=== PATIENT | female | born 1935 | race Caucasian/White ===

== ENCOUNTER 2022-01-19 13:39 | Emergency (ER) | payer MEDICARE, BC, SELFPAY ==
[2022-01-19 13:46] VITALS: BP 178/76; PULSE 178; RESP 18; TEMP 36.7; O2SAT 98; BMI 21.1
--- NOTE | 2022-01-19 14:06 | ED_ITS ---
HPI - General Adult General Time Seen by Provider: 14:06 Date Seen: 01/19/22 Chief complaint: Back Injury/Pain Stated complaint: Back pain Time Seen by Provider: 01/19/22 13:45 Source: patient, RN notes reviewed and old records reviewed Mode of arrival: ambulatory Limitations: no limitations History of Present Illness HPI narrative: Patient is an 86-year-old female coming in with back pain as well as pain along both lower rib borders. Last night about 3 or 4:00 a.m. she had severe pain along her left lower rib cage. She had to press on the area and the counter pressure did give her some relief. Seems like it did go across to the right side. She told her daughter that yesterday if she sat with a pillow behind her back and pressed it into her back it helped diminish back pain. She does have significant scoliosis. Her daughters have been wondering if a brace might help her. They have noticed that her right shoulder seems to have more of a hump in it in she seems to be dropping down more towards on the left side. She did see Dr. Jackson this last week, lumbar spine x-rays were obtained. This lumbar spine show deformity of the lumbar spine with scoliosis and severe degenerative disc disease. There was facet degeneration on the right side extending from L3- S1. Patient denies any fevers or chills, no fall or trauma. She is feeling pain along the upper abdomen along the rib border. Eating does not change this. She has had no respiratory symptoms with this. Sometimes she feels when she gets excited she will feel like she can not catch her breath but she has not had any of these symptoms with current problems. 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 Over 30 years ago there was a question of kidney stones, the urologist could not reportedly get them out. She has a scar on her left low back. She sees a plush cutter Dr. Dent in [place]. She is searched for records but they cannot find any further information as to why she only has 1 kidney now. She has been using Tylenol for the pain. She does not feel like there is pain in her chest from this, does not feel like that this is cardiac pain. Related Data Home Medications Medication Instructions Recorded Confirmed cholecalciferol (vitamin D3) 50 50 mcg PO QDAY 12/27/21 12/27/21 mcg (2,000 unit) capsule Previous Rx's Medication Instructions Recorded simvastatin 10 mg tablet 10 mg PO QPM #90 tabs 12/02/21 Allergies Allergy/AdvReac Type Severity Reaction Status Date / Time No Known Drug Allergies Allergy Verified 12/27/21 13:45 Review of Systems Status of ROS: Reports: 10 or more systems reviewed and unremarkable except as noted in History and below PFSH PFS Surgical History S/P appendectomy S/P breast biopsy S/P cataract extraction S/P cholecystectomy Social History Smoking Status: Former smoker Exam Const: Vital Signs, click to edit/add: Vital Signs - 24 hr 01/19/22 13:46 01/19/22 15:57 Temperature 98.1 F Pulse Rate [Right Pulse Oximeter] 178 H 71 Respiratory Rate 18 16 Blood Pressure [Ri ght Upper Arm] 178/76 H 179/83 H Pulse Oximetry 98 99 Oxygen Delivery Me thod Room Air Room Air Documenting provider has reviewed patient's vital signs: yes Common normals: no apparent distress, average body habitus, oriented x3, no limitations and alert General appearance: cooperative, comfortable, well kempt and frail appearing HENMT: Common normals: normocephalic, head/scalp atraumatic and external ears normal Head and scalp: normocephalic and atraumatic External ear: external ears normal Other: Has hearing aids, mildly hard of hearing. Eye: Common normals: PERRL, EOMs intact bilaterally, conjunctivae normal and no scleral icterus Conjunctiva: conjunctiva(e) normal Pupil: PERRL Neck & C-Spine: Common normals: full ROM, no lymphadenopathy, supple, no meningeal signs, no JVD and thyroid normal Thyroid: thyroid normal Chest: Other: She is kyphotic and has scoliotic changes on inspection of her spine but she is palpably nontender throughout the entirety of her spine. Resp: Common normals: normal respiratory effort, no retractions, no use of accessory muscles and clear to auscultation bilaterally Auscultation: clear to auscultation bilaterally Cardio: Common normals: no JVD, regular rate, regular rhythm, S1 normal heart sound, S2 normal heart sound, no gallops, no clicks and no rub Rate: regular rate Rhythm: regular rhythm Heart sounds: S1 normal, S2 normal and murmur (2/6 soft systolic murmur heard) GI: Common normals: Normal to inspection, nondistended, normoactive bowel sounds present, soft to palpation, non-tender, no hepatosplenomegaly, no masses and no bruits Palpation: soft and no hepatosplenomegaly Other: She is not clinically tender but she states she does feel the pain in the upper left abdomen it does go through the epigastric and the right side. When I question her it may or may not be coming from the back radiating through. : Common normals: no CVA tenderness Bladder/kidney exam: no CVA tenderness Back & Pelvis: Common normals: no CVA tenderness Extremity: Common normals: no calf tenderness and no pedal edema Neuro: Common normals: oriented x3 Sensorium/orientation: alert Meningeal signs: no meningeal signs Psych: Appearance: well kempt Course Course Hospital Course: We will obtain lab work including urinalysis. I will image her thoracic spine as well. Her gallbladder is out, she is known to have significant scoliosis. I do agree that this seems likely that it is musculoskeletal and possibly the degenerative from scoliosis. However, will look at labs and consider intra- abdominal etiology as the cause for the pathology. She is hemodynamically stable, no evidence of any fever. Doubt this is infectious. Reevaluation(s) Reevaluation #1: Reviewed with patient and daughter that the labs are certainly reassuring, thoracic spine with scoliosis but no acute findings. She did ambulate well here to bathroom. It does seem that they were most interested in ruling out acute intra-abdominal pathology with her right kidney. I do not think we need to do abdominal imaging at this time, abdomen was clinically not concerning on examination, labs are normal. She has just been using p.r.n. Tylenol, did discuss using a more scheduled. We did discuss possibility of referral for physical therapy or to a specialist in scoliosis. Her daughter was asked me what could be done for scoliosis, with her new treatments. I reviewed with her that I a.m. more where of treatments at the early spectrum IV younger children. I really do not know what could be offered to her mom at this time. They do have a follow-up in clinic on Thursday and they should keep this. We discussed other pain management and muscle relaxants, many of these medications can have adverse effects and increased risk of fall in the elderly. Her daughter understood. Patient seemed quite comfortable and stable here. Time: 16:25 Vital Signs Vital signs: Initial Vital Signs Temperature 98.1 F 01/19/22 13:46 Temperature Source Temporal Artery Scan 01/19/22 13:46 Pulse Rate 178 H 01/19/22 13:46 Respiratory Rate 18 01/19/22 13:46 Blood Pressure 178/76 H 01/19/22 13:46 Blood Pressure Mean 110 01/19/22 13:46 Blood Pressure Position Sitting 01/19/22 13:46 Pulse Oximetry 98 01/19/22 13:46 Oxygen Delivery Method 01/19/22 13:46 Vital Signs Temperature 98.1 F 01/19/22 13:46 Pulse Rate 178 H 01/19/22 13:46 Respiratory Rate 18 01/19/22 13:46 Blood Pressure 178/76 H 01/19/22 13:46 Pulse Oximetry 98 01/19/22 13:46 Oxygen Delivery Method 01/19/22 13:46 Temperature 98.1 F 01/19/22 13:46 Pulse Rate 71 01/19/22 15:57 Respiratory Rate 16 01/19/22 15:57 Blood Pressure 179/83 H 01/19/22 15:57 Pulse Oximetry 99 01/19/22 15:57 Oxygen Delivery Method 01/19/22 15:57 Medical Decision Making Lab Data Lab results reviewed: Yes I reviewed the patient's lab results Labs: Lab Results 01/19/22 01/19/22 01/19/22 Range/Units 14:56 14:56 14:56 WBC 5.36 (4.50-11.00) K/uL RBC 4.55 (4.00-5.20) m/uL Hgb 13.5 (12.0-16.0) gm/dL Hct 41.6 (33.0-51.0) % MCV 91 (80-100) fL MCH 30 (26-34) pg MCHC 33 (32-36) gm/dL RDW Coeff of Neli 14.6 (11.5-15.5) % Plt Count 229 (140-440) K/uL Neut % (Auto) 67.2 (42.0-72.0) % Lymph % (Auto) 22.8 (20-44) % [place] % (Auto) 8.6 (0.0-11.0) % Eos % (Auto) 0.4 (0.0-7.0) % Baso % (Auto) 0.6 (0.0-3.0) % Neut # (Auto) 3.61 (1.7-7.0) K/uL Lymph # (Auto) 1.22 (0.90-2.90) K/uL [place] # (Auto) 0.50 (0.00-0.90) K/UL Eos # (Auto) 0.02 (0.00-0.50) K/uL Baso # (Auto) 0.03 (0.00-0.30) K/uL Abs Immat Gran (auto) 0.02 (0.00-0.30) K/uL Sodium 139 (135-149) mmol/L Potassium 4.1 (3.6-5.1) mmol/L Chloride 104 (96-114) mmol/L Carbon Dioxide 27 (20-32) mmol/L BUN 17 (7-30) mg/dL Creatinine 1.3 (0.5-1.5) mg/dL Estimated Creat Clear 30.58 Estimated GFR 40 ml/min Glucose 179 H (60-115) mg/dL Lactate 1.8 (0.5-1.9) mmol/L Calcium 9.5 (8.4-10.6) mg/dL Total Bilirubin 0.4 (0.1-1.5) mg/dL AST 26 (12-35) U/L ALT 18 (4-35) U/L Alkaline Phosphatase 65 (40-150) U/L Troponin I < 0.01 L (0.01-0.04) ng/mL C-Reactive Protein < 0.5 L (0.5-1.0) mg/dL NT-Pro-B Natriuret Pep 722 H (0-450) PG/mL Total Protein 6.7 (6.0-8.3) g/dL Albumin 3.9 (3.3-5.0) g/dL Lipase 98 (23-300) U/L Urine Color (Yellow) Urine Appearance (Clear) Urine pH (5.0-8.5) Ur Specific [place] (1.000-1.030) Urine Protein (Negative) Urine Glucose (UA) (Negative) Urine Ketones (Negative) Urine Blood (Negative) Urine Nitrite (Negative) Urine Bilirubin (Negative) Urine Urobilinogen (0.2-1.0) Ur Leukocyte Esterase (Negative) 01/19/22 Range/Units 15:45 WBC (4.50-11.00) K/uL RBC (4.00-5.20) m/uL Hgb (12.0-16.0) gm/dL Hct (33.0-51.0) % MCV (80-100) fL MCH (26-34) pg MCHC (32-36) gm/dL RDW Coeff of [place] (11.5-15.5) % Plt Count (140-440) K/uL Neut % (Auto) (42.0-72.0) % Lymph % (Auto) (20-44) % [place] % (Auto) (0.0-11.0) % Eos % (Auto) (0.0-7.0) % Baso % (Auto) (0.0-3.0) % Neut # (Auto) (1.7-7.0) K/uL Lymph # (Auto) (0.90-2.90) K/uL [place] # (Auto) (0.00-0.90) K/UL Eos # (Auto) (0.00-0.50) K/uL Baso # (Auto) (0.00-0.30) K/uL Abs Immat Gran (auto) (0.00-0.30) K/uL Sodium (135-149) mmol/L Potassium (3.6-5.1) mmol/L Chloride (96-114) mmol/L Carbon Dioxide (20-32) mmol/L BUN (7-30) mg/dL Creatinine (0.5-1.5) mg/dL Estimated Creat Clear Estimated GFR ml/min Glucose (60-115) mg/dL Lactate (0.5-1.9) mmol/L Calcium (8.4-10.6) mg/dL Total Bilirubin (0.1-1.5) mg/dL AST (12-35) U/L ALT (4-35) U/L Alkaline Phosphatase (40-150) U/L Troponin I (0.01-0.04) ng/mL C-Reactive Protein (0.5-1.0) mg/dL NT-Pro-B Natriuret Pep (0-450) PG/mL Total Protein (6.0-8.3) g/dL Albumin (3.3-5.0) g/dL Lipase (23-300) U/L Urine Color Yellow (Yellow) Urine Appearance Clear (Clear) Urine pH 7.0 (5.0-8.5) Ur Specific [place] 1.020 (1.000-1.030) Urine Protein Negative (Negative) Urine Glucose (UA) Negative (Negative) Urine Ketones Negative (Negative) Urine Blood Negative (Negative) Urine Nitrite Negative (Negative) Urine Bilirubin Negative (Negative) Urine Urobilinogen 0.2 (0.2-1.0) Ur Leukocyte Esterase Negative (Negative) Imaging Data X-ray thoracic spine: Attestation: I have reviewed the pertinent imaging results. Radiologist's impression: Patient: MAY HALEY Facility:?[facility] Patient ID:?[id number] Site Patient ID:?[id number]. Site :?[id number] Study:?XRay Spine Thoracic -01/19/2022 3:38:22 PM Ordering Physician:Olga Ramey Final Report: INDICATION: Back pain. Scoliosis. FINDINGS: Four views of the thoracic spine show no evidence of acute fracture or dislocation. Dextro convex scoliotic changes in the lower thoracic spine with mild degenerative changes. No other bony or soft tissue abnormalities identified. Dictated by Felice Jackson MD @ 01/19/2022 3:48:28 PM Dictated by: Felice Jackson MD @ 01/19/2022 15:48:35 (Electronic Signature) Critical Care Time Critical Care Time Critical Care Time: No Discharge Plan Discharge Clinical Impression: Scoliosis, Musculoskeletal back pain Condition: Stable Instructions: Chronic Back Pain (DC) Additional Instructions: Consider using Tylenol more scheduled, can be used 1000 mg 3 times a day. Keep appointment in clinic on Thursday. Could consider trying heat or ice and see if either modality did help. If you have significant increase in her pain, develops fever or new symptoms that suggest that this is not coming from your back, please seek re-evaluation. Activity Level: Activity as Tolerated Prescriptions: No Action cholecalciferol (vitamin D3) 50 mcg (2,000 unit) capsule 50 mcg PO QDAY simvastatin 10 mg tablet 10 mg PO QPM Qty: 90 3RF Follow Up/Referrals: Tito Jackson MD [Primary Care Provider] - Stand Alone Forms: [employer] Info Instructions
--- NOTE | 2022-01-19 14:36 | CRLHL7_ITS ---
For Patients: As a result of the Cures Act, medical imaging exams and procedure reports are released immediately into your electronic medical record. You may view this report before your referring provider. If you have questions, please contact your health care provider. INDICATION: Back pain. Scoliosis. FINDINGS: Four views of the thoracic spine show no evidence of acute fracture or dislocation. Dextro convex scoliotic changes in the lower thoracic spine with mild degenerative changes. No other bony or soft tissue abnormalities identified. Dictated by Felice Jackson MD @ 01/19/2022 3:48:28 PM Dictated by: Felice Jackson MD @ 01/19/2022 15:48:35 (Electronically Signed)
--- OUTSIDE RECORDS SUMMARY | 2022-01-19 14:57 | XMS_ITS | Encounter Summary ---
:1935 Author Organization [facility] Address [address] [place] [address] Care Team Providers Name Role Phone Unavailable Primary Care Provider Unavailable Reason for Visit Reason Comments Chest Pain Pt presents stating she was getting ready for bed in her bathroom when she had an aprox 30 min episode of not feeling well. Symptoms include right sided chest pain, bilat shou lder pain, nausea, paleness,left upper chest pain. Currently states she i s feeling better but does have Encounter Details Date Type Department Care Team Description 07/22/2020 - Emergency [place] [facility] Mer[facility] Serra Chest (Primary Dx); 07/23/2020 Department D, M.D. Presyncope; [address] [place] [phone] Social History Tobacco Use Types Packs/Day Years Used Date Smoking Tobacco: Former Cigarettes 0 Quit : 07/23/1990 Smokeless Tobacco: Never Alcohol Use Standard Drinks/Week Comments Not Currently 0 (1 standard drink = 0.6 oz pure alcoho l) Quit 30-35 years ago Alcohol Habits Answer Date Recorded How often do you have a drink containing alcohol? Not asked How many drinks containing alcohol do you have on Not asked a typical day when you are drinking? How often do you have six or more drinks on one Not asked occasion? Comment: Quit 30-35 years ago 07/23/2020 Sex Assigned at Date Recorded Not on file documented as of this encounter Last Filed Vital Signs Vital Sign Reading Time Taken Comments Blood Pressure 134/74 07/23/2020 3:45 AM CDT Pulse 82 07/23/2020 12:45 AM CDT Temperature 37.1 ??C (98.8 ??F) 07/23/2020 12:45 AM CDT Respiratory Rate 19 07/23/2020 3:45 AM CDT Oxygen Saturation 96% 07/23/2020 12:45 AM CDT Inhaled Oxygen Concentration - - Weight 66.8 kg (147 lb 4.8 oz) 07/22/2020 11:19 PM CDT Height - - Body Mass Index 22.85 11/10/2016 5:05 AM CDT documented in this encounter Medications at Time of Discharge Medication Sig Dispensed Refills Start Date End Date amLODIPine (NORVASC) 2.5 Take 1.25 mg by mouth 0 07/20/2020 mg tablet daily. cholecalciferol (VITAMIN Take 1,000 Units by 0 D3) 1,000 Unit capsule mouth daily. geriatric Take 1 tablet by 0 01/30/2015 mbcnlwnh-qmnt-aigm tablet mouth daily. raloxifene (EVISTA) 60 mg Take 60 mg by mouth 0 1 04/25/2018 tablet at bedtime. simvastatin (ZOCOR) 10 mg Take 10 mg by mouth 0 0 10/28/2014 tablet at bedtime. Vanicream-plasticized base Apply 1 application 0 06/17/2016 80-20 % cream with topically 3 (three) triamcinolone acetonide 40 times a day. mg/mL suspension documented as of this encounter ED Notes Mercedez Serra M.D. - 07/22/2020 10:25 PM CDT [facility] EMERGENCY DEPARTMENT ENCOUNTER Patient Name: Karoline Nuñez PCP: No primary care provider on file. SUBJECTIVE CHIEF COMPLAINT/REASON FOR VISIT Chest Pain (Pt presents stating she was getting ready for bed in her bathroom when she had an aprox 30 min episode of not feeling well. Symptoms include right sided chest pain, bilat shoulder pain, nausea, paleness,left upper chest pain. Currently states she is feeling better but does have ) HISTORY OF PRESENT ILLNESS Karoline Nuñez is a 84 y.o. female history of hypertension and hyperlipidemia, on the prior cholecystectomy who is presenting today with chest pain. States she had a normal day, was getting ready for bed in her bathroom when she had 30 minutes of ???not feeling well. She describes right-sided chest pain that then moved to the left side, radiated to both shoulders, had nausea in the feeling of paleness/lightheadedness, with the lingering symptoms being left upper chest pain for 30 minutes. No syncope but felt off, like she needed to sit. She denies pain in the back, and says her arms felt ???funny?? . She just gave it time and the symptoms passed. She has not had these specific symptoms beforebut daughter does note that 2 years ago she was brought to a different hospital for concerns of potential chest pain but at that time workup was negative. She does note that she does certain movements she can cause some muscle skeletal pain in various areas of her chest shoulders and abdomen, but doesnot think that this is reproducing the pain that happened earlier today. History of former tobacco use and hyperlipidemia along with hypertension as above. At this time she denies anything positive on review of systems and states that her symptoms have resolved by the time of arrival REVIEW OF SYSTEMS Constitutional: Negative for fatigue, fever and loss of appetite. Skin: Negative for skin rash. Respiratory: Negative for coughing up blood, coughing up mucus (phlegm), dry cough and dyspnea. Cardiovascular: Positive for chest pain, pressure or tightness. Negative for swelling in the legs orfeet and rapid or fluttering heart beat. Gastrointestinal: Positive for nausea. Negative for abdominal (belly) pain or cramping, blood in stool and constipation. Hematologic: Negative for bruises or bleeds easily. Musculoskeletal: Negative for back pain. Had pain into the bilateral shoulders Neurological: Positive for light-headedness. Negative for loss of consciousness, numbness or shooting pain in hands, arms, legs, or feet, blackouts and weakness in arms or legs. The following systems were negative: Eyes, ENT, MEDICAL HISTORY Past Medical History: Diagnosis Date ??? Chronic Kidney Disease NOS ??? Hyperlipidemia ??? Hypertension NOS SURGICAL HISTORY Past Surgical History: Procedure Laterality Date ??? APPENDECTOMY N/A Appendectomy ??? BREAST BIOPSY ??? CHOLECYSTECTOMY N/A Cholecystectomy ??? EXCISION OF BUNION N/A Bunionectomy ??? EXTRACTION OF CATARACT N/A 07/24/2016 Cataract extraction ??? TONSILLECTOMY N/A Tonsillectomy ??? TYLECTOMY N/A Lumpectomy FAMILY HISTORY Family History Problem Relation Age of Onset ??? Leukemia Mother ??? Heart attack Son ??? Stroke Brother SOCIAL HISTORY Social History Tobacco Use ??? Smoking status: Former Smoker Packs/day: 0.00 ??? Smokeless tobacco: Never Used Substance Use Topics ??? Alcohol use: Not on file ??? Drug use: Not on file OBJECTIVE VITAL SIGNS BP 134/74 Pulse 82 Temp 37.1 ??C (Temporal) Resp 19 Wt 66.8 kg SpO2 96% BMI 22.85 kg/m?? PHYSICAL EXAMINATION Vitals signs and nursing note reviewed. Constitutional General: She is not in acute distress. Appearance: She is not diaphoretic. HENT Head: Normocephalic and atraumatic. Eyes Conjunctiva/sclera: Conjunctivae normal. Pupils: Pupils are equal, round, and reactive to light. Neck Musculoskeletal: Normal range of motion. No neck rigidity. Cardiovascular Rate and Rhythm: Normal rate and regular rhythm. Pulses: Normal pulses. Heart sounds: Murmur present. Comments: Pulses are equal in all 4 extremities. She does have a roughly 2/6 holosystolic murmur Pulmonary Effort: Pulmonary effort is normal. Breath sounds: Normal breath sounds. No wheezing. Abdominal Palpations: Abdomen is soft. Tenderness: There is no abdominal tenderness. There is no guarding or rebound. Musculoskeletal Normal range of motion. General: No swelling or tenderness. Skin General: Skin is warm. Capillary Refill: Capillary refill takes less than 2 seconds. Coloration: Skin is not pale. Findings: No rash. Neurological General: No focal deficit present. Mental Status: She is alert and oriented to person, place, and time. Motor: No weakness. Psychiatric Mood and Affect: Mood normal. Comments: She can be a bit forgetful but parts of the history and family pieces this together DIAGNOSTICS LABS: Labs Reviewed BASIC METABOLIC PANEL, S/P - Abnormal Result Value Potassium, P 4.3 Sodium, P 139 Chloride, P 105 Bicarbonate, P 27 Anion Gap, P 7 BUN, P 19 Creatinine, P 1.31 (*) eGFR Black 43 (*) eGFR Non-Black 38 (*) Calcium, Total, P 9.4 Glucose, P 119 TROPONIN T, 5TH GEN, P - Abnormal Troponin T, 5th gen 11 (*) SARS CORONAVIRUS 2, PCR RAPID, V SARS CoV-2, PCR, Rapid, V Undetected SARS Coronavirus 2, Source, Rapid Swab, Nasopharynx CBC WITH DIFFERENTIAL, B Hemoglobin 12.7 Hematocrit 38.3 Erythrocytes 4.25 MCV 90.1 RBC Distrib Width 15.0 Platelet Count 208 Leukocytes 4.8 Neutrophils 2.42 Lymphocytes 1.55 Monocytes 0.68 Eosinophils 0.14 Basophils 0.02 TROPONIN T, BASELINE, 5TH GEN, P Troponin T, Baseline, 5th gen 9 TROPONIN T, 2H/6H, 5TH GEN, P Troponin T, 2 hr, 5th gen 10 2H Delta 1 2H Delta Interp Not Changing Troponin T, 6 hr, 5th gen CANCELED Narrative: Specimen Information: Specimen ID: [id number] Specimen Type: Blood Specimen Collection Start Date: 07/22/2020 11:13 PM Specimen Received Date: 07/22/2020 11:23 PM Specimen ID: [id number] Specimen Type: Blood RADIOLOGY: DX Chest AP or PA and Lateral 2 Views Final Result Moderate size hiatal hernia. Nodular opacity projects over the anterior thoracic spine on the lateral view, grossly stable compared to 2016; this could represent overlapping soft tissues, osteophyte formation, or other pulmonary etiology, although benign process is favored given relative stability over several years. No pleural effusion. No pneumothorax. Normal cardiomediastinal silhouette. Thoracolumbar dextroscoliosis. EKG: EKG is showing a left bundle-branch block, with associated ST segment changes. I do not appreciate any other acute ischemic changes EMERGENCY DEPARTMENT COURSE and DIFFERENTIAL DIAGNOSIS/MDM: Patient was given the following medications: Medications sodium chloride 0.9 % injection 3 mL (has no administration in time range) sodium chloride 0.9 % injection 10 mL (has no administration in time range) sodium chloride 0.9 % injection 3 mL (has no administration in time range) sodium chloride 0.9 % injection 3 mL (has no administration in time range) sodium chloride 0.9 % injection 10 mL (has no administration in time range) sodium chloride 0.9 % injection 3 mL (has no administration in time range) aspirin chewable tablet 324 mg (324 mg oral Given 07/22/202129) MDM: 84-year-old female with risk factors for coronary disease including hypertension hyperlipidemia presenting with 30 minutes of bilateral chest pain into shoulders, associated with the feeling of pallor and diaphoresis and nausea, which has now resolved. New left bundle branch block on arrival, no active or current pain. First troponin is negative. I did give her 324 mg of aspirin. Consideration for dissection, no pain into the back, pain has completely resolved, pulses are equal and we been without significant hypertension. History of a solo kidney, along with chronic kidney disease. Cardiac silhouette appears normal an x-ray and with her equal pulses in exam at this time, I think the risks outweigh the benefits of a large contrast bolus for dissection scan as I think this is seeming less likely compared to primary cardiac source. Remains pain-free, no additional medications have been given but will need further cardiac workup due to risk factors and the concerning nature of her story along witha new left bundle branch block. No with systolic murmur and age with other risk factors, benefit from echo for further evaluation of valvular disease. No beds locally, patient is agreeable for transferand family prefers [facility]. ED Course as of Jul 23 356 Sun Jul 22, [id number] Prior are similar, patient with only one kidney and follow with renal Creatinine, P(!): 1.31 2236 Call placed to [facility] 230 Accepted to [facility] by Dr Garcia Mon Jul 23, 2020 0003 Patient is continuing to be a poor historian. I asked her re-explain the events of the evening,and initially she changes the story, but then confirms the above (bilateral chest pain, to both shoulders, into arms, pale appearance, diaphoresis). She states this lasted 30 minutes. I continue to worry about primary cardiac concern. HR is reassuring as is SPO2. Normal pulse exam and no current pain.Despite reassuring first delta trop, will continue with plan for a cardiac eval. I think her risk factors, EKG changes and the limited historian make her higher risk. 0230 [facility] unfortunately has added a delay in getting a bed. Calls placed to [facility] as an alternative option [phone] Accepted to [facility] by Dr Morse 035 Initial was 9, 2 hr 10, now 6 hr 11. likely normal variation in the setting of her kidney disease. No pain. Troponin T, 5th gen(!): 11 Final Diagnoses: as of Jul 23 356 Pain Chest Presyncope Bundle Branch Block Left DISPOSITION/PLAN: [facility] DISCHARGE MEDICATIONS: New Prescriptions No medications on file Mercedez Serra M.D. 07/23/20 0243 Mer[facility] Serra M.D. 07/23/20 0248 Mer[facility] Serra M.D. 07/23/20 0357 documented in this encounter Plan of Treatment Not on filedocumented as of this encounter Procedures Procedure Name Priority Date/Time Associated Comments Diagnosis TROPONIN T, 5TH STAT 07/23/2020 3:29 Results f or this GEN, P AM CDT procedure are i n the results section. SARS CORONAVIRUS 2, STAT 07/22/2020 11:14 Resu lts for this PCR RAPID, V PM CDT procedure are i n the results section. TROPONIN T, 2H/6H, Timed 07/22/2020 11:13 Resul ts for this 5TH GEN, P PM CDT procedure are i n the results section. DX CHEST AP OR PA RAD - Semiurgent 07/22/2020 9:50 Res ults for this AND LATERAL 2 VIEWS (Fast; most ED PM CDT proced ure are in patients; some the results inpatients) section. TROPONIN T, STAT 07/22/2020 9:10 Results for this BASELINE, 5TH GEN, PM CDT procedure are in P the results section. CBC WITH STAT 07/22/2020 9:10 Results for this DIFFERENTIAL, B PM CDT procedure ar e in the results section. BASIC METABOLIC STAT 07/22/2020 9:10 Results f or this PANEL, S/P PM CDT procedure are i n the results section. ECG STAT 07/22/2020 9:07 Results for this PM CDT procedure are i n the results section. documented in this encounter Results (ABNORMAL) Troponin T, 5th Generation (07/23/2020 3:29 AM CDT) P athologist Signature Troponin T, 11 (H) <=10 ng/L 07/23/2020 [facility] gen 3:53 AM CDT Comment: Biotin has been identified by the ellyn galvan as a potential interfering substance. ??Higher concentr ations of biotin may be found in multivitamins, hair/nail supple ments, and workout supplements. ??If the result does not ma [facility] clinical observations, repeat testing after patient refrains fr om the use of supplements for at least 12 hours. Specimen Anatomical Collection Method Collection Time Receive d Time (Source) Location / / Volume Laterality Blood (Blood, 07/23/2020 3:29 AM 07/24/19 21 3:39 Venous) CDT AM CDT Mercedez Serra M.D. LAB BLOOD ADD-ON Performing Organization Address City/[facility] Phon e Number [place] [address] [facility] [address] [address] [place] [address] SARS Coronavirus 2, PCR Rapid, V Symptomatic (07/22/2020 11:14 PM CDT) [facility] Method Time Signature SARS CoV-2, Undetected Undetected 07/22/2020 [facility] PCR, Rapid, V 11:43 PM CDT Comment: ----ADDITIONAL INFORMATION---- This RT-PCR test was performed using the Ralph SARS-CoV-2 and Influenza A/B Reagent assay from [employer], which has received Emergency Use Authori zation(EUA) by the U.S. Food and Drug Administration . Fact sheets for this Emergency Use Autho rization (EUA) assay can be found at the following link s: For Healthcare Providers: https://www.fda.gov/media/283904/downloa d For Patients: https://www.fda.gov/media/101392/downloa d SARS Coronavirus 2, Source, Swab, Nasopharynx 07/12 11:19 PM CDT [facility] Rapid Specimen Anatomical Collection Method Collection Time Receive d Time (Source) Location / / Volume Laterality Varies 07/22/2020 11:14 07/22/2020 (Nasopharynx) PM CDT 11:19 PM CDT Mercedez Serra M.D. LAB MICROBIOLOGY - GENERAL O RDERABLES Performing Organization Address City/[facility]/ZIP Code Phon e Number [place] [address] [facility] [address] [address] [place] [address] Troponin T, 2H/6H, 5th Gen (07/22/2020 11:13 PM CDT) athologist Signature Troponin T, 2 10 <=10 ng/L 07/22/2020 [facility] hr, 5th gen 11:38 PM CDT Comment: Biotin has been identified by the ellyn galvan as a potential interfering substance. ??Higher concentr ations of biotin may be found in multivitamins, hair/nail supple ments, and workout supplements. ??If the result does not ma [facility] clinical observations, repeat testing after patient refrains fr om the use of supplements for at least 12 hours. 2H Delta 1 ng/L 07/22/2020 11:38 PM CDT [facility] 2H Delta Interp Not Changing 07/22/2020 11:38 PM C DT [facility] Troponin T, 6 hr, 5th gen CANCELED ng/L 07/22/2020 11: 38 PM CDT [facility] Comment: Result canceled by the thu kelly Specimen Anatomical Collection Method Collection Time Receive d Time (Source) Location / / Volume Laterality Blood (Blood, 07/22/2020 11:13 07/22/2020 Venous) PM CDT 11:23 PM CDT Narrative [facility] - 07/22/2020 11:38 PM CDT Specimen Information: Specimen ID: [id number] Specimen Type: Blood Specimen Collection Start Date: 07/23/19 11:13 PM Specimen Received Date: 07/22/2020 11:23 PM Specimen ID: [id number] Specimen Type: Blood Mercedez Serra M.D. LAB BLOOD TROPONIN Performing Organization Address City/State/ZIP Code Phon e Number [address] [place] [address] DX Chest AP or PA and Lateral 2 Views (07/22/2020 9:50 PM CDT) Anatomical Region Laterality Modality Chest, Thoracic RST LOS, Thoracic ARZ LOS, Thoracic N/A Digital Radiography FLA LOS Specimen (Source) Anatomical Collection Method Collection Time Re ceived Time Location / / Volume Laterality 07/22/2020 10:30 PM CDT Impressions 07/22/2020 10:39 PM CDT Moderate size hiatal hernia. Nodular opacity projects over the anterior thoracic spine on the lateral v iew, grossly stable compared to 2016; this could represent overlapping soft ti ssues, osteophyte formation, or other pulmonary etiology, although benign proc ess is favored given relative stability over several years. No pleural effusion. No pneumothorax. Normal cardiomediastinal silhouette. Thoracolum bar dextroscoliosis. Narrative 07/22/2020 10:39 PM CDT EXAM: DX CHEST AP OR PA AND LATERAL 2 VIEWS Procedure Note Rahul Wall M.D. - 07/22/2020Format ting of this note might be different from the original. EXAM: DX CHEST AP OR PA AND LATERAL 2 EWS IMPRESSION: Moderate size hiatal hernia. Nodular opa city projects over the anterior thoracic spine on the lateral v iew, grossly stable compared to 2016; this could represent overlapping soft ti ssues, osteophyte formation, or other pulmonary etiology, although benign proc ess is favored given relative stability over several years. No pleural effusion. No pneumothorax. Normal cardiomediastinal silhouette. Thoracolum bar dextroscoliosis. Mercedez Serra M.D. IMG DIAGNOSTIC IMAGING PROCE DOUG Troponin T, Baseline, 5th gen (07/22/2020 9:10 PM CDT) athologist Signature Troponin T, 9 <=10 ng/L 07/22/2020 [facility] Baseline, 5th 9:40 PM CDT gen Comment: Biotin has been identified by the ellyn cturer as a potential interfering substance. ??Higher concentr ations of biotin may be found in multivitamins, hair/nail supple ments, and workout supplements. ??If the result does not ma [facility] clinical observations, repeat testing after patient refrains fr om the use of supplements for at least 12 hours. Specimen Anatomical Collection Method Collection Time Receive d Time (Source) Location / / Volume Laterality Blood (Blood, 07/22/2020 9:10 PM 07/23/19 21 9:17 Venous) CDT PM CDT Mercedez Serra M.D. LAB BLOOD TROPONIN Performing Organization Address City/State/ZIP Code Phon e Number [facility]- [address] [place], [place] [address] [facility] [place] [address] (ABNORMAL) Basic Metabolic Panel (07/22/2020 9:10 PM CDT) Analysis Performed At Patho logist Time Signature Potassium, P 4.3 3.6 - 5.2 07/22/2020 [facility] mmol/L 9:35 PM CDT Sodium, P 139 135 - 145 07/22/2020 [facility] mmol/L 9:35 PM CDT Chloride, P 105 98 - 107 07/22/2020 [facility] mmol/L 9:35 PM CDT Bicarbonate, P 27 22 - 29 07/22/2020 [facility] mmol/L 9:35 PM CDT Anion Gap, P 7 7 - 15 07/22/2020 [facility] 9:35 PM CDT BUN (Blood Urea 19 6 - 21 07/22/2020 [facility] Nitrogen), P mg/dL 9:35 PM CDT Creatinine 1.31 (H) 0.59 - 07/22/2020 [facility] 1.04 mg/dL 9:35 PM CDT eGFR-Black/Afri 43 (L) >=60 07/22/2020 [facility] can [place] mL/min/BSA 9:35 PM CDT Comment: ----ADDITIONAL INFORMATION---- Estimated GFR calculated using the 2009 CKD_EPI creatinine equation. eGFR Non-Black/ 38 (L) >=60 mL/min/BSA 07/22/2020 9:35 PM CDT [facility] [place] Comment: ----ADDITIONAL INFORMATION---- Estimated GFR calculated using the 2009 CKD_EPI creatinine equation. Calcium, Total, P 9.4 8.8 - 10.2 mg/dL 07/22/2020 9:35 PM CDT [facility] Glucose, P 119 70 - 140 mg/dL 07/22/2020 9:35 PM CDT N PRG Specimen Anatomical Collection Method Collection Time Receive d Time (Source) Location / / Volume Laterality Blood (Blood, 07/22/2020 9:10 PM 07/23/19 9:17 Venous) CDT PM CDT Mercedez Serra M.D. LAB BLOOD ADD-ON Performing Organization Address City/State/ZIP Code Phon e Number [facility]- [address] [place], [place] [address] [facility] [place] [place] [address] CBC with Differential, Blood (07/22/2020 9:10 PM CDT) P athologist Signature Hemoglobin 12.7 11.6 - 07/22/2020 [facility] 15.0 g/dL 9:22 PM CDT Hematocrit 38.3 35.5 - 07/22/2020 [facility] 44.9 % 9:22 PM CDT Erythrocytes 4.25 3.92 - 07/22/2020 [facility] 5.13 9:22 PM CDT x10(12)/L MCV 90.1 78.2 - 07/22/2020 [facility] 97.9 fL 9:22 PM CDT RBC Distrib Width 15.0 12.2 - 07/22/2020 [facility] 16.1 % 9:22 PM CDT Platelet Count 208 157 - 371 07/22/2020 [facility] x10(9)/L 9:22 PM CDT Leukocytes 4.8 3.4 - 9.6 07/22/2020 [facility] x10(9)/L 9:22 PM CDT Neutrophils 2.42 1.56 - 07/22/2020 [facility] 6.45 9:22 PM CDT x10(9)/L Lymphocytes 1.55 0.95 - 07/22/2020 [facility] 3.07 9:22 PM CDT x10(9)/L Monocytes 0.68 0.26 - 07/22/2020 [facility] 0.81 9:22 PM CDT x10(9)/L Eosinophils 0.14 0.03 - 07/22/2020 [facility] 0.48 9:22 PM CDT x10(9)/L Basophils 0.02 0.01 - 07/22/2020 [facility] 0.08 9:22 PM CDT x10(9)/L Specimen Anatomical Collection Method Collection Time Receive d Time (Source) Location / / Volume Laterality Blood (Blood, 07/22/2020 9:10 PM 07/23/19 21 9:17 Venous) CDT PM CDT Mercedez Serra M.D. LAB BLOOD ADD-ON Performing Organization Address City/State/ZIP Code Phon e Number [facility]- [address] [place], [place] [address] [facility] [place] [address] ECG 12 Lead (07/22/2020 9:07 PM CDT) P athologist Signature Ventricular Rate 75 BPM MUSE ECG/Min [place] Interval 162 ms MUSE QRSD Interval 142 ms MUSE QT Interval 432 ms MUSE QTC Interval 482 ms MUSE P [place] 40 degrees MUSE R [place] 36 degrees MUSE T Wave [place] 36 degrees MUSE Specimen Anatomical Collection Method Collection Time Receive d Time (Source) Location / / Volume Laterality 07/22/2020 9:07 PM 8:42 CDT AM CDT Impressions MUSE - 07/22/2020 9:16 PM CDT Normal sinus rhythm Left bundle branch block T wave abnormality, consider lateral isc hemia When compared with ECG of 06-JAN-2016 12 :43, Premature ventricular complexes are no l onger present Left bundle branch block is now present Reviewed by SHEA Tompkins Narrative This result has an attachment that is no t available. Procedure Note Jason Doan M.D. - 07/23/2020Formatt ing of this note might be different from the original. IMPRESSION: Normal sinus rhythm Left bundle branch block T wave abnormality, consider lateral isc hemia When compared with ECG of 06-JAN-2016 12 :43, Premature ventricular complexes are no l onger present Left bundle branch block is now present Reviewed by SHEA Tompkins Mercedez Serra M.D. ECG ORDERABLES Performing Organization Address City/State/ZIP Code Phon e Number MUSE MUSE NA documented in this encounter Visit Diagnoses Diagnosis Pain Chest - Primary Presyncope Bundle Branch Block Left documented in this encounter Administered Medications Inactive Administered Medications - up to 3 most recent administrations Medication Order MAR Action Action Date Dose Rate Site aspirin chewable tablet 324 mg Given 07/22/2020 9:30 PM CDT 324 mg 324 mg, oral, Once, On 07/22/20 at 2121, For 1 dose sodium chloride 0.9 % injection 10 mL 10 mL, intravenous, As needed, line care, Starting on Thu07/22/20 at 2102, Peripheral Intravenous Catheter and Rapid Infusion Cat heter, prior to blood sampling, post blood transfusion or post blood samplin g sodium chloride 0.9 % injection 10 mL 10 mL, intravenous, As needed, line care, Starting on [place] 07/22/20 at 2105, Peripheral Intravenous Catheter and Rapid Infusion Cat heter, prior to blood sampling, post blood transfusion or post blood samplin g sodium chloride 0.9 % injection 3 mL 3 mL, intravenous, As needed, line care, Starting on [place] 07/22/20 at 2102, Prior to and following infusion and between multi ple consecutive infusions: sodium chloride 0.9 % injection sodium chloride 0.9 % injection 3 mL 3 mL, intravenous, Every 12 hours scheduled, First dos e on Thu07/23/20 at 0900, Peripheral Intravenous Catheter and Rapi d Infusion Catheter, when no infusion to maintain patency sodium chloride 0.9 % injection 3 mL 3 mL, intravenous, As needed, line care, Starting on [place] 07/22/20 at 2105, Prior to and following infusion and between multi ple consecutive infusions: sodium chloride 0.9 % injection sodium chloride 0.9 % injection 3 mL 3 mL, intravenous, Every 12 hours scheduled, First dos e on Thu07/23/20 at 0900, Peripheral Intravenous Catheter and Rapi d Infusion Catheter, when no infusion to maintain patency documented in this encounter Active and Recently Administered Medications Times are shown in CDT. Scheduled Medication Order 07/21/2020 07/22/2020 07/23/2020 aspirin chewable tablet 324 mg (COMPLETED) 2129 (Given - Provider: Jenny Martinez R.N.) 324 mg, oral, Once, On [place] 07/22/20 at 2121, For 1 dose sodium chloride 0.9 % injection 3 mL 3 mL, intravenous, Every 12 hours schedu led, First dose on Thu07/23/20 at 0900, Peripheral Intravenous Catheter and Rapid Infusion Catheter, when no infusion to maintain patency sodium chloride 0.9 % injection 3 mL 3 mL, intravenous, Every 12 hours schedu led, First dose on Thu07/23/20 at 0900, Peripheral Intravenous Catheter and Rapid Infusion Catheter, when no infusion to maintain patency PRN Medication Order 07/21/2020 07/22/2020 07/23/2020 sodium chloride 0.9 % injection 10 mL 10 mL, intravenous, As needed, line care , Starting on 07/22/20 at 2102, Peripheral Intravenous Catheter and Rapid Infusion Catheter, prior to blood sampling, post blood transfusion or post blood sampling sodium chloride 0.9 % injection 10 mL 10 mL, intravenous, As needed, line care , Starting on 07/22/20 at 2105, Peripheral Intravenous Catheter and Rapid Infusion Catheter, prior to blood sampling, post blood transfusion or post blood sampling sodium chloride 0.9 % injection 3 mL 3 mL, intravenous, As needed, line care, Starting on 07/22/20 at 2102, Prior to and following infusion and between multiple consecutive infusions: sodium chloride 0.9 % injection sodium chloride 0.9 % injection 3 mL 3 mL, intravenous, As needed, line care, Starting on 07/22/20 at 2105, Prior to and following infusion and between multiple consecutive infusions: sodium chloride 0.9 % injection documented in this encounter Additional Health Concerns Infection Onset Date Last Indicated Resolved Time COVID19 Pending 07/22/2020 07/22/2020 07/22/2020 11:43 PM CDT documented as of this encounter
--- OUTSIDE RECORDS SUMMARY | 2022-01-19 14:57 | XMS_ITS | Encounter Summary ---
:1935 Author Organization [facility] Address [address] [place] [address] Care Team Providers Name Role Phone Unavailable Primary Care Provider Unavailable Reason for Visit Reason Onset Date Comments Testing For Upper Respiratory Virus Symptoms 03/15/2021 Encounter Details Date Type Department Care Team Description 03/15/2021 External Outreach Department of [facility] Noreen Kimbrough, Contact With And Medicine in [facility] C.N.P., (Suspected) Exposure [place], [place] D.N.P. To COVID-19 (Primary [address] Dx) [place] [phone] Social History Tobacco Use Types Packs/Day Years [...] on file documented as of this encounter Progress Notes Charleen Jolly, R.M.A. - 03/15/2021 7:53 AM CST Encounter created for symptomatic infectious disease screening with possible COVID, Influenza, RSV, and/or Group A Strep testing. ER MAKER documented in this encounter Plan of Treatment Not on filedocumented as of this encounter Procedures Procedure Name Priority Date/Time Associated Diagnosis Comme nts SARS CORONAVIRUS-2 Routine 03/15/2021 12:55 PM Contact With An d Results for this RNA, V MARKER MAKER (Suspected) Exposure procedu re are in To COVID-19 the results section. documented in this encounter Results SARS Coronavirus-2 RNA, V Symptomatic (03/15/2021 12:55 PM MARKER MAKER) [facility] Method Time Signature SARS-CoV-2 Swab, 03/16/2021 MKTO Specimen Nasopharynx 12:40 AM Source MARKER MAKER SARS CoV-2 Undetected Undetected 03/16/2021 MKTO RNA, TMA 12:40 AM MARKER MAKER Comment: SARS-CoV-2 RNA absent. This result does not rule out COVID-19 in the patient, as the sensitivity of the test depends o n the timing of the specimen collection and the quality of the specim en. Result should be correlated with patient's history and clinical presentat ion. ----ADDITIONAL INFORMATION---- This molecular amplification test was pe rformed using the Aptima SARS-CoV-2 assay ([employer] on the [place] ERNs tem under emergency use authorization (EUA) by the U.S. Food and Drug Administ ration. Fact sheets for this EUA assay can be fo und at the following links: For Healthcare Providers: https://www.fd a.gov/media/008767/download For Patients: https://www.fda.gov/media/ 689823/download Specimen Anatomical Collection Method Collection Time Receive d Time (Source) Location / / Volume Laterality Varies 03/15/2021 12:55 03/15/2021 6:01 (Nasopharynx) PM MARKER MAKER PM MARKER MAKER Noreen Kimbrough APRN, C.N.P., D.N.P. LAB MICROBIOLOGY - GENERAL ORDERABLES Performing Organization Address City/State/ZIP Code Phon e Number [facility]- [address] [place] [address] [id number] [place] [address] [address] documented in this encounter Visit Diagnoses Diagnosis Contact With And (Suspected) Exposure To COVID-19 - Primary documented in this encounter Additional Health Concerns Infection Onset Date Last Indicated Resolved Time COVID19 Pending 03/15/2021 03/15/2021 03/16/2021 12:41 AM MARKER MAKER documented as of this encounter
--- OUTSIDE RECORDS SUMMARY | 2022-01-19 14:57 | XMS_ITS | Encounter Summary ---
:1935 Author Organization [facility] Address [address] [place] [address] Care Team Providers Name Role Phone Barbra Ryder M.D., Vinnie Vasquez Primary Care Provider Encounter Details Date Type Department Care Team Description 02/23/2019 Hospital Encounter Department of Vinnie Belle Routine Screening Radiology in Jelani Ryder M.D. Breast Exam [place], [place] [address] [place] [phone] Social History Tobacco Use Types Packs/Day Years Used Date Smoking Tobacco: Former Cigarettes 0 Smokeless Tobacco: Never Sex Assigned at Date Recorded Not on file documented as of this encounter Medications at Time of Discharge Medication Sig Dispensed Refills Start Date End Date cholecalciferol (VITAMIN Take 1,000 Units by 0 D3) 1,000 Unit capsule mouth daily. geriatric Take 1 tablet by 0 01/30/2015 oyegsoeq-tybg-ldyy tablet mouth daily. raloxifene (EVISTA) 60 mg Take 60 mg by mouth 0 1 04/25/2018 tablet at bedtime. simvastatin (ZOCOR) 10 mg Take 10 mg by mouth 0 0 10/28/2014 tablet at bedtime. Vanicream-plasticized Apply 1 application 0 06/17 base 80-20 % cream with topically 3 (three) triamcinolone acetonide times a day. 40 mg/mL suspension ofloxacin (OCUFLOX) 0.3 % Administer 5 drops 5 mL 0 03/02/2019 ophthalmic solution into the left ear 2 (two) times a day for 7 days. ibuprofen (ADVIL,MOTRIN) Take 400 mg by mouth 0 07/23/2020 400 mg tablet as needed for pain. raNITIdine (ZANTAC) 150 150 mg. 0 10/28/2014 0 07/23/2020 mg tablet documented as of this encounter Plan of Treatment Not on filedocumented as of this encounter Procedures Procedure Name Priority Date/Time Associated Comments Diagnosis BI BREAST SCREENING Routine 02/23/2019 10:39 Routine Screening Results for this BILATERAL WITH AM POSTAL SUPERVISOR Breast Exam procedure are in TOMOSYNTHESIS the results section. documented in this encounter Results BI Breast Screening Bilateral with Tomosynthesis (02/23/2019 10:39 AM POSTAL SUPERVISOR) Anatomical Region Laterality Modality Breast, Breast Imaging [facility] LOS, Breast Imaging ARZ LOS, [address] st Bilateral Mammography Imaging FLA LOS Specimen (Source) Anatomical Collection Method Collection Time Re ceived Time Location / / Volume Laterality 02/23/2019 11:15 AM POSTAL SUPERVISOR Impressions 02/23/2019 11:17 AM POSTAL SUPERVISOR Negative. RECOMMENDATION: ??Annual Screening Mammo gram ASSESSMENT: ??BI-RADS: 1: Negative. Narrative 02/23/2019 11:17 AM POSTAL SUPERVISOR EXAM: ??BI BREAST SCREENING BILATERAL WITH TOMOSYNTHESIS Current study was evaluated with a Compu ter Aided Detection (CAD) system. INDICATION: ??Screening mammogram. COMPARISON: ??Prior exam(s) were availab le and reviewed for comparison. DENSITY: ??b. There are scattered areas of fibroglandular density. FINDINGS: ??No mammographic findings of malignancy. Procedure Note Kristopher Morris M.D. - 02/23/2019Fo rmatting of this note might be different from the original. EXAM: BI BREAST SCREENING BILATERAL WITH TOMOSYNTHESIS Current study was evaluated with a Compu ter Aided Detection (CAD) system. INDICATION: Screening mammogram. COMPARISON: Prior exam(s) were available and reviewed for comparison. DENSITY: b. There are scattered areas of fibroglandular density. FINDINGS: No mammographic findings of ma lignancy. IMPRESSION: Negative. RECOMMENDATION: Annual Screening Mammogr am ASSESSMENT: BI-RADS: 1: Negative. Vinnie Belle Jr., M.D. IMG BI PROCEDURES documented in this encounter Visit Diagnoses Diagnosis Routine Screening Breast Exam documented in this encounter Care Teams Security Orderly Relationship Specialty Start Date End Date Vinnie Belle Jr., M.D. PCP - General 09/25/16 02/24/19 [address] [place] [address] documented as of this encounter
--- OUTSIDE RECORDS SUMMARY | 2022-01-19 14:57 | XMS_ITS | Clinical Summary ---
:1935 Author Organization [facility] [place] [address] Care Team Providers Name Role Phone Tito Jackson MD Primary Care Provider Allergies Active Allergy Reactions Severity Noted Date Comments Iron Rash 08/25/2016 Sulfamethoxazole-Trimethoprim Rash 11/14/2014 Medications Medication Sig Dispensed Refills Start Date End Date Status cholecalciferol (VITAMIN Take 1 capsule 0 11/14/2014 Active D) 1,000 unit capsule by mouth once daily. geriatric Take 1 tablet by 0 01/30/2015 Ac tive xxjnpewriypr-htmp-odhwlo mouth once ls (GERITOL; CENTRUM daily. SILVER) tablet raloxifene (EVISTA) 60 1 tablet once 10 01/30/2015 Active mg tablet daily. simvastatin (ZOCOR) 10 1 tablet once 1 02/14/2015 Active mg tablet daily with evening meal. amLODIPine (NORVASC) 2.5 Take 1.25 mg by 0 1 Active mg tablet mouth. acetaminophen (TYLENOL Take 500 mg by 0 Active EXTRA STRGTH) 500 mg mouth every 6 tablet hours if needed. polyvinyl alcohol OTC Dry Eye Eye Drops-one drop in each eye 15 mL 0 10/03/2021 Active (ARTIFICAL TEARS) 1.4 % PRN for dry eyes. ophthalmic solution Active Problems No known active problems Encounters Date Type Specialty Care Team Description 11/04/2021 Telephone Maria Dent MD Resu lts (Basic metabolic panel) from Last 3 Months Social History Tobacco Use Types Packs/Day Years Used Date Former Smoker Cigarettes 0.25 3 Smokeless Tobacco: Never Used Alcohol Use Standard Drinks/Week Comments No 0 (1 standard drink = 0.6 oz pure alcoho l) Sex Assigned at Date Recorded Not on file Obstetrics History Last Filed Vital Signs Vital Sign Reading Time Taken Comments Blood Pressure 138/68 10/03/2021 3:32 PM CDT Pulse 76 10/03/2021 3:32 PM CDT Temperature - - Respiratory Rate 16 08/25/2016 9:46 AM CDT Oxygen Saturation - - Inhaled Oxygen Concentration - - Weight 61 kg (134 lb 8 oz) 10/03/2021 3:32 PM CDT water Height 171 cm (5' 7.32) 08/31/2018 9:39 AM CDT Body Mass Index 20.86 08/31/2018 9:39 AM CDT Plan of Treatment Upcoming Encounters Date Type Specialty Care Team Description 10/02/2022 Office Visit Maria Dent MD [address] [facility] [address] [phone] (Wo rk) Health Maintenance Due Date Last Done Comments Tdap 12/15/1946 Depression screening for age 12+ 1948 Tetanus booster 1956 Zoster (shingles) series for age 50+ (1 of 1986 2) DEXA/DXA scan for age 65+ 2001 Medicare Wellness for age 65+ 2001 Pneumococcal series for age 65+ (1 - PCV) 2001 BMI (ht and wt on same day) for age 18+ 09/01/2019 09/01/19 19 COVID-19 vaccine series (3 - Booster for 11/06/2020 021, 05/19/2020 Pfizer series) Influenza for age 65+ 12/12/2021 Results Not on filefrom Last 3 Months Insurance Payer Benefit Plan / Subscriber ID Effective Dates Phone Addre ss Type Group MEDICARE PART B MEDICARE PART B [id number] 2001-Presen ATTN: CLAIMS - HB USE ONLY HB ONLY t [address] [place] [address] [employer]UE [employer] BLUE [employer]OSS [id number] 2014-[place]en [id number] [place] [address] [place], [place] [id number] BLUE CROSS [place] BLUE CROSS [id number] 2017-Presen [address] [address] [place] [address] [place], [place] ONLY [id number] Care Teams Slate Splitting Supervisor Relationship Specialty Start Date End Date Tito Jackson MD PCP - General Family Practice 08/14/20 [address] [place] [address]
--- OUTSIDE RECORDS SUMMARY | 2022-01-19 14:57 | XMS_ITS | Encounter Summary ---
:1935 Author Organization [facility] Address [address] [place] [address] Care Team Providers Name Role Phone Unavailable Primary Care Provider Unavailable Encounter Details Date Type Department Care Team Description 03/14/2021 Clinical Communication Urgent Care, [facility], in [place], [place] [address] [place] [id number] Social History Tobacco Use Types Packs/Day Years [...] on file documented as of this encounter Miscellaneous Notes Telephone Encounter - Broderick Clifton N - 03/14/2021 12:18 PM CST What is the purpose of the call?: Requesting Testing Only Request Testing In the past 14 days are any of the following symptoms new to you and not related to an existing health condition?: No symptoms noted In the past 14 days have you had close contact* with a person who has a LABORATORY CONFIRMED case ofCOVID-19?: Yes exposure noted. [place] patient, instruct to quarantine, testing indicated (End Screening) Plan: Endpoint recommendation: Testing indicated, advised to be swabbed for COVID-19 Only , sent to [facility]: An appointment is needed for testing. Call [phone] during the hours of Mon-Fri 8 am - 4 pm or Sat/Sun 9 am - 2 pm to schedule an appointment time. Scheduling staff will provide instructions on location and check in for your appointment. , Please avoid using public transportation perCDC recommendation. If you do not have personal transportation please self-quarantine until a personal transportation option is available. o *Reminder if sending patient for testing in [facility] or [facility], route encounter to the correct testing pool. ENT DEVELOPMENT ADVISOR documented in this encounter Plan of Treatment Not on filedocumented as of this encounter Visit Diagnoses Not on filedocumented in this encounter Additional Health Concerns Infection Onset Date Last Indicated Resolved Time COVID19 Pending 03/15/2021 03/15/2021 03/16/2021 12:41 AM STUDENT DEVELOPMENT ADVISOR documented as of this encounter
--- OUTSIDE RECORDS SUMMARY | 2022-01-19 14:57 | XMS_ITS | Clinical Summary ---
:1935 Author Organization [facility] Address [address] [place] [address] Care Team Providers Name Role Phone Unavailable Primary Care Provider Unavailable Source Comments Patient records contain information from all sites at [facility]. For routine questions regarding patient records, call [phone] during business hours, M-F 8:00 AM - 5:00 PM Central Time. Record requests for emergency care only can be directed to [phone] at any time.[facility] Allergies Active Allergy Reactions Severity Noted Date Comments Iron Rash 08/25/2016 Sulfamethoxazole-Trimethoprim Rash 10/19/2014 Zinc Acetate Rash 03/24/2013 Medications Medication Sig Dispensed Refills Start Date End Date Status raloxifene (EVISTA) 60 Take 60 mg by 0 02/23/2019 Active mg tablet mouth at bedtime. simvastatin (ZOCOR) 10 Take 10 mg by 0 10/28/2014 Active mg tablet mouth at bedtime. Vanicream-plasticized Apply 1 0 06/17/2016 Active base 80-20 % cream application with triamcinolone topically 3 acetonide 40 mg/mL (three) times a suspension day. cholecalciferol Take 1,000 Units 0 11/14/2014 Active (VITAMIN D3) 1,000 by mouth daily. Unit capsule geriatric Take 1 tablet by 0 01/30/2015 Ac tive nwmfcwdj-pwgk-jrfw mouth daily. tablet amLODIPine (NORVASC) Take 1.25 mg by 0 07/20/2020 Active 2.5 mg tablet mouth daily. acetaminophen Take 500 mg by 0 A ctive (TYLENOL) 500 mg mouth every 6 tablet (six) hours as needed for pain. 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 10/19/2014 Overview: Chronic Renal Failure Stage IV GFR 15-29 Hypertension NOS 10/19/2014 Overview: Hypertension (HTN) Essential NOS Family History Medical History Relation Name Comments Stroke Brother Leukemia Mother Heart attack Son Relation Name Status Comments Brother Mother Son Social History Tobacco Use Types Packs/Day Years [...] Assigned at Date Recorded Not on file Last Filed Vital Signs Vital Sign Reading Time Taken Comments Blood Pressure 149/70 07/23/2020 5:15 AM CDT Pulse 81 07/23/2020 5:15 AM CDT Temperature 36.5 ??C (97.7 ??F) 07/23/2020 11:00 AM CDT Respiratory Rate 18 07/23/2020 5:15 AM CDT Oxygen Saturation 95% 07/23/2020 5:15 AM CDT Inhaled Oxygen Concentration - - Weight 65.4 kg (144 lb 2.9 oz) 07/23/2020 5:15 AM CDT Height 170.2 cm (5' 7) 07/23/2020 5:15 AM CDT Body Mass Index 22.58 07/23/2020 5:15 AM CDT Plan of Treatment Health Maintenance Due Date Last Done Comments Depression Monitoring (PHQ-9) 1935 Office Visit for Blood Pressure 1935 Check / Re-check Zoster Vaccines (1 of 2) 04/01/2012 02/05/2012 Pneumococcal vaccine (65+ years) 01/09/2018 01/09/2017, , (2 - PPSV23 or PCV20) 02/07/2014 Fall Risk Screen (Annual) 04/13/2021 COVID-19 Vaccine (4 - Booster for 12/23/2021 10/28/2021, , Pfizer series) 05/19/2020 Influenza Vaccine (#1) 2022 01/22/2021, 01/27/2019, 01/19/2018, Additional history exists DTaP,Tdap,and Td Vaccines (3 - Td 08/13/2028 08/13/2018, or Tdap) Insurance Payer Benefit Plan Subscriber ID Effective Phone Address Typ e / Group Dates MEDICARE MEDICARE A [id number] 2001-Pres [address] [place] [address] [employer]UE [employer] [id number] 2016-Pres [phone] [address] Cost Share BLUE SHIELD BLUE COST ent [phone] [place] [address] Advance Directives For more information, please contact: [phone] Latest Code Status on File Code Status Date Activated Date Inactivated Comments Full Code 07/23/2020 6:09 AM 07/23/2020 9:41 PM Full Code: Discussed
--- OUTSIDE RECORDS SUMMARY | 2022-01-19 14:57 | XMS_ITS | Encounter Summary ---
:1935 Author Organization [facility] Address [address] [place] [address] Care Team Providers Name Role Phone Unavailable Primary Care Provider Unavailable Encounter Details Date Type Department Care Team Description 05/22/2016 Hospital Encounter HX [facility] Charisma He P.A.-C., VANDANA Social History Tobacco Use Types Packs/Day Years Used Date Smoking Tobacco: Former Sex Assigned at Date Recorded Not on file documented as of this encounter Last Filed Vital Signs Vital Sign Reading Time Taken Comments Blood Pressure 132/64 05/22/2016 3:32 PM ASSEMBLER CAMPER Pulse 112 05/22/2016 3:32 PM ASSEMBLER CAMPER Temperature - - Respiratory Rate - - Oxygen Saturation - - Inhaled Oxygen Concentration - - Weight - - Height - - Body Mass Index - - documented in this encounter Medications at Time of Discharge Medication Sig Dispensed Refills Start Date End Date cholecalciferol (VITAMIN Take 1,000 Units 0 11/14 D3) 1,000 Unit capsule by mouth daily. geriatric Take 1 tablet by 0 01/30/2015 ifpugioq-uovs-nuhn tablet mouth daily. simvastatin (ZOCOR) 10 mg Take 10 mg by 0 015 tablet mouth at bedtime. raNITIdine (ZANTAC) 150 mg 150 mg. 0 5 07/23/2020 tablet documented as of this encounter Progress Notes James Huffman P.A.-C. - 05/22/2016 2:44 PM CST [id number] CHIEF COMPLAINT/REASON FOR VISIT Sore throat. Please see the medication and allergy tabs in [employer]. They were updated today. HISTORY OF PRESENT ILLNESS The patient started with a sore throat today. She has not had any fever, fatigue or body aches. She has otherwise been feeling well. She did have a cold a short time ago that she got over. The patient is a former smoker. She quit in 1969. SYSTEMS REVIEW CONSTITUTIONAL: Negative for fever, fatigue or body aches. ENT: No ear pain. No nasal congestion. She does have a sore throat. It hurts to swallow. RESPIRATORY: No cough. SKIN: No rashes. GI: No stomach upset. NEURO: No headaches. TESTS: Rapid strep test is negative. Culture is pending. PAST MEDICAL/SURGICAL HISTORY Past medical history, the patient does have: Chronic renal failure. Depression. Reflux. Hypertension. Tricuspid regurgitation. She is seen in another clinic. PHYSICAL EXAMINATION PSYCH: Alert and oriented. No acute distress. ENT: Ears: TMs pearly valadez. Nose: Clear nasal drainage. No congestion noted. Throat: Mild erythema in posterior pharynx. No lymphadenopathy. LUNGS: Clear to auscultation. HEART: Mildly tachycardic at 112. NECK: Supple. SKIN: [place], warm and dry. IMPRESSION/REPORT/PLAN 1. Non-Streptococcal pharyngitis. 2. Viral syndrome. Could even be allergy related. She does not seem to be sick at all. PLAN: Rest, fluids. I did suggest she try her allergy medicine for a couple of weeks to see what that does. She is to follow up if any further concerns arise or symptoms are just not improving over thenext few days. She is in agreement with this plan. Ida Saeed/pos Electronically Signed By: JAMES HUFFMAN PA-C On: 05/26/2016 02:30 PM Source: [facility] MHSDOLBEYNONRADSYS Document Id: [id number] MBLER CAMPER documented in this encounter Procedure Notes Gagan Tran C.M.A. - 05/22/2016 3:48 PM CST Rapid Strep A Screen POC Rapid Strep A Screen POC Entered On: 05/22/2016 15:48 ASSEMBLER CAMPER Performed On: 05/22/2016 15:48 ASSEMBLER CAMPER by GAGAN TRAN CMA Rapid Strep A Screen POC Rapid Strep A Screen POC : Negative Internal Positive QC : Pass Internal Negative QC : Pass Rapid Strep Device Lot Number : [id number] Rapid Strep Device Expiration Date : 08/10/2017 CDT CHELSEA GAGAN Birch [facility] - 05/22/2016 15:48 ASSEMBLER CAMPER Source: [facility] POWERCHART Document Id: [id number] ASSEMBLER CAMPER!7 MBLER CAMPER documented in this encounter Miscellaneous Notes Miscellaneous - James Huffman P.A.-C. - 05/22/2016 3:56 PM CST Ambulatory Patient Summary Express Care - [address] [phone] Visit Information Name: KAROLINE HALEY [facility] Number: [id number] Current Date: 05/22/2016 15:56:00 Physicians Attending Provider: JAMES HUFFMAN PA-C Primary Care Provider: BRITNEY BALDWIN MD KAROLINE HALEY has been given the following list of follow-up instructions, medication list, and patient education materials: Follow-up Instructions Your Medications Here is a list of your medications. It is important to take your medications as directed. Use a pillbox or chart to help remind you to take your medications. Please let your doctor or nurse know if you have problems taking your medications. Medication/Strength How to Take Indications/Special Instructions/Comments/Notes for Patient Medication Changes/Routing *ascorbic acid (ascorbic acid 500 mg oral tablet) 1 Tablet(s), Oral, two times a day aspirin (aspirin 81 mg oral delayed release tablet) 1 Tablet(s), Oral, once a day cholecalciferol (Vitamin D3 1000 intl units oral tablet) 1 Tablet(s), Oral, once a day *ferrous gluconate (ferrous gluconate 325 mg (36 mg elemental iron) oral tablet) 1 Tablet(s), Oral, two times a day multivitamin with minerals (Centrum Silver Women's oral tablet) orphenadrine (orphenadrine 100 mg oral tablet, extended release) 1 Tablet(s), Oral, as needed raloxifene (raloxifene 60 mg oral tablet) 1 Tablet(s), Oral, once a day ranitidine (ranitidine 150 mg oral tablet) 1 Tablet(s), Oral, once a day (at bedtime) *saccharomyces boulardii lyo (saccharomyces boulardii lyo 250 mg oral capsule) 1 cap, Oral, two times a day simvastatin (simvastatin 10 mg oral tablet) 1 Tablet(s), Oral, once a day (at bedtime) *traZODone (traZODone 50 mg oral tablet) 0.5 Tablet(s), Oral, once a day (at bedtime) as needed for Sleep * You have let us know that you are not taking this medication as listed. Please talk with your primary care provider or the health care provider who prescribed the medication as soon as possible. Stop Taking the Following Medications: Medication list as of 05-22-16 15:56 Attention: If you have any medications at home that are not on this list, DO NOT take them until youcontact your provider for clarification. Give a copy of your medication list to your primary care provider. Update your medication list any time medications or doses are changed and carry your medication list at all times in case of emergency. Electronically Signed By: Signed On: Your Allergies & Intolerances Substance Reaction Symptoms Category Comments Septra Drug zinc acetate containing compounds rash Drug Your Problem List Problem Status Onset Comments Hypertension (HTN) Essential NOS Active Disease Gastroesophageal Reflux (GERD JAMEY) Active Chronic Renal Failure Stage IV GFR 15-29 Active Regurgitation Tricuspid NOS Active Depression NOS Active Your Upcoming Appointments Date Time Location Provider No Appointments found Attention: Contact your local Clinic if further appointment detail needed. Consider Using Patient Online Services Patient Online Services is a secure online and Mobile application that lets you: ?? View lab and test results ?? View portions of your medical record including clinical notes, immunizations and discharge summaries ?? Request an appointment or medication refill ?? Review your appointment schedule ?? Send secure messages to your care team Its easy to create an account if you dont have one. Go to [email or web address] and click on Create Your Account. Then, follow the directions to complete the online form. Youll be asked for your [facility] number which you can find at the top of this document. Your Goals/Additional instructions: Source: [facility] POWERCHART Document Id: [id number] MBLER CAMPER Miscellaneous - James Huffman P.A.-C. - 05/22/2016 3:56 PM CST Ambulatory Discharge Medication List Express Care - [address] [id number] Visit Information Name: SUDHAKAROLINE [facility] Number: [id number] Current Date: 05/22/2016 15:56:00 Attending Provider: JAMES HUFFMAN PA-C Primary Care Provider: BRITNEY BALDWIN MD SUDHAKAROLINE has been given the following list of medications: Your Medications It is important to take your medications as directed. Use a pill box or chart to help remind you to take your medications. Please let your doctor or nurse know if you have problems taking your medications. Medication/Strength How to Take Indications/Special Instructions/Comments/Notes for Patient Medication Changes/Routing *ascorbic acid (ascorbic acid 500 mg oral tablet) 1 Tablet(s), Oral, two times a day aspirin (aspirin 81 mg oral delayed release tablet) 1 Tablet(s), Oral, once a day cholecalciferol (Vitamin D3 1000 intl units oral tablet) 1 Tablet(s), Oral, once a day *ferrous gluconate (ferrous gluconate 325 mg (36 mg elemental iron) oral tablet) 1 Tablet(s), Oral, two times a day multivitamin with minerals (Centrum Silver Women's oral tablet) orphenadrine (orphenadrine 100 mg oral tablet, extended release) 1 Tablet(s), Oral, as needed raloxifene (raloxifene 60 mg oral tablet) 1 Tablet(s), Oral, once a day ranitidine (ranitidine 150 mg oral tablet) 1 Tablet(s), Oral, once a day (at bedtime) *saccharomyces boulardii lyo (saccharomyces boulardii lyo 250 mg oral capsule) 1 cap, Oral, two times a day simvastatin (simvastatin 10 mg oral tablet) 1 Tablet(s), Oral, once a day (at bedtime) *traZODone (traZODone 50 mg oral tablet) 0.5 Tablet(s), Oral, once a day (at bedtime) as needed for Sleep * You have let us know that you are not taking this medication as listed. Please talk with your primary care provider or the health care provider who prescribed the medication as soon as possible. Stop Taking the Following Medications: Medication list as of 05-22-16 15:56 Attention: If you have any medications at home that are not on this list, DO NOT take them until youcontact your provider for clarification. Give a copy of your medication list to your primary care provider. Update your medication list any time medications or doses are changed and carry your medication list at all times in case of emergency. Electronically Signed By: Signed On: Additional Information: Source: [facility] POWERCHART Document Id: [id number] MBLER CAMPER Miscellaneous - Gagan Tran C.M.A. - 05/22/2016 3:32 PM CST Adult Digital Project Manager Intake/History Adult Digital Project Manager Intake/History Entered On: 05/22/2016 15:35 ASSEMBLER CAMPER Performed On: 05/22/2016 15:32 ASSEMBLER CAMPER by GAGAN TRAN [facility] Intake Chief Complaint : ST Onset of Symptoms : today AM Temperature Core : 36.8 DegC(Converted to: 98.2 DegF) Limb Alert Question : No Peripheral Pulse Rate : 112 /min (HI) Systolic Blood Pressure : 132 mmHg Diastolic Blood Pressure : 64 mmHg NIBP Mean : 87 mmHg GAGAN TRAN [facility] - 05/22/2016 15:32 ASSEMBLER CAMPER General Info Languages : Montenegrin Is Patient Female and 13-50 no hysterectomy : No GAGAN TRAN [facility] - 05/22/2016 15:32 ASSEMBLER CAMPER Subjective Pain Symptoms : Yes GAGAN TRAN CMA - 05/22/2016 15:32 ASSEMBLER CAMPER Pain Scale Pain Scale Verbal 0-10 : Open GAGAN TRAN CMA - 05/22/2016 15:32 ASSEMBLER CAMPER Pain Pain Assessment Grid Pain 1 Location : Throat Laterality : Bilateral Time Pattern : Constant GAGAN TRAN [facility] - 05/22/2016 15:32 ASSEMBLER CAMPER Dependent Habits Exposure to Tobacco Smoke : Care provider denies smoking in home Smoking Status : Former smoker Tobacco 2A : Yes Tobacco Use/Currently Using : No Tobacco Use/Last 30 Days : No Tobacco Use/Last 12 months : No Tobacco Last Use/Year : 1969 GAGAN TRAN Eyal [facility] - 05/22/2016 15:32 ASSEMBLER CAMPER Caffeine Use Grid Caffeine Use : Current Type : Coffee, Soft drinks, Tea Frequency : Daily Amount : 1 cup CHELSEA GAGAN Birch [facility] - 05/22/2016 15:32 ASSEMBLER CAMPER Source: [facility] POWERCHART Document Id: [id number] ASSEMBLER CAMPER!37 MBLER CAMPER documented in this encounter Plan of Treatment Not on filedocumented as of this encounter Procedures Procedure Name Priority Date/Time Associated Diagnosis Comme nts RAPID STREP A Routine 05/22/2016 3:48 PM Results for this SCREEN ASSEMBLER CAMPER procedure are i n the results section. documented in this encounter Results Rapid Strep A Screen (05/22/2016 3:48 PM ASSEMBLER CAMPER) [facility] gist Method Time Signature HXRapid Strep POWERCHART Confirmation HXPre Negative for POWERCHART Group A Strep by culture. HXFinal Negative for POWERCHART Group A Strep by culture. Specimen (Source) Anatomical Collection Method Collection Time Re ceived Time Location / / Volume Laterality Throat 05/22/2016 3:48 PM ASSEMBLER CAMPER James Huffman P.A.-C., VANDANA LAB MICROBIOLOGY - GENER AL ORDERABLES Performing Organization Address City/State/ZIP Code Phon e Number POWERCHART documented in this encounter Visit Diagnoses Not on filedocumented in this encounter
--- OUTSIDE RECORDS SUMMARY | 2022-01-19 14:57 | XMS_ITS | Encounter Summary ---
:1935 Author Organization [facility] Address [address] [place] [address] Care Team Providers Name Role Phone Barbra Ryder M.D., Vinnie Vasquez Primary Care Provider Encounter Details Date Type Department Care Team Description 02/22/2018 Hospital Encounter Department of Vinnie Belle Mammogram Radiology in Jelani Ryder M.D. Breast Cancer [place], [place] [address] [place] [phone] Social History Tobacco Use Types Packs/Day Years Used Date Smoking Tobacco: Former Sex Assigned at Date Recorded Not on file documented as of this encounter Medications at Time of Discharge Medication Sig Dispensed Refills Start Date End Date cholecalciferol (VITAMIN Take 1,000 Units by 0 D3) 1,000 Unit capsule mouth daily. geriatric Take 1 tablet by 0 01/30/2015 [id number] tablet mouth daily. simvastatin (ZOCOR) 10 mg Take 10 mg by mouth 0 0 10/28/2014 tablet at bedtime. Vanicream-plasticized Apply 1 application 0 06/17 base 80-20 % cream with topically 3 (three) triamcinolone acetonide times a day. 40 mg/mL suspension raNITIdine (ZANTAC) 150 150 mg. 0 10/28/2014 0 07/23/2020 mg tablet documented as of this encounter Plan of Treatment Not on filedocumented as of this encounter Procedures Procedure Name Priority Date/Time Associated Comments Diagnosis BI BREAST SCREENING RAD - Routine 02/22/2018 10:48 Screening Res ults for BILATERAL WITH (most inpatients AM [employer] ARCHIT[employer] Mammogram Breast this procedure TOMOSYNTHESIS and all Cancer are in the outpatients) results section. documented in this encounter Results BI Breast Screening Bilateral with Tomosynthesis (02/22/2018 10:48 AM [employer]) Anatomical Region Laterality Modality Breast, Breast Imaging RST LOS, Breast Imaging ARZ LOS, [place] [address] Bilateral Mammography Imaging FLA LOS Specimen (Source) Anatomical Collection Method Collection Time Re ceived Time Location / / Volume Laterality 02/22/2018 11:35 AM [employer] Impressions 02/22/2018 11:37 AM [employer] IMPRESSION: ??Negative. RECOMMENDATION: ??Annual Screening Mammo gram ASSESSMENT: ??BI-RADS: 1: Negative. Narrative 02/22/2018 11:37 AM [employer] EXAM: ??BI BREAST SCREENING BILATERAL WITH TOMOSYNTHESIS Current study was evaluated with a Compu ter Aided Detection (CAD) system. INDICATION: ??Screening mammogram. COMPARISON: ??Prior exam(s) were availab le and reviewed for comparison. DENSITY: ??b. There are scattered areas of fibroglandular density. FINDINGS: ??No mammographic findings of malignancy. Procedure Note Kristopher Morris M.D. - 02/22/2018Fo rmatting of this note might be different [...] documented in this encounter Visit Diagnoses Diagnosis Screening Mammogram Breast Cancer documented in this encounter Care Teams Typecasting Machine Operator Relationship Specialty Start Date End Date Vinnie Belle Jr., M.D. PCP - General 09/25/16 02/24/[address] [place] [address] documented as of this encounter
--- OUTSIDE RECORDS SUMMARY | 2022-01-19 14:57 | XMS_ITS | Encounter Summary ---
:1935 Author Organization [facility] Address [address] [place] [address] Care Team Providers Name Role Phone Barbra Ryder M.D., Britney Vasquez Primary Care Provider Encounter Details Date Type Department Care Team Description 11/10/2016 Hospital Encounter HX [facility] ED Guido Rao M.D. [address] [place], [place] [phone] (Wo rk) Social History Tobacco Use Types Packs/Day Years Used Date Smoking Tobacco: Former Sex Assigned at Date Recorded Not on file documented as of this encounter Last Filed Vital Signs Vital Sign Reading Time Taken Comments Blood Pressure 157/70 11/10/2016 5:05 AM CDT Pulse 75 11/10/2016 5:05 AM CDT Temperature - - Respiratory Rate 18 11/10/2016 5:05 AM CDT Oxygen Saturation - - Inhaled Oxygen Concentration - - Weight 68 kg (149 lb 14.6 oz) 11/10/2016 4:00 AM CDT Height 171 cm (5' 7.32) 11/10/2016 5:05 AM CDT Body Mass Index 23.25 11/10/2016 4:00 AM CDT documented in this encounter Discharge Summaries Sangeetha Morales R.N. - 11/10/2016 5:14 AM CDT ED Depart Summary [facility] Emergency Department Clinical Discharge Summary PERSON INFORMATION Name KAROLINE NUÑEZ Age 80 Years 1935 12:00 AM Sex Female Language Malay PCP BRITNEY BALDWIN MD Marital Status Visit Id Visit Reason Rib/trunk pain-swelling; ABD PAIN Specialty Enc Type Emergency Med Service Emergency Medicine Referred by Track Group MAQN ED Discharge 11/10/2016 5:05 AM Tracking Id [id number] Checkout 11/10/2016 5:05 AM Checkin 11/10/2016 3:56 AM Acuity 3 -Urgent Dispo Type * Discharged to Home or Self Care Arrival 11/10/2016 3:56 AM Reg Status LOS 000 01:09 Address: [address] [place] [phone] Comment: PROVIDER INFORMATION Provider Role Provider Contact Time SANGEETHA MORALES PICTURES EDITOR Nurse 11/10/16 04:08 GUIDO RAO MD ED Provider 11/10/16 04:20 DIAGNOSIS Comment: PATIENT EDUCATION INFORMATION Instructions: CHEST WALL STRAIN Follow up: With: Address: When: BRITNEY BALDWIN [address] [place] [phone] Business (1) Within 3 - 5days [facility] P[facility] Document Id: [id number] Sangeetha Morales R.N. - 11/10/2016 5:14 AM CDT ED Discharge Instructions [address] [address] Name: KAROLINE NUÑEZ Date of : 1935 12:00 AM Visit Date: 11/10/2016 3:56 AM [facility] Number: [id number] Address: [address] [place] [phone] Primary Care Provider: BRITNEY BALDWIN MD IMPORTANT: [facility] in [place] would like to thank you for allowing us to assistyou with your healthcare needs. The following includes patient education materials and information regarding your injury/illness. Diagnosis: Follow-Up Instructions: With: Address: When: BRITNEY BALDWIN [address] [place] [id number] Business (1) Within 3 - 5days Your Upcoming Appointments: Date Time Location Provider No Appointments found Patient Education Materials: Chest Strain A strain of the chest is due to stretching and tearing of the muscle fibers between the ribs. This may occur as a result of severe coughing, strenuous lifting or twisting injuries of the upper back. This usually causes increased pain with movement or deep breathing. This may take a few days to a few weeks to heal. Home Care: ?? Rest. Avoid heavy lifting or strenuous exertion. Avoid any activity that causes pain. ?? If you have a severe cough, use a cough syrup such as Robitussin DM (containing dextromethorphan)unless another cough medicine was prescribed. ?? You may use acetaminophen (Tylenol) or ibuprofen (Motrin, Advil) to control pain, unless another medicine was prescribed. [ NOTE: If you have chronic liver or kidney disease or ever had a stomach ulcer or GI bleeding, talk with your doctor before using these medicines.] Follow Up with your doctor as directed. Get Prompt Medical Attention if any of the following occur: ?? A change in the type of pain: if it feels different, becomes more severe, lasts longer, or beginsto spread into your shoulder, arm, neck, jaw or back ?? Shortness of breath or increased pain with breathing ?? Cough with dark colored sputum (phlegm) or blood ?? Weakness, dizziness, or fainting ?? Fever of 100.4?F (38?C) or higher, or as directed by your healthcare provider ?? [id number] [place] [address]. All rights reserved. This information is not intended as a substitute for professional medical care. Always follow your healthcare professional's instructions. Consider Using Patient Online Services Patient Online [...] if you dont have one. Go to [email or web address] and click on Create Your Account. Then, follow the directions to complete the online form. Youll be asked for your [facility] number which you can find at the top of this document. ED Tests and Procedures: Order Status XR Ribs Left w/ PA Chest Ordered Discharge Prescriptions & Home Medications: Medication/Strength Dose Route Frequency Indications/Special Instructions/Comments/Notes triamcinolone topical (triamcinolone 0.1% topical cream) 1 tessie Topical two times a day prn ranitidine (ranitidine 150 mg oral tablet) 150 mg Oral once a day (at bedtime) simvastatin (simvastatin 10 mg oral tablet) 10 mg Oral once a day (at bedtime) raloxifene (raloxifene 60 mg oral tablet) 60 mg Oral once a day orphenadrine (orphenadrine 100 mg oral tablet, extended release) 100 mg Oral as needed aspirin (aspirin 81 mg oral delayed release tablet) 81 mg Oral once a day multivitamin with minerals (Centrum Silver Women's oral tablet) 1 tab(s) Oral once a day cholecalciferol (Vitamin D3 1000 intl units oral tablet) 1,000 IntU Oral once a day Attention: If you have any medications at home not on this list, DO NOT take them until you contact your provider for clarification. Give a copy of your medication list to your primary care provider. Update your medication list any time medications or doses are changed and carry your medication list at all times in case of emergency. IMPORTANT: We examined and treated you today on an emergency basis only. This was not a substitute for, or an effort to provide, complete medical care. In most cases, you must let your doctor check youagain. Tell your doctor about any new or lasting problems. We cannot recognize and treat all injuries or illnesses in one Emergency Department visit. If you had special tests, such as EKG's or X- rays, we will review them again within 24 hours. We will call you if there are any new suggestions. Please follow the instructions above carefully. If you are being transferred to another facility, your follow up plan of care will be determined by the receiving facility. If you are a patient that is being discharged from the Emergency Department after receiving narcotics or other medications that may impair your judgment you may be a risk to yourself or others if you operate a motor vehicle. We recommend that you arrange a ride home with a responsible libertarian. ISUDHA ALICE ROSE , or responsible libertarian have received this information and my questions have been answered. I have discussed any challenges I see with this plan with the nurse or physician. Patient Signature or Responsible Constitution Party/Relationship Date Time Provider Signature Date Time IMPORTANT: We examined and treated you today on an emergency basis only. This was not a substitute for, or an effort to provide, complete medical care. In most cases, you must let your doctor check youagain. Tell your doctor about any new or lasting problems. We cannot recognize and treat all injuries or illnesses in one Emergency Department visit. If you had special tests, such as EKG's or X- rays, we will review them again within 24 hours. We will call you if there are any new suggestions. Please follow the instructions above carefully. If you are being transferred to another facility, your follow up plan of care will be determined by the receiving facility. If you are a patient that is being discharged from the Emergency Department after receiving narcotics or other medications that may impair your judgment you may be a risk to yourself or others if you operate a motor vehicle. We recommend that you arrange a ride home with a responsible libertarian. SUDHA [place] ALICE ROSE , or responsible libertarian have received this information and my questions have been answered. I have discussed any challenges I see with this plan with the nurse or physician. Patient Signature or Responsible Constitution Party/Relationship Date Time Provider Signature Date Time This document has images extracted. Please consider using Mysafeplace for all your patient education needs. Source: [facility] POWERCHART Document Id: [id number] Sangeetha Morales R.N. - 11/10/2016 5:12 AM CDT ED Disposition Summary ED Disposition Summary Entered On: 11/10/2016 5:12 CDT Performed On: 11/10/2016 5:12 CDT by SANGEETHA MORALES RN ED Disposition Summary Present in Room During Exam/Procedure : Son Mode of Discharge : Ambulatory Transportation : Private vehicle Discharge From ED With : Home Med List Printed Discharge Instructions Given to Patient : Yes Patient Status at Discharge from ED : Improved 30 Minutes Critical Care : No SANGEETHA MORALES RN - 11/10/2016 5:12 CDT Source: Visitar Document Id: [id number] CDT!9 documented in this encounter Medications at Time of Discharge Medication Sig Dispensed Refills Start Date End Date cholecalciferol (VITAMIN Take 1,000 Units by 0 D3) 1,000 Unit capsule mouth daily. geriatric Take 1 tablet by 0 01/30/2015 [id number] tablet mouth daily. simvastatin (ZOCOR) 10 mg Take 10 mg by mouth 0 0 10/28/2014 tablet at bedtime. Vanicream-plasticized Apply 1 application 0 06/17 base 80-20 % cream with topically 3 (three) triamcinolone acetonide times a day. 40 mg/mL suspension raNITIdine (ZANTAC) 150 150 mg. 0 10/28/2014 0 07/23/2020 mg tablet documented as of this encounter ED Notes Sangeetha Morales R.N. - 11/10/2016 5:05 AM CDT ED Pain Assessment ED Pain Assessment Entered On: 11/10/2016 5:12 CDT Performed On: 11/10/2016 5:05 CDT by SANGEETHA MORALES RN Pain Assessment Pain Symptoms : Yes SANGEETHA MORALES RN - 11/10/2016 5:12 CDT Pain Scale Pain Scale Verbal 0-10 : Open SANGEETHA MORALES RN - 11/10/2016 5:12 CDT Pain Pain Assessment Grid Pain 1 Location : Rib Intensity : 6 SANGEETHA MORALES RN - 11/10/2016 5:12 CDT Source: [facility] Anywhere to Go Document Id: [id number] CDT!10 Guido Rao M.D. - 11/10/2016 4:33 AM CDT Rib/trunk pain-swelling Patient: KAROLINE NUÑEZ Age: 80 years Sex: Female : 1935 Author: GUIDO RAO MD Attachments: None Basic Information Additional information: Chief Complaint from Nursing Triage Note : Chief Complaint Description 11/10/2016 4:00 CDT Chief Complaint Description was reaching up in cupboard on thursday and sharp pain started left mid-rib cage. No matter what postion she moves in- it hurts. . History of Present Illness The patient presents with rib-trunk pain. The onset was 2 days ago. The course/duration of symptoms is constant. Location: left, anterior, lateral chest. Type of injury: pt was reaching up and felt a pop on her anterolateral chest wall with acute onset of pain. The character of symptoms is pain. The lo cation where the incident occurred was at home. The degree of pain is moderate. The degree of bleeding is none. There are exacerbating factors including movement and breathing. There are relieving factors including none and failed ibuprofen and Tylenol. Risk factors consist of age. Therapy today: none. Associated symptoms: denies shortness of breath. Additional history: none. Review of Systems Constitutional symptoms: Negative except as documented in HPI. Skin symptoms: Negative except as documented in HPI. ENMT symptoms: Negative except as documented in HPI. Respiratory symptoms: Negative except as documented in HPI. Cardiovascular symptoms: Negative except as documented in HPI. Gastrointestinal symptoms: Negative except as documented in HPI. Musculoskeletal symptoms: Negative except as documented in HPI. Neurologic symptoms: Negative except as documented in HPI. Additional review of systems information: All other systems reviewed and otherwise negative. Health Status Allergies: Allergic Reactions (Selected) Severity Not Documented Septra- No reactions were documented. Zinc acetate containing compounds- Rash.. Past Medical/ Family/ Social History Medical history: Active Hypertension (HTN) Essential NOS (401.9) Disease Gastroesophageal Reflux (GERD JAMEY) (530.81) Chronic Renal Failure Stage IV GFR 15-29 (585.4) Regurgitation Tricuspid NOS (397.0) Depression NOS (311) Resolved Body mass index (BMI) 70 or greater, adult (Z68.45): Resolved on 08/21/2016 at 80 years. Comments: 07/24/2016 CDT 9:13 CDT - SYSTEM, SYSTEM Rule activated problem due to BMI >=70 posted on 07/24 at 09:07 CDT. 08/21/2016 CDT 9:35 CDT - SYSTEM, SYSTEM Rule resolved problem due to BMI <40 posted on 08/21 at 09:29 CDT.. Surgical history: Cataract extraction ([id number]) on 07/24/2016 at 80 Years. Comments: 08/19/2016 14:50 - CHANO ANDERSON RN left eye Cholecystectomy ([id number]). Lumpectomy (2444063460). Appendectomy ([id number]). Colonoscopy ([id number]). Comments: 06/17/2016 10:03 - CHANO MO RN 2010 Mammogram ([id number]). Comments: 06/17/2016 10:03 - CHANO MO RN 2015 Tonsillectomy ([id number]). Bunionectomy ([id number]).. Family history: Myocardial infarction Son CVA - Cerebrovascular accident Brother Leukemia Mother () . Physical Examination Vital Signs: Vital Signs 11/10/2016 4:00 CDT Temperature Core 36.6 DegC Peripheral Pulse Rate 79 /min Respiratory Rate 20 /min Limb Alert Question No Systolic Blood Pressure 154 mmHg HI Diastolic Blood Pressure 76 mmHg Mean Arterial Pressure 102 mmHg BP Location Right upper , Measurements 11/10/2016 4:00 CDT Height 171 cm Dosing Weight 68.00 kg Actual Weight 68 kg Body Mass Index 23.26 kg/m2 . General: Alert, mild distress and pt appears uncomfortable and notes pain is worse with breathing, especially deep inspiration. Skin: Warm, intact, moist and no rash. Head: Normocephalic. Neck: Supple. Cardiovascular: Regular rate and rhythm. Chest wall: On exam: Left, anterior, middle, lateral, moderate, tenderness, reproduces complaint. Gastrointestinal: Soft, Nontender, Non distended and Normal bowel sounds. Psychiatric: Cooperative. Medical Decision Making Notes:family is very concerned she may have popped or broken a rib despite the absence of direct blow or significant mechanism of injury. Despite my attempts to reassure them that a radiograph is notnecessary they remain insistent that a fracture be ruled out with radiologic evaluation.. Impression and Plan Diagnosis strain chest wall Plan Condition: Stable. Disposition: Discharged: to home. 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 Patient was given the following educational materials: CHEST WALL STRAIN. Follow up with: BRITNEY BALDWIN Within 3 - 5 days. Counseled: Patient, Family, Regarding diagnosis, Regarding diagnostic results, Regarding treatment plan, Regarding prescription. Electronically Signed By: GUIDO RAO MD On: 11/10/2016 05:27 AM Modified by and Electronically Signed by: GUIDO RAO MD On: 11/10/2016 05:27 AM Source: [facility] [employer] Cloud SecurityCHART Document Id: [id number]} Sangeetha Morales R.N. - 11/10/2016 4:00 AM CDT ED Primary Assessment Document Has Been Updated ED Primary Assessment Entered On: 11/10/2016 4:08 CDT Performed On: 11/10/2016 4:00 CDT by SANGEETHA MORALES RN Reason For Visit (As Of: 11/10/2016 04:08:36 CDT) Problems(Active) Anemia Pers Hx (ICD-10-CM :Z86.2 ) Name of Problem: Anemia Pers Hx ; Recorder: CHANO MO RN; Confirmation: Confirmed ; Classification: Nursing ; Code: Z86.2 ; Contributor System: PowerChart ; LastUpdated: 06/17/2016 9:51 LIQUID WASTE TREATMENT PLANT OPERATOR ; Life Cycle Date: 06/17/2016 ; Life Cycle Status: Active ; ResponsibleProvider: CHANO MO RN; Vocabulary: ICD-10-CM Arthritis Inflammatory (ICD-10-CM :M06.4 ) Name of Problem: Arthritis Inflammatory ; Recorder: CHANO MO RN; Confirmation: Confirmed ; Classification: Nursing ; Code: M06.4 ; Contributor System: PowerChart ; Last Updated: 06/17/2016 9:57 LIQUID WASTE TREATMENT PLANT OPERATOR ; Life Cycle Date: 06/17/2016 ; Life Cycle Status: Active ; Responsible Provider: CHANO MO RN; Vocabulary: ICD-10-CM Cerumen Impacted NOS (ICD-10-CM :H61.20 ) Name of Problem: Cerumen Impacted NOS ; Recorder: CHANO MO RN; Confirmation: Confirmed ; Classification: Nursing ; Code: H61.20 ; Contributor System: PowerChart ; Last Updated: 06/17/2016 9:56 LIQU[employer] WASTE TREATMENT PLANT OPERATOR ; Life Cycle Date: 06/17/2016 ; Life Cycle Status: Active; Responsible Provider: CHANO MO RN; Vocabulary: ICD-10-CM Cervical Disc Disorder With Myelopathy (ICD-10-CM :M50.00 ) Name of Problem: Cervical Disc Disorder With Myelopathy ; Recorder: CHANO MO RN; Confirmation: Confirmed ; Classification: Nursing ; Code: M50.00 ; Contributor System: PowerChart ; Last Updated: 06/17/2016 9:49 LIQUID WASTE TREATMENT PLANT OPERATOR ; Life Cycle Date: 10/2016 ; Life Cycle Status: Active ; Responsible Provider: CHANO MO RN; Vocabulary: ICD-10-CM Chronic Kidney Disease (CKD) Stage 3 GFR 30-59 (ICD-10-CM :N18.3 ) Name of Problem: Chronic Kidney Disease (CKD) Stage 3 GFR 30-59 ; Recorder: CHANO MO RN; Confirmation: Confirmed ; Classification: Nursing ; Code: N18.3 ; Contributor System: PowerChart ; Last Updated: 06/17/2016 9:56 LIQUID WASTE TREATMENT PLANT OPERATOR ; Life Cycle Date: 06/17/2016 ; Life Cycle Status: Active ; Responsible Provider: CHANO MO RN; Vocabulary: ICD-10-CM Chronic Renal Failure Stage IV GFR 15-29 (ICD-9-CM :585.4 ) Name of Problem: Chronic Renal Failure Stage IV GFR 15-29 ; Recorder: JORDAN PAZ MD; Confirmation: Confirmed ; Classification: Medical; Code: 585.4 ; Contributor System: PowerChart ; Last Updated: 10/19/2014 21:38 CDT ; Life Cycle Date: 10/19/2014 ; Life Cycle Status: Active ; Vocabulary: ICD-9-CM Cough NOS (ICD-10-CM :R05 ) Name of Problem: Cough NOS ; Recorder: CHANO MO RN; Confirmation: Confirmed ; Classification: Nursing ; Code: R05 ; Contributor System: PowerChart ; Last Updated: 06/17/2016 9:54 LIQUID WASTE TREATMENT PLANT OPERATOR ; Life Cycle Date: 06/17/2016 ; Life Cycle Status: Active ; Responsible Provider: CHANO MO RN; Vocabulary: ICD-10-CM Depression NOS (ICD-9-CM :311 ) Name of Problem: Depression NOS ; Recorder: JORDAN PAZ MD; Confirmation: Confirmed ; Classification: Medical ; Code: 311 ; Contributor System: PowerChart ; Last Updated: 10/19/2014 21:39 CDT ; Life Cycle Date: 10/19/2014 ; Life Cycle Status: Active ; Vocabulary: ICD-9-CM Disease Gastroesophageal Reflux (GERD JAMEY) (ICD-9-CM :530.81 ) Name of Problem: Disease Gastroesophageal Reflux (GERD JAMEY) ; Recorder: JORDAN PAZ MD; Confirmation: Confirmed ; Classification: Medical ; Code: 530.81 ; Contributor System: PowerChart ; Last Updated: 10/19/2014 21:37 CDT ; Life Cycle Date: 10/19/2014 ; Life Cycle Status: Active ; Vocabulary: ICD-9-CM Hearing Disorder NOS (ICD-10-CM :H93.8X9 ) Name of Problem: Hearing Disorder NOS ; Recorder: CHANO MO RN; Confirmation: Confirmed ; Classification: Nursing ; Code: H93.8X9 ; Contributor System: PowerChart ; Last Updated: 06/17/2016 9:54 LIQUID WASTE TREATMENT PLANT OPERATOR ; Life Cycle Date: 06/17/2016 ; Life Cycle Status: Active ; Responsible Provider: CHANO MO RN; Vocabulary: ICD-10-CM Hyperlipidemia Mixed (ICD-10-CM :E78.2 ) Name of Problem: Hyperlipidemia Mixed ; Recorder: CHANO MO RN; Confirmation: Confirmed ; Classification: Nursing ; Code: E78.2 ; Contributor System: PowerChart ; Last Updated: 06/17/2016 9:56 LIQUID WASTE TREATMENT PLANT OPERATOR ; Life Cycle Date: 06/17/2016 ; Life Cycle Status: Active ;Responsible Provider: MO, CHANO M RN; Vocabulary: ICD-10-CM Hypertension (HTN) Essential NOS (ICD-9-CM :401.9 ) Name of Problem: Hypertension (HTN) Essential NOS ; Recorder: JORDAN PAZ MD; Confirmation: Confirmed ; Classification: Medical ; Code: 401.9 ;Contributor System: PowerChart ; Last Updated: 10/19/2014 21:37 CDT ; Life Cycle Date: 10/19/2014 ; Life Cycle Status: Active ; Vocabulary: ICD-9-CM Lumbar Disc Disorder With Myelopathy (ICD-10-CM :M51.06 ) Name of Problem: Lumbar Disc Disorder WithMyelopathy ; Recorder: CHANO MO RN; Confirmation: Confirmed ; Classification: Nursing ; Code: M51.06 ; Contributor System: PowerChart ; Last Updated: 06/17/2016 9:50 LIQUID WASTE TREATMENT PLANT OPERATOR ; Life Cycle Date: 06/17/2016 ; Life Cycle Status: Active ; Responsible Provider: CHANO MO RN; Vocabulary: ICD-10-CM Osteoporosis NOS (ICD-10-CM :M81.0 ) Name of Problem: Osteoporosis NOS ; Recorder: CHANO MO RN; Confirmation: Confirmed ; Classification: Nursing ; Code: M81.0 ; Contributor System: PowerChart ; Last Updated: 06/17/2016 9:51 LIQUID WASTE TREATMENT PLANT OPERATOR ; Life Cycle Date: 06/17/2016 ; Life Cycle Status: Active ; Responsible Provider: CHANO MO RN; Vocabulary: ICD-10-CM Pain Back NOS (ICD-10-CM :M54.9 ) Name of Problem: Pain Back NOS ; Recorder: CHANO MO RN; Confirmation: Confirmed ; Classification: Nursing ; Code: M54.9 ; Contributor System: PowerChart ; Last Updated: 06/17/2016 9:55 LIQUID WASTE TREATMENT PLANT OPERATOR ; Life Cycle Date: 06/17/2016 ; Life Cycle Status: Active ; Responsible Provider: CHANO MO RN; Vocabulary: ICD-10-CM Pain Musculoskeletal NOS (ICD-10-CM :M79.1 ) Name of Problem: Pain Musculoskeletal NOS ; Recorder: CHANO MO RN; Confirmation: Confirmed ; Classification: Nursing ; Code: M79.1 ; Contributor System: PowerChart ; Last Updated: 06/17/2016 9:54 LIQUID WASTE TREATMENT PLANT OPERATOR ; Life Cycle Date: 06/17/2016 ; Life Cycle Status: Active ; Responsible Provider: MO, CHANO M RN; Vocabulary: ICD-10-CM Rash NOS (ICD-10-CM :R21 ) Name of Problem: Rash NOS ; Recorder: CHANO MO RN; Confirmation: Confirmed ; Classification: Nursing ; Code: R21 ; Contributor System: PowerChart ; Last Updated: 06/17/2016 9:57 LIQUID WASTE TREATMENT PLANT OPERATOR ; Life Cycle Date: 06/17/2016 ; Life Cycle Status: Active ; Responsible Provider: CHANO MO RN; Vocabulary: ICD-10-CM 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 ) Name of Problem: Regurgitation Tricuspid NOS ; Recorder: JODRAN PAZ MD; Confirmation: Confirmed ; Classification: Medical ; Code: 397.0 ; Contributor System: PowerChart ; Last Updated: 10/19/2014 21:38 CDT ; Life Cycle Date: 10/19/2014 ; Life CycleStatus: Active ; Vocabulary: ICD-9-CM Sclerosis Aortic Valve (ICD-10-CM :I35.8 ) Name of Problem: Sclerosis Aortic Valve ; Recorder: CHANO MO RN; Confirmation: Confirmed ; Classification: Nursing ; Code: I35.8 ; Contributor System: PowerChart ; Last Updated: 06/17/2016 9:52 LIQUID WASTE TREATMENT PLANT OPERATOR ; Life Cycle Date: 06/17/2016 ; Life Cycle Status: Active ; Responsible Provider: CHANO MO RN; Vocabulary: ICD-10-CM Venous Disease (ICD-10-CM :I87.9 ) Name of Problem: Venous Disease ; Recorder: CHANO MO RN; Confirmation: Confirmed ; Classification: Nursing ; Code: I87.9 ; Contributor System: PowerChart ; LastUpdated: 06/17/2016 9:53 LIQUID WASTE TREATMENT PLANT OPERATOR ; Life Cycle Date: 06/17/2016 ; Life Cycle Status: Active ; ResponsibleProvider: CHANO MO RN; Vocabulary: ICD-10-CM Diagnoses(Active) Rib/trunk pain-swelling Date: 11/10/2016 ; Diagnosis Type: Reason For Visit ; Confirmation: Complaint of ; Clinical Dx: Rib/trunk pain-swelling ; Classification: Medical ; Clinical Service: Emergency medicine ; Code: PNED ; Probability: 0 ; Diagnosis Code: [id number] Triage Chief Complaint Description : was reaching up in cupboard on thursday and sharp pain started left mid-rib cage. No matter what postion she moves in- it hurts. Information Given By : Patient, Son Present in Room During Exam/Procedure : Son Mode of Arrival ED : Private vehicle Track : Medical Languages : Malay Patient Informed of Triage Location : Emergency department Vital Signs Assessed : Yes Treatments Prior to Arrival : None Is Patient Female and 13-50 no hysterectomy : No SANGEETHA MORALES DEONNA 11/10/2016 4:00 CDT Vital Signs Temperature Core : 36.6 DegC(Converted to: 97.9 DegF) Limb Alert Question : No Peripheral Pulse Rate : 79 /min Respiratory Rate : 20 /min Systolic Blood Pressure : 154 mmHg (HI) Diastolic Blood Pressure : 76 mmHg NIBP Mean : 102 mmHg BP Location : Right upper extremity Oxygen Therapy : Room air Height : 171 cm(Converted to: 5 ft 7 inch(es)) Actual Weight : 68 kg Actual Weight Conversion to Pounds : 149.6 lb Body Mass Index : 23.26 kg/m2 CARMENSANGEETHA RN 11/10/2016 4:00 CDT Pain Assessment Pain Symptoms : Yes SANGEETHA MORALES RN 11/10/2016 4:00 CDT Pain Scale Pain Scale Verbal 0-10 : Open CARMENSANGEETHA RN 11/10/2016 4:00 CDT Pain Pain Assessment Grid Pain 1 Location : Rib Laterality : Left Intensity : 8 Onset : Sudden (Comment: Thursday [CARMENSANGEETHA RN 11/10/2016 4:00 CDT] ) Quality : Sharp Aggravating Factors : Movement CARMENSANGEETHA RN 11/10/2016 4:00 CDT Comfort Measures Comfort Measures Grid Relaxation : Yes CARMENSANGEETHA RN 11/10/2016 4:00 CDT JOANA JOANA Level 1 : No JOANA Level 2 : No JOANA Level 3 : Many Vital Signs JOANA : No CARMENSANGEETHA RN 11/10/2016 4:00 CDT DCP GENERIC CODE Tracking Acuity : 3 -Urgent Tracking Group : MAQN ED CARMEN SANGEETHA YING 11/10/2016 4:00 CDT Allergy Latex Reaction : No Latex Hives/Itch : No Latex Congestion/Eye Irr/Breathing : No Latex Symptom Progression : No Latex Previous Test : No SANGEETHA MORALES RN 11/10/2016 4:00 CDT (As Of: 11/10/2016 04:08:37 CDT) Allergies (Active) Septra Estimated Onset Date: Unspecified ; Created By: STEFANIE BALDWIN MD; Reaction Status: Active ; Category: Drug ; Substance: Septra ; Type: Allergy ; Updated By: STEFANIE BALDWIN MD; Reviewed Date: 11/10/2016 4:06 CDT zinc acetate containing compounds Estimated Onset Date: Unspecified ; Reactions: rash ; Created By: GAGAN TRAN STAFFING CLERK; Reaction Status: Active ; Category: Drug ; Substance: zinc acetate containing compounds ; Type: Allergy ; Updated By: GAGAN TRAN STAFFING CLERK; Reviewed Date: 11/10/2016 4:06 CDT ID Screen Drug Resistant Organism : No Travel Within Last 21 Days : No Contact with someone with Ebola : No SANGEETHA MORALES RN - 11/10/2016 4:00 CDT TB Symptoms Grid Bloody Sputum : No Fatigue : No Fever : No Loss of Appetite : No Night Sweats : No Persistent Cough Greater Than 3 Weeks : No Weight Loss : No SANGEETHA MORALES RN - 11/10/2016 4:00 CDT Alcohol and Drug Use : No Employee of Institutional Living Environment : No Health Care Employee : No History of Exposure to TB : No History of Positive Chest X-Ray for TB : No History of Positive TB Skin Test : No Homeless : No Known Immunosuppression : No Recent Immigrant : No Resident of Institutional Living Environment : No SANGEETHA MORALES RN - 11/10/2016 4:00 CDT Immunizations Immunizations Current : Yes Last Tetanus : Unknown SANGEETHA MORALES RN - 11/10/2016 4:00 CDT Respiratory Airway : Patent Respirations : Unlabored, Other: pain with deep breathing or movement Respiratory Pattern : Regular Oxygen Therapy : Room air SANGEETHA MORALES RN - 11/10/2016 4:00 CDT Cardiovascular Heart Rhythm : Regular Skin Color : Normal for ethnicity Skin Description : Dry Skin Temperature : Warm SANGEETHA MORALES RN - 11/10/2016 4:00 CDT Neurological Last Well Time Known : Not applicable Level of Consciousness : Alert Orientation : Oriented x 3 Characteristics of Speech : Appropriate for age Neuro Patient Stated Symptoms : None Swallowing Difficulty/Aspiration Risk : None SANGEETHA MORALES RN - 11/10/2016 4:00 CDT ED Psychosocial Affect/Behavior : Calm, Cooperative, Appropriate Domestic Abuse Concerns : None Behavioral Health Screen/Safety Assmt : No Emotional Support Available : Yes ED Psychosocial Deviation : son SANGEETHA MORALES RN - 11/10/2016 4:00 CDT Gastrointestinal Nutrition ED : Adequate SANGEETHA MORALES RN - 11/10/2016 4:00 CDT /OB Assessment Note : 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 SANGEETHA MORALES RN - 11/10/2016 4:00 CDT Musculoskeletal Fall Prevention Education Provided : SANGEETHA MALDONADO RN - 11/10/2016 4:00 CDT Social Habits Exposure to Tobacco Smoke : Care provider denies smoking in home Smoking Status : Former smoker Tobacco 2A : Yes Tobacco Use/Currently Using : No Tobacco Use/Last 30 Days : No Tobacco Use/Last 12 months : No Tobacco Last Use/Year : 1968 SANGEETHA MORALES RN - 11/10/2016 4:00 CDT Source: Visitar Document Id: [id number] CDT!119 documented in this encounter Miscellaneous Notes Miscellaneous - Sangeetha Morales R.N. - 11/10/2016 5:05 AM CDT Valuables/Belongings Valuables/Belongings Entered On: 11/10/2016 5:13 CDT Performed On: 11/10/2016 5:05 CDT by SANGEETHA MORALES RN Valuables/Belongings Room Orientation/Facility Policy Reviewed : Yes Belongings Sent Home With : [facility] has all belongings Home Medication Disposition : None brought in with patient SANGEETHA MORALES RN - 11/10/2016 5:13 CDT Source: [employer] Document Id: [id number] CDT!5 Miscellaneous - Sangeetha Morales R.N. - 11/10/2016 5:05 AM CDT Discharge Vital Signs Form Discharge Vital Signs Form Entered On: 11/10/2016 5:14 CDT Performed On: 11/10/2016 5:05 CDT by SANGEETHA MORALES RN Vital Signs Limb Alert Question : No Peripheral Pulse Rate : 75 /min Respiratory Rate : 18 /min Systolic Blood Pressure : 157 mmHg (HI) Diastolic Blood Pressure : 70 mmHg NIBP Mean : 99 mmHg BP Location : Left upper extremity SpO2 : 100 % Height : 171 cm(Converted to: 5 ft 7 inch(es)) SANGEETHA MORALES RN - 11/10/2016 5:13 CDT Source: [employer] Document Id: [id number] CDT!11 Miscellaneous - Conversion, Historical Provider Ser - 11/10/2016 5:05 AM CDT Coding Summary-Paper Based CODING DATE: 11/19/2016 FINAL [facility] STATUS: * Discharged to Home or Self Care PAYOR: Medicare ADMIT DX: R07.81 Pleurodynia REASON FOR VISIT DX: R07.81 Pleurodynia FINAL DX: PRINCIPAL: S29.011A Strain of muscle and tendon of front wall of thorax, initial encounter SECONDARY: 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 However, the narrative phrase printed from the coding software may appear abbreviated, or result in slightly different terminology. Coded By: CHANO VERA Date Saved: 11/19/2016 08:40 am Source: Visitar Document Id: [id number] documented in this encounter Plan of Treatment Not on filedocumented as of this encounter Procedures Procedure Name Priority Date/Time Associated Comments Diagnosis DX RIBS LEFT 2 VIEWS Routine 11/10/2016 4:44 Resu lts for this WITH CHEST AM CDT procedure are i n POSTEROANTERIOR 1 VIEW the r esults section. documented in this encounter Results DX Ribs Left 2 Views with Chest Posteroanterior 1 View (11/10/2016 4:44 AM CDT) Anatomical Region Laterality Modality Ribs, Chest Left Radiographic Imaging Specimen (Source) Anatomical Collection Method Collection Time Re ceived Time Location / / Volume Laterality 11/10/2016 4:44 AM CDT Addenda Addendum by Provider, Kelechi Rosario 11/10/2016 4:44 AM CDT RAD^^^MA XR Ribs Left w/ PA Chest 11/10/2016 04:44:22 XR Ribs Left w/ PA Chest Addendum by Provider, Kelechi Rosario o n 11/10/2016 4:44 AM CDT RAD^^^MA XR Ribs Left w/ PA Chest 11/10/2016 04:44:22 XR Ribs Left w/ PA Chest Impressions 11/10/2016 6:51 AM CDT Hiatal hernia. Intact LEFT ribs. No acute cardiopulmonary process noted. Narrative 11/10/2016 6:51 AM CDT EXAM: XR Ribs Left w/ PA Chest INDICATION: rib pain COMPARISON: Chest x-ray 01/06/2016 FINDINGS: The heart is normal in size. T here is a hiatal hernia behind the heart. There are calcified lymph nod es in the LEFT hilum. The lungs are clear. The LEFT ribs are intac t. Procedure Note Nick Mercado M.D. / Provider, Lucia watson M.D. - 01/15/2017 EXAM: XR Ribs Left w/ PA Chest INDICATION: rib pain COMPARISON: Chest x-ray 01/06/2016 FINDINGS: The heart is normal in size. T here is a hiatal hernia behind the heart. There are calcified lymph nod es in the LEFT hilum. The lungs are clear. The LEFT ribs are intac t. IMPRESSION: Hiatal hernia. Intact LEFT r ibs. No acute cardiopulmonary process noted. Jordan Bailey R.T.(R)(CT), R.T.(R) IMG DIAGNOSTIC YAS GING PROCEDURES documented in this encounter Visit Diagnoses Not on filedocumented in this encounter Care Teams Landscape Architecture Teacher Relationship Specialty Start Date End Date Britney Baldwin Jr., M.D. PCP - General 09/25/16 02/24/[address] [place] [address] documented as of this encounter
--- OUTSIDE RECORDS SUMMARY | 2022-01-19 14:57 | XMS_ITS | Encounter Summary ---
:1935 Author Organization [facility] Address [address] [place] [address] Care Team Providers Name Role Phone Unavailable Primary Care Provider Unavailable Reason for Visit Outpatient (Routine) - Modified Order Specialty Diagnoses / Procedures Referred By Contact Refer red To Contact Diagnoses Screening Mammogram Average Risk Patient Lizbeth Moe APRN, [facility] Region Procedures BI Breast Screening Bilateral with Tomosynthesis BI Breast Screening Bilateral C.N.P., M.S.N. [address] [place] [address] Referral ID Status Reason Start Date Expiration Date Visits V isits Requested Authorized [id number] Modified 02/09/2020 02/08/2021 1 1 Order Encounter Details Date Type Department Care Team Description 03/22/2020 Hospital Encounter Department of Lizbeth Moe ng Mammogram Radiology in Jelani Terrell APRN, [facility] Ris k Patient [place], [place] C.N.P., M.S.N. [address] [place] [phone] Social History Tobacco Use Types Packs/Day Years Used Date Smoking Tobacco: Former Cigarettes 0 Smokeless Tobacco: Never Sex Assigned at Date Recorded Not on file documented as of this encounter Medications at Time of Discharge Medication Sig Dispensed Refills Start Date End Date cholecalciferol (VITAMIN Take 1,000 Units by 0 D3) 1,000 Unit capsule mouth daily. geriatric Take 1 tablet by 0 01/30/2015 [id number]-amom-ehrn tablet mouth daily. raloxifene (EVISTA) 60 mg Take 60 mg by mouth 0 1 04/25/2018 tablet at bedtime. simvastatin (ZOCOR) 10 mg Take 10 mg by mouth 0 0 10/28/2014 tablet at bedtime. Vanicream-plasticized Apply 1 application 0 06/17 base 80-20 % cream with topically 3 (three) triamcinolone acetonide times a day. 40 mg/mL suspension ibuprofen (ADVIL,MOTRIN) Take 400 mg by mouth 0 07/23/2020 400 mg tablet as needed for pain. raNITIdine (ZANTAC) 150 150 mg. 0 10/28/2014 0 07/23/2020 mg tablet documented as of this encounter Plan of Treatment Not on filedocumented as of this encounter Procedures Procedure Name Priority Date/Time Associated Comments Diagnosis BI BREAST SCREENING RAD - Routine 03/22/2020 9:45 Screening Resu lts for BILATERAL WITH (most inpatients AM RISK ADJUSTMENT SPECIALIST Mammogram Average this procedure TOMOSYNTHESIS and all Risk Patient are in the outpatients) results section. documented in this encounter Results BI Breast Screening Bilateral with Tomosynthesis (03/22/2020 9:45 AM RISK ADJUSTMENT SPECIALIST) Anatomical Region Laterality Modality Breast, Breast Imaging RST LOS, Breast Imaging ARZ LOS, Carmen st Bilateral Mammography Imaging FLA LOS Specimen (Source) Anatomical Collection Method Collection Time Re ceived Time Location / / Volume Laterality 03/22/2020 1:14 PM RISK ADJUSTMENT SPECIALIST Impressions 03/22/2020 1:17 PM RISK ADJUSTMENT SPECIALIST Benign. RECOMMENDATION: ??Annual Screening Mammo gram ASSESSMENT: ??BI-RADS: 2: Benign. Narrative 03/22/2020 1:17 PM RISK ADJUSTMENT SPECIALIST EXAM: ??BI BREAST SCREENING BILATERAL WITH TOMOSYNTHESIS Current study was evaluated with a [employer] Aided Detection (CAD) system. INDICATION: ??Screening mammogram. COMPARISON: ??Prior exam(s) were availab le and reviewed for comparison. DENSITY: ??b. There are scattered areas of fibroglandular density. FINDINGS: ??No findings of malignancy. ? ?No significant change since prior exam. Procedure Note Itz Blanco M.D. - 03/22/2020Forma tting of this note might be different from the original. EXAM: BI BREAST SCREENING BILATERAL WITH TOMOSYNTHESIS Current study was evaluated with a Compu ter Aided Detection (CAD) system. INDICATION: Screening mammogram. COMPARISON: Prior exam(s) were available and reviewed for comparison. DENSITY: b. There are scattered areas of fibroglandular density. FINDINGS: No findings of malignancy. No significant change since prior exam. IMPRESSION: Benign. RECOMMENDATION: Annual Screening Mammogr am ASSESSMENT: BI-RADS: 2: Benign. Tanya Zhang APRN.N.Sonny., M.S.N. IMG BI PROCEDURES documented in this encounter Visit Diagnoses Diagnosis Screening Mammogram Average Risk Patient documented in this encounter
--- OUTSIDE RECORDS SUMMARY | 2022-01-19 14:57 | XMS_ITS | Clinical Summary ---
:1935 Author Organization [facility] Address [address] [place] [address] Care Team Providers Name Role Phone Unavailable Primary Care Provider Unavailable Source Comments You are receiving this document as you are listed as the primary care provider,follow-up provider, or the patient has been referred to you for consultation.This is in compliance with the Medicare and Medicaid EHR Incentive Program,which states Providers who transition their patient to another setting of careor provider of care or refers their patient to another provider of care shouldprovide summarycare record for each transition of care or referral. [employer] Social History Tobacco Use Types Packs/Day Years Used Date Smoking Tobacco: Never Assessed Sex Assigned at Date Recorded Not on file Plan of Treatment Health Maintenance Due Date Last Done Comments Medicare Annual Wellness Visit 1935 COVID-19 Vaccine (#1) 06/13/1936 DTaP/Tdap/Td (1 - Tdap) 12/15/1955 Zoster/Shingles (1 of 2) 1986 Pneumococcal 65+ Yrs (1 - PCV) 2001 Influenza (#1) 2021 HepA Aged Out No longer eligib le based on patient's age to complete this topic HepB Aged Out No longer eligib le based on patient's age to complete this topic Hib Aged Out No longer eligib le based on patient's age to complete this topic IPV (Polio) Aged Out No longer eligib le based on patient's age to complete this topic MCV4 Aged Out No longer eligib le based on patient's age to complete this topic Insurance Payer Benefit Plan / Subscriber ID Effective Dates Phone Addre ss Type Group MEDICARE MEDICARE [id number] 2017-Prabhakar [phone] ATTN CLA IMS Medicare t 90 [address] [place] [address] BCBS BCBS [place] [id number] 2017-Prabhakar [phone] [address] [address] Medicare BLUE t [address] [place] [address] (Home) [place] [address]
--- OUTSIDE RECORDS SUMMARY | 2022-01-19 14:57 | XMS_ITS | Encounter Summary ---
:1935 Author Organization [facility] Address [address] [place] [address] Care Team Providers Name Role Phone Barbra Ryder M.D., Vinnie Vasquez Primary Care Provider Encounter Details Date Type Department Care Team Description 02/18/2017 Hospital Encounter Department of Vinnie Belle Mammogram Radiology in Jelani Ryder M.D. Average Risk Patient [place], [place] [address] [place] [phone] Social History Tobacco Use Types Packs/Day Years Used Date Smoking Tobacco: Former Sex Assigned at Date Recorded Not on file documented as of this encounter Medications at Time of Discharge Medication Sig Dispensed Refills Start Date End Date cholecalciferol (VITAMIN Take 1,000 Units by 0 D3) 1,000 Unit capsule mouth daily. geriatric Take 1 tablet by 0 01/30/2015 bzxynkqg-cgry-wxjl tablet mouth daily. simvastatin (ZOCOR) 10 mg [...] Priority Date/Time Associated Comments Diagnosis BI BREAST RAD - Routine 02/18/2017 11:14 Screening Results fo r this SCREENING (most inpatients AM ABALONE DIVER Mammogram Average proced ure are in BILATERAL and all Risk Patient the results outpatients) section. documented in this encounter Results BI Breast Screening Bilateral (02/18/2017 11:14 AM ABALONE DIVER) Anatomical Region Laterality Modality Breast Bilateral Mammography Specimen (Source) Anatomical Collection Method Collection Time Re ceived Time Location / / Volume Laterality 02/18/2017 3:25 PM ABALONE DIVER Impressions 02/18/2017 3:27 PM ABALONE DIVER IMPRESSION: ??Negative. RECOMMENDATION: ??Annual Screening Mammo gram ASSESSMENT: ??BI-RADS: 1: Negative. Narrative 02/18/2017 3:27 PM ABALONE DIVER EXAM: ??BI BREAST SCREENING BILATERAL Current study was evaluated with a Compu ter Aided Detection (CAD) system. INDICATION: ??Screening mammogram. COMPARISON: ??Prior exams were available for comparison. DENSITY: ??b. There are scattered areas of fibroglandular density. FINDINGS: ??No mammographic findings of malignancy. Procedure Note Kristopher Morris M.D. - 02/18/2017Fo rmatting of this note might be different from the original. EXAM: BI BREAST SCREENING BILATERAL Current study was evaluated with a Compu ter Aided Detection (CAD) system. INDICATION: Screening mammogram. COMPARISON: Prior exams were available f or comparison. DENSITY: b. There are scattered areas of fibroglandular density. FINDINGS: No mammographic findings of ma lignancy. IMPRESSION: Negative. RECOMMENDATION: Annual Screening Mammogr am ASSESSMENT: BI-RADS: 1: Negative. Vinnie Belle Jr., M.D. IMG BI PROCEDURES documented in this encounter Visit Diagnoses Diagnosis Screening Mammogram Average Risk Patient documented in this encounter Care Teams Geographic Information Systems Manager Relationship Specialty Start Date End Date Vinnie Belle Jr., M.D. PCP - General 09/25/16 02/24/19 [address] [place] [address] documented as of this encounter
--- OUTSIDE RECORDS SUMMARY | 2022-01-19 14:57 | XMS_ITS | Encounter Summary ---
:1935 Author Organization [facility] Address [address] [place] [address] Care Team Providers Name Role Phone Unavailable Primary Care Provider Unavailable Reason for Referral Outpatient (Routine) - Closed Specialty Diagnoses / Procedures Referred By Contact Refer red To Contact Diagnoses Pain Chest Atypical Joleen Harry M.D. [address] [place] [phone] Referral ID Status Reason Start Date Expiration Visits Visits Date Requested Authorized [id number] Closed Continuity of 07/23/2020 07/23/2021 1 1 Care Reason for Visit Auth/Cert Specialty Diagnoses / Procedures Referred By Contact Refer red To Contact Diagnoses Presyncope Chest Pain Procedures Referral ID Status Reason Start Date Expiration Date Visits Requ ested Visits Authorized [id number] 1 1 Encounter Details Date Type Department Care Team Description 07/23/2020 Hospital Encounter [facility] Becca Zepeda M.D. [address] [place] [phone] Presyncope (Primary Dx); [facility] Sapphire De La Cruz M.D. [address] [place] [phone] Pain Chest Atypical [facility] Joleen Harry M.D. [address] [place] [phone] Floor [address] [place] [phone] Social History Tobacco Use Types Packs/Day Years [...] Mass Index 22.58 07/23/2020 5:15 AM CDT documented in this encounter Discharge Summaries Joleen Harry M.D. - 07/23/2020 5:36 PM CDT Discharge Summary Date of Admission: 07/23/2020 Admitting Physician: Daryl Zepeda M.D. Date of Discharge: 07/23/2020 Discharging Physician:Joleen Harry M.D. PRIMARY DISCHARGE DIAGNOSES Atypical chest pain Bilateral shoulder pain Left bundle branch block, unclear when this came about. SECONDARY DISCHARGE DIAGNOSES Hypertension Hyperlipidemia HOSPITAL COURSE Karoline Nuñez is a 84 y.o. 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 Patient denied shortness of breath, cough, URI like symptoms. She had otherwise been feeling well. She had workup in the emergency department that included an EKG that showed a left bundle branch block which was new compared to her last EKG that we have in our system from 2016. She was given aspirin 324 mg and transferred to [place] for further workup. Following transfer to [place] cardiology was consulted. She also had an echocardiogram during hospital admission which did not show any significant abnormalities. EKG showed left bundle branch block which is new since 2016 but unsure when it came about. Cardiology did not recommend any additional Workup and that her symptoms were atypical from a cardiac standpoint. She had orthostatic vital signs which were normal. Doppler ultrasound of the lower extremity was negative and CT chest without showed no acute abnormality to explain her symptoms. CT angiogram of the chest discussed with patient and her daughter however given her chronic kidney disease the preferred not to pursue that. Patient also denied any risk factors for pulmonary embolism suggest recent travel, prior history or immobility. She did reports that she is quite active. She denies any neck pain any trauma injuries. She denies any heavy lifting or pushing. Did report some muscular strain sometime back recently. She denies any shoulder trauma injuries. She had good range of motion in her shoulders on exam. Overall patient did well she did not have any recurrence of her symptoms. Discussed with patient andher daughter they felt she was comfortable going home with close outpatient follow-up with a primarycare provider. Discussed that she should seek immediate medical care if she had recurrence of her symptoms, or felt unwell. Consults: IP CONSULT TO CARDIOLOGY DISCHARGE EXAMINATION General: Alert and oriented. No acute distress. HEENT: NCAT. No scleral icterus. Oral mucosa moist. Neck: Supple. Cardiovascular: Normal S1/S2. Lungs: Clear to auscultation bilaterally. Abdomen: Soft, NT, ND, +BS. Extremities: No BLE edema. Neurological: Grossly intact. Sensation is intact. No chest wall tenderness on palpation. Good range of motion in her upper extremities including shoulder. VITAL SIGNS BP 149/70 (BP Location: Right arm;Upper, Patient Position: Semi-recumbent) Pulse 81 Temp 36.5 ??C Resp 18 Ht 170.2 cm Wt 65.4 kg SpO2 95% BMI 22.58 kg/m?? Discharge Condition: Stable. Discharge Medications: Discharge Medications TAKE these medications acetaminophen 500 mg tablet Commonly known as: TYLENOL Take 500 mg by mouth every 6 (six) hours as needed for pain. amLODIPine 2.5 mg tablet Commonly known as: NORVASC Take 1.25 mg by mouth daily. cholecalciferol 25 mcg (1,000 Unit) capsule Commonly known as: VITAMIN D3 Take 1,000 Units by mouth daily. geriatric llkxksqa-ocqu-ejhr tablet Take 1 tablet by mouth daily. raloxifene 60 mg tablet Commonly known as: EVISTA Take 60 mg by mouth at bedtime. simvastatin 10 mg tablet Commonly known as: ZOCOR Take 10 mg by mouth at bedtime. Vanicream-plasticized base 80-20 % cream with triamcinolone acetonide 40 mg/mL suspension Apply 1 application topically 3 (three) times a day. Procedures during admission:none. DIAGNOSTICS Imaging: CT Chest without IV Contrast Final Result 1. Moderate size hiatal hernia with compressive atelectasis of the adjacent lower lobes. No evidence of acute consolidative pneumonia. 2. Evidence of prior granulomatous disease. US Lower Extremity Veins Bilateral Final Result Negative for Acute DVT. Echo Transthoracic (TTE) Final Result Bedside echo performed. LEFT VENTRICLE: Normal left ventricular chamber size. Normal left ventricular wall thickness. Calculated 2-D biplane volumetric left ventricular ejection fraction 56 %. 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 No regional wall motion abnormalities. Grade 1/3 left ventricular diastolic dysfunction, consistent with low to normal left ventricular filling pressure. RIGHT VENTRICLE: Normal right ventricular chamber size. Normal right ventricular systolic function. Estimated right ventricular systolic pressure 45 mmHg assuming right atrial pressure of 5 mmHg. ATRIA: Normal left atrial size. Left atrial volume index 32 ml/m^2. Normal right atrial size. CARDIAC VALVES: Trileaflet aortic valve. Mildly sclerotic aortic valve. Trivial aortic valve stenosis. Aortic valve systolic mean Doppler gradient 9 mmHg. Aortic valve area by Doppler 1.75 cm^2. No aortic valve regurgitation. Normal mitral valve. Mild mitral valve regurgitation. Pulmonary valve not well visualized. Trivial pulmonary valve regurgitation. Normal tricuspid valve. Mild-moderate tricuspid valve regurgitation. OTHER ECHO FINDINGS: Normal inferior vena cava size with normal inspiratory collapse (>50%). Ascending aorta not well visualized. Abdominal aorta incompletely visualized. Normal abdominal aorta Doppler flow pattern. No atrial level shunt by color flow imaging. No intracardiac mass or thrombus, but the left atrial appendage cannot be visualized adequately with transthoracic echo to exclude thrombus in this location. No pericardial effusion. For the complete report, see the Order-Level Documents. Labs: Results from last 7 days Lab Units 07/22/20 2110 WBC x10(9)/L 4.8 HEMOGLOBIN g/dL 12.7 HEMATOCRIT % 38.3 PLATELETS AUTO x10(9)/L 208 Results from last 7 days Lab Units 07/23/20 1121 07/22/20 2110 SODIUM P mmol/L 141 139 CHLORIDE P mmol/L 107 105 BUN P mg/dL 15 19 CREATININE P mg/dL 1.13* 1.31* CALCIUM P mg/dL 9.9 9.4 Disposition: home . Pending Labs at Discharge: Pending Labs None Follow-up Appointments: Follow-up with PCP. All diagnostic testing ,test results ,plan of care and follow up was discussed with the patient.Questions answered to the patients satisfaction. Addendum: Patient did report some left posterior chest wall pain with movement, feels like a muscle pull. She had no other cardiac symptoms . No skin rash. Pain resolved. We walked the hallway and she felt well . No recurrence of symptoms. EKG unchanged . Feels comfortable discharging. Will stay with family for a few days with family . Discussed with pt and daughter seeking medical care with recurrent symptoms ,worseing pain, SOB,diziness, lightheadedness or lack of resolution of pain with analgesic , change in character . Questions answered to their satisfaction Joleen Harry M.D. documented in this encounter Discharge Instructions AttachmentsThe following attachments cannot be sent through Care Everywhere.Deep Vein Thrombosis and Pulmonary Embolism ([place])documented in this encounter Medications at Time of Discharge Medication Sig Dispensed Refills Start Date End Date acetaminophen (TYLENOL) Take 500 mg by mouth 0 500 mg tablet every 6 (six) hours as needed for pain. amLODIPine (NORVASC) 2.5 Take 1.25 mg by mouth 0 07/20/2020 mg tablet daily. cholecalciferol (VITAMIN Take 1,000 Units by 0 D3) 1,000 Unit capsule mouth daily. geriatric Take 1 tablet by 0 01/30/2015 tnosnuyg-epir-vixg tablet mouth daily. raloxifene (EVISTA) 60 mg Take 60 mg by mouth 0 1 04/25/2018 tablet at bedtime. simvastatin (ZOCOR) 10 mg Take 10 mg by mouth 0 0 10/28/2014 tablet at bedtime. Vanicream-plasticized base Apply 1 application 0 06/17/2016 80-20 % cream with topically 3 (three) triamcinolone acetonide 40 times a day. mg/mL suspension documented as of this encounter H&P Notes Daryl Zepeda M.D. - 07/23/2020 6:00 AM CDT SUBJECTIVE HISTORY OF PRESENT ILLNESS Mrs. Nuñez is an 84-year-old lady who presented to the Emergency Department in [place] with complaints of feeling unwell. She had been to her daughter's house and had lunch, stayed late to watch the [place], then [place]. As she was getting ready for bed she was standing in the bathroom and suddenly felt unwell. She looked at herself in the mirror and thought she looked a bit pale. She had bilateral pain radiating into her arms from the shoulders, a bit of nausea without vomiting. Specifically not chest pain, but some discomfort across the upper back and into the arms, perhaps a bitto the jaw. This was present for about 30 minutes. She was not syncopal but felt definitely presyncopal as though she would be too weak to stand. She sat for a bit and her symptoms resolved. She discuss this with her daughter who came over and brought her to the Emergency Department. Mrs. Nuñez did not remember, but her daughter notes that she has had a couple of these episodes over the last coupleof years. They were not aware of the results of any specific workup. In the Emergency Department in [place] physical examination was unremarkable. Her symptoms had resolved prior to arrival. Laboratory work was relatively unremarkable. Troponins were negative. Chest x-ray similarly so. But her EKG appeared to show a new left bundle branch block. As a result, it was requested that she be transferred to [place] for further evaluation and possible echocardiogram. MEDICAL HISTORY Mrs. Nuñez' past medical history is remarkable for hypertension, mild hyperlipidemia, and nephrolithiasis. In fact, in 2015 she had an obstructed left ureter, developed a bad pyelonephritis, and had a nephrostomy tube for a period of time, but it would appear that kidney as followup ultrasoundsshowed it to be quite atrophic. The remaining right kidney has an exophytic cyst that remains unchanged. SURGICAL HISTORY Remarkable for distant appendectomy, cholecystectomy, tonsillectomy, breast lumpectomy, and cataractsurgery. FAMILY HISTORY Remarkable for her mother's leukemia. One son had heart disease. Brother had stroke. SOCIAL HISTORY She is a former smoker, having quit over 30 years ago. Mostly she shared a few cigarettes with her . She never carried any of her own. She resides independently in a townhouse in [place]. There are stairs to the basement that she uses on occasion. Does not find them to be an obstacle. She enjoys walks when the weather is nice. Denies chest pain, heaviness, tightness, or pressure under exertion. OBJECTIVE PHYSICAL EXAMINATION Vital Signs: Reveals stable signs without fever noted. HEENT: Examination is within normal limits. Neck: Supple without cervical adenopathy. Lungs: Clear to auscultation and percussion without rales, rhonchi, or wheezing. Cardiovascular: Heart is regular rate and rhythm with holosystolic murmur. No rub or gallop is noted. PMI is not displaced. Peripheral pulsations are bounding. Abdomen: Soft and nontender to palpation. Extremities: Within normal limits. No cyanosis, clubbing, or edema. DIAGNOSTICS Laboratory work from [place] remarkable for sodium and potassium of 139 and 4.3. Bicarb 27. BUN and creatinine 19 and 1.3. She is uninephric. Troponin was 11, followed by 9, followed by 10. COVID negative. CBC unremarkable. Chest x-ray with a moderate-sized hiatal hernia. Stable pulmonary nodule from 2016. Electrocardiogram reveals left bundle branch block with associated ST-T wave changes. There is an echocardiogram from 2015 that showed some calcification of the aortic valve and mild stenosis only, and trivial aortic insufficiency. An EF of 70% with mildly increased left ventricular thickness is noted. ASSESSMENT / PLAN #1 Presyncopal episode Difficult to nail down symptomatology, but she seems quite clear that she is able to handle herself at home without difficulty. Climbs stairs, carries things up stairs, and goes for walks outside without much in the way of difficulty. The left bundle branch block may be new relatively. The most recentEKG on our side is 2015. PLAN: The patient plan will be to admit to hospital and monitor on telemetry, ambulate under observation, and echocardiogram in the morning to assess the holosystolic murmur and the aortic valve specifically, although with the strong peripheral pulsations it would suggest she does not have critical aortic stenosis at any rate. The patient will be placed on the [facility] Medical Team for the balance of her hospital stay. Initial hospitalization level 3. Greater than 75 minutes, greater than 50% of which encompassed by counseling, coordination of care, and review of all records. Daryl Zepeda M.D. CT CT Job ID: [id number] documented in this encounter Consult Notes Mukund Taylor M.D. - 07/23/2020 9:53 AM CDT CARDIOLOGY INPATIENT CONSULTATION NOTE Karoline Nuñez is seen with Dalia Christianson DNP. I evaluated and examined the patient, reviewed the labs and imaging studies, reviewed the medical/surgical/family/social history, and participated inthe formulation of a diagnostic and treatment plan. CHIEF COMPLAINT/REASON FOR VISIT Left bundle branch block, bilateral flank/thorax pain HISTORY OF PRESENT ILLNESS Karoline Nuñez is a 84 y.o. female who is here for evaluation of atypical lateral chest pains and neck pain. The patient has a history of hypertension, hyperlipidemia, CKD stage III-IV, andsolitary kidney. The patients states she developed bilateral flank/thorax pain and posterior nuchal pain. No chest pain. She went to the [place] ED where her troponins were 11 and 11. EKG revealed LBBB of indeterminate duration. PHYSICAL EXAMINATION VITAL SIGNS: Temperature: [36.5 ??C-37.4 ??C] 36.5 ??C Heart Rate: [73-86] 80 Resp Rate: [11-27] 18 Blood Pressure: (118-177)/(55-131) 149/70 SpO2: [95 %-99 %] 95 % Height: [170.2 cm] 170.2 cm Weight: [65.4 kg-66.8 kg] 65.4 kg BSA (Calculated - sq m): [1.76 sq meters] 1.76 sq meters BMI (Calculated): [22.6 kg/m??] 22.6 kg/m?? Pulse Rate: [75-85] 81 Body mass index is 22.58 kg/m??. Neck: JVP not elevated. Lungs: Clear to auscultation bilaterally. No rales. Heart: Regular rate and rhythm. No rubs or gallops. No significant murmurs. Abdomen: Soft, nontender. Extremities: No cyanosis. No edema in the lower extremities. ASSESSMENT / PLAN #1 Bilateral thorax and neck pain No evidence of acute coronary syndrome. Denies chest pain. Symptoms are atypical for myocardial ischemia. LVEF normal. No further cardiac evaluation at this time. #2 Hypertension Borderline elevated. Titrate medications to render her normotensive. #3 Left bundle branch block Duration unknown but new since 2016. Normal LVEF. Denies syncope/lightheadedness. No further evaluation warranted at this time. Total time spent with the patient was 17 minutes with greater than 50% spent in counseling and coordination of care. This time is in addition to the 75 minutes documented by my collaborator (listed above). Dalia Christianson APRN, C.N.P., D.N.P. - 07/23/2020 8:19 AM CDTAssociated Order(s): IP CONSULT TO CARDIOLOGY Images from the original note were not included. CARDIOLOGY INPATIENT CONSULTATION NOTE REQUESTING PROVIDER Joleen Harry M.D. PRIMARY PROVIDER Dr. Vinnie Belle PRIMARY CARDIOLOGY PROVIDER None CONSULTING Dalia Christianson APRN, DNP/ Dr. Mukund Taylor HISTORY OF PRESENT ILLNESS Karoline Nuñez is a 84 y.o. 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 Yesterday she had gone to her daughter's place to have dinner and see her grandchildren. She spent anice day there and had no problems. She got home and she was getting ready to go to bed about 0800 hours at night. She was standing in the bathroom she noticed when she looked in the mirror she looked more pale than normal and she had some discomfort in bilateral flank/thorax region with associated posterior nuchal pain as well. Also noted some bilateral hand tingling with that. Secondary to that andfarrukh was thinking that maybe something further would have been she decided to sit down in a chair. Asswaylon sat on the chair things did not seem to get worse but they did not seem to get better so she contacted her children. She does want them to be around with her case something should happen. When theycame the decided that she should go to the emergency room upon arrival to the emergency room troponins were negative as well as no acute ischemic changes on her EKG but a new left bundle branch block that has not been assessed since 2016. She was given a full-dose aspirin. No other current changes. Itwas felt that this should be evaluated by packaging sales representative and therefore were going to transfer her. Thefamily wished to go to [place] however [facility] did not have beds available so she was [facility]. At this point she still complain of some mild discomfort that seems to be worsened when she grabs her arms to her chest or left some back care presses on to the area. Otherwise she feels fine. Cardiology has been consulted. She adamantly denies any anterior chest discomfort or jaw discomfort. No nausea or vomiting. No shortness of breath. No presyncope or syncope sensation. PAST CARDIAC HISTORY/CV RISK FACTORS 1. Hypertension-Maintains on Norvasc 1.25mg daily 2. Dyslipidemia- Maintains on Zocor 10mg daily. 3. Left bundle-branch block (new since 2015) 4. Transient atrial fibrillation in setting of urosepsis 2014 PAST CARDIAC TESTING TTE 12/02/2011 at [facility] for murmur and edema (WT 146lb) Final Impression: 1. Normal left ventricular size and systolic function, estimated ejection fraction 60%. 2. Borderline increased left ventricular wall thickness. 3. Normal right ventricular size and systolic function. 4. Mild left atrial enlargement. 5. Aortic sclerosis with minimal stenosis. ??Mean systolic gradient 8 mm Hg. 6. Mild mitral regurgitation. 7. Moderate tricuspid regurgitation. ?? Estimated right ventricular systolic pressure 25 mm Hg plus right atrial pressure. REPEAT TTE 10/20/2014 for atrial fibrillation (HX of transient afib in setting of urosepsis) Final Impression: 1. Normal left ventricular size, mildly increased left ventricular thickness in a concentric pattern, and normal global and regional left ventricular systolic function with an estimated ejection fraction of 70%. 2. Normal right ventricular size and function. ?? 3. Trileaflet sclerotic and calcified aortic valve with mild aortic stenosis and trivial aortic insufficiency. ??The peak velocity is 2.2 m/s. ?? The mean gradient is 11 mm Hg, and the valve area is 2.0 cm?? . 4. Mild to moderate tricuspid insufficiency. 5. Normal pulmonary pressures with a peak right ventricular systolic pressure of 25 mm Hg plus the right atrial pressure, which is estimated to be normal based on inferior vena cava geometry. PAST MEDICAL HISTORY Patient Active Problem List Diagnosis ??? Arthritis Inflammatory (HCC) ??? Chronic Kidney Disease Stage 3 Glomerular Filtration Rate 30 To 59 (HCC) ??? Depressive Disorder ??? Chronic Kidney Disease Stage 4 Glomerular Filtration Rate 15-29 (HCC) ??? Hypertension NOS ??? Presyncope ?? Solitary kidney Past Medical History: Diagnosis Date ??? Chronic Kidney Disease NOS ??? Hyperlipidemia ??? Hypertension NOS ??? Osteoporosis PAST SURGICAL HISTORY Past Surgical History: Procedure Laterality Date ??? APPENDECTOMY N/A Appendectomy ??? BREAST BIOPSY ??? CHOLECYSTECTOMY N/A Cholecystectomy ??? EXCISION OF BUNION N/A Bunionectomy ??? EXTRACTION OF CATARACT N/A 07/24/2016 Cataract extraction ??? TONSILLECTOMY N/A Tonsillectomy ??? TYLECTOMY N/A Lumpectomy FAMILY HISTORY Negative for premature coronary disease in parents and siblings. Father age 89 had heart failure atherosclerotic cardiovascular disease. Mother age 85 fromleukemia. Sister age 70 from leukemia type 2 diabetes. Brother of stroke. Another brother of neck fracture from motor vehicle accident. SOCIAL HISTORY Patient has been for the past 7-8 years. Her at age 81 from COPD. She lives independently. Has 4 children, 10 grandchildren 16-17 great grandchildren. She is a former smoker of 2-3cigarettes daily for the 30 years. Potential history of alcohol abuse and had attended AA in the past. Caffeine intake is small. He does not routinely exercise and does use her cane when she is outsideof her house for stability. ALLERGIES Allergies Allergen Reactions ??? Iron Rash ??? Sulfamethoxazole-Trimethoprim Rash ??? Zinc Acetate Rash HOME MEDICATIONS Prior to Admission medications Medication Sig Start Date End Date Taking? Authorizing Provider acetaminophen (TYLENOL) 500 mg tablet Take 500 mg by mouth every 6 (six) hours as needed for pain. Yes Provider, Historical amLODIPine (NORVASC) 2.5 mg tablet Take 1.25 mg by mouth daily. 07/20/20 Yes Provider, Historical geriatric qraohdco-mgzc-wxom tablet Take 1 tablet by mouth daily. 01/30/15 Yes Provider, Historical cholecalciferol (VITAMIN D3) 1,000 Unit capsule Take 1,000 Units by mouth daily. 11/14/14 Provider, Historical raloxifene (EVISTA) 60 mg tablet at bedtime. 02/23/19 Provider, Historical simvastatin (ZOCOR) 10 mg tablet 10 mg. 10/28/14 Provider, Historical Vanicream-plasticized base 80-20 % cream with triamcinolone acetonide 40 mg/mL suspension Apply 1 application topically 3 (three) times a day. 06/17/16 Provider, Historical ibuprofen (ADVIL,MOTRIN) 400 mg tablet Take 400 mg by mouth as needed for pain. 07/23/20 Provider, Historical raNITIdine (ZANTAC) 150 mg tablet 150 mg. 10/28/14 07/23/20 Provider, Historical CURRENT MEDICATIONS amLODIPine, 1.25 mg, oral, Daily atorvastatin, 20 mg, oral, Daily at bedtime sennosides-docusate sodium, 1 tablet, oral, BID sodium chloride, 3 mL, intravenous, Q12H MARLO PRN MEDS ??? acetaminophen ??? alum-mag hydroxide-simeth ??? polyethylene glycol ??? sodium chloride ??? sodium chloride REVIEW OF SYSTEMS She thinks her weight has been quite stable but she does not routinely weigh herself. It appears that in February 2019 her weight was 67.3 kg and now currently is 65.4 kg. Denies any chest pain or chest pressure. No recent upper respiratory infection symptoms or fevers. No cough or congestion. No orthopnea PND. She did receive both of her COVID vaccinations which with the Pfizer brand 1st was on June 17 and 2nd was on July 07. Denies presyncope syncope sensation. Musculoskeletal discomfort is noted in the bilateral back flank area near hear trapezius and the nucchal regions bilaterally. This is also noted to have bilateral hand tingling as well as pale complexion. No blood per stool or urine.No nausea, vomiting or diarrhea. Slight edema to her lower extremities intermittently. No prior stroke or TIA that she is aware of. Denies anxiety or depression. Mild short-term memory loss and significant bilateral hearing loss with bilateral hearing aids. PHYSICAL EXAMINATION VITAL SIGNS: Temperature: [36.5 ??C-37.4 ??C] 36.5 ??C Heart Rate: [73-86] 80 Resp Rate: [11-27] 18 Blood Pressure: (118-177)/(55-131) 149/70 SpO2: [95 %-99 %] 95 % Height: [170.2 cm] 170.2 cm Weight: [65.4 kg-66.8 kg] 65.4 kg BSA (Calculated - sq m): [1.76 sq meters] 1.76 sq meters BMI (Calculated): [22.6 kg/m??] 22.6 kg/m?? Pulse Rate: [75-85] 81 Body mass index is 22.58 kg/m??. General: Comfortable and in no acute distress. Skin: No stasis dermatitis or ulceration of the lower extremities. Neck: No carotid bruits or jugular venous distention. Lungs: Clear bilaterally with good air entry. No crackles. Heart: Heart tones are distant. Regular rate and rhythm. Normal S1, S2, no murmurs. No S3 or S4 gallops. PMI is not displaced. Abdomen: Positive bowel sounds. No organomegaly. Soft, nontender. Liver is nonpulsatile. Extremities: Radial and carotid pulses are equal and symmetric bilaterally. Peripheral pulses equal bilaterally. Distal CMS intact. No clubbing or peripheral edema. Psych: Alert and oriented to person, place, and time. Mood is euthymic. LABORATORY Results for orders placed or performed during the hospital encounter of 07/23/20 ECG 12 Lead Result Value Ref Range Ventricular Rate ECG/Min 81 BPM [place] Interval 208 ms QRSD Interval 138 ms QT Interval 410 ms QTC Interval 476 ms P [place] 61 degrees R [place] 26 degrees T Wave [place] 62 degrees DIAGNOSTIC TESTS CHEST XRAY IMPRESSION: Moderate size hiatal hernia. Nodular opacity projects over the anterior thoracic spine on the lateral view, grossly stable compared to 2016; this could represent overlapping soft tissues, osteophyte formation, or other pulmonary etiology, although benign process is favored given relative stability over several years. No pleural effusion. No pneumothorax. Normal cardiomediastinal silhouette. Thoracolumbar dextroscoliosis. ?? EKG: TTE: Final Impressions 1. Normal left ventricular chamber size, calculated 2-D biplane volumetric ejection fraction 56 %. 2. 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 3. Grade 1/3 left ventricular diastolic dysfunction, consistent with low to normal left ventricular filling pressure. 4. Normal right ventricular chamber size, normal systolic function, estimated right ventricular systolic pressure 45 mmHg assuming right atrial pressure of 5 mmHg. 5. Trivial aortic valve stenosis, valve area by Doppler 1.75 cm2, systolic mean Doppler gradient 9 mmHg. 6. Mild-moderate tricuspid valve regurgitation. 7. No previous studies available for comparison. Findings Bedside echo performed. LEFT VENTRICLE: Normal left ventricular chamber size. Normal left ventricular wall thickness. Calculated 2-D biplane volumetric left ventricular ejection fraction 56 %. 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 No regional wall motion abnormalities. Grade 1/3 left ventricular diastolic dysfunction, consistent with low to normal left ventricular filling pressure. RIGHT VENTRICLE: Normal right ventricular chamber size. Normal right ventricular systolic function. Estimated right ventricular systolic pressure 45 mmHg assuming right atrial pressure of 5 mmHg. ATRIA: Normal left atrial size. Left atrial volume index 32 ml/m2. Normal right atrial size. CARDIAC VALVES: Trileaflet aortic valve. Mildly sclerotic aortic valve. Trivial aortic valve stenosis. Aortic valve systolic mean Doppler gradient 9 mmHg. Aortic valve area by Doppler 1.75 cm2. No aortic valve regurgitation. Normal mitral valve. Mild mitral valve regurgitation. Pulmonary valve not well visualized. Trivial pulmonary valve regurgitation. Normal tricuspid valve. Mild-moderate tricuspid valve regurgitation. OTHER ECHO FINDINGS: Normal inferior vena cava size with normal inspiratory collapse (>50%). Ascending aorta not well visualized. Abdominal aorta incompletely visualized. Normal abdominal aorta Doppler flow pattern. Noatrial level shunt by color flow imaging. No intracardiac mass or thrombus, but the left atrial appendage cannot be visualized adequately with transthoracic echo to exclude thrombus in this location. No pericardial effusion. ASSESSMENT / PLAN # Atypical posterior thorax/shoulder pains Her cardiac biomarkers are negative. She has had this discomfort for at least 8+ hours without any acute changes of her cardiac biomarkers as well as her EKG. Her symptoms appear to be atypical from a cardiac standpoint his they were in the posterior thorax region as well as posterior novel region that seem to be aggravated by pressing on to the area as well as by movement. Therefore suspect musculoskeletal in origin. # Hypertension Blood pressure is well controlled this time is also mildly elevated. She did have orthostatic blood pressure readings which were normal. They are as follows: Orthostatic Blood Pressure readings ?? Supine x 5 minutes, BP reading 153/71 (MAP 94), HR 92, RR 16, O2 98% ra. ?? Standing Immediately after supine, BP reading 155/76 (MAP 100), HR 84, RR 16, O2 98% ra ?? Standing x1 min, BP reading 167/89 (MAP 110), HR 80, RR 16, O2 99% ra. ?? Standing x3 min, BP reading 164/85 (MAP 104), HR 79, RR 14, O2 99% ra. ?? Standing x5 min, BP reading 145/102 (MAP 110), HR 82, RR 14, O2 98% ra. # Dyslipidemia Maintained on Lipitor 20 mg daily. # Left bundle branch block This appears to be new since 2016 but unsure of when he came about. Her echocardiogram does not showany significant abnormalities. Total care was discussed with Dr. Mukund Taylor, [facility] Outreach Stream Control Officer who expressed understanding and agreement to the current plan. We thank Dr. Joleen Harry for asking for our input in thecare of this patient. Further input is necessary at this current time. Cardiology will be signing off. Feel free to call with questions. Can follow with cardiology on a p.r.n. basis as an outpatient. MARGIN CODE Total Time: 75 minutes with >50% time spent in counseling and coordination of care. This time is independent of the time documented by the MD documented in this encounter Nursing Notes Debora Luna R.N. - 07/23/2020 7:34 PM CDT INPATIENT DISCHARGE SUMMARY Discharge Provider: Joleen Harry M.D. Admission Date: 07/23/2020 Discharge Date: 07/23/2020 DISCHARGE DISPOSITION Home/Self Care CONDITION AT DISCHARGE stable TREATMENTS None DEVICES/EQUIPMENT None PROFESSIONAL SKILLED SERVICES None MODE OF DISCHARGE Wheelchair TRANSPORTATION Private Vehicle ACCOMPANIED BY VOICE INSTRUCTOR and Family: Daughter All belongings sent home with patient. Debora Luna R.N. - 07/23/2020 4:28 PM CDT Shift Goals: Clinical Goals for Shift: Monitor for chest pain and respiratory distress Identify possible barriers to meeting goals/advancing plan of care: None End of Shift Summary: Pt has reported no pain or SOB this shift. No chest pain has been noted since admission. Pt has been IND in her room with no weakness or dizziness noted. She is getting CT done and then potential D/C after. Debora Luna R.N. - 07/23/2020 11:51 AM CDT Orthostatic Blood Pressure readings Supine x 5 minutes, BP reading 153/71 (MAP 94), HR 92, RR 16, O2 98% ra. Standing Immediately after supine, BP reading 155/76 (MAP 100), HR 84, RR 16, O2 98% ra Standing x1 min, BP reading 167/89 (MAP 110), HR 80, RR 16, O2 99% ra. Standing x3 min, BP reading 164/85 (MAP 104), HR 79, RR 14, O2 99% ra. Standing x5 min, BP reading 145/102 (MAP 110), HR 82, RR 14, O2 98% ra. Maria Renee R.N. - 07/23/2020 6:46 AM CDT Patient admitted from [place] ED about 0530. Patient presented to [place] ED due to not feeling well as she was getting ready for bed. Symptoms of 'not feeling right' including chest pain, chills, nausea and felt like may pass out. Symptoms lasted a couple of minutes but family wanted evaluated.BP elevated on arrival to ED (177/73 and then 118/94 later). Left bundle branch block noted on EKG that was not seen on EKG from 2018. Creat slightly elevated at 1.31; has chronic kidney disease and one atrophied kidney (pt reports she only has one kidney). Received 4 baby ASA in ED. Patient is to have echocardiogram today. documented in this encounter Plan of Treatment Scheduled Referrals Name Type Priority Associated Diagnoses Order S [facility] External referral Outpatient Referral Routine Pain Chest Atypi [facility] Ordered: physician 07/23/2020 (non-[place]) documented as of this encounter Procedures Procedure Name Priority Date/Time Associated Comments Diagnosis ECG STAT 07/23/2020 6:43 Results for this PM CDT procedure are i n the results section. CT CHEST WITHOUT RAD - Semiurgent 07/23/2020 4:35 Resu lts for this IV CONTRAST (Fast; most ED PM CDT procedure are in patients; some the results inpatients) section. US LOWER RAD - Semiurgent 07/23/2020 4:21 Results for this EXTREMITY VEINS (Fast; most ED PM CDT procedure are in BILATERAL patients; some the results inpatients) section. BASIC METABOLIC Timed 07/23/2020 11:21 Results for this PANEL, S/P AM CDT procedure are i n the results section. (TTE) 2D ECHO Routine 07/23/2020 10:54 Results fo r this DOPPLER COLOR AM CDT procedure are in the results section. ECG Routine 07/23/2020 7:14 Results for this AM CDT procedure are i n the results section. ECG MONITOR 07/23/2020 6:45 Results for this RECORD AM CDT procedure are i n the results section. documented in this encounter Results ECG 12 Lead (07/23/2020 6:43 PM CDT) P athologist Signature Ventricular Rate 77 BPM MUSE ECG/Min [place] Interval 180 ms MUSE QRSD Interval 126 ms MUSE QT Interval 400 ms MUSE QTC Interval 452 ms MUSE P [place] 34 degrees MUSE R [place] 14 degrees MUSE T Wave [place] 62 degrees MUSE Specimen Anatomical Collection Method Collection Time Receive d Time (Source) Location / / Volume Laterality 07/23/2020 6:43 PM 6:56 CDT PM CDT Impressions MUSE - 07/23/2020 6:56 PM CDT Normal sinus rhythm Left bundle branch block with secondary ST-T abnormalities When compared with ECG of 23-JUL-2020 07 :14, AZ interval has decreased Reviewed by SHEA Montanez Narrative This result has an attachment that is no t available. Procedure Note Aly Munoz M.D. - 07/23/2020Forma tting of this note might be different from the original. IMPRESSION: Normal sinus rhythm Left bundle branch block with secondary ST-T abnormalities When compared with ECG of 23-JUL-2020 07 :14, AZ interval has decreased Reviewed by SHEA Montanez Joleen Harry M.D. ECG ORDERABLES Performing Organization Address City/State/ZIP Code Phon e Number MUSE MUSE NA CT Chest without IV Contrast (07/23/2020 4:35 PM CDT) Anatomical Region Laterality Modality Chest, Thoracic RST LOS, Thoracic ARZ LOS, Thoracic N/A Computed Tomography FLA LOS Specimen (Source) Anatomical Collection Method Collection Time Re ceived Time Location / / Volume Laterality 07/23/2020 4:44 PM CDT Impressions 07/23/2020 4:50 PM CDT 1. Moderate size hiatal hernia with comp ressive atelectasis of the adjacent lower lobes. No evidence of acute consol idative pneumonia. 2. Evidence of prior granulomatous disea se. Narrative 07/23/2020 4:50 PM CDT EXAM: CT CHEST WITHOUT IV CONTRAST 3D/MIPS: 3D Post-Processing performed on a dependent workstation. COMPARISON: Chest radiograph same day. P rior PA and lateral chest radiograph 01/06/2016. FINDINGS: Heart size within normal limit s. No pleural or pericardial effusion. Moderate size hiatal hernia as seen on p rior radiographs. Calcified left hilar lymph nodes. No thoracic lymphadenopathy identified on noncontrast imaging. Linear opacities medial aspect of both l ower lobes adjacent to hiatal hernia, most compatible with compressive atelect asis. No discrete evidence of consolidative pneumonia. No pneumothorax . Calcified granuloma within the left apex posteriorly. Calcified granulomata within the spleen. Atrophic left kidney where visualized. No acute CT abnormality of the visualize d upper abdomen on noncontrast imaging. Mild S-shaped scoliosis of the visualize d spine. No acute fracture or destructive osseous abnormality. Procedure Note Kristopher Suresh M.D. - 07/23/2020For matting of this note might be different from the original. EXAM: CT CHEST WITHOUT IV CONTRAST 3D/MIPS: 3D Post-Processing performed on a dependent workstation. COMPARISON: Chest radiograph same day. P rior PA and lateral chest radiograph 01/06/2016. FINDINGS: Heart size within normal limit s. No pleural or pericardial effusion. Moderate size hiatal hernia as seen on p rior radiographs. Calcified left hilar lymph nodes. No thoracic lymphadenopathy identified on noncontrast imaging. Linear opacities medial aspect of both l ower lobes adjacent to hiatal hernia, most compatible with compressive atelect asis. No discrete evidence of consolidative pneumonia. No pneumothorax . Calcified granuloma within the left apex posteriorly. Calcified granulomata within the spleen. Atrophic left kidney where visualized. No acute CT abnormality of the visualize d upper abdomen on noncontrast imaging. Mild S-shaped scoliosis of the visualize d spine. No acute fracture or destructive osseous abnormality. IMPRESSION: 1. Moderate size hiatal hernia with comp ressive atelectasis of the adjacent lower lobes. No evidence of acute consol idative pneumonia. 2. Evidence of prior granulomatous disea se. Joleen LY CT PROCEDURES US Lower Extremity Veins Bilateral (07/23/2020 4:21 PM CDT) Anatomical Region Laterality Modality Lower Extremity, Ultrasound RST LOS, Ultrasound ARZ LOS, Ralf ateral Ultrasound Ultrasound FLA LOS Specimen (Source) Anatomical Collection Method Collection Time Re ceived Time Location / / Volume Laterality 07/23/2020 4:27 PM CDT Impressions 07/23/2020 4:28 PM CDT Negative for Acute DVT. Narrative 07/23/2020 4:28 PM CDT EXAM: US LOWER EXTREMITY VEINS BILATERAL Exam performed with color and spectral D oppler analysis. COMPARISON: None FINDINGS: The common femoral, upper deep femoral, femoral and popliteal veins are widely patent bilaterally, without thrombus. Th e posterior tibial, peroneal, soleal and gastrocnemius veins were segmentally vis ualized bilaterally and are normal where seen. The great saphenous veins bilatera lly are patent and negative for thrombus. Procedure Note Gavin Rodriguez M.D. - 07/23/2020Formattin g of this note might be different from the original. EXAM: US LOWER EXTREMITY VEINS BILATERAL Exam performed with color and spectral D oppler analysis. COMPARISON: None FINDINGS: The common femoral, upper deep femoral, femoral and popliteal veins are widely patent bilaterally, without thrombus. Th e posterior tibial, peroneal, soleal and gastrocnemius veins were segmentally vis ualized bilaterally and are normal where seen. The great saphenous veins bilatera lly are patent and negative for thrombus. IMPRESSION: Negative for Acute DVT. Joleen Harry M.D. IMG US PROCEDURES (ABNORMAL) Basic Metabolic Panel (07/23/2020 11:21 AM CDT) Analysis Performed At Patho logist Time Signature Potassium, P 4.2 3.6 - 5.2 07/23/2020 [facility] mmol/L 12:05 PM CDT Sodium, P 141 135 - 145 07/23/2020 [facility] mmol/L 12:05 PM CDT Chloride, P 107 98 - 107 07/23/2020 [facility] mmol/L 12:05 PM CDT Bicarbonate, P 24 22 - 29 07/23/2020 [facility] mmol/L 12:05 PM CDT Anion Gap, P 10 7 - 15 07/23/2020 [facility] 12:05 PM CDT BUN (Blood Urea 15 6 - 21 07/23/2020 [facility] Nitrogen), P mg/dL 12:05 PM CDT Creatinine 1.13 (H) 0.59 - 07/23/2020 [facility] 1.04 mg/dL 12:05 PM CDT eGFR-Black/Afri 52 (L) >=60 07/23/2020 [facility] can Greek mL/min/BSA 12:05 PM CDT Comment: ----ADDITIONAL INFORMATION---- Estimated GFR calculated using the 2009 CKD_EPI creatinine equation. eGFR Non-Black/ 45 (L) >=60 mL/min/BSA 07/23/2020 12:05 PM CDT [facility] Greek Comment: ----ADDITIONAL INFORMATION---- Estimated GFR calculated using the 2009 CKD_EPI creatinine equation. Calcium, Total, P 9.9 8.8 - 10.2 mg/dL 07/23/2020 12:0 5 PM CDT [facility] Glucose, P 100 70 - 140 mg/dL 07/23/2020 12:05 PM CDT [facility] Specimen Anatomical Collection Method Collection Time Receive d Time (Source) Location / / Volume Laterality Blood (Blood, 07/23/2020 11:21 07/23/2020 Venous) AM CDT 11:45 AM CDT Joleen Harry M.D. LAB BLOOD ADD-ON Performing Organization Address City/State/ZIP Code Phon e Number [facility]- [address] [place] [id number] [place] [address] (TTE) 2D ECHO DOPPLER COLOR (07/23/2020 10:54 AM CDT) [facility] Method Time Signature Ejection Fraction 56 MC CV EIMS LV Mass Index 83 MC CV EIMS LV End-Diastolic 42 MC CV EIMS Diameter LV End-Systolic 28 MC CV EIMS Diameter LV End-Diastolic 82 MC CV EIMS Volume LV End-Systolic 36 MC CV EIMS Volume MV E Velocity 0.9 MC CV EIMS MV A Velocity 1.2 MC CV EIMS MV E/A 0.75 MC CV EIMS MV e' Velocity 0.05 MC CV EIMS Medial MV E/e' Medial 18.0 MC CV EIMS Left ventricular 45 MC CV EIMS stroke volume index Cardiac Output 6.30 MC CV EIMS Cardiac Index 3.58 MC CV EIMS LV Interventricular 11 MC CV EIMS Septal Wall Thickness LV Posterior Wall 10 MC CV EIMS Thickness LV Relative Wall 48 MC CV EIMS Thickness RV 4-Chamber Basal 39 MC CV EIMS Diameter TAPSE 29 MC CV EIMS Tricuspid Annular S? 0.14 MC CV EIMS TR Vmax 3.18 MC CV EIMS RA Pressure 5 MC CV EIMS RV Systolic Pressure 45 MC CV EIM S AV mean gradient 9 MC CV EIMS Aortic valve area 1.75 MC CV EIMS Aortic Valve 0.56 MC CV EIMS Dimensionless Index LA Volume Index 32 MC CV EIMS Anatomical Region Laterality Modality Echocardiography Specimen (Source) Anatomical Collection Method Collection Time Re ceived Time Location / / Volume Laterality 07/23/2020 9:22 AM CDT Impressions 07/23/2020 12:55 PM CDT Bedside echo performed. ??LEFT VENTRICLE: ??Normal left ventricular chamber size. ??Normal left ventricular wall thickness. ??Calculated 2-D biplane volumetric left ventricular ejection fraction 56 %. ??Paradoxical ventricular septal motion due to left bundle branch block. ??No regional wall motion abnormalities. ??Gr lalit 1/3 left ventricular diastolic dysfunction, consistent with low to normal left ventr icular filling pressure. ??RIGHT VENTRICLE: ??Normal right ventricular chamber size. ??Normal right ventricular systolic function. ??Estimated right ventricular systolic pressure 45 mmHg as suming right atrial pressure of 5 mmHg. ??ATRIA: ??Normal left atrial size. ??Left atrial volume i ndex 32 ml/m^2. ??Normal right atrial size. ??CARDIAC VALVES: ??Trileaflet aortic valve. ??Mil dly sclerotic aortic valve. ??Trivial aortic valve stenosis. ??Aortic valve systolic mean D oppler gradient 9 mmHg. ??Aortic valve area by Doppler 1.75 cm^2. ??No aortic valve regurgitati on. ??Normal mitral valve. ??Mild mitral valve regurgitation. ??Pulmonary valve not wel l visualized. ??Trivial pulmonary valve regurgitation. Normal tricuspid valve. ??Mild-moderate tricuspid valve regurgitation. ??OTHER ECHO FINDINGS: Normal inferior vena cava size with norm al inspiratory collapse (>50%). ??Ascending aorta not well visualized. ??Abdominal aorta incom pletely visualized. ??Normal abdominal aorta Doppler flow pattern. ??No atrial level shunt by colo r flow imaging. ??No intracardiac mass or thrombus, but the left atrial appendage cannot be visu alized adequately with transthoracic echo to exclude thrombus in this location. ??No pericard ial effusion. For the complete report, see the [employer] Documents. Narrative 07/23/2020 12:55 PM CDT For the complete report, see the [employer] Documents. Final Impressions 1. Normal left ventricular chamber size, calculated 2-D biplane volumetric ejection fraction 56 %. 2. 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 3. Grade 1/3 left ventricular diastolic dysfunction, consistent with low to normal left ventricular filling pressure. 4. Normal right ventricular chamber size , normal systolic function, estimated right ventricular systolic pressure 45 mmHg assuming right atrial pressure of 5 mmHg. 5. Trivial aortic valve stenosis, valve area by Doppler 1.75 cm^2, systolic mean Doppler gradient 9 mmHg. 6. Mild-moderate tricuspid valve regurgi tation. 7. No previous studies available for [facility]. Procedure Note Maggie Arceo M.D. - 07/23/2020Forma tting of this note might be different from the original. For the complete report, see the [employer] Documents. Final Impressions 1. Normal left ventricular chamber size, calculated 2-D biplane volumetric ejection fraction 56 %. 2. 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 3. Grade 1/3 left ventricular diastolic dysfunction, consistent with low to normal left ventricular filling pressure. 4. Normal right ventricular chamber size , normal systolic function, estimated right ventricular systolic pressure 45 mmHg assuming right atrial pressure of 5 mmHg. 5. Trivial aortic valve stenosis, valve area by Doppler 1.75 cm^2, systolic mean Doppler gradient 9 mmHg. 6. Mild-moderate tricuspid valve regurgi tation. 7. No previous studies available for [facility]. Findings Bedside echo performed. LEFT VENTRICLE: Normal left ventricular chamber size. Normal left ventricular wall thickness. Calculated 2 -D biplane volumetric left ventricular ejection fraction 56 %. Paradoxical ventricular s eptal motion due to left bundle branch block. No regional wall motion abnormalities. Grad e 1/3 left ventricular diastolic dysfunction, consistent with low to normal left ventr icular filling pressure. RIGHT VENTRICLE: Normal right ventricular chamber size. Normal r ight ventricular systolic function. Estimated right ventricular systolic pressure 45 mmHg as suming right atrial pressure of 5 mmHg. ATRIA: Normal left atrial size. Left atrial volume ind ex 32 ml/m^2. Normal right atrial size. CARDIAC VALVES: Trileaflet aortic valve. Mildly sclerotic aortic valve. Trivial aortic valve stenosis. Aortic valve systolic mean Dop pler gradient 9 mmHg. Aortic valve area by Doppler 1.75 cm^2. No aortic valve regurgitation . Normal mitral valve. Mild mitral valve regurgitation. Pulmonary valve not well visualized. Trivial pulmonary valve regurgitation. Normal tricuspid valve. Mild-moderate tr icuspid valve regurgitation. OTHER ECHO FINDINGS: Normal inferior vena cava size with norm al inspiratory collapse (>50%). Ascending aorta not well visualized. Abdominal aorta incompl etely visualized. Normal abdominal aorta Doppler flow pattern. No atrial level shunt by color flow imaging. No intracardiac mass or thrombus, but the left atrial appendage cannot be visu alized adequately with transthoracic echo to exclude thrombus in this location. No pericardia l effusion. For the complete report, see the [employer] Documents. Daryl Zpeeda M.D. CV ECHO PROCEDURES ECG 12 Lead (07/23/2020 7:14 AM CDT) P athologist Signature Ventricular Rate 81 BPM MUSE ECG/Min [place] Interval 208 ms MUSE QRSD Interval 138 ms MUSE QT Interval 410 ms MUSE QTC Interval 476 ms MUSE P [place] 61 degrees MUSE R [place] 26 degrees MUSE T Wave [place] 62 degrees MUSE Specimen Anatomical Collection Method Collection Time Receive d Time (Source) Location / / Volume Laterality 07/23/2020 7:14 AM 8:06 CDT AM CDT Impressions MUSE - 07/23/2020 7:24 AM CDT Normal sinus rhythm with 1st degree A-V block Left bundle branch block T wave abnormality, consider lateral isc hemia When compared with ECG of 22-JUL-2020 21 :07, [place] interval has increased Reviewed by SHEA Lilly Narrative This result has an attachment that is no t available. Procedure Note Jason Doan M.D. - 07/23/2020Formatt ing of this note might be different from the original. IMPRESSION: Normal sinus rhythm with 1st degree A-V block Left bundle branch block T wave abnormality, consider lateral isc hemia When compared with ECG of 22-JUL-2020 21 :07, [place] interval has increased Reviewed by SHEA Lilly Daryl Storvick M.D. ECG ORDERABLES Performing Organization Address City/State/ZIP Code Phon e Number MUSE MUSE NA ECG MONITOR RECORD (07/23/2020 6:45 AM CDT) Narrative 07/23/2020 6:45 AM CDT This result has an attachment that is no t available. Ordered by an unspecified provider. Default Authenticator Lawrence ECG ORDERABLES documented in this encounter Visit Diagnoses Diagnosis Presyncope - Primary Pain Chest Atypical documented in this encounter Admitting Diagnoses Diagnosis Presyncope documented in this encounter Administered Medications Inactive Administered Medications - up to 3 most recent administrations Medication Order MAR Action Action Date Dose Rate Site amLODIPine tablet 1.25 mg Given 07/23/2020 9:26 AM CDT 1.25 mg (NORVASC) 1.25 mg, oral, Daily, First dose on Thu07/23/20 at 0900 sennosides-docusate sodium 8.6-50 mg per Given 07/23/2020 9:26 A M CDT 1 tablet tablet 1 tablet (SENOKOT-S) 1 tablet, oral, 2 times daily, First dose on Thu07/23/20 at 0900, Do not give if patient has diarrhea. sodium chloride 0.9 % injection 3 mL Given 07/23/2020 9:32 AM CDT 3 mL 3 mL, intravenous, Every 12 hours scheduled, First dose on Thu07/23/20 at 0900, Peripheral Intravenous Catheter and Rapid Infusion Catheter, when no infusion to maintain patency documented in this encounter Active and Recently Administered Medications Times are shown in CDT. Scheduled Medication Order 07/21/2020 07/22/2020 07/23/2020 amLODIPine tablet 1.25 mg (NORVASC) 0926 (Given - Provider: Debora Luna R.N.) 1.25 mg, oral, Daily, First dose on Thu07/23/20 at 0900 atorvastatin tablet 20 mg (LIPITOR) 20 mg, oral, Daily at bedtime, First dos e on Thu07/23/20 at 2100, atorvaSTATin 20 mg oral daily was interchanged for simvastatin 5-40 mg oral daily sennosides-docusate sodium 8.6-50 mg per tablet 1 tablet (SENOKO T-S) 0926 (Given - Provider: Debora Luna R.N.) 1 tablet, oral, 2 times daily, First dos e on Thu07/23/20 at 0900, Do not give if patient has diarrhea. sodium chloride 0.9 % injection 3 mL 0932 (Given - Provider: Debora Luna R.N.) 3 mL, intravenous, Every 12 hours schedu led, First dose on Thu07/23/20 at 0900, Peripheral Intravenous Catheter and Rapid Infusion Catheter, when no infusion to maintain patency PRN Medication Order 07/21/2020 07/22/2020 07/23/2020 acetaminophen tablet 500 mg (TYLENOL) 500 mg, oral, Every 6 hours PRN, mild pa in or score 1-3 of 10, headaches, Starting Thu07/23/20 at 0607 alum-mag hydroxide-simeth 200-200-20 mg/5 mL suspension 30 mL (M AALOX) 30 mL, oral, Every 4 hours PRN, indigest ion, heartburn, Starting Thu07/23/20 at 0607 polyethylene glycol powder packet 1 packet (MIRALAX) 1 packet, oral, Daily PRN, constipation, Starting Thu07/23/20 at 0607, Ordered sequence of administration: polyethylene glycol, then bisacodyl until BM achieved. Avoid mixing with starch-based thickened liquids. sodium chloride 0.9 % injection 10 mL 10 mL, intravenous, As needed, line care , Starting Thu07/23/20 at 0608, Peripheral Intravenous Catheter and Rapid Infusion Catheter, prior to blood sampling, post blood transfusion or post blood sampling sodium chloride 0.9 % injection 3 mL 3 mL, intravenous, As needed, line care, Starting Thu07/23/20 at 0608, Prior to and following infusion and between multiple consecutive infusions: sodium chloride 0.9 % injection documented in this encounter
--- OUTSIDE RECORDS SUMMARY | 2022-01-19 14:57 | XMS_ITS | Encounter Summary ---
:1935 [facility] Address [address] [place] [address] Care Team Providers Name Role Phone Unavailable Primary Care Provider Unavailable Reason for Visit Reason Comments HEARING LOSS Hearing Aid Encounter Details Date Type Department Care Team Description 02/13/2021 Office Visit [facility] Jeanne, Bilateral sensorineural [id number] [address] STARR Dill hearing loss (Primary [place], [place] [address] [facility] [place] [id number] [facility] [phone] [place] [address] Social History Tobacco Use Types Packs/Day Years Used Date Smoking Tobacco: Never Assessed Sex Assigned at Date Recorded Not on file documented as of this encounter Progress Notes Leatha Angel AU.D. - 02/13/2021 4:30 PM CDT Hearing Evaluation and Hearing Aid Review Subjective: Karoline Nuñez, 85 y.o., was seen for an audiological evaluation upon order from Surjit Chan MD at [facility]. She was accompanied to the appointment by her daughters. She hasnot been seen previously for a hearing [facility] at [facility], [facility] [place] Audiogram indicates sensorineural hearing loss, although poor original copy to see all frequencies. They come in today to discuss options for her hearing and hearing aids. They are very frustrated by how she has been hearing over the past 3-12 months. Her hearing aids don't seem to be helping her enough. She has gone to [facility] where they are told the hearing aids are working, and she has had to have the car cooper wires replaced multiple times because they were broken. She has frequent buildup of wax in her ears, which was recently removed. Dr. Chan has recommended use to ear drops for cerumen maintenance. Dr. Chan recommended they see doctor of audiology to further explore options, and possible referral for cochlear implant evaluation if she continues to experience difficulty. She reports that she feels speech is unclear even while wearing her hearing aids. She also reports frequent noisy tinnitus in both ears, which she notices primarily when sheis at home. She finds the tinnitus to be bothersome, but it is slightly better with hearing aid use.She has [facility] RICs and extended canal lock earmolds that are about 3 years old. Her daughters note that she doesn't always follow conversation, especially when other noises are around (restaurant), in the car, or facing away from her. When they are out at a restaurant she isn't part of the conversation often. Previous audiogram at [facility] indicates word recognition completed with only 10 words and difficulty reading entire audiogram due to poor copy. Recommended completing partial hearing evaluation today for better picture of her hearing, and they were in agreement. Objective: Otoscopy revealed clear ear canals, bilaterally. Patient was evaluated under insert earphones with good reliability. Pure tone audiometric testing revealed a moderate to severe sensorineural hearing loss, bilaterally.Bone conduction was not completed today and copied from outside audiogram on 01/16/2021. Speech bookkeeper receptionist thresholds were obtained at 70 dBHL for the right ear and 70 dBHL for the left ear. Word recognition at 100 dBHL was 72% for the right ear and at 100 dBHL was 76% for the left ear. Patient wears [facility] BRENDA, bilaterally. They were notified that we cannot program [facility] hearing aids, which they understood. They were interested in any recommendations to improve hearing and listening. Visual inspection of hearing aids revealed clean hearing aids and wax guards. Electroacoustic evaluation of patient's hearing aids revealed them to be functioning according to specifications. Speech mapping completed in testbox indicated that hearing aids were meeting target through 2000 Hz and below target from 3000 to 8000 Hz. These results were uploaded into [employer]. Assessment: Communicatively significant moderate to severe sensorineural hearing loss, bilaterally. Speech bookkeeper receptionist thresholds were in good agreement with the pure tone thresholds. Word recognition for both ears was considered to be fair at a level much louder than conversation. Good hearing aid function, bilaterally. Daughters note that she is constantly pressing the button onher hearing aids, and they wonder if she plays around with it so much that she isn't aware where they are set. Her daughter notices that she will adjust the hearing aids because the TV is too loud rather than turning down the TV. Listening check revealed large range down/up on volume control, so it may be beneficial to have a smaller VC range. Discussed option of working with current hearing aids vs. Discussing new hearing aids at this time. They would like to see what could be done with current hearing aids since they are 3 years old. Counseled patient and daughters on insertion of hearing aids and earmolds, since this is likely what is causing her to have broken car cooper wires on occasion. Patient practiced, but she had difficulty with insertion when she tried new way without twisting receivers. Recommend returning to [facility] for programming adjustments including: increasing gain above 3000 Hz if possible, increasing noise reduction filters, and limiting or disabling volume control. Discussed recommended changes that may be able to be made to hearing aids, but explained that hearing aids may be maxed out in those areas. Counseledpatient and daughters on realistic expectations and communication strategies. Emphasized importance of direct communication (front facing, clear and slow, seeing face) and reducing surrounding noise when possible. Discussed tinnitus that she has been experiencing. Explained that she likely only hears at home because that is a very quiet environment. Tinnitus maskers including fan or sound machine fortinnitus in quiet (at home) was recommended. Plan: These results were discussed with the patient and her daughters. They are planning on going to a different [facility] to have hearing aids adjusted. If significant challenges continue, they will schedule hearing aid evaluation to discuss new hearing aid options. They were appreciative for all the information they received today. It was recommended that patient return to the clinic in 1 year for a re-evaluation of the hearing or sooner if a noticed change occurs with hearing aids or hearing. documented in this encounter Plan of Treatment Not on filedocumented as of this encounter Visit Diagnoses Diagnosis Bilateral sensorineural hearing loss - P rimary Sensorineural hearing loss, bilateral documented in this encounter
--- OUTSIDE RECORDS SUMMARY | 2022-01-19 14:57 | XMS_ITS | Encounter Summary ---
:1935 Author Organization [facility] Address [address] [place] [address] Care Team Providers Name Role Phone Unavailable Primary Care Provider Unavailable Encounter Details Date Type Department Care Team Description 07/24/2016 Hospital Encounter [facility] Berto Lundy M.D. [address] [place] [address] (Wo rk) Social History Tobacco Use Types Packs/Day Years Used Date Smoking Tobacco: Former Sex Assigned at Date Recorded Not on file documented as of this encounter Last Filed Vital Signs Vital Sign Reading Time Taken Comments Blood Pressure 147/79 07/24/2016 11:35 AM CDT Pulse 77 07/24/2016 11:35 AM CDT Temperature - - Respiratory Rate 16 07/24/2016 11:35 AM CDT Oxygen Saturation - - Inhaled Oxygen Concentration - - Weight 65.7 kg (144 lb 13.5 oz) 07/24/2016 9:07 AM CDT Height 65.7 cm (2' 1.87) 07/24/2016 11:35 AM CDT Body Mass Index 152.21 07/24/2016 9:07 AM CDT documented in this encounter Medications at Time of Discharge Medication Sig Dispensed Refills Start Date End Date cholecalciferol (VITAMIN Take 1,000 Units by 0 D3) 1,000 Unit capsule mouth daily. geriatric Take 1 tablet by 0 01/30/2015 ejprhwou-nnga-ztdy tablet mouth daily. simvastatin (ZOCOR) 10 mg Take 10 mg by mouth 0 0 10/28/2014 tablet at bedtime. Vanicream-plasticized Apply 1 application 0 06/17 base 80-20 % cream with topically 3 (three) triamcinolone acetonide times a day. 40 mg/mL suspension raNITIdine (ZANTAC) 150 150 mg. 0 10/28/2014 0 07/23/2020 mg tablet documented as of this encounter Procedure Notes Marlen Kam R.N. - 07/24/2016 9:45 AM CDT Peripheral IV Peripheral IV Entered On: 07/24/2016 9:47 CDT Performed On: 07/24/2016 9:45 CDT by MARLEN KAM RN Peripheral IV Peripheral IV Assess/Intervention Grid Peripheral IV #1 Peripheral IV #2 IV Activity : Attempts/unsuccessful Attempts/unsuccessful Removal : Catheter intact Catheter intact Number of Attempts : 1 1 Date of Insertion : 07/24/2016 CDT 07/24/2016 CDT Discontinued Date : 07/24/2016 CDT 07/24/2016 CDT IV Site : Hand Antecubital Laterality : Left Left Catheter Size : 22 22 Catheter Type : Protective Protective Site Condition : No complications MARLEN KAM RN - 07/24/2016 9:45 CDT MARLEN KAM RN - 07/24/2016 9:45 CDT [facility] Document Id: [id number] CDT!24 Michelle Tate R.N. - 07/24/2016 9:07 AM CDT Preprocedure Checklist Preprocedure Checklist Entered On: 07/24/2016 9:13 CDT Performed On: 07/24/2016 9:07 CDT by MICHELLE TATE RN Checklist Last Fluid Intake : 07/23/2016 20:00 CDT Last Food Intake : 07/23/2016 20:00 CDT MICHELLE TATE RN - 07/24/2016 9:07 CDT Surgery Prep Grid Contacts/Glasses Removed : Yes Dentures Removed : NA Hairpins/Hairpiecies Removed : Yes Hearing Aid Removed : NA Home Prep Complete : Yes Jewelry/Piercing Removed : Yes Makeup/Nail Portuguese Removed : Yes Oral Hygiene : Yes Preop Scrub AM of Surgery : Yes Preop Scrub Night Prior to Surgery : Yes Prosthesis Removed : NA Tampon Removed : NA Verified - No hair products used : Yes Voided simonizer to procedure : Yes Wearing Patient Gown : Yes MICHELLE TATE RN - 07/24/2016 9:07 CDT Patient Rights Grid Blood Consent Signed : TALISHA Surgical/Procedure Consent Signed : Yes MICHELLE TATE RN - 07/24/2016 9:07 CDT Family Location : at bedside MICHELLE TATE RN - 07/24/2016 9:07 CDT Checklist II Patient Safety Grid Allergy Band on and Verified : Yes Anesthesia Consult : Yes Band on for Limb Alert : NA Blood Band on and Verified : NA Current ECG in Medical Record : Yes Current H&P in Medical Record : Yes Implants Verified : Yes Medication Reconciliation on Chart : Yes Pacemaker/AICD Verified : Yes ID Band on and Verified : Yes Preop Medications Sent With Patient : Yes Relevant Images in Medical Record : Yes Review of Labs : Yes Procedure/Site Verified by Patient/Family : Yes Procedure/Site Verified by RN : Yes Procedure/Site Verified by Physician : Yes Type & Screen/Type & Cross Completed : MICHELLE LIVE RN - 07/24/2016 9:07 CDT RN Who Verified Site : MICHELLE TATE RN Physician Who Verified Site : BERTO MONCADA MD, DANA A RN - 07/24/2016 9:07 CDT FLAVIA Screening Known Obstructive Sleep Apnea : No - NOT diagnosed with FLAVIA FLAVIA Score : No qualifying data available. FLAVIA Results : No qualifying data available. MICHELLE TATE RN - 07/24/2016 9:07 CDT FLAVIA Assessment Do you have high blood pressure or have you been told to take medication for high blood pressure? : No Frequency of Snoring : Sometimes (1-2 times per month) Frequency of Gasping, Choking, Snorting : Never Total Number of Historical Features : 0 Neck Circumference (cm) : 32/33 Total Sleep Apnea Clinical Score Calc : 0 MICHELLE TATE RN - 07/24/2016 9:07 CDT Valuables/Belongings Valuables/Belongings Grid Valuables at Bedside Clothes, Patient Valuables : Jacket, Shirt MICHELLE TATE RN - 07/24/2016 9:07 CDT Belongings Sent Home With : Pt and son MICHELLE TATE RN - 07/24/2016 9:07 CDT Advance Directive Advanced Directives : No Advance Directive Additional Information : No MICHELLE TATE RN - 07/24/2016 9:07 CDT Vital Signs Temperature Core : 36.3 DegC(Converted to: 97.3 DegF) (LOW) Limb Alert Question : No Peripheral Pulse Rate : 75 /min Respiratory Rate : 16 /min Systolic Blood Pressure : 158 mmHg (HI) Diastolic Blood Pressure : 75 mmHg NIBP Mean : 103 mmHg BP Location : Left upper extremity SpO2 : 98 % Oxygen Therapy : Room air Height : 65.7 cm(Converted to: 2 ft 2 inch(es)) Actual Weight : 65.7 kg Actual Weight Conversion to Pounds : 144.54 lb Body Mass Index : 152.21 kg/m2 MICHELLE TATE RN - 07/24/2016 9:07 CDT Source: [email or web address] Document Id: [id number] CDT!79 documented in this encounter Nursing Notes Michelle Tate R.N. - 07/24/2016 9:02 AM CDT Day Surgery Admission History/Asmt Adult Day Surgery Admission History/Asmt Adult Entered On: 07/24/2016 9:07 CDT Performed On: 07/24/2016 9:02 CDT by MICHELLE TATE RN General Info Preferred Name : Karoline Admitted From : Non-Health Care Facility Point of Origin Present in Room During Exam/Procedure : Son Chief Complaint : left eye cataract Preferred Communication Mode : Verbal Information Given By : Son Languages : [place] Sudanese Is Patient Female and 13-50 no hysterectomy : No MICHELLE TATE RN - 07/24/2016 9:02 CDT Nutrition Have you recently lost weight without trying? : No Decreased Appetite Nutrition : No Tube Feedings or Parenteral Nutrition : No MST Score : 0 Home Diet : Regular Appetite : Excellent Eating Difficulties : None Feeding Ability : Complete independence MICHELLE TATE RN - 07/24/2016 9:02 CDT Home Environment Current Daily Living Assistance : None MICHELLE TATE RN - 07/24/2016 9:02 CDT Dependent Habits Exposure to Tobacco Smoke : Care provider denies smoking in home Smoking Status : Former smoker Tobacco 2A : Yes Tobacco Use/Currently Using : No Tobacco Use/Last 30 Days : No Tobacco Use/Last 12 months : No Tobacco Last Use/Year : 1969 Alcohol Use : No MICHELLE TATE RN - 07/24/2016 9:02 CDT Caffeine Use Grid Caffeine Use : Current Type : Coffee, Soft drinks, Tea Frequency : Daily Amount : 1 cup MICHELLE TATE RN - 07/24/2016 9:02 CDT Psychosocial Adult Domestic Abuse Concerns : None Behavioral Health Screen/Safety Assmt : No Hoahaoism Preference : Faith: Religious MICHELLE TATE RN - 07/24/2016 9:02 CDT Advance Directive Advanced Directives : No Advance Directive Additional Information : MICHELLE De Leon RN - 07/24/2016 9:02 CDT Educ Needs Patient/Family Education Needs : Activity limitations/expectations, Bathing/hygiene, Safety, fall MICHELLE TATE RN - 07/24/2016 9:02 CDT Learning Style Preference Adult Grid Patient : Printed materials, Verbal explanation Family : Printed materials, Verbal explanation MICHELLE TATE RN - 07/24/2016 9:02 CDT Psycho/Emotional Pain Symptoms : MICHELLE De Leon RN - 07/24/2016 9:02 CDT Source: [email or web address] Document Id: [id number] CDT!50 Nan Anderson R.N. - 07/16/2016 9:12 AM CDT pre-op SDS pre-op phone call and checklist reviewed with pt over the phone. Electronically Signed By: NAN ANDERSON RN On: 07/16/2016 09:13 AM Source: [email or web address] Document Id: [id number] documented in this encounter OR Notes Op Note - Conversion, Historical Provider Ser - 07/24/2016 2:51 PM CDT [facility] CASE RECORD UPLOAD DATA PATIENT: KAROLINE NUÑEZ SURGERY DATE: 07/24/2016 UNIT #: [id number] ROOM: [address] NBR: [id number] STATUS: In Process DATE: 1935 SIGN. STATUS: Unsigned Surgeon Assistants Procedure(s) Berto Moncada Cataract Removal by Phaco with IOL Implant SECTION NAME : 1/IntraOp Case Record -- PAGE : OR01A PreOperative Assessment Notes: Comments: Patient Identification: CHART Chart Date of IDBAND I.D. Band PATIENT Patient VERBAL Verbal Procedure / Site Verification: CONSENT Consent form corresponds to plan JUNIE Site Marked STATE Patient/Parent states procedure TOUCH Patient/Parent touches site Mental/Emotional Status: ALERT Alert SECTION NAME : 1/IntraOp Case Record -- PAGE : OR01B PreOperative Assessment Chart Reviewed: HP History and Physical LAB Lab Reports OR CKLST OR Check List complete SURG Previous Surgery Comment: Notes: SECTION NAME : 1/IntraOp Case Record -- PAGE : OR02A NPO NPO After Midnight?: Y If No, NPO Since: Latex Allergy: NO SECTION NAME : 1/IntraOp Case Record -- PAGE : OR02B Anesthesia Staff Anesthesiologist: FORESTRY WORKER: Jaskaran Brannon FORESTRY WORKER SECTION NAME : 1/IntraOp Case Record -- PAGE : OR02C Anesthesia Primary Anes: SHAYE Ladd Anes: 4LOC Local Comments: Regional Anesthetic Only: SECTION NAME : 1/IntraOp Case Record -- PAGE : OR03A Times In OR Time: 1047 Surgery Start Time: 1054 Surgery End Time: 1059 Out of OR Time: 1102 Anesthesia Start Time: Anesthesia End Time: Cecum Time: SECTION NAME : 1/IntraOp Case Record -- PAGE : OR03B Classifications Classification of Surgical Wound: Y Wound Class: CL Clean ASA Class: 3 CLASS Moderately severe systemic disorder Case Class: 0ELEC Elective Case Classified By: ALCIRA Anesthestist Mallampati Class: Patient Transported to OR Via: CART Cart with Side Rails Up X2 Patient Transported to OR by: ALCIRA YING SECTION NAME : 1/IntraOp Case Record -- PAGE : OR03C Allergy Any Known Drug Allergies?: Y Patient Drug Allergies: See Yana SECTION NAME : 1/IntraOp Case Record -- PAGE : OR04A PreOperative Assessment Blood (type and screen): NO Creutzfeldt-Pierre Disease Screening: NO Pre Existing Interventions: IV IV Comment: Notes: SECTION NAME : 1/IntraOp Case Record -- PAGE : OR04B PreOperative Assessment Personal Items: NONE None Comment: SECTION NAME : 1/IntraOp Case Record -- PAGE : OR04C PreOperative Assessment Note Patient Sensory Limitations: Y Patient Limitations: NONE None Comment: PreOp Diagnosis: LEFT EYE CATARACT SECTION NAME : 1/IntraOp Case Record -- PAGE : OR05 Procedure Time Out TIME OUT: DO NOT PROCEED UNTIL ANY INCONSISTENCIES ARE RESOLVED TIME OUT takes place in the OR room, after the patient is prepped and draped and it involves the ENTIRE TEAM. All team members must verbally agree on: 1. PATIENT NAME AND DATE OF 2. NAME OF PHYSICIAN, PROCEDURE, AND CORRECT SIDE / SITE 3. CORRECT PATIENT NAME ON ANY RADIOGRAPH PRESENT 4. SPECIAL EQUIPMENT AND IMPLANTS ARE AVAILABLE AND PRESENT 5. THE PATIENT IS IN THE CORRECT POSITION FOR THE PROCEDURE 6. APPROPRIATE ANTIOBIOTIC HAS BEEN GIVEN TIME and INITIALS verify that TIME OUT has occured Time Out for Procedure Verification: 1054 Surgery Start Time: 1054 OR Nurse Initials: [facility] Notes: BRIEFING DONE ALL PARTICIPATED SECTION NAME : 1/IntraOp Case Record -- PAGE : OR06A Case Personnel Biostatistics Manager: Marlen Reyna RN Relief Biostatistics Manager: SECTION NAME : 1/IntraOp Case Record -- PAGE : ORZane Case Personnel OR Tech: Lin Penny CST Relief OR Tech: SECTION NAME : 1/IntraOp Case Record -- PAGE : ORReyna Case Actuarial Internship: NONE None Relief Assist: SECTION NAME : 1/IntraOp Case Record -- PAGE : OREstefani Case Personnel Other Name: LUPILLO COON SITE PATH Cole HERNANDEZ SITE PATH Other Role: AGENCY Agency AGENCY Agency Notes: SECTION NAME : 1/IntraOp Case Record -- PAGE : ORGeraldoA Positioning Apply Safety Devices: N/A Safety Strap Applied to: papoose Skin Risk Factors NONE None Comment: SECTION NAME : 1/IntraOp Case Record -- PAGE : ORGeraldoB Positioning Evaluate PreOp Skin: Y PreOp Skin Assessment: unremarkable Positioning Devices: PIL pillow Comment: SECTION NAME : 1/IntraOp Case Record -- PAGE : OR07C Positioning Positioning Protection: PILLOW Pillow GEL Gel Pads Comment: under legs and head Notes: SECTION NAME : 1/IntraOp Case Record -- PAGE : OR08A Positioning Position for Surgery: SUP Supine Comment: Positioned By: ALCIRA Certified Registered Nurse Landscape Gardener RN Registered Nurse Comment: SECTION NAME : 1/IntraOp Case Record -- PAGE : OR08B Positioning Arm Position During Surgery: ARMS Arms Padded at Side Comment: Notes: SECTION NAME : 1/IntraOp Case Record -- PAGE : OR08C Prep Skin Prep: Y Prep Solution: BSOL Betadine Solution *Length of Alcohol Prep Dry Time (3 min minimum): 3 Comment: SECTION NAME : 1/IntraOp Case Record -- PAGE : ORAlbinoA Prep Skin Condition at Op Site: INTACT Intact Comment: SECTION NAME : 1/IntraOp Case Record -- PAGE : МАРИНАB Prep Surgical Clippers: N By: Area: SECTION NAME : 1/IntraOp Case Record -- PAGE : ORAlbinoC Moderate Sedation 1 Clinical Alarms On? O2 Therapy: L/Min: IV Fluid: TOTAL ML: Notes: Notes: SECTION NAME : 1/IntraOp Case Record -- PAGE : ORAlbinoE Post Procedure Assess 1 Post Procedure Assessment / Monitoring: Motor Activity: 2 - Active motion, voluntary or on command 1 - Weak motion, voluntary or on command 0 - No motion 0: 5: 10: 15: Out: Respiration: 2 - Cough on command or cries 1 - Maintains airway without support 0 - Requires airway maintenance 0: 5: 10: 15: Out: Systolic Blood Pressure: 2 - Within 20 mmHg of pre-sedation level 1 - Within 20-50 mmHg of pre-sedation level 0 - Within > 50 mmHg of pre-sedation level 0: 5: 10: 15: Out: SECTION NAME : 1/Intra Case Record -- PAGE : OR09F Post Procedure Assess 2 Consciousness: 2 - Fully awake or easily aroused 1 - Responds to stimuli, protective reflexes intact 0 - No response or no protective reflexes 0: 5: 10: 15: Out: Oxygen Saturation: 2 - Able to maintain saturation greater than 92% on room air 1 - Needs O2 to maintain saturation greater than 90% 0 - O2 saturation less than 90% even with O2 0: 5: 10: 15: Out: Total Post: Patient may be discharged when the score is 8-10, with no 0 (zero) in any category Flatuence Ground pad clear post procedure: EBL (ml): LESS THAN 1ML SECTION NAME : 1/Intra Case Record -- PAGE : SHERMAN Specimen Manage specimen handling and disposition: Y Specimen: N Specimen Sent To: Specimen Description: Notes: SECTION NAME : 1/Intra Case Record -- PAGE : OR10B Culture Culture: N Culture Site: Culture Type: SECTION NAME : 1/Intra Case Record -- PAGE : OR11A Meds Time: Med/Irrigant/Hemostasis: Dosage: Route: VO / RBO / Given B y: BSS Balanced Salt Solution 500ml RICHA Tetracaine 0.5% 1 gtt LIDO1 Lidocaine 1% 3ml Medications On/Off Field Labeled: YES Notes: Xylocaine 1% 3ml topical, BSS 500ml irrigation per Dr. Moncada intraoperatively tet racaine 0.5% 1 gtt to operative eye per RN prior to prep SECTION NAME : 1/Intra Case Record -- PAGE : OR11A1 Meds2 Time: VO / RBO / Given By: SECTION NAME : 1/Intra Case Record -- PAGE : OR11B XRay X-Rays Taken: N X-Ray Type: Indication for X-Ray: Patient Shield: Other Indication for X-Ray: SECTION NAME : 1/Intra Case Record -- PAGE : ORAlonzoA Cautery Grounding Pad Applied: N/A Cautery Pad Placement: If Other, detail: ESU Number: Cut: Coagulation: Blend: Bipolar: SECTION NAME : 1/IntraOp Case Record -- PAGE : OR12B Special Equipment Special Equipment Used: EYE Eye Microscope MARIIA [employer] PHACO Phaco Machine Comment: provided by [employer] provided by [employer] Notes: Thermal Unit: Temperature: N/A SECTION NAME : 1/Intra Case Record -- PAGE : OR12B Tourniquet 2 Tourniquet #2 Site: NONE None Pressure (mm Hg): Tourniquet Letter: Tourniquet Padded: Tourniquet Applied By: Patient Blood Pressure: #2 Inflated: #2 Deflated: Notify Surgeon After 60 Minutes-Time: After 1 Hour, Notify Surgeon Every 30 Min-Time: SECTION NAME : 1/IntraOp Case Record -- PAGE : OR13A Tourniquet 1 Tourniqet #1 Site NONE None Pressure (mm Hg): Tourniquet Letter: Tourniquet Applied By: Patient Blood Pressure: #1 Inflated: #1 Deflated: Notify Surgeon After 60 Minutes-Time: After 1 Hour, Notify Surgeon Every 30 Min- Time: Notes: SECTION NAME : 1/IntraOp Case Record -- PAGE : ORMahsaA Drains Tube /Drain/ Catheter: Size: Location: N N Inserted By (if applicable): OR Drainage Detail: Notes: SECTION NAME : 1/IntraOp Case Record -- PAGE : ORLisa Packing Packing: NONE None Site: SECTION NAME : 1/IntraOp Case Record -- PAGE : ORMyraA Closing PreOp Diagnosis: LEFT EYE CATARACT Post Op Diagnosis: Same Operation: LEFT EYE phacoemulsification of cataract with intraocular lens implant Notes: SECTION NAME : 1/IntraOp Case Record -- PAGE : ORMyraB Dressing Evaluate PostOp Skin: Y Post Op Skin Condition: unchanged Dressing: NONE None Comment: SECTION NAME : 1/IntraOp Case Record -- PAGE : OR16A Count Perform required counts: Y Initial Count Completed Prior to Patient in OR: N/A White Board Used to Document Counts: Y Surgicount Used: NO No Surgeon Notified of Counts: Y If Counts Unresolved, X-Ray Taken: NA EBL (ml): LESS THAN 1ML Inst intact @ closing to best of our knowledge: Y Yes Notes: CONDITION AT DISCHARGE-STABLE COMPLICATIONS-NONE DEBRIEFING DONE ALL PARTICIPATE D SECTION NAME : 1/Intra Case Record -- PAGE : OR16B Sponge Count Count Description: INITIAL Initial Count END End of Procedure Sponge: N/A N/A SECTION NAME : 1/Intra Case Record -- PAGE : OR16C Sharp Count Count Description: INITIAL Initial Count END End of Procedure Sharps: N/A N/A SECTION NAME : 1/Intra Case Record -- PAGE : OR16D Instrument Count Count Description: INITIAL Initial Count END End of Procedure Instruments: N/A N/A SECTION NAME : 1/IntraOp Case Record -- PAGE : OR16E Patient Discharged To Transport Via: CART Cart with Side Rails Up X2 [place] [facility] [place]: : Time: SECTION NAME : 1/IntraOp Case Record -- PAGE : OR17 Family Notification Provide Status Reports to Family/Support Person: N/A Notification Time: Notes: SECTION NAME : 1/IntraOp Case Record -- PAGE : OR18A New Laser Form 8.15.12 Initials verify that LASER SAFETY CHECKLIST was reviewed and is complete OR Nurse Initials Laser Type: Hertz Setting: Joules Setting: Fisher: Total Pulses: Total Joules: Total Fisher: Total Laser Time: Laser Type 2: Hertz Setting 2: Joules Setting 2: Fisher 2: Total Pulses 2: Total Joules 2: Total Laser Time 2: SECTION NAME : 1/IntraOp Case Record -- PAGE : OR19A Blood Pressure Time: BP Systolic BP Diastolic NA NA Is This Case Local? N Notes: SECTION NAME : 1/IntraOp Case Record -- PAGE : OR19B Respiratory_Heart Rate Time: RR: HR: TALISHA NA SECTION NAME : 1/IntraOp Case Record -- PAGE : OR19C Temp_O2Sat Time: Temp: O2sat: NA NA SECTION NAME : 1/IntraOp Case Record -- PAGE : OR19D LOC Time: LOC: SECTION NAME : 1/IntraOp Case Record -- PAGE : OR19D Pain Time: Pain (0-10): SECTION NAME : 1/IntraOp Case Record -- PAGE : OR20 Implants # Qty: Reference Number: # Qty: Consignment Implant Description/Size 1 1 Lan Lens 970C C. Flex Aspheric 24.0D # Lot #: Serial #: Reference # Location: 1 [id number] RIGHT EYE # Work From Home: Date: Wasted: 10/10/2020 Notes: Lan Lens SECTION NAME : 1/IntraOp Case Record -- PAGE : OR22A Tissue Log A Corporate Giving Manager From Lab to OR: Tissue Description Tissue Disposition: NONE None Time Implanted: Tissue Type: SECTION NAME : 1/IntraOp Case Record -- PAGE : OR22B Tissue Log B Tissue Package Condition: Package Opened By: Tissue Prepared By: Tissue Prepared According to Package Insert?: Implant Card Completed and Mailed?: SECTION NAME : 1/IntraOp Case Record -- PAGE : OR22C Tissue Log C Rehydrating Solution: Thawing Solution: Time in Solution: Solution Temp Celsius: Duration in Solution: SECTION NAME : 1/IntraOp Case Record -- PAGE : OR21 CSection C Section Called: Heart Tones Prior to Surgery: Uterine Scoring: Delivery Time: Sex: Delivery Assistance: Notes: Source: [facility] Document Id: [id number] Op Note - Jaskaran Pederson CRNA - 07/24/2016 11:05 AM CDT ANES, Phase II Recovery POSTANESTHESIA ASSESMENT T, P, RR, and SpO2 VITAL SIGNS Temperature Core: 36.5 Peripheral Pulse Rate: 85 Respiratory Rate: 16 SpO2: 97 - RA BP BLOOD PRESSURE Systolic Blood Pressure: 147 Diastolic Blood Pressure: 77 Cardiovascular Status [X] Hemodynamics (HR and BP) acceptable [_] Hemodynamics (HR and BP) unacceptable requiring ongoing treatment Respiratory Support [X] Patent airway with unassisted ventilation [_] Patent airway with the need for PAP therapy (CPAP, BPAP) [_] Mechanically ventilated Oxygen Requirements [X] Room air [_] Nasal cannula [_] Closed face mask [_] Assisted ventilation (noninvasive or mechanical) with supplemental oxygen [_] Other: _ Level of Consciousness [X] Awake [_] Sedated, but awakens easily [_] Sedated, difficult to awake, patient unable to participate in evaluation [_] Unconscious, patient unable to participate in evaluation Temperature [X] Normothermic [_] Hypo or hyperthermic requiring ongoing treatment Pain [X] Adequately controlled and/or at baseline [_] Requiring further management [_] Unable to be assessed Nausea/Vomiting [X] No [_] Yes, treated as necessary Intravascular Volume Status [X] Euvolemic [_] Hypo or hypervolemic requiring ongoing treatment Anesthesia Observations [X] None apparent [_] Refractory nausea and vomiting [_] Dental/Oral injury [_] Eye injury [_] New or changed neurologic deficit [_] Other (Document in comments) Disposition [_] General care unit [_] Monitored care unit (ICU, PCU, ED, etc.), expectation for recovery time deferred to receiving unit [X] Discharged home [_] Other: _ Comments _ Electronically Signed By: JASKARAN PEDERSON CRNA On: 07/24/2016 11:06 AM Source: [email or web address] Document Id: [id number] Op Note - Jaskaran Pederson CRNA - 07/24/2016 9:34 AM CDT ANES, Preanesthesia Evaluation STATUS [X] FINALIZED [_] PROCEDURE CANCELLED PROCEDURE DATE 07/24/2016 ASA PHYSICAL STATUS * 3 ANESTHETIC / SEDATION PLAN * [_] General Anesthesia [_] Combined General / Regional Anesthesia [_] Regional Anesthesia [X] Monitored Anesthesia Care [_] Sedation Care - RN COMMENTS _ IDENTIFICATION [X] Patient identified * [X] Procedure Verified * [X] Site Verified * NPO STATUS [X] NPO Verified PHYSICAL ASSESSMENT VITAL SIGNS Temperature Core: 36.3 Low Peripheral Pulse Rate: 75 Respiratory Rate: 16 SpO2: 98 BLOOD PRESSURE Systolic Blood Pressure: 158 High Diastolic Blood Pressure: 75 Airway * Thyromental Distance: 3 Neck ROM: Limited Jaw Opening: Adequate Mallampati Classification: 2 Dentition: Fair Cardiovascular * S1, S2, No murmur, rubs or gallops Pulmonary * Clear Bilaterally Other _ LABS WITHIN 72 HOURS No qualifying data available. No qualifying data available. ADDITIONAL FINDINGS OR HISTORY _ HISTORY AND PHYSICAL UPDATE [X] Assessment of patient history, patient exam, medications, allergies and previous anesthetic history reviewed on this date. * [X] Patient was seen, evaluated and approved for anesthesia / sedation. * Select one of the following: * [X] Discussed risks / benefits / alternatives of anesthesia / sedation and obtained informed consent. [_] Emergency exception: consent implied due to medical emergency and inability to obtain timely consent from the patient or an alternative decision maker PREANESTHESIA EVALUATION PROCEDURE INFORMATION Proceduralist Dr. Moncada Pre-Procedure Indication Cataract Procedure Planned Left Phaco w IOL Anesthesia Planned MAC HEIGHT AND WEIGHT MEASUREMENTS Height: 165 Actual Weight: 65.7 ALLERGY LIST Septra zinc acetate containing compounds (rash) PROBLEM LIST Anemia Pers Hx Arthritis Inflammatory Cerumen Impacted NOS Cervical Disc Disorder With Myelopathy Chronic Kidney Disease (CKD) Stage 3 GFR 30-59 Chronic Renal Failure Stage IV GFR 15-29 Cough NOS Depression NOS Disease Gastroesophageal Reflux (GERD JAMEY) Hearing Disorder NOS Hyperlipidemia Mixed Hypertension (HTN) Essential NOS Lumbar Disc Disorder With Myelopathy Osteoporosis NOS Pain Back NOS Pain Musculoskeletal NOS Rash NOS Regurgitation Tricuspid NOS Sclerosis Aortic Valve Venous Disease OUTPATIENT MEDICATION LIST Medication List Active Medications Ordered acetaminophen: 650 mg, 2 tab(s), PO, q4hr, PRN: Pain. cyclopentolate ophthalmic: 1 drop(s), Eye(Operative), PREOP. ketorolac ophthalmic: 1 drop(s), Eye(Operative), Once. ketorolac ophthalmic: 1 drop(s), Eye(Operative), PREOP. moxifloxacin ophthalmic: 1 drop(s), Eye(Operative), Once. 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 phenylephrine ophthalmic: 1 drop(s), Eye(Operative), PREOP. prednisoLONE ophthalmic: 1 drop(s), Eye(Operative), Once. sodium chloride 0.9% 1,000 mL: 100 mL/hr, IV. tropicamide ophthalmic: 1 drop(s), Eye(Operative), PREOP. Prescribed ranitidine: 150 mg, 1 tab(s), PO, Bedtime, for 42 day(s), 42 tab(s), 3 Refill(s). simvastatin: 10 mg, 1 tab(s), PO, Bedtime, for 90 day(s), 90 tab(s), 2 Refill(s). Documented aspirin: 81 mg, 1 tab(s), PO, Daily. calcitonin: 1 spray(s), Nostrils(Alternating), Daily, 4 mL. cholecalciferol: 1,000 IntU, 1 tab(s), PO, Daily. multivitamin with minerals: 1 tab(s), PO, Daily. orphenadrine: 100 mg, 1 tab(s), PO, PRN. raloxifene: 60 mg, 1 tab(s), PO, Daily, 90 tab(s), 3 Refill(s). triamcinolone topical: 1 tessie, Topical, 2xDay, prn. Medications Inactivated in the Last 72 Hours lidocaine: 5 mL, Pyxis, Once. tetracaine ophthalmic: 1 drop(s), Eye(Operative), PREOP. PROCEDURE LIST Colonoscopy Mammogram Cholecystectomy Appendectomy Lumpectomy LAB AND DIAGNOSTICS (selected) CBC WBC: 6.2 01/06/16 RBC: 4.30 01/06/16 Hgb: 12.7 01/06/16 Hct: 38.6 01/06/16 Platelet: 194 01/06/16 BMP Sodium Lvl: 140 01/06/16 Potassium Lvl: 3.8 01/06/16 Chloride: 104 01/06/16 CO2: 24 01/06/16 Glucose Lvl: 105 01/06/16 Creatinine: 1.1 01/06/16 Calcium Lvl: 9.2 01/06/16 BUN: 15 01/06/16 EGFR (MDRD): 47.9 Low 01/06/16 EGFR (MDRD): 58.1 Low 01/06/16 AGAP: 12 01/06/16 LFT No qualifying data available. INR INR: 1.0 10/19/14 HgbA1c No qualifying data available. Thyroid No qualifying data available. ECG _ Other _ DATE OF HISTORY AND PHYSICAL EXAM 07/23/2016 CURRENT / PAST MEDICAL AND SURGICAL HISTORY [X] Within Normal Limits Unless Otherwise Specified Cardiovascular [_] Functional Capacity less than 4 METS [_] Symptoms on Exertion [X] Hypertension [X] Hyperlipidemia/Dyslipidemia [_] Coronary Artery Disease [_] History of Myocardial Infarction [_] Peripheral Vascular Disease Respiratory / Pulmonary [_] Nicotine/Tobacco use [_] Asthma [_] Chronic Obstructive Lung Disease [_] Obstructive Sleep Apnea Renal / Urinary and Reproductive [X] Chronic or Acute Kidney Disease Endocrine [_] Diabetes [_] Hypothyroidism Neurologic [_] Cerebrovascular Disease [_] History of Stroke [_] History of Seizure [_] Parkinsons Disease Psychiatric / Social [_] Alcohol/Other Substance Abuse [X] Depression/Anxiety Musculoskeletal [X] Degenerative Joint Disease/Osteoarthritis Gastrointestinal / Hepatobiliary [X] Gastroesophageal Reflux Disease Hematology [_] Anemia [_] Increased Risk of Hemorrhage Obstetric / Gynecologic _ ENT [_] History of airway surgery Infectious Disease [_] MRSA Anesthesia [_] Malignant Hyperthermia [_] Pseudocholinesterase Deficiency [_] History of Difficult Airway [_] History of PONV Other _ Electronically Signed By: JASKARAN PEDERSON CRNA On: 07/24/2016 09:41 AM Source: [facility] Document Id: [id number] documented in this encounter Miscellaneous Notes Miscellaneous - Michelle Tate, RXeniaN. - 07/24/2016 11:35 AM CDT Adult Postprocedure Assessment Adult Postprocedure Assessment Entered On: 07/24/2016 11:42 CDT Performed On: 07/24/2016 11:35 CDT by MICHELLE TATE RN Vital Signs Limb Alert Question : No Peripheral Pulse Rate : 77 /min Respiratory Rate : 16 /min Systolic Blood Pressure : 147 mmHg (HI) Diastolic Blood Pressure : 79 mmHg NIBP Mean : 102 mmHg BP Location : Left upper extremity SpO2 : 99 % Oxygen Therapy : Room air Height : 65.7 cm(Converted to: 2 ft 2 inch(es)) MICHELLE TATE RN - 07/24/2016 11:35 CDT General Level of Consciousness : Alert Orientation : Oriented x 3 Skin Color : Normal for ethnicity Skin Description : Dry Skin Temperature : Warm Pain Symptoms : Yes MICHELLE TATE RN - 07/24/2016 11:35 CDT Pain Scale Pain Scale Verbal 0-10 : Open MICHELLE TATE RN - 07/24/2016 11:35 CDT Pain Pain Assessment Grid Pain 1 Location : Eye Laterality : Left Intensity : 5 Acceptable Intensity : 5 MICHELLE TATE RN - 07/24/2016 11:35 CDT Respiratory Respiratory Patient Stated Symptoms : None MICHELLE TATE RN - 07/24/2016 11:35 CDT GI/ Nausea Symptoms : No MICHELLE TATE RN - 07/24/2016 11:35 CDT Incision/Wound Incision/Wound Care Grid Activity : Assessed Wound Type : Surgical incision Location : Eye Laterality : Left Drainage : Other: tears Drainage Amount : Small MICHELLE TATE RN - 07/24/2016 11:35 CDT Peripheral IV Peripheral IV Assess/Intervention Grid Peripheral IV #1 Peripheral IV #2 IV Activity : Discontinue, Assessment Removal : Catheter intact Catheter intact Date of Insertion : 07/24/2016 CDT 07/24/2016 CDT Discontinued Date : 07/24/2016 CDT 07/24/2016 CDT IV Site : Hand Antecubital Laterality : Left Left Catheter Size : 22 22 Catheter Type : Protective Protective Site Condition : No complications Drainage Description : None MICHELLE TATE RN - 07/24/2016 11:35 CDT MICHELLE TATE RN - 07/24/2016 11:35 CDT I&O Oral Intake : 240 mL (Comment: drinking water ad anu [MICHELLE TATE RN - 07/24/2016 11:35 CDT] ) Other Intake : 800 mL (Comment: NaCl [MICHELLE TATE RN - 07/24/2016 11:35 CDT] ) MICHELLE TATE RN - 07/24/2016 11:35 CDT Nutrition Morning Snack : 100 % MICHELLE TATE RN - 07/24/2016 11:35 CDT Activity Activity Status ADL : Ambulating in [place], Bathroom privileges Activity Assistance : Stand-by assistance Ambulation Distance : 10 m Ambulation Patient Effort : Good MICHELLE TATE RN - 07/24/2016 11:35 CDT PARSAP Activity Status : Moves 4 extremities voluntarily or on command Dressing : None Respiratory Component : Able to deep breathe and cough freely Pain : Pain mild, handled by oral medication Circulation Component : BP 20% of preanesthetic level Ambulation : Able to stand up and walk straight Consciousness : Fully awake Fasting and Feeding : Able to drink fluids Oxygen Saturation - Sedation : Can maintain > 92% on room air Urine Output, PARSAP : Has voided PARSAP Score : 19 MICHELLE TATE RN - 07/24/2016 11:35 CDT Education General Patient Education [employer] Topics : Activity limitations/expectations, Bathing/Hygiene, Discharge instructions/Medication list,Importance of follow-up visits, Medication dosage, route, scheduling, Pain Management, Safety, fall,Surgery, When to call health care provider, Wound care Individuals Taught : Patient, Son Barriers to Learning : None evident Teaching Method : Explanation, Printed materials Teaching Evaluation : Able to teach back, Verbalizes understanding MICHELLE TATE RN - 07/24/2016 11:35 CDT [facility] Document Id: [id number] CDT!92 Miscellaneous - Cory, Historical Provider Ser - 07/24/2016 11:35 AM CDT Coding Summary-Paper Based CODING DATE: 07/29/2016 FINAL [facility] STATUS: * Discharged to Home or Self Care PAYOR: Medicare APC DESCRIPTION 5491 Level 1 Intraocular Procedures ADMIT DX: REASON FOR VISIT DX: FINAL DX: PRINCIPAL: H26.9 Unspecified cataract SECONDARY: PYMT PROC APC STAT DESCRIPTION DOCTOR NAME DATE 48421 549 J1 CATARACT REMOVAL BERTO MONCADA MD 07/24/2016 INSERTION OF LENS LT LEFT SIDE (USED TO IDENTIFY PROCEDURES PERFORMED ON THE LEFT SIDE OF THE BODY) NOTE: The code number assigned matches the documented diagnosis and / or procedure in the patient's chart. However, the narrative phrase printed from the coding software may appear abbreviated, or result in slightly different terminology. Coded By: DARRICK FAGAN Date Saved: 07/29/2016 03:03 pm Source: [email or web address] Document Id: [id number] Miscellaneous - Michelle Tate, R.N. - 07/24/2016 11:05 AM CDT Adult Postprocedure Assessment Adult Postprocedure Assessment Entered On: 07/24/2016 11:13 CDT Performed On: 07/24/2016 11:05 CDT by MICHELLE TATE RN Vital Signs Temperature Core : 36.5 DegC(Converted to: 97.7 DegF) Limb Alert Question : No Peripheral Pulse Rate : 85 /min Respiratory Rate : 16 /min Systolic Blood Pressure : 147 mmHg (HI) Diastolic Blood Pressure : 77 mmHg NIBP Mean : 100 mmHg BP Location : Left upper extremity SpO2 : 97 % Height : 65.7 cm(Converted to: 2 ft 2 inch(es)) MICHELLE TATE RN - 07/24/2016 11:07 CDT General Level of Consciousness : Alert Orientation : Oriented x 3 Skin Color : Normal for ethnicity Skin Description : Dry Skin Temperature : Warm Pain Symptoms : Yes MICHELLE TATE RN - 07/24/2016 11:07 CDT Pain Scale Pain Scale Verbal 0-10 : Open MICHELLE TATE RN - 07/24/2016 11:07 CDT Pain Pain Assessment Grid Pain 1 Location : Eye Laterality : Left Intensity : 2 Acceptable Intensity : 5 MICHELLE TATE RN - 07/24/2016 11:07 CDT Respiratory Respiratory Patient Stated Symptoms : None MICHELLE TATE RN - 07/24/2016 11:07 CDT GI/ Nausea Symptoms : No MICHELLE TATE RN - 07/24/2016 11:07 CDT Incision/Wound Incision/Wound Care Grid Activity : Assessed Wound Type : Surgical incision Location : Eye Laterality : Left Drainage : Other: tear Drainage Amount : Small MICHELLE TATE RN - 07/24/2016 11:07 CDT Peripheral IV Peripheral IV Assess/Intervention Grid Peripheral IV #1 Peripheral IV #2 IV Activity : Assessment Removal : Catheter intact Catheter intact Date of Insertion : 07/24/2016 CDT 07/24/2016 CDT Discontinued Date : 07/24/2016 CDT 07/24/2016 CDT IV Site : Hand Antecubital Laterality : Left Left Catheter Size : 22 22 Catheter Type : Protective Protective Site Condition : No complications Drainage Description : None Dressing/ Activity : Dry, Transparent Flow/ Patency : No complications IV Equipment/Supplies : Normal saline back up bag MICHELLE TATE RN - 07/24/2016 11:07 CDT MICHELLE TATE RN - 07/24/2016 11:07 CDT I&O Oral Intake : 30 mL (Comment: tolerating sips of water [MICHELLE TATE RN - 07/24/2016 11:07 CDT] ) MICHELLE TATE RN - 07/24/2016 11:07 CDT Nutrition Morning Snack : 50 % (Comment: blueberry muffin [MICHELLE TATE RN - 07/24/2016 11:07 CDT] ) MICHELLE TATE RN - 07/24/2016 11:07 CDT Activity Patient Position : High [place]iver[place] MICHELLE TATE RN - 07/24/2016 11:07 CDT Source: [email or web address] Document Id: [id number] CDT!71 Miscellaneous - Michelle Tate R.N. - 07/24/2016 8:45 AM CDT Height/Length Height/Length Entered On: 07/24/2016 8:46 CDT Performed On: 07/24/2016 8:45 CDT by MICHELLE TATE RN Height/Length Height : 65.7 cm MICHELLE TATE RN - 07/24/2016 8:45 CDT Source: [email or web address] Document Id: [id number] CDT!3 documented in this encounter Plan of Treatment Not on filedocumented as of this encounter Visit Diagnoses Not on filedocumented in this encounter
--- OUTSIDE RECORDS SUMMARY | 2022-01-19 14:57 | XMS_ITS | Encounter Summary ---
:1935 Author Organization [facility] Address [address] [place] [address] Care Team Providers Name Role Phone Unavailable Primary Care Provider Unavailable Encounter Details Date Type Department Care Team Description 03/15/2021 Admin Visit Urgent Care, [facility], in [place], [place] [address] [place], [place] [id number] Social History Tobacco Use Types Packs/Day Years [...] on file documented as of this encounter Plan of Treatment Not on filedocumented as of this encounter Visit Diagnoses Not on filedocumented in this encounter Additional Health Concerns Infection Onset Date Last Indicated Resolved Time COVID19 Pending 03/15/2021 03/15/2021 03/16/2021 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
--- OUTSIDE RECORDS SUMMARY | 2022-01-19 14:57 | XMS_ITS | Encounter Summary ---
:1935 Author Organization [facility] Address [address] [place] [address] Care Team Providers Name Role Phone Barbra Ryder M.D., Vinnie Vasquez Primary Care Provider Reason for Visit Reason Comments Earache ck ears; Left worse than Rig ht; sx's started last noct Encounter Details Date Type Department Care Team Description 02/23/2019 Office Visit Urgent Care, [facility] Vinnie Belle Jr., M.D. [address] [place] [address] Otitis Externa Acute Left (Primary Dx); [place], in [place], Ralf, VICKIE Bowen, C.N.P., D.N.P. [address] [place] [phone] Cerumen Impacted Left [place] [address] [place] [phone] Social History Tobacco Use Types Packs/Day Years Used Date Smoking Tobacco: Former Cigarettes 0 Smokeless Tobacco: Never Sex Assigned at Date Recorded Not on file documented as of this encounter Last Filed Vital Signs Vital Sign Reading Time Taken Comments Blood Pressure 149/63 02/23/2019 10:57 AM MICROBIAL SPECIALIST Pulse 68 02/23/2019 10:57 AM MICROBIAL SPECIALIST Temperature 36.3 ??C (97.3 ??F) 02/23/2019 10:57 AM MICROBIAL SPECIALIST Respiratory Rate 18 02/23/2019 10:57 AM MICROBIAL SPECIALIST Oxygen Saturation 98% 02/23/2019 10:57 AM MICROBIAL SPECIALIST Inhaled Oxygen Concentration - - Weight 67.3 kg (148 lb 5.9 oz) 02/23/2019 10:57 AM MICROBIAL SPECIALIST Height - - Body Mass Index 23.02 11/10/2016 5:05 AM CDT documented in this encounter Patient Instructions Patient InstructionsSaAndrés burgos APRN, C.N.P., Elis.N.P. - 02/23/2019 11:00 AM CST Home care and follow up as discussed. OBIAL SPECIALIST documented in this encounter Progress Notes Andrés Arambula APRN, C.N.P., ApNXeniaP. - 02/23/2019 11:00 AM CST SUBJECTIVE CHIEF COMPLAINT / REASON FOR VISIT Earache (ck ears; Left worse than Right; sx's started last noct). HISTORY OF PRESENT ILLNESS Karoline Nuñez is a 83 y.o. female who presents for evaluation of left sided ear. She reports having slight pain in the left ear throughout the yesterday. The pain woke her up from sleep last night. She last took 2 ibuprofen yesterday night. She reports noticing some discharge when she cleaned herear with a Q-tip this morning. She has not had any fevers. No recent URI symptoms. She has hearing aids in bilateral ears. REVIEW OF SYSTEMS A brief review of systems was negative except for that mentioned in the history of present of illness. The patient's social history, medical history, and home medications were reviewed in the electronic medical record. ALLERGIES/CONTRAINDICATIONS Allergies Allergen Reactions ??? Iron Rash ??? Sulfamethoxazole-Trimethoprim Rash ??? Zinc Acetate Rash OBJECTIVE VITAL SIGNS BP 149/63 (BP Location: Right arm, Patient Position: Sitting, Cuff Size: Regular) Comment (Cuff Size): long Pulse 68 Temp 36.3 ??C (Temporal) Resp 18 Wt 67.3 kg SpO2 98% BMI 23.02 kg/m?? PHYSICAL EXAMINATION General: Alert, no acute distress. HEENT: Head: Atraumatic, nontender. Eyes: Sclerae and conjunctivae clear. PERRLA. External ocular movements intact. Ears: No pre- or postauricular lymphadenopathy or erythema. Tragus tenderness noted on the left. External auditory canal on the left is partially obstructed with cerumen. There is erythema and tenderness noted to the left EAC. Right EAC and TM normal. Nose/Face: Patent. Mouth/Throat: Oral cavity is adequately hydrated. Respiratory: Effort is easy. Skin: [place], warm, with good turgor. No rash or lesions. DIAGNOSTICS No results found for this or any previous visit (from the past 24 hour(s)). ASSESSMENT / PLAN #1 Otitis Externa Acute Left #2 Cerumen Impacted Left Other orders - carbamide peroxide 6.5 % otic solution 10 drop (DEBROX); 10 drop, left ear, Once, Thu02/23/19 at 1115, For 1 dose - ofloxacin (OCUFLOX) 0.3 % ophthalmic solution; Administer 5 drops into the left ear 2 (two) times a day for 7 days., Starting Thu02/23/2019, Until Thu03/02/2019, Normal Ear lavage by medical reimbursement specialist completed with some returns. Patient tolerated procedure well. Cerumen removed manually with curette. Both EACs and TMs easily visualized. Cerumen impaction resolved. Hearing improved. Avoid Q-tip use in ear canal. Will treat with ofloxacin for the left otitis externa.hearing improved and pain mostly resolved after cerumen removal. Follow up as needed. Patient verbalizes understanding and acceptance of this plan of care and denies further needs at this time. Electronically signed by: Andrés Arambula APRN, C.N.P., D.N.P. 02/23/19 12:12 PM OBIAL SPECIALIST documented in this encounter Plan of Treatment Not on filedocumented as of this encounter Visit Diagnoses Diagnosis Otitis Externa Acute Left - Primary Cerumen Impacted Left documented in this encounter Administered Medications Inactive Administered Medications - up to 3 most recent administrations Medication Order MAR Action Action Date Dose Rate Site carbamide peroxide 6.5 % otic Given 02/23/2019 11:29 AM MICROBIAL SPECIALIST 10 d rops solution 10 drop (DEBROX) 10 drop, left ear, Once, On Thu02/23/19 at 1115, For 1 dose documented in this encounter Care Teams Railway Signal Technician Relationship Specialty Start Date End Date Vinnie Belle Jr., M.D. PCP - General 09/25/16 02/24/19 [address] [place] [address] documented as of this encounter
--- OUTSIDE RECORDS SUMMARY | 2022-01-19 14:57 | XMS_ITS | Encounter Summary ---
:1935 Author Organization [facility] Address [address] [place] [address] Care Team Providers Name Role Phone Unavailable Primary Care Provider Unavailable Encounter Details Date Type Department Care Team Description 08/21/2016 Hospital Encounter HX [facility] MAQN Berto Lundy M.D. [address] [place] [address] (Wo rk) Social History Tobacco Use Types Packs/Day Years Used Date Smoking Tobacco: Former Sex Assigned at Date Recorded Not on file documented as of this encounter Last Filed Vital Signs Vital Sign Reading Time Taken Comments Blood Pressure 150/73 08/21/2016 12:00 PM CDT Pulse 68 08/21/2016 12:00 PM CDT Temperature - - Respiratory Rate 16 08/21/2016 12:00 PM CDT Oxygen Saturation - - Inhaled Oxygen Concentration - - Weight 66.8 kg (147 lb 4.3 oz) 08/21/2016 9:29 AM CDT Height 165 cm (5' 4.96) 08/21/2016 12:00 PM CDT Body Mass Index 24.54 08/21/2016 9:29 AM CDT documented in this encounter Medications at Time of Discharge Medication Sig Dispensed Refills Start Date End Date cholecalciferol (VITAMIN Take 1,000 Units by 0 D3) 1,000 Unit capsule mouth daily. geriatric Take 1 tablet by 0 01/30/2015 npslmrlu-ygce-venl tablet mouth daily. simvastatin (ZOCOR) 10 mg Take 10 mg by mouth 0 0 10/28/2014 tablet at bedtime. Vanicream-plasticized Apply 1 application 0 06/17 base 80-20 % cream with topically 3 (three) triamcinolone acetonide times a day. 40 mg/mL suspension raNITIdine (ZANTAC) 150 150 mg. 0 10/28/2014 0 07/23/2020 mg tablet documented as of this encounter H&P Notes Britney Baldwin Jr., M.D. - 08/21/2016 10:15 AM CDT [id number] CHIEF COMPLAINT/REASON FOR VISIT Surgery. HISTORY OF PRESENT ILLNESS This is a 80-year-old female, admitted at this time for a right cataract procedure with Dr. Moncada at [facility]. See Dr. Moncada's consultative note. It should be noted that the patient had a left cataract procedure at [place] on 07/24/2016. Patient subsequently developed a cystitis and her 2nd surgery for the left side was postponed until now. PAST MEDICAL/SURGICAL HISTORY Allergies: Sulfa and iron. Fractures: None. Transfusions: None. Surgeries: Left cataract procedure 07/24/2016, tonsillectomy [facility], open cholecystectomy 1985 at<__IM_1: BLANK 01:45__> , left breast biopsy which was benign in October 2000, appendectomy at 14years old, left bunion and hammertoe procedure in July 2001. Diseases: Usual childhood diseases. The patient has been treated for chronic renal disease and beingfollowed by Dr. Dent in [place]. She has a left renal stone. She has reflux disease and hyperlipidemia in good control. MEDICATIONS Aspirin 81 EC 1 daily. Simvastatin 20 mg 1/2 pill daily. Raloxifene 60 mg 1 daily. Ranitidine 150 mg 1 daily for GERD. Centrum Silver 1 daily. Vitamin D3 1 daily (1000 units). FAMILY HISTORY Patient's father age 89 with congestive heart failure and had arteriosclerotic heart disease. Patient's mother at age 85 of leukemia. One sister also of leukemia and diabetes at age 70. One brother had a stroke. Another brother of a fractured neck in motor vehicle accident. No tuber culosis in the family. SYSTEMS REVIEW NEUROLOGICAL: No TIA symptoms, syncope, seizures. CARDIAC: No angina, hypertension essentially non-existent. PULMONARY: Normal. Patient does not smoke currently. She did smoke about 2 to 3 cigarettes a day for30 years. GI: No rectal bleeding. : No vaginal bleeding. PHYSICAL EXAMINATION GENERAL APPEARANCE: A 80-year-old female, in no acute distress. VITAL SIGNS: Temperature 97.0, pulse 142/69, height 5 feet 5, weight 147 pounds, O2 sat 99% at ambient air. HEAD AND HAIR: Normocephalic. EYES: PERRLA with EOM normal and patient has right cataract present. EARS/NOSE/THROAT: TMs and oropharynx are benign. NECK: Supple with no cervical or clavicular adenopathy and thyroid small and symmetrical without nodules. BREASTS: No mass. HEART: Normal sinus rhythm, without murmur or cardiomegaly. CHEST/LUNGS: Clear. ABDOMEN: No abdominal mass, tenderness, organomegaly noted. GENITOURINARY: Not examined. RECTAL: Not examined. BONES/JOINTS: No cyanosis, clubbing, edema, deformity. NERVOUS SYSTEM: Physiological. Mental state oriented x3. IMPRESSION/REPORT/PLAN Provisional diagnosis: Cataract surgery on the right side. Britney Baldwin M.D./pos Electronically Signed By: BRITNEY BALDWIN MD On: 08/22/2016 10:11 PM Source: [facility] MHSDOLBEYNONRADSYS Document Id: [id number] documented in this encounter Procedure Notes Nan Diaz, R.N. - 08/21/2016 9:29 AM CDT Preprocedure Checklist Document Has Been Updated Preprocedure Checklist Entered On: 08/21/2016 9:35 CDT Performed On: 08/21/2016 9:29 CDT by NAN DIAZ RN Checklist Last Fluid Intake : 08/20/2016 22:00 CDT Last Food Intake : 08/20/2016 22:00 CDT NAN DIAZ RN - 08/21/2016 9:29 CDT Surgery Prep Grid Contacts/Glasses Removed : Yes Dentures Removed : NA (Comment: has dentures [NAN DIAZ RN - 08/21/2016 9:29 CDT] ) Hairpins/Hairpiecies Removed : NA Hearing Aid Removed : NA Home Prep Complete : Yes Jewelry/Piercing Removed : Yes Makeup/Nail Khmer Removed : Yes Oral Hygiene : Yes Preop Scrub AM of Surgery : Yes Preop Scrub Night Prior to Surgery : Yes Prosthesis Removed : NA Tampon Removed : NA Verified - No hair products used : Yes Voided telephone sterilizer to procedure : Yes Wearing Patient Gown : Yes NAN DIAZ RN - 08/21/2016 9:29 CDT Patient Rights Grid Blood Consent Signed : Yes Surgical/Procedure Consent Signed : Yes NAN DIAZ RN - 08/21/2016 9:29 CDT Family Location : room NAN DIAZ RN - 08/21/2016 9:29 CDT Checklist II Patient Safety Grid Allergy Band on and Verified : Yes Anesthesia Consult : Yes Band on for Limb Alert : Yes Blood Band on and Verified : Yes Current ECG in Medical Record : Yes Current H&P in Medical Record : Yes Implants Verified : Yes Medication Reconciliation on Chart : Yes Pacemaker/AICD Verified : NA ID Band on and Verified : Yes Preop Medications Sent With Patient : Yes Relevant Images in Medical Record : Yes Review of Labs : Yes Procedure/Site Verified by Patient/Family : Yes Procedure/Site Verified by RN : Yes Procedure/Site Verified by Physician : Yes Type & Screen/Type & Cross Completed : Yes NAN DIAZ RN - 08/21/2016 9:29 CDT RN Who Verified Site : NAN DIAZ RN, LISA M RN - 08/21/2016 9:29 CDT FLAVIA Screening Known Obstructive Sleep Apnea : No - NOT diagnosed with FLAVIA FLAVIA Score : Total Sleep Apnea Clinical Score: 0.00 07/24/16 FLAVIA Results : High BP or Take Medications for High BP: No 07/24/16 Known Obstructive Sleep Apnea: No - NOT diagnosed with FLAVIA 07/24/16 Neck Circumference - FLAVIA: 32/33 07/24/16 Frequency of Gasping, Choking, Snorting: Never 07/24/16 Frequency of Snoring: Sometimes (1-2 times per month) 07/24/16 Total Number of Historical Features: 0 07/24/16 NAN DIAZ RN - 08/21/2016 9:29 CDT FLAVIA Assessment Do you have high blood pressure or have you been told to take medication for high blood pressure? : No Frequency of Snoring : Occasionally (4-8 times per year) Frequency of Gasping, Choking, Snorting : Occasionally (4-8 times per year) Total Number of Historical Features : 0 Neck Circumference (cm) : 34/35 Total Sleep Apnea Clinical Score Calc : 1 NAN DIAZ RN - 08/21/2016 9:29 CDT Advance Directive Advanced Directives : Yes Advance Directive Type : Living will, Health care power of workers compensation defense attorney Advance Directive Location : Scanned into EMR NAN DIAZ RN - 08/21/2016 9:29 CDT Vital Signs Temperature Core : 36.5 DegC(Converted to: 97.7 DegF) Limb Alert Question : No Peripheral Pulse Rate : 71 /min Systolic Blood Pressure : 154 mmHg (HI) Diastolic Blood Pressure : 72 mmHg NIBP Mean : 99 mmHg BP Location : Right upper extremity SpO2 : 99 % Oxygen Therapy : Room air Height : 165 cm(Converted to: 5 ft 5 inch(es)) Actual Weight : 66.8 kg Actual Weight Conversion to Pounds : 146.96 lb Weight Source : Other: Prosthetic device on during patient weight : No Body Mass Index : 24.54 kg/m2 NAN DIAZ RN - 08/21/2016 9:29 CDT Allergy (As Of: 08/21/2016 09:35:12 CDT) Allergies (Active) Septra Estimated Onset Date: Unspecified ; Created By: STEFANIE BALDWIN MD; Reaction Status: Active ; Category: Drug ; Substance: Septra ; Type: Allergy ; Updated By: STEFANIE BALDWIN MD; Reviewed Date: 08/21/2016 9:25 CDT zinc acetate containing compounds Estimated Onset Date: Unspecified ; Reactions: rash ; Created By: GAGAN TRAN; Reaction Status: Active ; Category: Drug ; Substance: zinc acetate containing compounds ; Type: Allergy ; Updated By: GAGAN TRAN; Reviewed Date: 08/21/2016 9:25 CDT Source: [facility] POWERCHART Document Id: [id number] CDT!75 documented in this encounter Nursing Notes Nan Diaz R.N. - 08/21/2016 9:24 AM CDT Day Surgery Admission History/Asmt Adult Document Has Been Updated Day Surgery Admission History/Asmt Adult Entered On: 08/21/2016 9:29 CDT Performed On: 08/21/2016 9:24 CDT by NAN DIAZ RN General Info Preferred Name : Karoline Admitted From : Non-Health Care Facility Point of Origin Mode of Arrival : Ambulatory Present in Room During Exam/Procedure : Son Chief Complaint : right eye cataract Preferred Communication Mode : Verbal Information Given By : Patient Languages : Anguillan Have you received chemotherapy in last 48 hours? : No Is Patient Female and 13-50 no hysterectomy : No NAN DIAZ RN - 08/21/2016 9:24 CDT Allergy (As Of: 08/21/2016 09:29:27 CDT) Allergies (Active) Septra Estimated Onset Date: Unspecified ; Created By: STEFANIE BALDWIN MD; Reaction Status: Active ; Category: Drug ; Substance: Septra ; Type: Allergy ; Updated By: STEFANIE BALDWIN MD; Reviewed Date: 08/21/2016 9:25 CDT zinc acetate containing compounds Estimated Onset Date: Unspecified ; Reactions: rash ; Created By: GAGAN TRAN; Reaction Status: Active ; Category: Drug ; Substance: zinc acetate containing compounds ; Type: Allergy ; Updated By: GAGAN TRAN; Reviewed Date: 08/21/2016 9:25 CDT Nutrition Have you recently lost weight without trying? : No Decreased Appetite Nutrition : No Tube Feedings or Parenteral Nutrition : No MST Score : 0 NAN DIAZ RN - 08/21/2016 9:24 CDT Home Environment Current Daily Living Assistance : None Home Equipment : None NAN DIAZ RN - 08/21/2016 9:24 CDT Dependent Habits Exposure to Tobacco Smoke : Care provider denies smoking in home Smoking Status : Former smoker Tobacco 2A : Yes Tobacco Use/Currently Using : No Tobacco Use/Last 30 Days : No Tobacco Use/Last 12 months : No Tobacco Last Use/Year : 1969 NAN DIAZ RN - 08/21/2016 9:24 CDT Caffeine Use Grid Caffeine Use : Current Type : Coffee, Soft drinks, Tea Frequency : Daily Amount : 1 cup NAN DIAZ RN - 08/21/2016 9:24 CDT Psychosocial Adult Domestic Abuse Concerns : None Concerns About Family Members at Home : No Emotional Support Available : Yes Behavioral Health Screen/Safety Assmt : No Mormonism Preference : Restoration: Worship NAN DIAZ RN - 08/21/2016 9:24 CDT Advance Directive Advanced Directives : Yes Advance Directive Type : Living will, Health care power of workers compensation defense attorney Advance Directive Location : Scanned into EMR NAN DIAZ RN - 08/21/2016 9:24 CDT Educ Needs Patient/Family Education Needs : Allergies, Postoperative instructions, Safety, bathtub NAN DIAZ RN - 08/21/2016 9:24 CDT Learning Style Preference Adult Grid Patient : Printed materials, Verbal explanation Family : Printed materials, Verbal explanation NAN DIAZ RN - 08/21/2016 9:24 CDT Education Preprocedure Education Grid Procedure Type : right eye cataract Education Topics : Family instructions Individuals Taught : Patient, Son Barriers to Learning : None evident Teaching Method : Explanation Teaching Evaluation : Able to teach back NAN DIAZ RN - 08/21/2016 9:24 CDT Psycho/Emotional Pain Symptoms : No NAN DIAZ RN - 08/21/2016 9:24 CDT Peripheral IV Peripheral IV Assess/Intervention Grid Peripheral IV #1 IV Activity : Start Number of Attempts : 1 Date of Insertion : 08/21/2016 CDT IV Site : Antecubital Laterality : Right Catheter Size : 22 SELENE COX RN - 08/21/2016 9:51 CDT Shawn Sensory Perception Shawn : No impairment Moisture Shawn : Rarely moist Activity Shawn : Walks frequently Mobility Shawn : No limitations Nutrition Shawn : Excellent Friction and Shear Shawn : No apparent problem Shawn Score : 23 NAN DIAZ RN - 08/21/2016 9:24 CDT Hendrich II Fall Risk Gender, Male Fall Risk Hendrich : No NAN DIAZ RN - 08/21/2016 9:24 CDT Source: [facility] POWERCHART Document Id: [id number] CDT!10 documented in this encounter OR Notes Op Note - Conversion, Historical Provider Ser - 08/21/2016 1:29 PM CDT [employer] CASE RECORD UPLOAD DATA PATIENT: KAROLINE NUÑEZ SURGERY DATE: 08/21/2016 UNIT #: [id number] ROOM: [address] NBR: [id number] STATUS: In Process DATE: 1935 SIGN. STATUS: Unsigned Surgeon Assistants Procedure(s) Berto Moncada Cataract Removal by Phaco with IOL Implant SECTION NAME : 1/IntraOp Case Record -- PAGE : OR01A PreOperative Assessment Notes: Comments: PATIENT ADMITTED BY Charly DIAZ RN Patient Identification: CHART Chart Date of IDBAND IRob Band PATIENT Patient VERBAL Verbal Procedure / [...] -- PAGE : OR02B Anesthesia Staff Anesthesiologist: TEST PREPARER: Jaskaran Brannon TEST PREPARER SECTION NAME : 1/IntraOp Case Record -- PAGE : OR02C Anesthesia Primary Anes: SHAYE Martineztl Anes: 4LOC Local Comments: Regional Anesthetic Only: SECTION NAME : 1/IntraOp Case Record -- PAGE : OR03A Times In OR Time: 1105 Surgery Start Time: 1111 Surgery End Time: 1115 Out of OR Time: 1117 Anesthesia Start Time: Anesthesia End Time: Cecum Time: SECTION NAME : 1/IntraOp Case Record -- PAGE : OR03B Classifications Classification of Surgical Wound: Y Wound Class: CL Clean ASA Class: 3 CLASS Moderately severe systemic disorder Case Class: 0ELEC Elective Case Classified By: ALCIRA Anesthestist Dhruvampati Class: Patient Transported to OR Via: CART [...] Patient Limitations: NONE None Comment: PreOp Diagnosis: RIGHT EYE CATARACT SECTION NAME : 1/IntraOp Case [...] has occured Time Out for Procedure Verification: 1111 Surgery Start Time: 1111 OR Nurse Initials: [facility] Notes: BRIEFING DONE ALL PARTICIPATED SECTION NAME : 1/IntraOp Case Record -- PAGE : OR06A Case Personnel Manufacturing Maintenance Technician: Marlen Reyna RN, Lisa RN Relief Manufacturing Maintenance Technician: SECTION NAME : 1/IntraOp Case Record -- PAGE : OR06B Case Personnel OR Tech: Elizabeth aTpia LPN Relief OR Tech: SECTION NAME : 1/IntraOp Case Record -- PAGE : PERRY Case Clerical Adjuster: MAUREEN None Relief Assist: SECTION NAME : 1/IntraOp Case Record -- PAGE : OREstefani Case Personnel Other Name: LUPILLO COON SITE PATH Cole HERNANDEZ SITE PATH Laura HU Other Role: AGENCY Agency AGENCY Agency Notes: SECTION NAME : 1/IntraOp Case Record -- PAGE : ALFRED Positioning Apply Safety Devices: N/A Safety Strap Applied to: papoose Skin Risk Factors NONE None Comment: SECTION NAME : 1/IntraOp Case Record -- PAGE : KEEGAN Positioning Evaluate PreOp Skin: Y PreOp Skin Assessment: unremarkable Positioning Devices: ANITRA turner Comment: SECTION NAME : 1/IntraOp Case Record -- PAGE : ORGeraldoC Positioning Positioning Protection: PILLOW Pillow GEL Gel Pads Comment: under legs and head Notes: SECTION NAME : 1/IntraOp Case Record -- PAGE : ORDgA Positioning Position for Surgery: SUP Supine Comment: Positioned By: ALCIRA Certified Registered Nurse Returned Goods Receiving Clerk DEONNA Registered Nurse Comment: SECTION NAME : 1/IntraOp Case Record -- PAGE : ORDgB Positioning Arm Position During Surgery: ARMS Arms Padded at Side Comment: Notes: SECTION NAME : 1/IntraOp Case Record -- PAGE : OR08C Prep Skin Prep: Y Prep Solution: BSOL Betadine Solution *Length of Alcohol Prep Dry Time (3 min minimum): 3 Comment: SECTION NAME : 1/IntraOp Case Record -- PAGE : OR09A Prep Skin Condition at Op Site: INTACT Intact Comment: SECTION NAME : 1/IntraOp Case Record -- PAGE : OR09B Prep Surgical Clippers: N By: Area: SECTION NAME : 1/IntraOp Case Record -- PAGE : OR09C Moderate Sedation 1 Clinical Alarms On? O2 Therapy: L/Min: IV Fluid: TOTAL ML: Notes: Notes: SECTION NAME : 1/IntraOp Case Record -- PAGE : OR09E Post Procedure Assess 1 Post Procedure Assessment [...] 5: 10: 15: Out: SECTION NAME : 1/[facility] Case Record -- PAGE : OR09F Post [...] (ml): LESS THAN 1ML SECTION NAME : 1/[facility] Case Record -- PAGE : OR10A Specimen Manage specimen handling and disposition: Y [...] RN prior to prep SECTION NAME : 1/[facility] Case Record -- PAGE : OR11A1 Meds2 Time: VO / RBO / Given By: SECTION NAME : 1/[facility] Case Record -- PAGE : OR11B XRay X-Rays Taken: N X-Ray Type: Indication for X-Ray: Patient Shield: Other Indication for X-Ray: SECTION NAME : 1/[facility] Case Record -- PAGE : OR12A Cautery Grounding Pad Applied: N/A Cautery Pad Placement: If Other, detail: ESU Number: Cut: Coagulation: Blend: Bipolar: SECTION NAME : 1/IntraOp Case Record -- PAGE : OR12B Special Equipment Special Equipment Used: EYE Eye Microscope MARIIA Gaitan PHACO Phaco Machine Comment: provided by [employer] provided by [facility] Notes: Thermal Unit: Temperature: N/A SECTION NAME : 1/IntraOp Case Record -- PAGE : ORAlonzoB Tourniquet 2 Tourniquet #2 Site: NONE None [...] : 1/IntraOp Case Record -- PAGE : ANABELA Drains Tube /Drain/ Catheter: N N Size: Location: Inserted By (if applicable): OR Drainage Detail: Notes: SECTION NAME : 1/IntraOp Case Record -- PAGE : CHAPIN Packing Packing: NONE None Site: SECTION NAME : 1/IntraOp Case Record -- PAGE : RAMESH Closing PreOp Diagnosis: RIGHT EYE CATARACT Post Op Diagnosis: Same Operation: RIGHT EYE phacoemulsification of cataract with intraocular lens implant Notes: SECTION NAME : 1/IntraOp Case Record -- PAGE : RAMON Dressing Evaluate PostOp Skin: Y Post Op Skin Condition: unchanged Dressing: NONE None Comment: SECTION NAME : 1/Intra Case Record -- PAGE : OR16A Count [...] DONE ALL PARTICIPATE D SECTION NAME : /[facility] Case Record -- PAGE : OR16B Sponge Count Count Description: INITIAL Initial Count END End of Procedure Sponge: N/A N/A SECTION NAME : /[facility] Case Record -- PAGE : OR16C Sharp Count Count Description: INITIAL Initial Count END End of Procedure Sharps: N/A N/A SECTION NAME : 1/[facility] Case Record -- PAGE : OR16D Instrument Count Count Description: INITIAL Initial Count END End of Procedure Instruments: N/A N/A SECTION NAME : 1/IntraOp Case Record -- PAGE : OR16E Patient Discharged To Transport Via: CART Cart with Side Rails Up X2 OR Pt Discharge To: [facility] [place] Same Day Care Room: : Time: SECTION NAME : 1/IntraOp Case Record -- PAGE : OR17 Family Notification Provide Status Reports to Family/Support Person: N/A Notification Time: Notes: SECTION NAME : 1/IntraOp Case Record -- PAGE : OR18A New Laser Form 8.15.12 Initials verify that LASER SAFETY CHECKLIST was reviewed and is complete OR Nurse Initials Laser Type: Hertz Setting: Joules Setting: Fihser: Total Pulses: Total Joules: Total Fisher: Total [...] : OR19B Respiratory_Heart Rate Time: RR: HR: NA NA SECTION NAME : 1/IntraOp Case [...] #: Serial #: Reference # Location: 1 [id number] RIGHT EYE # Plant Sprayer: Date: Wasted: 10/10/2020 Notes: Lan Lens SECTION NAME : 1/[facility] Case Record -- PAGE : OR22A Tissue Log A Lime Burner From Lab to OR: Tissue Description Tissue Disposition: NONE None Time Implanted: Tissue Type: SECTION NAME : 1/Intra Case Record -- PAGE : OR22B Tissue Log B Tissue Package Condition: Package Opened By: Tissue Prepared By: Tissue Prepared According to Package Insert?: Implant Card Completed and Mailed?: SECTION NAME : 1/Intra Case Record -- PAGE : OR22C Tissue Log C Rehydrating Solution: Thawing Solution: Time in Solution: Solution Temp Celsius: Duration in Solution: SECTION NAME : 1/IntraOp Case Record -- PAGE : OR21 CSection C Section Called: Heart Tones Prior to Surgery: Uterine Scoring: Delivery Time: Sex: Delivery Assistance: Notes: [facility] Document Id: [id number] Op Note - Jaskaran Pederson, TEST PREPARER - 08/21/2016 11:22 AM CDT ANES, Phase II Recovery POSTANESTHESIA ASSESMENT T, P, RR, and SpO2 VITAL SIGNS Temperature Core: 36.5 Peripheral Pulse Rate: 74 SpO2: 98 BP BLOOD PRESSURE Systolic Blood Pressure: 152 Diastolic Blood Pressure: 73 Cardiovascular Status [X] Hemodynamics (HR and BP) [...] Electronically Signed By: JASKARAN PEDERSON CRNA On: 08/21/2016 11:23 AM Source: [employer] POWERCHART Document Id: [id number] Op Note - Jaskaran Pederson CRNA - 08/21/2016 8:38 AM CDT ANES, Preanesthesia Evaluation PREANESTHESIA EVALUATION PROCEDURE INFORMATION Proceduralist Dr. Moncada Pre-Procedure Indication Cataract Procedure Planned Right Phaco with IOL Anesthesia Planned MAC HEIGHT AND WEIGHT No qualifying data available. ALLERGY LIST Septra zinc acetate containing compounds (rash) PROBLEM LIST Anemia Pers Hx Arthritis Inflammatory Body mass index (BMI) 70 or greater, adult Cerumen Impacted NOS Cervical Disc Disorder With [...] OUTPATIENT MEDICATION LIST Medication List Active Medications Prescribed ranitidine: 150 mg, 1 tab(s), PO, [...] Medications Inactivated in the Last 72 Hours No medications found. PROCEDURE LIST Cataract extraction: 07/24/16 Colonoscopy Mammogram Cholecystectomy Appendectomy Lumpectomy Bunionectomy Tonsillectomy LAB AND DIAGNOSTICS (selected) CBC WBC: 6.2 [...] _ DATE OF HISTORY AND PHYSICAL EXAM 08/18/2016 CURRENT / PAST MEDICAL AND SURGICAL HISTORY [...] Sleep Apnea Renal / Urinary and Reproductive [_] Chronic or Acute Kidney Disease Endocrine [_] Diabetes [_] Hypothyroidism Neurologic [_] Cerebrovascular Disease [_] History of Stroke [_] History of Seizure [_] Parkinsons Disease Psychiatric / Social [_] Alcohol/Other Substance Abuse [_] Depression/Anxiety Musculoskeletal [_] Degenerative Joint Disease/Osteoarthritis Gastrointestinal / Hepatobiliary [_] Gastroesophageal Reflux Disease Hematology [_] Anemia [_] Increased Risk of Hemorrhage Obstetric / Gynecologic _ ENT [_] History of airway surgery Infectious Disease [_] MRSA Anesthesia [_] Malignant Hyperthermia [_] Pseudocholinesterase Deficiency [_] History of Difficult Airway [_] History of PONV Other _ STATUS [X] FINALIZED [_] PROCEDURE CANCELLED PROCEDURE DATE 08/21/2016 ASA PHYSICAL STATUS * 3 ANESTHETIC / SEDATION PLAN * [_] General Anesthesia [_] Combined General / Regional Anesthesia [_] Regional Anesthesia [X] Monitored Anesthesia Care [_] Sedation Care - RN COMMENTS _ IDENTIFICATION [X] Patient identified * [X] Procedure Verified * [X] Site Verified * NPO STATUS [X] NPO Verified PHYSICAL ASSESSMENT VITAL SIGNS Temperature Core: 36.5 Peripheral Pulse Rate: 71 SpO2: 99 BLOOD PRESSURE Systolic Blood Pressure: 154 High Diastolic Blood Pressure: 72 Airway * Thyromental Distance: 3 Neck ROM: Adequate Jaw Opening: Adequate Mallampati Classification: 2 Dentition: [...] the patient or an alternative decision maker Electronically Signed By: JASKARAN PEDERSON CRNA On: 08/21/2016 10:56 AM Modified by and Electronically Signed by: JASKARAN PEDERSON CRNA On: 08/21/2016 10:56 AM [facility] POWER[facility] Document Id: [id number] documented in this encounter Miscellaneous Notes Miscellaneous - Conversion, Historical Provider Ser - 08/21/2016 12:10 PM CDT Coding Summary-Paper Based CODING DATE: 08/26/2016 FINAL [facility] STATUS: * Discharged to Home or Self Care PAYOR: Medicare APC DESCRIPTION 549 Level 1 Intraocular Procedures ADMIT DX: REASON FOR VISIT DX: FINAL DX: PRINCIPAL: H26.9 Unspecified cataract SECONDARY: PYMT PROC APC STAT DESCRIPTION DOCTOR NAME DATE 5490 J1 CATARACT REMOVAL BERTO MONCADA MD 08/21/2016 INSERTION OF LENS RT RIGHT SIDE (USED TO IDENTIFY PROCEDURES PERFORMED ON THE RIGHT SIDE OF THE BODY) NOTE: The code number assigned matches the documented diagnosis and / or procedure in the patient's chart. However, the narrative phrase printed from the coding software may appear abbreviated, or result in slightly different terminology. Revised Coded By: DARRICK FAGAN Revised Date Saved: 08/26/2016 12:18 pm Source: [facility] Document Id: [id number] Miscellaneous - Michelle Tate, R.N. - 08/21/2016 12:00 PM CDT Adult Postprocedure Assessment Adult Postprocedure Assessment Entered On: 08/21/2016 13:16 CDT Performed On: 08/21/2016 12:00 CDT by MICHELLE TATE RN Vital Signs Limb Alert Question : No Peripheral Pulse Rate : 68 /min Respiratory Rate : 16 /min Systolic Blood Pressure : 150 mmHg (HI) Diastolic Blood Pressure : 73 mmHg NIBP Mean : 99 mmHg BP Location : Left upper extremity SpO2 : 97 % Height : 165 cm(Converted to: 5 ft 5 inch(es)) MICHELLE TATE RN - 08/21/2016 13:07 CDT General Level of Consciousness : Alert Orientation : Oriented x 3 Skin Color : Normal for ethnicity Skin Description : Dry Skin Temperature : Warm Pain Symptoms : No MICHELLE TATE RN - 08/21/2016 13:07 CDT Respiratory Respiratory Patient Stated Symptoms : None MICHELLE TATE RN - 08/21/2016 13:07 CDT GI/ Nausea Symptoms : No MICHELLE TATE RN - 08/21/2016 13:07 CDT Incision/Wound Incision/Wound Care Grid Location : Eye Laterality : Right Description : Moist, Other: tearing Drainage Amount : Scant MICHELLE TATE RN - 08/21/2016 13:07 CDT Peripheral IV Peripheral IV Assess/Intervention Grid Peripheral IV #1 IV Activity : Discontinue, Assessment Removal : Catheter intact, Hemostasis within expected timeframe Date of Insertion : 08/21/2016 CDT Discontinued Date : 08/21/2016 CDT IV Site : Antecubital Laterality : Right Catheter Size : 22 Catheter Type : Over the needle Site Condition : No complications Drainage Description : None MICHELLE TATE RN - 08/21/2016 13:07 CDT I&O Oral Intake : 240 mL Other Intake : 800 mL (Comment: NaCl [MICHELLE TATE RN - 08/21/2016 13:07 CDT] ) MICHELLE TATE RN - 08/21/2016 13:07 CDT Nutrition Morning Snack : 100 % (Comment: small hebrew [MICHELLE TATE RN - 08/21/2016 13:07 CDT] ) MICHELLE TATE RN - 08/21/2016 13:07 CDT Activity Activity Status ADL : Ambulating in [place], Bathroom privileges Activity Assistance : Stand-by assistance Assistive Device : None Ambulation Distance : 10 m Ambulation Patient Effort : Good MICHELLE TATE RN - 08/21/2016 13:07 CDT PARSAP Activity Status : Moves 4 extremities voluntarily or on command Dressing : None Respiratory Component : Able to deep breathe and cough freely Pain : Pain free Circulation Component : BP 20% of preanesthetic level Ambulation : Able to stand up and walk straight Consciousness : Fully awake Fasting and Feeding : Able to drink fluids Oxygen Saturation - Sedation : Can maintain > 92% on room air Urine Output, PARSAP : Has voided PARSAP Score : 20 MICHELLE TATE RN - 08/21/2016 13:07 CDT Education General Patient Education [employer] Topics : Activity limitations/expectations, Bathing/Hygiene, Importance of follow-up visits, Individual plan for pain management, Medication dosage, route, scheduling, Postoperative instructions, Safety, fall, When to call health care provider, Wound care Individuals Taught : Patient, Son Barriers to Learning : None evident Teaching Method : Explanation, Printed materials Teaching Evaluation : Verbalizes understanding, Other: Family very involved in patients care Son reports plan for care of mother by other siblings MICHELLE TATE RN - 08/21/2016 13:07 CDT Source: [facility] Document Id: [id number] CDT!73 Miscellaneous - Mihcelle Tate R.N. - 08/21/2016 11:20 AM CDT Adult Postprocedure Assessment Adult Postprocedure Assessment Entered On: 08/21/2016 13:05 CDT Performed On: 08/21/2016 11:20 CDT by MICHELLE TATE RN Vital Signs Limb Alert Question : No Peripheral Pulse Rate : 74 /min Respiratory Rate : 12 /min (LOW) Systolic Blood Pressure : 152 mmHg (HI) Diastolic Blood Pressure : 73 mmHg NIBP Mean : 99 mmHg BP Location : Left upper extremity SpO2 : 98 % Oxygen Therapy : Room air Height : 165 cm(Converted to: 5 ft 5 inch(es)) MICHELLE TATE RN - 08/21/2016 11:34 CDT General Level of Consciousness : Drowsy Orientation : Oriented x 3 Skin Color : Normal for ethnicity Skin Description : Dry Skin Temperature : Warm Pain Symptoms : No (Comment: per patient report not pain just scratchy with a stinging [MICHELLE TATE RN - 08/21/2016 11:34 CDT] ) MICHELLE TATE RN - 08/21/2016 11:34 CDT Respiratory Respiratory Patient Stated Symptoms : None MICHELLE TATE RN - 08/21/2016 11:34 CDT GI/ Nausea Symptoms : No MICHELLE TATE RN - 08/21/2016 11:34 CDT Peripheral IV Peripheral IV Assess/Intervention Grid Peripheral IV #1 IV Activity : Assessment Date of Insertion : 08/21/2016 CDT IV Site : Antecubital Laterality : Right Catheter Size : 22 Catheter Type : Over the needle Site Condition : No complications Drainage Description : None Infiltration Score : 0 Phlebitis Score : 0 Dressing/ Activity : Dry, Transparent Flow/ Patency : No complications IV Equipment/Supplies : Normal saline back up bag MICHELLE TATE RN - 08/21/2016 11:34 CDT Activity Patient Position : Semi-Viver[employer]'s MICHELLE TATE RN - 08/21/2016 11:34 CDT [facility] Document Id: [id number] CDT!41 documented in this encounter Plan of Treatment Not on filedocumented as of this encounter Visit Diagnoses Not on filedocumented in this encounter
--- OUTSIDE RECORDS SUMMARY | 2022-01-19 14:57 | XMS_ITS | Encounter Summary ---
:1935 Author Organization [facility] Address [address] [place] [address] Care Team Providers Name Role Phone Unavailable Primary Care Provider Unavailable Encounter Details Date Type Department Care Team Description 06/18/2016 Hospital Encounter HX [facility] MAN Lydia Casey M.D. [address] [place] [address] [phone] (Wo rk) Social History Tobacco Use Types Packs/Day Years Used Date Smoking Tobacco: Former Sex Assigned at Date Recorded Not on file documented as of this encounter Last Filed Vital Signs Vital Sign Reading Time Taken Comments Blood Pressure 153/80 06/18/2016 12:09 AM RADIO MACHINIST Pulse 83 06/18/2016 12:09 AM RADIO MACHINIST Temperature - - Respiratory Rate 20 06/18/2016 12:09 AM RADIO MACHINIST Oxygen Saturation - - Inhaled Oxygen Concentration - - Weight - - Height - - Body Mass Index - - documented in this encounter Discharge Summaries Rashmi Charles, RXeniaN. - 06/18/2016 1:09 AM CST ED Discharge Instructions [place] [address] [place] [address] Name: KAROLINE HALEY Date of : 1935 12:00 AM Visit Date: 06/18/2016 12:03 AM [facility] Number: [id number] Address: [address] [place] [phone] Primary Care Provider: BRITNEY BALDWIN MD IMPORTANT: [facility] in [place] would like to thank you for allowing us to assistyou with your healthcare needs. The following includes patient education materials and information regarding your injury/illness. Diagnosis: Chronic Kidney Disease (CKD) Stage 3 GFR 30-59; Cystitis Acute Follow-Up Instructions: With: Address: When: BRITNEY BALDWIN [address] [place] [phone] [employer] Within 3 - 5days Comments: Call for follow up appointment. For recheck. Your Upcoming Appointments: Date Time Location Provider 06/19/2016 09:30 PAM Ortez MD, Tory Zafar Patient Education Materials: Bladder Infection, Female (Adult) A bladder infection (cystitis or UTI) usually causes a constant urge to urinate and a burning when passing urine. Urine may be cloudy, smelly or dark. There may be pain in the lower abdomen. A bladder infection occurs when bacteria from the vaginal area enter the bladder opening (urethra). This can occur from sexual intercourse, wearing tight clothing, dehydration and other factors. Home Care: ?? Drink lots of fluids (at least 6-8 glasses a day, unless you must restrict fluids for other medical reasons). This will force the medicine into your urinary system and flush the bacteria out of yourbody. ?? Avoid sexual intercourse until your symptoms are gone. ?? Avoid caffeine, alcohol and spicy foods. These can irritate the bladder. ?? A bladder infection is treated with antibiotics. You may also be given Pyridium (generic = phenazopyridine) to reduce the burning sensation. This medicine will cause your urine to become a bright orange color. The orange urine may stain clothing. You may wear a pad or panty-liner to protect clothing. Preventing Future Infections: ?? Always wipe from front to back after a bowel movement. ?? Keep the genital area clean and dry. ?? Drink plenty of fluids each day to avoid dehydration. ?? Both sexual partners should wash before intercourse. ?? Urinate right after intercourse to flush out the bladder. ?? Wear cotton underwear and cotton-lined panty hose; avoid tight-fitting pants. ?? If you are on control pills and are having frequent bladder infections, discuss with your doctor. Follow Up: Return to this facility or see your doctor if ALL symptoms are not gone after three days of treatment. Get Prompt Medical Attention if any of the following occur: ?? Fever of 100.4?F (38?C) or higher, or as directed by your healthcare provider ?? No improvement by the third day of treatment ?? Increasing back or abdominal pain ?? Repeated vomiting; unable to keep medicine down ?? Weakness, dizziness or fainting ?? Vaginal discharge ?? Pain, redness or swelling in the labia (outer vaginal area) ?? [phone] [facility], [address] [place] [address], [place] [address]. All rights reserved. This information is not [...] if you dont have one. Go to [email or web address] and click on Create Your Account. Then, follow the directions to complete the online form. Youll be asked for your [facility] number which you can find at the top of this document. ED Tests and Procedures: Order Status Culture Urine Ordered Urinalysis with Culture if Indicated Completed Discharge Prescriptions & Home Medications: Medication/Strength Dose Route Frequency Indications/Special Instructions/Comments/Notes ciprofloxacin (ciprofloxacin 250 mg oral tablet) 250 mg Oral two times a day for 5 Days rowdtriamcinolone topical (triamcinolone 0.1% topical cream) 1 tessie Topical three times a day ranitidine (ranitidine 150 mg oral tablet) 150 mg Oral once a day (at bedtime) simvastatin (simvastatin 10 mg oral tablet) 10 mg Oral once a day (at bedtime) raloxifene (raloxifene 60 mg oral tablet) 60 mg Oral once a day *orphenadrine (orphenadrine 100 mg oral tablet, extended release) 100 mg Oral as needed aspirin (aspirin 81 mg oral delayed release tablet) 81 mg Oral once a day multivitamin with minerals (Centrum Silver Women's oral tablet) cholecalciferol (Vitamin D3 1000 intl units oral tablet) 1,000 IntU Oral once a day * You have let us know that you are not taking this medication as listed. Please talk with your primary care provider or the health care provider who prescribed the medication as soon as possible. Attention: If you have any medications at [...] arrange a ride home with a responsible republican. SUDHA France ALICE ROSE , or responsible republican have received this information and my questions have been answered. I have discussed any challenges I see with this plan with the nurse or physician. Patient Signature or Responsible Alliance Party/Relationship Date Time Provider Signature Date Time [...] arrange a ride home with a responsible republican. I, KAROLINE HALEY , or responsible republican have received this information and my questions have been answered. I have discussed any challenges I see with this plan with the nurse or physician. Patient Signature or Responsible Alliance Party/Relationship Date Time Provider Signature Date Time This document has images extracted. Please consider using [employer] for all your patient education needs. Source: [facility] POWERCHART Document Id: [id number] O MACHINIST Rashmi Charles, R.N. - 06/18/2016 1:09 AM CST ED Depart Summary [facility] Emergency Department Clinical Discharge Summary PERSON INFORMATION Name KAROLINE HALEY Age 80 Years 1935 12:00 AM Sex Female Language Spanish PCP BRITNEY BALDWIN MD Marital Status Visit Id Visit Reason Pain passing urine; UTI Specialty Enc Type Emergency Med Service Emergency Medicine Referred by [facility] MAQN ED Discharge 06/18/2016 1:00 AM Tracking Id [id number] Checkout 06/18/2016 1:00 AM Checkin 06/18/2016 12:03 AM Acuity 4 -Less Urgent Dispo Type * Discharged to Home or Self Care Arrival 06/18/2016 12:03 AM Reg Status JINNY Mitchell 00:57 Address: [address] [place] [address] [place] [phone] Comment: PROVIDER INFORMATION Provider Role Provider Contact Time RASHMI CHARLES SET OFF PRESS OPERATOR Nurse 06/18/16 00:19 JORDAN PAZ MD ED Provider 06/18/16 00:22 DIAGNOSIS Chronic Kidney Disease (CKD) Stage 3 GFR 30-59; Cystitis Acute Comment: PATIENT EDUCATION INFORMATION Instructions: BLADDER INFECTION, Female (Adult) Follow up: With: Address: When: BRITNEY BALDWIN [address] [place] [phone] [facility] ([employer] Within 3 - 5days Comments: Call for follow up appointment. For recheck. Source: [facility] POWER[facility]ART Document Id: [id number] O MACHINIST documented in this encounter Medications at Time of Discharge Medication Sig Dispensed Refills Start Date End Date cholecalciferol (VITAMIN Take 1,000 Units by 0 D3) 1,000 Unit capsule mouth daily. geriatric Take 1 tablet by 0 01/30/2015 zwngaiyr-dzwz-xyah tablet mouth daily. simvastatin (ZOCOR) 10 mg Take 10 mg by mouth 0 0 10/28/2014 tablet at bedtime. Vanicream-plasticized Apply 1 application 0 06/17 base 80-20 % cream with topically 3 (three) triamcinolone acetonide times a day. 40 mg/mL suspension raNITIdine (ZANTAC) 150 150 mg. 0 10/28/2014 0 07/23/2020 mg tablet documented as of this encounter ED Notes Rashmi Charles, R.N. - 06/18/2016 1:00 AM CST ED Disposition Summary ED Disposition Summary Entered On: 06/18/2016 1:07 RADIO MACHINIST Performed On: 06/18/2016 1:00 RADIO MACHINIST by RASHMI CHARLES RN ED Disposition Summary Present in Room During Exam/Procedure : Son Mode of Discharge : Ambulatory Transportation : Private vehicle Printed Discharge Instructions Given to Patient : Yes RASHMI CHARLES RN - 06/18/2016 1:07 RADIO MACHINIST Source: [facility] [employer] Document Id: [id number] RADIO MACHINIST!6 O MACHINIST Rashmi Charles R.N. - 06/18/2016 1:00 AM CST ED Education ED Education Entered On: 06/18/2016 1:08 RADIO MACHINIST Performed On: 06/18/2016 1:00 RADIO MACHINIST by RASHMI CHARLES RN Education ED Education Grid Topics : Discharge instructions/Medication list Individuals Taught : Patient, Son Barriers to Learning : None evident Teaching Method : Explanation, Printed materials Teaching Evaluation : Able to teach back, Verbalizes understanding RASHMI CHARLES RN - 06/18/2016 1:08 RADIO MACHINIST Source: [facility] [employer] Document Id: [id number] RADIO MACHINIST!9 O MACHINIST Rashmi Charles R.N. - 06/18/2016 12:50 AM CST ED Nurse Reassess ED Nurse Reassess Entered On: 06/18/2016 1:06 RADIO MACHINIST Performed On: 06/18/2016 0:50 RADIO MACHINIST by RASHMI CHARLES RN Pain Assessment Pain Symptoms : Yes RASHMI CHARLES RN - 06/18/2016 1:05 RADIO MACHINIST Comfort Measures Comfort Measures Grid Meditation Facilitation : Yes RASHMI CHARLES RN - 06/18/2016 1:05 RADIO MACHINIST Patient Response : discharge instructions discussed. first dose of cipro given. Comfort Measures Response : Comfort level unchanged RASHMI CHARLES RN - 06/18/2016 1:05 RADIO MACHINIST [facility] Document Id: [id number] RADIO MACHINIST!8 O MACHINIST Jordan Paz M.D. - 06/18/2016 12:23 AM CST Pain passing urine Document Contains Addenda Addendum by JORDAN PAZ MD on June 18, 2016 0:59 RADIO MACHINIST The urinalysis shows trace leuk esterase with 21-30 WBCs per high-powered field. The specific gravity is 1.025 and the urinary pH is 5. A urine culture is pending at the time of this dictation. TJM Electronically Signed By: JORDAN PAZ MD On: 06/18/2016 12:54 AM Modified by and Electronically Signed by: JORDAN PAZ MD On: 06/18/2016 12:54 AM Modified by and Electronically Signed by: JORDAN PAZ MD On: 06/18/2016 12:59 AM Pain passing urine Patient: KAROLINE HALEY Age: 80 years Sex: Female : 1935 Author: JORDAN PAZ MD Attachments: None Associated Diagnosis: Chronic Kidney Disease (CKD) Stage 3 GFR 30-59; Cystitis Acute Basic Information Time seen: Date & time 06/18/2016 00:23:00. History source: Patient, son. Arrival mode: Private vehicle, walking. History limitation: None. Additional information: Chief Complaint from Nursing Triage Note : Chief Complaint Description 06/18/2016 0:09 RADIO MACHINIST Chief Complaint Description patient state that she thinks she has a uti. is going more frequently and is having pain. states she just got off of amoxicillin on thursday for a sinus infection. . History of Present Illness The patient presents with dysuria, frequency and urgency. The onset was 1 days ago. The course/duration of symptoms is worsening and fluctuating in intensity. Radiating pain: none. The patient has chronic back aches.. The character of symptoms is burning and stinging. The degree at onset was minimal. The degree at present is moderate. The exacerbating factor is none. The relieving factor is none. Risk factors consist of The patient just recently finished amoxicillin for an upper respiratory infection. In addition, the patient has chronic renal failure (grade 4). Patient had a very significant episode of urosepsis approximately 1 year ago. She was treated with and combination of IV cephalosporin antibiotics. Based on sensitivity she was discharged on ciprofloxacin and apparently did quite well andhas not been troubled since. . Therapy today: none. Associated symptoms: voiding small amounts, denies fever, denies chills, denies nausea and denies abdominal pain. Review of Systems Constitutional symptoms: Negative except as documented in HPI, but no fever or no chills. Skin symptoms: Rash (The patient has some mild erin oral erythema). Eye symptoms: Negative except as documented in HPI. ENMT symptoms: Nasal congestion (This is markedly improved. Since taking the antibiotics.) and The patient is quite hard of hearing and uses hearing aids.. Respiratory symptoms: No shortness of breath or no cough. Cardiovascular symptoms: No chest pain. Gastrointestinal symptoms: No abdominal pain, no nausea, no vomiting or no diarrhea. Genitourinary symptoms: Dysuria. Musculoskeletal symptoms: Back pain (Chronic). Neurologic symptoms: No headache. Psychiatric symptoms: Anxiety. Hematologic/Lymphatic symptoms: Negative except as documented in HPI. Allergy/immunologic symptoms: Negative except as documented in HPI. Additional review of systems information: All other systems reviewed and otherwise negative, All systems reviewed as documented in chart. Health Status Allergies: Allergic Reactions (Selected) Severity Not Documented Septra- No reactions were documented. Zinc acetate containing compounds- Rash.. Past Medical/ Family/ Social History Medical history: Active Hypertension (HTN) Essential NOS (ICD-9-CM 401.9) Disease Gastroesophageal Reflux (GERD JAMEY) (ICD-9-CM 530.81) Chronic Renal Failure Stage IV GFR 15-29 (ICD-9-CM 585.4) Regurgitation Tricuspid NOS (ICD-9-CM 397.0) Depression NOS (ICD-9-CM 311). Surgical history: Cholecystectomy (37389174). Lumpectomy (9120235908). Appendectomy (434121614). Colonoscopy (848561154). Comments: 06/17/2016 10:03 - CHANO MO RN 2010 Mammogram ([id number]). Comments: 06/17/2016 10:03 - CHANO MO RN 2014. Family history: Myocardial infarction Son CVA - Cerebrovascular accident Brother Leukemia Mother . Social history: Alcohol use: Denies, Tobacco use: Denies, Occupation: Retired, Family/social situation: , lives alone. Physical Examination Vital Signs: Time: 06/18/2016 00:51:00, Vital Signs 06/18/2016 0:09 RADIO MACHINIST Temperature Core 36.7 DegC Peripheral Pulse Rate 83 /min Respiratory Rate 20 /min SpO2 99 % Limb Alert Question No Systolic Blood Pressure 153 mmHg HI Diastolic Blood Pressure 80 mmHg Mean Arterial Pressure 104 mmHg BP Location Right upper , SpO2 06/18/2016 0:09 RADIO MACHINIST SpO2 99 % . General: Alert, mild distress and anxious. Skin: Warm, dry and There is some mild perioral erythema. This is most prominent under the nares.. Head: Normocephalic. Cardiovascular: Regular rate and rhythm. Respiratory: Lungs are clear to auscultation. Gastrointestinal: Soft and Nontender. Back: Normal range of motion and No percussive tenderness over the costophrenic angles.. Psychiatric: Cooperative and appropriate mood & affect. Medical Decision Making Rationale:I am somewhat hesitant to start the antibiotic. She was however, discharged on ciprofloxacin a year ago without any incident. The urinary tract infection with sepsis (urosepsis) at that time when the patient was admitted was treated with IV cephalosporins and she was discharged on ciprofloxacin. she suffered no ill consequence from the use of the ciprofloxacin nor did she develop any subsequent C difficile enterocolitis. It is my presumption that the infecting organism may well be the same. Therefore, I will reinstitute a brief course of the same antibiotic at the lowest dose appropriate pending cultures and sensitivity.. OrdersLaunch Orders Laboratory: Urinalysis with Culture if Indicated (Order Processing): Stat, 06/18/2016 0:24 RADIO MACHINIST, Once, Urine, Clean Void (Midstream), Launch Orders Pharmacy: ciprofloxacin (Order Processing): 250 mg, PO, Once. Impression and Plan Diagnosis Chronic Kidney Disease (CKD) Stage 3 GFR 30-59 (Discharge, Emergency medicine, Nursing) Cystitis Acute (Discharge, Emergency medicine, Medical) Plan Condition: Stable. Disposition: Discharged: Time 06/18/2016 00:41:00, to home. Prescriptions: Prescription Medical Dermatologist Pharmacy: ciprofloxacin 250 mg oral tablet (Prescribe): 250 mg, 1 tab(s), PO, 2xDay, for 5 day(s), 10 tab(s), 0 Refill(s). Patient was given the following educational materials: BLADDER INFECTION, Female (Adult). Follow up with: BRITNEY BALDWIN Within 3 - 5 days Call for follow up appointment. For recheck.. Counseled: Patient, Family (Son), Regarding diagnosis, Regarding diagnostic results, Regarding treatment plan, Regarding prescription, Patient indicated understanding of instructions. Orders: Launch Orders Patient Care: Discharge ED Patient (Order Processing): 06/18/2016 0:44 RADIO MACHINIST, Once. Electronically Signed By: JORDAN PAZ MD On: 06/18/2016 12:54 AM Modified by and Electronically Signed by: JORDAN PAZ MD On: 06/18/2016 12:54 AM Source: [facility] [employer]ART Document Id: [id number]} O MACHINIST Rashmi Charles R.N. - 06/18/2016 12:20 AM CST ED Nurse Reassess ED Nurse Reassess Entered On: 06/18/2016 1:07 RADIO MACHINIST Performed On: 06/18/2016 0:20 RADIO MACHINIST by RASHMI CHARLES RN Pain Assessment Pain Symptoms : Yes RASHMI CHARLES RN - 06/18/2016 1:06 RADIO MACHINIST /OB Reassess Patient Stated Symptoms : Burning, Frequency Urine Description : Clear Urine Color : Yellow /OB Note : ua sent to lab RASHMI CHARLES RN - 06/18/2016 1:06 RADIO MACHINIST Source: [facility] [employer] Document Id: [id number] RADIO MACHINIST!8 O MACHINIST Rashmi Charles RAbimbola - 06/18/2016 12:09 AM CST ED Primary Assessment Document Has Been Updated ED Primary Assessment Entered On: 06/18/2016 0:15 RADIO MACHINIST Performed On: 06/18/2016 0:09 RADIO MACHINIST by RASHMI CHARLES RN Reason For Visit (As Of: 06/18/2016 00:15:49 RADIO MACHINIST) Problems(Active) Anemia Pers Hx (ICD-10-CM :Z86.2 ) Name of Problem: Anemia Pers Hx ; Recorder: CHANO MO RN; Confirmation: Confirmed ; Classification: Nursing ; Code: Z86.2 ; Contributor System: PowerChart ; LastUpdated: 06/17/2016 9:51 RADIO MACHINIST ; Life Cycle Date: 06/17/2016 ; Life Cycle Status: Active ; ResponsibleProvider: CHANO MO RN; Vocabulary: ICD-10-CM Arthritis Inflammatory (ICD-10-CM :M06.4 ) Name of Problem: Arthritis Inflammatory ; Recorder: CHANO MO RN; Confirmation: Confirmed ; Classification: Nursing ; Code: M06.4 ; Contributor System: [employer] ; Last Updated: 06/17/2016 9:57 RADIO MACHINIST ; Life Cycle Date: 06/17/2016 ; Life Cycle Status: Active ; Responsible Provider: CHANO MO RN; Vocabulary: ICD-10-CM Cerumen Impacted NOS (ICD-10-CM :H61.20 ) Name of Problem: Cerumen Impacted NOS ; Recorder: CHANO MO RN; Confirmation: Confirmed ; Classification: Nursing ; Code: H61.20 ; Contributor System: [employer] ; Last Updated: 06/17/2016 9:56 RADIO MACHINIST ; Life Cycle Date: 06/17/2016 ; Life Cycle Status: Active; Responsible Provider: CHANO MO RN; Vocabulary: ICD-10-CM Cervical Disc Disorder With Myelopathy (ICD-10-CM :M50.00 ) Name of Problem: Cervical Disc Disorder With Myelopathy ; Recorder: CHANO MO RN; Confirmation: Confirmed ; Classification: Nursing ; Code: M50.00 ; Contributor System: [employer] ; Last Updated: 06/17/2016 9:49 RADIO MACHINIST ; Life Cycle Date: 10/2016 ; Life Cycle Status: Active ; Responsible Provider: CHANO MO RN; Vocabulary: ICD-10-CM Chronic Kidney Disease (CKD) Stage 3 GFR 30-59 (ICD-10-CM :N18.3 ) Name of Problem: Chronic Kidney Disease (CKD) Stage 3 GFR 30-59 ; Recorder: CHANO MO RN; Confirmation: Confirmed ; Classification: Nursing ; Code: N18.3 ; Contributor System: [employer] ; Last Updated: 06/17/2016 9:56 RADIO MACHINIST ; Life Cycle Date: 06/17/2016 ; Life [...] System: PowerChart ; Last Updated: 06/17/2016 9:54 RADIO MACHINIST ; Life Cycle Date: 06/17/2016 ; Life [...] System: PowerChart ; Last Updated: 06/17/2016 9:54 RADIO MACHINIST ; Life Cycle Date: 06/17/2016 ; Life Cycle Status: Active ; Responsible Provider: CHANO MO RN; Vocabulary: ICD-10-CM Hyperlipidemia Mixed (ICD-10-CM :E78.2 ) Name of Problem: Hyperlipidemia Mixed ; Recorder: CHANO MO RN; Confirmation: Confirmed ; Classification: Nursing ; Code: E78.2 ; Contributor System: PowerChart ; Last Updated: 06/17/2016 9:56 RADIO MACHINIST ; Life Cycle Date: 06/17/2016 ; Life Cycle Status: Active ;Responsible Provider: CHANO MO RN; Vocabulary: ICD-10-CM Hypertension (HTN) Essential NOS [...] Lumbar Disc Disorder WithMyelopathy ; Recorder: CHANO OM RN; Confirmation: Confirmed ; Classification: Nursing ; Code: M51.06 ; Contributor System: PowerChart ; Last Updated: 06/17/2016 9:50 RADIO MACHINIST ; Life Cycle Date: 06/17/2016 ; Life Cycle Status: Active ; Responsible Provider: CHANO MO RN; Vocabulary: ICD-10-CM Osteoporosis NOS (ICD-10-CM :M81.0 ) Name of Problem: Osteoporosis NOS ; Recorder: CHANO MO RN; Confirmation: Confirmed ; Classification: Nursing ; Code: M81.0 ; Contributor System: PowerChart ; Last Updated: 06/17/2016 9:51 RADIO MACHINIST ; Life Cycle Date: 06/17/2016 ; Life Cycle Status: Active ; Responsible Provider: CHANO MO RN; Vocabulary: ICD-10-CM Pain Back NOS (ICD-10-CM :M54.9 ) Name of Problem: Pain Back NOS ; Recorder: CHANO MO RN; Confirmation: Confirmed ; Classification: Nursing ; Code: M54.9 ; Contributor System: PowerChart ; Last Updated: 06/17/2016 9:55 RADIO MACHINIST ; Life Cycle Date: 06/17/2016 ; Life Cycle Status: Active ; Responsible Provider: CHANO MO RN; Vocabulary: ICD-10-CM Pain Musculoskeletal NOS (ICD-10-CM :M79.1 ) Name of Problem: Pain Musculoskeletal NOS ; Recorder: CHANO MO RN; Confirmation: Confirmed ; Classification: Nursing ; Code: M79.1 ; Contributor System: PowerChart ; Last Updated: 06/17/2016 9:54 RADIO MACHINIST ; Life Cycle Date: 06/17/2016 ; Life Cycle Status: Active ; Responsible Provider: CHANO MO RN; Vocabulary: ICD-10-CM Rash NOS (ICD-10-CM :R21 ) Name of Problem: Rash NOS ; Recorder: CHANO MO RN; Confirmation: Confirmed ; Classification: Nursing ; Code: R21 ; Contributor System: [employer] ; Last Updated: 06/17/2016 9:57 RADIO MACHINIST ; Life Cycle Date: 06/17/2016 ; Life Cycle Status: Active ; Responsible Provider: CHANO MO RN; Vocabulary: ICD-10-CM 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 ) Name of Problem: Regurgitation Tricuspid NOS ; Recorder: JORDAN PAZ MD; Confirmation: Confirmed ; Classification: Medical ; Code: 397.0 ; Contributor System: [employer] ; Last Updated: 10/19/2014 21:38 CDT ; Life Cycle Date: 10/19/2014 ; Life CycleStatus: Active ; Vocabulary: ICD-9-CM Sclerosis Aortic Valve (ICD-10-CM :I35.8 ) Name of Problem: Sclerosis Aortic Valve ; Recorder: CHANO MO RN; Confirmation: Confirmed ; Classification: Nursing ; Code: I35.8 ; Contributor System: PowerChart ; Last Updated: 06/17/2016 9:52 RADIO MACHINIST ; Life Cycle Date: 06/17/2016 ; Life Cycle Status: Active ; Responsible Provider: CHANO MO RN; Vocabulary: ICD-10-CM Venous Disease (ICD-10-CM :I87.9 ) Name of Problem: Venous Disease ; Recorder: CHANO MO RN; Confirmation: Confirmed ; Classification: Nursing ; Code: I87.9 ; Contributor System: [employer] ; LastUpdated: 06/17/2016 9:53 RADIO MACHINIST ; Life Cycle Date: 06/17/2016 ; Life Cycle Status: Active ; ResponsibleProvider: CHANO MO RN; Vocabulary: ICD-10-CM Diagnoses(Active) Pain passing urine Date: 06/18/2016 ; Diagnosis Type: Reason For Visit ; Confirmation: Complaint of ; Clinical Dx: Pain passing urine ; Classification: Medical ; Clinical Service: Emergency medicine ; Code: PNED ; Probability: 0 ; Diagnosis Code: [id number] Triage Chief Complaint Description : patient state that she thinks she has a uti. is going more frequently and is having pain. states she just got off of amoxicillin on thursday for a sinus infection. Information Given By : Patient Present in Room During Exam/Procedure : Son Mode of Arrival ED : Private vehicle Track : Medical Languages : Spanish Vital Signs Assessed : Yes Treatments Prior to Arrival : None Is Patient Female and 13-50 no hysterectomy : No RASHMI CHARLES 06/18/2016 0:09 RADIO MACHINIST Vital Signs Temperature Core : 36.7 DegC(Converted to: 98.1 DegF) Limb Alert Question : No Peripheral Pulse Rate : 83 /min Respiratory Rate : 20 /min Systolic Blood Pressure : 153 mmHg (HI) Diastolic Blood Pressure : 80 mmHg NIBP Mean : 104 mmHg BP Location : Right upper extremity SpO2 : 99 % Oxygen Saturation Monitoring Frequency : Intermittent Oxygen Therapy : Room air RSAHMI CHARLES 06/18/2016 0:09 RADIO MACHINIST Pain Assessment Pain Symptoms : Yes RASHMI CHARLES 06/18/2016 0:09 RADIO MACHINIST Pain Scale Pain Scale Verbal 0-10 : Open RASHMI CHARLES 06/18/2016 0:09 RADIO MACHINIST Pain Pain Assessment Grid Pain 1 Location : Vagina Laterality : Bilateral Intensity : 9 Time Pattern : Acute, Constant, Intermittent Onset : Gradual Quality : Burning Aggravating Factors : Other: voiding RASHMI CHARLES RN 06/18/2016 0:09 RADIO MACHINIST JOANA JOANA Level 1 : No JOANA Level 2 : No JOANA Level 3 : One RASHMI CHARLES 06/18/2016 0:09 RADIO MACHINIST DCP GENERIC CODE Tracking Acuity : 4 -Less Urgent Tracking Group : MAQN ED RASHMI CHARLES 06/18/2016 0:09 RADIO MACHINIST Allergy Latex Reaction : No Latex Hives/Itch : No Latex Congestion/Eye Irr/Breathing : No Latex Symptom Progression : No Latex Previous Test : No RASHMI CHARLES 06/18/2016 0:09 RADIO MACHINIST (As Of: 06/18/2016 00:15:50 RADIO MACHINIST) Allergies (Active) Septra Estimated Onset Date: Unspecified ; Created By: STEFANIE BALDWIN MD; Reaction Status: Active ; Category: Drug ; Substance: Septra ; Type: Allergy ; Updated By: STEFANIE BALDWIN MD; Reviewed Date: 06/18/2016 0:11 RADIO MACHINIST zinc acetate containing compounds Estimated Onset Date: Unspecified ; Reactions: rash ; Created By: GAGAN TRAN AIR BAG BUILDER; Reaction Status: Active ; Category: Drug ; Substance: zinc acetate containing compounds ; Type: Allergy ; Updated By: GAGAN TRAN [facility]; Reviewed Date: 06/18/2016 0:11 RADIO MACHINIST ID Screen Drug Resistant Organism : No RASHMI CHARLES RN - 06/18/2016 0:09 RADIO MACHINIST Immunizations Immunizations Current : Yes RASHMI CHARLES RN - 06/18/2016 0:09 RADIO MACHINIST Respiratory Airway : Patent Respirations : Unlabored Respiratory Pattern : Regular RASHMI CHARLES RN - 06/18/2016 0:09 RADIO MACHINIST Cardiovascular Heart Rhythm : Regular Skin Color : [place] Skin Description : Rash Skin Temperature : Warm RASHMI CHARLES RN - 06/18/2016 0:09 RADIO MACHINIST Neurological Last Well Time Known : Not applicable Level of Consciousness : Alert Orientation : Oriented x 3 Characteristics of Speech : Appropriate for age RASHMI CHARLES RN - 06/18/2016 0:09 RADIO MACHINIST ED Psychosocial Affect/Behavior : Calm, Cooperative Domestic Abuse Concerns : None Behavioral Health Screen/Safety Assmt : No RASHMI CHARLES RN - 06/18/2016 0:09 RADIO MACHINIST Gastrointestinal Nutrition ED : Adequate RASHMI CHARLES RN - 06/18/2016 0:09 RADIO MACHINIST Integumentary Integumentary Patient Stated Symptoms : Rash Skin Turgor : Elastic Integ Note : red rash around mouth, on chin and upper lip. red and raw. RASHMI CHARLES RN - 06/18/2016 0:09 RADIO MACHINIST Musculoskeletal Fall Prevention Education Provided : RASHMI RYAN RN - 06/18/2016 0:09 RADIO MACHINIST Social Habits Exposure to Tobacco Smoke : Care provider denies smoking in home Smoking Status : Never smoker Tobacco 2A : No Tobacco Use/Currently Using : No Tobacco Use/Last 30 Days : No Tobacco Use/Last 12 months : No Tobacco Last Use/Year : 1968 RASHMI CHARLES RN - 06/18/2016 0:09 RADIO MACHINIST Source: [facility] POWERCHART Document Id: [id number] RADIO MACHINIST!88 O MACHINIST documented in this encounter Miscellaneous Notes Miscellaneous - Rashmi Charles R.N. - 06/18/2016 1:00 AM CST Valuables/Belongings Valuables/Belongings Entered On: 06/18/2016 1:08 RADIO MACHINIST Performed On: 06/18/2016 1:00 RADIO MACHINIST by RASHMI CHARLES RN Valuables/Belongings Room Orientation/Facility Policy Reviewed : Yes Belongings Sent Home With : patient Home Medication Disposition : None brought in with patient RASHMI CHARLES RN - 06/18/2016 1:08 RADIO MACHINIST Source: [employer] Document Id: [id number] RADIO MACHINIST!5 O MACHINIST Miscellaneous - Conversion, Historical Provider Ser - 06/18/2016 1:00 AM RADIO MACHINIST Coding Summary-Paper Based CODING DATE: 06/26/[address] 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 However, the narrative phrase printed from the coding software may appear abbreviated, or result in slightly different terminology. Coded By: CHANO VERA Date Saved: 06/26/2016 12:47 pm Source: [employer] Document Id: [id number] Miscellaneous - Rashmi Charles R.N. - 06/18/2016 12:03 AM CST Facility Charge Ticket 2.0 11.0 DX Facility Charge Ticket 2.0 11.0 DX Entered On: 06/18/2016 1:08 RADIO MACHINIST Performed On: 06/18/2016 0:03 RADIO MACHINIST by RASHMI CHARLES RN Facility Charge Ticket 2.0 11.0 DX ED Other Charges : Standard ED Encounter TVL Level Translated RTF : Pain passing urine TVL:3 TVL Level for Facility Charge Ticket : Level 3 Arrival Mode Calc : 1 Mode of Arrival ED : Private vehicle [facility] Mode of Arrival Interpreted : Standard [facility] Process Management : None Order Management RTF : Laboratory Urinalysis with Culture if Indicated,06/18/16 00:24,JORDAN PAZ MD Completed Culture Urine,06/18/16 00:41,JORDAN PAZ MD Ordered [facility] Order Management : Lab tests 30 Minutes Critical Care : No Nursing Notes RTF : Nursing Notes ED Primary Assessment,06/18/16 00:09,RASHMI CHARLES SET OFF PRESS OPERATOR Nurse Reassess,06/18/16 00:50,RASHMI CHARLES SET OFF PRESS OPERATOR Nurse Reassess,06/18/16 00:20,RASHMI CHARLES RN [facility] Nursing Assessment : Triage and 1-2 nursing assessments [facility] Disposition : Discharge Disposition RTF : discharge [facility] Total Points with Diagnosis Control : 6 [facility] Visit Level : 93674 Level 3 Treatments Prior to Arrival : None RASHMI CHARLES RN - 06/18/2016 1:08 RADIO MACHINIST Source: [facility] POWERCHART Document Id: [id number] RADIO MACHINIST!19 O MACHINIST documented in this encounter Plan of Treatment Not on filedocumented as of this encounter Procedures Procedure Name Priority Date/Time Associated Diagnosis Comme nts BACTERIAL CULTURE, Routine 06/18/2016 12:41 AM Re sults for this AEROBIC, URINE RADIO MACHINIST procedure are in the results section. URINALYSIS, Routine 06/18/2016 12:21 AM Results for this MIDSTREAM, WITH RADIO MACHINIST procedure ar e in CULTURE IF the results INDICATED section. documented in this encounter Results Bacterial Culture, Aerobic, Urine (06/18/2016 12:41 AM RADIO MACHINIST) Analysis Performed At [facility] Time Signature Bacterial POWERCHART Culture, Aerobic, Urine HXFinal No growth POWERCHART Specimen Anatomical Collection Method Collection Time Receive d Time (Source) Location / / Volume Laterality Urine, First 06/18/2016 12:41 06/18/2016 Voided AM RADIO MACHINIST 12:41 AM RADIO MACHINIST Jordan Paz M.D. LAB MICROBIOLOGY - GENERAL O RDERABLES Performing Organization Address City/State/ZIP Code Phon e Number POWERCHART (ABNORMAL) Urinalysis, Midstream, with culture if indicated (06/18/2016 12:21 AM RADIO MACHINIST) [facility] Method Time Signature HXUr Color Yellow Colorless POWERCHART Clarity Clear Clear POWERCHART Glucose Negative Negative MGDL POWERCHART HXBILIRUBIN Negative Negative POWERCHART Ketones, QL(U) Negative Negative MGDL POWERCHART Specific 1.025 POWERCHART [place], POCT, U Comment: Reference Range Specific [place]: 1.000-1.035 HXBLOOD Trace (A) Negative POWERCHART pH, POCT, Urine 5.0 <5.0 POWERCHART Comment: Reference Range pH: 5.0-8.0 Protein, Ur, Dip Negative Negative MGDL POWERCHAR T Urobilinogen 0.2 0.2 MGDL POWERCHART Comment: Reference Range Urobilinogen: 0.2-1.0 mg/dL HXNITRITE Negative Negative POWERCHART Leukocyte Esterase Trace (A) Negative POWERCHART HXUR WBC. 21-30 (A) None Seen HPF POWERCHART HXUR RBC. Occ-2 None Seen HPF POWERCHART HXUR Bacteria, Present (A) None Seen POWERCHART Mucus Present (A) None Seen POWERCHART Casts, Hyaline 1-3 (A) None Seen LPF POWERCHART Specimen (Source) Anatomical Collection Method Collection Time Re ceived Time Location / / Volume Laterality Urine, First 06/18/2016 12:21 Voided AM RADIO MACHINIST Jordan Paz M.D. LAB URINE ORDERABLES Performing Organization Address City/State/[facility] Code Phon e Number POWERCHART documented in this encounter Visit Diagnoses Not on filedocumented in this encounter
--- OUTSIDE RECORDS SUMMARY | 2022-01-19 14:58 | XMS_ITS | Encounter Summary ---
:1935 Author Organization [facility] Address [address] [place] [address] Care Team Providers Name Role Phone Unavailable Primary Care Provider Unavailable Encounter Details Date Type Department Care Team Description 02/04/2015 Hospital Encounter HX [facility] NEYMAR KATHERINEDiamond Galaviz APRN, C.N.P. [address] [place] [phone] (Wo rk) Social History Tobacco Use Types Packs/Day Years Used Date Smoking Tobacco: Never Assessed Sex Assigned at Date Recorded Not on file documented as of this encounter Last Filed Vital Signs Vital Sign Reading Time Taken Comments Blood Pressure 128/58 02/04/2015 11:57 AM CDT Pulse 83 02/04/2015 11:57 AM CDT Temperature - - Respiratory Rate - - [...] geriatric Take 1 tablet by 0 01/30/2015 fawbdqkk-fist-gzpo tablet mouth daily. simvastatin (ZOCOR) 10 mg Take 10 mg by 0 015 tablet mouth at bedtime. raNITIdine (ZANTAC) 150 mg 150 mg. 0 5 07/23/2020 tablet documented as of this encounter Progress Notes Shannan Whipple APRN, C.N.P. - 02/04/2015 11:50 AM CDT [id number] CHIEF COMPLAINT/REASON FOR VISIT Cough. HISTORY OF PRESENT ILLNESS This pleasant 79-year-old female presents to clinic today with an obvious cough which started over the past 24 hours. She awakened this morning, noted lost- laryngetic voice. Presents today for further evaluation. She was supposed to attend a baby shower today and her daughter recommended that she comein for further evaluation of her cough. The patient has been eating and drinking within normal limits. Her appetite is good. She did vomit one time 5 days ago which she felt like was perhaps a stomach flu. Those symptoms have since subsided. Her cough, congestion, watery eyes have been occurring over the past 24 hours. She does not have a headache. MEDICATIONS Include: Raloxifene 60 mg for muscle spasms. Centrum Silver. Simvastatin. Vitamin D3. Ranitidine. The patient does have trazodone noted on her med list. She denies currently taking the trazodone. ALLERGIES Include ZINC AND SULFA MEDICATIONS as noted in electronic medical record [facility]. PAST MEDICAL/SURGICAL HISTORY In October of 2014 was hospitalized for 10 days for what sounds like sepsis following a urinary tract infection. SYSTEMS REVIEW Review of systems as noted above. PRIMARY CARE PROVIDER: Dr. Ed Belle, [facility]. She did not receive her flu shot yet this season. VITAL SIGNS: Temperature is 36.6, pulse is 83, blood pressure is 128/58, O2 saturations 98%. PHYSICAL EXAMINATION GENERAL: Reveals a pleasant, 79-year-old female. SKIN: Generally is warm, dry and intact. TEMPERATURE: Afebrile at 36.6 degrees Celsius. HEENT: Head is normocephalic. Eyes: Conjunctivae are clear bilaterally. Pupils are equal, reactive to light. Ears are dull and intact bilaterally. Throat posteriorly, postnasal drip on pink base. Nose:Nasal alae are erythremic, nasal rhinitis is clear colored. LYMPH: Neck is supple. LUNGS: Clear anterior posterior throughout. O2 sats 98%. No shortness of breath. Respirations are 16, nonlabored, no evidence of wheezing on auscultation. EXTREMITIES: Full range of motion upper and lower extremities. MENTAL STATUS: Alert, oriented, pleasant. IMPRESSION/REPORT/PLAN Viral syndrome. PLAN: Continue symptomatic relief measures. Increase exposure to warm moisture, frequent teas, broths, showers. Follow up if symptoms would persist an additional 3 days, sooner if symptoms would worsen, with primary care provider. May return to [facility] as desires in the future for minor ailments.The patient is discharged in stable condition. Given written information outlining the details of today's visit. Shannan Whipple APRN, C.N.PXenia/pos Electronically Signed By: SHANNAN WHIPPLE PLANT PULLER On: 02/09/2015 08:17 AM Modified by and Electronically Signed by: SHANNAN WHIPPLE PLANT PULLER On: 02/09/2015 08:17 AM Source: [facility] MHSDOLBEYNONRADSYS Document Id: [id number] documented in this encounter Nursing Notes Shannan Whipple APRN, C.NGrey. - 02/04/2015 12:18 PM CDT Ambulatory Patient Education The following Patient Education Materials have been given to the patient: Patient Education Materials: Ambulatory VIRAL SYNDROME (Adult) Ambulatory Viral Syndrome (Adult) A viral illness may cause a number of symptoms. The symptoms depend on the part of the body that thevirus affects. If it settles in the nose, throat, and lungs, it may cause cough, sore throat, congestion, and sometimes headache. If it settles in the stomach and intestinal tract, it may cause vomiting and diarrhea. Sometimes it causes vague symptoms like aching all over, feeling tired, loss of appetite, or fever. A viral illness usually lasts 1 to 2 weeks, but sometimes it lasts longer. In some cases, a more serious infection can look like a viral syndrome in the first few days of the illness. You may need another exam and additional tests to know the difference. Watch for the warning signs listed below. Home care Follow these guidelines for taking care of yourself at home: ?? If symptoms are severe, rest at home for the first 2 to 3 days. ?? Stay away from cigarette smoke - both your smoke and the smoke from others. ?? You may use acetaminophen or ibuprofen for fever, muscle aching, and headache, unless another medicine was prescribed for this. If you have chronic liver or kidney disease or ever had a stomach ulcer or GI bleeding, talk with your doctor before using these medicines No one who is younger than 18 and ill with a fever should take aspirin. It may cause severe liver damage. ?? Your appetite may be poor, so a light diet is fine. Avoid dehydration by drinking 8 to 12 8-ounceglasses of fluids each day. This may include water; orange juice; lemonade; apple, grape, and cranberry juice; clear fruit drinks; electrolyte replacement and sports drinks; and decaffeinated teas and coffee. If you have been diagnosed with a kidney disease, ask your doctor how much and what types of fluids you should drink to prevent dehydration. If you have kidney disease, drinking too much fluid can cause it build up in the your body and be dangerous to your health. ?? Nerj-krj-bwbnhoc remedies won't shorten the length of the illness but may be helpful for cough, sore throat; and nasal and sinus congestion. Don't use decongestants if you have high blood pressure. Follow-up care Follow up with your health care provider if you do not improve over the next week. When to seek medical care Get prompt medical attention if any of these occur: ?? Cough with lots of colored sputum (mucus) or blood in your sputum ?? Chest pain, shortness of breath, wheezing, or difficulty breathing ?? Severe headache; face, neck, or ear pain ?? Severe, constant pain in the lower right side of your belly (abdominal) ?? Continued vomiting (cant keep liquids down) ?? Frequent diarrhea (more than 5 times a day); blood (red or black color) or mucus in diarrhea ?? Feeling weak, dizzy, or like you are going to faint ?? Extreme thirst ?? Fever of 100.4?? F (38?? C) oral or higher, not better with fever medication ?? Convulsion ?? [phone] [facility], [address] [place] [address], [place] [address]. All rights reserved. This information is not intended as a substitute for professional medical care. Always follow your healthcare professional's instructions. Source: [facility] POWERCHART Document Id: [id number] Shannan Whipple APRN, C.N.PXenia - 02/04/2015 12:18 PM CDT Ambulatory Patient Education The following Patient Education Materials have been given to the patient: Patient Education Materials: Source: [facility] POWERCHART Document Id: [id number] documented in this encounter Miscellaneous Notes Miscellaneous - Andree Aquino C.M.A. 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 Recovery Intake/History Entered On: 02/04/2015 12:00 CDT Performed On: 02/04/2015 11:57 CDT by ANDREE AQUINO Intake Chief Complaint : coughing, has lost her voice Onset of Symptoms : yesterday afternoon Ambulatory Intake Additional Information : nothing OTC today Temperature Core : 36.6 DegC(Converted to: 97.9 DegF) Limb Alert Question : No Peripheral Pulse Rate : 83 /min Systolic Blood Pressure : 128 mmHg Diastolic Blood Pressure : 58 mmHg NIBP Mean : 81 mmHg BP Location : Left upper extremity Blood Pressure Cuff Size : Regular SpO2 : 98 % ANDREE AQUINO - 02/04/2015 11:57 CDT General Info Information Given By : Patient Preferred Communication Mode : Verbal Languages : Uzbek Is Patient Female and 13-50 no hysterectomy : No ANDREE AQUINO - 02/04/2015 11:57 CDT Subjective Pain Symptoms : Yes ANDREE AQUINO - 02/04/2015 11:57 CDT Pain Scale Pain Scale Verbal 0-10 : Open ANDREE AQUINO 02/04/2015 11:57 CDT Pain Pain Assessment Grid Pain 1 Location : Throat ANDREE AQUINO - 02/04/2015 11:57 CDT Dependent Habits Tobacco Use/Currently Using : No Exposure to Tobacco Smoke : Care provider denies smoking in home Smoking Status : Never smoker ANDREE AQUINO 02/04/2015 11:57 CDT Caffeine Use Grid Caffeine Use : Current Type : Coffee, Soft drinks, Tea Frequency : Daily Amount : 1 cup ANDREE AQUINO 02/04/2015 11:57 CDT Source: [facility] [employer] Document Id: [id number] CDT!37 documented in this encounter Plan of Treatment Not on filedocumented as of this encounter Visit Diagnoses Not on filedocumented in this encounter
--- OUTSIDE RECORDS SUMMARY | 2022-01-19 14:58 | XMS_ITS | Encounter Summary ---
:1935 Author Organization [facility] Address [address] [place] [address] Care Team Providers Name Role Phone Unavailable Primary Care Provider Unavailable Encounter Details Date Type Department Care Team Description 10/19/2014 Hospital Encounter HX [facility] Lydia Casey M.D. [address] [place] [address] [phone] (Wo rk) Social History Tobacco Use Types Packs/Day Years Used Date Smoking Tobacco: Never Assessed Sex Assigned at Date Recorded Not on file documented as of this encounter Last Filed Vital Signs Vital Sign Reading Time Taken Comments Blood Pressure 91/47 10/19/2014 10:06 PM CDT Pulse 100 10/19/2014 6:00 PM CDT Temperature - - Respiratory Rate 14 10/19/2014 10:06 PM CDT Oxygen Saturation - - Inhaled Oxygen Concentration - - Weight - - Height 170.2 cm (5' 7) 10/19/2014 10:06 PM CDT Body Mass Index - - documented in this encounter Discharge Summaries Pema Cox R.N. - 10/19/2014 11:08 PM CDT ED Discharge Instructions [facility] [address] [place] [address] Name: KAROLINE NUÑEZ Date of : 1935 12:00 AM Visit Date: 10/19/2014 5:11 PM [facility] Number: [id number] Address: [address] [place] [phone] Primary Care Provider: BRITNEY BALDWIN MD IMPORTANT: [facility] in [place] would like to thank you for allowing us to assistyou with your healthcare needs. The following includes patient education materials and information regarding your injury/illness. Diagnosis: Chronic Renal Failure Stage IV GFR 15-29; Fibrillation Atrial Paroxysmal (PAF); Hypotension NOS; Urosepsis Follow-Up Instructions: Your Upcoming Appointments: Date Time Location Provider No Appointments found Patient Education Materials: Consider Using Patient Online Services Patient Online [...] if you dont have one. Go to [email or web address] and click on Create Your Account. Then, follow the directions to complete the online form. Youll be asked for your [facility] number which you can find at the top of this document. ED Tests and Procedures: Order Status CBC (includes Auto Differential) Completed Comprehensive Metabolic Panel Completed Magnesium Level Completed Pro B Natriuretic Peptide Completed PT/INR Completed Troponin T Completed Urinalysis with Culture if Indicated Completed XR Chest 1 view portable Completed UR % Dysmorphic RBC Completed EKG-Lab Completed Automated Diff-5 Part Canceled EKG-Lab Completed Communication to Lab Completed Manual Differential Completed Culture Urine Ordered Culture Blood Ordered Lactic Acid Completed Discharge Prescriptions & Home Medications: Medication/Strength Dose Route Frequency Indications/Special Instructions/Comments/Notes raloxifene (raloxifene 60 mg oral tablet) 60 mg Oral once a day orphenadrine (orphenadrine 100 mg oral tablet, extended release) 100 mg Oral as needed *omeprazole (PriLOSEC 10 mg oral delayed release capsule) 10 mg Oral once a day hydrochlorothiazide (hydrochlorothiazide 25 mg oral tablet) 25 mg Oral once a day aspirin (aspirin 81 mg oral delayed release tablet) 81 mg Oral once a day multivitamin with minerals (Centrum Silver Women's oral tablet) cholecalciferol (Vitamin D3 1000 intl units oral tablet) 1,000 IntU Oral once a day lisinopril (lisinopril 2.5 mg oral tablet) 2.5 mg Oral once a day simvastatin (simvastatin 20 mg oral tablet) 20 mg Oral once a day (at bedtime) * You have let us know that [...] arrange a ride home with a responsible green party. SUDHA France ALICE ROSE , or responsible green party have received this information and my questions [...] arrange a ride home with a responsible green party. I, KAROLINE NUÑEZ , or responsible green party have received this information and my questions have been answered. I have discussed any challenges I see with this plan with the nurse or physician. Patient Signature or Responsible Alliance Party/Relationship Date Time Provider Signature Date Time Source: [facility] POWERCHART Document Id: [id number] Pema Cox R.N. - 10/19/2014 11:08 PM CDT ED Depart Summary [facility] Emergency Department Clinical Discharge Summary PERSON INFORMATION Name KAROLINE NUÑEZ Age 78 Years 1935 12:00 AM Sex Female Language Wolof PCP BRITNEY BALDWIN MD Marital Status Visit Id Visit Reason Syncope/Near syncope; A FIB AND UTI Specialty Enc Type Emergency Med Service Emergency Medicine Referred by Track [facility] MAQN ED Discharge 10/19/2014 10:20 PM Tracking Id [id number] Checkout 10/19/2014 10:20 PM Checkin 10/19/2014 5:11 PM Acuity 2 -Emergent Dispo Type Admitted as Inpatient to this Hospital Arrival 10/19/2014 5:11 PM Reg Status LOS 000 05:09 Address: [address] [place] [phone] Comment: PROVIDER INFORMATION Provider Role Provider Contact Time JORDAN HOLBROOK MD ED Provider 10/19/14 17:21 JOSE REYES RN ED Nurse 10/19/14 17:40 PEMA COX RN ED Nurse 10/19/14 19:09 DIAGNOSIS Chronic Renal Failure Stage IV GFR 15-; Fibrillation Atrial Paroxysmal (PAF); Hypotension NOS; Urosepsis Comment: PATIENT EDUCATION INFORMATION Instructions: Follow up: Source: [facility] ObjectWay Document Id: [id number] documented in this encounter ED Notes Pema Cox R.N. - 10/19/2014 10:20 PM CDT ED Disposition Summary ED Disposition Summary Entered On: 10/19/2014 23:06 CDT Performed On: 10/19/2014 22:20 CDT by PEMA COX RN ED Disposition Summary Accompanied By : Daughter, Son Mode of Discharge : Stretcher Nurse Receiving Report : Shaina Zapata Date/Time Nurse Received Report : 10/19/2014 22:10 CDT Transporter : RN Printed Discharge Instructions Given to Patient : No Reason Discharge Instructions Not Given : Pt admitted Patient Status at Discharge from ED : Improved PEMA COX RN - 10/19/2014 23:05 CDT Source: [facility] [employer] Document Id: [id number] CDT!10 Pema Cox R.N. - 10/19/2014 10:07 PM CDT ED Nurse Reassess ED Nurse Reassess Entered On: 10/19/2014 22:07 CDT Performed On: 10/19/2014 22:07 CDT by PEMA COX RN Pain Assessment Pain Symptoms : No PEMA COX RN - 10/19/2014 22:07 CDT Comfort Measures Patient Response : IV antibiotics started. pt. to be transferred to PCU Comfort Measures Response : Comfort level increased PEMA COX RN - 10/19/2014 22:07 CDT CV Reassess CV Patient Stated Symptoms : None Cardiac Rhythm : Sinus rhythm PEMA COX RN - 10/19/2014 22:07 CDT Source: [facility] Document Id: [id number] CDT!4 Pema Cox R.N. - 10/19/2014 9:22 PM CDT ED Nurse Reassess ED Nurse Reassess Entered On: 10/19/2014 21:23 CDT Performed On: 10/19/2014 21:22 CDT by PEMA COX RN Pain Assessment Pain Symptoms : No PEMA COX RN - 10/19/2014 21:22 CDT Comfort Measures Patient Response : Pt resting quietly with family at bedside. Additional orders rec'd and plan is toadmit pt. to PCU. PEMA COX RN - 10/19/2014 21:22 CDT Source: [facility] Document Id: [id number] CDT!5 Pema Cox R.N. - 10/19/2014 8:05 PM CDT ED Nurse Reassess ED Nurse Reassess Entered On: 10/19/2014 20:23 CDT Performed On: 10/19/2014 20:05 CDT by PEMA COX RN Pain Assessment Pain Symptoms : No PEMA COX RN - 10/19/2014 20:22 CDT Comfort Measures Comfort Measures Response : Comfort level increased PEMA COX RN - 10/19/2014 20:22 CDT CV Reassess Cardiovascular Note : Pt hypotensive with SBP running 80's on occasion. Pt. denies symptoms while lying on the cot. PEMA COX RN - 10/19/2014 20:22 CDT Source: [facility] Document Id: [id number] CDT!7 Pema Cox R.N. - 10/19/2014 7:10 PM CDT ED Nurse Reassess ED Nurse Reassess Entered On: 10/19/2014 19:14 CDT Performed On: 10/19/2014 19:10 CDT by PEMA COX RN Pain Assessment Pain Symptoms : No PEMA COX RN - 10/19/2014 19:10 CDT Comfort Measures Patient Response : Pt states that she is feeling OK. Comfort Measures Response : Comfort level increased PEMA COX RN - 10/19/2014 19:10 CDT CV Reassess Heart Rhythm : Regular Monitoring Lead : II Cardiac Rhythm : Sinus rhythm Cardiovascular Note : Pt had converted to SR while here and feeling better. Denies nausea at this time. PEMA COX RN - 10/19/2014 19:10 CDT Neuro Reassess Last Well Time Known : Not applicable Orientation : Oriented x 3 Characteristics of Speech : Appropriate for age Level of Consciousness : Alert Neuro Patient Stated Symptoms : None PEMA COX RN - 10/19/2014 19:10 CDT GI Reassess GI Patient Stated Symptoms : None PEMA COX RN - 10/19/2014 19:10 CDT Source: [facility] Document Id: [id number] CDT!19 Jose Reyes R.N. - 10/19/2014 6:11 PM CDT ED Nurse Reassess ED Nurse Reassess Entered On: 10/19/2014 18:11 CDT Performed On: 10/19/2014 18:11 CDT by JOSE REYES RN Pain Assessment Pain Symptoms : No JOSE REYES RN - 10/19/2014 18:11 CDT Comfort Measures Comfort Measures Grid Quiet Environment : Yes Relaxation : Yes JOSE REYES RN - 10/19/2014 18:11 CDT Source: [facility] POWERCHART Document Id: [id number] CDT!7 Jordan Holbrook M.D. - 10/19/2014 5:39 PM CDT Syncope/Near syncope, Critical care note *ED Patient: KAROLINE NUÑEZ Age: 78 years Sex: Female : 1935 Author: JORDAN HOLBROOK MD Attachments: None Associated Diagnosis: Chronic Renal Failure Stage IV GFR 15-29; Fibrillation Atrial Paroxysmal (PAF); Hypotension NOS; Urosepsis Basic Information Time seen: Date & time 10/19/2014 17:40:00. History source: Patient. Arrival mode: Private vehicle, walking. History limitation: None. History of Present Illness The patient presents with dizziness. The onset was just prior to arrival and The patient was seen inclinic and found to be in atrial fibrillation and to have a UTI. She was sent home on Warfarin, Cipro, and Atenolol. She was very dizzy and actually had emesis so was only able to take the first dose of Cipro and neither of the other agents. She was sent by Dr Gaffney for further evaluation.. The course/duration of symptoms is worsening. The location where the incident occurred was at home. There are exacerbating factors including exertion and sitting. The relieving factor is none. Risk factors consist of hypertension and dysrhythmia. Prior episodes: none. Therapy today: doctor's office visit. Pre ceding symptoms: lightheaded nausea. Associated symptoms: nausea, vomiting and fever. Associated injury to the none. Review of Systems Constitutional symptoms: Fever (low grade), but no chills. Skin symptoms: Negative except as documented in HPI, but no rash. Eye symptoms: Negative except as documented in HPI. ENMT symptoms: Negative except as documented in HPI. Respiratory symptoms: No shortness of breath or no cough. Cardiovascular symptoms: Tachycardia, but no chest pain. Gastrointestinal symptoms: Nausea and vomiting, but no abdominal pain or no diarrhea. Genitourinary symptoms: Excessive urination, urinary incontinence, nocturia and Upon reflection the patient and family believe she has been troubled with bladder difficulties for several weeks if not amonth or two.. Musculoskeletal symptoms: Negative except as documented in HPI. Neurologic symptoms: Dizziness and weakness, but no headache. Endocrine symptoms: Polyuria. Allergy/immunologic symptoms: Negative except as documented in HPI. Additional review of systems information: All other systems reviewed and otherwise negative, All systems reviewed as documented in chart. Health Status Allergies: Allergic Reactions (Selected) Severity Not Documented Zinc acetate containing compounds- Rash.. Past Medical/ Family/ Social History Medical history: Active Hypertension (HTN) Essential NOS (ICD-9-CM 401.9) Disease Gastroesophageal Reflux (GERD JAMEY) (ICD-9-CM 530.81) Regurgitation Tricuspid NOS (ICD-9-CM 397.0) Depression NOS (ICD-9-CM 311) Chronic Renal Failure Stage IV GFR 15-29 (ICD-9-CM 585.4). Surgical history: No active procedure history items have been selected or recorded.. Family history: No family history items have been selected or recorded.. Social history: Alcohol use: Denies, Tobacco use: Denies, Occupation: Retired, Family/social situation: . Physical Examination Vital Signs: Time: 10/19/2014 18:00:00, Vital Signs 10/19/2014 21:31 CDT Apical Heart Rate 77 /min Respiratory Rate 14 /min SpO2 95 % Systolic Blood Pressure 85 mmHg <LLOW Diastolic Blood Pressure 43 mmHg <LLOW BP Location Right upper 10/19/2014 21:00 CDT Temperature Core 38.0 DegC Apical Heart Rate 79 /min Respiratory Rate 16 /min SpO2 96 % Systolic Blood Pressure 88 mmHg <LLOW Diastolic Blood Pressure 38 mmHg <LLOW BP Location Right upper 10/19/2014 20:11 CDT Apical Heart Rate 85 /min Respiratory Rate 18 /min SpO2 95 % Systolic Blood Pressure 81 mmHg <LLOW Diastolic Blood Pressure 47 mmHg <LLOW BP Location Right upper 10/19/2014 19:15 CDT Apical Heart Rate 91 /min Respiratory Rate 16 /min SpO2 96 % Systolic Blood Pressure 102 mmHg Diastolic Blood Pressure 57 mmHg BP Location Right upper 10/19/2014 18:45 CDT Apical Heart Rate 93 /min Respiratory Rate 16 /min SpO2 96 % Systolic Blood Pressure 95 mmHg Diastolic Blood Pressure 47 mmHg <LLOW BP Location Left upper 10/19/2014 18:00 CDT Peripheral Pulse Rate 100 /min SpO2 98 % Systolic Blood Pressure 97 mmHg Diastolic Blood Pressure 51 mmHg (Modified) BP Location Left upper 10/19/2014 17:32 CDT Temperature Core 37.6 DegC Peripheral Pulse Rate 156 /min >HHI Respiratory Rate 16 /min SpO2 96 % Systolic Blood Pressure 89 mmHg <LLOW Diastolic Blood Pressure 56 mmHg Mean Arterial Pressure 67 mmHg BP Location Right upper . General: Alert, moderate distress, anxious and ill-appearing. Lincoln coma scale: Total score: Total score: 15. Neurological: Alert and oriented to person, place, time, and situation. Skin: Warm, dry and no rash. Head: Normocephalic. Neck: Supple and no JVD. Eye: Pupils are equal, round and reactive to light. Ears, nose, mouth and throat: Oral mucosa moist. Cardiovascular: No edema, irregularly irregular rhythm and Tachycardia. Respiratory: Lungs are clear to auscultation and respirations are non-labored. Gastrointestinal: Soft and Nontender. Genitourinary: No tenderness. Back: Normal range of motion. Musculoskeletal: Normal ROM Psychiatric: Cooperative. Medical Decision Making OrdersLaunch Orders Laboratory: Urinalysis with Culture if Indicated (Order Processing): Stat, 10/19/2014 18:17 CDT, Once, Urine, Clean Void (Midstream) Troponin T (Order Processing): Stat, 10/19/2014 18:17 CDT, Once PT/INR (Order Processing): Stat, 10/19/2014 18:17 CDT, Once Pro B Natriuretic Peptide (Order Processing): Stat, 10/19/2014 18:17 CDT, Once Magnesium Level (Order Processing): Stat, 10/19/2014 18:17 CDT, Once Comprehensive Metabolic Panel (Order Processing): Stat, 10/19/2014 18:17 CDT, Once CBC (includes Auto Differential) (Order Processing): Stat, 10/19/2014 18:17 CDT, Once Pharmacy: Zofran (Order Processing): 4 mg, IV Push, Once diltiazem (Order Processing): 20 mg, IV Push, Once Sodium Chloride 0.9% 1000 mL (Order Processing): 100 mL/hr, IV Saline bolus (Order Processing): 300 mL, IVPB, Once Radiology: XR Chest 1 view portable (Order Processing): 10/19/2014 18:18 CDT, dyspnea and Atrial fibrillation, Stat, Patient Bed, Once, 10/19/2014 18:18 CDT, MAQN ED Diagnostic Tests: EKG (Order Processing): 10/19/2014 18:17 CDT, Reason: EKG, Stat, Stat, MAQN ED, Launch Orders Laboratory: Communication to Lab (Order Processing): 10/19/2014 21:16 CDT, Urine Culture please, Launch Orders Laboratory: Lactic Acid (Order Processing): Stat, 10/19/2014 21:17 CDT, Once Blood Culture (Order Processing): Stat, 10/19/2014 21:16 CDT, Launch Orders Patient Care: ED Sepsis ABX - Known Source (Order Processing) Pharmacy: piperacillin-tazobactam (Order Processing): 4.5 gm, IVPB, Once ciprofloxacin (Order Processing): 400 mg, IVPB, Once, Launch Orders Pharmacy: diltiazem (Discontinue Processing): 20 mg, 4 mL, IV Push, Once. 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 Results review:Lab results : Lab View 10/19/2014 18:50 CDT UA Color Yellow UA Clarity Clear UA Spec Grav 1.010 UA pH 7.0 UA Protein >=300 mg/dL UA Glucose Negative mg/dL UA Ketones Negative mg/dL UA Bili Negative UA Urobilinogen 0.2 mg/dL UA Blood Small UA Nitrite Negative UA Leuk Est Moderate UR WBC 51-100 /HPF UR RBC 11-20 /HPF UR % Dysmorphic RBC <=25 % UR Squamous Epi Cells Occ-3 /HPF UR Bacteria Present 10/19/2014 18:34 CDT Hgb 11.9 g/dL LOW Hct 35.6 % WBC 13.9 x10(9)/L HI RBC 3.97 x10(12)/L MCV 89.7 fL RDW 13.3 % Platelet 241 x10(9)/L Platelet Estimate Adequate Neutro Manual 90.0 % HI Lymph Manual 3.0 % LOW Warrick Manual 4.0 % Eos Manual 2.0 % Baso Manual 1.0 % Manual Diff ANC 12.51 x10(9)/L HI PT 9.8 second(s) INR 1.0 INR Sodium Lvl 135 mmol/L Potassium Lvl 3.7 mmol/L Chloride 98 mmol/L CO2 21 mmol/L LOW AGAP 16 mmol/L HI Alkaline Phosphatase 52 U/L Pro B Lenora Pep 431 pg/mL Glucose Lvl 129 mg/dL Creatinine 2.6 mg/dL HI EGFR (MDRD) 17.8 mL/min/SA LOW EGFR (MDRD) 21.6 mL/min/SA LOW BUN 45 mg/dL HI Calcium Lvl 8.9 mg/dL Magnesium 2.1 mg/dL Protein Total 6.3 g/dL Albumin Lvl 3.4 g/dL LOW AST 17 U/L ALT 10 U/L Bili Total 0.4 mg/dL Troponin-T <0.010 ng/mL . Radiology results:Interpretation: Reason For Exam dyspnea and Atrial fibrillation Report EXAM: XR Chest 1 view portable INDICATION: dyspnea and Atrial fibrillation A single portable view of the chest was obtained on 10/19/2014 at 1851 hours, and compared with a prior study of 05/22/2013. The heart and pulmonary vasculature are within normal limits. The visualized lungs are clear. IMPRESSION: No active intrathoracic disease demonstrated on this portable view. Signature Line Final Dictated: 10/19/2014 6:46 pm JOHNNY OZUNA MD Signed (Electronic Signature): 10/19/2014 6:48 pm. Procedure Critical care note Total time: 60 minutes spent engaged in work directly related to patient care and/ or available for direct patient care. Critical condition(s) addressed for impending deterioration include: cardiovascular, metabolic, renal. Associated risk factors: hypotension, dysrhythmia, metabolic changes, dehydration. Management: bedside assessment, supervision of care, Interpretation (chest x- ray, electrocardiogram,blood pressure), Interventions hemodynamic management, Case review (primary care physician, medical doctor, family), Alternate history family. Treatment response: Spontaneous conversion but remains hypotensive because of Urosepsis.. Performed by: self. Impression and Plan Diagnosis Chronic Renal Failure Stage IV GFR 15-29 (Discharge, Emergency medicine, Medical) Fibrillation Atrial Paroxysmal (PAF) (Discharge, Emergency medicine, Medical) Hypotension NOS (Discharge, Emergency medicine, Medical) Urosepsis (Discharge, Emergency medicine, Medical) Calls-Consults -Phone call (Ed Baldwin who accepts admission.). Plan Condition: Guarded. Disposition: Admit time 10/19/2014 21:45:00, Admit to Intensive Care Unit, Patient care transitionedto: Time: 10/19/2014 21:45:00, STEFANIE BALDWIN MD. Counseled: Patient, Family (daughters and son), Regarding diagnosis, Regarding diagnostic results, Regarding treatment plan, Regarding prescription, Patient indicated understanding of instructions. Orders: Launch Orders Patient Care: Decision to Admit-ED (Order Processing): 10/19/2014 21:45 CDT, PCU, Urosepsis and Atrial fibrillation (sponateous conversion), Ed Baldwin MD. Electronically Signed By: JORDAN HOLBROOK MD On: 10/19/2014 09:47 PM Modified by and Electronically Signed by: JORDAN HOLBROOK MD On: 10/19/2014 09:47 PM Source: [facility] [employer] Document Id: [id number]} Jose Reyes R.N. - 10/19/2014 5:32 PM CDT ED Primary Assessment Document Has Been Updated ED Primary Assessment Entered On: 10/19/2014 17:40 CDT Performed On: 10/19/2014 17:32 CDT by JOSE REYES RN Reason For Visit (As Of: 10/19/2014 17:40:50 CDT) Diagnoses(Active) Syncope/Near syncope Date: 10/19/2014 ; Diagnosis Type: Reason For Visit ; Confirmation: Complaint of ; Clinical Dx: Syncope/Near syncope ; Classification: Medical ; Clinical Service: Emergency medicine ; Code: PNED ; Probability: 0 ; Diagnosis Code: [id number] Triage Chief Complaint Description : Doctor today because she was feeling dizzy and found out that she was in AF and a UTI. Dr. Gaffney gave pt.metoprolol 25 daily, Coumadin 5mg daily and ciprofloxacin 250mg. Took Cipro and vomited immediately. Was told to come here. Denies nausea now. Information Given By : Patient Accompanied By : Daughter Mode of Arrival ED : Private vehicle Track : Medical Languages : Wolof Vital Signs Assessed : Yes Treatments Prior to Arrival : None Is Patient Female and 13-50 no hysterectomy : No JOSE REYES RN - 10/19/2014 17:32 CDT Vital Signs Temperature Core : 37.6 DegC(Converted to: 99.7 DegF) Peripheral Pulse Rate : 156 /min (>HHI) Respiratory Rate : 16 /min Systolic Blood Pressure : 89 mmHg (<LLOW) Diastolic Blood Pressure : 56 mmHg NIBP Mean : 67 mmHg BP Location : Right upper extremity SpO2 : 96 % Oxygen Therapy : Room air Height : 170.18 cm(Converted to: 5 ft 7 inch(es)) Weight Source : Other: clinic wt today Height Source : Stated Estimated Weight : 61.81 kg Estimated Weight Conversion to Pounds : 135.98 lb JOSE REYES 10/19/2014 17:32 CDT Pain Assessment Pain Symptoms : No JOSE REYES 10/19/2014 17:32 CDT JOANA JOANA Level 1 : No JOANA Level 2 : Yes JOSE REYES 10/19/2014 17:32 CDT DCP GENERIC CODE Tracking Acuity : 2 -Emergent Tracking Group : [facility] YARIEL REYESIE 10/19/2014 17:32 CDT Allergy (As Of: 10/19/2014 17:40:50 CDT) Allergies (Active) zinc acetate containing compounds Estimated Onset Date: Unspecified ; Reactions: rash ; Created By: GAGAN TRAN; Reaction Status: Active ; Category: Drug ; Substance: zinc acetate containing compounds ; Type: Allergy ; Updated By: GAGAN TRAN; Reviewed Date: 05/22/2013 20:33 ACCOUNT CONTACT ASSOCIATE ID Screen Drug Resistant Organism : No Travel Within Last 21 Days : No Contact with someone with Ebola : No JOSE REYES 10/19/2014 17:32 CDT TB Symptoms Grid Bloody Sputum : No Fatigue : No Fever : No Loss of Appetite : No Night Sweats : No Persistent Cough Greater Than 3 Weeks : No Weight Loss : No YARIEL REYESIE 10/19/2014 17:32 CDT Immunizations Immunizations Current : Yes Last Tetanus : < 5 years Pneumovac : Last 5 years Influenza : Last year YARIEL REYESIE 10/19/2014 17:32 CDT Respiratory Airway : Patent Respirations : Unlabored Respiratory Pattern : Regular MALCOM JOSE 10/19/2014 17:32 CDT Cardiovascular Heart Rhythm : Irregular Skin Color : Pale Skin Description : Normal Skin Temperature : Warm Monitoring Lead : II JOSE REYES RN - 10/19/2014 17:32 CDT Neurological Last Well Time Known : Not applicable Level of Consciousness : Drowsy Orientation : Oriented x 3 Characteristics of Speech : Appropriate for age Neuro Patient Stated Symptoms : Dizziness, Faintness JOSE REYES RN - 10/19/2014 17:32 CDT ED Psychosocial Affect/Behavior : Calm, Cooperative, Appropriate Domestic Abuse Concerns : None Behavioral Health Screen/Safety Assmt : No JOSE REYES RN - 10/19/2014 17:32 CDT Gastrointestinal Nutrition ED : Adequate JOSE REYES RN - 10/19/2014 17:32 CDT Musculoskeletal Fall Prevention Education Provided : Yes JOSE REYES RN - 10/19/2014 17:32 CDT Social Habits Tobacco Use/Currently Using : No Exposure to Tobacco Smoke : Care provider denies smoking in home Smoking Status : Never smoker JOSE REYES RN - 10/19/2014 17:32 CDT Source: [facility] Document Id: [id number] CDT!79 Jose Reyes R.N. - 10/19/2014 5:30 PM CDT ED Treatments and Procedures ED Treatments and Procedures Entered On: 10/19/2014 17:46 CDT Performed On: 10/19/2014 17:30 CDT by JOSE REYES RN Peripheral IV Peripheral IV Assess/Intervention Grid Peripheral IV #1 IV Activity : Start Number of Attempts : 1 Date of Insertion : 10/19/2014 CDT IV Site : Forearm Laterality : Left JOSE REYES RN - 10/19/2014 17:47 CDT Catheter Size : 18 JOSE REYES RN - 10/19/2014 17:47 CDT JOSE REYES RN - 10/19/2014 17:46 CDT Source: [facility] Document Id: [id number] CDT!6 documented in this encounter Miscellaneous Notes Miscellaneous - Pema Cox R.N. - 10/19/2014 11:06 PM CDT Valuables/Belongings Valuables/Belongings Entered On: 10/19/2014 23:07 CDT Performed On: 10/19/2014 23:06 CDT by PEMA COX RN Valuables/Belongings Valuables/Belongings Grid Valuables with Family Clothes, Patient Valuables : Pants, Shirt, Undergarments Monetary Items : Odell PEMA COX RN - 10/19/2014 23:06 CDT Source: [facility] [employer] Document Id: [id number] CDT!6 Miscellaneous - Conversion, Historical Provider Ser - 10/19/2014 10:20 PM CDT Coding Summary-Paper Based CODING DATE: 10/22/2014 FINAL [facility] STATUS: Admitted as Inpatient to this Hospital PAYOR: Medicare ADMIT DX: 780.4 Dizziness and Giddiness REASON FOR VISIT DX: 780.4 Dizziness and Giddiness FINAL DX: PRINCIPAL: 585.4 Chronic Kidney Disease, Stage IV (Severe) SECONDARY: 427.31 Atrial Fibrillation 458.9 Hypotension, Unspecified 599.0 Urinary Tract Infection, Site Not Specified 401.9 Unspecified Essential Hypertension PROCEDURES DOCTOR NAME DATE NOTE: The code number assigned matches the documented diagnosis and / or procedure in the patient's chart. However, the narrative phrase printed from the coding software may appear abbreviated, or result in slightly different terminology. Coded By: KARLO MCCLAIN Date Saved: 10/22/2014 05:02 pm Source: [facility] Document Id: [id number] Miscellaneous - Pema Cox R.N. - 10/19/2014 5:11 PM CDT Facility Charge Ticket 2.0 11.0 DX Facility Charge Ticket 2.0 11.0 DX Entered On: 10/19/2014 23:07 CDT Performed On: 10/19/2014 17:11 CDT by PEMA COX RN Facility Charge Ticket 2.0 11.0 DX ED Other Charges : Standard ED Encounter TVL Level Translated RTF : Syncope/Near syncope TVL:4 TVL Level for Facility Charge Ticket : Level 4 Arrival Mode Calc : 1 Mode of Arrival ED : Private vehicle [facility] Mode of Arrival Interpreted : Standard [facility] Process Management : None Order Management RTF : Laboratory CBC (includes Auto Differential),10/19/14 18:17,JORDAN HOLBROOK MD Completed Comprehensive Metabolic Panel,10/19/14 18:17,JORDAN HOLBROOK MD Completed Magnesium Level,10/19/14 18:17,JORDAN HOLBROOK MD Completed Pro B Natriuretic Peptide,10/19/14 18:17,JORDAN HOLBROOK MD Completed PT/INR,10/19/14 18:17,JORDAN HOLBROOK MD Completed Troponin T,10/19/14 18:17,JORDAN HOLBROOK MD Completed Urinalysis with Culture if Indicated,10/19/14 18:17,JORDAN HOLBROOK MD Completed Notification Only,10/19/14 18:19,JORDAN HOLBROOK MD Completed Manual Differential,10/19/14 18:53,JORDAN HOLBROOK MD Completed UR % Dysmorphic RBC,10/19/14 19:11,JORDAN HOLBROOK MD Completed Notification Only,10/19/14 19:48,JORDAN HOLBROOK MD Completed Communication to Lab,10/19/14 21:16,JORDAN HOLBROOK MD Completed Lactic Acid,10/19/14 21:17,JORDAN HOLBROOK MD Completed Culture Urine,10/19/14 18:59,JORDAN HOLBROOK MD Ordered Blood Culture,10/19/14 21:16,JORDAN HOLBROOK MD Ordered Xray XR Chest 1 view portable,10/19/14 18:18,JORDAN HOLBROOK MD Completed [facility] Order Management : Lab tests, Xray - plain films 30 Minutes Critical Care : No Nursing Notes RTF : Nursing Notes ED Primary Assessment,10/19/14 17:32,JOSE REYES KETTLE SKIMMER Nurse Reassess,10/19/14 22:07,PEMA COX KETTLE SKIMMER Nurse Reassess,10/19/14 21:22,PEMA COX KETTLE SKIMMER Nurse Reassess,10/19/14 20:05,PEMA COX KETTLE SKIMMER Nurse Reassess,10/19/14 19:10,PEMA COX KETTLE SKIMMER Nurse Reassess,10/19/14 18:11,JOSE REYES RN [facility] Nursing Assessment : Triage and 6+ nursing assessments [facility] Disposition : Admit - ICU or transport via ALS/Air transport Disposition RTF : ICU [facility] Total Points with Diagnosis Control : 17 [facility] Visit Level : 77360 Level 5 Treatments Prior to Arrival : None PEMA COX RN - 10/19/2014 23:07 CDT [facility] Document Id: [id number] CDT!19 documented in this encounter Plan of Treatment Not on filedocumented as of this encounter Procedures Procedure Name Priority Date/Time Associated Comments Diagnosis BACTERIAL CULTURE, Routine 10/19/2014 9:27 PM Res ults for this BLOOD CDT procedure are i n the results section. LACTATE, B/P Routine 10/19/2014 9:27 PM Results f or this CDT procedure are i n the results section. BACTERIAL CULTURE, Routine 10/19/2014 6:59 PM Res ults for this AEROBIC, URINE CDT procedure are in the results section. HXUR % DYSMORPHIC RBC Routine 10/19/2014 6:50 PM Results for this CDT procedure are i n the results section. URINALYSIS, MIDSTREAM, Routine 10/19/2014 6:50 PM Results for this WITH CULTURE IF CDT procedure ar e in INDICATED the results section. DX CHEST 1 VIEW Routine 10/19/2014 6:49 PM Result s for this CDT procedure are i n the results section. HXMANUAL DIFFERENTIAL Routine 10/19/2014 6:34 PM Results for this CDT procedure are i n the results section. NT-PRO B-TYPE Routine 10/19/2014 6:34 PM Results for this NATRIURETIC PEPTIDE CDT procedur e are in (BNP), S the results section. PROTHROMBIN TIME (PT), Routine 10/19/2014 6:34 PM Results for this P CDT procedure are i n the results section. CBC WITH DIFFERENTIAL, Routine 10/19/2014 6:34 PM Results for this B CDT procedure are i n the results section. TROPONIN T, 5TH GEN, P Routine 10/19/2014 6:34 PM Results for this CDT procedure are i n the results section. MAGNESIUM, S Routine 10/19/2014 6:34 PM Results f or this CDT procedure are i n the results section. COMPREHENSIVE Routine 10/19/2014 6:34 PM Results for this METABOLIC PANEL, S/P CDT procedu re are in the results section. documented in this encounter Results Lactate (10/19/2014 9:27 PM CDT) athologist Signature Lactate, P 0.6 0.5 - 2.2 POWERCHART MMOLL Specimen (Source) Anatomical Collection Method Collection Time Re ceived Time Location / / Volume Laterality Blood 10/19/2014 9:27 PM CDT Jordan Holbrook M.D. LAB BLOOD NON ADD-ON Performing Organization Address City/[facility] Code Phon e Number POWERCHART Bacterial Culture, Blood (10/19/2014 9:27 PM CDT) Patholo gist Method Time Signature Bacteria/Ronda POWERCHART da Culture, Blood HXPre No growth POWERCHART at 17 Hours HXPre No growth POWERCHART at 32 Hours HXFinal No growth POWERCHART at 5 days. Specimen (Source) Anatomical Collection Method Collection Time Re ceived Time Location / / Volume Laterality Blood 10/19/2014 9:27 PM CDT Jordan Holbrook M.D. LAB MICROBIOLOGY - GENERAL O RDERABLES Performing Organization Address City/[facility] Code Phon e Number POWERCHART Bacterial Culture, Aerobic, Urine (10/19/2014 6:59 PM CDT) Analysis Performed At Patho logist Time Signature Bacterial POWERCHART Culture, Aerobic, Urine HXFinal No growth POWERCHART Specimen Anatomical Collection Method Collection Time Receive d Time (Source) Location / / Volume Laterality Urine, First 10/19/2014 6:59 PM 5 6:59 Voided CDT PM CDT Jordan Holbrook M.D. LAB MICROBIOLOGY - GENERAL O RDERABLES Performing Organization Address [facility] Phon e Number POWERCHART HXUR % DYSMORPHIC RBC (10/19/2014 6:50 PM CDT) athologist Signature Dysmorphic RBC <=25 <=25 POWERCHART Specimen Anatomical Collection Method Collection Time Receive d Time (Source) Location / / Volume Laterality Urine, First 10/19/2014 6:50 PM 5 6:50 Voided CDT PM CDT Jordan Hlobrook M.D. LAB HISTORICAL ORDERS Performing Organization Address City/[facility]/ZIP Code Phon e Number POWERCHART (ABNORMAL) Urinalysis, Midstream, with culture if indicated (10/19/2014 6:50 PM CDT) [facility] gist Method Time Signature HXUr Color Yellow Colorless POWERCHART Clarity Clear Clear POWERCHART Glucose Negative Negative POWERCHART MGDL HXBILIRUBIN Negative Negative POWERCHART Ketones, QL(U) Negative Negative POWERCHART MGDL Specific 1.010 POWERCHART [place], POCT, U HXBLOOD Small (A) Negative POWERCHART pH, POCT, Urine 7.0 <5.0 POWERCHART Protein, Ur, >=300 (A) Negative POWERCHART Dip MGDL Urobilinogen 0.2 0.2 MGDL POWERCHART HXNITRITE Negative Negative POWERCHART Leukocyte Moderate Negative POWERCHART Esterase (A) HXUR WBC. 51-100 (A) None Seen POWERCHART HPF HXUR RBC. 11-20 (A) None Seen POWERCHART HPF HXUR Bacteria, Present (A) None Seen POWERCHART Squamous Occ-3 (A) None Seen POWERCHART Epithelial HPF Specimen (Source) Anatomical Collection Method Collection Time Re ceived Time Location / / Volume Laterality Urine, First 10/19/2014 6:50 PM Voided CDT Jordan Holbrook M.D. LAB URINE ORDERABLES Performing Organization Address City/[facility]/[place] [facility] [place] POWERCHART DX Chest 1 View (10/19/2014 6:49 PM CDT) Anatomical Region Laterality Modality Chest N/A Radiographic Imaging Specimen (Source) Anatomical Collection Method Collection Time Re ceived Time Location / / Volume Laterality 10/19/2014 6:49 PM CDT Addenda Addendum by Provider, Kelechi Rosario 10/19/2014 6:49 PM CDT RAD^^^MA XR Chest 1 view portable 10/19/2014 18:49:16 Impressions 10/19/2014 6:48 PM CDT No active intrathoracic disease demonstrated on this portable view. Narrative 10/19/2014 6:48 PM CDT EXAM: XR Chest 1 view portable INDICATION: dyspnea and Atrial fibrillat ion A single portable view of the chest was obtained on 10/19/2014 at 1851 hours, and compared with a prior st udy of 05/22/2013. The heart and pulmonary vasculature are within ??normal limits. The visualized lungs are clear. Procedure Note Johnny Ozuna M.D. / Provider, Deshaun gavin M.D. - 08/20/2016 EXAM: XR Chest 1 view portable INDICATION: dyspnea and Atrial fibrillat ion A single portable view of the chest was obtained on 10/19/2014 at 1851 hours, and compared with a prior st udy of 05/22/2013. The heart and pulmonary vasculature are within normal limits. The visualized lungs are clear. IMPRESSION: No active intrathoracic dise ase demonstrated on this portable view. Merna WilsonTXenia(R)(CT), R.TXenia(R)(M) IMG DIAGNOSTIC I MAGING PROCEDURES (ABNORMAL) HXMANUAL DIFFERENTIAL (10/19/2014 6:34 PM CDT) Patholo gist Method Time Signature Absolute 12.51 (H) 1.70 - POWERCHART Neutrophil 7.00 X109L Count Absolute 90.0 (H) 50.0 - POWERCHART Neutrophil 70.0 Count HX Lymph Manual 3.0 (L) 25.0 - POWERCHART 45.0 Monocytes 4.0 0.0 - 8.0 POWERCHART HX Eos Manual 2.0 0.0 - 4.0 POWERCHART HXBaso Manual. 1.0 0.0 - 2.0 POWERCHART PLT Estimate Adequate POWERCHART Specimen Anatomical Collection Method Collection Time Receive d Time (Source) Location / / Volume Laterality Blood 10/19/2014 6:34 PM 5 6:34 CDT PM CDT Jordan Holbrook M.D. LAB HISTORICAL ORDERS Performing Organization Address City/State/ZIP Code Phon e Number POWERCHART PT (Prothrombin Time) with INR (10/19/2014 6:34 PM CDT) Analysis Performed At Patho logist Time Signature INR 1.0 0.8 - 1.2 POWERCHART INR Prothrombin 9.8 8.5 - 11.5 POWERCHART Time, P SECONDS Specimen (Source) Anatomical Collection Method Collection Time Re ceived Time Location / / Volume Laterality Blood 10/19/2014 6:34 PM CDT Jordan Holbrook M.D. LAB BLOOD ADD-ON Performing Organization Address City/State/ZIP Code Phon e Number POWERCHART (ABNORMAL) CBC with Differential (10/19/2014 6:34 PM CDT) Analysis Performed At Patho logist Time Signature Leukocytes 13.9 (H) 3.5 - 10.5 POWERCHART X109L Erythrocytes 3.97 3.90 - POWERCHART 5.03 [id number] Hemoglobin 11.9 (L) 12.0 - POWERCHART 15.5 GDL Hematocrit 35.6 34.9 - POWERCHART 44.5 MCV 89.7 81.6 - POWERCHART 98.3 FL HX RDW 13.3 11.9 - POWERCHART 15.5 Platelet Count 241 150 - 450 POWERCHART X109L Specimen (Source) Anatomical Collection Method Collection Time Re ceived Time Location / / Volume Laterality Blood 10/19/2014 6:34 PM CDT Jordan Holbrook M.D. LAB BLOOD ADD-ON Performing Organization Address City/State/ZIP Code Phon e Number POWERCHART Troponin T (10/19/2014 6:34 PM CDT) P athologist Signature Troponin T, S <0.010 <=0.010 POWERCHART NGML Comment: Values > or = 0.01 ng/mL have b een shown to have prognostic value. Specimen (Source) Anatomical Collection Method Collection Time Re ceived Time Location / / Volume Laterality Blood 10/19/2014 6:34 PM CDT Jordan Holbrook M.D. LAB BLOOD ADD-ON Performing Organization Address City/State/ZIP Code Phon e Number POWERCHART NT-Pro B-Type Natriuretic Peptide (BNP) (10/19/2014 6:34 PM CDT) P athologist Signature B-Type 431 <=449 PGML POWERCHART Natriuretic Peptide (BNP) Comment: NT-proBNP values less than 300 pg/mL hav e a 99% negative predictive value for excluding acute congestive heart failure. A cutoff of 1200 pg/mL for patients with an eGFR<60 yields a diagnostic sensitivity and specificity of 89% and 72% for acute congestive heart failure. ? Adults <50 years: ??NT-proBNP values greater than 450 pg/mL are consistent with CHF. ? Adults 50-75 years: ??A diagnostic NT-proBNP cutoff of 900 pg/mL has been suggested in the absence of renal failure. ? Adults >75 years: ??A diagnostic NT-proBNP cutoff of 1800 pg/mL has been suggested in the absence of renal failure. Specimen (Source) Anatomical Collection Method Collection Time Re ceived Time Location / / Volume Laterality Blood 10/19/2014 6:34 PM CDT Jordan Holbrook M.D. LAB BLOOD ADD-ON Performing Organization Address City/[facility]/ZIP Code Phon e Number POWERCHART Magnesium (10/19/2014 6:34 PM CDT) P athologist Signature Magnesium, S 2.1 1.7 - 2.3 POWERCHART MGDL Specimen (Source) Anatomical Collection Method Collection Time Re ceived Time Location / / Volume Laterality Blood 10/19/2014 6:34 PM CDT Jordan Holbrook M.D. LAB BLOOD ADD-ON Performing Organization Address City/State/ZIP Code Phon e Number POWERCHART (ABNORMAL) CMP (Comprehensive Metabolic Panel) (10/19/2014 6:34 PM CDT) Patholo gist Method Time Signature Alanine 10 7 - 45 UL POWERCHART Amniotransferase, LD Albumin, S 3.4 (L) 3.5 - 5.2 POWERCHART GDL Alkaline 52 35 - 105 POWERCHART Phosphatase, S UL Aspartate 17 8 - 43 UL POWERCHART Aminotransferase (AST), S Sodium, S 135 135 - 145 POWERCHART MMOLL Potassium, S 3.7 3.5 - 5.1 POWERCHART MMOLL Chloride, S 98 98 - 107 POWERCHART MMOLL CO2 Total 21 (L) 22 - 29 POWERCHART MMOLL BUN (Blood Urea 45 (H) 6 - 24 POWERCHART Nitrogen), S MGDL Creatinine 2.6 (H) 0.6 - 1.1 POWERCHART MGDL Calcium, Total, S 8.9 8.8 - 10.3 POWERCHART MGDL Anion Gap 16 (H) 7 - 15 POWERCHART MMOLL HXeGFR (MDRD) 17.8 (L) >=60.0 POWERCHART MLMINSA eGFR Black/ 21.6 (L) >=60.0 POWERCHART [place] MLMINSA Bilirubin, Total, S 0.4 <=1.2 MGDL POWERCHAR T Total Protein, S 6.3 6.3 - 7.9 POWERCHART GDL Glucose 129 70 - 140 POWERCHART MGDL Specimen (Source) Anatomical Collection Method Collection Time Re ceived Time Location / / Volume Laterality Blood 10/19/2014 6:34 PM CDT Jordan Holbrook M.D. LAB BLOOD ADD-ON Performing Organization Address City/State/ZIP Code Phon e Number POWERCHART documented in this encounter Visit Diagnoses Not on filedocumented in this encounter
--- OUTSIDE RECORDS SUMMARY | 2022-01-19 14:58 | XMS_ITS | Encounter Summary ---
:1935 Author Organization [facility] Address [address] [place] [address] Care Team Providers Name Role Phone Unavailable Primary Care Provider Unavailable Encounter Details Date Type Department Care Team Description 05/22/2016 Hospital Encounter HX NO MAPPING Henna Parra P .A.-C., VANDANA Social History Tobacco Use Types Packs/Day Years Used Date Smoking Tobacco: Former Sex Assigned at Date Recorded Not on file documented as of this encounter Medications at Time of Discharge Medication Sig Dispensed Refills Start Date End Date cholecalciferol (VITAMIN Take 1,000 Units 0 11/14 D3) 1,000 Unit capsule by mouth daily. geriatric Take 1 tablet by 0 01/30/2015 rpbbczel-kgyx-ffko tablet mouth daily. simvastatin (ZOCOR) 10 mg Take 10 mg by 0 015 tablet mouth at bedtime. raNITIdine (ZANTAC) 150 mg 150 mg. 0 5 07/23/2020 tablet documented as of this encounter Miscellaneous Notes Miscellaneous - Conversion, Historical Provider Ser - 05/22/2016 11:59 PM WEB DATABASE DEVELOPER Coding Summary-Paper Based CODING DATE: 06/03/2016 FINAL [facility] STATUS: * Discharged to Home or Self Care PAYOR: Medicare ADMIT DX: REASON FOR VISIT DX: FINAL DX: PRINCIPAL: R07.0 Pain in throat SECONDARY: PROCEDURES DOCTOR NAME DATE NOTE: The code number assigned matches the documented diagnosis and / or procedure in the patient's chart. However, the narrative phrase printed from the coding software may appear abbreviated, or result in slightly different terminology. Coded By: RAINA MORAN Date Saved: 06/03/2016 12:11 pm Source: [employer] Document Id: [id number] documented in this encounter Plan of Treatment Not on filedocumented as of this encounter Visit Diagnoses Not on filedocumented in this encounter
--- OUTSIDE RECORDS SUMMARY | 2022-01-19 14:58 | XMS_ITS | Encounter Summary ---
:[address] [facility] Address [address] [place] [address] Care Team Providers Name Role Phone Unavailable Primary Care Provider Unavailable Encounter Details Date Type Department Care Team Description 03/03/2016 Hospital Encounter HX [facility] Vinnie Aguilar Jr., M.D. [address] [place], [place] [phone] (Wo rk) Social History Tobacco Use Types Packs/Day Years Used Date Smoking Tobacco: Never Assessed Sex Assigned at Date Recorded Not on file documented as of this encounter Medications at Time of Discharge Medication Sig Dispensed Refills Start Date End Date cholecalciferol (VITAMIN Take 1,000 Units 0 11/14 D3) 1,000 Unit capsule by mouth daily. geriatric Take 1 tablet by 0 01/30/2015 vecovznx-trwx-xokx tablet mouth daily. simvastatin (ZOCOR) 10 mg Take 10 mg by 0 015 tablet mouth at bedtime. raNITIdine (ZANTAC) 150 mg 150 mg. 0 5 07/23/2020 tablet documented as of this encounter Miscellaneous Notes Miscellaneous - Conversion, Historical Provider Ser - 03/04/2016 8:03 AM DEGREASING SOLUTION MIXER Coding Summary-Paper Based CODING DATE: 03/04/2016 FINAL [facility] STATUS: * Discharged to Home or Self Care PAYOR: Medicare ADMIT DX: REASON FOR VISIT DX: FINAL DX: PRINCIPAL: Z12.31 Encounter for screening mammogram for malignant neoplasm of breast SECONDARY: PROCEDURES DOCTOR NAME DATE NOTE: The code number assigned matches the documented diagnosis and / or procedure in the patient's chart. However, the narrative phrase printed from the coding software may appear abbreviated, or result in slightly different terminology. Coded By: DARRICK FAGAN Date Saved: 03/04/2016 08:03 am Source: [facility] POWERCHART Document Id: [id number] documented in this encounter Plan of Treatment Not on filedocumented as of this encounter Procedures Procedure Name Priority Date/Time Associated Diagnosis Comme nts BI BREAST SCREENING Routine 03/03/2016 10:30 AM R esults for this BILATERAL DEGREASING SOLUTION MIXER procedure are i n the results section. documented in this encounter Results BI Breast Screening Bilateral (03/03/2016 10:30 AM DEGREASING SOLUTION MIXER) Anatomical Region Laterality Modality Breast Bilateral Mammography Specimen (Source) Anatomical Collection Method Collection Time Re ceived Time Location / / Volume Laterality 03/03/2016 10:30 AM DEGREASING SOLUTION MIXER Addenda Addendum by ProviderAbraham M.D. o n 03/03/2016 10:30 AM DEGREASING SOLUTION MIXER RAD^^^MA MA Mammo Screening w/ CADD 03/03/2016 10:30:00 Impressions 03/03/2016 11:41 AM DEGREASING SOLUTION MIXER BI-RADS 2. ??BENIGN FINDING (S) RECOMMENDATION: Routine screening mammog hugh. BREAST MAMMOGRAPHY - GENERAL OBSERVATION S: ??The false negative rate for mammography is 15-20%. ??It cannot b e used, therefore, to replace the regular physical examination. ??A no rmal or noncontributory mammogram report also should not deter t he aggressive further workup of any suspected palpable masses. Narrative 03/03/2016 11:41 AM DEGREASING SOLUTION MIXER EXAM: Bilateral digital screening mammog junior COMPARISON: Mammograms from 03/02/2015, 03/01/2014, 02/28/2013 INDICATION: 80 -year-old female with no breast complaints or breast problems on today's screening mammogram. FINDINGS: Breast tissue show scattered fibroglandu lar densities. There is a stable small metallic marker clip in the lateral left breast posterior depth. No suspicious mi crocalcifications, mass or architectural distortion. No significant interval change. Computer aided detection utilized during interpretation of this exam. Procedure Note Gavin Rodriguez M.D. / Provider, Suad garcia M.D. - 08/16/2016 EXAM: Bilateral digital screening mammog junior COMPARISON: Mammograms from 03/02/2015, 03/01/2014, 02/28/2013 INDICATION: 80 -year-old female with no breast complaints or breast problems on today's screening mammogram. FINDINGS: Breast tissue show scattered fibroglandu lar densities. There is a stable small metallic marker clip in the lateral left breast posterior depth. No suspicious mi crocalcifications, mass or architectural distortion. No significant interval change. Computer aided detection utilized during interpretation of this exam. IMPRESSION: BI-RADS 2. BENIGN FINDING (S ) RECOMMENDATION: Routine screening mammog hugh. BREAST MAMMOGRAPHY - GENERAL OBSERVATION S: The false negative rate for mammography is 15-20%. It cannot be used, therefore, to replace the regular physical examination. A norm al or noncontributory mammogram report also should not deter t he aggressive further workup of any suspected palpable masses. Diane Wills R.T.(R)(CT), R.T.(R) IMG BI PROCEDURES documented in this encounter Visit Diagnoses Not on filedocumented in this encounter
--- OUTSIDE RECORDS SUMMARY | 2022-01-19 14:58 | XMS_ITS | Encounter Summary ---
:1935 Author Organization [facility] Address [address] [place] [address] Care Team Providers Name Role Phone Unavailable Primary Care Provider Unavailable Encounter Details Date Type Department Care Team Description 10/19/2014 - Hospital En[facility] Jose Daniel Solo, 10/24/2014 [place] [phone] (Wo rk) Social History Tobacco Use Types Packs/Day Years Used Date Smoking Tobacco: Never Assessed Sex Assigned at Date Recorded Not on file documented as of this encounter Last Filed Vital Signs Vital Sign Reading Time Taken Comments Blood Pressure 122/67 10/24/2014 5:46 AM CDT Pulse 83 10/24/2014 5:46 AM CDT Temperature - - Respiratory Rate 16 10/24/2014 5:46 AM CDT Oxygen Saturation - - Inhaled Oxygen Concentration - - Weight 64.2 kg (141 lb 8.6 oz) 10/24/2014 2:47 AM CDT Height 168 cm (5' 6.14) 10/24/2014 5:46 AM CDT Body Mass Index 22.75 10/24/2014 2:47 AM CDT documented in this encounter Discharge Summaries Jose Daniel Baldwin M.D. - 10/24/2014 12:00 AM CDT [id number] REVISION HISTORY 10/26/2014 at 3:14 pm - -- Modification: Incomplete shin filled in x6 per Dr. Jose Daniel Baldwin (nola) ADMIT DATE: 10/19/2014 DISCHARGE DATE: 10/24/2014 INTERVAL EVENTS: Patient is seen today and has complaints of taking too much Evista at 60 mg, reports taking only 30 mg daily and without side effects. Unable to do this in the hospital due to policy. Also, patient's kidney function improving. Hemoglobin stable. Patient will be able to be discharged to swing bed with vital signs of a temperature of 36.6 degrees Celsius, pulse is 73, respiratory rate 18, blood pressure improved at 122/59, O2 sat 98%. Height of 168 cm. The patient is not on blood pressure medications. Doing well with no muscle spasm with a decrease in simvastatin at 10 mg daily. Anticoagulated on heparin. Started on iron therapy with no further diarrhea. Seems to be constipating patient. LABORATORY RESULTS: Hemoglobin 10.1, white blood cell count 4.4, platelets 195. Sodium 144, potassium 4.8, chloride 113, bicarb 22, anion gap 9, alkaline phosphatase 39, glucose 91, creatinine 2.1, creatinine maximum 2.7. GFR 22.8 for non . BUN 18, calcium 9.1, protein and albumin low.Albumin 3.1. A liver function test normal. Total bilirubin 0.2, iron total low at 30 and total iron binding capacity low at 203. Of note, folate and B12 were normal. Urinalysis at discharge showed 11 to 20 white blood cells. Patient on Zosyn. PHYSICAL EXAMINATION GENERAL: On exam, the patient appears joyful. Skin tone much improved. Not in respiratory distress. Breathing normally. Appears comfortable. Eyes anicteric. CHEST: Clear to auscultation bilaterally. SPINE: Nontender to palpation. HEART: Regular rate and rhythm, S1, S2. No clicks, murmurs or rubs. ABDOMEN: Soft. Nontender. EXTREMITIES: No edema. NEUROLOGICAL EXAM: Cranial nerves 2-12 intact. Deep tendon reflexes were symmetric today. Unchanged. IMPRESSION/REPORT/PLAN 1. Urosepsis, responding to Zosyn. Unknown bug. Urine cultures x2 negative. 2. Hypertension, now off blood pressure medication. Responding to decreased dose of simvastatin 10 mg at bedtime. 3. Left renal atrophy. Will refer to Nephrology at discharge from swing bed. Will keep an eye on blood pressure. Watch for fluctuating blood pressures. Given no blood pressure pills as patient's creatinine improves with therapy. Recheck urinalysis on Thursday. Recheck a CBC and basic metabolic panel today. Continue to monitor vital signs. Continues on IV antibiotics every 8 hours in the hospital until Thursday given that the labs will be normal on both Thursday and Thursday. The patient's family involved with patient care plan and informed at this visit about the patient's plan and are in agreement with the plan. 4. CODE STATUS, DO NOT RESUSCITATE. Jose Daniel Baldwin M.D./pos Electronically Signed By: JOSE DANIEL BALDWIN MD On: 10/26/2014 12:14 PM Jose Daniel Baldwin M.D./dw Electronically Signed By: JOSE DANIEL BALDWIN MD On: 10/26/2014 12:14 PM Co-Signed By: JOSE DANIEL BALDWIN MD On: 10/27/2014 07:34 AM Source: [facility] MHSDOLBEYNONRADSYS Document Id: [id number] documented in this encounter Progress Notes Jose Daniel Baldwin M.D. - 10/23/2014 12:00 AM CDT [id number] SUBJECTIVE: Patient wishes to shower. Will change telemetry. Diarrhea continues. No cough. No chest pain. Feeling improved. Of note, the white blood cell count is 11 to 20 decreased from 51 to 100. Blood pressure elevated at 123/70 which is improved. Patient off her antihypertensive medications. Will need 1 more day of close monitoring of renal function and recheck urinalysis on Thursday with continuation of IV antibiotics until Thursday. Complications include atrophied kidney if the infection is in this area, will take longer to heal with a noted slow decrease in white blood cell count on labs. We will continue Zosyn pending the diarrhea. Check a urinalysis on Thursday, October 28, in the morning. It will probably be erased and she goes to swing bed tomorrow. Continue iron therapy twice daily with vitamin C. Continue simvastatin at a lower dose to 10 mg due to nauseous. The patient does not complainof pain. Wishes to shower. Continue IV fluids at 75 mL an hour to flush the kidney. PHYSICAL EXAMINATION HEART: Regular rate, grade 1/6 systolic ejection murmur. LUNGS: Clear to auscultation bilaterally. ABDOMEN: Hyperactive bowel sounds continue. EXTREMITIES: Revealed no edema. GENERAL: Patient appears improved. VITAL SIGNS: Temperature 37.1 degrees Celsius, pulse 73, blood pressure 123/70, respiratory 16, O2 sats 97% on room air, height 168 and actual weight of 64.5 kg. LABORATORY RESULTS: Alkaline phosphatase 41, glucose 90, creatinine 2.2, BUN 18, calcium 9.4, protein low at 5.6, albumin low at 3.1, will obtain a dietitian consult. ALT 13, AST 13, iron saturation low. Folate and B12 normal. UA showed 11 to 20 white blood cells, continued infection but improved. ASSESSMENT: 1. Urosepsis. 2. Iron-deficiency anemia. 3. Low protein. 4. Hypernatremia. 5. Stable hemoglobin at 10.3. Patient with a history of hypertension now normotensive. Question needfor antihypertensive medications. PLAN: Zosyn IV. IV fluids. Iron therapy. Monitor stools. Discharge to swing bed tomorrow if clinically stable for continuation of IV antibiotics until Thursday. Jose Daniel Baldwin M.D./pos Electronically Signed By: JOSE DANIEL BALDWIN MD On: 10/24/2014 07:05 AM Source: [facility] Document Id: [id number] Jose Daniel Baldwin M.D. - 10/22/2014 12:00 AM CDT [id number] SUBJECTIVE: Patient complains of no new symptoms. Found to be iron deficient, started on iron therapy. Does complain of diarrhea off and on, request for Imodium. On IV antibiotics, concern for Clostridium difficile. Responding to IV Zosyn, urine cultures from both the clinic and hospital have been negative. Patient diagnosed with urosepsis due to infection being located in the urine on urinalysis. Blood pressure remains low. The current blood pressure is 109/58 with a pulse of 77 and a temperature of 36.8 degrees Celsius, respiratory rate 22, oxygen therapy 98% on room air. Height 168 cm with actual weight of 64.4 kg. PHYSICAL EXAMINATION: GENERAL: Patient appeared in no apparent distress. HEART: Regular rate and rhythm, S1, S2, no clicks, murmurs, or rubs. LUNGS: Clear to auscultation. No crackles. EXTREMITIES: Revealed trace edema. ABDOMEN: Hyperactive bowel sounds present. ASSESSMENT: 1. Diarrhea due to antibiotic use. 2. Urosepsis. 3. History of hypertension, now hypotension. 4. Chronic renal insufficiency, stage III, acute on chronic, due to urosepsis. 5. Iron-deficiency anemia. LABORATORY WORK: Hemoglobin 10.4, white blood cell count 5700, platelet count 203,000. Sodium 145, potassium 4.8, chloride 115, bicarb 22, anion gap 8, alkaline phosphatase 41, proBNP 4031, glucose 102, creatinine 2.4, GFR 19.6, BUN 23, calcium 9.1, AST 13, ALT 12, total bilirubin 0.2, iron low at 30,TIBC low at 203. Iron saturation 15%. PLAN: Continue Zosyn IV antibiotics. Continue IV fluids at 75 mL, decrease due to good oral intake. Ambulate 3 times a day. hospital social worker consult for possible swing bed with the plan on IV antibiotics for 6 more days. Monitor hypotension. Check urinalysis in the morning. Jose Daniel Baldwin M.D./pos Electronically Signed By: JOSE DANIEL BALDWIN MD On: 10/22/2014 11:43 AM Source: [facility] Document Id: [id number] Jose Daniel Baldwin M.D. - 10/21/2014 12:00 AM CDT [id number] SUBJECTIVE: Patient continues to improve with the renal function is not improving and a blood pressure that is low. Noted first-degree heart block on EKG. OBJECTIVE: VITAL SIGNS: Blood pressure low at 96/48, pulse 83, temperature 36.8, respiratory rate 16, O2 sats 97% on room air and weight gain of 65.7 kg, change from 61.5, kg. Urinalysis on admission showed white blood cells. Blood culture preliminary showed no growth. Urine culture results completed no growth. ALLERGIES SEPTRA. ZINC. MEDICATIONS Inpatient medications reviewed and renal dosed. Patient on renal dosing of Zosyn. PHYSICAL EXAMINATION On exam patient appears pleasant, alert and orientated x3. HEENT: Eyes anicteric. JVD at 9 cm. CARDIOVASCULAR: Grade 1/6 systolic ejection murmur heard best over left upper sternal border. CHEST: Clear to auscultation. Midline spine nontender. ABDOMEN: Soft and nontender. MUSCULOSKELETAL: Does complain on review of systems of left sciatica and diffuse muscle aches. EXTREMITIES: Revealed no edema. ASSESSMENT: 1. Urosepsis due to the urinary tract infection. 2. Myalgias, due to HMG-CoA reductase inhibitor. 3. Acute on chronic renal failure grade 3-4. PLAN: For renal failure, obtain a creatinine today and renal ultrasound to see if there is an obstructive process. Decrease simvastatin to 10 mg at bedtime to see if myalgias improve. Continue IV antibiotics. Continue IV fluids. If kidney function worsens or renal ultrasound shows an abscess formation, we will transfer to a tertiary care center. GERD symptoms non-existent and less burping too, patient tolerating a regular meal. Jose Daniel Baldwin M.D./pos Electronically Signed By: JOSE DANIEL BALDWIN MD On: 10/21/2014 01:00 PM Source: [facility] Document Id: [id number] Jose Daniel Baldwin M.D. - 10/20/2014 12:00 AM CDT [id number] SUBJECTIVE: Patient feeling better, more color, no vomiting. Slight dizziness. Blood pressure has been low, monitoring 87/49. The blood pressure medications, including lisinopril/hydrochlorothiazide, were held pending patient's increase in blood pressure. Heart rate remains in normal sinus rhythm at 76 beats per minute. Will order an EKG in the morning to document sinus rhythm. Laboratory work currently pending. Other vital signs show a temperature 36.6 degrees Celsius, O2 sats 95% on room air, respiratory rate 13, height 168 cm. Actual weight is 64 kg. UA showed 51 to 100 white blood cells. Other laboratory work pending. Chest x-ray read by Radiology showed no acute intrathoracic disease demonstrated on this portable view. PHYSICAL EXAMINATION GENERAL: Patient appeared in no apparent distress. Wearing glasses. Nonicteric. Skin warm. NECK: Supple. HEART: Regular, grade 2/6 systolic ejection murmur. LUNGS: Clear to auscultation bilaterally with no wheezing. ABDOMEN: Soft, nontender. EXTREMITIES: Revealed no edema. IMPRESSION/REPORT/PLAN 1. Sepsis due to urinary tract infection. 2. Chronic kidney disease, stage 2 to 3. 3. Hypertension. 4. Hearing loss. 5. Falls risk with dizziness. PLAN: Continue Zosyn antibiotic IV every 6 hours. IV fluids continue. Monitor blood pressure at the PCU, the progressive care unit with telemetry. Check on laboratory work. Will recheck patient after clinic and go over laboratory work. Patient in agreement with this plan. Jose Daniel Baldwin M.D./pos Electronically Signed By: JOSE DANIEL BALDWIN MD On: 10/21/2014 07:53 AM Source: [facility] Document Id: [id number] documented in this encounter Procedure Notes Abraham Petersen, R.N. - 10/20/2014 11:35 AM CDT Peripheral IV Peripheral IV Entered On: 10/20/2014 11:35 CDT Performed On: 10/20/2014 11:35 CDT by ABRAHAM PETERSEN RN Peripheral IV Peripheral IV Assess/Intervention Grid Peripheral IV #1 Peripheral IV #2 IV Activity : Discontinue Start Number of Attempts : 1 Date of Insertion : 10/19/2014 CDT 10/20/2014 CDT IV Site : Antecubital Forearm Laterality : Left Left Catheter Size : 18 20 Catheter Type : Over the needle Over the needle Site Condition : No complications ABRAHAM PETERSEN RN - 10/20/2014 11:35 CDT ABRAHAM PETERSEN RN - 10/20/2014 11:35 CDT Source: [employer] Document Id: [id number] CDT!19 Abraham Petersen R.N. - 10/20/2014 11:10 AM CDT Peripheral IV Peripheral IV Entered On: 10/20/2014 11:11 CDT Performed On: 10/20/2014 11:10 CDT by ABRAHAM PETERSEN RN Peripheral IV Peripheral IV Assess/Intervention Grid Peripheral IV #1 IV Activity : Discontinue Removal : Catheter intact, Hemostasis within expected timeframe Date of Insertion : 10/19/2014 CDT IV Site : Antecubital Laterality : Left Catheter Size : 18 Catheter Type : Over the needle Site Condition : Erythema, Pain, mild to moderate Drainage Description : None ABRAHAM PETERSEN RN - 10/20/2014 11:10 CDT Source: [employer] Document Id: [id number] CDT!13 documented in this encounter Consult Notes Yara Alejo, Pharm.D. - 10/20/2014 3:14 PM CDT Pharmacy Clinical Interventions Pharmacy Clinical Interventions Entered On: 10/20/2014 15:15 CDT Performed On: 10/20/2014 15:14 CDT by YARA ALEJO PharmD Clinical Interventions Intervention Status : Completed Intervention Task Status : Completed Intervention Type Pharmacy : Dose Adjustment (Renal/Hepatic) Prescriber Response Pharmacy : Accepted Pharmacy Additional Information : tramadol 50-100mg q6hr prn ordered on 78 year old female with scr 2.6, ht 168cm, wt 61.5kg, estcrcl 18ml/min. dose adjusted to 50-100mg q12hr prn as per renal dose adjustment protocol. YARA ALEJO PharmD - 10/20/2014 15:14 CDT Source: [employer] Document Id: [id number] CDT!7 Nan Abbott, R.Ph. - 10/19/2014 11:37 PM CDT Pharmacy Clinical Interventions Document Has Been Updated Pharmacy Clinical Interventions Entered On: 10/19/2014 23:39 CDT Performed On: 10/19/2014 23:37 CDT by NAN ABBOTT [facility] Clinical Interventions Intervention Task Status : Completed Intervention Status : Completed Pharmacist Intervention Time : 11-15 Minutes ANN PAZ - 10/21/2014 13:00 CDT Intervention Type Pharmacy : Dose Adjustment (Renal/Hepatic) Prescriber Response Pharmacy : Accepted NAN ABBOTT [facility] - 10/19/2014 23:37 CDT Pharmacy Additional Information : 78yoF with order for Lovenox 30 mg subcut q12hr for VTE prophylaxis. SCr = 2.6; ABW = 61.5; CrCl < 30; Changed dosing schedule to daily. If renal fx does not improve, please contact hospitalist to consider using heparin subq. Next Scr ordered for AM of 10/21/14. Will need to evaluate at that time. This is a [facility] patient, so rounding hospitalist does not cover, contact chief solution architect MD for [facility]. ADDM: SCr-2.7, CrCl~17. Spoke with Dr. Ed Baldwin and changed Lovenox to heparin 5000 units q12hrs. NAN PAZ - 10/21/2014 13:00 CDT Source: [facility] Document Id: [id number] CDT!6 documented in this encounter Nursing Notes Aleksandar Alas - 10/24/2014 7:17 AM CDT Cardiac Monitoring Cardiac Monitoring Entered On: 10/24/2014 8:27 CDT Performed On: 10/24/2014 7:17 CDT by ALEKSANDAR ALAS Cardiac Monitoring Monitoring Lead : II, V1/MCL1 Ventricular Rate : 79 bpm Ventricular Rhythm : Regular VA Interval : 0.19 QRS Duration : 0.05 second(s) QT Interval : 0.36 second(s) VA Consistency : Consistent QRS Consistency : Consistent ST Segment : Isoelectric Ectopy Frequency : Rare (1-3/min) Cardiac Rhythm Tech : Sinus rhythm, PVC, PJC ALEKSANDAR ALAS - 10/24/2014 8:27 CDT Source: [employer] Document Id: [id number] CDT!13 Dave Mercado R.N. - 10/24/2014 4:30 AM CDT Cardiac Monitoring Cardiac Monitoring Entered On: 10/24/2014 6:36 CDT Performed On: 10/24/2014 4:30 CDT by DAVE MERCADO RN Cardiac Monitoring Monitoring Lead : II, V1/MCL1 Atrial Rate : 72 bpm Atrial Rhythm : Regular Ventricular Rate : 72 bpm Ventricular Rhythm : Regular VA Interval : 0.17 P to QRS Ratio : 1:1 QRS Duration : 0.09 second(s) QT Interval : 0.35 second(s) VA Consistency : Consistent QRS Consistency : Consistent ST Segment : Isoelectric Ectopy Frequency : Occasional (4-8/min) Cardiac Rhythm Tech : Sinus rhythm DAVE MERCADO RN - 10/24/2014 6:35 CDT Source: [employer] Document Id: [id number] CDT!16 Dave Mercado R.N. - 10/23/2014 8:10 PM CDT Cardiac Monitoring Cardiac Monitoring Entered On: 10/24/2014 2:51 CDT Performed On: 10/23/2014 20:10 CDT by DAVE MERCADO RN Cardiac Monitoring Monitoring Lead : II, V1/MCL1 Atrial Rate : 82 bpm Atrial Rhythm : Regular Ventricular Rate : 82 bpm Ventricular Rhythm : Regular VA Interval : 0.14 P to QRS Ratio : 8:9 QRS Duration : 0.07 second(s) QT Interval : 0.36 second(s) VA Consistency : Consistent QRS Consistency : Consistent ST Segment : Isoelectric Ectopy Frequency : Rare (1-3/min) Cardiac Rhythm Tech : Sinus rhythm, PVC DAVE MERCADO RN - 10/24/2014 2:49 CDT Source: [employer] Document Id: [id number] CDT!16 Gume Cooley R.N. - 10/23/2014 6:32 PM CDT Patient had 4 small semi formed dark greenish stool today.No nausea.vitals stable.[facility]DENIED CHEST PAIN.Ambulated in the [address] and toleratedwell. Electronically Signed By: GUME COOLEY RN On: 12/12/2015 07:59 PM Modified by and Electronically Signed by: GUME COOLEY RN On: 10/23/2014 06:34 PM Source: [employer] Document Id: [id number] Gume Cooley RAbimbola - 10/23/2014 5:21 PM CDT Cardiac Monitoring Cardiac Monitoring Entered On: 10/23/2014 17:22 CDT Performed On: 10/23/2014 17:21 CDT by GUME COOLEY RN Cardiac Monitoring Monitoring Lead : II Monitoring Lead Telemarketing Sales Representative : Other: q4h assesment Atrial Rate : 71 bpm Atrial Rhythm : Regular Ventricular Rate : 71 bpm Ventricular Rhythm : Regular VA Interval : 0.16 P to QRS Ratio : 1;1 QRS Duration : 0.06 second(s) QT Interval : 0.36 second(s) VA Consistency : Consistent QRS Consistency : Consistent ST Segment : Isoelectric Ectopy Frequency : None Cardiac Rhythm Tech : Sinus rhythm GUME COOLEY RN - 10/23/2014 17:21 CDT Source: [employer] Document Id: [id number] CDT!17 Abraham Castle - 10/23/2014 3:01 PM CDT Cardiac Monitoring Cardiac Monitoring Entered On: 10/23/2014 15:28 CDT Performed On: 10/23/2014 15:01 CDT by ABRAHAM CASTLE Cardiac Monitoring Monitoring Lead : II Ventricular Rate : 85 bpm Ventricular Rhythm : Regular VA Interval : 0.17 QRS Duration : 0.05 second(s) QT Interval : 0.33 second(s) (Comment: QTc 0.40 sec [ABRAHAM CASTLE - 10/23/2014 15:27 CDT] ) VA Consistency : Consistent QRS Consistency : Consistent ST Segment : Isoelectric Ectopy Frequency : Rare (1-3/min) Cardiac Rhythm Tech : Sinus rhythm, PVC ABRAHAM CASTLE - 10/23/2014 15:27 CDT [facility] Document Id: [id number] CDT!13 Aleksandar Alas - 10/23/2014 1:41 PM CDT Cardiac Monitoring Cardiac Monitoring Entered On: 10/23/2014 13:42 CDT Performed On: 10/23/2014 13:41 CDT by ALEKSANDAR ALAS Cardiac Monitoring Ectopy Frequency : Rare (1-3/min) Ectopic Pattern : Couplets Cardiac Rhythm Tech : Sinus rhythm, PAC ALEKSANDAR ALAS - 10/23/2014 13:41 CDT [facility] Document Id: [id number] CDT!5 Gume Cooley R.N. - 10/23/2014 12:29 PM CDT Cardiac Monitoring Cardiac Monitoring Entered On: 10/23/2014 13:56 CDT Performed On: 10/23/2014 12:29 CDT by GUME COOLEY hydraulic tester Monitoring Monitoring Lead : II Monitoring Lead Telemarketing Sales Representative : Other: Q4H ASSESMENT Atrial Rate : 75 bpm Atrial Rhythm : Regular Ventricular Rate : 75 bpm Ventricular Rhythm : Regular VA Interval : 0.18 P to QRS Ratio : 1:1 QRS Duration : 0.06 second(s) QT Interval : 0.36 second(s) VA Consistency : Consistent QRS Consistency : Consistent ST Segment : Isoelectric Ectopy Frequency : None Cardiac Rhythm Tech : Sinus rhythm GUME COOLEY RN - 10/23/2014 13:55 CDT Source: [employer] Document Id: [id number] CDT!17 eLti Matthews RDN, - 10/23/2014 11:25 AM CDT Nutrition Assessment Adult Document Has Been Updated Nutrition Assessment Adult Entered On: 10/23/2014 11:36 CDT Performed On: 10/23/2014 11:25 CDT by LETI ESPINAL RDN Assessment I Adult Nutrition Orders : Diet - 10/19/14 23:12:00 CDT, General (No Restrictions) Appetite : Good LETI ESPINAL RDN - 10/23/2014 11:25 CDT Assessment II Adult Physical Appearance : Well nourished Height : 168 cm(Converted to: 5 ft 6 inch(es)) LETI ESPINAL RDN - 10/23/2014 11:[address]N - 10/23/2014 13:21 CDT [place] Body Weight : 61.3 kg [place] Body Weight Conversion to Pounds : 134.86 lb LETI ESPINAL RDN - 10/23/2014 11:[address]N - 10/23/2014 13:21 CDT Assessment Weight : 64.5 kg Weight Used for Assessment Weight : Current weight Pertinent Labs : GFR: 21.6 BUN: 18 Creat: 2.2 Assessment Weight Conversion to Pounds : 141.9 Energy Needs Assessment Low Range : 25 Kcal/kg Energy Needs Assessment High Range : 30 Kcal/kg Protein Needs Assessment Low Range : 0.75 gm/kg Energy Needs Calculated Low Range : 1,610 Energy Needs Calculated High Range : 1,935 Protein Needs Calculated Low Range : 48.[address] - 10/23/2014 11:25 CDT Needs Additional Information : 10/23/14 Received consult to educate on Pre-Renal Diet. Patient has Stage IV CKD. No history of diabetes. Patient presented to ED 10/19 with dizziness with symptoms associated with nausea, vomiting and fever. Shewas admitted to PCU and current plan is for patient to transition to TCU today. Patient has one kidney and per EMR her it is atrophic. Potassiium & Calcium levels are w/i normal limites. Visited with patient to educate on pre-renal diet. Review of diet history and patient consumes 3 meals/day withthe occasional snack. At this time do not feel that patient is consuming a particularly large amountof protein. Meals are well balanced. Pt expresses that her portion sizes are not very large. Each meal does contain protein ie. Breakfast: scrambled eggs - 1 or 2; toast, orange. Snack: Yogurt (about 3tbsp) with fruit. L: Chicken, baked potato, vegetables; S: leftovers such as lasanga, porkchops, chicken or steak. Patient estimates portion sizes of meats are about 6 ounces. Note: Did propose diet change from general to renal (CKD). LETI ESPINAL RDN - 10/23/2014 13:21 CDT Nutrition Diagnosis Nutrition Diagnostic Label/Problem 1 : Food and nutrition-related knowledge deficit Nutrition Common Etiology 1 : lack of prior nutriton education Nutrition Common Signs/Symptoms 1 : patient unaware of protein restriciton diet with CKD. LETI ESPINAL RDN - 10/23/2014 11:25 CDT Plan/Goals Nutrition Plan of Care : Dietitian follow up/monitor, Initial/brief nutrition education Intervention, Monitoring, and Evaluation : Intervention: Provided brief nutrition education on CKD diet Monitor: Will follow for additional learning needs and per dept protocol. LETI ESPINAL RDN - 10/23/2014 11:25 CDT Education - Nutrition Nutrition Education Grid Education Topics Nutrition : Label reading, Low protein diet, Low sodium diet Individuals Taught : Patient, Family member Barriers to Learning : None evident Teaching Method : Explanation, Printed materials, Other: food label Teaching Evaluation : Verbalizes understanding LETI ESPINAL RDN - 10/23/2014 11:25 CDT [facility] Document Id: [id number] CDT!6 Evelyn David R.N. - 10/23/2014 10:07 AM CDT Cardiac Monitoring Cardiac Monitoring Entered On: 10/23/2014 10:13 CDT Performed On: 10/23/2014 10:07 CDT by EVELYN DAVID hydraulic tester Monitoring Monitoring Lead : II Atrial Rate : 84 bpm Atrial Rhythm : Regular Ventricular Rate : 84 bpm Ventricular Rhythm : Regular VA Interval : 0.17 P to QRS Ratio : 1:1 QRS Duration : 0.06 second(s) QT Interval : 0.32 second(s) VA Consistency : Consistent QRS Consistency : Consistent ST Segment : Isoelectric Ectopy Frequency : None Cardiac Rhythm Tech : Sinus rhythm EVELYN DAVID RN - 10/23/2014 10:07 CDT Source: [employer] Document Id: [id number] CDT!16 Aleksandar Alas - 10/23/2014 7:02 AM CDT Cardiac Monitoring Cardiac Monitoring Entered On: 10/23/2014 7:51 CDT Performed On: 10/23/2014 7:02 CDT by ALEKSANDAR ALAS Cardiac Monitoring Monitoring Lead : II, V1/MCL1 Ventricular Rate : 69 bpm Ventricular Rhythm : Regular VA Interval : 0.19 QRS Duration : 0.07 second(s) QT Interval : 0.34 second(s) VA Consistency : Consistent QRS Consistency : Consistent ST Segment : Isoelectric Cardiac Rhythm Tech : Sinus rhythm ALEKSANDAR ALAS - 10/23/2014 7:50 CDT Source: [employer] Document Id: [id number] CDT!12 Vijaya Martin - 10/23/2014 5:29 AM CDT Cardiac Monitoring Cardiac Monitoring Entered On: 10/23/2014 5:29 CDT Performed On: 10/23/2014 5:29 CDT by VIJAYA MARTIN Cardiac Monitoring Ectopy Frequency : Occasional (4-8/min) Ectopic Pattern : Couplets Ectopy Description Telemarketing Sales Representative : Unifocal Cardiac Rhythm Tech : Sinus rhythm, PAC, PVC, PJC VIJAYA MARTIN - 10/23/2014 5:29 CDT Source: [employer] Document Id: [id number] CDT!6 Conversion, Historical Provider Ser - 10/23/2014 5:21 AM CDT Cardiac Monitoring Cardiac Monitoring Entered On: 10/23/2014 5:22 CDT Performed On: 10/23/2014 5:21 CDT by MIR SALINAS RN Cardiac Monitoring Monitoring Lead : II Atrial Rate : 66 bpm Atrial Rhythm : Regular Ventricular Rate : 66 bpm Ventricular Rhythm : Regular VA Interval : .18 P to QRS Ratio : 1-1 QRS Duration : 0.09 second(s) QT Interval : 0.38 second(s) VA Consistency : Consistent QRS Consistency : Consistent ST Segment : Isoelectric Cardiac Rhythm Tech : Sinus rhythm MIR SALINAS RN - 10/23/2014 5:21 CDT Source: [employer] Document Id: [id number] CDT!15 Conversion, Historical Provider Ser - 10/23/2014 12:55 AM CDT Cardiac Monitoring Cardiac Monitoring Entered On: 10/23/2014 0:56 CDT Performed On: 10/23/2014 0:55 CDT by MIR SALINAS RN Cardiac Monitoring Monitoring Lead : II Atrial Rate : 79 bpm Atrial Rhythm : Regular Ventricular Rate : 79 bpm Ventricular Rhythm : Regular VA Interval : .19 P to QRS Ratio : 1-1 QRS Duration : 0.06 second(s) QT Interval : 0.34 second(s) VA Consistency : Consistent QRS Consistency : Consistent ST Segment : Isoelectric Cardiac Rhythm Tech : Sinus rhythm MIR SALINAS RN - 10/23/2014 0:55 CDT Source: [employer] Document Id: [id number] CDT!15 Vijaya Martin - 10/22/2014 11:02 PM CDT Cardiac Monitoring Cardiac Monitoring Entered On: 10/22/2014 23:04 CDT Performed On: 10/22/2014 23:02 CDT by VIJAYA MARTIN Cardiac Monitoring Monitoring Lead : II, V1/MCL1 Monitoring Lead Telemarketing Sales Representative : Initiated Ventricular Rate : 89 bpm Ventricular Rhythm : Regular VA Interval : 0.16 QRS Duration : 0.08 second(s) QT Interval : 0.30 second(s) (Comment: QTc 0.36 [VIJAYA MARTIN - 10/22/2014 23:02 CDT] ) VA Consistency : Consistent QRS Consistency : Consistent ST Segment : Isoelectric Ectopy Frequency : Occasional (4-8/min) Ectopic Pattern : Other: PSVT run 7 beats HR 149 bpm Ectopy Description Telemarketing Sales Representative : Unifocal Cardiac Rhythm Tech : Sinus rhythm, PAC, PVC VIJAYA MARTIN - 10/22/2014 23:02 CDT Source: [employer] Document Id: [id number] CDT!16 Conversion, Historical Provider Ser - 10/22/2014 8:47 PM CDT Cardiac Monitoring Cardiac Monitoring Entered On: 10/22/2014 20:48 CDT Performed On: 10/22/2014 20:47 CDT by MIR SALINAS RN Cardiac Monitoring Monitoring Lead : II Atrial Rate : 100 bpm Atrial Rhythm : Regular Ventricular Rate : 100 bpm Ventricular Rhythm : Regular VA Interval : .17 P to QRS Ratio : 1-1 QRS Duration : 0.07 second(s) QT Interval : 0.35 second(s) VA Consistency : Consistent QRS Consistency : Consistent ST Segment : Isoelectric Cardiac Rhythm Tech : Sinus rhythm MIR SALINAS RN - 10/22/2014 20:47 CDT Source: [employer] Document Id: [id number] CDT!15 Juan Antonio Beckford R.N. - 10/22/2014 5:10 PM CDT Cardiac Monitoring Cardiac Monitoring Entered On: 10/22/2014 17:15 CDT Performed On: 10/22/2014 17:10 CDT by JUAN ANTONIO BECKFORD RN Cardiac Monitoring Monitoring Lead : II, V1/MCL1 Monitoring Lead Telemarketing Sales Representative : Other: continued Atrial Rate : 82 bpm Atrial Rhythm : Regular Ventricular Rate : 82 bpm Ventricular Rhythm : Regular VA Interval : 0.16 P to QRS Ratio : 1:1 QRS Duration : 0.09 second(s) QT Interval : 0.32 second(s) VA Consistency : Consistent QRS Consistency : Consistent ST Segment : Isoelectric Cardiac Rhythm Tech : Sinus rhythm, PAC JUAN ANTONIO BECKFORD RN - 10/22/2014 17:10 CDT Source: [employer] Document Id: [id number] CDT!16 Lisandra English - 10/22/2014 3:18 PM CDT Cardiac Monitoring Cardiac Monitoring Entered On: 10/22/2014 16:35 CDT Performed On: 10/22/2014 15:18 CDT by LISANDRA ENGLISH Cardiac Monitoring Monitoring Lead : II, V1/MCL1 Monitoring Lead Telemarketing Sales Representative : Initiated Ventricular Rate : 76 bpm Ventricular Rhythm : Regular VA Interval : 0.15 QRS Duration : 0.06 second(s) QT Interval : 0.34 second(s) VA Consistency : Consistent QRS Consistency : Consistent ST Segment : Isoelectric Cardiac Rhythm Tech : Sinus rhythm LISANDRA ENGLISH - 10/22/2014 16:34 CDT Source: [employer] Document Id: [id number] CDT!13 Juan Antonio Beckford R.N. - 10/22/2014 12:20 PM CDT Cardiac Monitoring Cardiac Monitoring Entered On: 10/22/2014 17:16 CDT Performed On: 10/22/2014 12:20 CDT by JUAN ANTONIO BECKFORD RN Cardiac Monitoring Monitoring Lead : II, V1/MCL1 Monitoring Lead Telemarketing Sales Representative : Other: continued Atrial Rate : 74 bpm Atrial Rhythm : Regular Ventricular Rate : 74 bpm Ventricular Rhythm : Regular VA Interval : 0.17 P to QRS Ratio : 1:1 QRS Duration : 0.11 second(s) QT Interval : 0.36 second(s) VA Consistency : Consistent QRS Consistency : Consistent ST Segment : Isoelectric Ectopy Frequency : Occasional (4-8/min) Cardiac Rhythm Tech : Sinus rhythm, PAC JUAN ANTONIO BECKFORD RN - 10/22/2014 17:15 CDT Source: [employer] Document Id: [id number] CDT!17 Juan Antonio Beckford RAbimbola - 10/22/2014 10:01 AM CDT Cardiac Monitoring Cardiac Monitoring Entered On: 10/22/2014 10:02 CDT Performed On: 10/22/2014 10:01 CDT by JUAN ANTONIO BECKFORD RN Cardiac Monitoring Monitoring Lead : II, V1/MCL1 Monitoring Lead Telemarketing Sales Representative : Other: continued monitoring Atrial Rate : 73 bpm Atrial Rhythm : Regular Ventricular Rate : 73 bpm Ventricular Rhythm : Regular VA Interval : 0.18 P to QRS Ratio : 1:1 QRS Duration : 0.09 second(s) QT Interval : 0.36 second(s) VA Consistency : Consistent QRS Consistency : Consistent ST Segment : Isoelectric Ectopy Frequency : Occasional (4-8/min) Ectopy Description Telemarketing Sales Representative : Unifocal Cardiac Rhythm Tech : Sinus rhythm, PAC JUAN ANTONIO BECKFORD RN - 10/22/2014 10:01 CDT Source: [employer] Document Id: [id number] CDT!18 Lisandra English - 10/22/2014 7:18 AM CDT Cardiac Monitoring Cardiac Monitoring Entered On: 10/22/2014 7:53 CDT Performed On: 10/22/2014 7:18 CDT by LISANDRA ENGLISH Cardiac Monitoring Monitoring Lead : II, V1/MCL1 Monitoring Lead Telemarketing Sales Representative : Initiated Ventricular Rate : 73 bpm Ventricular Rhythm : Regular VA Interval : 0.17 QRS Duration : 0.06 second(s) QT Interval : 0.37 second(s) VA Consistency : Consistent QRS Consistency : Consistent ST Segment : Isoelectric Cardiac Rhythm Tech : Sinus rhythm LISANDRA ENGLISH - 10/22/2014 7:53 CDT Source: [employer] Document Id: [id number] CDT!13 Conversion, Historical Provider Ser - 10/22/2014 6:28 AM CDT Focused Assessment - Gastrointestinal Focused Assessment - Gastrointestinal Entered On: 10/22/2014 6:29 CDT Performed On: 10/22/2014 6:28 CDT by MIR SALINAS RN Gastrointestinal Bowel Movement Last Date : 10/21/2014 CDT Bowel Sounds All Quadrants : Present Stool Color : Brown Stool Description : Seedy Stool Amount : Moderate Passing Flatus : Yes MIR SALINAS RN - 10/22/2014 6:28 CDT Source: [employer] Document Id: [id number] CDT!8 Vijaya Martin - 10/22/2014 5:33 AM CDT Cardiac Monitoring Cardiac Monitoring Entered On: 10/22/2014 5:34 CDT Performed On: 10/22/2014 5:33 CDT by VIJAYA MARTIN Cardiac Monitoring Ectopy Frequency : Rare (1-3/min) Ectopic Pattern : Couplets Ectopy Description Telemarketing Sales Representative : Unifocal Cardiac Rhythm Tech : Sinus rhythm, PAC, PVC VIJAYA MARTIN - 10/22/2014 5:33 CDT Source: [employer] Document Id: [id number] CDT!6 Conversion, Historical Provider Ser - 10/22/2014 5:13 AM CDT Cardiac Monitoring Cardiac Monitoring Entered On: 10/22/2014 5:13 CDT Performed On: 10/22/2014 5:13 CDT by IMR SALINAS RN Cardiac Monitoring Monitoring Lead : II Atrial Rate : 77 bpm Atrial Rhythm : Regular Ventricular Rate : 77 bpm Ventricular Rhythm : Regular VA Interval : .19 P to QRS Ratio : 1-1 QRS Duration : 0.07 second(s) QT Interval : 0.34 second(s) VA Consistency : Consistent QRS Consistency : Consistent ST Segment : Isoelectric Cardiac Rhythm Tech : Sinus rhythm MIR SALINAS RN - 10/22/2014 5:13 CDT Source: [employer] Document Id: [id number] CDT!15 Conversion, Historical Provider Ser - 10/22/2014 12:54 AM CDT Cardiac Monitoring Cardiac Monitoring Entered On: 10/22/2014 0:55 CDT Performed On: 10/22/2014 0:54 CDT by MIR SALINAS RN Cardiac Monitoring Monitoring Lead : II Atrial Rate : 72 bpm Atrial Rhythm : Regular Ventricular Rate : 72 bpm Ventricular Rhythm : Regular VA Interval : .20 P to QRS Ratio : 1-1 QRS Duration : 0.08 second(s) QT Interval : 0.35 second(s) VA Consistency : Consistent QRS Consistency : Consistent ST Segment : Isoelectric Cardiac Rhythm Tech : Sinus rhythm MIR SALINAS RN - 10/22/2014 0:54 CDT Source: [employer] Document Id: [id number] CDT!15 Vijaya Martin - 10/21/2014 11:13 PM CDT Cardiac Monitoring Cardiac Monitoring Entered On: 10/21/2014 23:17 CDT Performed On: 10/21/2014 23:13 CDT by VIJAYA MARITN Cardiac Monitoring Monitoring Lead : II, V1/MCL1 Monitoring Lead Telemarketing Sales Representative : Initiated Ventricular Rate : 74 bpm Ventricular Rhythm : Regular VA Interval : 0.14 QRS Duration : 0.06 second(s) QT Interval : 0.33 second(s) VA Consistency : Consistent QRS Consistency : Consistent ST Segment : Isoelectric Ectopy Frequency : Occasional (4-8/min) Ectopic Pattern : Other: PAT run 5 beats HR 121 bpm Ectopy Description Telemarketing Sales Representative : Unifocal Cardiac Rhythm Tech : Sinus rhythm, PAC, PVC VIJAYA MARTIN - 10/21/2014 23:13 CDT Source: [employer] Document Id: [id number] CDT!16 Conversion, Historical Provider Ser - 10/21/2014 10:10 PM CDT Cardiac Monitoring Cardiac Monitoring Entered On: 10/21/2014 22:11 CDT Performed On: 10/21/2014 22:10 CDT by MIR SALINAS RN Cardiac Monitoring Monitoring Lead : II Atrial Rate : 77 bpm Atrial Rhythm : Regular Ventricular Rate : 77 bpm Ventricular Rhythm : Regular VA Interval : .14 P to QRS Ratio : 1-1 QRS Duration : 0.06 second(s) QT Interval : 0.36 second(s) VA Consistency : Consistent QRS Consistency : Consistent ST Segment : Isoelectric Cardiac Rhythm Tech : Sinus rhythm MIR SALINAS RN - 10/21/2014 22:10 CDT Source: [employer] Document Id: [id number] CDT!15 Juan Antonio Beckford R.N. - 10/21/2014 4:25 PM CDT Cardiac Monitoring Cardiac Monitoring Entered On: 10/21/2014 16:25 CDT Performed On: 10/21/2014 16:25 CDT by JUAN ANTONIO BECKFORD RN Cardiac Monitoring Monitoring Lead : II, V1/MCL1 Monitoring Lead Telemarketing Sales Representative : Other: conitnued monitoring Atrial Rate : 73 bpm Atrial Rhythm : Regular Ventricular Rate : 73 bpm Ventricular Rhythm : Regular VA Interval : 0.18 P to QRS Ratio : 1:1 QRS Duration : 0.08 second(s) QT Interval : 0.35 second(s) VA Consistency : Consistent QRS Consistency : Consistent ST Segment : Isoelectric Ectopy Frequency : Rare (1-3/min) Ectopy Description Telemarketing Sales Representative : Unifocal Cardiac Rhythm Tech : Sinus rhythm, PVC JUAN ANTONIO BECKFORD RN - 10/21/2014 16:25 CDT Source: [employer] Document Id: [id number] CDT!18 Lisandra English - 10/21/2014 3:06 PM CDT Cardiac Monitoring Cardiac Monitoring Entered On: 10/21/2014 15:29 CDT Performed On: 10/21/2014 15:06 CDT by LISANDRA ENGLISH Cardiac Monitoring Monitoring Lead : II, V1/MCL1 Monitoring Lead Telemarketing Sales Representative : Initiated Ventricular Rate : 78 bpm Ventricular Rhythm : Regular VA Interval : 0.17 QRS Duration : 0.06 second(s) QT Interval : 0.33 second(s) VA Consistency : Consistent QRS Consistency : Consistent ST Segment : Isoelectric Cardiac Rhythm Tech : Sinus rhythm LISANDRA ENGLISH - 10/21/2014 15:29 CDT Source: [employer] Document Id: [id number] CDT!13 Juan Antonio Beckford R.N. - 10/21/2014 12:00 PM CDT Cardiac Monitoring Cardiac Monitoring Entered On: 10/21/2014 15:12 CDT Performed On: 10/21/2014 12:00 CDT by JUAN ANTONIO BECKFORD RN Cardiac Monitoring Monitoring Lead : II, V1/MCL1 Monitoring Lead Telemarketing Sales Representative : Other: continued monitoring Atrial Rate : 72 bpm Atrial Rhythm : Regular Ventricular Rate : 72 bpm Ventricular Rhythm : Regular VA Interval : 0.17 P to QRS Ratio : 1:1 QRS Duration : 0.09 second(s) QT Interval : 0.35 second(s) VA Consistency : Consistent QRS Consistency : Consistent ST Segment : Isoelectric Ectopy Frequency : Rare (1-3/min) Cardiac Rhythm Tech : Sinus rhythm, PVC JUAN ANTONIO BECKFORD RN - 10/21/2014 15:10 CDT Source: [employer] Document Id: [id number] CDT!17 Juan Antonio Beckford R.N. - 10/21/2014 8:00 AM CDT Cardiac Monitoring Cardiac Monitoring Entered On: 10/21/2014 15:13 CDT Performed On: 10/21/2014 8:00 CDT by JUAN ANTONIO BECKFORD RN Cardiac Monitoring Monitoring Lead : II, V1/MCL1 Monitoring Lead Telemarketing Sales Representative : Other: continued Atrial Rate : 80 bpm Atrial Rhythm : Regular Ventricular Rate : 80 bpm Ventricular Rhythm : Regular VA Interval : 0.16 P to QRS Ratio : 1:1 QRS Duration : 0.08 second(s) QT Interval : 0.34 second(s) VA Consistency : Consistent QRS Consistency : Consistent ST Segment : Isoelectric Ectopy Frequency : None Cardiac Rhythm Tech : Sinus rhythm JUAN ANTONIO BECKFORD RN - 10/21/2014 15:12 CDT Source: [employer] Document Id: [id number] CDT!17 Lisandra English - 10/21/2014 7:21 AM CDT Cardiac Monitoring Cardiac Monitoring Entered On: 10/21/2014 8:25 CDT Performed On: 10/21/2014 7:21 CDT by LISANDRA ENGLISH Cardiac Monitoring Monitoring Lead : II, V1/MCL1 Monitoring Lead Telemarketing Sales Representative : Initiated Ventricular Rate : 71 bpm Ventricular Rhythm : Regular VA Interval : 0.19 QRS Duration : 0.06 second(s) QT Interval : 0.35 second(s) VA Consistency : Consistent QRS Consistency : Consistent ST Segment : Isoelectric Cardiac Rhythm Tech : Sinus rhythm LISANDRA ENGLISH - 10/21/2014 8:25 CDT Source: [employer] Document Id: [id number] CDT!13 Juan Antonio Beckford RXeniaNXenia - 10/21/2014 7:05 AM CDT Cardiac Monitoring Cardiac Monitoring Entered On: 10/21/2014 15:14 CDT Performed On: 10/21/2014 7:05 CDT by JUAN ANTONIO BECKFORD RN Cardiac Monitoring Monitoring Lead : II, V1/MCL1 Monitoring Lead Telemarketing Sales Representative : Other: Moved to [facility] from [facility] Atrial Rate : 77 bpm Atrial Rhythm : Regular Ventricular Rate : 77 bpm Ventricular Rhythm : Regular VA Interval : 0.18 P to QRS Ratio : 1:1 QRS Duration : 0.09 second(s) QT Interval : 0.35 second(s) VA Consistency : Consistent QRS Consistency : Consistent ST Segment : Isoelectric Ectopy Frequency : Rare (1-3/min) Ectopy Description Telemarketing Sales Representative : Unifocal Cardiac Rhythm Tech : Sinus rhythm, PVC JUAN ANTONIO BECKFORD RN - 10/21/2014 15:13 CDT Source: [employer] Document Id: [id number] CDT!18 Conversion, Historical Provider Ser - 10/21/2014 5:36 AM CDT Protocol Vascular Access Adult Protocol Vascular Access Adult Entered On: 10/21/2014 5:36 CDT Performed On: 10/21/2014 5:36 CDT by MIR SALINAS RN Vascular Access Adult Protocol Age 15 years or older Adult Protocol : Yes Vascular Access Device Adult : Yes Exclusion Criteria Adult Vascular Access Protocol : Patient has none of the below exclusions Vascular Access Protocol Status Adult : Criteria Met MIR SALINAS RN - 10/21/2014 5:36 CDT Source: [employer] Document Id: [id number] CDT!6 Conversion, Historical Provider Ser - 10/21/2014 5:28 AM CDT Cardiac Monitoring Cardiac Monitoring Entered On: 10/21/2014 5:29 CDT Performed On: 10/21/2014 5:28 CDT by MIR SALINAS RN Cardiac Monitoring Monitoring Lead : II Atrial Rate : 77 bpm Atrial Rhythm : Regular Ventricular Rate : 77 bpm Ventricular Rhythm : Regular VA Interval : .20 P to QRS Ratio : 1-1 QRS Duration : 0.09 second(s) QT Interval : 0.34 second(s) VA Consistency : Consistent QRS Consistency : Consistent ST Segment : Isoelectric Cardiac Rhythm Tech : Sinus rhythm MIR SALINAS RN - 10/21/2014 5:28 CDT Source: [employer] Document Id: [id number] CDT!15 Vijaya Martin - 10/21/2014 3:10 AM CDT Cardiac Monitoring Cardiac Monitoring Entered On: 10/21/2014 3:40 CDT Performed On: 10/21/2014 3:10 CDT by VIJAYA MARTIN Cardiac Monitoring Monitoring Lead : II, V1/MCL1 Monitoring Lead Telemarketing Sales Representative : Initiated Ventricular Rate : 71 bpm Ventricular Rhythm : Regular VA Interval : 0.20 QRS Duration : 0.08 second(s) QT Interval : 0.34 second(s) (Comment: QTc 0.37 [VIJAYA MARTIN - 10/21/2014 3:38 CDT] ) VA Consistency : Consistent (Comment: Long VA [MO VIJAYA - 10/21/2014 3:38 CDT] ) QRS Consistency : Consistent ST Segment : Isoelectric Ectopy Frequency : Rare (1-3/min) Ectopy Description Telemarketing Sales Representative : Unifocal Cardiac Rhythm Tech : Sinus rhythm, PAC, PVC, First degree heart block VIJAYA MARTIN - 10/21/2014 3:38 CDT Source: [employer] Document Id: [id number] CDT!15 Conversion, Historical Provider Ser - 10/21/2014 2:25 AM CDT Cardiac Monitoring Cardiac Monitoring Entered On: 10/21/2014 2:26 CDT Performed On: 10/21/2014 2:25 CDT by MIR SALINAS RN Cardiac Monitoring Monitoring Lead : II Atrial Rate : 70 bpm Atrial Rhythm : Regular Ventricular Rate : 70 bpm Ventricular Rhythm : Regular VA Interval : .17 P to QRS Ratio : 1-1 QRS Duration : 0.08 second(s) QT Interval : 0.37 second(s) VA Consistency : Consistent QRS Consistency : Consistent ST Segment : Isoelectric Cardiac Rhythm Tech : Sinus rhythm MIR SALINAS RN - 10/21/2014 2:25 CDT Source: [employer] Document Id: [id number] CDT!15 Conversion, Historical Provider Ser - 10/21/2014 12:48 AM CDT Cardiac Monitoring Cardiac Monitoring Entered On: 10/21/2014 0:50 CDT Performed On: 10/21/2014 0:48 CDT by MIR SALINAS RN Cardiac Monitoring Monitoring Lead : II Atrial Rate : 75 bpm Atrial Rhythm : Regular Ventricular Rate : 75 bpm Ventricular Rhythm : Regular VA Interval : .15 P to QRS Ratio : 1-1 QRS Duration : 0.08 second(s) QT Interval : 0.37 second(s) VA Consistency : Consistent QRS Consistency : Consistent ST Segment : Isoelectric Cardiac Rhythm Tech : Sinus rhythm MIR SALINAS RN - 10/21/2014 0:48 CDT Source: [employer] Document Id: [id number] CDT!15 Vijaya Martin - 10/20/2014 11:14 PM CDT Cardiac Monitoring Cardiac Monitoring Entered On: 10/20/2014 23:31 CDT Performed On: 10/20/2014 23:14 CDT by VIJAYA MARTIN Cardiac Monitoring Monitoring Lead : II, V1/MCL1 Monitoring Lead Telemarketing Sales Representative : Initiated Ventricular Rate : 76 bpm Ventricular Rhythm : Regular VA Interval : 0.18 QRS Duration : 0.08 second(s) QT Interval : 0.35 second(s) (Comment: QTc 0.39 [VIJAYA MARTIN - 10/20/2014 23:31 CDT] ) VA Consistency : Consistent QRS Consistency : Consistent ST Segment : Isoelectric Ectopy Frequency : Rare (1-3/min) Ectopy Description Telemarketing Sales Representative : Unifocal Cardiac Rhythm Tech : Sinus rhythm, PAC, PVC VIJAYA MARTIN - 10/20/2014 23:31 CDT Source: [employer] Document Id: [id number] CDT!15 Vijaya Martin - 10/20/2014 7:16 PM CDT Cardiac Monitoring Cardiac Monitoring Entered On: 10/20/2014 19:17 CDT Performed On: 10/20/2014 19:16 CDT by VIJAYA MARTIN Cardiac Monitoring Monitoring Lead : II, V1/MCL1 Monitoring Lead Telemarketing Sales Representative : Initiated Ventricular Rate : 74 bpm Ventricular Rhythm : Regular VA Interval : 0.18 P to QRS Ratio : 1:1 QRS Duration : 0.06 second(s) QT Interval : 0.34 second(s) (Comment: QTc 0.37 [VIJAYA MARTIN - 10/20/2014 19:16 CDT] ) VA Consistency : Consistent QRS Consistency : Consistent ST Segment : Isoelectric Cardiac Rhythm Tech : Sinus rhythm VIJAYA MARTIN - 10/20/2014 19:16 CDT Source: [employer] Document Id: [id number] CDT!14 Alicia Sheikh RAbimbola - 10/20/2014 4:30 PM CDT Cardiac Monitoring Cardiac Monitoring Entered On: 10/20/2014 18:42 CDT Performed On: 10/20/2014 16:30 CDT by ALICIA SHEIKH RN Cardiac Monitoring Monitoring Lead : II Atrial Rate : 74 bpm Atrial Rhythm : Regular Ventricular Rate : 74 bpm Ventricular Rhythm : Regular VA Interval : .19 P to QRS Ratio : 1:1 QRS Duration : 0.07 second(s) QT Interval : 0.35 second(s) VA Consistency : Consistent QRS Consistency : Consistent ST Segment : Isoelectric Ectopy Frequency : None Cardiac Rhythm Tech : Sinus rhythm ALICIA SHEIKH RN - 10/20/2014 18:42 CDT Source: [employer] Document Id: [id number] CDT!16 Lisandra English - 10/20/2014 3:03 PM CDT Cardiac Monitoring Cardiac Monitoring Entered On: 10/20/2014 15:17 CDT Performed On: 10/20/2014 15:03 CDT by LISANDRA ENGLISH Cardiac Monitoring Monitoring Lead : II, V1/MCL1 Monitoring Lead Telemarketing Sales Representative : Initiated Ventricular Rate : 82 bpm Ventricular Rhythm : Regular VA Interval : 0.20 QRS Duration : 0.04 second(s) QT Interval : 0.34 second(s) VA Consistency : Consistent QRS Consistency : Consistent ST Segment : Isoelectric Cardiac Rhythm Tech : Sinus rhythm LISANDRA ENGLISH - 10/20/2014 15:17 CDT Source: [employer] Document Id: [id number] CDT!13 Alicia Sheikh RAbimbola - 10/20/2014 1:25 PM CDT Cardiac Monitoring Document Has Been Updated Cardiac Monitoring Entered On: 10/20/2014 14:11 CDT Performed On: 10/20/2014 13:25 CDT by ALICIA SHEIKH RN Cardiac Monitoring Monitoring Lead : II Atrial Rate : 80 bpm Atrial Rhythm : Regular Ventricular Rate : 80 bpm Ventricular Rhythm : Regular VA Interval : .18 P to QRS Ratio : 1:1 QRS Duration : 0.09 second(s) ALICIA SHEIKH RN - 10/20/2014 14:11 CDT QT Interval : 0.40 second(s) ALICIA SHEIKH RN - 10/20/2014 14:12 CDT VA Consistency : Consistent ST Segment : Isoelectric Ectopy Frequency : None Cardiac Rhythm Tech : Sinus rhythm ALICIA SHEIKH RN - 10/20/2014 14:11 CDT Source: [employer] Document Id: [id number] CDT!3 Alicia Sheikh R.N. - 10/20/2014 8:12 AM CDT Cardiac Monitoring Cardiac Monitoring Entered On: 10/20/2014 8:13 CDT Performed On: 10/20/2014 8:12 CDT by ALICIA SHEIKH RN Cardiac Monitoring Monitoring Lead : II Atrial Rate : 81 bpm Atrial Rhythm : Regular Ventricular Rate : 81 bpm Ventricular Rhythm : Regular VA Interval : .18 P to QRS Ratio : 1:1 QRS Duration : 0.08 second(s) QT Interval : 0.37 second(s) VA Consistency : Consistent QRS Consistency : Consistent ST Segment : Isoelectric Ectopy Frequency : None Cardiac Rhythm Tech : Sinus rhythm ALICIA SHEIKH RN - 10/20/2014 8:12 CDT Source: [employer] Document Id: [id number] CDT!16 Lisandra English - 10/20/2014 7:14 AM CDT Cardiac Monitoring Cardiac Monitoring Entered On: 10/20/2014 7:36 CDT Performed On: 10/20/2014 7:14 CDT by LISANDRA ENGLISH Cardiac Monitoring Monitoring Lead : II, V1/MCL1 Monitoring Lead Telemarketing Sales Representative : Initiated Ventricular Rate : 77 bpm Ventricular Rhythm : Regular VA Interval : 0.21 QRS Duration : 0.05 second(s) QT Interval : 0.38 second(s) VA Consistency : Consistent QRS Consistency : Consistent ST Segment : Isoelectric Cardiac Rhythm Tech : Sinus rhythm, First degree heart block LISANDRA ENGLISH - 10/20/2014 7:35 CDT Source: [employer] Document Id: [id number] CDT!13 Alisha Walton RXeniaNXenia - 10/20/2014 6:40 AM CDT end of shift Slept fairly well. Denies any chilling or nausea and dizziness this am. [place] to [facility] [place] well. Feels thirsty. Son at bedside this am. Electronically Signed By: ALISHA WALTON RN On: 10/20/2014 06:41 AM Source: [employer] Document Id: [id number] Tej Cox - 10/20/2014 5:52 AM CDT Cardiac Monitoring Cardiac Monitoring Entered On: 10/20/2014 5:52 CDT Performed On: 10/20/2014 5:52 CDT by TEJ COX Cardiac Monitoring Monitoring Lead : II, V1/MCL1 Ventricular Rate : 83 bpm Ventricular Rhythm : Regular VA Interval : 0.19 QRS Duration : 0.10 second(s) QT Interval : 0.35 second(s) Cardiac Rhythm Tech : Sinus rhythm TEJ COX - 10/20/2014 5:52 CDT Source: [employer] Document Id: [id number] CDT!9 Alisha Walton R.N. - 10/20/2014 5:38 AM CDT Has been sleeping fairly well. SBP continues to run in 80's at times dropping into 70's. Denies anydiscomfort or lightheadedness. Resp. easy at 16-20. Lungs CTA. Have called and updated twice during noc with low bps and given 2 fluid bolus' of 500ml, with improvement of sBP up into upper 80's. Rhythm has been sr with occac. pvc and pjc's and having some sinus pauses up to 1.4sec. Will continue to monitor and observe. Electronically Signed By: ALISHA WALTON RN On: 10/20/2014 05:42 AM Source: [employer] Document Id: [id number] Alisha Walton R.N. - 10/20/2014 3:56 AM CDT Cardiac Monitoring Cardiac Monitoring Entered On: 10/20/2014 5:30 CDT Performed On: 10/20/2014 3:56 CDT by ALISHA WALTON RN Cardiac Monitoring Monitoring Lead : II Atrial Rate : 78 bpm Atrial Rhythm : Regular Ventricular Rate : 78 bpm Ventricular Rhythm : Regular VA Interval : 0.20 QRS Duration : 0.08 second(s) QT Interval : 0.39 second(s) VA Consistency : Consistent QRS Consistency : Consistent ST Segment : Isoelectric Ectopy Frequency : Rare (1-3/min) Cardiac Rhythm Tech : Sinus rhythm ALISHA WALTON RN - 10/20/2014 5:29 CDT Source: [employer] Document Id: [id number] CDT!15 documented in this encounter Miscellaneous Notes Miscellaneous - Conversion, Historical Provider Ser - 10/24/2014 8:20 AM CDT Coding Summary-Paper Based CODING DATE: 11/01/2014 FINAL [facility] STATUS: Disch/Trans w/in [facility] Medicare Swing Bed PAYOR: Medicare Grouper: 872 MS-DRG Septicemia or severe sepsis w/o MV 96+ hours w/o [facility] [place] ADMIT DX: 780.60 Fever, Unspecified REASON FOR VISIT DX: FINAL DX: PRINCIPAL: 038.9 Y Unspecified Septicemia SECONDARY: 276.0 N Hyperosmolality and/or Hypernatremia 585.4 Y Chronic Kidney Disease, Stage IV (Severe) 584.9 Y Acute Kidney Failure, Unspecified 599.0 Y Urinary Tract Infection, Site Not Specified 722.71 Y Intervertebral Disc Disorder with Myelopathy, Cervical Region 722.73 Y Intervertebral Disc Disorder with Myelopathy, Lumbar Region 995.91 Y Sepsis V49.86 Y Do Not Resuscitate Status 458.9 Y Hypotension, Unspecified 427.31 Y Atrial Fibrillation 273.8 N 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 Y First Degree Atrioventricular Block 280.9 Y Iron Deficiency Anemia, Unspecified 787.91 N Diarrhea 403.90 Y Hypertensive Chronic Kidney Disease, Unspecified, with Chronic Kidney Disease Stage I Through Stage IV, or Unspecified 440.0 Y Atherosclerosis of Aorta 459.81 Y Venous (Peripheral) Insufficiency, Unspecified 296.90 Y 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 However, the narrative phrase printed from the coding software may appear abbreviated, or result in slightly different terminology. Coded By: MAXWELL DICK Date Saved: 11/01/2014 08:24 am Source: [employer] Document Id: [id number] Miscellaneous - Dave Mercado RXeniaNXenia - 10/24/2014 12:07 AM CDT Adult Ongoing Assessment Document Has Been Updated Adult Ongoing Assessment Entered On: 10/24/2014 1:47 CDT Performed On: 10/24/2014 0:07 CDT by DAVE MERCADO RN Respiratory Respiratory Patient Stated Symptoms : None Respirations : Unlabored Respiratory Pattern : Regular All Lobes Breath Sounds : Clear Cough : Occasional Sputum Amount : None Suction : None Airway : Patent DAVE MERCADO RN - 10/24/2014 0:57 CDT Cardiovascular CV Patient Stated Symptoms : None Heart Rhythm : Regular Heart Sounds ICU : S1S2 Antiembolism Device Yes/No : No Nail Bed Color : [place] Capillary Refill : Less than 2 seconds Edema Assessment : No Monitored Rhythm : Yes Pacer : No DAVE MERCADO RN - 10/24/2014 0:57 CDT Cardiac Rhythm Techs Monitoring Lead : II, V1/MCL1 Atrial Rate : 80 bpm Atrial Rhythm : Regular Ventricular Rate : 80 bpm Ventricular Rhythm : Regular VA Interval : 0.17 P to QRS Ratio : 1:1 QRS Duration : 0.09 second(s) QT Interval : 0.38 second(s) VA Consistency : Consistent QRS Consistency : Consistent ST Segment : Isoelectric Ectopy Frequency : None Cardiac Rhythm : Sinus rhythm DAVE MERCADO RN - 10/24/2014 1:56 CDT Neurological Neuro Patient Stated Symptoms : None Orientation : Oriented x 3 Level of Consciousness : Alert Gait : Steady Last Well Time Known : Not applicable DAVE MERCADO RN - 10/24/2014 1:56 CDT Psycho/Emotional Affect/Behavior : Calm, Cooperative, Appropriate Pain Symptoms : No DAVE MERCADO RN - 10/24/2014 1:56 CDT Coping Grid Identifies effective strategies : Yes Uses effective strategies : Yes Reports increase in psychological comfort : Yes Indicates sense of control : Yes Stressors perceived within control : Yes Stable mood with appropriate affect : Yes Behaviors indicate use of coping mechanism : Yes Family supportive and involved in care : Yes Values/Beliefs incorporated appropriately : Yes DAVE MERCADO RN - 10/24/2014 1:56 CDT Safety Grid Vision, Hearing, Mobility Adequate to Meet Safety Needs : Yes (Comment: [place], wears hearing aides [DAVE MERCADO 10/24/2014 1:56 CDT] ) DAVE MERCADO 10/24/2014 1:56 CDT Gastrointestinal Stool Color : Green Stool Description : Loose Stool Amount : Moderate GI Patient Stated Symptoms : Other: loose stools DAVE MERCADO RN 10/24/2014 2:48 CDT Abdomen Description : Symmetric Abdomen Palpation : Non-Tender, Soft DAVE MERCADO 10/24/2014 1:56 CDT Bowel Movement Last Date : 10/24/2014 CDT DAVE MERCADO 10/24/2014 2:48 CDT Bowel Sounds All Quadrants : Present DAVE MERCADO RN 10/24/2014 1:56 CDT Genitourinary Patient Stated Symptoms : None Urinary Elimination : Voiding, no difficulties Urine Color : Yellow Urine Description : Clear DAVE MERCADO 10/24/2014 1:56 CDT Integumentary Integumentary Patient Stated Symptoms : Bruising Skin Turgor : Elastic Skin Integrity : Intact DAVE MERCADO Jaspreet 10/24/2014 1:56 CDT Skin Abnormality/Location Grid Location : Abdomen Hand Lower arm Laterality : Left, Right Left, Right Right Abnormality : Bruising Bruising Bruising DAVE MERCADO Jaspreet 10/24/2014 1:56 CDT DAVE MERCADO Jaspreet 10/24/2014 1:56 CDT DAVE MERCADO 10/24/2014 1:56 CDT Lens Grinder Integumentary - Grid Lens Grinder : Electrode Assessment/Action : Not removed Skin Appearance : Normal DAVE MERCADO 10/24/2014 1:56 CDT Skin Color : Normal for ethnicity Skin Description : Normal Skin Temperature : Warm DAVE MERCADO 10/24/2014 1:56 CDT Shawn Sensory Perception Shawn : No impairment Moisture Shawn : Rarely moist Activity Shawn : Walks frequently Mobility Shawn : No limitations Nutrition Shawn : Adequate Friction and Shear Shawn : No apparent problem Shawn Score : 22 DAVE MERCADO 10/24/2014 1:56 CDT Musculoskeletal Musculoskeletal Patient Stated Symptoms : None Activity Tolerance : Without distress DAVE MERCADO 10/24/2014 1:56 CDT Peripheral IV Peripheral IV Assess/Intervention Grid Peripheral IV #1 Peripheral IV #2 Peripheral IV #3 IV Activity : Discontinue Discontinue Assessment Number of Attempts : 1 5 Date of Insertion : 10/19/2014 CDT 10/20/2014 CDT 10/21/2014 CDT IV Site : Antecubital Forearm Hand Laterality : Left Left Right Catheter Size : 18 20 20 Catheter Type : Over the needle Over the needle Over the needle Site Condition : No complications Drainage Description : Bloody Primary Tubing Changed : 10/21/2014 CDT Secondary Tubing Changed : 10/21/2014 CDT 10/22/2014 CDT Dressing/ Activity : Drainage present, Changed Flow/ Patency : No complications DAVE MERCADO RN - 10/24/2014 1:56 CDT DAVE MERCADO RN - 10/24/2014 1:56 CDT DAVE MERCADO RN - 10/24/2014 1:56 CDT Hendrich II Fall Risk Confusion/Disorientation Hendrich : No Depression Fall Risk Hendrich : No Altered Elimination Fall Risk Hendrich : No Dizziness/Vertigo Fall Risk Hendrich : No Gender, Male Fall Risk Hendrich : No Prescribed Antiepileptics Hendrich : No Prescribed Benzodiazepines Hendrich : No Rising From Chair Fall Risk Hendrich : Pushes up, successful in one attempt Fall Risk Score Hendrich II : 1 DAVE MRECADO RN - 10/24/2014 1:56 CDT Safe Patient Handling Safe Pt Handling Independent : Yes - No equipment needed Safe Pt Handling Equipment Rec : No Equipment Needed Repositioning Device Recommended : No DAVE MERCADO RN - 10/24/2014 1:56 CDT Education General Patient Education [employer] Topics : Disease process, Medication dosage, route, scheduling, Medication generic/brand names, purpose, action, Plan of care, Safety, fall, Unit procedures Individuals Taught : Patient Barriers to Learning : None evident Teaching Method : Demonstration, Explanation Teaching Evaluation : Able to teach back, Verbalizes understanding DAVE MERCADO RN - 10/24/2014 1:56 CDT Source: [facility] Document Id: [id number] CDT!7 Miscellaneous - Dave Mercado R.NXenia - 10/23/2014 10:04 PM CDT Adult Activities of Daily Living Adult Activities of Daily Living Entered On: 10/23/2014 22:05 CDT Performed On: 10/23/2014 22:04 CDT by DAVE MERCADO RN ADLs II Hygiene Assistance Grid Back Rub : Maximum assistance Hair Care : Minimum assistance Oral Care : Minimum assistance Catrina Care : Minimum assistance DAVE MERCADO RN - 10/23/2014 22:04 CDT Elimination Assistance Offered Q2H : Independent Bowel Movement Last Date : 10/23/2014 CDT Standard Safety : Bed in low position, Call device within reach, ID band check, Night light, Rounds every 1 hour, Upper/Half-length side-rails up, Wheels locked DAVE MERCADO RN - 10/23/2014 22:04 CDT Source: [employer] Document Id: [id number] CDT!10 Miscellaneous - Dave Mercado R.N. - 10/23/2014 9:59 PM CDT Adult Ongoing Assessment Adult Ongoing Assessment Entered On: 10/23/2014 22:02 CDT Performed On: 10/23/2014 21:59 CDT by DAVE MERCADO RN Respiratory Cough : Occasional (Comment: Pt states it feels as though there is mucus in her throat which she is unable to get up. [DAVE MERCADO RN - 10/23/2014 21:59 CDT] ) DAVE MERCADO RN - 10/23/2014 21:59 CDT Cardiovascular Antiembolism Device Yes/No : No DAVE MERCADO RN - 10/23/2014 21:59 CDT Psycho/Emotional Pain Symptoms : No DAVE MERCADO RN - 10/23/2014 21:59 CDT Peripheral IV Peripheral IV Assess/Intervention Grid Peripheral IV #1 Peripheral IV #2 Peripheral IV #3 IV Activity : Discontinue Discontinue Assessment Number of Attempts : 1 5 Date of Insertion : 10/19/2014 CDT 10/20/2014 CDT 10/21/2014 CDT IV Site : Antecubital Forearm Hand Laterality : Left Left Right Catheter Size : 18 20 20 Catheter Type : Over the needle Over the needle Over the needle Site Condition : No complications Infiltration Score : 0 Phlebitis Score : 0 Primary Tubing Changed : 10/21/2014 CDT Secondary Tubing Changed : 10/21/2014 CDT 10/22/2014 CDT Flow/ Patency : Does not aspirate DAVE MERCADO RN - 10/23/2014 21:59 CDT DAVE MERCADO RN - 10/23/2014 21:59 CDT DAVE MERCADO RN - 10/23/2014 21:59 CDT Source: [facility] [employer] Document Id: [id number] CDT!39 Miscellaneous - Gume Cooley RAbimbola - 10/23/2014 4:47 PM CDT Adult Ongoing Assessment Adult Ongoing Assessment Entered On: 10/23/2014 17:10 CDT Performed On: 10/23/2014 16:47 CDT by GUME COOLEY RN Respiratory Respiratory Patient Stated Symptoms : None Respirations : Unlabored Respiratory Pattern : Regular All Lobes Breath Sounds : Clear Cough and Deep Breathe : Done Cough : None Sputum Amount : None Suction : None Airway : Patent GUME COOLEY RN - 10/23/2014 16:47 CDT Cardiovascular CV Patient Stated Symptoms : Fatigue Heart Rhythm : Regular Heart Sounds ICU : S1S2 Antiembolism Device Yes/No : No Nail Bed Color : [place] Capillary Refill : Less than 2 seconds Edema Assessment : No Pacer : No GUME COOLEY RN - 10/23/2014 16:47 CDT Radial Pulse, Left : 2+ Normal Radial Pulse, Right : 2+ Normal Brachial Pulse, Left : 2+ Normal Brachial Pulse, Right : 2+ Normal Popliteal Pulse, Left : 2+ Normal Popliteal Pulse, Right : 2+ Normal Posttibial Pulse, Left : 2+ Normal Posttibial Pulse, Right : 2+ Normal Dorsalis Pedis Pulse, Left : 2+ Normal Dorsalis Pedis Pulse, Right : 2+ Normal GUME COOLEY RN - 10/23/2014 16:47 CDT Skin Color : Normal for ethnicity Skin Description : Dry Skin Temperature : Warm Activity Tolerance : Without distress GUME COOLEY DEONNA - 10/23/2014 16:47 CDT Neurological Neuro Patient Stated Symptoms : None Orientation : Oriented x 3 Level of Consciousness : Alert Gait : Steady Swallowing Difficulty/Aspiration Risk : None Last Well Time Known : Not applicable GUME COOLEY DEONNA - 10/23/2014 16:47 CDT Marine Coma Eye Opening Response Marine : Spontaneously Best Verbal Response Crockett : Oriented Best Motor Response Marine : Obeys simple commands Marine Coma Score : 15 GUME COOLEY DEONNA - 10/23/2014 16:47 CDT Oral Exam - Swing Bed Teeth and supporting structure for : No abnormality Oral Cavity Tissue for : No abnormality Gums for : No abnormality Are there any swollen lymph nodes in neck : No GUME COOLEY DEONNA - 10/23/2014 16:47 CDT Oral Assessment Lips : Smooth, pink, moist, intact Gingiva : [place], smooth, moist, intact Tongue : Smooth, pink, moist, intact Teeth : Clean, no debris Saliva : Thin, watery, plentiful GUME COOLEY - 10/23/2014 16:47 CDT Psycho/Emotional Affect/Behavior : Calm Pain Symptoms : No Feels Rested : Yes GUME COOLEY DEONNA - 10/23/2014 16:47 CDT Coping Grid Identifies effective strategies : Yes Uses effective strategies : Yes Reports increase in psychological comfort : Yes Indicates sense of control : Yes Stressors perceived within control : Yes Stable mood with appropriate affect : Yes Behaviors indicate use of coping mechanism : Yes Family supportive and involved in care : Yes Values/Beliefs incorporated appropriately : Yes GUME COOLEY DEONNA - 10/23/2014 16:47 CDT Safety Grid Vision, Hearing, Mobility Adequate to Meet Safety Needs : Yes GUME COOLEY DEONNA - 10/23/2014 16:47 CDT Gastrointestinal GI Patient Stated Symptoms : Diarrhea Abdomen Description : Symmetric Abdomen Palpation : Non-Tender, Soft Bowel Movement Last Date : 10/23/2014 CDT Bowel Sounds All Quadrants : Present Stool Color : Green Stool Description : Semi-Formed Stool Amount : Small Passing Flatus : Yes ALFONZO ECHAVARRIAMOEREBAEdilmaGUME DEONNA - 10/23/2014 16:47 CDT Nutrition Home Diet : Regular Appetite : Good Eating Difficulties : None, Appetite change Feeding Ability : Complete independence Adaptive Feeding Equipment : Built-Up utensils GUME COOLEY - 10/23/2014 16:47 CDT Genitourinary Patient Stated Symptoms : None Urinary Elimination : Voiding, no difficulties Urine Color : Yellow Urine Description : Clear Urine Odor : Odorless Bladder Distention : Absent GUME COOLEY DEONNA - 10/23/2014 16:47 CDT Integumentary Integumentary Patient Stated Symptoms : Bruising Skin Turgor : Elastic Skin Integrity : Not intact Mucous Membrane Color : [place] Mucous Membrane Description : Moist GUME COOLEY - 10/23/2014 16:47 CDT Skin Abnormality/Location Grid Location : Abdomen Hand Laterality : Left, Right Left, Right Abnormality : Bruising Bruising GUME COOLEY - 10/23/2014 16:47 CDT ALFONZO ACHARYAEdilmaGUME - 10/23/2014 16:47 CDT Lens Grinder Integumentary - Grid Lens Grinder : Electrode Assessment/Action : Removed and reapplied Skin Appearance : Normal GUME COOLEY - 10/23/2014 16:47 CDT Skin Color : Normal for ethnicity Skin Description : Dry Skin Temperature : Warm GUME COOLEY - 10/23/2014 16:47 CDT Shawn Sensory Perception Shawn : No impairment Moisture Shawn : Rarely moist Activity Shawn : Walks frequently Mobility Shawn : No limitations Nutrition Shawn : Adequate Friction and Shear Shawn : No apparent problem Shawn Score : 22 ALFONZO ACHARYAEdilmaGUME Tanya - 10/23/2014 16:47 CDT Musculoskeletal Musculoskeletal Patient Stated Symptoms : None Activity Tolerance : Without distress GUME COOLEY - 10/23/2014 16:47 CDT Peripheral IV Peripheral IV Assess/Intervention Grid Peripheral IV #1 Peripheral IV #2 Peripheral IV #3 IV Activity : Discontinue Discontinue Assessment Number of Attempts : 1 5 Date of Insertion : 10/19/2014 CDT 10/20/2014 CDT 10/21/2014 CDT IV Site : Antecubital Forearm Hand Laterality : Left Left Right Catheter Size : 18 20 20 Catheter Type : Over the needle Over the needle Over the needle Site Condition : No complications Drainage Description : None Primary Tubing Changed : 10/21/2014 CDT Secondary Tubing Changed : 10/21/2014 CDT 10/22/2014 CDT Dressing/ Activity : Intact, Transparent, Changed Flow/ Patency : No complications IV Equipment/Supplies : Regular GUME COOLEY RN - 10/23/2014 16:47 CDT GUME COOLEY RN - 10/23/2014 16:47 CDTCHGUME ANDREW RN - 10/23/2014 16:47 CDT Hendrich II Fall Risk Confusion/Disorientation Hendrich : No Depression Fall Risk Hendrich : No Altered Elimination Fall Risk Hendrich : No Dizziness/Vertigo Fall Risk Hendrich : No Gender, Male Fall Risk Hendrich : No Prescribed Antiepileptics Hendrich : No Prescribed Benzodiazepines Hendrich : No Rising From Chair Fall Risk Hendrich : Able to rise in a single movement, no loss of balance with steps Fall Risk Score Hendrich II : 0 GUME COOLEY RN - 10/23/2014 16:47 CDT Safe Patient Handling Safe Pt Handling Independent : Yes - No equipment needed Safe Pt Handling Equipment Rec : No Equipment Needed Repositioning Device Recommended : No GUME COOLEY RN - 10/23/2014 16:47 CDT Education General Patient Education Powergrid Topics : Medication dosage, route, scheduling, Plan of care, Safety, fall, Treatments/Procedures/Tests, Use of pain scale(s) Individuals Taught : Patient, Daughter, Family member Barriers to Learning : Hearing deficit Teaching Method : Explanation, Printed materials Teaching Evaluation : Able to teach back, Verbalizes understanding Education Referral Made To : Dietitian GUME COOLEY RN - 10/23/2014 16:47 CDT Source: [facility]CHART Document Id: [id number] CDT!187 Miscellaneous - Nabeel Garces - 10/23/2014 1:34 PM CDT Adult Activities of Daily Living Adult Activities of Daily Living Entered On: 10/23/2014 13:35 CDT Performed On: 10/23/2014 13:34 CDT by NABEEL GARCES ADLs II Hygiene Assistance Grid Shower : Minimum assistance NABEEL GARCES - 10/23/2014 13:34 CDT Bowel Movement Last Date : 10/22/2014 CDT Standard Safety : Call device within reach, Gait belt, Non-Slip footwear, Rounds every 1 hour, Upper/Half-length side-rails up NABEEL GARCES - 10/23/2014 13:34 CDT [facility] Document Id: [id number] CDT!6 Miscellaneous - Gume Cooley, R.N. - 10/23/2014 12:38 PM CDT Adult Activities of Daily Living Document Has Been Updated Adult Activities of Daily Living Entered On: 10/23/2014 12:44 CDT Performed On: 10/23/2014 12:38 CDT by GUME COOLEY RN ADLs I Patient Position : Elevate head of bed 30 degrees Activity Status ADL : Ambulating in [place], Ambulating in room Activity Assistance : Stand-by assistance Assistive Device : None Pressure Reducing Device For Bed : Alternating air Antiembolism Device : Other: ON HEPARIN S/Q Range of Motion LUE : Active Range of Motion RUE : Active Range of Motion LLE : Active Range of Motion RLE : Active GUME COOLEY RN - 10/23/2014 12:38 CDT ADLs II Hygiene Assistance Grid Back Rub : Minimum assistance Foot Care : Minimum assistance Hair Care : Independent Oral Care : Independent Catrina Care : Independent Shower : Minimum assistance Upper Body Dressing(Clothing) : Minimum assistance Lower Body Dressing(Clothing) : Minimum assistance GUME COOLEY RN - 10/23/2014 12:38 CDT Bowel Movement Last Date : 10/22/2014 CDT Standard Safety : Bed in low position, Call device within reach, Gait belt, ID band check, Non-Slip footwear, Rounds every 1 hour, Toilet every 2 hours, Upper/Half-length side-rails up, Wheels locked GUME COOLEY RN - 10/23/2014 12:38 CDT I&O Urine Voided : 350 mL GUME COOLEY RN - 10/23/2014 12:38 CDT GUME COOLEY RN - 10/23/2014 18:23 CDT Source: [facility] [employer] Document Id: [id number] CDT!3 Krystyna Warner - 10/23/2014 10:14 AM CDT Team Meeting Notes Team Meeting Notes Entered On: 10/23/2014 10:14 CDT Performed On: 10/23/2014 10:14 CDT by KRYSTYNA GROSS Team Notes Team Meeting Grid Discipline : Heel Edge Inker Machine, Canine Service Teacher, Family, Nurse, Patient, Physical Therapist, Size Worker Topics : Medication, Plan of care Goal of the Day : Pt will likely switch to TCU today for ongoing IV antibiotics. KRYSTYNA GROSS - 10/23/2014 10:14 CDT Source: [facility] [employer] Document Id: [id number] CDT!7 Jarod - Gume Cooley RXeniaNXenia - 10/23/2014 8:44 AM CDT Adult Ongoing Assessment Adult Ongoing Assessment Entered On: 10/23/2014 12:54 CDT Performed On: 10/23/2014 8:44 CDT by GUME COOLEY RN Respiratory Respiratory Patient Stated Symptoms : None Respirations : Unlabored Respiratory Pattern : Regular All Lobes Breath Sounds : Clear Cough and Deep Breathe : Done Cough : None Sputum Amount : None Suction : None Airway : Patent GUME COOLEY RN - 10/23/2014 12:44 CDT Cardiovascular CV Patient Stated Symptoms : None Heart Rhythm : Regular Heart Sounds ICU : S1S2 Antiembolism Device Yes/No : No Nail Bed Color : [place] Capillary Refill : Less than 2 seconds Edema Assessment : No Pacer : No ALFONZO JONA JHONATANBrigitte Martínez RN - 10/23/2014 12:44 CDT Radial Pulse, Left : 2+ Normal Radial Pulse, Right : 2+ Normal Brachial Pulse, Left : 2+ Normal Brachial Pulse, Right : 2+ Normal Popliteal Pulse, Left : 2+ Normal Popliteal Pulse, Right : 2+ Normal Posttibial Pulse, Left : 2+ Normal Posttibial Pulse, Right : 2+ Normal Dorsalis Pedis Pulse, Left : 2+ Normal Dorsalis Pedis Pulse, Right : 2+ Normal ALFONZO ELISEOREBAEdilma GUME Tanya YING - 10/23/2014 12:44 CDT Skin Color : Normal for ethnicity Skin Description : Dry Skin Temperature : Warm Activity Tolerance : Without distress ALFONZO JONA JHONATANBrigitte Martínez RN - 10/23/2014 12:44 CDT Neurological Neuro Patient Stated Symptoms : None Orientation : Oriented x 3 Level of Consciousness : Alert Gait : Steady Swallowing Difficulty/Aspiration Risk : None Last Well Time Known : Not applicable ALFONZO ELISEOREBAEdilma GUME Tanya - 10/23/2014 12:44 CDT Marine Coma Eye Opening Response Marine : Spontaneously Best Verbal Response Crockett : Oriented Best Motor Response Crockett : Obeys simple commands Marine Coma Score : 15 ALFONZO ACHARYAEdilmaGUME Tanya - 10/23/2014 12:44 CDT Oral Exam - Swing Bed Teeth and supporting structure for : No abnormality Oral Cavity Tissue for : No abnormality Gums for : No abnormality Are there any swollen lymph nodes in neck : No ALFONZO TENORIO JHONATANBrigitte Martínez RN - 10/23/2014 12:44 CDT Oral Assessment Lips : Smooth, pink, moist, intact Gingiva : [place], smooth, moist, intact Tongue : Smooth, pink, moist, intact Saliva : Thin, watery, plentiful ALFONZO TENORIO JHONATANBrigitte Martínez RN - 10/23/2014 12:44 CDT Psycho/Emotional Affect/Behavior : Calm, Cooperative, Appropriate Pain Symptoms : No Feels Rested : Yes GUME COOLEY RN - 10/23/2014 12:44 CDT Coping Grid Identifies effective strategies : Yes Uses effective strategies : Yes Reports increase in psychological comfort : Yes Indicates sense of control : Yes Stressors perceived within control : Yes Stable mood with appropriate affect : Yes Behaviors indicate use of coping mechanism : Yes Family supportive and involved in care : Yes Values/Beliefs incorporated appropriately : Yes GUME COOLEY RN - 10/23/2014 12:44 CDT Safety Grid Vision, Hearing, Mobility Adequate to Meet Safety Needs : Yes GUME COOLEY RN - 10/23/2014 12:44 CDT Gastrointestinal GI Patient Stated Symptoms : Diarrhea, Other: GREENISH SEMI SOFT STOOLS Abdomen Description : Symmetric Abdomen Palpation : Non-Tender, Soft Bowel Movement Last Date : 10/23/2014 CDT Bowel Sounds All Quadrants : Present Stool Color : Green Stool Description : Semi-Formed Stool Amount : Small Passing Flatus : Yes GUME COOLEY RN - 10/23/2014 12:44 CDT Nutrition Home Diet : Regular Appetite : Good Eating Difficulties : None Feeding Ability : Complete independence Adaptive Feeding Equipment : Built-Up utensils GUME COOLEY RN - 10/23/2014 12:44 CDT Genitourinary Patient Stated Symptoms : None Urinary Elimination : Voiding, no difficulties Urine Color : Yellow Urine Description : Clear Urine Odor : Odorless Bladder Distention : Absent GUME COOLEY RN - 10/23/2014 12:44 CDT Integumentary Integumentary Patient Stated Symptoms : Bruising, Fragile skin Skin Turgor : Elastic Skin Integrity : Intact Mucous Membrane Color : [place] Mucous Membrane Description : Moist GUME COOLEY RN - 10/23/2014 12:44 CDT Skin Abnormality/Location Grid Location : Abdomen Hand Laterality : Left, Right Left, Right Abnormality : Bruising Bruising GUME COOLEY RN - 10/23/2014 12:44 CDT GUME COOLEY RN - 10/23/2014 12:44 CDT Lens Grinder Integumentary - Grid Lens Grinder : Electrode GUME COOLEY RN - 10/23/2014 12:44 CDT Skin Color : Normal for ethnicity Skin Description : Dry Skin Temperature : Warm GUME COOLEY RN - 10/23/2014 12:44 CDT Shawn Sensory Perception Shawn : No impairment Moisture Shawn : Rarely moist Activity Shawn : Walks frequently Mobility Shawn : No limitations Nutrition Shawn : Adequate Friction and Shear Shawn : No apparent problem Shawn Score : 22 GUME COOLEY RN - 10/23/2014 12:44 CDT Musculoskeletal Musculoskeletal Patient Stated Symptoms : None Activity Tolerance : Without distress GUME COOLEY RN - 10/23/2014 12:44 CDT Peripheral IV Peripheral IV Assess/Intervention Grid Peripheral IV #1 Peripheral IV #2 Peripheral IV #3 IV Activity : Discontinue Discontinue Assessment Number of Attempts : 1 5 Date of Insertion : 10/19/2014 CDT 10/20/2014 CDT 10/21/2014 CDT IV Site : Antecubital Forearm Hand Laterality : Left Left Right Catheter Size : 18 20 20 Catheter Type : Over the needle Over the needle Over the needle Site Condition : No complications Drainage Description : None Primary Tubing Changed : 10/21/2014 CDT Secondary Tubing Changed : 10/21/2014 CDT 10/22/2014 CDT GUME COOLEY RN - 10/23/2014 12:44 CDT GUME COOLEY RN - 10/23/2014 12:44 CDTCHGUME ANDREW RN - 10/23/2014 12:44 CDT Hendrich II Fall Risk Confusion/Disorientation Hendrich : No Depression Fall Risk Hendrich : No Altered Elimination Fall Risk Hendrich : No Dizziness/Vertigo Fall Risk Hendrich : No Gender, Male Fall Risk Hendrich : No Prescribed Antiepileptics Hendrich : No Prescribed Benzodiazepines Hendrich : No Rising From Chair Fall Risk Hendrich : Able to rise in a single movement, no loss of balance with steps Fall Risk Score Hendrich II : 0 GUME COOLEY RN - 10/23/2014 12:44 CDT Safe Patient Handling Safe Pt Handling Independent : Yes - No equipment needed Safe Pt Handling Equipment Rec : No Equipment Needed GUME COOLEY RN - 10/23/2014 12:44 CDT Education General Patient Education Powergrid Topics : Medication dosage, route, scheduling, Nutrition/Diet, Pain Management, Plan of care, Safety, fall, Treatments/Procedures/Tests, Turn/Cough/Deep breathing, Unit procedures, Use of pain scale(s) Individuals Taught : Patient, Daughter, Son Barriers to Learning : Hearing deficit Teaching Method : Explanation, Printed materials Teaching Evaluation : Able to teach back, Verbalizes understanding GUME COOLEY RN - 10/23/2014 12:44 CDT Source: [facility] [employer] Document Id: [id number] CDT!179 Miscellaneous - Conversion, Historical Provider Ser - 10/22/2014 11:40 PM CDT Adult Ongoing Assessment Adult Ongoing Assessment Entered On: 10/22/2014 23:41 CDT Performed On: 10/22/2014 23:40 CDT by MIR SALINAS RN Respiratory Respiratory Patient Stated Symptoms : None Respirations : Unlabored Respiratory Pattern : Regular All Lobes Breath Sounds : Clear MIR SALINAS RN - 10/22/2014 23:40 CDT Cardiovascular CV Patient Stated Symptoms : None Heart Rhythm : Regular Heart Sounds ICU : S1S2 Antiembolism Device Yes/No : No Nail Bed Color : [place] Capillary Refill : Less than 2 seconds Edema Assessment : No Monitored Rhythm : Yes MIR SALINAS RN - 10/22/2014 23:40 CDT Radial Pulse, Left : 2+ Normal Radial Pulse, Right : 2+ Normal Posttibial Pulse, Left : 2+ Normal Posttibial Pulse, Right : 2+ Normal Dorsalis Pedis Pulse, Left : 2+ Normal Dorsalis Pedis Pulse, Right : 2+ Normal MIR SALINAS RN - 10/22/2014 23:40 CDT Skin Color : [place] Skin Description : Normal Skin Temperature : Warm Activity Tolerance : Without distress MIR SALINAS RN - 10/22/2014 23:40 CDT Neurological Orientation : Oriented x 3 Level of Consciousness : Alert Gait : Steady Last Well Time Known : Not applicable MIR SALINAS RN - 10/22/2014 23:44 CDT Marine Coma Eye Opening Response Marine : Spontaneously Best Verbal Response Crockett : Oriented Best Motor Response Crockett : Obeys simple commands Marine Coma Score : 15 MIR SALINAS RN - 10/22/2014 23:44 CDT Oral Assessment Lips : Smooth, pink, moist, intact Gingiva : [place], smooth, moist, intact Tongue : Smooth, pink, moist, intact Teeth : Clean, no debris MIR SALINAS RN - 10/22/2014 23:44 CDT Psycho/Emotional Affect/Behavior : Calm Pain Symptoms : No MIR SALINAS RN - 10/22/2014 23:44 CDT Coping Grid Identifies effective strategies : Yes Uses effective strategies : Yes Reports increase in psychological comfort : Yes Indicates sense of control : Yes Stressors perceived within control : Yes Stable mood with appropriate affect : Yes Behaviors indicate use of coping mechanism : Yes Family supportive and involved in care : Yes Values/Beliefs incorporated appropriately : Yes MIR SALINAS RN - 10/22/2014 23:44 CDT Safety Grid Vision, Hearing, Mobility Adequate to Meet Safety Needs : Yes MIR SALINAS RN - 10/22/2014 23:44 CDT Gastrointestinal Abdomen Description : Rounded Abdomen Palpation : Non-Tender, Soft Bowel Movement Last Date : 10/22/2014 CDT Bowel Sounds All Quadrants : Present Stool Color : Brown Stool Description : Seedy Stool Amount : Small Passing Flatus : Yes MIR SALINAS RN - 10/22/2014 23:44 CDT Genitourinary Urinary Elimination : Voiding, no difficulties Urine Color : [place] Urine Description : Clear MIR SALINAS RN - 10/22/2014 23:44 CDT Integumentary Integumentary Patient Stated Symptoms : Bruising Skin Turgor : Elastic Skin Integrity : Intact Mucous Membrane Color : [place] Mucous Membrane Description : Moist MIR SALINAS RN - 10/22/2014 23:44 CDT Lens Grinder Integumentary - Grid Lens Grinder : Electrode Assessment/Action : Not removed Skin Appearance : Normal MIR SALINAS RN - 10/22/2014 23:44 CDT Skin Color : [place] Skin Description : Normal Skin Temperature : Warm MIR SALINAS RN - 10/22/2014 23:44 CDT Shawn Sensory Perception Shawn : No impairment Moisture Shawn : Rarely moist Activity Shawn : Walks frequently Mobility Shawn : No limitations Nutrition Shawn : Adequate Friction and Shear Shawn : No apparent problem Shawn Score : 22 MIR SALINAS RN - 10/22/2014 23:44 CDT Peripheral IV Peripheral IV Assess/Intervention Grid Peripheral IV #1 Peripheral IV #2 Peripheral IV #3 IV Activity : Discontinue Discontinue Assessment Number of Attempts : 1 5 Date of Insertion : 10/19/2014 CDT 10/20/2014 CDT 10/21/2014 CDT IV Site : Antecubital Forearm Hand Laterality : Left Left Right Catheter Size : 18 20 20 Catheter Type : Over the needle Over the needle Over the needle Drainage Description : None Secondary Tubing Changed : 10/21/2014 CDT 10/22/2014 CDT Dressing/ Activity : Dry, Transparent Flow/ Patency : No complications IV Equipment/Supplies : Pump tubing, Pump, infusion, Secondary set MIR SALINAS RN - 10/22/2014 23:44 CDT MIR SALINAS RN - 10/22/2014 23:44 CDT MIR SALINAS - 10/22/2014 23:44 CDT Hendrich II Fall Risk Confusion/Disorientation Hendrich : No Depression Fall Risk Hendrich : No Altered Elimination Fall Risk Hendrich : No Dizziness/Vertigo Fall Risk Hendrich : No Gender, Male Fall Risk Hendrich : No Prescribed Antiepileptics Hendrich : No Prescribed Benzodiazepines Hendrich : No Rising From Chair Fall Risk Hendrich : Able to rise in a single movement, no loss of balance with steps Fall Risk Score Hendrich II : 0 MIR SALINAS RN - 10/22/2014 23:44 CDT Safe Patient Handling Safe Pt Handling Independent : Yes - No equipment needed Safe Pt Handling Equipment Rec : No Equipment Needed MIR SALINAS RN - 10/22/2014 23:44 CDT Education General Patient Education Powergrid Topics : Activity limitations/expectations, Disease process, Medication dosage, route, scheduling, Plan of care, Safety, fall, Treatments/Procedures/Tests Individuals Taught : Patient Barriers to Learning : None evident Teaching Method : Explanation Teaching Evaluation : Needs reinforcement MIR SALINAS RN - 10/22/2014 23:44 CDT Source: [facility] Document Id: [id number] CDT!118 Miscellaneous - Conversion, Historical Provider Ser - 10/22/2014 11:39 PM CDT Adult Activities of Daily Living Adult Activities of Daily Living Entered On: 10/22/2014 23:40 CDT Performed On: 10/22/2014 23:39 CDT by MIR SALINAS RN ADLs I Patient Position : Sitting in bed Activity Status ADL : Ambulating in [place], Bathroom privileges Activity Assistance : Stand-by assistance Assistive Device : None MIR SALINAS RN - 10/22/2014 23:39 CDT ADLs II Hygiene Assistance Grid Oral Care : Minimum assistance MIR SALINAS RN - 10/22/2014 23:39 CDT Elimination Assistance Offered Q2H : Independent Bowel Movement Last Date : 10/22/2014 CDT Standard Safety : Bed in low position, Call device within reach, ID band check, Non-Slip footwear, Rounds every 1 hour, Upper/Half-length side-rails up, Wheels locked MIR SALINAS RN - 10/22/2014 23:39 CDT Source: [employer] Document Id: [id number] CDT!12 Miscellaneous - Juan Antonio Beckford, RXeniaNXenia - 10/22/2014 5:42 PM CDT Adult Ongoing Assessment Adult Ongoing Assessment Entered On: 10/22/2014 17:44 CDT Performed On: 10/22/2014 17:42 CDT by JUAN ANTONIO BECKFORD RN Respiratory Respiratory Patient Stated Symptoms : None Respirations : Unlabored Respiratory Pattern : Regular All Lobes Breath Sounds : Clear Cough : None JUAN ANTONIO BECKFORD RN - 10/22/2014 17:42 CDT Cardiovascular CV Patient Stated Symptoms : None Heart Rhythm : Regular Antiembolism Device Yes/No : Yes Nail Bed Color : [place] Capillary Refill : Less than 2 seconds Edema Assessment : No JUAN ANTONIO BECKFORD RN - 10/22/2014 17:42 CDT Radial Pulse, Left : 2+ Normal Radial Pulse, Right : 2+ Normal Dorsalis Pedis Pulse, Left : 2+ Normal Dorsalis Pedis Pulse, Right : 2+ Normal JUAN ANTONIO BECKFORD RN - 10/22/2014 17:42 CDT Skin Color : Normal for ethnicity Skin Description : Normal Skin Temperature : Warm Activity Tolerance : Without distress JUAN ANTONIO BECKFORD RN - 10/22/2014 17:42 CDT Antiembolism Device Antiembolism Device : Other: heparin JUAN ANTONIO BECKFORD RN - 10/22/2014 17:42 CDT Neurological Neuro Patient Stated Symptoms : None Orientation : Oriented x 3 Level of Consciousness : Alert Last Well Time Known : Not applicable JUAN ANTONIO BECKFORD RN - 10/22/2014 17:42 CDT Crockett Coma Eye Opening Response Marine : Spontaneously Best Verbal Response Marine : Oriented Best Motor Response Marine : Obeys simple commands Crockett Coma Score : 15 JUAN ANTONIO BECKFORD RN - 10/22/2014 17:42 CDT Psycho/Emotional Affect/Behavior : Calm, Cooperative, Appropriate Pain Symptoms : No JUAN ANTONIO BECKFORD RN - 10/22/2014 17:42 CDT Coping Grid Identifies effective strategies : Yes Uses effective strategies : Yes Reports increase in psychological comfort : Yes Indicates sense of control : Yes Stressors perceived within control : Yes Stable mood with appropriate affect : Yes Behaviors indicate use of coping mechanism : Yes Family supportive and involved in care : Yes Values/Beliefs incorporated appropriately : Yes JUAN ANTONIO BECKFORD RN - 10/22/2014 17:42 CDT Safety Grid Vision, Hearing, Mobility Adequate to Meet Safety Needs : Yes JUAN ANTONIO BECKFORD RN - 10/22/2014 17:42 CDT Gastrointestinal GI Patient Stated Symptoms : None Abdomen Description : Rounded, Symmetric Abdomen Palpation : Non-Tender, Soft Bowel Movement Last Date : 10/22/2014 CDT Bowel Sounds All Quadrants : Present Stool Description : Soft, Loose, Seedy Stool Amount : Small Passing Flatus : Yes JUAN NATONIO BECKFORD RN - 10/22/2014 17:42 CDT Nutrition Appetite : Good Eating Difficulties : None Feeding Ability : Complete independence JUAN ANTONIO BECKFORD RN - 10/22/2014 17:42 CDT Genitourinary Patient Stated Symptoms : None Urinary Elimination : Voiding, no difficulties Urine Color : Yellow Urine Description : Clear Bladder Distention : Absent JUAN ANTONIO BECKFORD RN - 10/22/2014 17:42 CDT Integumentary Integumentary Patient Stated Symptoms : None Skin Turgor : Elastic Skin Integrity : Intact Mucous Membrane Color : [place] Mucous Membrane Description : Moist JUAN ANTONIO BECKFORD RN - 10/22/2014 17:42 CDT Lens Grinder Integumentary - Grid Lens Grinder : Electrode JUAN ANTONIO BECKFORD RN - 10/22/2014 17:42 CDT Shawn Sensory Perception Shawn : No impairment Moisture Shawn : Rarely moist Activity Shawn : Walks frequently Mobility Shawn : No limitations Nutrition Shawn : Adequate Friction and Shear Shawn : No apparent problem Shawn Score : 22 JUAN ANTONIO BECKFORD RN - 10/22/2014 17:42 CDT Hendrich II Fall Risk Confusion/Disorientation Hendrich : No Depression Fall Risk Hendrich : No Altered Elimination Fall Risk Hendrich : No Dizziness/Vertigo Fall Risk Hendrich : No Gender, Male Fall Risk Hendrich : No Prescribed Antiepileptics Hendrich : No Prescribed Benzodiazepines Hendrich : No Rising From Chair Fall Risk Hendrich : Able to rise in a single movement, no loss of balance with steps Fall Risk Score Hendrich II : 0 JUAN ANTONIO BECKFORD RN - 10/22/2014 17:42 CDT Safe Patient Handling Safe Pt Handling Independent : Yes - No equipment needed Safe Pt Handling Equipment Rec : No Equipment Needed JUAN ANTONIO BECKFORD RN - 10/22/2014 17:42 CDT Education General Patient Education Powergrid Topics : Activity limitations/expectations, Medication dosage, route, scheduling, Medication generic/brand names, purpose, action, Pain Management, Patient rights and responsibilities, Plan of care, Safety, fall, When to call health care provider Individuals Taught : Patient Barriers to Learning : None evident Teaching Method : Explanation Teaching Evaluation : Able to teach back, Verbalizes understanding JUAN ANTONIO BECKFORD RN - 10/22/2014 17:42 CDT [facility] Document Id: [id number] CDT!107 Miscellaneous - Juan Antonio Beckford RXeniaN. - 10/22/2014 9:26 AM CDT Adult Ongoing Assessment Adult Ongoing Assessment Entered On: 10/22/2014 9:28 CDT Performed On: 10/22/2014 9:26 CDT by JUAN ANTONIO BECKFORD RN Respiratory Respiratory Patient Stated Symptoms : None Respirations : Unlabored Respiratory Pattern : Regular All Lobes Breath Sounds : Clear Cough and Deep Breathe : Done Cough : None LÓPEZJUAN ANTONIO BRIGGS - 10/22/2014 9:26 CDT Cardiovascular Heart Rhythm : Regular Heart Sounds ICU : S1S2 Antiembolism Device Yes/No : Yes Nail Bed Color : [place] Capillary Refill : Less than 2 seconds Edema Assessment : No JUAN ANTONIO BECKFORD - 10/22/2014 9:26 CDT Radial Pulse, Left : 2+ Normal Radial Pulse, Right : 2+ Normal Dorsalis Pedis Pulse, Left : 2+ Normal Dorsalis Pedis Pulse, Right : 2+ Normal JUAN ANTONIO BECKFORD - 10/22/2014 9:26 CDT Skin Color : Normal for ethnicity Skin Description : Normal Skin Temperature : Warm Activity Tolerance : Without distress LÓPEZ, JUAN ANTONIO M - 10/22/2014 9:26 CDT Antiembolism Device Antiembolism Device : Other: heparin LÓPEZJUAN ANTONIO BRIGGS Hoang [facility] 10/22/2014 9:26 CDT Neurological Neuro Patient Stated Symptoms : None Orientation : Oriented x 3 Level of Consciousness : Alert Gait : Steady Last Well Time Known : Not applicable JAQUELIN BECKFORDCyndi Bolton - 10/22/2014 9:26 CDT Crockett Coma Eye Opening Response Marine : Spontaneously Best Verbal Response Marine : Oriented Best Motor Response Marine : Obeys simple commands Crockett Coma Score : 15 LÓPEZJAQUELIN BRIGGSCyndi Bolton - 10/22/2014 9:26 CDT Psycho/Emotional Affect/Behavior : Calm, Cooperative, Appropriate Pain Symptoms : No LÓPEZ, JUAN ANTONIO Hoang [facility] 10/22/2014 9:26 CDT Coping Grid Identifies effective strategies : Yes Uses effective strategies : Yes Reports increase in psychological comfort : Yes Indicates sense of control : Yes Stressors perceived within control : Yes Stable mood with appropriate affect : Yes Behaviors indicate use of coping mechanism : Yes Family supportive and involved in care : Yes Values/Beliefs incorporated appropriately : Yes LÓPEZJAQUELINCyndi Bolton RN - 10/22/2014 9:26 CDT Safety Grid Vision, Hearing, Mobility Adequate to Meet Safety Needs : Yes JUAN ANTONIO BECKFORD RN - 10/22/2014 9:26 CDT Gastrointestinal GI Patient Stated Symptoms : None Abdomen Description : Rounded, Symmetric Abdomen Palpation : Non-Tender, Soft Bowel Movement Last Date : 10/22/2014 CDT Bowel Sounds All Quadrants : Present Passing Flatus : Yes JUAN ANTONIO BECKFORD RN - 10/22/2014 9:26 CDT Nutrition Appetite : Good Eating Difficulties : None Feeding Ability : Complete independence JUAN ANTONIO BECKFORD RN - 10/22/2014 9:26 CDT Genitourinary Patient Stated Symptoms : None Urinary Elimination : Voiding, no difficulties Urine Color : Yellow Urine Description : Clear Bladder Distention : Absent JUAN ANTONIO BECKFORD RN - 10/22/2014 9:26 CDT Integumentary Skin Turgor : Elastic Skin Integrity : Intact Mucous Membrane Color : [place] Mucous Membrane Description : Moist JUAN ANTONIO BECKFORD RN - 10/22/2014 9:26 CDT Lens Grinder Integumentary - Grid Lens Grinder : Electrode JUAN ANTONIO BECKFORD RN - 10/22/2014 9:26 CDT Skin Color : Normal for ethnicity Skin Description : Normal Skin Temperature : Warm LÓPEZ JUAN ANTONIOCyndi Bolton RN - 10/22/2014 9:26 CDT Shawn Sensory Perception Shawn : No impairment Moisture Shawn : Rarely moist Activity Shawn : Walks frequently Mobility Shawn : No limitations Nutrition Shawn : Adequate Friction and Shear Shawn : No apparent problem Shawn Score : 22 LÓPEZ JUAN ANTONIO M RN - 10/22/2014 9:26 CDT Hendrich II Fall Risk Confusion/Disorientation Hendrich : No Depression Fall Risk Hendrich : No Altered Elimination Fall Risk Hendrich : No Dizziness/Vertigo Fall Risk Hendrich : No Gender, Male Fall Risk Hendrich : No Prescribed Antiepileptics Hendrich : No Prescribed Benzodiazepines Hendrich : No Rising From Chair Fall Risk Hendrich : Able to rise in a single movement, no loss of balance with steps Fall Risk Score Hendrich II : 0 JUAN ANTONIO BECKFORD RN - 10/22/2014 9:26 CDT Safe Patient Handling Safe Pt Handling Independent : Yes - No equipment needed Safe Pt Handling Equipment Rec : No Equipment Needed JUAN ANTONIO BECKFORD RN - 10/22/2014 9:26 CDT Education General Patient Education Powergrid Topics : Activity limitations/expectations, Medication dosage, route, scheduling, Medication generic/brand names, purpose, action, Pain Management, Patient rights and responsibilities, Plan of care, Safety, fall Individuals Taught : Patient Barriers to Learning : None evident Teaching Method : Explanation Teaching Evaluation : Able to teach back, Verbalizes understanding JUAN ANTONIO BECKFORD RN - 10/22/2014 9:26 CDT Source: [facility] Document Id: [id number] CDT!109 Miscellaneous - Conversion, Historical Provider Ser - 10/22/2014 1:11 AM CDT Adult Ongoing Assessment Adult Ongoing Assessment Entered On: 10/22/2014 1:18 CDT Performed On: 10/22/2014 1:11 CDT by MIR SALINAS RN Respiratory Respiratory Patient Stated Symptoms : None Respirations : Unlabored Respiratory Pattern : Regular All Lobes Breath Sounds : Clear Cough : None MIR SALINAS RN - 10/22/2014 1:11 CDT Cardiovascular CV Patient Stated Symptoms : None Heart Rhythm : Regular Heart Sounds ICU : S1S2 Antiembolism Device Yes/No : Yes Nail Bed Color : [place] Capillary Refill : Less than 2 seconds Edema Assessment : No Monitored Rhythm : Yes MIR SALINAS RN - 10/22/2014 1:11 CDT Radial Pulse, Left : 2+ Normal Radial Pulse, Right : 2+ Normal Dorsalis Pedis Pulse, Left : 2+ Normal Dorsalis Pedis Pulse, Right : 2+ Normal MIR SALINAS RN - 10/22/2014 1:11 CDT Skin Color : [place] Skin Description : Normal Skin Temperature : Warm Activity Tolerance : Without distress MIR SALINAS RN - 10/22/2014 1:11 CDT Antiembolism Device Antiembolism Device : Foot pumps Antiembolism Device Laterality : Bilateral Antiembolism Device Removal Reason : Activity Antiembolism Device Status : Patient refused MIR SALINAS RN - 10/22/2014 1:11 CDT Neurological Neuro Patient Stated Symptoms : None Orientation : Oriented x 3 Level of Consciousness : Alert Gait : Steady Last Well Time Known : Not applicable MIR SALINAS RN - 10/22/2014 1:11 CDT Crockett Coma Eye Opening Response Crockett : Spontaneously Best Verbal Response Crockett : Oriented Best Motor Response Crockett : Obeys simple commands Marine Coma Score : 15 MIR SALINAS RN - 10/22/2014 1:11 CDT Oral Assessment Lips : Smooth, pink, moist, intact Gingiva : [place], smooth, moist, intact Tongue : Smooth, pink, moist, intact Teeth : Patient has dentures Saliva : Thin, watery, plentiful MIR SALINAS RN - 10/22/2014 1:11 CDT Psycho/Emotional Affect/Behavior : Calm, Cooperative Pain Symptoms : No MIR SALINAS RN - 10/22/2014 1:11 CDT Coping Grid Identifies effective strategies : Yes Uses effective strategies : Yes Reports increase in psychological comfort : Yes Indicates sense of control : Yes Stressors perceived within control : Yes Stable mood with appropriate affect : Yes Behaviors indicate use of coping mechanism : Yes Family supportive and involved in care : Yes Values/Beliefs incorporated appropriately : Yes MIR SALINAS RN - 10/22/2014 1:11 CDT Safety Grid Vision, Hearing, Mobility Adequate to Meet Safety Needs : Yes (Comment: hearing aides here [MIR SALINAS RN - 10/22/2014 1:11 CDT] ) MIR SALINAS RN - 10/22/2014 1:11 CDT Gastrointestinal GI Patient Stated Symptoms : None Abdomen Description : Flat Abdomen Palpation : Non-Tender, Tender Bowel Movement Last Date : 10/21/2014 CDT Bowel Sounds All Quadrants : Present MIR SALINAS RN - 10/22/2014 1:11 CDT Genitourinary Urinary Elimination : Voiding, no difficulties Urine Color : Yellow Urine Description : Clear MIR SALINAS RN - 10/22/2014 1:11 CDT Integumentary Integumentary Patient Stated Symptoms : Bruising Skin Turgor : Elastic Skin Integrity : Intact Mucous Membrane Color : [place] Mucous Membrane Description : Moist MIR SALINAS RN - 10/22/2014 1:11 CDT Lens Grinder Integumentary - Grid Lens Grinder : Electrode Assessment/Action : Not removed Skin Appearance : Normal MIR SALINAS RN - 10/22/2014 1:11 CDT Skin Color : [place] Skin Description : Normal Skin Temperature : Warm MIR SALINAS RN - 10/22/2014 1:11 CDT Shawn Sensory Perception Shawn : No impairment Moisture Shawn : Rarely moist Activity Shawn : Walks occasionally Mobility Shawn : No limitations Nutrition Shawn : Adequate Friction and Shear Shawn : No apparent problem Shawn Score : 21 MIR SALINAS RN - 10/22/2014 1:11 CDT Peripheral IV Peripheral IV Assess/Intervention Grid Peripheral IV #1 Peripheral IV #2 Peripheral IV #3 IV Activity : Discontinue Discontinue Start Removal : Catheter intact, Hemostasis within expected timeframe Number of Attempts : 1 5 Date of Insertion : 10/19/2014 CDT 10/20/2014 CDT 10/21/2014 CDT IV Site : Antecubital Forearm Hand Laterality : Left Left Right Catheter Size : 18 20 20 Catheter Type : Over the needle Over the needle Over the needle Drainage Description : None Secondary Tubing Changed : 10/21/2014 CDT 10/22/2014 CDT Flow/ Patency : No complications IV Equipment/Supplies : Pump tubing, Pump, infusion, Secondary set MIR SALINAS RN - 10/22/2014 1:11 CDT MIR SALINAS RN - 10/22/2014 1:11 CDT MIR SALINAS RN - 10/22/2014 1:11 CDT Hendrich II Fall Risk Confusion/Disorientation Hendrich : No Depression Fall Risk Hendrich : No Altered Elimination Fall Risk Hendrich : No Dizziness/Vertigo Fall Risk Hendrich : No Gender, Male Fall Risk Hendrich : No Prescribed Antiepileptics Hendrich : No Prescribed Benzodiazepines Hendrich : No Rising From Chair Fall Risk Hendrich : Able to rise in a single movement, no loss of balance with steps Fall Risk Score Hendrich II : 0 MIR SALINAS RN - 10/22/2014 1:11 CDT Safe Patient Handling Safe Pt Handling Independent : Yes - No equipment needed Safe Pt Handling Equipment Rec : No Equipment Needed MIR SALINAS RN - 10/22/2014 1:11 CDT Education General Patient Education Powergrid Topics : Activity limitations/expectations, Medication dosage, route, scheduling, Plan of care, Safety, fall, Treatments/Procedures/Tests Individuals Taught : Patient, Daughter Barriers to Learning : None evident Teaching Method : Explanation Teaching Evaluation : Needs reinforcement MIR SALINAS RN - 10/22/2014 1:11 CDT Source: [facility]CH[employer] Document Id: [id number] CDT!146 Miscellaneous - Juan Antonio Beckford R.N. - 10/21/2014 5:00 PM CDT Adult Ongoing Assessment Adult Ongoing Assessment Entered On: 10/21/2014 18:53 CDT Performed On: 10/21/2014 17:00 CDT by JUAN ANTONIO BECKFORD RN Respiratory Respiratory Patient Stated Symptoms : None Respirations : Unlabored Respiratory Pattern : Regular All Lobes Breath Sounds : Clear Cough : None Sputum Amount : None JUAN ANTONIO BECKFORD RN - 10/21/2014 18:51 CDT Cardiovascular CV Patient Stated Symptoms : None Heart Rhythm : Regular Heart Sounds ICU : S1S2 Antiembolism Device Yes/No : Yes Nail Bed Color : [place] Capillary Refill : Less than 2 seconds Edema Assessment : No JUAN ANTONIO BECKFORD RN - 10/21/2014 18:51 CDT Radial Pulse, Left : 2+ Normal Radial Pulse, Right : 2+ Normal Dorsalis Pedis Pulse, Left : 2+ Normal Dorsalis Pedis Pulse, Right : 2+ Normal JUAN ANTONIO BECKFORD RN - 10/21/2014 18:51 CDT Skin Color : Normal for ethnicity Skin Description : Normal Skin Temperature : Warm Activity Tolerance : Without distress JUAN ANTONIO BECKFORD RN - 10/21/2014 18:51 CDT Antiembolism Device Antiembolism Device : Other: lovenox JUAN ANTONIO BECKFORD RN - 10/21/2014 18:51 CDT Neurological Neuro Patient Stated Symptoms : None Orientation : Oriented x 3 Level of Consciousness : Alert Gait : Steady Swallowing Difficulty/Aspiration Risk : None Last Well Time Known : Not applicable JUAN ANTONIO BECKFORD RN - 10/21/2014 18:51 CDT Marine Coma Eye Opening Response Marine : Spontaneously Best Verbal Response Crockett : Oriented Best Motor Response Marine : Obeys simple commands Marine Coma Score : 15 JUAN ANTONIO BECKFORD RN - 10/21/2014 18:51 CDT Psycho/Emotional Affect/Behavior : Calm, Cooperative, Appropriate Pain Symptoms : No JUAN ANTONIO BECKFORD RN - 10/21/2014 18:51 CDT Coping Grid Identifies effective strategies : Yes Uses effective strategies : Yes Reports increase in psychological comfort : Yes Indicates sense of control : Yes Stressors perceived within control : Yes Stable mood with appropriate affect : Yes Behaviors indicate use of coping mechanism : Yes Family supportive and involved in care : Yes Values/Beliefs incorporated appropriately : Yes JUAN ANTONIO BECKFORD RN - 10/21/2014 18:51 CDT Safety Grid Vision, Hearing, Mobility Adequate to Meet Safety Needs : Yes LÓPEZ, JUAN ANTONIO M RN - 10/21/2014 18:51 CDT Gastrointestinal GI Patient Stated Symptoms : None Abdomen Description : Rounded, Symmetric Abdomen Palpation : Non-Tender, Soft Bowel Movement Last Date : 10/21/2014 CDT Bowel Sounds All Quadrants : Present Stool Description : Loose Stool Amount : Small LÓPEZJUAN ANTONIO MENDOZA RN - 10/21/2014 18:51 CDT Nutrition Home Diet : Renal Appetite : Fair Eating Difficulties : None Feeding Ability : Complete independence LÓPEZ, JUAN ANTONIO M RN - 10/21/2014 18:51 CDT Genitourinary Patient Stated Symptoms : None Urinary Elimination : Voiding, no difficulties Urine Color : Yellow Urine Description : Clear Bladder Distention : Absent JUAN ANTONIO BECKFORD RN - 10/21/2014 18:51 CDT Integumentary Integumentary Patient Stated Symptoms : None Skin Turgor : Elastic Skin Integrity : Intact Mucous Membrane Color : [place] Mucous Membrane Description : Moist LÓPEZ JUAN ANTONIO M RN - 10/21/2014 18:51 CDT Lens Grinder Integumentary - Grid Lens Grinder : Electrode LÓPEZ, JUAN ANTONIO M RN - 10/21/2014 18:51 CDT Skin Color : Normal for ethnicity Skin Description : Normal Skin Temperature : Warm LÓPEZ, JUAN ANTONIO M RN - 10/21/2014 18:51 CDT Shawn Sensory Perception Shawn : No impairment Moisture Shawn : Rarely moist Activity Shawn : Walks frequently Mobility Shawn : No limitations Nutrition Shawn : Adequate Friction and Shear Shawn : No apparent problem Shawn Score : 22 LÓEPZ JUAN ANTONIO M - 10/21/2014 18:51 CDT Hendrich II Fall Risk Confusion/Disorientation Hendrich : Yes Depression Fall Risk Hendrich : No Altered Elimination Fall Risk Hendrich : No Dizziness/Vertigo Fall Risk Hendrich : No Gender, Male Fall Risk Hendrich : No Prescribed Antiepileptics Hendrich : No Prescribed Benzodiazepines Hendrich : No Rising From Chair Fall Risk Hendrich : Able to rise in a single movement, no loss of balance with steps Fall Risk Score Hendrich II : 4 LÓPEZJAQUELIN MENODZACyndi Bolton RN - 10/21/2014 18:51 CDT Safe Patient Handling Safe Pt Handling Independent : Yes - No equipment needed Safe Pt Handling Equipment Rec : No Equipment Needed JUAN ANTONIO BECKFORD RN - 10/21/2014 18:51 CDT Education General Patient Education Powergrid Topics : Individual plan for pain management, Medication dosage, route, scheduling, Medication generic/brand names, purpose, action, Pain Management, Plan of care, Safety, fall Individuals Taught : Patient Barriers to Learning : None evident Teaching Method : Explanation Teaching Evaluation : Able to teach back JUAN ANTONIO BECKFORD RN - 10/21/2014 18:51 CDT Source: [employer] Document Id: [id number] CDT!114 Jarod - Andrés Infante R.N. - 10/21/2014 2:26 PM CDT Adult Activities of Daily Living Adult Activities of Daily Living Entered On: 10/21/2014 14:26 CDT Performed On: 10/21/2014 14:26 CDT by ANDRÉS INFANTE RN ADLs I Activity Status ADL : Bathroom privileges ANDRÉS INFANTE RN - 10/21/2014 14:26 CDT Source: [employer] Document Id: [id number] CDT!3 Jarod - Juan Antonio Beckford R.N. - 10/21/2014 10:13 AM CDT Adult Ongoing Assessment Adult Ongoing Assessment Entered On: 10/21/2014 10:23 CDT Performed On: 10/21/2014 10:13 CDT by JUAN ANTONIO BECKFORD RN Respiratory Respiratory Patient Stated Symptoms : None Respirations : Unlabored Respiratory Pattern : Regular All Lobes Breath Sounds : Clear Cough : None JUAN ANTONIO BECKFORD RN - 10/21/2014 10:13 CDT Cardiovascular CV Patient Stated Symptoms : None Heart Rhythm : Regular Heart Sounds ICU : S1S2 Antiembolism Device Yes/No : Yes Nail Bed Color : [place] Capillary Refill : Less than 2 seconds Edema Assessment : No JUAN ANTONIO BECKFORD [facility] 10/21/2014 10:13 CDT Radial Pulse, Left : 2+ Normal Radial Pulse, Right : 2+ Normal Dorsalis Pedis Pulse, Left : 2+ Normal Dorsalis Pedis Pulse, Right : 2+ Normal JUAN ANTONIO BECKFORD [facility] 10/21/2014 10:13 CDT Skin Color : Normal for ethnicity Skin Description : Normal JUAN ANTONIO BECKFORD [facility] 10/21/2014 10:13 CDT Antiembolism Device Antiembolism Device : Other: lovenox JUAN ANTONIO BECKFORD [facility] 10/21/2014 10:13 CDT Neurological Neuro Patient Stated Symptoms : None Orientation : Oriented x 3 Level of Consciousness : Alert Gait : Steady Swallowing Difficulty/Aspiration Risk : None Last Well Time Known : Not applicable JUAN ANTONIO BECKFORD [facility] 10/21/2014 10:13 CDT Crockett Coma Eye Opening Response Crockett : Spontaneously Best Verbal Response Crockett : Oriented Best Motor Response Crockett : Obeys simple commands Marine Coma Score : 15 JUAN ANTONIO BECKFORD [facility] 10/21/2014 10:13 CDT Psycho/Emotional Affect/Behavior : Calm, Cooperative, Appropriate Pain Symptoms : No Feels Rested : Yes LÓPEZJUAN ANTONIO Wong - 10/21/2014 10:13 CDT Coping Grid Identifies effective strategies : Yes Uses effective strategies : Yes Reports increase in psychological comfort : Yes Indicates sense of control : Yes Stressors perceived within control : Yes Stable mood with appropriate affect : Yes Behaviors indicate use of coping mechanism : Yes Family supportive and involved in care : Yes Values/Beliefs incorporated appropriately : Yes LÓPEZJUAN ANTONIO Wong - 10/21/2014 10:13 CDT Safety Grid Vision, Hearing, Mobility Adequate to Meet Safety Needs : Yes LÓPEZJUAN ANTONIO Wong [facility] 10/21/2014 10:13 CDT Gastrointestinal GI Patient Stated Symptoms : None Abdomen Description : Rounded, Symmetric Abdomen Palpation : Non-Tender, Soft Bowel Movement Last Date : 10/21/2014 CDT Bowel Sounds All Quadrants : Present Stool Description : Loose Passing Flatus : Yes LÓPEZJUAN ANTONIO Wong [facility] 10/21/2014 10:13 CDT Nutrition Appetite : Good Eating Difficulties : None Feeding Ability : Complete independence LÓPEZJUAN ANTONIO BRIGGS - 10/21/2014 10:13 CDT Genitourinary Patient Stated Symptoms : None Urinary Elimination : Voiding, no difficulties Urine Color : Yellow Urine Description : Clear Bladder Distention : Absent JUAN ANTONIO BECKFORD - 10/21/2014 10:13 CDT Integumentary Integumentary Patient Stated Symptoms : None Skin Turgor : Elastic Skin Integrity : Intact Mucous Membrane Color : [place] Mucous Membrane Description : Moist JUAN ANTONIO BECKFORD - 10/21/2014 10:13 CDT Lens Grinder Integumentary - Grid Lens Grinder : Electrode Assessment/Action : Not removed JUAN ANTONIO BECKFORD - 10/21/2014 10:13 CDT Skin Color : Normal for ethnicity Skin Description : Normal Skin Temperature : Warm JUAN ANTONIO BECKFORD - 10/21/2014 10:13 CDT Shawn Sensory Perception Shawn : No impairment Moisture Shawn : Rarely moist Activity Shawn : Walks occasionally Mobility Shawn : No limitations Nutrition Shawn : Adequate Friction and Shear Shawn : No apparent problem Shawn Score : 21 LÓPEZ JUAN ANTONIO M - 10/21/2014 10:13 CDT Peripheral IV Peripheral IV Assess/Intervention Grid Peripheral IV #1 Peripheral IV #2 IV Activity : Discontinue Assessment Number of Attempts : 1 Date of Insertion : 10/19/2014 CDT 10/20/2014 CDT IV Site : Antecubital Forearm Laterality : Left Left Catheter Size : 18 20 Catheter Type : Over the needle Over the needle Site Condition : No complications Drainage Description : None Secondary Tubing Changed : 10/21/2014 CDT Dressing/ Activity : Dry, Transparent Flow/ Patency : No complications LÓPEZ JUAN ANTONIO M - 10/21/2014 10:13 CDT LÓPEZ JUAN ANTONIO M - 10/21/2014 10:13 CDT Hendrich II Fall Risk Confusion/Disorientation Hendrich : No Depression Fall Risk Hendrich : No Altered Elimination Fall Risk Hendrich : No Dizziness/Vertigo Fall Risk Hendrich : No Gender, Male Fall Risk Hendrich : No Prescribed Antiepileptics Hendrich : No Prescribed Benzodiazepines Hendrich : No Rising From Chair Fall Risk Hendrich : Able to rise in a single movement, no loss of balance with steps Fall Risk Score Hendrich II : 0 LÓPEZ JUAN ANTONIO M - 10/21/2014 10:13 CDT Safe Patient Handling Safe Pt Handling Independent : Yes - No equipment needed Safe Pt Handling Equipment Rec : No Equipment Needed JUAN ANTONIO BECKFORD RN - 10/21/2014 10:13 CDT Education General Patient Education Powergrid Topics : Activity limitations/expectations, Individual plan for pain management, Medication dosage, route, scheduling, Medication generic/brand names, purpose, action, Nutrition/Diet, Oral care, Pain Management, Physical limitations, Plan of care, Safety, fall Individuals Taught : Patient Barriers to Learning : None evident Teaching Method : Explanation Teaching Evaluation : Able to teach back, Verbalizes understanding JUAN ANTONIO BECKFORD RN - 10/21/2014 10:13 CDT Source: [employer] Document Id: [id number] CDT!134 Miscellaneous - Conversion, Historical Provider Ser - 10/21/2014 1:05 AM CDT Adult Ongoing Assessment Adult Ongoing Assessment Entered On: 10/21/2014 1:10 CDT Performed On: 10/21/2014 1:05 CDT by MIR SALINAS RN Respiratory Respirations : Unlabored Respiratory Pattern : Regular All Lobes Breath Sounds : Clear MIR SALINAS RN - 10/21/2014 1:05 CDT Cardiovascular CV Patient Stated Symptoms : Chest pain Heart Rhythm : Regular Heart Sounds ICU : S1S2 Antiembolism Device Yes/No : Yes Nail Bed Color : [place] Capillary Refill : Less than 2 seconds Edema Assessment : No Monitored Rhythm : Yes MIR SALINAS RN - 10/21/2014 1:05 CDT Radial Pulse, Left : 2+ Normal Radial Pulse, Right : 2+ Normal Dorsalis Pedis Pulse, Left : 2+ Normal Dorsalis Pedis Pulse, Right : 2+ Normal MIR SALINAS RN - 10/21/2014 1:05 CDT Skin Color : [place] Skin Description : Normal Skin Temperature : Warm Activity Tolerance : Without distress MIR SALINAS RN - 10/21/2014 1:05 CDT Antiembolism Device Antiembolism Device : Foot pumps Antiembolism Device Laterality : Bilateral Antiembolism Device Removal Reason : Activity Antiembolism Device Status : Patient refused MIR SALINAS RN - 10/21/2014 1:05 CDT Neurological Neuro Patient Stated Symptoms : None Orientation : Oriented x 3 Level of Consciousness : Alert Gait : Steady Last Well Time Known : Not applicable BRADMIR Xander YING - 10/21/2014 1:05 CDT Crockett Coma Eye Opening Response Marine : To voice Best Verbal Response Marine : Oriented Best Motor Response Crockett : Obeys simple commands Marine Coma Score : 14 MIR SALINAS RN - 10/21/2014 1:05 CDT Oral Assessment Lips : Smooth, pink, moist, intact Gingiva : [place], smooth, moist, intact Tongue : Smooth, pink, moist, intact Teeth : Clean, no debris Saliva : Thin, watery, plentiful MIR SALINAS RN - 10/21/2014 1:05 CDT Psycho/Emotional Affect/Behavior : Cooperative Pain Symptoms : No MIR SALINAS RN - 10/21/2014 1:05 CDT Coping Grid Identifies effective strategies : Yes Uses effective strategies : Yes Reports increase in psychological comfort : Yes Indicates sense of control : Yes Stressors perceived within control : Yes Stable mood with appropriate affect : Yes Behaviors indicate use of coping mechanism : Yes Family supportive and involved in care : Yes Values/Beliefs incorporated appropriately : Yes MIR SALINAS RN - 10/21/2014 1:05 CDT Safety Grid Vision, Hearing, Mobility Adequate to Meet Safety Needs : Yes (Comment: [facility] aides here out for the night [MIR SALINAS RN - 10/21/2014 1:05 CDT] ) MIR SALINAS RN - 10/21/2014 1:05 CDT Gastrointestinal Abdomen Description : Rounded Abdomen Palpation : Non-Tender, Soft Bowel Movement Last Date : 10/20/2014 CDT Bowel Sounds All Quadrants : Present Stool Description : Formed Stool Amount : Small MIR SALINAS RN - 10/21/2014 1:05 CDT Genitourinary Urinary Elimination : Voiding, no difficulties Urine Color : [place] Urine Description : Clear MIR SALINAS RN - 10/21/2014 1:05 CDT Integumentary Skin Turgor : Elastic Skin Integrity : Intact Mucous Membrane Color : [place] Mucous Membrane Description : Moist MIR SALINAS RN - 10/21/2014 1:05 CDT Lens Grinder Integumentary - Grid Lens Grinder : Electrode Assessment/Action : Not removed Skin Appearance : Normal MIR SALINAS RN - 10/21/2014 1:05 CDT Skin Color : [place] Skin Description : Normal Skin Temperature : Warm MIR SALINAS RN - 10/21/2014 1:05 CDT Shawn Sensory Perception Shawn : No impairment Moisture Shawn : Rarely moist Activity Shawn : Walks occasionally Mobility Shawn : No limitations Nutrition Shawn : Adequate Friction and Shear Shawn : No apparent problem Shawn Score : 21 MIR SALINAS RN - 10/21/2014 1:05 CDT Peripheral IV Peripheral IV Assess/Intervention Grid Peripheral IV #1 Peripheral IV #2 IV Activity : Discontinue Start Number of Attempts : 1 Date of Insertion : 10/19/2014 CDT 10/20/2014 CDT IV Site : Antecubital Forearm Laterality : Left Left Catheter Size : 18 20 Catheter Type : Over the needle Over the needle Drainage Description : None Secondary Tubing Changed : 10/21/2014 CDT Dressing/ Activity : Dry, Transparent Flow/ Patency : No complications IV Equipment/Supplies : Pump tubing, Pump, infusion, Secondary set MIR SALINAS RN - 10/21/2014 1:05 CDT MIR SALINAS RN - 10/21/2014 1:05 CDT Hendrich II Fall Risk Confusion/Disorientation Hendrich : No Depression Fall Risk Hendrich : No Altered Elimination Fall Risk Hendrich : No Dizziness/Vertigo Fall Risk Hendrich : No Gender, Male Fall Risk Hendrich : No Prescribed Antiepileptics Hendrich : No Prescribed Benzodiazepines Hendrich : No Rising From Chair Fall Risk Hendrich : Able to rise in a single movement, no loss of balance with steps Fall Risk Score Hendrich II : 0 MIR SALINAS RN - 10/21/2014 1:05 CDT Safe Patient Handling Safe Pt Handling Independent : Yes - No equipment needed Safe Pt Handling Equipment Rec : No Equipment Needed MIR SALINAS RN - 10/21/2014 1:05 CDT Education General Patient Education Powergrid Topics : Diagnostic results, Plan of care, Safety, fall, Treatments/Procedures/Tests Individuals Taught : Patient, Family member Barriers to Learning : None evident Teaching Method : Explanation Teaching Evaluation : Needs reinforcement MIR SALINAS RN - 10/21/2014 1:05 CDT [facility] Document Id: [id number] CDT!135 Miscellaneous - Conversion, Historical Provider Ser - 10/21/2014 1:04 AM CDT Adult Activities of Daily Living Adult Activities of Daily Living Entered On: 10/21/2014 1:05 CDT Performed On: 10/21/2014 1:04 CDT by MIR SALINAS RN ADLs I Patient Position : Sitting in bed Activity Status ADL : Bathroom privileges Activity Assistance : Supervision/Minimum 1 person assistance Antiembolism Device : Foot pumps Antiembolism Device Laterality : Bilateral Antiembolism Device Removal Reason : Activity MIR SALINAS RN - 10/21/2014 1:04 CDT ADLs II Bowel Movement Last Date : 10/20/2014 CDT Standard Safety : RAMONE/SCD/ALLA on per policy, Bed in low position, Call device within reach, ID band check, Non-Slip footwear, Rounds every 1 hour, Upper/Half- length side-rails up, Wheels locked MIR SALINAS RN - 10/21/2014 1:04 CDT Source: [employer] Document Id: [id number] CDT!11 Miscellaneous - Alicia Sheikh RAbimbola - 10/20/2014 3:40 PM CDT Adult Ongoing Assessment Adult Ongoing Assessment Entered On: 10/20/2014 17:45 CDT Performed On: 10/20/2014 15:40 CDT by ALICIA SHEIKH RN Respiratory Respiratory Patient Stated Symptoms : None Respirations : Unlabored Respiratory Pattern : Regular All Lobes Breath Sounds : Clear Cough and Deep Breathe : Done Cough : None Sputum Amount : None Suction : None Airway : Patent ALICIA SHEIKH RN - 10/20/2014 17:40 CDT Cardiovascular CV Patient Stated Symptoms : None Heart Rhythm : Regular Antiembolism Device Yes/No : Yes Nail Bed Color : [place] Capillary Refill : Less than 2 seconds Edema Assessment : No Monitored Rhythm : Yes Pacer : No ALICIA SHEIKH RN - 10/20/2014 17:40 CDT Radial Pulse, Left : 2+ Normal Radial Pulse, Right : 2+ Normal Brachial Pulse, Left : 2+ Normal Brachial Pulse, Right : 2+ Normal Popliteal Pulse, Left : 2+ Normal Popliteal Pulse, Right : 2+ Normal Posttibial Pulse, Left : 2+ Normal Posttibial Pulse, Right : 2+ Normal Dorsalis Pedis Pulse, Left : 2+ Normal Dorsalis Pedis Pulse, Right : 2+ Normal ALICIA SHEIKH 10/20/2014 17:40 CDT Skin Color : [place] Skin Description : Dry Skin Temperature : Warm Activity Tolerance : Without distress ALICIA SHEIKH 10/20/2014 17:40 CDT Antiembolism Device Antiembolism Device : Foot pumps, Sequential Compression Device Antiembolism Device Laterality : Bilateral Antiembolism Device Removal Reason : Activity ALICIA SHEIKH 10/20/2014 17:40 CDT Neurological Neuro Patient Stated Symptoms : None Level of Consciousness : Alert Gait : Steady Last Well Time Known : Not applicable ALICIA SHEIKH 10/20/2014 17:40 CDT Marine Coma Eye Opening Response Marine : Spontaneously Best Verbal Response Crockett : Oriented Best Motor Response Crockett : Obeys simple commands Marine Coma Score : 15 ALICIA SHEIKH 10/20/2014 17:40 CDT Oral Assessment Lips : Smooth, pink, moist, intact Gingiva : [place], smooth, moist, intact Tongue : Smooth, pink, moist, intact Teeth : Patient has dentures Saliva : Thin, watery, plentiful ALICIA SHEIKH 10/20/2014 17:40 CDT Psycho/Emotional Affect/Behavior : Calm, Cooperative Pain Symptoms : No ALICIA SHEIKH 10/20/2014 17:40 CDT Coping Grid Identifies effective strategies : Yes Uses effective strategies : Yes Reports increase in psychological comfort : Yes Indicates sense of control : Yes Stressors perceived within control : Yes Stable mood with appropriate affect : Yes Behaviors indicate use of coping mechanism : Yes Family supportive and involved in care : Yes Values/Beliefs incorporated appropriately : Yes ALICIA SHEIKH 10/20/2014 17:40 CDT Safety Grid Vision, Hearing, Mobility Adequate to Meet Safety Needs : Yes ALICIA SHEIKH 10/20/2014 17:40 CDT Gastrointestinal GI Patient Stated Symptoms : None Abdomen Description : Symmetric Abdomen Palpation : Soft Bowel Sounds All Quadrants : Present ALICIA SHEIKH Jaspreet RN - 10/20/2014 17:40 CDT Genitourinary Patient Stated Symptoms : None Urinary Elimination : Voiding, no difficulties Urine Color : Yellow, Light Urine Description : Clear Urine Odor : Odorless ALICIA SHEIKH Jaspreet RN - 10/20/2014 17:40 CDT Integumentary Integumentary Patient Stated Symptoms : None DAVID SHEIKHEdilma Vogel RN - 10/20/2014 17:40 CDT Shawn Sensory Perception Shawn : No impairment Moisture Shawn : Rarely moist Activity Shawn : Walks frequently Mobility Shawn : No limitations Nutrition Shawn : Excellent Friction and Shear Shawn : No apparent problem Shawn Score : 24 ILEANACYNTHIAALICIA RN - 10/20/2014 17:40 CDT Peripheral IV Peripheral IV Assess/Intervention Grid Peripheral IV #1 Peripheral IV #2 IV Activity : Discontinue Start Number of Attempts : 1 Date of Insertion : 10/19/2014 CDT 10/20/2014 CDT IV Site : Antecubital Forearm Laterality : Left Left Catheter Size : 18 20 Catheter Type : Over the needle Over the needle Site Condition : No complications ILEANACYNTHIA ALICIA A RN - 10/20/2014 17:40 CDT ILEANAZEYNEPALICIA GALAN RN - 10/20/2014 17:40 CDT Hendrich II Fall Risk Confusion/Disorientation Hendrich : No Depression Fall Risk Hendrich : No Altered Elimination Fall Risk Hendrich : No Dizziness/Vertigo Fall Risk Hendrich : No Gender, Male Fall Risk Hendrich : No Prescribed Antiepileptics Hendrich : No Prescribed Benzodiazepines Hendrich : No Rising From Chair Fall Risk Hendrich : Able to rise in a single movement, no loss of balance with steps Fall Risk Score Hendrich II : 0 ILEANACYNTHIAALICIA RN - 10/20/2014 17:40 CDT Safe Patient Handling Safe Pt Handling Independent : Yes - No equipment needed Safe Pt Handling Equipment Rec : No Equipment Needed ALICIA SHEIKH RN - 10/20/2014 17:40 CDT Source: [employer] Document Id: [id number] CDT!122 Miscellaneous - Krystyna Gross 10/20/2014 9:00 AM CDT Team Meeting Notes Team Meeting Notes Entered On: 10/20/2014 9:01 CDT Performed On: 10/20/2014 9:00 CDT by KRYSTYNA GROSS Team Notes Team Meeting Grid Discipline : Heel Edge Inker Machine, Family, Wardrobe Manager, Nurse, Patient, Size Worker Topics : Plan of care Goal of the Day : Pt was admitted with afib, low BP and urosepsis. She will be on some antibiotics. Comes from home alone and does well. KRYSTYNA GROSS - 10/20/2014 9:00 CDT Source: [employer] Document Id: [id number] CDT!7 Miscellaneous - Alicia Sheikh, R.NXenia - 10/20/2014 8:47 AM CDT Adult Activities of Daily Living Adult Activities of Daily Living Entered On: 10/20/2014 11:49 CDT Performed On: 10/20/2014 8:47 CDT by ALICIA SHEIKH RN ADLs I Patient Position : Elevate head of bed 45 degrees, Sitting in bed Activity Status ADL : Toileting at bedside Activity Assistance : Stand-by assistance Assistive Device : Walker ALICIA SHEIKH RN - 10/20/2014 11:47 CDT ADLs II Hygiene Assistance Grid Back Rub : Moderate assistance Bed Bath : Moderate assistance Foot Care : Moderate assistance Oral Care : Moderate assistance Catrina Care : Minimum assistance ALICIA SHEIKH RN - 10/20/2014 11:47 CDT ADLs Adult Nutrition Diet Type : Diet -- 10/19/14 23:12:00 CDT, General (No Restrictions) Feeding Assistance : Independent Breakfast : 75 % ALICIA SHEIKH RN - 10/20/2014 11:47 CDT Source: [employer] Document Id: [id number] CDT!17 Miscellaneous - Alicia Sheikh R.N. - 10/20/2014 8:30 AM CDT Adult Ongoing Assessment Adult Ongoing Assessment Entered On: 10/20/2014 11:56 CDT Performed On: 10/20/2014 8:30 CDT by ALICIA SHEIKH RN Respiratory Respiratory Patient Stated Symptoms : None Respirations : Unlabored Respiratory Pattern : Regular All Lobes Breath Sounds : Clear Cough : None Sputum Amount : None ALICIA SHEIKH RN - 10/20/2014 11:49 CDT Cardiovascular CV Patient Stated Symptoms : None Heart Rhythm : Regular Antiembolism Device Yes/No : Yes Nail Bed Color : [place] Capillary Refill : Less than 2 seconds Edema Assessment : No Monitored Rhythm : Yes Pacer : No ALICIA SHEIKH RN - 10/20/2014 11:49 CDT Radial Pulse, Left : 2+ Normal Radial Pulse, Right : 2+ Normal Brachial Pulse, Left : 2+ Normal Brachial Pulse, Right : 2+ Normal Popliteal Pulse, Left : 2+ Normal Popliteal Pulse, Right : 2+ Normal Posttibial Pulse, Left : 2+ Normal Posttibial Pulse, Right : 2+ Normal Dorsalis Pedis Pulse, Left : 2+ Normal Dorsalis Pedis Pulse, Right : 2+ Normal ALICIA SHEIKH RN - 10/20/2014 11:49 CDT Skin Color : [place] Skin Description : Dry Skin Temperature : Warm Activity Tolerance : Minimal distress ALICIA SHEIKH RN - 10/20/2014 11:49 CDT Antiembolism Device Antiembolism Device : Foot pumps Antiembolism Device Laterality : Bilateral ALICIA SHEIKH RN - 10/20/2014 11:49 CDT Neurological Neuro Patient Stated Symptoms : None Orientation : Oriented x 3 Level of Consciousness : Alert Gait : Steady Swallowing Difficulty/Aspiration Risk : None ALICIA SHEIKH RN - 10/20/2014 11:49 CDT Marine Coma Eye Opening Response Marine : Spontaneously Best Verbal Response Marine : Oriented Best Motor Response Marine : Obeys simple commands Marine Coma Score : 15 ALICIA SHEIKH RN - 10/20/2014 11:49 CDT Oral Assessment Lips : Smooth, pink, moist, intact Gingiva : [place], smooth, moist, intact Tongue : Smooth, pink, moist, intact Teeth : Patient has dentures Saliva : Thin, watery, plentiful ALICIA SHEIKH RN - 10/20/2014 11:49 CDT Psycho/Emotional Affect/Behavior : Calm, Cooperative Pain Symptoms : No Feels Rested : Yes ALICIA SHEIKH RN - 10/20/2014 11:49 CDT Coping Grid Identifies effective strategies : Yes Uses effective strategies : Yes Reports increase in psychological comfort : Yes Indicates sense of control : Yes Stressors perceived within control : Yes Stable mood with appropriate affect : Yes Behaviors indicate use of coping mechanism : Yes Family supportive and involved in care : Yes Values/Beliefs incorporated appropriately : Yes ALICIA SHEIKH RN - 10/20/2014 11:49 CDT Safety Grid Vision, Hearing, Mobility Adequate to Meet Safety Needs : Yes ALICIA SHEIKH RN - 10/20/2014 11:49 CDT Gastrointestinal GI Patient Stated Symptoms : None Abdomen Description : Symmetric Abdomen Palpation : Soft Bowel Sounds All Quadrants : Present ALICIA SHEIKH RN - 10/20/2014 11:49 CDT Nutrition Home Diet : Regular Appetite : Good Eating Difficulties : None Feeding Ability : Complete independence ALICIA SHEIKH RN - 10/20/2014 11:49 CDT Genitourinary Patient Stated Symptoms : None Urinary Elimination : Voiding, no difficulties Urine Color : Yellow, Light Urine Description : Bloody Urine Odor : Odorless ALICIA SHEIKH RN - 10/20/2014 11:49 CDT Integumentary Integumentary Patient Stated Symptoms : None Skin Turgor : Elastic Skin Integrity : Intact Mucous Membrane Color : [place] Mucous Membrane Description : Moist Skin Color : [place] Skin Description : Dry Skin Temperature : Warm ALICIA SHEIKH RN - 10/20/2014 11:49 CDT Musculoskeletal Musculoskeletal Patient Stated Symptoms : None ALICIA SHEIKH RN - 10/20/2014 11:49 CDT Peripheral IV Peripheral IV Assess/Intervention Grid Peripheral IV #1 Peripheral IV #2 IV Activity : Discontinue Start Number of Attempts : 1 Date of Insertion : 10/19/2014 CDT 10/20/2014 CDT IV Site : Antecubital Forearm Laterality : Left Left Catheter Size : 18 20 Catheter Type : Over the needle Over the needle ALICIA SHEIKH RN - 10/20/2014 11:49 CDT ALICIA SHEIKH RN - 10/20/2014 11:49 CDT Hendrich II Fall Risk Confusion/Disorientation Hendrich : No Depression Fall Risk Hendrich : No Altered Elimination Fall Risk Hendrich : No Dizziness/Vertigo Fall Risk Hendrich : No Gender, Male Fall Risk Hendrich : No Prescribed Antiepileptics Hendrich : No Prescribed Benzodiazepines Hendrich : No Rising From Chair Fall Risk Hendrich : Able to rise in a single movement, no loss of balance with steps Fall Risk Score Hendrich II : 0 ALICIA SHEIKH RN - 10/20/2014 11:49 CDT Safe Patient Handling Safe Pt Handling Independent : Yes - No equipment needed Safe Pt Handling Equipment Rec : No Equipment Needed ALICIA SHEIKH RN - 10/20/2014 11:49 CDT Education General Patient Education [employer] Topics : Medication dosage, route, scheduling ALICIA SHEIKH RN - 10/20/2014 11:49 CDT Source: [employer] Document Id: [id number] CDT!129 Miscellaneous - Alisha Walton RXeniaNXenia - 10/20/2014 4:13 AM CDT Communication Note Document Has Been Updated Communication Note Entered On: 10/20/2014 4:29 CDT Performed On: 10/20/2014 4:13 CDT by ALISHA WALTON RN Communication Subject of Note : Hoang.Ap Notification Assessment Communication Note : notifed of low SBP's in 70's, checked on both arms and still low. Lungs CTA. ALISHA WALTON RN - 10/20/2014 4:27 CDT Intervention : New Orders Obtained, Read back order ALISHA WALTON RN - 10/20/2014 4:31 CDT Response : To give another 500ml NS bolus over 1hr. ALISHA WALTON RN - 10/20/2014 4:27 CDT Source: [employer] Document Id: [id number] CDT!3 Miscellaneous - Alisha Walton R.N. - 10/20/2014 1:35 AM CDT Communication Note Communication Note Entered On: 10/20/2014 4:30 CDT Performed On: 10/20/2014 1:35 CDT by ALISHA WALTON RN Communication Subject of Note : Hoang.Ap Notification Assessment Communication Note : notified of low SBP's low 80's. Has been sleeping fairly well. Intervention : New Orders Obtained, Read back order ALISHA WALTON RN - 10/20/2014 4:29 CDT Source: [employer] Document Id: [id number] CDT!5 Lindycellaneous - Alisha Walton R.N. - 10/19/2014 10:53 PM CDT Adult Admission Assessment Adult Admission Assessment Entered On: 10/19/2014 23:00 CDT Performed On: 10/19/2014 22:53 CDT by ALISHA WALTON RN Respiratory Respiratory Patient Stated Symptoms : None Respirations : Unlabored Respiratory Pattern : Regular All Lobes Breath Sounds : Clear Cough : None Sputum Amount : None Airway : Patent ALISHA WALTON RN - 10/19/2014 22:53 CDT Cardiovascular Monitored Rhythm : Yes ALISHA WALTON RN - 10/20/2014 3:20 CDT Antiembolism Device Yes/No : No ALISHA WALTON RN - 10/19/2014 23:00 CDT CV Patient Stated Symptoms : None Heart Rhythm : Regular Heart Sounds ICU : S1S2 Nail Bed Color : [place] Capillary Refill : Less than 2 seconds Edema Assessment : No ALISHA WALTON RN - 10/19/2014 22:53 CDT Radial Pulse, Left : 2+ Normal Radial Pulse, Right : 2+ Normal Dorsalis Pedis Pulse, Left : 2+ Normal Dorsalis Pedis Pulse, Right : 2+ Normal ALISHA WALTON RN - 10/19/2014 22:53 CDT Skin Color : Normal for ethnicity Skin Description : Dry Skin Temperature : Warm Activity Tolerance : Without distress ALISHA WALTON DEONNA - 10/19/2014 22:53 CDT Cardiac Rhythm Techs Monitoring Lead : II Atrial Rate : 78 bpm Atrial Rhythm : Regular Ventricular Rate : 78 bpm Ventricular Rhythm : Regular VA Interval : 0.17 QRS Duration : 0.06 second(s) QT Interval : 0.36 second(s) VA Consistency : Consistent QRS Consistency : Consistent ST Segment : Isoelectric Ectopy Frequency : None Cardiac Rhythm : Sinus rhythm ALISHA WALTON DEONNA - 10/20/2014 3:20 CDT Neurological Neuro Patient Stated Symptoms : None Orientation : Oriented x 3 Level of Consciousness : Alert Gait : Unsteady Swallowing Difficulty/Aspiration Risk : None Last Well Time Known : Not applicable ALISHA WALTON DEONNA - 10/19/2014 22:53 CDT [place] Coma Eye Opening Response [place] : Spontaneously Best Verbal Response [place] : Oriented Best Motor Response Marine : Obeys simple commands [place] Coma Score : 15 ALISHA WALTON DEONNA - 10/19/2014 22:53 CDT Psycho/Emotional Pain Symptoms : No Affect/Behavior : Calm Feels Rested : No ALISHA WALTON DEONNA - 10/19/2014 22:53 CDT Coping Grid Stable mood with appropriate affect : Yes ALISHA WALTON DEONNA - 10/19/2014 22:53 CDT Safety Grid Vision, Hearing, Mobility Adequate to Meet Safety Needs : No ALISHA WALTON DEONNA - 10/19/2014 22:53 CDT Gastrointestinal GI Patient Stated Symptoms : None Abdomen Description : Flat Abdomen Palpation : Soft Bowel Sounds All Quadrants : Present Passing Flatus : Yes ALISHA WALTON DEONNA - 10/19/2014 22:53 CDT Genitourinary Patient Stated Symptoms : None Urinary Elimination : Voiding, no difficulties Urine Color : Yellow ALISHA WALTON DEONNA - 10/19/2014 22:53 CDT Integumentary Integumentary Patient Stated Symptoms : Bruising Skin Turgor : Elastic Skin Integrity : Intact Mucous Membrane Color : [place] Mucous Membrane Description : Moist Skin Color : Normal for ethnicity Skin Description : Dry Skin Temperature : Warm ALISHA WALTON DEONNA - 10/19/2014 22:53 CDT Shawn Sensory Perception Shawn : No impairment Moisture Shawn : Rarely moist Activity Shawn : Walks occasionally Mobility Shawn : No limitations Nutrition Shawn : Adequate Friction and Shear Shawn : No apparent problem Shawn Score : 21 ALISHA WALTON RN - 10/19/2014 22:53 CDT Peripheral IV Peripheral IV Assess/Intervention Grid Peripheral IV #1 IV Activity : Assessment Date of Insertion : 10/19/2014 CDT IV Site : Antecubital Laterality : Left Catheter Size : 18 Catheter Type : Over the needle Site Condition : No complications ALISHA WALTON RN - 10/19/2014 22:53 CDT Hendrich II Fall Risk Confusion/Disorientation Hendrich : No Depression Fall Risk Hendrich : No Altered Elimination Fall Risk Hendrich : No Dizziness/Vertigo Fall Risk Hendrich : Yes Gender, Male Fall Risk Hendrich : No Prescribed Antiepileptics Hendrich : No Prescribed Benzodiazepines Hendrich : No Rising From Chair Fall Risk Hendrich : Able to rise in a single movement, no loss of balance with steps Fall Risk Score Hendrich II : 1 ALISHA WALTON RN - 10/19/2014 22:53 CDT Safe Patient Handling Safe Pt Handling Independent : Yes - No equipment needed Safe Pt Handling Equipment Rec : No Equipment Needed ALISHA WALTON RN - 10/19/2014 22:53 CDT Education General Patient Education Powergrid Topics : Medication generic/brand names, purpose, action, Plan of care, Safety, fall Individuals Taught : Patient Barriers to Learning : None evident Teaching Method : Explanation Teaching Evaluation : Verbalizes understanding ALISHA WALTON RN - 10/19/2014 22:53 CDT [facility] Document Id: [id number] CDT!17 Miscellaneous - Alisha Walton, R.N. - 10/19/2014 10:45 PM CDT Adult Admission History Adult Admission History Entered On: 10/19/2014 22:52 CDT Performed On: 10/19/2014 22:45 CDT by ALISHA WALTON RN General Info Preferred Name : Karoline Admitted From : Non-Health Care Facility Point of Origin Mode of Arrival : Cart Accompanied By : Daughter, Son Chief Complaint : weak and dizzy with chills Preferred Communication Mode : Verbal Information Given By : Patient Languages : Greek Is Patient Female and 13-50 no hysterectomy : No ALISHA WALTON RN - 10/19/2014 22:45 CDT Nutrition Have you recently lost weight without trying? : No Decreased Appetite Nutrition : No Tube Feedings or Parenteral Nutrition : No MST Score : 0 Home Diet : No added salt Eating Difficulties : None ALISHA WALTON RN - 10/19/2014 22:45 CDT Home Environment Current Daily Living Assistance : None Living Situation : Home independently Home Equipment : None Sensory Deficits : Hearing deficit, left ear, Hearing deficit, right ear Mobility Assistance Prior to Admission : Independent ALISHA WALTON RN - 10/19/2014 22:45 CDT Psychosocial Adult Domestic Abuse Concerns : None Behavioral Health Screen/Safety Assmt : No Coping : Effective Yazdanism Preference : Unknown ALISHA WALTON RN - 10/19/2014 22:45 CDT Advance Directive Advanced Directives : Yes Advance Directive Type : Living will Advance Directive Location : Other: thinks her doctor has a copy but wants dnr dni ALISHA WALTON RN - 10/19/2014 22:45 CDT Educ Needs Patient/Family Education Needs : Plan of care, Safety, fall ALISHA WALTON RN - 10/19/2014 22:45 CDT Learning Style Preference Adult Grid Patient : Printed materials Family : Verbal explanation ALISHA WALTON RN - 10/19/2014 22:45 CDT Source: [employer] Document Id: [id number] CDT!38 Miscellaneous - Alisha Walton R.N. - 10/19/2014 10:38 PM CDT Basic Admission Information Document Has Been Updated Basic Admission Information Entered On: 10/19/2014 22:43 CDT Performed On: 10/19/2014 22:38 CDT by ALISHA WALTON RN Vital Signs Temperature Core : 37.4 DegC(Converted to: 99.3 DegF) Apical Heart Rate : 80 /min Respiratory Rate : 18 /min Systolic Blood Pressure : 96 mmHg Diastolic Blood Pressure : 48 mmHg (<LLOW) NIBP Mean : 64 mmHg SpO2 : 97 % Oxygen Saturation Monitoring Frequency : Intermittent Oxygen Therapy : Room air Height : 168 cm(Converted to: 5 ft 6 inch(es)) Actual Weight : 61.5 kg Actual Weight Conversion to Pounds : 135.3 lb Weight Source : Standing scale Height Source : Measured Body Mass Index : 21.79 kg/m2 ALISHA WALTON RN - 10/19/2014 22:38 CDT Allergy Rule (As Of: 10/19/2014 22:43:10 CDT) Allergies (Active) Septra Estimated Onset Date: Unspecified ; Created By: JOSE DANIEL BALDWIN MD; Reaction Status: Active ; Category: Drug ; Substance: Septra ; Type: Allergy ; Updated By: JOSE DANIEL BALDWIN MD; Reviewed Date: 10/19/2014 22:43 CDT zinc acetate containing compounds Estimated Onset Date: Unspecified ; Reactions: rash ; Created By: GAGAN TRAN; Reaction Status: Active ; Category: Drug ; Substance: zinc acetate containing compounds ; Type: Allergy ; Updated By: GAGAN TRAN; Reviewed Date: 10/19/2014 22:43 CDT Valuables/Belongings Valuables/Belongings Grid Valuables at Bedside Clothes, Patient Valuables : Pants, Shirt, Shoes, Undergarments ALISHA WALTON RN - 10/19/2014 22:52 CDT Jewelry : None Personal Devices : Dentures, lower, Dentures, upper, Glasses, Hearing aid, left, Hearing aid, right ALISHA WALTON RN - 10/19/2014 22:52 CDT ALISHA WALTON RN - 10/19/2014 22:43 CDT (Comment: family took home [ALISHA WALTON RN - 10/19/2014 22:43 CDT] ) Home Medication Disposition : None brought in with patient ANTON ALISHA Birch RN - 10/19/2014 22:43 CDT Source: [facility] [employer]ART Document Id: [id number] CDT!6 documented in this encounter Plan of Treatment Not on filedocumented as of this encounter Procedures Procedure Name Priority Date/Time Associated Comments Diagnosis AUTOMATED Routine 10/24/2014 6:09 AM Results f or this DIFFERENTIAL, B CDT procedure ar e in the results section. CBC WITH DIFFERENTIAL, Routine 10/24/2014 6:09 AM Results for this B CDT procedure are i n the results section. COMPREHENSIVE Routine 10/24/2014 6:09 AM Results for this METABOLIC PANEL, S/P CDT procedu re are in the results section. AUTOMATED Routine 10/23/2014 6:28 AM Results f or this DIFFERENTIAL, B CDT procedure ar e in the results section. CBC WITH DIFFERENTIAL, Routine 10/23/2014 6:28 AM Results for this B CDT procedure are i n the results section. COMPREHENSIVE Routine 10/23/2014 6:28 AM Results for this METABOLIC PANEL, S/P CDT procedu re are in the results section. URINALYSIS WITH Routine 10/22/2014 6:35 PM Result s for this MICROSCOPIC CDT procedure are i n the results section. AUTOMATED Routine 10/22/2014 6:12 AM Results f or this DIFFERENTIAL, B CDT procedure ar e in the results section. CBC WITH DIFFERENTIAL, Routine 10/22/2014 6:12 AM Results for this B CDT procedure are i n the results section. COMPREHENSIVE Routine 10/22/2014 6:12 AM Results for this METABOLIC PANEL, S/P CDT procedu re are in the results section. US KIDNEYS BILATERAL Routine 10/21/2014 7:55 AM R esults for this WITH BLADDER CDT procedure are i n the results section. AUTOMATED Routine 10/21/2014 6:28 AM Results f or this DIFFERENTIAL, B CDT procedure ar e in the results section. IRON AND TOT Routine 10/21/2014 6:28 AM Results f or this IRON-BINDING CAPACITY, CDT proce dure are in S/P the results section. CBC WITH DIFFERENTIAL, Routine 10/21/2014 6:28 AM Results for this B CDT procedure are i n the results section. FOLATE, S Routine 10/21/2014 6:28 AM Results f or this CDT procedure are i n the results section. VITAMIN B12 ASSAY, S Routine 10/21/2014 6:28 AM R esults for this CDT procedure are i n the results section. COMPREHENSIVE Routine 10/21/2014 6:28 AM Results for this METABOLIC PANEL, S/P CDT procedu re are in the results section. AUTOMATED Routine 10/20/2014 6:29 PM Results f or this DIFFERENTIAL, B CDT procedure ar e in the results section. CBC WITH DIFFERENTIAL, Routine 10/20/2014 6:29 PM Results for this B CDT procedure are i n the results section. COMPREHENSIVE Routine 10/20/2014 6:29 PM Results for this METABOLIC PANEL, S/P CDT procedu re are in the results section. documented in this encounter Results (ABNORMAL) Automated Differential (10/24/2014 6:09 AM CDT) [facility] gist Method Time Signature Absolute 1.65 (L) 1.70 - POWERCHART Neutrophils 7.00 109L Lymphocytes 1.86 0.90 - POWERCHART 2.90 X109L Monocytes 0.44 0.30 - POWERCHART 0.90 X109L Eosinophils 0.36 0.05 - POWERCHART 0.50 X109L Absolute 0.05 0.00 - POWERCHART Basophil 0.30 X109L Specimen Anatomical Collection Method Collection Time Receive d Time (Source) Location / / Volume Laterality Blood 10/24/2014 6:09 AM 6:09 CDT AM CDT Jose Daniel Baldwin M.D. LAB BLOOD ADD-ON Performing Organization Address City/State/ZIP Code Phon e Number POWERCHART (ABNORMAL) CBC with Differential (10/24/2014 6:09 AM CDT) [facility] [employer] Method Time Signature Leukocytes 4.4 3.5 - 10.5 POWERCHART X109L Erythrocytes 3.39 (L) 3.90 - POWERCHART 5.03 F2940L Hemoglobin 10.1 (L) 12.0 - POWERCHART 15.5 GDL Hematocrit 31.4 (L) 34.9 - POWERCHART 44.5 MCV 92.6 81.6 - POWERCHART 98.3 FL HX RDW 14.2 11.9 - POWERCHART 15.5 Platelet Count 195 150 - 450 POWERCHART X109L HXDifferential? Auto POWERCHART Specimen (Source) Anatomical Collection Method Collection Time Re ceived Time Location / / Volume Laterality Blood 10/24/2014 6:09 AM CDT Jose Daniel Baldwin M.D. LAB BLOOD ADD-ON Performing Organization Address City/State/ZIP Code Phon e Number POWERCHART (ABNORMAL) CMP (Comprehensive Metabolic Panel) (10/24/2014 6:09 AM CDT) [facility] [employer] Method Time Signature Alanine 15 7 - 45 UL POWERCHART Amniotransferase, LD Albumin, S 3.1 (L) 3.5 - 5.2 POWERCHART GDL Alkaline 39 35 - 105 POWERCHART Phosphatase, S UL Aspartate 16 8 - 43 UL POWERCHART Aminotransferase (AST), S Sodium, S 144 135 - 145 POWERCHART MMOLL Potassium, S 4.8 3.5 - 5.1 POWERCHART MMOLL Chloride, S 113 (H) 98 - 107 POWERCHART MMOLL CO2 Total 22 22 - 29 POWERCHART MMOLL BUN (Blood Urea 18 6 - 24 POWERCHART Nitrogen), S MGDL Creatinine 2.1 (H) 0.6 - 1.1 POWERCHART MGDL Calcium, Total, S 9.1 8.8 - 10.3 POWERCHART MGDL Anion Gap 9 7 - 15 POWERCHART MMOLL HXeGFR (MDRD) 22.8 (L) >=60.0 POWERCHART MLMINSA eGFR Black/ 27.7 (L) >=60.0 POWERCHART [place] MLMINSA Bilirubin, Total, S 0.2 <=1.2 MGDL POWERCHAR T Total Protein, S 5.5 (L) 6.3 - 7.9 POWERCHART GDL Glucose 91 70 - 140 POWERCHART MGDL Specimen (Source) Anatomical Collection Method Collection Time Re ceived Time Location / / Volume Laterality Blood 10/24/2014 6:09 AM CDT Jose Daniel Baldwin M.D. LAB BLOOD ADD-ON Performing Organization Address City/State/ZIP Code Phon e Number POWERCHART Automated Differential (10/23/2014 6:28 AM CDT) P athologist Signature Absolute 2.11 1.70 - POWERCHART Neutrophils 7.00 109L Lymphocytes 1.69 0.90 - POWERCHART 2.90 X109L Monocytes 0.35 0.30 - POWERCHART 0.90 X109L Eosinophils 0.35 0.05 - POWERCHART 0.50 X109L Absolute 0.03 0.00 - POWERCHART Basophil 0.30 X109L Specimen Anatomical Collection Method Collection Time Receive d Time (Source) Location / / Volume Laterality Blood 10/23/2014 6:28 AM 5 6:28 CDT AM CDT Jose Daniel Baldwin M.D. LAB BLOOD ADD-ON Performing Organization Address City/State/ZIP Code Phon e Number POWERCHART (ABNORMAL) CBC with Differential (10/23/2014 6:28 AM CDT) [facility] [employer] Method Time Signature Leukocytes 4.5 3.5 - 10.5 POWERCHART X109L Erythrocytes 3.42 (L) 3.90 - POWERCHART 5.03 P3301S Hemoglobin 10.3 (L) 12.0 - POWERCHART 15.5 GDL Hematocrit 31.9 (L) 34.9 - POWERCHART 44.5 MCV 93.3 81.6 - POWERCHART 98.3 FL HX RDW 14.2 11.9 - POWERCHART 15.5 Platelet Count 199 150 - 450 POWERCHART X109L HXDifferential? Auto POWERCHART Specimen (Source) Anatomical Collection Method Collection Time Re ceived Time Location / / Volume Laterality Blood 10/23/2014 6:28 AM CDT Jose Daniel Baldwin M.D. LAB BLOOD ADD-ON Performing Organization Address City/State/ZIP Code Phon e Number POWERCHART (ABNORMAL) CMP (Comprehensive Metabolic Panel) (10/23/2014 6:28 AM CDT) [facility] [employer] Method Time Signature Alanine 13 7 - 45 UL POWERCHART Amniotransferase, LD Albumin, S 3.1 (L) 3.5 - 5.2 POWERCHART GDL Alkaline 41 35 - 105 POWERCHART Phosphatase, S UL Aspartate 13 8 - 43 UL POWERCHART Aminotransferase (AST), S Sodium, S 146 (H) 135 - 145 POWERCHART MMOLL Potassium, S 4.7 3.5 - 5.1 POWERCHART MMOLL Chloride, S 114 (H) 98 - 107 POWERCHART MMOLL CO2 Total 22 22 - 29 POWERCHART MMOLL BUN (Blood Urea 18 6 - 24 POWERCHART Nitrogen), S MGDL Creatinine 2.2 (H) 0.6 - 1.1 POWERCHART MGDL Calcium, Total, S 9.4 8.8 - 10.3 POWERCHART MGDL Anion Gap 10 7 - 15 POWERCHART MMOLL HXeGFR (MDRD) 21.6 (L) >=60.0 POWERCHART MLMINSA eGFR Black/ 26.2 (L) >=60.0 POWERCHART [place]e MLMINSA Bilirubin, Total, S 0.2 <=1.2 MGDL POWERCHAR T Total Protein, S 5.6 (L) 6.3 - 7.9 POWERCHART GDL Glucose 90 70 - 140 POWERCHART MGDL Specimen (Source) Anatomical Collection Method Collection Time Re ceived Time Location / / Volume Laterality Blood 10/23/2014 6:28 AM CDT Jose Daniel Baldwin M.D. LAB BLOOD ADD-ON Performing Organization Address City/State/ZIP Code Phon e Number POWERCHART (ABNORMAL) Urinalysis, Complete, Includes Microscopic (10/22/2014 6:35 PM CDT) Patholo gist Method Time Signature HXUr Color Yellow Colorless POWERCHART Clarity Clear Clear POWERCHART Glucose Negative Negative POWERCHART MGDL HXBILIRUBIN Negative Negative POWERCHART Ketones, QL(U) Negative Negative POWERCHART MGDL Specific <=1.005 POWERCHART Ollie, POCT, U HXBLOOD Negative Negative POWERCHART pH, POCT, Urine 5.5 <5.0 POWERCHART Protein, Ur, Negative Negative POWERCHART Dip MGDL Urobilinogen 0.2 0.2 MGDL POWERCHART HXNITRITE Negative Negative POWERCHART Leukocyte Negative Negative POWERCHART Esterase HXUR WBC. 11-20 (A) None Seen POWERCHART HPF HXUR RBC. Occ-2 None Seen POWERCHART HPF HXUR Bacteria, Present (A) None Seen POWERCHART Transitional Occ-3 (A) None Seen POWERCHART Cells HPF Squamous Occ-3 (A) None Seen POWERCHART Epithelial HPF HXUR WBC Cast Occasional None Seen POWERCHART (A) LPF Specimen (Source) Anatomical Collection Method Collection Time Re ceived Time Location / / Volume Laterality Urine 10/22/2014 6:35 PM CDT Jose Daniel Baldwin M.D. LAB URINE ORDERABLES Performing Organization Address City/State/ZIP Code Phon e Number POWERCHART Automated Differential (10/22/2014 6:12 AM CDT) P athologist Signature Absolute 2.94 1.70 - POWERCHART Neutrophils 7.00 109L Lymphocytes 1.75 0.90 - POWERCHART 2.90 X109L Monocytes 0.55 0.30 - POWERCHART 0.90 X109L Eosinophils 0.45 0.05 - POWERCHART 0.50 X109L Absolute 0.03 0.00 - POWERCHART Basophil 0.30 X109L Specimen Anatomical Collection Method Collection Time Receive d Time (Source) Location / / Volume Laterality Blood 10/22/2014 6:12 AM 5 6:12 CDT AM CDT Jose Daniel Baldwin M.D. LAB BLOOD ADD-ON Performing Organization Address City/State/ZIP Code Phon e Number POWERCHART (ABNORMAL) CBC with Differential (10/22/2014 6:12 AM CDT) [facility] Method Time Signature Leukocytes 5.7 3.5 - 10.5 POWERCHART X109L Erythrocytes 3.47 (L) 3.90 - POWERCHART 5.03 [id number] Hemoglobin 10.4 (L) 12.0 - POWERCHART 15.5 GDL Hematocrit 32.6 (L) 34.9 - POWERCHART 44.5 MCV 93.9 81.6 - POWERCHART 98.3 FL HX RDW 14.2 11.9 - POWERCHART 15.5 Platelet Count 203 150 - 450 POWERCHART X109L HXDifferential? Auto POWERCHART Specimen (Source) Anatomical Collection Method Collection Time Re ceived Time Location / / Volume Laterality Blood 10/22/2014 6:12 AM CDT Jose Daniel Baldwin M.D. LAB BLOOD ADD-ON Performing Organization Address City/State/ZIP Code Phon e Number POWERCHART (ABNORMAL) CMP (Comprehensive Metabolic Panel) (10/22/2014 6:12 AM CDT) [facility] Method Time Signature Alanine 12 7 - 45 UL POWERCHART Amniotransferase, LD Albumin, S 3.2 (L) 3.5 - 5.2 POWERCHART GDL Alkaline 41 35 - 105 POWERCHART Phosphatase, S UL Aspartate 13 8 - 43 UL POWERCHART Aminotransferase (AST), S Sodium, S 145 135 - 145 POWERCHART MMOLL Potassium, S 4.8 3.5 - 5.1 POWERCHART MMOLL Chloride, S 115 (H) 98 - 107 POWERCHART MMOLL CO2 Total 22 22 - 29 POWERCHART MMOLL BUN (Blood Urea 23 6 - 24 POWERCHART Nitrogen), S MGDL Creatinine 2.4 (H) 0.6 - 1.1 POWERCHART MGDL Calcium, Total, S 9.1 8.8 - 10.3 POWERCHART MGDL Anion Gap 8 7 - 15 POWERCHART MMOLL HXeGFR (MDRD) 19.6 (L) >=60.0 POWERCHART MLMINSA eGFR Black/ 23.7 (L) >=60.0 POWERCHART [place]e MLMINSA Bilirubin, Total, S 0.2 <=1.2 MGDL POWERCHAR T Total Protein, S 5.9 (L) 6.3 - 7.9 POWERCHART GDL Glucose 102 70 - 140 POWERCHART MGDL Specimen (Source) Anatomical Collection Method Collection Time Re ceived Time Location / / Volume Laterality Blood 10/22/2014 6:12 AM CDT Jose Daniel Baldwin M.D. LAB BLOOD ADD-ON Performing Organization Address City/State/ZIP Code Phon e Number POWERCHART US Retroperitoneum Kidney Bilateral (10/21/2014 7:55 AM CDT) Anatomical Region Laterality Modality Abdomen, Renal Bilateral Ultrasound Specimen (Source) Anatomical Collection Method Collection Time Re ceived Time Location / / Volume Laterality 10/21/2014 7:55 AM CDT Addenda Addendum by Provider, Kelechi Rosario 10/21/2014 7:55 AM CDT RAD^^^MA US Renal Bilat 10/21/2014 07:55:00 Impressions 10/21/2014 10:58 AM CDT No acute findings. Chronic left renal atrophy. Chronic medical renal disease (increased cortica l echogenicity). Known chronic small subcentimeter parapelvic r ight renal cysts. Narrative 10/21/2014 10:58 AM CDT HISTORY: Abnormally elevated creatinine, abnormally decreased GFR, UTI. Age 78 female. Technique: Transabdominal grayscale and Doppler ultrasound (US) imaging was performed. COMPARISON: Renal US from 12/09/2011. FINDINGS: There are no acute findings an d there has been no significant interval change since 012. No ascites is seen. The kidneys remain asymmetric in size with a right renal length of 11.1 cm (normal) and a left renal length of 6 .1 cm (atrophic). Cortical echogenicity is abnormally increased. Co rtical thinning on the left. There is no US evidence of a solid renal mass, shadowing calculus, or hydronephrosis but there are chronic mul tiple parapelvic right renal cysts. No limited Doppler abnormalities are seen (no attempt at advanced analysis for renal artery steno sis). The urinary bladder was poorly distended at the time of imaging with a pre-void volume of only 55.3 cc, not allowing adequate an e valuation. Therefore, the significance of the small 10.1 cc post-v oid residual is unknown (given lack of distention prior to voidi ng). Normal bilateral ureteral jets. Procedure Note Chemo Parra M.D. / Provider, Deshaun gavin M.D. - 08/20/2016 HISTORY: Abnormally elevated creatinine, abnormally decreased GFR, UTI. Age 78 female. Technique: Transabdominal grayscale and Doppler ultrasound (US) imaging was performed. COMPARISON: Renal US from 12/09/2011. FINDINGS: There are no acute findings an d there has been no significant interval change since 012. No ascites is seen. The kidneys remain asymmetric in size with a right renal length of 11.1 cm (normal) and a left renal length of 6 .1 cm (atrophic). Cortical echogenicity is abnormally increased. Co rtical thinning on the left. There is no US evidence of a solid renal mass, shadowing calculus, or hydronephrosis but there are chronic mul tiple parapelvic right renal cysts. No limited Doppler abnormalities are seen (no attempt at advanced analysis for renal artery steno sis). The urinary bladder was poorly distended at the time of imaging with a pre-void volume of only 55.3 cc, not allowing adequate an e valuation. Therefore, the significance of the small 10.1 cc post-v oid residual is unknown (given lack of distention prior to voidi ng). Normal bilateral ureteral jets. IMPRESSION: No acute findings. Chronic l eft renal atrophy. Chronic medical renal disease (increased cortica l echogenicity). Known chronic small subcentimeter parapelvic r ight renal cysts. Naida LY US PROCEDURES Automated Differential (10/21/2014 6:28 AM CDT) P athologist Signature Absolute 2.21 1.70 - POWERCHART Neutrophils 7.00 109L Lymphocytes 1.22 0.90 - POWERCHART 2.90 X109L Monocytes 0.67 0.30 - POWERCHART 0.90 X109L Eosinophils 0.49 0.05 - POWERCHART 0.50 X109L Absolute 0.02 0.00 - POWERCHART Basophil 0.30 X109L Specimen Anatomical Collection Method Collection Time Receive d Time (Source) Location / / Volume Laterality Blood 10/21/2014 6:28 AM 5 6:28 CDT AM CDT Jose Daniel Baldwin M.D. LAB BLOOD ADD-ON Performing Organization Address City/State/ZIP Code Phon e Number POWERCHART (ABNORMAL) CBC with Differential (10/21/2014 6:28 AM CDT) Patholo gist Method Time Signature Leukocytes 4.6 3.5 - 10.5 POWERCHART X109L Erythrocytes 3.34 (L) 3.90 - POWERCHART 5.03 [id number] Hemoglobin 10.0 (L) 12.0 - POWERCHART 15.5 GDL Hematocrit 31.2 (L) 34.9 - POWERCHART 44.5 MCV 93.4 81.6 - POWERCHART 98.3 FL HX RDW 13.9 11.9 - POWERCHART 15.5 Platelet Count 188 150 - 450 POWERCHART X109L HXDifferential? Auto POWERCHART Specimen (Source) Anatomical Collection Method Collection Time Re ceived Time Location / / Volume Laterality Blood 10/21/2014 6:28 AM CDT Jose Daniel Baldwin M.D. LAB BLOOD ADD-ON Performing Organization Address City/State/ZIP Code Phon e Number POWERCHART Vitamin B12 Assay (10/21/2014 6:28 AM CDT) P athologist Signature Vitamin B12 633 211 - 946 POWERCHART Assay, S PGML Specimen (Source) Anatomical Collection Method Collection Time Re ceived Time Location / / Volume Laterality Blood 10/21/2014 6:28 AM CDT Jose Daniel Baldwin M.D. LAB BLOOD ADD-ON Performing Organization Address City/State/ZIP Code Phon e Number POWERCHART Folate (10/21/2014 6:28 AM CDT) P athologist Signature Folate, S 20.0 >=4.6 NGML POWERCHART Specimen (Source) Anatomical Collection Method Collection Time Re ceived Time Location / / Volume Laterality Blood 10/21/2014 6:28 AM CDT Jose Daniel Baldwin M.D. LAB BLOOD ADD-ON Performing Organization Address City/State/ZIP Code Phon e Number POWERCHART (ABNORMAL) Iron and Total Iron-Binding Capacity (10/21/2014 6:28 AM CDT) P athologist Signature Iron 30 (L) 37 - 145 POWERCHART MCGDL Total Iron 203 (L) 250 - 400 POWERCHART Binding MCGDL Capacity Percent 15 14 - 50 POWERCHART Saturation Specimen (Source) Anatomical Collection Method Collection Time Re ceived Time Location / / Volume Laterality Blood 10/21/2014 6:28 AM CDT Jose Daniel Baldwin M.D. LAB BLOOD ADD-ON Performing Organization Address City/State/ZIP Code Phon e Number POWERCHART (ABNORMAL) CMP (Comprehensive Metabolic Panel) (10/21/2014 6:28 AM CDT) Patholo gist Method Time Signature Alanine 13 7 - 45 UL POWERCHART Amniotransferase, LD Albumin, S 3.0 (L) 3.5 - 5.2 POWERCHART GDL Alkaline 40 35 - 105 POWERCHART Phosphatase, S UL Aspartate 14 8 - 43 UL POWERCHART Aminotransferase (AST), S Sodium, S 145 135 - 145 POWERCHART MMOLL Potassium, S 4.7 3.5 - 5.1 POWERCHART MMOLL Chloride, S 113 (H) 98 - 107 POWERCHART MMOLL CO2 Total 22 22 - 29 POWERCHART MMOLL BUN (Blood Urea 35 (H) 6 - 24 POWERCHART Nitrogen), S MGDL Creatinine 2.7 (H) 0.6 - 1.1 POWERCHART MGDL Calcium, Total, S 8.7 (L) 8.8 - 10.3 POWERCHART MGDL Anion Gap 10 7 - 15 POWERCHART MMOLL HXeGFR (MDRD) 17.1 (L) >=60.0 POWERCHART MLMINSA eGFR Black/ 20.7 (L) >=60.0 POWERCHART [place] MLMINSA Bilirubin, Total, S 0.2 <=1.2 MGDL POWERCHAR T Total Protein, S 5.3 (L) 6.3 - 7.9 POWERCHART GDL Glucose 98 70 - 140 POWERCHART MGDL Specimen (Source) Anatomical Collection Method Collection Time Re ceived Time Location / / Volume Laterality Blood 10/21/2014 6:28 AM CDT Jose Daniel Baldwin M.D. LAB BLOOD ADD-ON Performing Organization Address City/State/ZIP Code Phon e Number POWERCHART (ABNORMAL) Automated Differential (10/20/2014 6:29 PM CDT) [facility] Method Time Signature Absolute 2.23 1.70 - POWERCHART Neutrophils 7.00 109L Lymphocytes 1.42 0.90 - POWERCHART 2.90 X109L Monocytes 0.73 0.30 - POWERCHART 0.90 X109L Eosinophils 0.54 (H) 0.05 - POWERCHART 0.50 X109L Absolute 0.02 0.00 - POWERCHART Basophil 0.30 X109L Specimen Anatomical Collection Method Collection Time Receive d Time (Source) Location / / Volume Laterality Blood 10/20/2014 6:29 PM 5 6:29 CDT PM CDT Jose Daniel Baldwin M.D. LAB BLOOD ADD-ON Performing Organization Address City/[facility] Code Phon e Number POWERCHART (ABNORMAL) CBC with Differential (10/20/2014 6:29 PM CDT) [facility] Method Time Signature Leukocytes 4.9 3.5 - 10.5 POWERCHART X109L Erythrocytes 3.40 (L) 3.90 - POWERCHART 5.03 [id number] Hemoglobin 10.3 (L) 12.0 - POWERCHART 15.5 GDL Hematocrit 31.2 (L) 34.9 - POWERCHART 44.5 MCV 91.8 81.6 - POWERCHART 98.3 FL HX RDW 13.8 11.9 - POWERCHART 15.5 Platelet Count 199 150 - 450 POWERCHART X109L HXDifferential? Auto POWERCHART Specimen (Source) Anatomical Collection Method Collection Time Re ceived Time Location / / Volume Laterality Blood 10/20/2014 6:29 PM CDT Jose Daniel Baldwin M.D. LAB BLOOD ADD-ON Performing Organization Address City/[facility]/ZIP Code Phon e Number POWERCHART (ABNORMAL) CMP (Comprehensive Metabolic Panel) (10/20/2014 6:29 PM CDT) [facility] Method Time Signature Alanine 12 7 - 45 UL POWERCHART Amniotransferase, LD Albumin, S 3.1 (L) 3.5 - 5.2 POWERCHART GDL Alkaline 47 35 - 105 POWERCHART Phosphatase, S UL Aspartate 14 8 - 43 UL POWERCHART Aminotransferase (AST), S Sodium, S 140 135 - 145 POWERCHART MMOLL Potassium, S 4.4 3.5 - 5.1 POWERCHART MMOLL Chloride, S 108 (H) 98 - 107 POWERCHART MMOLL CO2 Total 20 (L) 22 - 29 POWERCHART MMOLL BUN (Blood Urea 38 (H) 6 - 24 POWERCHART Nitrogen), S MGDL Creatinine 2.7 (H) 0.6 - 1.1 POWERCHART MGDL Calcium, Total, S 8.6 (L) 8.8 - 10.3 POWERCHART MGDL Anion Gap 12 7 - 15 POWERCHART MMOLL HXeGFR (MDRD) 17.1 (L) >=60.0 POWERCHART MLMINSA eGFR Black/ 20.7 (L) >=60.0 POWERCHART [place] MLMINSA Bilirubin, Total, S 0.2 <=1.2 MGDL POWERCHAR T Total Protein, S 5.8 (L) 6.3 - 7.9 POWERCHART GDL Glucose 128 70 - 140 POWERCHART MGDL Specimen (Source) Anatomical Collection Method Collection Time Re ceived Time Location / / Volume Laterality Blood 10/20/2014 6:29 PM CDT Jose Daniel Baldwin M.D. LAB BLOOD ADD-ON Performing Organization Address City/State/ZIP Code Phon e Number POWERCHART documented in this encounter Visit Diagnoses Not on filedocumented in this encounter
--- OUTSIDE RECORDS SUMMARY | 2022-01-19 14:58 | XMS_ITS | Encounter Summary ---
:1935 Author Organization [facility] Address [address] [place] [address] Care Team Providers Name Role Phone Unavailable Primary Care Provider Unavailable Encounter Details Date Type Department Care Team Description 08/20/2015 Hospital Encounter HX [facility] Roxanne Orellana D .O. Social History Tobacco Use Types Packs/Day Years Used Date Smoking Tobacco: Never Assessed Sex Assigned at Date Recorded Not on file documented as of this encounter Last Filed Vital Signs Vital Sign Reading Time Taken Comments Blood Pressure 158/71 08/20/2015 8:15 PM CDT Pulse 80 08/20/2015 8:15 PM CDT Temperature - - Respiratory Rate 16 08/20/2015 8:15 PM CDT Oxygen Saturation - - Inhaled Oxygen Concentration - - Weight - - Height 170 cm (5' 6.93) 08/20/2015 8:15 PM CDT Body Mass Index - - documented in this encounter Discharge Summaries Elsi Mantilla APRN, C.N.P., M.S.N. - 08/20/2015 8:37 PM CDT ED Discharge Instructions [address] [place] [address] Name: KAROLINE HALEY Date of : 1935 12:00 AM Visit Date: 08/20/2015 6:22 PM [facility] Number: [id number] Address: [address] [place] [phone] Primary Care Provider: BRITNEY BALDWIN MD IMPORTANT: [facility] in [place] would like to thank you for allowing us to assistyou with your healthcare needs. The following includes patient education materials and information regarding your injury/illness. Diagnosis: Bleeding Rectal Follow-Up Instructions: With: Address: When: BRITNEY BALDWIN [address] [place], [place] [id number] [facility] (1) Within 3 - 5days Comments: Follow up with your primary within the week for a recheck. If it is an anal fissure, it should heal in days to weeks. For passing out or near passing out, increase in the amount of blood you see, blackor tarry stools, coffee ground colored vomit or any further concerns, return to the ER Your Upcoming Appointments: Date Time Location Provider No Appointments found Patient Education Materials: ANAL FISSURE (Adult) The anal canal is the end portion of the intestinal tract. It includes the rectum and anus. Feces are passed through the anus. Sometimes a crack or tear develops in the lining of the anal canal. This condition is called an anal fissure. An anal fissure may occur inside or outside the body. It may cause pain and bright red bleeding, especially during a bowel movement. Sometimes there is swelling, itching, and skin irritation. The area may spasm, causing more pain and skin separation. Anal fissures are caused by local trauma to the anal canal. This can be due to insertion of an object into the anal canal, or by constipation or severe diarrhea. Anal fissures usually heal on their own and require no special care. Sometimes a cream is applied tosoothe the area. Pain medications, stool softeners, and glycerin suppositories may be prescribed. Warm baths may relax the anus, making it easier to have a bowel movement. Once the area has healed, thedoctor may want to check the intestinal tract with a small, flexible tube (endoscope). Occasionally a fissure does not heal on its own. In those rare cases, surgery is needed to close the tear. HOME CARE: Medications: The doctor may prescribe a pain medication, stool softener, or laxative to make it easier for you to have a bowel movement. Follow the doctors instructions when receiving these medications. General Care: The following may help prevent anal fissures: ?? Avoiding straining when defecating. This includes treating and preventing constipation by eating food rich in dietary fiber, eating fresh fruits and vegetables, drinking enough water, occasional useof a stool softener, and avoiding constipating agents such as caffeine. Similarly, prompt treatment of diarrhea may reduce anal strain. ?? Careful anal hygiene after defecation, including using soft toilet paper and/or cleaning with water. ?? In cases of pre-existing or suspected fissure, use of a lubricating ointment (e.g. hemorrhoid ointments) can be helpful. ?? Fiber supplements. Taking a regular fiber supplement will help keep your stool soft and easier topass, to avoid further irritation of the fissure. ?? Sitz baths. Soaking in warm water for 10 to 20 minutes several times a day, especially after bowel movements, will help relax the sphincter and promote healing. Don't use soap or bubble bath, as this may irritate the area. FOLLOW UP as advised by the doctor or our staff. GET PROMPT MEDICAL ATTENTION if any of the following occurs: ?? Fever greater than 100.4??F (38??C) ?? Signs of infection such as increased redness or swelling or foul-smelling drainage ?? Continued rectal bleeding, pain, or itching ?? Abnormal bowel patterns including constipation, hard stools, or explosive diarrhea Consider Using Patient Online Services Patient Online [...] if you dont have one. Go to [email or web address] and click on Create Your Account. Then, follow the directions to complete the online form. Youll be asked for your [facility] number which you can find at the top of this document. ED Tests and Procedures: Order Status Stool Occult Blood x1-Diagnostic Completed CBC (includes Auto Differential) Completed Urinalysis with Culture if Indicated Completed Automated Diff-5 Part Completed Discharge Prescriptions & Home Medications: Medication/Strength Dose Route Frequency Indications/Special Instructions/Comments/Notes ranitidine (ranitidine 150 mg oral tablet) 150 mg Oral once a day (at bedtime) ascorbic acid (ascorbic acid 500 mg oral tablet) 500 mg Oral two times a day simvastatin (simvastatin 10 mg oral tablet) 10 mg Oral once a day (at bedtime) *ferrous gluconate (ferrous gluconate 325 mg (36 mg elemental iron) oral tablet) 325 mg Oral two times a day *traZODone (traZODone 50 mg oral tablet) 25 mg Oral once a day (at bedtime) as needed for Sleep *saccharomyces boulardii lyo (saccharomyces boulardii lyo 250 mg oral capsule) 250 mg Oral two timesa day raloxifene (raloxifene 60 mg oral tablet) 60 mg Oral once a day orphenadrine (orphenadrine 100 mg oral tablet, extended release) 100 mg Oral as needed aspirin (aspirin 81 mg oral delayed release tablet) 81 mg Oral once a day multivitamin with minerals (Centrum Silver Women's oral tablet) cholecalciferol (Vitamin D3 1000 intl units oral tablet) 1,000 IntU Oral once a day addfb3* You have let us know that you [...] nurse or physician. Patient Signature or Responsible Democrat/Relationship Date Time Provider Signature Date Time IMPORTANT: [...] nurse or physician. Patient Signature or Responsible Democrat/Relationship Date Time Provider Signature Date Time This document has images extracted. Please consider using [employer] for all your patient education needs. Source: [employer] Document Id: [id number] Elsi Mantilla, VICKIE, C.N.P., M.S.N. - 08/20/2015 8:37 PM CDT ED Depart Summary [facility] Emergency Department Clinical Discharge Summary PERSON INFORMATION Name KAROLINE HALEY Age 79 Years 1935 12:00 AM Sex Female Language Yemeni PCP BRITNEY BALDWIN MD Marital Status Visit Id Visit Reason Rectal bleed; BLEEDING FROM [facility] Special[facility] Enc Type Emergency Med Service Emergency Medicine Referred by Track Group MAN ED Discharge 08/20/2015 8:27 PM Tracking Id [id number] Checkout 08/20/2015 8:27 PM Checkin 08/20/2015 6:22 PM Acuity 4 -Less Urgent Dispo Type * Discharged to Home or Self Care Arrival 08/20/2015 6:22 PM Reg Status LOS 000 02:05 Address: [address] [place] [phone] Comment: PROVIDER INFORMATION Provider Role Provider Contact Time ELSI MANTILLA MEAT CURER Nurse 08/20/15 18:33 JORDAN HOLBROOK MD ED Provider 08/20/15 19:13 ROXANNE ORELLANA DO ED Provider 08/20/15 19:40 DIAGNOSIS Bleeding Rectal Comment: PATIENT EDUCATION INFORMATION Instructions: ANAL FISSURE (Adult) (Custom) Follow up: With: Address: When: BRITNEY BALDWIN [address] [place] [id number] [facility] () Within 3 - 5days Comments: Follow up with your primary within the week for a recheck. If it is an anal fissure, it should heal in days to weeks. For passing out or near passing out, increase in the amount of blood you see, blackor tarry stools, coffee ground colored vomit or any further concerns, return to the ER Source: [facility] [employer] Document Id: [id number] documented in this encounter Medications at Time of Discharge Medication Sig Dispensed Refills Start Date End Date cholecalciferol (VITAMIN Take 1,000 Units 0 11/14 D3) 1,000 Unit capsule by mouth daily. geriatric Take 1 tablet by 0 01/30/2015 [id number] tablet mouth daily. simvastatin (ZOCOR) 10 mg Take 10 mg by 0 015 tablet mouth at bedtime. raNITIdine (ZANTAC) 150 mg 150 mg. 0 5 07/23/2020 tablet documented as of this encounter ED Notes Elsi Mantilla APRN, C.N.P., M.S.N. - 08/20/2015 8:27 PM CDT ED Disposition Summary ED Disposition Summary Entered On: 08/20/2015 20:34 CDT Performed On: 08/20/2015 20:27 CDT by ELSI MANTILLA RN ED Disposition Summary Present in Room During Exam/Procedure : Daughter Mode of Discharge : Ambulatory Transportation : Private vehicle Printed Discharge Instructions Given to Patient : Yes Patient Status at Discharge from ED : Unchanged ELSI MANTILLA RN - 08/20/2015 20:34 CDT Source: [employer] Document Id: [id number] CDT!7 Elsi Mantilla APRN C.N.PXenia, M.S.N. - 08/20/2015 8:27 PM CDT ED Education ED Education Entered On: 08/20/2015 20:34 CDT Performed On: 08/20/2015 20:27 CDT by ELSI MANTILLA RN Education ED Education Grid Topics : Activity limitations/expectations, Diagnostic results, Discharge instructions/Medication list, Disease process, Importance of follow-up visits, Nutrition/Diet, When to call health care provider Individuals Taught : Patient, Daughter Barriers to Learning : None evident Teaching Method : Explanation, Printed materials Teaching Evaluation : Verbalizes understanding ELSI MANTILLA RN - 08/20/2015 20:34 CDT Source: [employer] Document Id: [id number] CDT!9 Elsi Mantilla, VICKIE, C.N.P., M.S.N. - 08/20/2015 8:15 PM CDT ED Nurse Reassess ED Nurse Reassess Entered On: 08/20/2015 20:33 CDT Performed On: 08/20/2015 20:15 CDT by ELSI MANTILLA RN Pain Assessment Pain Symptoms : No ELSI MANTILLA RN - 08/20/2015 20:31 CDT Comfort Measures Comfort Measures Grid Comfortable Environment : Yes Distraction : Yes Encourage Visitors : Yes Quiet Environment : Yes Rest : Yes ELSI MANTILLA RN - 08/20/2015 20:31 CDT Resp Reassess Respiratory Patient Stated Symptoms : None Distress : None Airway : Patent Respiratory Pattern : Regular Respirations : Unlabored Cough : None ELSI MANTILLA RN - 08/20/2015 20:31 CDT CV Reassess CV Patient Stated Symptoms : None Heart Rhythm : Regular ELSI MANTILLA RN - 08/20/2015 20:31 CDT Neuro Reassess Last Well Time Known : Not applicable Orientation : Oriented x 3 Characteristics of Speech : Clear Level of Consciousness : Alert Neuro Patient Stated Symptoms : None Gait : Steady ELSI MANTILLA RN - 08/20/2015 20:31 CDT Marine Coma Eye Opening Response Chevak : Spontaneously Best Verbal Response [place] : Oriented Best Motor Response Marine : Obeys simple commands Marine Coma Score : 15 ELSI MANTILLA RN - 08/20/2015 20:31 CDT GI Reassess GI Patient Stated Symptoms : Stools, black/bloody ELSI MANTILLA RN - 08/20/2015 20:31 CDT /OB Reassess Patient Stated Symptoms : None ELSI MANTILLA RN - 08/20/2015 20:31 CDT Source: [employer] Document Id: [id number] CDT!36 Roxanne Orellana D.O. - 08/20/2015 8:11 PM CDT Addendum *ED Document Contains Addenda Patient: KAROLINE HALEY Age: 79 years Sex: Female : 1935 Author: ROXANNE ORELLANA DO Attachments: None Associated Diagnosis: Bleeding Rectal Medical Decision Making Documents reviewed:Emergency department nurses' notes. Results review:Lab results : Lab View 08/20/2015 19:22 CDT Hgb 12.5 g/dL Hct 38.8 % WBC 5.8 x10(9)/L RBC 4.25 x10(12)/L MCV 91.3 fL RDW 14.7 % Platelet 231 x10(9)/L Neutro Absolute 2.57 10(9)/L Lymph Absolute 2.24 x10(9)/L [place] Absolute 0.77 x10(9)/L Eos Absolute 0.20 x10(9)/L Baso Absolute 0.03 x10(9)/L Differential? Auto 08/20/2015 19:10 CDT UA Color Yellow UA Clarity Clear UA Spec Grav 1.015 UA pH 5.5 UA Protein Negative mg/dL UA Glucose Negative mg/dL UA Ketones Negative mg/dL UA Bili Negative UA Urobilinogen 0.2 mg/dL UA Blood Negative UA Nitrite Negative UA Leuk Est Negative UR WBC Occ-3 /HPF UR RBC None Seen /HPF . Physical Examination Vital Signs: Oxygen saturation. General: Alert and no acute distress. Skin: Warm and dry. Head: Normocephalic and atraumatic. Neck: Supple. Cardiovascular: Regular rate and rhythm and Normal peripheral perfusion. Respiratory: Lungs are clear to auscultation, respirations are non-labored and breath sounds are equal. Gastrointestinal: Soft, Nontender, Non distended and Rectal exam: Normal tone, stool color brown, nohemorrhoids. Musculoskeletal: Normal ROM. normal strength. Neurological: Alert and oriented to person, place, time, and situation and No focal neurological deficit observed. Psychiatric: Cooperative. exam: no blood in introitus on speculum exam Reexamination/ Reevaluation her blood count is normal. UA negative. no obvious blood on vaginal or rectal exams. With her copious diarrhea, she likely has a small anal fissure causing the drops of blood visible on her underwear and when she wipes. Guaiac is positive, but stool was brown, which is consistent with this. However, Idid tell her that she will need to f/u with her primary doctor for a recheck--she may need GI and/orOB/WEBMASTER referral for further testing. Return precautions explained and understood Impression and Plan Diagnosis Bleeding Rectal (Discharge, Medical) Plan Condition: Stable. Disposition: Discharged: to home. Follow up with: BRITNEY BALDWIN Within 3 - 5 days Follow up with your primary within the week for a recheck. If it is an anal fissure, it should heal in days to weeks. For passing out or near passing out, increase in the amount of blood you see, black or tarry stools, coffee ground colored vomit or any further concerns, return to the ER. Electronically Signed By: ROXANNE ORELLANA DO On: 08/21/2015 12:10 AM Modified by and Electronically Signed by: ROXANNE ORELLANA DO On: 08/21/2015 12:10 AM Source: [employer] Document Id: [id number]} Elsi Mantilla APRN, C.N.P., M.S.N. - 08/20/2015 7:15 PM CDT ED Nurse Reassess ED Nurse Reassess Entered On: 08/20/2015 19:24 CDT Performed On: 08/20/2015 19:15 CDT by ELSI MANTILLA RN Pain Assessment Pain Symptoms : No ELSI MANTILLA RN - 08/20/2015 19:23 CDT Comfort Measures Comfort Measures Grid Comfortable Environment : Yes Distraction : Yes Encourage Visitors : Yes Quiet Environment : Yes Rest : Yes ELSI MANTILLA RN - 08/20/2015 19:23 CDT Patient Response : Up to bathroom then resting in bed with family present ELSI MANTILLA RN - 08/20/2015 19:23 CDT Resp Reassess Respiratory Patient Stated Symptoms : None Distress : None Airway : Patent Respiratory Pattern : Regular Respirations : Unlabored Cough : None ELSI MANTILLA RN - 08/20/2015 19:23 CDT CV Reassess CV Patient Stated Symptoms : None Heart Rhythm : Regular ELSI MANTILLA RN - 08/20/2015 19:23 CDT Neuro Reassess Last Well Time Known : Not applicable Orientation : Oriented x 3 Characteristics of Speech : Clear Level of Consciousness : Alert Neuro Patient Stated Symptoms : None Gait : Steady ELSI MANTILLA RN - 08/20/2015 19:23 CDT Marine Coma Eye Opening Response Marine : Spontaneously Best Verbal Response Chevak : Oriented Best Motor Response Chevak : Obeys simple commands Marine Coma Score : 15 ELSI MANTILLA RN - 08/20/2015 19:23 CDT GI Reassess GI Patient Stated Symptoms : Stools, black/bloody ELSI MANTILLA Hoang RN - 08/20/2015 19:23 CDT /OB Reassess Patient Stated Symptoms : None Urine Description : Clear Urine Color : Yellow /OB Note : Urine sample collected via speci-cath, urine clear and pale yellow ELSI MANTILLA RN - 08/20/2015 19:23 CDT Source: [employer] Document Id: [id number] CDT!40 Jordan Holbrook M.D. - 08/20/2015 7:14 PM CDT Rectal bleed Patient: KAROLINE HALEY Age: 79 years Sex: Female : 1935 Author: JORDAN HOLBROOK MD Attachments: None Basic Information Time seen: Date & time 08/20/2015 19:15:00. History source: Patient. Arrival mode: Private vehicle, walking. History limitation: None. Additional information: Chief Complaint from Nursing Triage Note : Chief Complaint Description 08/20/2015 18:26 CDT Chief Complaint Description Patient reports one episode of rectal bleeding about 1800 this evening when passing stool. Blood on the tissue but not the stool. A small speck of blood noted on the tissue. Blood on tissue was bright red. . History of Present Illness The patient presents with Bleeding after wiping. The onset was just prior to arrival. The course/duration of symptoms is unknown. Vomiting: none. 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 and The patient describes a bowel movement with apparently reasonably normal stool consistency and effort. She wiped herself but did not notice any blood. Thereafter she had to urinate and she urinated as a separate event. She wiped herself after urinating and noted that she had some blood on the paper. She also shortly after noted 1 drop of blood in her undergarments. She contacted her children and was brought in for further evaluation. She does not think that she has had any bleeding from the vagina or vaginal discharge. She notes a slight dysuria and denies any problems with constipation. Sometime in the last 7 at 10 days she was apparently placedon some large green capsules (Keflex?) And after 3 pills she had to stop taking the medication because she developed significant diarrhea. She has had difficulties with recurrent urinary tract infections. The last urinary tract infection approximately a year ago and was complicated with with urosepsis. This necessitated her being admitted for 10 days and then transferred to Transitional Care for an additional period of recovery. She currently denies any orthostatic symptomatology, dizziness, or other symptoms of abdominal discomfort.. The exacerbating factor is none. The relieving factor is none. Review of Systems Constitutional symptoms: Negative except as documented in HPI, but no fever or no chills. Skin symptoms: Negative except as documented in HPI, but no rash. ENMT symptoms: Negative except as documented in HPI. Respiratory symptoms: Negative except as documented in HPI. Cardiovascular symptoms: No chest pain. Gastrointestinal symptoms: No abdominal pain, no nausea, no vomiting or no diarrhea. Genitourinary symptoms: Dysuria and hematuria, but no vaginal bleeding or no vaginal discharge. Musculoskeletal symptoms: Negative except as documented in HPI. Neurologic symptoms: No headache. Psychiatric symptoms: Anxiety. Allergy/immunologic symptoms: Negative except as documented in [...] 397.0) Depression NOS (ICD-9-CM 311). Surgical history: No active procedure history items have been selected or recorded.. Family history: No family history items have been selected or recorded.. Social history: Alcohol use: Denies, Tobacco use: Denies, Occupation: Retired, Family/social situation: , lives alone. 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 Physical Examination Vital Signs: Vital Signs 08/20/2015 18:26 CDT Temperature Core 36.9 DegC Peripheral Pulse Rate 89 /min Respiratory Rate 16 /min SpO2 98 % Limb Alert Question No Systolic Blood Pressure 157 mmHg HI Diastolic Blood Pressure 63 mmHg Mean Arterial Pressure 94 mmHg BP Location Right upper , Measurements 08/20/2015 18:26 CDT Height 170 cm Height Source Stated Dosing Weight 69.00 kg NA Estimated Weight 69 kg , SpO2 08/20/2015 18:26 CDT SpO2 98 % . Medical Decision Making OrdersLaunch Orders Laboratory: Urinalysis with Culture if Indicated (Order Processing): Stat, 08/20/2015 19:17 CDT, Once, Urine, Cath (Straight or Initial) CBC (includes Auto Differential) (Order Processing): Stat, 08/20/2015 19:17 CDT, Once. Impression and Plan Plan Disposition: Patient care transitioned to: Time: 08/20/2015 19:33:00, ROXANNE ORELLANA DO. Electronically Signed By: JORDAN HOLBROOK MD On: 08/20/2015 07:33 PM Modified by and Electronically Signed by: JORDAN HOLBROOK MD On: 08/20/2015 07:33 PM Source: [facility] POWERCHART Document Id: [id number]} Elsi Mantilla APRN, C.N.P., M.S.N. - 08/20/2015 6:26 PM CDT ED Primary Assessment Document Has Been Updated ED Primary Assessment Entered On: 08/20/2015 18:33 CDT Performed On: 08/20/2015 18:26 CDT by ELSI MANTILLA RN Reason For Visit (As Of: 08/20/2015 18:33:03 CDT) Problems(Active) Chronic Renal Failure Stage IV GFR 15-29 (ICD-9-CM :585.4 ) Name of Problem: Chronic Renal Failure Stage IV GFR 15-29 ; Recorder: JORDAN HOLBROOK MD; Confirmation: Confirmed ; Classification: Medical; Code: 585.4 ; Contributor System: PowerChart ; Last Updated: 10/19/2014 21:38 CDT ; Life Cycle Date: 10/19/2014 ; Life Cycle Status: Active ; Vocabulary: ICD-9-CM Depression NOS (ICD-9-CM :311 ) Name of Problem: Depression NOS ; Recorder: JORDAN HOLBROOK MD; Confirmation: Confirmed ; Classification: Medical ; Code: 311 ; Contributor System: PowerChart ; Last Updated: 10/19/2014 21:39 CDT ; Life Cycle Date: 10/19/2014 ; Life Cycle Status: Active ; Vocabulary: ICD-9-CM Disease Gastroesophageal Reflux (GERD JAMEY) (ICD-9-CM :530.81 ) Name of Problem: Disease Gastroesophageal Reflux (GERD JAMEY) ; Recorder: JORDAN HOLBROOK MD; Confirmation: Confirmed ; Classification: Medical ; Code: 530.81 ; Contributor System: PowerChart ; Last Updated: 10/19/2014 21:37 CDT ; Life Cycle Date: 10/19/2014 ; Life Cycle Status: Active ; Vocabulary: ICD-9-CM Hypertension (HTN) Essential NOS (ICD-9-CM :401.9 ) Name of Problem: Hypertension (HTN) Essential NOS ; Recorder: JORDAN HOLBROOK MD; Confirmation: Confirmed ; Classification: Medical ; Code: 401.9 ;Contributor System: PowerChart ; Last Updated: 10/19/2014 21:37 CDT ; Life Cycle Date: 10/19/2014 ; Life Cycle Status: Active ; Vocabulary: ICD-9-CM 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 ) Name of Problem: Regurgitation Tricuspid NOS ; Recorder: JORDAN HOLBROOK MD; Confirmation: Confirmed ; Classification: Medical ; Code: 397.0 ; Contributor System: PowerChart ; Last Updated: 10/19/2014 21:38 CDT ; Life Cycle Date: 10/19/2014 ; Life CycleStatus: Active ; Vocabulary: ICD-9-CM Diagnoses(Active) Rectal bleed Date: 08/20/2015 ; Diagnosis Type: Reason For Visit ; Confirmation: Complaint of ; Clinical Dx: Rectal bleed ; Classification: Medical ; Clinical Service: Emergency medicine ; Code: PNED ;Probability: 0 ; Diagnosis Code: [id number] Triage Chief Complaint Description : Patient reports one episode of rectal bleeding about 1800 this eveningwhen passing stool. Blood on the tissue but not the stool. A small speck of blood noted on the tissue. Blood on tissue was bright red. Information Given By : Patient, Daughter Present in Room During Exam/Procedure : Daughter Mode of Arrival ED : Private vehicle Track : Medical Languages : Yemeni Vital Signs Assessed : Yes GCS Assessed : Yes Treatments Prior to Arrival : None Is Patient Female and 13-50 no hysterectomy : No ELSI MANTILLA RN - 08/20/2015 18:26 CDT Vital Signs Temperature Core : 36.9 DegC(Converted to: 98.4 DegF) Limb Alert Question : No Peripheral Pulse Rate : 89 /min Respiratory Rate : 16 /min Systolic Blood Pressure : 157 mmHg (HI) Diastolic Blood Pressure : 63 mmHg NIBP Mean : 94 mmHg BP Location : Right upper extremity SpO2 : 98 % Oxygen Saturation Monitoring Frequency : Intermittent Oxygen Therapy : Room air Height : 170 cm(Converted to: 5 ft 7 inch(es)) Height Source : Stated Estimated Weight : 69 kg Estimated Weight Conversion to Pounds : 151.8 lb ELSI MANTILLA RN - 08/20/2015 18:26 CDT [place] Coma Eye Opening Response Marine : Spontaneously Best Verbal Response [place] : Oriented Best Motor Response [place] : Obeys simple commands Marine Coma Score : 15 ELSI MANTILLA RN - 08/20/2015 18:26 CDT Pain Assessment Pain Symptoms : No ELSI MANTILLA - 08/20/2015 18:26 CDT JOANA JOANA Level 1 : No JOANA Level 2 : No JOANA Level 3 : One ELSI MANTILLA - 08/20/2015 18:26 CDT DCP GENERIC CODE Tracking Acuity : 4 -Less Urgent Tracking Group : MAQN ED ELSI MANTILLA - 08/20/2015 18:26 CDT Allergy (As Of: 08/20/2015 18:33:03 CDT) Allergies (Active) Septra Estimated Onset Date: Unspecified ; Created By: STEFANIE BALDWIN MD; Reaction Status: Active ; Category: Drug ; Substance: Septra ; Type: Allergy ; Updated By: STEFANIE BALDWIN MD; Reviewed Date: 08/20/2015 18:29 CDT zinc acetate containing compounds Estimated Onset Date: Unspecified ; Reactions: rash ; Created By: GAGAN TRAN; Reaction Status: Active ; Category: Drug ; Substance: zinc acetate containing compounds ; Type: Allergy ; Updated By: GAGAN TRAN; Reviewed Date: 08/20/2015 18:29 CDT ID Screen Drug Resistant Organism : No Travel Within Last 21 Days : No ELSI MANTILLA - 08/20/2015 18:26 CDT TB Symptoms Grid Bloody Sputum : No Fatigue : No Fever : No Loss of Appetite : No Night Sweats : No Persistent Cough Greater Than 3 Weeks : No Weight Loss : No ELSI MANTILLA - 08/20/2015 18:26 CDT Respiratory Airway : Patent Respirations : Unlabored Respiratory Pattern : Regular Oxygen Therapy : Room air ELSI MANTILLA - 08/20/2015 18:26 CDT Cardiovascular Heart Rhythm : Regular Skin Color : [place] Skin Description : Normal Skin Temperature : Warm ELSI MANTILLA - 08/20/2015 18:26 CDT Neurological Last Well Time Known : Not applicable Level of Consciousness : Alert Orientation : Oriented x 3 Characteristics of Speech : Clear Neuro Patient Stated Symptoms : None Gait : Steady ELSI MANTILLA - 08/20/2015 18:26 CDT ED Psychosocial Affect/Behavior : Calm, Cooperative, Appropriate Domestic Abuse Concerns : Unable to Screen Behavioral Health Screen/Safety Assmt : No ED Psychosocial Deviation : Family in room ELSI MANTILLA RN - 08/20/2015 18:26 CDT Gastrointestinal Nutrition ED : Adequate GI Detailed Assessment : Yes ELSI MANTILLA RN - 08/20/2015 18:26 CDT GI Detailed GI Patient Stated Symptoms : Stools, black/bloody Bowel Movement Last Date : 08/20/2015 CDT ELSI MANTILLA RN - 08/20/2015 18:26 CDT /OB Assessment Patient Stated Symptoms : None ELSI MANTILLA RN - 08/20/2015 18:26 CDT Musculoskeletal Fall Prevention Education Provided : NA ELSI MANTILLA RN - 08/20/2015 18:26 CDT Social Habits Smoking Status : Former smoker Tobacco 2A : Yes Tobacco Use/Currently Using : No Tobacco Use/Last 30 Days : No Tobacco Use/Last 12 months : No ELSI MANTILLA RN - 08/20/2015 18:26 CDT Source: [employer] Document Id: [id number] CDT!91 documented in this encounter Miscellaneous Notes Miscellaneous - Elsi Mantilla, VICKIE, C.N.P., M.S.N. - 08/20/2015 8:27 PM CDT Valuables/Belongings Valuables/Belongings Entered On: 08/20/2015 20:35 CDT Performed On: 08/20/2015 20:27 CDT by ELSI MANTILLA RN Valuables/Belongings Belongings Sent Home With : All belongings sent with patient Home Medication Disposition : None brought in with patient ELSI MANTILLA RN - 08/20/2015 20:35 CDT Source: [employer] Document Id: [id number] CDT!4 Miscellaneous - Conversion, Historical Provider Ser - 08/20/2015 8:27 PM CDT Coding Summary-Paper Based CODING DATE: 08/27/2015 FINAL [facility] STATUS: * Discharged to Home or Self Care PAYOR: Medicare ADMIT DX: K62.5 Hemorrhage of anus and rectum REASON FOR VISIT DX: K62.5 Hemorrhage of anus and rectum FINAL DX: PRINCIPAL: K62.5 Hemorrhage of anus and rectum SECONDARY: R31.9 Hematuria, unspecified R30.0 Dysuria F41.9 Anxiety disorder, unspecified I12.9 Hypertensive chronic kidney disease with stage 1 through stage 4 chronic kidney disease, or unspecified chronic kidney disease N18.4 Chronic kidney disease, stage 4 (severe) Z88.1 Allergy status to other antibiotic agents status Z87.891 Personal history of nicotine dependence PROCEDURES DOCTOR NAME DATE NOTE: The code number assigned matches the documented diagnosis and / or procedure in the patient's chart. However, the narrative phrase printed from the coding software may appear abbreviated, or result in slightly different terminology. Coded By: CHANO VERA Date Saved: 08/27/2015 07:52 am Source: [employer]Board Document Id: [id number] Miscellaneous - Elsi Mantilla, VICKIE, C.N.P., M.S.N. - 08/20/2015 6:22 PM CDT Facility Charge Ticket 2.0 11.0 DX Facility Charge Ticket 2.0 11.0 DX Entered On: 08/20/2015 20:36 CDT Performed On: 08/20/2015 18:22 CDT by ELSI MANTILLA RN Facility Charge Ticket 2.0 11.0 DX ED Other Charges : Standard ED Encounter TVL Level Translated RTF : Rectal bleed TVL:3 TVL Level for Facility Charge Ticket : Level 3 Arrival Mode Calc : 1 Mode of Arrival ED : Private vehicle [facility] Mode of Arrival Interpreted : Standard [facility] Process Management : None Order Management RTF : Laboratory CBC (includes Auto Differential),08/20/15 19:17,JORDAN HOLBROOK MD Completed Urinalysis with Culture if Indicated,08/20/15 19:17,JORDAN HOLBROOK MD Completed Automated Diff-5 Part,08/20/15 19:25,JORDAN HOLBROOK MD Completed Stool Occult Blood x1-Diagnostic,08/20/15 19:59,ROXANNE ORELLANA DO Completed [facility] Order Management : Lab tests 30 Minutes Critical Care : No Nursing Notes RTF : Nursing Notes ED Primary Assessment,08/20/15 18:26,ELSI MANTILLA MEAT CURER Nurse Reassess,08/20/15 20:15,ELSI MANTILLA MEAT CURER Nurse Reassess,08/20/15 19:15,ELSI MANTILLA RN [facility] Nursing Assessment : Triage and 1-2 nursing assessments [facility] Disposition : Discharge Disposition RTF : discharge [facility] Total Points with Diagnosis Control : 6 [facility] Visit Level : 90008 Level 3 Treatments Prior to Arrival : None ELSI MANTILLA RN - 08/20/2015 20:36 CDT Source: [facility] [employer] Document Id: [id number] CDT!19 documented in this encounter Plan of Treatment Not on filedocumented as of this encounter Procedures Procedure Name Priority Date/Time Associated Diagnosis Comme nts POCT HEMOCCULT - Routine 08/20/2015 8:00 PM Resul ts for this NURSING CDT procedure are i n the results section. AUTOMATED Routine 08/20/2015 7:22 PM Results f or this DIFFERENTIAL, B CDT procedure ar e in the results section. CBC WITH Routine 08/20/2015 7:22 PM Results f or this DIFFERENTIAL, B CDT procedure ar e in the results section. URINALYSIS, Routine 08/20/2015 7:10 PM Results f or this MIDSTREAM, WITH CDT procedure ar e in CULTURE IF the results INDICATED section. documented in this encounter Results (ABNORMAL) Hemmoccult, POCT (nursing) (08/20/2015 8:00 PM CDT) [facility] Method Time Signature HXOccult Bld Positive (A) Negative POWERCHART Stl I Specimen (Source) Anatomical Collection Method Collection Time Re ceived Time Location / / Volume Laterality Stool 08/20/2015 8:00 PM CDT Roxanne Orellana D.O. LAB POCT ORDERABLES-MANUAL Performing Organization Address City/[facility]/ZIP Code Phon e Number POWERCHART Automated Differential (08/20/2015 7:22 PM CDT) athologist Signature Absolute 2.57 1.70 - POWERCHART Neutrophils 7.00 109L Lymphocytes 2.24 0.90 - POWERCHART 2.90 X109L Monocytes 0.77 0.30 - POWERCHART 0.90 X109L Eosinophils 0.20 0.05 - POWERCHART 0.50 X109L Absolute 0.03 0.00 - POWERCHART Basophil 0.30 X109L Specimen Anatomical Collection Method Collection Time Receive d Time (Source) Location / / Volume Laterality Blood 08/20/2015 7:22 PM 6 7:22 CDT PM CDT Jordan Holbrook M.D. LAB BLOOD ADD-ON Performing Organization Address [facility] Phon e Number POWERCHART CBC with Differential (08/20/2015 7:22 PM CDT) athologist Signature Leukocytes 5.8 3.5 - 10.5 POWERCHART X109L Erythrocytes 4.25 3.90 - POWERCHART 5.03 [id number] Hemoglobin 12.5 12.0 - POWERCHART 15.5 GDL Hematocrit 38.8 34.9 - POWERCHART 44.5 MCV 91.3 81.6 - POWERCHART 98.3 FL HX RDW 14.7 11.9 - POWERCHART 15.5 Platelet Count 231 150 - 450 POWERCHART X109L HXDifferential? Auto POWERCHART Specimen (Source) Anatomical Collection Method Collection Time Re ceived Time Location / / Volume Laterality Blood 08/20/2015 7:22 PM CDT Jordan Holbrook M.D. LAB BLOOD ADD-ON Performing Organization Address City/[facility]/ZIP Code Phon e Number POWERCHART Urinalysis, Midstream, with culture if indicated (08/20/2015 7:10 PM CDT) [facility] gist Method Time Signature HXUr Color Yellow Colorless POWERCHART Clarity Clear Clear POWERCHART Glucose Negative Negative MGDL POWERCHART HXBILIRUBIN Negative Negative POWERCHART Ketones, QL(U) Negative Negative MGDL POWERCHART Specific 1.015 POWERCHART [place], POCT, U Comment: Reference Range Specific [place]: 1.000-1.035 HXBLOOD Negative Negative POWERCHART pH, POCT, Urine 5.5 <5.0 POWERCHART Comment: Reference Range pH: 5.0-8.0 Protein, Ur, Dip Negative Negative MGDL POWERCHAR T Urobilinogen 0.2 0.2 MGDL POWERCHART Comment: Reference Range Urobilinogen: 0.2-1.0 mg/dL HXNITRITE Negative Negative POWERCHART Leukocyte Esterase Negative Negative POWERCHART HXUR WBC. Occ-3 None Seen HPF POWERCHART HXUR RBC. None Seen None Seen HPF POWERCHART Specimen (Source) Anatomical Collection Method Collection Time Re ceived Time Location / / Volume Laterality Urine, Catheter 08/20/2015 7:10 PM CDT Jordan Holbrook M.D. LAB URINE ORDERABLES Performing Organization Address City/State/ZIP Code Phon e Number POWERCHART documented in this encounter Visit Diagnoses Not on filedocumented in this encounter
--- OUTSIDE RECORDS SUMMARY | 2022-01-19 14:58 | XMS_ITS | Encounter Summary ---
:1935 Author Organization [facility] Address [address] [place] [address] Care Team Providers Name Role Phone Unavailable Primary Care Provider Unavailable Encounter Details Date Type Department Care Team Description 05/22/2013 Hospital Encounter HX [facility] Guido Finley M.D. [address] [place] [address] [phone] (Wo rk) Social History Tobacco Use Types Packs/Day Years Used Date Smoking Tobacco: Never Assessed Sex Assigned at Date Recorded Not on file documented as of this encounter Last Filed Vital Signs Vital Sign Reading Time Taken Comments Blood Pressure 130/61 05/22/2013 8:30 PM [facility] Pulse - - Temperature - - Respiratory Rate 16 05/22/2013 8:30 PM [employer] Oxygen Saturation - - Inhaled Oxygen Concentration - - Weight - - Height 170 cm (5' 6.93) 05/22/2013 7:50 PM [employer] Body Mass Index - - documented in this encounter Discharge Summaries Elsi Mantilla, VICKIE, C.N.P., M.S.N. - 05/22/2013 8:53 PM CST ED Discharge Instructions [facility] [address] [place] [address] Name: KAROLINE NUÑEZ Date of : 1935 12:00 AM Visit Date: 05/22/2013 7:41 PM [facility] Number: [id number] Address: [address] [place] [address] [phone] Primary Care Provider: DARRICK MENDES MD IMPORTANT: [facility] in [place] would like to thank you for allowing us to assistyou with your healthcare needs. The following includes patient education materials and information regarding your injury/illness. Chief Complaint: Chest pain; CHEST PAIN Follow-Up Instructions: With: Address: When: DARRICK MENDES [address] [place] [phone] Business (1) Within 5 - 7 days Comments: as needed if symptoms return to discuss further evaluation Patient Education Materials: [id number] GERD (Adult) The esophagus is a tube that carries food from the mouth to the stomach. A valve at the lower end ofthe esophagus prevents stomach acid from flowing upward. If this valve does not work properly, acid from the stomach enters the esophagus. If this occurs over and over, the acid will injure the lining of the esophagus. This condition is called GERD (gastroesophageal reflux disease) or acid reflux. When stomach acid flows upward into the esophagus, it causes burning, pressure or sharp pain in the upper abdomen or mid to lower chest. The pain can spread to the neck, back, or shoulder, similar to heart pain (angina). There may be belching, an acid taste in the back of the throat, chronic cough, or sore throat or hoarseness. GERD symptoms often occur during the day after a big meal, but it can also occur at night whenlying down. Smoking, as well as drinking alcohol, increases the risk of GERD. GERD is a chronic condition. Once it begins, it is often lifelong. Treatment includes changes in eating habits and the use of acid eleonora medications to decrease the amount of acid in the stomach. Symptoms often improve with treatment, but if treatment is stopped, the symptoms usually return after a few months. So most persons with GERD will need to continue treatment. HOME CARE: ?? Take the prescribed acid eleonora medication for the full course of treatment even if you begin tofeel better sooner. This medication can take up to several days to fully control your symptoms. If you cant afford the prescribed medication, you can try [id number]-[id number] acid blockers, such as Pepcid AC, Tagamet, Zantac, or Aciphex. If these do not relieve your symptoms, a stronger acid-eleonora can be tried, such as Prilosec OTC. ?? You can use antacids, such as Tums, Rolaids, Mylanta, or Maalox, for pain. This will be useful the first few days after starting acid blockers when the blockers havent started working yet. Follow the directions on the label. Liquid antacids may work better than tablets. Note that antacids can interfere with absorption of certain medications. Specifically, do not take Tagamet (cimetidine), Zantac (ranitidine), or Carafate (sucralfate) within 1 hour of taking an antacid. Talk with your pharmacist if you have any questions. ?? Limit or avoid fatty, fried, and spicy foods, as well as coffee, chocolate, mint, and foods with high acid content such as tomatoes and citrus fruit and juices (orange, grapefruit, lemon). ?? Avoid alcohol and smoking. ?? Dont eat large meals, especially at night. Frequent, smaller meals are best. Do not lie down right after eating. And dont eat anything 3 hours before going to bed. ?? If you are overweight, losing weight will reduce symptoms. Women should not wear corsets or girdles because this increases pressure on the stomach and worsens reflux. ?? If your symptoms occur during sleep, use a foam wedge to elevate your upper body (not just your head.) Or, place 4 blocks under the head of your bed. FOLLOW UP with your doctor or as advised by our staff. Further testing may be needed. If you do not begin to improve over the next 4 days, contact your doctor. If you had an x-ray, CT scan, or ECG (electrocardiogram), it will be reviewed by a specialist. Youll be notified of any new findings that affect your care. GET PROMPT MEDICAL ATTENTION if any of the following occur: ?? Stomach pain gets worse or moves to the lower right abdomen (appendix area) ?? Chest pain appears or gets worse, or spreads to the back, neck, shoulder, or arm ?? Frequent vomiting (cant keep down liquids) ?? Blood in the stool or vomit (red or black in color) ?? Feeling weak or dizzy, fainting, or trouble breathing Fever of 100.4??F (38??C) or higher, or as directed by your healthcare provider ?? [phone] [place] [address]. All rights reserved. This information is not intended as a substitute for professional medical care. Always follow your healthcare professional's instructions. ED Tests and Procedures: Order Status Automated Diff-5 Part Completed EKG-Lab Completed Basic Metabolic Panel Completed rsCBC (includes Auto Differential) Completed Troponin T Completed XR Chest 1 view portable Ordered Discharge Prescriptions & Home Medications: Medication/Strength Dose Route Frequency Indications/Special Instructions/Comments/Notes omeprazole (PriLOSEC 10 mg oral delayed release capsule) 10 mg Oral once a day hydrochlorothiazide (hydrochlorothiazide 25 mg oral tablet) 25 mg Oral once a day calcium-vitamin D (Caltrate 600 + D oral tablet) 1 tab(s) Oral two times a day aspirin (aspirin 81 mg oral delayed release tablet) 81 mg Oral once a day multivitamin with minerals (Centrum Silver Women's oral tablet) orphenadrine (orphenadrine 100 mg oral tablet, extended release) 100 mg Oral two times a day cholecalciferol (Vitamin D3 1000 intl units oral tablet) 1,000 IntU Oral once a day lisinopril (lisinopril 2.5 mg oral tablet) 2.5 mg Oral once a day simvastatin (simvastatin 20 mg oral tablet) 20 mg Oral once a day (at bedtime) Attention: If you have any medications at home not on this list, DO NOT take them until you contact your provider for clarification. Give a copy of your medication list to your primary care provider. Update your medication list any time medications or doses are changed and carry your medication list at all times in case of emergency. Medication Reconciliation: Reconciliation is a process of identifying the most accurate list of all medications a patient is taking - including name, dosage, frequency, and route - and using this list to provide to the patient information about how to take those medications. KAROLINE NUÑEZ or carlos has reviewed the home medications you have listed with us. Review the following instructions: You have NOT received any prescriptions and you have told us you are not currently taking any home medications You have NOT received any prescriptions. You have been provided a discharge medications list and you may CONTINUE taking your medications as previously prescribed by your regular providers. You have received the listed prescriptions and BEGIN all listed prescriptions as directed. Since you have listed no home medications, please check with your family doctor if you are taking any other medications. You have received the listed prescriptions and BEGIN all listed prescriptions as directed. Youhave been provided a discharge medications list and you may CONTINUE all home medications as previously prescribed by your regular providers. You have received the listed prescriptions and BEGIN all listed prescriptions as directed. Youhave been provided a discharge medications list. The following CHANGES have been made to your medication list; Otherwise, CONTINUE all home medications as previously prescribed by your regular provider. IMPORTANT: We examined and treated you today [...] with a responsible republican. SUDHA France ALICE , or responsible republican have received this information and my questions have been answered. I have discussed any challenges I see with this plan with the nurse or physician. Patient Signature or Responsible Republican/Relationship Date Time Provider Signature Date Time Medication Reconciliation: Reconciliation is a process of identifying the most accurate list of all medications a patient is taking - including name, dosage, frequency, and route - and using this list to provide to the patient information about how to take those medications. KAROLINE NUÑEZ or carlos has reviewed the home medications you have listed with us. Review the following instructions: You have NOT received any prescriptions and you have told us you are not currently taking any home medications You have NOT received any prescriptions. You have been provided a discharge medications list and you may CONTINUE taking your medications as previously prescribed by your regular providers. You have received the listed prescriptions and BEGIN all listed prescriptions as directed. Since you have listed no home medications, please check with your family doctor if you are taking any other medications. You have received the listed prescriptions and BEGIN all listed prescriptions as directed. Youhave been provided a discharge medications list and you may CONTINUE all home medications as previously prescribed by your regular providers. You have received the listed prescriptions and BEGIN all listed prescriptions as directed. Youhave been provided a discharge medications list. The following CHANGES have been made to your medication list; Otherwise, CONTINUE all home medications as previously prescribed by your regular provider. IMPORTANT: We examined and treated you today [...] home with a responsible republican. I, KAROLINE NUÑEZ , or responsible republican have received this information and my questions have been answered. I have discussed any challenges I see with this plan with the nurse or physician. Patient Signature or Responsible Republican/Relationship Date Time Provider Signature Date Time This document has images extracted. Please consider using [employer] for all your patient education needs. Source: [employer] Document Id: [id number] [employer] Elsi Mantilla APRN, C.N.P., M.S.N. - 05/22/2013 8:53 PM CST ED Depart Summary [facility] Emergency Department Clinical Discharge Summary PERSON INFORMATION Name KAROLINE NUÑEZ Age 77 Years 1935 12:00 AM Sex Female Language Sinhala PCP DARRICK MENDES MD Marital Status N [id number] Visit Id Visit Reason Chest pain; CHEST PAIN Specialty Enc Type Emergency Med Service Emergency Medicine Referred by Track Group MAQN ED Discharge 05/22/2013 8:45 PM Tracking Id [id number] Checkout 05/22/2013 8:45 PM Checkin 05/22/2013 7:41 PM Acuity 3 -Urgent Dispo Type * Discharged to Home or Self Care Arrival 05/22/2013 7:41 PM Reg Status LOS 000 01:04 Address: [address] [place] [address] [phone] Comment: PROVIDER INFORMATION Provider Role Provider Contact Time GUIDO RAO MD ED Provider 05/22/13 20:33 DIAGNOSIS Comment: PATIENT EDUCATION INFORMATION Instructions: ESOPHAGEAL REFLUX (Adult) Follow up: With: Address: When: DARRICK MENDES [address] [place] [phone] [facility] (1) Within 5 - 7 days Comments: as needed if symptoms return to discuss further evaluation [facility] Document Id: [id number] [employer] documented in this encounter ED Notes Elsi Mantilla APRN, C.N.P., M.S.N. - 05/22/2013 8:45 PM CST ED Disposition Summary ED Disposition Summary Entered On: 05/22/2013 20:51 [facility] Performed On: 05/22/2013 20:45 [employer] by ELSI MANTILLA RN ED Disposition Summary Accompanied By : Daughter Mode of Discharge : Ambulatory Transportation : Private vehicle Printed Discharge Instructions Given to Patient : Yes Patient Status at Discharge from ED : Improved Comment : Discussed new medication Prilosec ELSI MANTILLA RN - 05/22/2013 20:51 [employer] Source: [employer] Document Id: [id number] [employer]!8 [employer] Elsi Mantilla APRN, C.N.P., M.S.N. - 05/22/2013 8:45 PM CST ED Education ED Education Entered On: 05/22/2013 20:52 [facility] Performed On: 05/22/2013 20:45 [employer] by ELSI MANTILLA RN Education ED Education Grid Topics : Activity limitations/expectations, Diagnostic results, Discharge instructions/Medication list, Disease process, Importance of follow-up visits, Nutrition/Diet, Pain management, When to call health care provider Individuals Taught : Patient, Daughter Barriers to Learning : None evident Teaching Method : Explanation, Printed materials Teaching Evaluation : Verbalizes understanding ELSI MANTILLA RN - 05/22/2013 20:51 [employer] Source: [employer] Document Id: [id number] [employer]!9 [employer] Elsi Mantilla APRN, C.N.Masha, M.S.N. - 05/22/2013 8:40 PM CST ED Treatments and Procedures ED Treatments and Procedures Entered On: 05/22/2013 20:51 [facility] Performed On: 05/22/2013 20:40 [employer] by ELSI MANTILLA application processor Monitoring Monitoring Lead Information Technology Analyst : Discontinued ELSI MANTILLA RN - 05/22/2013 20:51 [employer] Source: [facility] POWERCHART Document Id: [id number] [employer]!3 [employer] Guido Rao M.D. - 05/22/2013 8:33 PM CST Chest pain Patient: KAROLINE NUÑEZ Age: 77 years Sex: Female : 1935 Author: GUIDO RAO MD Attachments: None Basic Information Time seen: Immediately upon arrival. History source: Patient, daughter. Arrival mode: Private vehicle. History limitation: None. Additional information: Chief Complaint from Nursing Triage Note : Chief Complaint Description 05/22/2013 19:50 [employer] Chief Complaint Description Patient reports chest and back pain starting at about 1715 this evening following supper. Now the pain is gone. Frequent belching. . History of Present Illness The patient presents with chest pain and upper abdominal discomfort. The onset was 05/22/2013 17:15:00 . The course/duration of symptoms is resolved: after taking Rolaids (2) and Pepto bismal. Location: Central epigastric. Radiating pain: none. The character of symptoms is sharp and belching. The degree at onset was moderate. The degree at maximum was moderate. The degree at present is none. The relieving factor is antacids. Risk factors consist of hypertension. Prior episodes: none. Associated symptoms: single episode of vomiting and felt somewhat better after . Review of Systems Constitutional symptoms: Negative except as documented in HPI. ENMT symptoms: Negative except as documented in HPI. Respiratory symptoms: Negative except as documented in HPI. Cardiovascular symptoms: Negative except as documented in HPI. Gastrointestinal symptoms: Negative except as documented in HPI. Musculoskeletal symptoms: Negative except as documented in HPI. Neurologic symptoms: Negative except as documented in HPI. Psychiatric symptoms: Negative except as documented in HPI. Additional review of systems information: All other systems reviewed and otherwise negative. Health Status Allergies: Allergic Reactions (Selected) Severity Not Documented Zinc acetate containing compounds- Rash.. Past Medical/ Family/ Social History Medical history: Reviewed as documented in chart. Surgical history: No active procedure history items have been selected or recorded.. Family history: No family history items have been selected or recorded.. Social history: Family/social situation: Homeless. Physical Examination Vital Signs: Vital Signs 05/22/2013 19:50 [employer] Temperature Core 37.0 DegC Apical Heart Rate 78 /min Respiratory Rate 16 /min SpO2 97 % Systolic Blood Pressure 161 mmHg >HHI Diastolic Blood Pressure 70 mmHg Mean Arterial Pressure 100 mmHg BP Location Right upper , Measurements 05/22/2013 19:50 [facility] Height 170 cm Height Source Stated Dosing Weight 61.00 kg NA Estimated Weight 61 kg , SpO2 05/22/2013 19:50 [facility] SpO2 97 % . General: Alert and no acute distress. Skin: Warm and moist. Head: Normocephalic. Neck: Supple. Cardiovascular: Regular rate and rhythm. Respiratory: Lungs are clear to auscultation. Gastrointestinal: Soft, Nontender, Non distended and Normal bowel sounds. Neurological: Alert and oriented to person, place, time, and situation and No focal neurological deficit observed. Psychiatric: Cooperative. Medical Decision Making Electrocardiogram:Normal sinus rhythm, No ST-T changes, normal ND & QRS intervals, EP Interp. Results review:Lab results : Lab View 05/22/2013 19:55 [facility] Hgb 13.1 g/dL Hct 38.3 % WBC 7.3 x10(9)/L RBC 4.43 x10(12)/L MCV 86.5 fL RDW 14.6 % Platelet 249 x10(9)/L Neutro Absolute 4.21 10(9)/L Lymph Absolute 2.16 x10(9)/L [place] Absolute 0.70 x10(9)/L Eos Absolute <0.50 x10(9)/L Baso Absolute <0.50 x10(9)/L Differential? Auto Sodium Lvl 138 mmol/L Potassium Lvl 3.4 mmol/L LOW Chloride 100 mmol/L CO2 26 mmol/L AGAP 12 mmol/L Glucose Lvl 116 mg/dL Creatinine 1.1 mg/dL EGFR (MDRD) 49.9 LOW EGFR (MDRD) >60.0 BUN 23 mg/dL Calcium Lvl 10.0 mg/dL Troponin-T <0.010 ng/mL . Chest X-Ray:No acute disease process, interpretation by Emergency Physician. Impression and Plan Diagnosis GERD Plan Condition: Stable. Disposition: Discharged: Time 05/22/2013 20:34:00, to home. Prescriptions: Prescription Cover Machine Operator Pharmacy: PriLOSEC 10 mg oral delayed release capsule (Prescribe): 10 mg, 1 cap(s), PO, Daily, 20 cap(s). Patient was given the following educational materials: ESOPHAGEAL REFLUX (Adult). Follow up with: DARRICK MENDES Within 5 - 7 days as needed if symptoms return to discuss further evaluation. Counseled: Patient, Family, Regarding diagnosis, Regarding diagnostic results, Regarding treatment plan, Regarding prescription, Patient indicated understanding of instructions. Orders: Launch Orders Patient Care: Discharge ED Patient (Order Processing): 05/22/2013 20:36 [employer], Once. Electronically Signed By: GUIDO RAO MD On: 05/22/2013 08:49 PM Modified by and Electronically Signed by: GUIDO RAO MD On: 05/22/2013 08:49 PM Source: [facility] POWERCHART Document Id: [id number]} [employer] Elsi Mantilla APRN, C.N.P., M.S.N. - 05/22/2013 8:30 PM CST ED Nurse Reassess ED Nurse Reassess Entered On: 05/22/2013 20:51 [employer] Performed On: 05/22/2013 20:30 [employer] by ELSI MANTILLA RN Pain Assessment Pain Symptoms : No ELSI MANTILLA RN - 05/22/2013 20:50 [employer] Resp Reassess Respiratory Patient Stated Symptoms : None Distress : None Airway : Patent Respiratory Pattern : Regular Respirations : Unlabored Cough : None ELSI MANTILLA RN - 05/22/2013 20:50 [employer]DEL CV Reassess CV Patient Stated Symptoms : None Heart Rhythm : Regular Monitoring Lead : II, V1/MCL1 Cardiac Rhythm : Sinus rhythm, PAC Ectopy Frequency : Rare (1-3/min) ELSI MANTILLA RN - 05/22/2013 20:50 [employer] Neuro Reassess Last Well Time Known : Not applicable Orientation : Oriented x 3 Characteristics of Speech : Clear Level of Consciousness : Alert Neuro Patient Stated Symptoms : None Gait : Steady ELSI MANTILLA RN - 05/22/2013 20:50 [employer] Marine Coma Eye Opening Response Marine : Spontaneously Best Verbal Response Quinton : Oriented Best Motor Response Marine : Obeys simple commands Marine Coma Score : 15 ELSI MANTILLA RN - 05/22/2013 20:50 [employer] GI Reassess GI Patient Stated Symptoms : Belching ELSI MANTILLA RN - 05/22/2013 20:50 [employer]DEL /OB Reassess Patient Stated Symptoms : None ELSI MANTILLA RN - 05/22/2013 20:50 [employer]DEL [facility] Document Id: [id number] BR[employer]ION[employer]DEL!32 D [employer]DEL Elsi Mantilla APRN, C.N.P., M.S.N. - 05/22/2013 7:50 PM CST ED Primary Assessment Document Has Been Updated ED Primary Assessment Entered On: 05/22/2013 19:59 [employer] Performed On: 05/22/2013 19:50 [employer]DEL by ELSI MANTILLA RN Reason For Visit (As Of: 05/22/2013 19:59:11 [employer]DEL) Diagnoses(Active) Chest pain Date: 05/22/2013 ; Diagnosis Type: Reason For Visit ; Confirmation: Complaint of ; Clinical Dx: Chest pain ; Classification: Medical ; Clinical Service: Emergency medicine ; Code: PNED ; Probability: 0 ; Diagnosis Code: [id number] Triage Chief Complaint Description : Patient reports chest and back pain starting at about 1715 this evening following supper. Now the pain is gone. Frequent belching. Information Given By : Patient Accompanied By : Daughter Mode of Arrival ED : Private vehicle Track : Medical Languages : Sinhala Vital Signs Assessed : Yes GCS Assessed : Yes Treatments Prior to Arrival : None ELSI MANTILLA RN - 05/22/2013 19:50 [employer]DEL Vital Signs Temperature Core : 37.0 DegC(Converted to: 98.6 DegF) Apical Heart Rate : 78 /min Respiratory Rate : 16 /min Systolic Blood Pressure : 161 mmHg (>HHI) Diastolic Blood Pressure : 70 mmHg NIBP Mean : 100 mmHg BP Location : Right upper extremity SpO2 : 97 % Oxygen Saturation Monitoring Frequency : Continuous Oxygen Therapy : Room air Height : 170 cm(Converted to: 5 ft 7 inch(es)) Height Source : Stated Estimated Weight : 61 kg Estimated Weight Conversion to Pounds : 134.2 lb ELSI MANTILLA RN - 05/22/2013 19:50 [employer]DEL Quinton Coma Eye Opening Response Quinton : Spontaneously Best Verbal Response Marine : Oriented Best Motor Response Marine : Obeys simple commands Marine Coma Score : 15 ELSI MANTILLA RN - 05/22/2013 19:50 [employer]DEL Pain Assessment Pain Symptoms : Yes ELSI MANTILLA RN - 05/22/2013 19:50 [employer]DEL Pain Pain Assessment Grid Pain 1 Pain 2 Location : Chest (Comment: Lower, strtching across chest below breasts [ELSI MANTILLA RN - 05/22/2013 19:50 [employer]ION[employer]DEL] ) Upper back (Comment: Central [ELSI MANTILLA RN - 05/22/2013 19:50 [employer]OTIONAL MODEL] ) Intensity : 0 0 Comments (Comment: 11/20 initially and now ceased [ELSI MANTILLA RN - 05/22/2013 19:50 BR[employer] PROMOTIONAL MODEL] ) (Comment: Was a 10/20 initially and now ceased [ELSI MANTILLA RN - 05/22/2013 19:50 BR[employer] PROMOTIONAL MODEL] ) ELSI MANTILLA RN - 05/22/2013 19:50 BR[employer] PROMOTIONAL MODEL ELSI MANTILLA RN - 05/22/2013 19:50 [facility] PR[employer]OTIONAL MODEL JOANA JOANA Level 1 : No JOANA Level 2 : Yes ELSI MANTILLA RN - 05/22/2013 19:50 BRAND AMBASSADOR PROMOTIONAL MODEL DCP GENERIC CODE Tracking Acuity : 3 -Urgent Tracking Group : MAQN ED ELSI MANTILLA RN - 05/22/2013 19:50 BRAND [employer]BASSADOR PROMOTIONAL MODEL Allergy (As Of: 05/22/2013 19:59:12 BRAND AMBASSADOR PROMOTIONAL MODEL) Allergies (Active) zinc acetate containing compounds Estimated Onset Date: Unspecified ; Reactions: rash ; Created By: GAGAN TRAN; Reaction Status: Active ; Category: Drug ; Substance: zinc acetate containing compounds ; Type: Allergy ; Updated By: GAGAN TRAN; Reviewed Date: 05/22/2013 19:50 BRAND AMBASSADOR PROMOTIONAL MODEL ID Screen Drug Resistant Organism : No ELSI MANTILLA Hoang RN - 05/22/2013 19:50 BRAND [employer]OR PROMOTIONAL MODEL TB Symptoms Grid Bloody Sputum : No Fatigue : No Fever : No Loss of Appetite : No Night Sweats : No Persistent Cough Greater Than 3 Weeks : No Weight Loss : No ANNALEEELSI RN - 05/22/2013 19:50 BRAND [employer]ADOR PROMOTIONAL MODEL Respiratory Airway : Patent Respirations : Unlabored Respiratory Pattern : Regular Oxygen Therapy : Room air Respiratory Detailed Assessment : Yes ANNALEEELSI RN - 05/22/2013 19:50 BRAND AMBASSADOR PROMOTIONAL MODEL Resp Detailed Respiratory Patient Stated Symptoms : None Distress : None Cough : None ANNALEEELSI RN - 05/22/2013 19:50 BRAND [employer]BASS[employer]OR PROMOTIONAL MODEL Cardiovascular Heart Rhythm : Regular Skin Color : Marianne Skin Description : Normal Skin Temperature : Warm Cardiovascular Detailed Assessment : Yes Monitoring Lead : II, V1/MCL1 Monitoring Lead Information Technology Analyst : Initiated ANNALEE ELSI M RN - 05/22/2013 19:50 BRAND AMBASSADOR PROMOTIONAL MODEL CV Detailed CV Patient Stated Symptoms : Chest pain Nail Bed Color : Marianne Capillary Refill : Less than 2 seconds Cardiac Rhythm : Sinus rhythm Ectopy Frequency : None ANNALEE ELSI Hoang YING - 05/22/2013 19:50 BRAND [employer]BASSADOR PROMOTIONAL MODEL Neurological Last Well Time Known : Not applicable Level of Consciousness : Alert Orientation : Oriented x 3 Characteristics of Speech : Clear Neuro Patient Stated Symptoms : None Gait : Steady ANNALEE ELSI M RN - 05/22/2013 19:50 BRAND AMBASSADOR PROMOTIONAL MODEL ED Psychosocial Affect/Behavior : Calm, Cooperative, Appropriate Domestic Abuse Concerns : None ELSI MANTILLA RN - 05/22/2013 19:50 BRAND AMBASSADOR PROMOTIONAL MODEL Gastrointestinal Nutrition ED : Adequate GI Detailed Assessment : Yes ANNALEEELSI RN - 05/22/2013 19:50 BRAND AMBASSADOR PROMOTIONAL MODEL GI Detailed GI Patient Stated Symptoms : Belching GI Note : Patient had nausea and vomiting with pain initially. Vomiting x4, dark brown. Patient has been belching frequently and feels gassy. Stated she ate peanuts today and that can make her gassy. ELSI MANTILLA RN - 05/22/2013 19:50 BRAND AMBASSADOR PROMOTIONAL MODEL /OB Assessment Patient Stated Symptoms : None ELSI MANTILLA RN - 05/22/2013 19:50 BRAND AMBASS[employer]OR PROMOTIONAL MODEL Musculoskeletal Fall Prevention Education Provided : ELSI WILKERSON RN - 05/22/2013 19:50 BRAND [employer]OR PROMOTIONAL MODEL Social Habits Tobacco Use/Currently Using : No Exposure to Tobacco Smoke : Care provider denies smoking in home Smoking Status : Former smoker ELSI MANTILLA RN - 05/22/2013 19:50 BRAND AMBASSADOR PROMOTIONAL MODEL Source: [facility] [employer] Document Id: [id number] BRAND AMBASSADOR PROMOTIONAL MODEL!105 D AMBASSADOR PROMOTIONAL MODEL documented in this encounter Miscellaneous Notes Miscellaneous - Elsi Mantilla APRN, C.N.Masha, M.S.N. - 05/22/2013 8:45 PM BRAND [employer]OR PROMOTIONAL MODEL Valuables/Belongings Valuables/Belongings Entered On: 05/22/2013 20:52 BRAND AMBASSADOR PROMOTIONAL MODEL Performed On: 05/22/2013 20:45 BRAND AMBASSADOR PROMOTIONAL MODEL by ELSI MANTILLA RN Valuables/Belongings Belongings Sent Home With : All belongings sent with patient Home Medication Disposition : None brought in with patient ELSI MANTILLA RN - 05/22/2013 20:52 BRAND AMBASSADOR PROMOTIONAL MODEL Source: [facility] [employer] Document Id: [id number] BRAND AMBASSADOR PROMOTIONAL MODEL!4 D AMBASSADOR PROMOTIONAL MODEL Miscellaneous - Elsi Mantilla APRN, C.N.PXenia, M.S.N. - 05/22/2013 7:41 PM BRAND [employer]ADOR PROMOTIONAL MODEL Facility Charge Ticket 2.0 11.0 DX Facility Charge Ticket 2.0 11.0 DX Entered On: 05/22/2013 20:52 BRAND [employer]BASSADOR PROMOTIONAL MODEL Performed On: 05/22/2013 19:41 BRAND AMBASSADOR PROMOTIONAL MODEL by ELSI MANTILLA RN Facility Charge Ticket 2.0 11.0 DX ED Other Charges : Standard ED Encounter TVL Level Translated RTF : Chest pain TVL:5 TVL Level for Facility Charge Ticket : Level 5 Arrival Mode Calc : 1 Mode of Arrival ED : Private vehicle [facility] Mode of Arrival Interpreted : Standard [facility] Process Management : None Order Management RTF : Laboratory Basic Metabolic Panel,05/22/13 19:59,GUIDO RAO MD Completed CBC (includes Auto Differential),05/22/13 19:59,GUIDO RAO MD Completed Troponin T,05/22/13 19:59,GUIDO RAO MD Completed Notification Only,05/22/13 20:01,GUIDO RAO MD Completed Automated Diff-5 Part,05/22/13 20:04,GUIDO RAO MD Completed Xray XR Chest 1 view portable,05/22/13 19:59,GUIDO RAO MD Ordered [facility] Order Management : Lab tests, Xray - plain films 30 Minutes Critical Care : No Nursing Notes RTF : Nursing Notes ED Primary Assessment,05/22/13 19:50,ELSI MANTILLA TRIM OPERATOR Nurse Reassess,05/22/13 20:30,ELSI MANTILLA RN [facility] Nursing Assessment : Triage and 1-2 nursing assessments [facility] Disposition : Discharge Disposition RTF : discharge [facility] Total Points with Diagnosis Control : 13 [facility] Visit Level : 55361 Level 5 Treatments Prior to Arrival : None ELSI MANTILLA RN - 05/22/2013 20:52 BRAND AMBASSADOR PROMOTIONAL MODEL Source: [facility] POWERCHART Document Id: [id number] BRAND AMBASSADOR PROMOTIONAL MODEL!19 D AMBASSADOR PROMOTIONAL MODEL documented in this encounter Plan of Treatment Not on filedocumented as of this encounter Procedures Procedure Name Priority Date/Time Associated Diagnosis Comme nts DX CHEST 1 VIEW Routine 05/22/2013 8:24 PM Result s for this BRAND [employer]BASSADOR PROMOTIONAL MODEL procedure are i n the results section. AUTOMATED Routine 05/22/2013 7:55 PM Results f or this DIFFERENTIAL, B [employer]OR PROMOTIONAL MODEL procedure ar e in the results section. CBC WITH Routine 05/22/2013 7:55 PM Results f or this DIFFERENTIAL, B BRAND [employer]OR PROMOTIONAL MODEL procedure ar e in the results section. TROPONIN T, 5TH Routine 05/22/2013 7:55 PM Result s for this GEN, P BRAND [employer]OR PROMOTIONAL MODEL procedure are i n the results section. BASIC METABOLIC Routine 05/22/2013 7:55 PM Result s for this PANEL, S/P BRAND [employer]OR PROMOTIONAL MODEL procedure are i n the results section. ECG Routine 05/22/2013 7:50 PM Results f or this BRAND [employer]BASSADOR PROMOTIONAL MODEL procedure are i n the results section. documented in this encounter Results DX Chest 1 View (05/22/2013 8:24 PM BRAND AMBASSADOR PROMOTIONAL MODEL) Anatomical Region Laterality Modality Chest N/A Radiographic Imaging Specimen (Source) Anatomical Collection Method Collection Time Re ceived Time Location / / Volume Laterality 05/22/2013 8:24 PM BRAND [employer]BASSADOR PROMOTIONAL MODEL Addenda Addendum by Provider, Kelechi Rosario o desiree 05/22/2013 8:24 PM BRAND AMBASSADOR PROMOTIONAL MODEL RAD^^^MA XR Chest 1 view portable 05/22/2013 20:24:00 Impressions 05/23/2013 7:20 AM BRAND AMBASSADOR PROMOTIONAL MODEL No active cardiopulmonary disease. 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 Narrative 05/23/2013 7:20 AM BRAND AMBASSADOR PROMOTIONAL MODEL EXAM: XR Chest 1 view portable INDICATION: Chest pain COMPARISON: None. FINDINGS: There is mild scoliosis of the thoracolumbar junction convex to the right. Heart size and pulm onary vascularity are within normal limits. Lungs are clear of infilt rates or effusions. There appears to be some focal eventration of the left hemidiaphragm medially in the retrocardiac region. The re appears to be calcification in left suprahilar lymph n odes as well as small calcified granulomata in the left upper lobe. Procedure Note Brain Griffin Jr., M.D. / Abraham See M.D. - 08/22/2016 EXAM: XR Chest 1 view portable INDICATION: Chest pain COMPARISON: None. FINDINGS: There is mild scoliosis of the thoracolumbar junction convex to the right. Heart size and pulm onary vascularity are within normal limits. Lungs are clear of infilt rates or effusions. There appears to be some focal eventration of the left hemidiaphragm medially in the retrocardiac region. The re appears to be calcification in left suprahilar lymph n odes as well as small calcified granulomata in the left upper lobe. IMPRESSION: No active cardiopulmonary di sease. 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 Jordan Bailey R.T.(R)(CT), R.T.(R) IMG DIAGNOSTIC YAS GING PROCEDURES Automated Differential (05/22/2013 7:55 PM BRAND AMBASSADOR PROMOTIONAL MODEL) athologist Signature Absolute 4.21 1.70 - POWERCHART Neutrophils 7.00 109L Lymphocytes 2.16 0.90 - POWERCHART 2.90 X109L Monocytes 0.70 0.30 - POWERCHART 0.90 X109L Eosinophils <0.50 0.05 - POWERCHART 0.50 X109L Absolute <0.50 0.00 - POWERCHART Basophil 0.30 X109L Specimen Anatomical Collection Method Collection Time Receive d Time (Source) Location / / Volume Laterality Blood 05/22/2013 7:55 PM 4 7:55 BRAND AMBASSADOR PROMOTIONAL MODEL PM BRAND [employer]ADOR PROMOTIONAL MODEL Guido Rao M.D. LAB BLOOD ADD-ON Performing Organization Address City/State/ZIP Code Phon e Number POWERCHART CBC with Differential (05/22/2013 7:55 PM BRAND AMBASSADOR PROMOTIONAL MODEL) athologist Signature Leukocytes 7.3 3.5 - 10.5 POWERCHART X109L Erythrocytes 4.43 3.90 - POWERCHART 5.03 L3954E Hemoglobin 13.1 12.0 - POWERCHART 15.5 GDL Hematocrit 38.3 34.9 - POWERCHART 44.5 MCV 86.5 81.6 - POWERCHART 98.3 FL HX RDW 14.6 11.9 - POWERCHART 15.5 Platelet Count 249 150 - 450 POWERCHART X109L HXDifferential? Auto POWERCHART Specimen (Source) Anatomical Collection Method Collection Time Re ceived Time Location / / Volume Laterality Blood 05/22/2013 7:55 PM BRAND [employer]BASSADOR PROMOTIONAL MODEL Guido Rao M.D. LAB BLOOD ADD-ON Performing Organization Address City/State/ZIP Code Phon e Number POWERCHART Troponin T (05/22/2013 7:55 PM BRAND AMBASSADOR PROMOTIONAL MODEL) athologist Signature Troponin T, S <0.010 <=0.010 POWERCHART NGML Comment: Values > or = 0.01 ng/mL have b een shown to have prognostic value. Specimen (Source) Anatomical Collection Method Collection Time Re ceived Time Location / / Volume Laterality Blood 05/22/2013 7:55 PM BRAND AMBASSADOR PROMOTIONAL MODEL Guido Rao M.D. LAB BLOOD ADD-ON Performing Organization Address City/State/ZIP Code Phon e Number POWERCHART (ABNORMAL) BMP (Basic Metabolic Panel) (05/22/2013 7:55 PM BRAND AMBASSADOR PROMOTIONAL MODEL) Analysis Performed At Patho logist Time Signature Sodium, S 138 135 - 145 POWERCHART MMOLL Potassium, S 3.4 (L) 3.5 - 5.0 POWERCHART MMOLL Chloride, S 100 95 - 106 POWERCHART MMOLL CO2 Total 26 21 - 32 POWERCHART MMOLL BUN (Blood Urea 23 5 - 24 POWERCHART Nitrogen), S MGDL Creatinine 1.1 0.6 - 1.2 POWERCHART MGDL Calcium, Total, 10.0 8.9 - 10.1 POWERCHART S MGDL Anion Gap 12 7 - 15 POWERCHART MMOLL HXeGFR (MDRD) 49.9 (L) >=60.0 POWERCHART eGFR >60.0 >=60.0 POWERCHART Black/ Glucose 116 70 - 139 POWERCHART MGDL Specimen (Source) Anatomical Collection Method Collection Time Re ceived Time Location / / Volume Laterality Blood 05/22/2013 7:55 PM BRAND AMBASSADOR PROMOTIONAL MODEL Guiod Rao M.D. LAB BLOOD ADD-ON Performing Organization Address City/State/ZIP Code Phon e Number POWERCHART ECG 12 Lead (05/22/2013 7:50 PM BRAND AMBASSADOR PROMOTIONAL MODEL) Specimen (Source) Anatomical Collection Method Collection Time Re ceived Time Location / / Volume Laterality 05/22/2013 7:50 PM BRAND AMBASSADOR PROMOTIONAL MODEL [facility] SYSTEM - 05/22/2013 7:50 PM BRAND AMBASSADOR PROMOTIONAL MODEL Test Reason : EKG Blood Pressure : / mmHG Vent. Rate : 073 BPM ? Atrial Rate : 073 BPM ?? P-R Int : 156 ms ?QRS D ur : 084 ms ?QT Int : 384 ms ? P-R-T Axe s : 070 086 067 degrees ?? QTc Int : 423 ms Normal sinus rhythm Nonspecific ST abnormality No previous ECGs available Referred By: GUIDO RAO ? Confirmed By:KAREEM REED MD Procedure Note Provider, Kelechi Rosario - 09/02/2016F ormatting of this note might be different from the original. Test Reason : EKG Blood Pressure : / mmHG Vent. Rate : 073 BPM Atrial Rate : 073 B PM P-R Int : 156 ms QRS Dur : 084 ms QT Int : 384 ms P-R-T Axes : 070 086 06 7 degrees QTc Int : 423 ms Normal sinus rhythm Nonspecific ST abnormality No previous ECGs available Referred By: GUIDO RAO Confirmed By:Sonny REED MD Kareem Reed M.D., M.B. ECG ORDERABLES Performing Organization Address City/State/ZIP Code Phon e Number [facility] [address] [place] [phone] documented in this encounter Visit Diagnoses Not on filedocumented in this encounter
--- OUTSIDE RECORDS SUMMARY | 2022-01-19 14:58 | XMS_ITS | Encounter Summary ---
:1935 Author Organization [facility] Address [address] [place] [address] Care Team Providers Name Role Phone Unavailable Primary Care Provider Unavailable Encounter Details Date Type Department Care Team Description 03/24/2013 Hospital Encounter [facility]X [facility] Butch Schulte M.D. Social History Tobacco Use Types Packs/Day Years Used Date Smoking Tobacco: Never Assessed Sex Assigned at Date Recorded Not on file documented as of this encounter Last Filed Vital Signs Vital Sign Reading Time Taken Comments Blood Pressure 118/50 03/24/2013 7:59 PM FOUNDRY HELPER Pulse 72 03/24/2013 7:59 PM FOUNDRY HELPER Temperature - - Respiratory Rate - - Oxygen Saturation - - Inhaled Oxygen Concentration - - Weight 59 kg (130 lb 1.1 oz) 03/24/2013 7:59 PM FOUNDRY HELPER Height 170 cm (5' 6.93) 03/24/2013 7:59 PM FOUNDRY HELPER Body Mass Index 20.42 03/24/2013 7:59 PM FOUNDRY HELPER documented in this encounter Progress Notes Ye Fonseca M.D. - 03/24/2013 7:49 PM CST [id number] CHIEF COMPLAINT/REASON FOR VISIT The patient is a generally healthy 77-year-old woman who presents to the clinic stating that after ashopping trip she noted intermittent numbness and tingling on the lateral aspect of the right great toe from about the MP joint to the end of the toe. This lasts briefly but seems to be recurrent. It is not particularly painful but more of a paresthesia type sensation. She gave no previous history of same. She is not wearing new shoes of any sort, although as noted had done considerable walking todayon a shopping trip. There is no history of injury. She is otherwise doing well and offers no other complaints. PAST MEDICAL/SURGICAL HISTORY Hyperlipidemia and hypertension. She is otherwise pretty much in good health for her age. MEDICATIONS Please refer to nursing notes. ALLERGIES None known. PHYSICAL EXAMINATION Examination limited to the right foot. There is no evidence of erythema or warmth. On palpation overthe lateral aspect of the MP joint she did experience several episodes of the tingling discomfort into the lateral aspect of the great toe. This did not persist once I stopped manipulating the area. IMPRESSION/REPORT/PLAN Paresthesia, probably a little concern possibly as a result of a cutaneous nerve being irritated. PLAN: She is reassured. I told her to wear slippers or other broad shoes for the next day or 2 and to limit walking. If symptoms persist in the next week, I suggest she follow up with her local physician, Dr. Belle. Ye Fonseca M.D./tel Electronically Signed By: YE FONSECA MD On: 03/27/2013 12:39 PM Source: [facility] MHSDOLBEYNONRADSYS Document Id: [id number] DRY HELPER documented in this encounter Miscellaneous Notes Miscellaneous - Ye Fonseca M.D. - 03/24/2013 8:11 PM CST Ambulatory Patient Summary [facility] - [address] [address] Visit Information Name: KAROLINE HALEY [facility] Number: [id number] Current Date: 03/24/2013 20:11:03 Physicians Attending Provider: YE FONSECA MD Primary Care Provider: DARRICK MENDES MD ADENCyndi KAROLINE has been given the following list of [...] Take Indications/Special Instructions/Comments/Notes for Patient Medication Changes/Routing aspirin (aspirin 81 mg oral delayed release tablet) 1 Tablet(s), Oral, once a day calcium-vitamin D (Caltrate 600 + D oral tablet) 1 Tablet(s), Oral, two times a day cholecalciferol (Vitamin D3 1000 intl units oral tablet) 1 Tablet(s), Oral, once a day hydrochlorothiazide (hydrochlorothiazide 25 mg oral tablet) 1 Tablet(s), Oral, once a day lisinopril (lisinopril 2.5 mg oral tablet) 1 Tablet(s), Oral, once a day multivitamin with minerals (Centrum Silver Women's oral tablet) orphenadrine (orphenadrine 100 mg oral tablet, extended release) 1 Tablet(s), Oral, two times a day simvastatin (simvastatin 20 mg oral tablet) 1 Tablet(s), Oral, once a day (at bedtime) Stop Taking the Following Medications: Medication list as of 03-24-13 20:11 Attention: If you have any medications at home that are not on this list, DO NOT take them until youcontact your provider for clarification. Give a copy of your medication list to your primary care provider. Update your medication list any time medications or doses are changed and carry your medication list at all times in case of emergency. Your Allergies & Intolerances Substance Reaction Symptoms Category Comments No Allergies found Your Problem List Problem Status Onset Comments No Problems found Your Upcoming Appointments Date Time Location Reason Provider No Appointments found Attention: Contact your local Clinic if further appointment detail needed. Your Goals/Additional instructions: Source: [facility] POWERCHART Document Id: [id number] DRY HELPER Miscellaneous - Ye Fonseca M.D. - 03/24/2013 8:11 PM CST Ambulatory Depart Summary [facility] - [address] [address] Visit Information Name: KAROLINE HALEY [facility] Number: [id number] Visit Date: 03/24/2013 20:11:02 Attending Provider: YE FONSECA MD Primary Care Provider: DARRICK MENDES MD KAROLINE HALEY has been given the following list of medications: Your Medications It is important to take your medications as directed. Use a pill box or chart to help remind you to take your medications. Please let your doctor or nurse know if you have problems taking your medications. Medication/Strength How to Take Indications/Special Instructions/Comments/Notes for Patient Medication Changes/Routing aspirin (aspirin 81 mg oral delayed release tablet) 1 Tablet(s), Oral, once a day calcium-vitamin D (Caltrate 600 + D oral tablet) 1 Tablet(s), Oral, two times a day cholecalciferol (Vitamin D3 1000 intl units oral tablet) 1 Tablet(s), Oral, once a day hydrochlorothiazide (hydrochlorothiazide 25 mg oral tablet) 1 Tablet(s), Oral, once a day lisinopril (lisinopril 2.5 mg oral tablet) 1 Tablet(s), Oral, once a day multivitamin with minerals (Centrum Silver Women's oral tablet) orphenadrine (orphenadrine 100 mg oral tablet, extended release) 1 Tablet(s), Oral, two times a day simvastatin (simvastatin 20 mg oral tablet) 1 Tablet(s), Oral, once a day (at bedtime) Stop Taking the Following Medications: Medication list as of 03-24-13 20:11 Attention: If you have any medications at home that are not on this list, DO NOT take them until youcontact your provider for clarification. Give a copy of your medication list to your primary care provider. Update your medication list any time medications or doses are changed and carry your medication list at all times in case of emergency. Additional Information: Source: [facility] POWERCHART Document Id: [id number] DRY HELPER Miscellaneous - Rosita Tran, C.M.A. - 03/24/2013 7:59 PM CST Adult Senior Ux Designer Intake/History Adult Senior Ux Designer Intake/History Entered On: 03/24/2013 20:04 FOUNDRY HELPER Performed On: 03/24/2013 19:59 FOUNDRY HELPER by ROSITA TRAN Intake Chief Complaint : R Great toe; pins and needles sensation, dull ache. On the fat pad/phalange Onset of Symptoms : tonight Temperature Core : 36.7 DegC(Converted to: 98.1 DegF) Peripheral Pulse Rate : 72 /min Systolic Blood Pressure : 118 mmHg Diastolic Blood Pressure : 50 mmHg (LOW) NIBP Mean : 73 mmHg Height : 170 cm(Converted to: 5 ft 7 inch(es), 66.93 inch(es)) Actual Weight : 59 kg(Converted to: 130 lb 1 oz) Dosing Weight Clinic : 59 kg Clinic BSA : 1.67 Body Mass Index : 20.42 kg/m2 ROSITA TRAN 03/24/2013 19:59 FOUNDRY HELPER General Info Languages : [place]an ROSITA TRAN 03/24/2013 19:59 FOUNDRY HELPER Subjective Pain Symptoms : Yes ROSITA TRAN 03/24/2013 19:59 FOUNDRY HELPER Pain Pain Assessment Grid Pain 1 Location : Toe (Comment: R great toe [ROSITA TRAN 03/24/2013 19:59 FOUNDRY HELPER] ) ROSITA TRAN 03/24/2013 19:59 FOUNDRY HELPER Dependent Habits Tobacco Use/Currently Using : No Exposure to Tobacco Smoke : Care provider denies smoking in home Smoking Status : Never smoker ROSITA TRAN 03/24/2013 19:59 FOUNDRY HELPER Source: [employer] Document Id: [id number] FOUNDRY HELPER!26 DRY HELPER documented in this encounter Plan of Treatment Not on filedocumented as of this encounter Visit Diagnoses Not on filedocumented in this encounter
--- OUTSIDE RECORDS SUMMARY | 2022-01-19 14:58 | XMS_ITS | Encounter Summary ---
:1935 Author Organization [facility] Address [address] [place] [address] Care Team Providers Name Role Phone Unavailable Primary Care Provider Unavailable Encounter Details Date Type Department Care Team Description 03/01/2014 Hospital Encounter HX [facility] Vinnie Belle Jr., M.D. [address] [place], [place] [address] (Wo rk) Social History Tobacco Use Types Packs/Day Years Used Date Smoking Tobacco: Never Assessed Sex Assigned at Date Recorded Not on file documented as of this encounter Plan of Treatment Not on filedocumented as of this encounter Procedures Procedure Name Priority Date/Time Associated Diagnosis Comme nts BI BREAST SCREENING Routine 03/01/2014 1:22 PM Re sults for this BILATERAL TEST CENTER ADMINISTRATOR procedure are i n the results section. documented in this encounter Results BI Breast Screening Bilateral (03/01/2014 1:22 PM TEST CENTER ADMINISTRATOR) Anatomical Region Laterality Modality Breast Bilateral Mammography Specimen (Source) Anatomical Collection Method Collection Time Re ceived Time Location / / Volume Laterality 03/01/2014 1:22 PM TEST CENTER ADMINISTRATOR Addenda Addendum by Provider, Kelechi Rosario 03/01/2014 1:22 PM TEST CENTER ADMINISTRATOR RAD^^^MA MA Mammo Screening w/ [facility] 03/01/2014 13:22:23 Impressions 03/01/2014 2:00 PM TEST CENTER ADMINISTRATOR BI-RADS 1. ??NEGATIVE. RECOMMENDATION: Routine yearly mammogram . BREAST MAMMOGRAPHY - GENERAL OBSERVATION S: ??The false negative rate for mammography is 15-20%. ??It cannot b e used, therefore, to replace the regular physical examination. ??A no rmal or noncontributory mammogram report also should not deter t he aggressive further workup of any suspected palpable masses. Narrative 03/01/2014 2:00 PM TEST CENTER ADMINISTRATOR Bilateral digital screening Mammography with computer-aided detection, CAD. COMPARISON: 02/28/2013. HISTORY: 78 -year-old female with no caryl ast complaints or breast problems on today's screening mammogram. FINDINGS: Tissue density is scattered fi broglandular densities. There has been no interval change. Procedure Note Vincent Saul M.D. / Provider, Susie rowe M.D. - 08/23/2016 Bilateral digital screening Mammography with computer-aided detection, CAD. COMPARISON: 02/28/2013. HISTORY: 78 -year-old female with no caryl ast complaints or breast problems on today's screening mammogram. FINDINGS: Tissue density is scattered fi broglandular densities. There has been no interval change. IMPRESSION: BI-RADS 1. NEGATIVE. RECOMMENDATION: Routine yearly mammogram . BREAST MAMMOGRAPHY - GENERAL OBSERVATION S: The false negative rate for mammography is 15-20%. It cannot be used, therefore, to replace the regular physical examination. A norm al or noncontributory mammogram report also should not deter t he aggressive further workup of any suspected palpable masses. Jessica Zafar.T.(R)(CT), R.T.(R)(M) IMG BI PROCEDURES documented in this encounter Visit Diagnoses Not on filedocumented in this encounter
--- OUTSIDE RECORDS SUMMARY | 2022-01-19 14:58 | XMS_ITS | Encounter Summary ---
:1935 Author Organization [facility] Address [address] [place] [address] Care Team Providers Name Role Phone Unavailable Primary Care Provider Unavailable Encounter Details Date Type Department Care Team Description 10/24/2014 - Hospital Encounter HX [facility] Jose Daniel Belle, 10/29/2014 Kelechi Social History Tobacco Use Types Packs/Day Years Used Date Smoking Tobacco: Never Assessed Sex Assigned at Date Recorded Not on file documented as of this encounter Last Filed Vital Signs Vital Sign Reading Time Taken Comments Blood Pressure 128/54 10/29/2014 8:23 AM CDT Pulse 77 10/28/2014 8:24 PM CDT Temperature - - Respiratory Rate 20 10/29/2014 8:23 AM CDT Oxygen Saturation - - Inhaled Oxygen Concentration - - Weight 60.8 kg (134 lb 0.6 oz) 10/29/2014 6:19 AM CDT Height 168 cm (5' 6.14) 10/24/2014 11:00 AM CDT Body Mass Index 21.54 10/24/2014 11:00 AM CDT documented in this encounter Discharge Summaries Conversion, Historical Provider Ser - 10/29/2014 10:09 AM CDT Hospital Discharge Instructions [facility] [address] [place] [address] Patient Discharge Instructions Name: KAROLINE NUÑEZ Current Date: 10/29/2014 10:09:01 : 1935 12:00 AM [facility] Number: [id number] Patient Address: [address] [place] [phone] Patient Primary Care Provider: Name: BRITNEY BELLE MD Discharge Diagnosis: [facility] in [place] would like to thank you for allowing us to assist you with your healthcare needs. The following includes patient education materials and information regarding your injury/illness. Comment: KAROLINE NUÑEZ has been given the following list of follow-up instructions, medication list, and patient education materials: Follow-up Instructions With: Address: When: Our clinic will call you for the nephrology appointment on Thursday morning. Dr. Dent in [place]. Within As Soon As Possible Comments: With: Address: When: JOSE DANIEL BELLE [address] [place] [address] [phone] Business (1) In 9 days 11/06/2014 Comments: Call for follow up appointment [phone] Dr. Ward Discharge Diet Diet Type: Other (Special Instructions) Special Instructions: Renal Diet Discharge Instruction General Activity Limitations: Activity as tolerated Exercise Instructions: Exercise daily as tolerated Call for worsening symptoms: Contact Primary Care Provider Medications Medication/Strength How to Take Indications/Special Instructions/Comments/Notes for Patient Medication Changes/Routing ascorbic acid (ascorbic acid 500 mg oral tablet) 1 Tablet(s), Oral, two times a day New Routed to [facility] [address] [place] [address] aspirin (aspirin 81 mg oral delayed release tablet) 1 Tablet(s), Oral, once a day cholecalciferol (Vitamin D3 1000 intl units oral tablet) 1 Tablet(s), Oral, once a day ciprofloxacin (Cipro 500 mg oral tablet) 1 Tablet(s), Oral, two times a day x 7 day(s) [facility] [address] [place] [address] ferrous gluconate (ferrous gluconate 325 mg (36 mg elemental iron) oral tablet) 1 Tablet(s), Oral, two times a day This is a CHANGE Routed to [facility] [address] [place] [address] multivitamin with minerals (Centrum Silver Women's oral tablet) orphenadrine (orphenadrine 100 mg oral tablet, extended release) 1 Tablet(s), Oral, as needed raloxifene (raloxifene 60 mg oral tablet) 1 Tablet(s), Oral, once a day ranitidine (ranitidine 150 mg oral tablet) 1 Tablet(s), Oral, once a day (at bedtime) [facility] [address] [place] [address] saccharomyces boulardii lyo (saccharomyces boulardii lyo 250 mg oral capsule) 1 cap, Oral, two timesa day simvastatin (simvastatin 10 mg oral tablet) 1 Tablet(s), Oral, once a day (at bedtime) [facility] [address] [place] [address] traZODone (traZODone 50 mg oral tablet) 0.5 Tablet(s), Oral, once a day (at bedtime) as needed for Sleep Stop Taking the Following Medications: heparin (heparin 10,000 units/mL injectable solution) hydrochlorothiazide (hydrochlorothiazide 25 mg oral tablet) lisinopril (lisinopril 2.5 mg oral tablet) loperamide (loperamide 2 mg oral capsule) omeprazole (PriLOSEC 10 mg oral delayed release capsule) piperacillin-tazobactam (piperacillin-tazobactam 2 g-0.25 g intravenous injection) Medication list as of 10-29-14 10:09 Attention: If you have any medications at home that are not on this list, DO NOT take them until youcontact your provider for clarification. Give a copy of your medication list to your primary care provider. Update your medication list any time medications or doses are changed and carry your medication list at all times in case of emergency. Comment: Electronically Signed By: JOSE DANIEL BELLE MD Signed On:28-OCT-2014 14:21:02 Your Upcoming Appointments Date Time Location Provider No Appointments found Consider Using Patient Online Services Patient Online [...] if you dont have one. Go to [email or web address] and click on Create Your Account. Then, follow the directions to complete the online form. Youll be asked for your [facility] number which you can find at the top of this document. SUDHA France ALICE ROSE , have received the attached patient education materials/instructions and have verbalized understanding: Patient Signature Date Time Care Provider Signature Date Time Anemia and Kidney Disease Anemia is a health problem that affects your blood. Normally, the kidneys send out a signal (erythropoietin) that tells your body when to make new red blood cells. But if you have kidney disease, your kidneys may not be able to send this signal. Use this handout to help you understand anemia and the medication that can help control it. What Is Anemia? Anemia occurs when your blood does not have enough red cells in it. Then your blood cant carry as much oxygen to your body. As a result, all your organs are running on too little fuel. Red blood cells make up 35 to 45 percent of normal blood. If you have anemia, your red cell count (hematocrit) is below 35. Anemia can cause you to feel tired quickly. Signs of Anemia Talk with your health care provider if you have any of these signs: ?? Ongoing fatigue ?? Shortness of breath ?? Rapid, irregular heartbeat ?? Trouble concentrating ?? Impotence ?? Feeling dizzy or lightheaded ?? Constant feeling of being cold Medication Can Help If youre at risk for anemia, you may be given a medication called epoetin mars (sometimes called EPO). EPO is a manmade version of erythropoietin. EPO controls anemia by signaling your body to make redblood cells. Most people who take EPO feel better and become more active. How EPO Is Used EPO may be used to treat any person with kidney disease who has anemia, but is most often used to treat people on dialysis. EPO can be given by IV during a hemodialysis session and can also be given asan injection. This is how most CAPD patients receive it. ?? [id number] [employer], [address] [place] [address], [place] [address]. All rights reserved. This information is not intended as a substitute for professional medical care. Always follow your healthcare professional's instructions. Anemia, Iron Deficiency [Adult] Anemia is a condition where the size or number of red blood cells in the body is reduced. Iron is needed in the diet to make red cells. The red blood cells carry oxygen to all parts of the body. Anemialimits the delivery of oxygen to where it is needed. This causes a feeling of being tired and run down. When anemia becomes severe, the skin becomes pale and there is shortness of breath with exertion,headaches, dizziness, drowsiness and fatigue. The cause of your anemia is lack of iron in your body. This may occur due to blood loss (for example, heavy menstrual periods or bleeding from the stomach or intestines) or a poor diet (not eating enough iron-containing foods), inability to absorb iron from your diet, or . If the blood count is low enough, an IRON SUPPLEMENT will be prescribed. It usually takes about 2-3 months of treatment with iron supplements to correct an anemia. Severe cases of anemia requires a blood transfusion to rapidly correct symptoms and deliver more oxygen to the cells. Home Care: 1) Increase the iron stores in your body by eating foods high in iron content. This is a natural wayof building your blood cells back up again. Beef, liver, spinach and other dark green leafy vegetables, whole grain products, beans and nuts are all natural sources of iron. 2) If you are having symptoms of anemia listed above: -- Do not overexert yourself. -- Talk to your doctor before flying on an airplane or traveling to high altitudes. Follow Up with your doctor in 2 months for a repeat red blood cell count, or as recommended by our staff, to be sure that the anemia has been corrected. Get Prompt Medical Attention if any of the following occur or worsen: -- Shortness of breath or chest pain -- Dizziness or fainting -- Vomiting blood or passing red or black-colored stool ?? [address] [address]. All rights reserved. This information is not intended as a substitute for professional medical care. Always follow your healthcare professional's instructions. Sepsis Sepsis occurs when your body responds to a severe infection or bacteremia -- the presence of bacteria in your bloodstream. Sepsis can be deadly. Blood pressure may drop and the lungs and kidneys may start to fail. Emergency care for sepsis is crucial. Risk Factors Those most at risk for sepsis are: ?? Infants or older adults ?? People who have an illness such as cancer, AIDS, or diabetes ?? People being treated with chemotherapy medications or radiation ?? People who have had a transplant ?? People with an infection such as pneumonia, meningitis, or a urinary tract infection When to Go to the Emergency Department (ED) Sepsis is a medical emergency. Go to the nearest emergency department if a fever is present with anyof these symptoms: ?? Chills and shaking ?? Rapid heartbeat and breathing; shortness of breath ?? Severe nausea or uncontrolled vomiting ?? Confusion, dizziness ?? Decreased urination ?? Severe pain, including in the back or joints What to Expect in the ED ?? Blood and urine tests are done to look for the presence of bacteria. ?? A blood culture may be done. In this test, a blood sample is sent to a lab, where its placed in aspecial container. Any bacteria in the blood should grow in 24 hours. ?? X-rays may be taken or other imaging tests may be done. A person with sepsis will be admitted to the hospital and treated with antibiotics. Treatment may also include oxygen and intravenous fluids. ?? [address] [address]. All rights reserved. This information is not intended as a substitute for professional medical care. Always follow your healthcare professional's instructions. Bladder Infection, Female (Adult) A bladder infection [...] in the labia (outer vaginal area) ?? [id number] [facility], [address] [place] [address], [place] [address]. All rights reserved. This information is not intended as a substitute for professional medical care. Always follow your healthcare professional's instructions. Atrial Fibrillation Atrial Fibrillation is a condition where the heart beats in an irregular pattern. It is due to a disturbance in the electrical pathways of the heart. It is a sign of heart disease or other health problem affecting the heart. The most common symptom is palpitations. This is the feeling that your heart is fluttering, beating fast, hard or irregular. When the heart beats too fast it does not pump blood very well. This can cause other symptoms such as anxiety, fatigue, shortness of breath, chest pain, dizziness or fainting. Atrial Fibrillation may come and go, lasting from a few hours to a couple of days. Or, it may become chronic, lasting for months at a time, or longer. Atrial Fibrillation may be caused by a disease of the heart or other conditions in the body that affect the heart: ?? Coronary artery disease (atherosclerosis) ?? High blood pressure ?? Disease of the heart valves ?? Enlarged heart Atrial Fibrillation can also occur without heart disease due to: ?? Overactive thyroid (hyperthyroid) ?? Chronic lung disease (COPD, emphysema, bronchitis) ?? Heavy alcohol use ?? Cardiac stimulants (cocaine, amphetamines, diet pills, certain decongestant cold medicines, caffeine or nicotine) ?? Infection ?? Blood clot in the lung (pulmonary embolus) Treating or removing these causes will improve success in the treatment of Atrial Fibrillation and reduce your risk of recurrence. Atrial Fibrillation can alternate back and forth with another abnormal rhythm called Atrial Flutter . The risk of stroke increases with either of these conditions. Proper treatment can reduce your riskof stroke. Home Care: ?? Resume your usual activities as soon as you are feeling back to normal. ?? If you smoke, stop smoking. Contact your doctor or a local stop-smoking program for help. ?? Avoid cardiac stimulants (cocaine, amphetamines, diet pills, certain decongestant cold medicines,caffeine or nicotine). ?? If medicine is prescribed to prevent recurrence of Atrial Fibrillation, take it exactly as directed. Some medicines must be taken daily, not just when you have symptoms, in order to be effective. ?? If you were prescribed warfarin (Coumadin) to reduce stroke risk, have your blood tested on a regular basis as advised by your doctor. This will ensure you are getting the dose that is right for youand reduce the risk of side effects. Follow Up with your doctor as advised by our staff. Get Prompt Medical Attention if any of the following occur: ?? Increasing shortness of breath or swelling in the legs ?? Unexpected weight gain ?? Chest pain or palpitations (the sense that your heart is fluttering, beating fast or hard) ?? Fever of 100.4?F (38?C) or higher, or as directed by your healthcare provider ?? Cough with dark colored or bloody sputum (mucus) ?? Pain, redness or swelling in one leg ?? Signs of stroke: ?? Weakness of an arm or leg or one side of the face ?? Difficulty with speech or vision ?? Extreme drowsiness, confusion, dizziness or fainting ?? [id number] [employer], [address] [place] [address], [place] [address]. All rights reserved. This information is not intended as a substitute for professional medical care. Always follow your healthcare professional's instructions. Creatinine (Blood) Does this test have other names? Serum creatinine, blood creatinine What is this test? This is a blood test that measures how well your kidneys work. Clearing and filtering waste productsout of your blood are important kidney functions. Creatinine is a normal waste product that builds up in your blood from using your muscles. Your bodyproduces creatinine at a constant rate all the time, and healthy kidneys remove almost all of this creatinine. By comparing the amount of creatinine in your blood with a standard normal amount, your doctor can get a good idea of how well your kidneys are working. Why do I need this test? You may have a creatinine test as part of your regular medical checkup. It's often included in routine blood tests to check your overall health. You may need this test if you have signs or symptoms of kidney disease. Your risk for kidney diseaseis higher if you are an older adult, have high blood pressure, have a family history of kidney disease, or have diabetes. You may also be at increased risk if you are -[place]i, , ,, or . Signs and symptoms of kidney disease include: ?? Frequent tiredness ?? Swelling in your feet or ankles ?? Poor appetite ?? Puffiness around your eyes ?? Dry, itchy skin ?? Muscle cramps ?? Frequent urination ?? Painful urination ?? Blood in your urine If you are being treated for kidney disease, you may also need this test to see how well your treatment is working. What other tests might I have along with this test? Your doctors may use your blood creatinine level, along with your age, race, sex, and other factors,to calculate your glomerular filtration rate (GFR). The GFR is considered the best measure of kidneyfunction. Blood urea nitrogen (BUN) is another blood test that's often done with a creatinine test. BUN is another waste product that doctors measure to see how your kidneys are functioning. You may also have a test that measures the amount of creatinine in your urine. What do my test results mean? Many things may affect your lab test results. These include the method each lab uses to do the test.Even if your test results are different from the normal value, you may not have a problem. To learn what the results mean for you, talk with your health care provider. A normal level of creatinine depends on how much muscle mass you have. A normal level for a man is higher than it is for a woman. Children have lower levels than both men and women. Creatinine is measured in milligrams per deciliter (mg/dL). Here are the normal values by age: ?? 0.9 to 1.3 mg/dL for adult males ?? 0.6 to 1.1 mg/dL for adult females ?? 0.5 to 1.0 mg/dL for children ages 3 to 18 years ?? 0.3 to 0.7 mg/dL for children under age 3 If your creatinine is high, it may mean you have: ?? Kidney disease ?? Blockage in your urinary system ?? Muscle disease ?? Congestive heart failure ?? Diabetes ?? Dehydration ?? Overactive thyroid gland If your creatinine is low, it may mean you have: ?? Muscle loss ?? Severe liver disease ?? Not enough protein in your diet How is this test done? The test requires a blood sample, which is drawn through a needle from a vein in your arm. Does this test pose any risks? Taking a blood sample with a needle carries small risks that include bleeding, infection, bruising, and a sense of lightheadedness. When the needle pricks your arm, you may feel a slight sting or pain.Afterward, the site may be sore. What might affect my test results? Some factors that could interfere with your creatinine test include: ? Eating a lot of meat recently ?? Taking large doses of vitamin C ?? Taking certain medications, especially antibiotics How do I get ready for this test? You don't need to prepare for this test. Tell your doctor if you are . Also, be sure your doctor knows about all medicines, herbs, vitamins, and supplements you are taking. This includes medicines that don't need a prescription and any illicit drugs you may use. ?? [id number] [employer], [address] [place] [address], [place] [address]. All rights reserved. This information is not intended as a substitute for professional medical care. Always follow your healthcare professional's instructions. Diet For Chronic Kidney Disease Following a special diet when you have kidney disease can help you stay as healthy as possible. A special diet plan should be made just for you by your doctor or a dietitian. Here are some good eating rules: ?? PROTEIN: High-protein diets put a strain on the kidneys. Eating less protein may slow the progression of chronic kidney disease. Foods high in protein include meat, fish, eggs, cheese and other dairy products. A registered dietitian can help you plan a diet that contains an appropriate amount of pro tein for you. ?? SALT: Excess salt in your diet causes you to retain water. Use no more than one half teaspoon of salt (or 1,500 mg of sodium) a day to avoid fluid retention and help control high blood pressure. Learn to read food labels to know how much sodium is in one serving. Foods high in salt include smoked meats and fish, processed foods, salted chips and snacks, and pickled foods. ?? FLUIDS: You will need to limit the water and fluids you drink, if you have advanced kidney disease. Otherwise, excess water builds up in the body. The exact amount of fluid that you can drink depends on your kidney function. Ask your doctor how much water you can safely drink each day. ?? POTASSIUM: In advanced kidney disease, your potassium level can go dangerously high. This affectsthe heart and can cause arrhythmia (irregular heartbeat). Limit your intake of potassium-rich foods such as artichokes, beans (white, red, and sykes), bananas, potatoes, spinach, cantaloupe, honeydew melon, cod, flounder, halibut, salmon, and scallops. ?? CALCIUM: Take calcium supplements to help keep your bones healthy. Ask your doctor how much calcium you should take each day. ?? PHOSPHORUS: In advanced kidney disease, your phosphorus level can go dangerously high. This affects many systems in the body and can become very dangerous. Limit your intake of phosphorus-rich foodssuch as eggs, beans, peas, nuts, cocoa, beer, cola drinks, and dairy products. ?? [phone] [employer], [address] [place] [address], [place] [address]. All rights reserved. This information is not intended as a substitute for professional medical care. Always follow your healthcare professional's instructions. This document has images extracted. Please consider using nfon for all your patient education needs. Source: [facility] POWERCHART Document Id: [id number] Conversion, Historical Provider Ser - 10/29/2014 10:09 AM CDT Hospital Discharge Medication List [address] [place] [address] Discharge Medication List Name: KAROLINE NUÑEZ Current Date: 10/29/2014 10:08:59 : 1935 12:00 AM [facility] Number: [id number] Patient Address: [address] [place] [phone] Patient Primary Care Provider: Name: BRITNEY BELLE MD Discharge Diagnosis: [facility] in [place] would like to thank you for allowing us to assist you with your healthcare needs. The following includes patient education materials and information regarding your injury/illness. Medications Medication/Strength How to Take Indications/Special Instructions/Comments/Notes for Patient Medication Changes/Routing ascorbic acid (ascorbic acid 500 mg oral tablet) 1 Tablet(s), Oral, two times a day New Routed to [facility] [address] [place] [address] aspirin (aspirin 81 mg oral delayed release tablet) 1 Tablet(s), Oral, once a day cholecalciferol (Vitamin D3 1000 intl units oral tablet) 1 Tablet(s), Oral, once a day ciprofloxacin (Cipro 500 mg oral tablet) 1 Tablet(s), Oral, two times a day x 7 day(s) [facility] [address] [place] [address] ferrous gluconate (ferrous gluconate 325 mg (36 mg elemental iron) oral tablet) 1 Tablet(s), Oral, two times a day This is a CHANGE Routed to [facility] [address] [place] [address] multivitamin with minerals (Centrum Silver Women's oral tablet) orphenadrine (orphenadrine 100 mg oral tablet, extended release) 1 Tablet(s), Oral, as needed raloxifene (raloxifene 60 mg oral tablet) 1 Tablet(s), Oral, once a day ranitidine (ranitidine 150 mg oral tablet) 1 Tablet(s), Oral, once a day (at bedtime) New Routed to [facility] [address] [place] [address] saccharomyces boulardii lyo (saccharomyces boulardii lyo 250 mg oral capsule) 1 cap, Oral, two timesa day simvastatin (simvastatin 10 mg oral tablet) 1 Tablet(s), Oral, once a day (at bedtime) Routed to [facility] [address] [place] [address] traZODone (traZODone 50 mg oral tablet) 0.5 Tablet(s), Oral, once a day (at bedtime) as needed for Sleep Stop Taking the Following Medications: heparin (heparin 10,000 units/mL injectable solution) hydrochlorothiazide (hydrochlorothiazide 25 mg oral tablet) lisinopril (lisinopril 2.5 mg oral tablet) loperamide (loperamide 2 mg oral capsule) omeprazole (PriLOSEC 10 mg oral delayed release capsule) piperacillin-tazobactam (piperacillin-tazobactam 2 g-0.25 g intravenous injection) Medication list as of 10-29-14 10:08 Attention: If you have any medications at home that are not on this list, DO NOT take them until youcontact your provider for clarification. Give a copy of your medication list to your primary care provider. Update your medication list any time medications or doses are changed and carry your medication list at all times in case of emergency. Comment: Electronically Signed By: JOSE DANIEL BELLE MD Signed On:28-OCT-2014 14:21:02 Source: [facility] [employer] Document Id: [id number] Conversion, Historical Provider Ser - 10/29/2014 8:55 AM CDT Discharge Summary Discharge Summary Entered On: 10/29/2014 9:58 CDT Performed On: 10/29/2014 8:55 CDT by WIN RAMIREZ RN, DC Information Discharged to : Home with family care Current Home Treatments : None WIN RAMIREZ RN - 10/29/2014 9:56 CDT Education General Patient Education Powergrid Topics : Diagnostic results, Disease process, Medication dosage, route, scheduling, Nutrition/Diet Individuals Taught : Patient, Daughter Barriers to Learning : None evident Teaching Method : Explanation, Printed materials Teaching Evaluation : Verbalizes understanding WIN RAMIREZ RN - 10/29/2014 9:56 CDT Valuables/Belongings Belongings Sent Home With : Patient and her daughter packed on her belongings Home Medication Disposition : None brought in with patient WIN RAMIREZ RN - 10/29/2014 9:56 CDT [facility] Document Id: [id number] CDT!15 Gume Cooley, R.N. - 10/29/2014 8:01 AM CDT Discharge Summary Discharge Summary Entered On: 10/29/2014 8:03 CDT Performed On: 10/29/2014 8:01 CDT by GUME COOLEY RN, DC Information Discharged to : Home independently Current Home Treatments : None Home Equipment : None Professional Skilled Services : None Special Services and Community Resources : None Mode of Discharge : Ambulatory Discharge Transportation : Private vehicle Accompanied By : Nurse aide, Family GUME COOLEY RN - 10/29/2014 8:01 CDT Education General Patient Education Powergrid Topics : Discharge instructions/Medication list, Importance of follow-up visits, Medication dosage, route, scheduling, Nutrition/Diet, Plan of care, Printed materials, Safety, fall, Treatments/Procedures/Tests, When to call health care provider Individuals Taught : Patient, Daughter Barriers to Learning : None evident Teaching Method : Explanation, Printed materials Teaching Evaluation : Able to teach back, Verbalizes understanding ALFONZO GUME TENORIO RN - 10/29/2014 8:01 CDT Valuables/Belongings Home Medication Disposition : None brought in with patient ALFONZO GOMESGUME HIGUERA RN - 10/29/2014 8:01 CDT Source: [facility] POWERCHART Document Id: [id number] CDT!20 Jose Daniel Belle M.D. - 10/29/2014 12:00 AM CDT [id number] REVISION HISTORY 11/02/2014 at 8:02 am - -- Modification: Incomplete isabela resolved per Dr. Jose Daniel Belle () DATE OF ADMISSION: October 24, 2014 DATE OF DISCHARGE: October 29, 2014 HISTORY OF PRESENT ILLNESS A 78-year-old in swing bed for IV antibiotics due to urosepsis. The patient did well during the swing bed stay. Heart remained regular, no atrial fibrillation. Vital signs normal. Family updated duringthe hospitalization stay. Blood pressure remained normotensive, and blood pressure medications were held during the hospitalization stay. WU FINDINGS AND TEST RESULTS: Blood pressure at discharge 129/64, and a creatinine at discharge of 1.8, with a BUN of 22. Electrocardiogram showed normal sinus rhythm on 10/22/2014. Ultrasound of the kidneys showed no acute findings, chronic left renal atrophy, chronic medical renal disease (increased cortical echogenicity), known chronic small parapelvic right renal cyst. Due to the atrophic left kidney and a cyst on the right kidney, it was elected to have a consult with Nephrology, Dr. Dent at [facility] in [place], [place]. The patient did have a chest x-ray done which showed noactive intrathoracic disease demonstrated on this portable view on admission. FINAL DIAGNOSES: 1. Primary is urosepsis. 2. History of atrial fibrillation. BRIEF SWING BED COURSE: The patient did well and tolerated Zosyn with minimal side effects of diarrhea. Remained afebrile. CONDITION AT DISCHARGE: The patient is ambulating on own. Tolerating a regular diet. DISCHARGE DESTINATION: Home. MEDICATIONS AT DISCHARGE: Discharge medication reconciliation was done at the time of discharge: 1. Vitamin C 500 mg twice daily. 2. Aspirin 81 mg daily. 3. Vitamin D3, 1000 mg daily. 4. Cipro 500 mg twice daily for 7 days. 5. Ferrous gluconate 325 mg twice daily. 6. Multivitamin daily. 7. Orphenadrine 100 mg oral tablet extended release, as needed. 8. Evista 60 mg daily. 9. Ranitidine 150 mg at bedtime. 10. Probiotic twice daily until done with antibiotics, then once daily. 11. Simvastatin 10 mg at bedtime. 12. Trazodone 50 mg at bedtime as needed for sleep. FOLLOWUP APPOINTMENTS AND PROPOSED MANAGEMENT PLAN: Follow up with Dr. Jose Daniel Belle in 9 days at [facility]. The patient is to call the clinic to make appointment. Our clinic will call you for Nephrology appointments. ANTICIPATED PROBLEMS/SUGGESTED INTERVENTIONS: Hold blood pressure medications. See if tolerates oralantibiotics. This may be problematic given creatinine. PENDING LAB RESULTS AND TESTS: None. RECOMMENDATIONS OF SUBSPECIALTY CONSULTANTS: No subspecialty consults done during the hospitalization stay. DOCUMENTATION OF PATIENT EDUCATION: Patient education given on anemia and chronic kidney disease, anemia iron deficiency adult, sepsis, bladder infections female, atrial fibrillation, creatinine, and diet, renal. NAME AND 24-HOUR PHONE NUMBER OF HOSPITAL PHYSICIAN RECORDS: IDr. Jose Daniel, . Jose Daniel Belle M.D./tim Electronically Signed By: JOSE DANIEL BELLE MD On: 10/30/2014 04:17 PM Jose Dainel Belle M.D./nola Electronically Signed By: JOSE DANIEL BELLE MD On: 10/30/2014 04:17 PM Co-Signed By: JOSE DANIEL BELLE MD On: 11/02/2014 05:12 PM Source: [facility] MHSDOLBEYNONRADSYS Document Id: [id number] documented in this encounter Medications at Time of Discharge Medication Sig Dispensed Refills Start Date End Date simvastatin (ZOCOR) 10 mg Take 10 mg by mouth 0 0 10/28/2014 tablet at bedtime. raNITIdine (ZANTAC) 150 mg 150 mg. 0 5 07/23/2020 tablet documented as of this encounter Progress Notes Jose Daniel Belle M.D. - 10/28/2014 12:00 AM CDT [id number] ATTENDING PHYSICIAN: Dr. Jose Daniel Belle. ALLERGIES: SEPTRA. ZINC. MEDICATION LIST: Sodium chloride 0.9% saline flush. Simvastatin 10 mg. Probiotic 250 mg twice daily. Ranitidine 150 mg at bedtime. Zosyn 2.25 mg every 8 hours. Multivitamin with minerals daily. Loperamide as needed for diarrhea. Orphenadrine 100 mg for muscle spasms. Has not used since decreasing the simvastatin to 10 mg. Heparin for DVT prophylaxis. Iron therapy is also started twice daily, seemed to be tolerating well. Vitamin D 1000 units daily. Have not checked vitamin D during the hospitalization. Aspirin daily. Vitamin C to help absorption of the iron and also instituted twice daily and 500 mg. The patient continues to do well. Urinalysis checked in showed 4 to 10 white blood cells. Patient will be discharged on ciprofloxacin. No new complaints today. Patient's vital signs showed blood pressure 119/76, pulse 74, temperature 36.8 degrees Celsius, respiratory rate 18, O2 sats 98% on oxygen therapy. Patient not on high blood pressure pills and continues to be normotensive. PATIENT'S CODE STATUS: Patient is do not resuscitate. PHYSICAL EXAMINATION GENERAL: On exam, patient appears happy, pleasant. HEENT: Eyes non-icteric. HEART: Regular rate and rhythm, S1, S2, clicks, murmurs, or rubs. ABDOMEN: Soft, nontender in all 4 quadrants. CHEST: Clear to auscultation bilaterally. EXTREMITIES: Revealed no edema. ASSESSMENT: 1. Urosepsis. 2. Iron-deficiency anemia. 3. 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 4. Gastritis. 5. Hyperlipidemia. 6. Patient now normotensive. PLAN: Discharge patient tomorrow 10/29/2014 on ciprofloxacin and follow up with Nephrology. Follow up with primary care physician Dr. Jose Daniel Belle in 9 days. Continue iron therapy. Continue antibiotics until tomorrow morning. Plan on discharge in the morning and start Cipro at dinner. Jose Daniel Belle M.D./pos Electronically Signed By: JOSE DANIEL BELLE MD On: 10/29/2014 07:15 AM Source: [facility] MHSDOLBEYNONRADSYS Document Id: [id number] Jose Daniel Belle M.D. - 10/27/2014 12:00 AM CDT [id number] Swing bed status SUBJECTIVE: Patient having 5 loose stools a day. Reported blood in stool. Guaiac negative. On antibiotics. C. diff culture negative. No chest pain, shortness of breath. No previous rectal bleeding. Colonoscopy less than 10 years ago and normal. OBJECTIVE: VITAL SIGNS: Temperature 37.3 degrees Celsius, pulse 78, blood pressure 121/63, off blood pressure medications. Respiratory rate 18, O2 sats 98% on room air. GENERAL: The patient appears in no apparent distress. HEART: Regular, no murmur. CHEST: Clear to auscultation. ABDOMEN: With hyperactive bowel sounds. Nontender to palpation. EXTREMITIES: Revealed no edema. LABORATORY WORK: C. diff toxin negative. White blood cell count normal. Hemoglobin 10.5. Platelets 213. Sodium 143, potassium 4.5, bicarb 23, GAP 11, glucose 83, creatinine 1.8, 27 GFR. ASSESSMENT: 1. Acute on chronic renal failure due to urosepsis. 2. Iron deficiency anemia. 3. Hypertension, now with normotensive blood pressures. 4. Loose stools secondary to antibiotic use. PLAN: <__IM_1: BLANK sounds like reintroduce 02:38__> ferrous gluconate 324 mg twice daily for60 days and see response of hemoglobin. Consider another colonoscopy if does not rise. Take ferrous gluconate with vitamin C 500 mg twice daily. Add loperamide for loose stools. Continue Zosyn at <__IM_1: BLANK sounds like 225 03:00__> IV every 8 hours until Thursday. Continue lower dose of simvast atin at 10 mg. The myalgias seem to be improved. Continue to hold blood pressure medications. Plan on seeing patient on Thursday afternoon and obtain urinalysis to see if able to discharge on Thursday. Jose Daniel Belle M.D./pos Electronically Signed By: JOSE DANIEL BELLE MD On: 10/27/2014 12:53 PM Source: [facility] MHSDOLBEYNONRADSYS Document Id: [id number] Krystyna Gross - 10/26/2014 11:10 AM CDT SSA Social Work Assessment inpatient REFERRAL SOURCE Automatic PURPOSE OF VISIT REASON FOR ASSESSMENT TCU admission PERSONS INTERVIEWED pt REASON FOR VISIT Urosepsis HISTORY OF PRESENT ILLNESS Pt is a 78 year old female who resides independently in [place], [place]. She said she had been feeling fine and then all of a sudden she was having some issues with dizziness. She went in to see the doctor and they gave her some medication. She was then having some double vision and was vomiting. Pt was then brought to the ED and was admitted with urosepsis and placed on IV antibiotics. Please see Dr. Penaloza progress notes from 10/20/14 for additional information. SYSTEMS REVIEW Pt said she is feeling much better than when she was first admitted CURRENT STRESSORS None CURRENT SYMPTOMS None COPING Staying busy, family and friends, playing cards PAST MEDICAL / SURGICAL HISTORY OTHER MEDICAL HISTORY Please see EMR for additional information MENTAL HEALTH HISTORY Pt denies CHEMICAL USE / DEPENDENCY Pt denies SOCIAL HISTORY MARITAL STATUS / FAMILY Pt is recently . Her on July 12, 2014. She said it was quite difficult atfirst, but has been getting easier. She stated that staying busy and being around people has helped.She has 2 daughters and 1 son that are very involved. EDUCATION / EMPLOYMENT Pt is retired FINANCIAL Pt has Medicare and BCBS for insurance. Pt has 20 full and 80 co insurance days available. Pt does not identify any financial concerns at this time. COMMUNITY RESOURCES / SUPPORT SYSTEM No formal supports in place. Her daughters help her clean a few times a month and her son helps her with her medication when needed. SPIRITUALITY / CONGREGATIONAL / CULTURE Pt is Worship LEGAL Per EMR, pt is DNR and she is her own decision maker. DISCUSSION SW went over TCU admission paperwork including pt bill of rights. Pt is on IV antibiotics currently.She is hoping that she will get to DC home on Thursday. That was the tentative date the doctor had told her that she would need to antibiotics for. Pt does not have any concerns regarding discharge. She does not feel she will need any services. Pt was provided with some lifeline information per her request. IMPRESSION / REPORT / PLAN SUMMARY Pt is quite friendly and active. Pt appears to have good support system of family and friends who have been visiting frequently and that pt reports she sees often when not in the hospital. MENTAL STATUS EXAM Dressed in regular attire sitting in bed Grooming: appropriate Good eye contact. Appears stated age. Behavior: Calm and interactive. Cooperation: Cooperative and forthcoming. Appears reliable. Speech: Normal rate, tone, and volume. Mood: pleasant Affect: Mood congruent, stable, normal range. Thought process: Linear and goal directed. Thought content: No evidence of overt delusions or paranoia. Perception: Denies auditory and visual hallucinations and does not appear to be responding to internal stimuli. Consciousness: Awake and alert. Orientation: Orientation to person, place and time. Memory/Attention: Conversationally intact. Fund of Knowledge: Consistent with education and experiences, as evidence by vocabulary. Insight: good Judgment: good Safety: Denies current suicidal and homicidal ideation. Motivation to pursue treatment: high INTERVENTIONS 1. Psychosocial assessment completed. 2. TCU admission paperwork completed. 3. Provided information on lifeline. 4. Provided information on the role of the child protective services social worker. PLAN 1. Pt will continue on IV antibiotics and then plans to DC home when those are complete. 2. SW will continue to follow and assist as needed. 3. A list of agencies within the area that patient/family geographically resides or requests has been provided to and reviewed with patient/family. Disclosure of [facility]'s financial interest in [facility] was provided to and acknowledged by patient/family. ANTICIPATED BARRIERS / DEFICITS FOR DISMISSAL 1. None identified PATIENT EDUCATION Patient educational needs assessed: ready to learn with no apparent learning barriers. Education on treatment plan provided according to patients preferred learning style. Patient expressed understanding of the information provided and expressed the intention, except where otherwise noted, to follow through with the recommendations. Electronically Signed By: KRYSTYNA GROSS On: 10/26/2014 11:11 AM Source: [employer] Document Id: [id number] Krystyna Gross - 10/25/2014 3:37 PM CDT attempted visit SW attempted 4x to meet with the pt today and pt had various company. Will try to see pt tomorrow to complete assessemtn. Electronically Signed By: KRYSTYNA GROSS On: 10/25/2014 03:38 PM Source: [employer] Document Id: [id number] Gloria Ortiz P.Regis. - 10/25/2014 11:03 AM CDT TCU screen Pt has no concerns regarding her gait and mobility. She scored a 27/28 on TInetti's balance assessment and walked 70m without ad. She did demonstrate minor sway with narrow tiffanie and decreased visual input. Pt does not need additional physical therapy at this time. Electronically Signed By: GLORIA ORTIZ PT On: 10/25/2014 11:04 AM [facility] Document Id: [id number] documented in this encounter Procedure Notes Rajan Carl R.N. - 10/27/2014 4:18 PM CDT Peripheral IV Peripheral IV Entered On: 10/27/2014 16:19 CDT Performed On: 10/27/2014 16:18 CDT by RAJAN CARL RN Peripheral IV Peripheral IV Assess/Intervention Grid Peripheral IV #1 Peripheral IV #2 IV Activity : Start, Saline lock Discontinue Removal : Catheter intact, Hemostasis within expected timeframe Number of Attempts : 1 1 Date of Insertion : 10/27/2014 CDT 10/24/2014 CDT IV Site : Forearm Forearm Laterality : Left Left Catheter Size : 20 20 Catheter Type : Protective Other: Nexivia Site Condition : No complications Drainage Description : None Primary Tubing Changed : 10/26/2014 CDT Secondary Tubing Changed : 10/26/2014 CDT RAJAN CARL RN - 10/27/2014 16:18 CDT RAJAN CARL RN - 10/27/2014 16:18 CDT Source: [employer] Document Id: [id number] CDT!24 Jaskaran Baires CRNA - 10/24/2014 4:04 PM CDT Peripheral IV Peripheral IV Entered On: 10/24/2014 16:07 CDT Performed On: 10/24/2014 16:04 CDT by JASKARAN BAIRES CRNA Peripheral IV Peripheral IV Assess/Intervention Grid Peripheral IV #1 Peripheral IV #2 IV Activity : Assessment Start Number of Attempts : 1 Date of Insertion : 10/24/2014 CDT IV Site : Hand Forearm Laterality : Left Catheter Size : 20 20 Catheter Type : Butterfly Other: Nexivia JASKARAN BAIRES CRNA - 10/24/2014 16:04 CDT JASKARAN BAIRES CRNA - 10/24/2014 16:04 CDT Source: [employer] Document Id: [id number] CDT!16 documented in this encounter Consult Notes Yara Alejo, Pharm.D. - 10/24/2014 11:34 AM CDT Pharmacy Clinical Interventions Pharmacy Clinical Interventions Entered On: 10/24/2014 11:36 CDT Performed On: 10/24/2014 11:34 CDT by YARA ALEJO PharmD Clinical Interventions Intervention Status : Completed Intervention Task Status : Completed Intervention Type Pharmacy : Dose Adjustment (Renal/Hepatic) Prescriber Response Pharmacy : Accepted Pharmacy Additional Information : Ranitidine 150mg po BID ordered. Recommendation to MD to decrease dose to daily on this 78 yo female ht 168cm, wt 61.5kg, Scr 2.1. Est CrCl 22ml/min. MD accepted recommendation, order modified. YARA ALEJO PharmD - 10/24/2014 11:34 CDT Source: [facility] [employer] Document Id: [id number] CDT!7 documented in this encounter Nursing Notes Conversion, Historical Provider Ser - 10/28/2014 3:12 PM CDT Patient went out on pass at 14:40 with family. Left PIV wrapped to protect site.Patient understandsto return. Electronically Signed By: LUIZ CINTRON, INBOX [id number] On: 09/21/2015 02:56 PM Co-Signed By: LUIZ CINTRON, INBOX [id number] On: 09/21/2015 02:56 PM Electronically Signed by Proxy by: MIKE TRAN [facility] Document Id: [id number] Amari Gallo, R.N. - 10/26/2014 2:15 PM CDT Focused Assessment - Gastrointestinal Focused Assessment - Gastrointestinal Entered On: 10/26/2014 15:30 CDT Performed On: 10/26/2014 14:15 CDT by AMARI GALLO RN Gastrointestinal GI Patient Stated Symptoms : None Abdomen Description : Symmetric Abdomen Palpation : Non-Tender, Soft Bowel Movement Last Date : 10/26/2014 CDT Bowel Sounds All Quadrants : Hyperactive Stool Color : Brown, Blood-Tinged Stool Description : Loose Stool Amount : Small AMARI GALLO RN - 10/26/2014 15:29 CDT Source: [employer] Document Id: [id number] CDT!10 Leti Matthews RDN, FERNIE - 10/25/2014 1:35 PM CDT Nutrition Assessment Adult Nutrition Assessment Adult Entered On: 10/25/2014 13:36 CDT Performed On: 10/25/2014 13:35 CDT by LETI ESPINAL RDN Assessment I Adult Nutrition Orders : Diet - 10/24/14 9:26:00 CDT, General (No Restrictions) LETI ESPINAL RDN - 10/25/2014 13:35 CDT Assessment II Adult Actual Weight Conversion to Pounds : 136.84 lb Needs Additional Information : 10/25/14 When patient transitioned to TCU diet changed to Regular. Proposed pt receive CKD diet. LETI ESPINAL RDN - 10/25/2014 13:35 CDT Source: [employer] Document Id: [id number] CDT!6 Elsi Cook RXeniaNXenia - 10/24/2014 9:27 AM CDT Protocol Vascular Access Adult Protocol Vascular Access Adult Entered On: 10/24/2014 9:27 CDT Performed On: 10/24/2014 9:27 CDT by ELSI COOK RN Vascular Access Adult Protocol Age 15 years or older Adult Protocol : Yes Vascular Access Device Adult : Yes Exclusion Criteria Adult Vascular Access Protocol : Patient has none of the below exclusions Vascular Access Protocol Status Adult : Criteria Met ELSI COOK RN - 10/24/2014 9:27 CDT Source: [employer] Document Id: [id number] CDT!6 Charissa Erwin R.N. - 10/24/2014 8:16 AM CDT Cardiac Monitoring Cardiac Monitoring Entered On: 10/24/2014 10:44 CDT Performed On: 10/24/2014 8:16 CDT by CHARISSA ERWIN RN Cardiac Monitoring Monitoring Lead : II Monitoring Lead Line Operator : Discontinued Atrial Rate : 76 bpm Atrial Rhythm : Regular Ventricular Rate : 76 bpm Ventricular Rhythm : Regular ME Interval : 0.13 P to QRS Ratio : 1:1 QRS Duration : 0.12 second(s) QT Interval : 0.36 second(s) ME Consistency : Consistent QRS Consistency : Consistent ST Segment : Isoelectric Ectopy Frequency : None Cardiac Rhythm Tech : Sinus rhythm CHARISSA ERWIN RN - 10/24/2014 10:41 CDT Source: [employer] Document Id: [id number] CDT!17 Charissa Erwin R.N. - 10/24/2014 8:09 AM CDT Cardiac Monitoring Cardiac Monitoring Entered On: 10/24/2014 10:41 CDT Performed On: 10/24/2014 8:09 CDT by CHARISSA ERWIN RN Cardiac Monitoring Monitoring Lead : II Monitoring Lead Line Operator : Other: continued Atrial Rate : 78 bpm Atrial Rhythm : Regular Ventricular Rate : 78 bpm Ventricular Rhythm : Regular ME Interval : 0.14 P to QRS Ratio : 1:1 QRS Duration : 0.09 second(s) QT Interval : 0.36 second(s) ME Consistency : Consistent QRS Consistency : Consistent ST Segment : Isoelectric Ectopy Frequency : Rare (1-3/min) Cardiac Rhythm Tech : Sinus rhythm, PVC CHARISSA ERWIN RN - 10/24/2014 10:39 CDT Source: [employer] Document Id: [id number] CDT!17 Tej Buckner - 10/23/2014 11:30 PM CDT Cardiac Monitoring Cardiac Monitoring Entered On: 10/23/2014 23:31 CDT Performed On: 10/23/2014 23:30 CDT by TEJ BUCKNER Cardiac Monitoring Monitoring Lead : II, V1/MCL1 Ventricular Rate : 75 bpm Ventricular Rhythm : Regular ME Interval : 0.19 QRS Duration : 0.08 second(s) QT Interval : 0.34 second(s) ME Consistency : Consistent QRS Consistency : Consistent ST Segment : Isoelectric Cardiac Rhythm Tech : Sinus rhythm TEJ BUCKNER - 10/23/2014 23:30 CDT [facility] Document Id: [id number] CDT!12 documented in this encounter OR Notes Op Note - Jaskaran Baires CRNA - 10/24/2014 4:01 PM CDT Anesthesia - Difficult IV Placement Difficult IV Start Time:[id number] Cole Belle Requested to start intravenous line on patient with history of known difficult iv access. 0 attempts by nursing prior to my notification. Site cleansed with ChloraPrep per Hospital protocol. Lidocaine skin wheal. #20 gauge IV placed in left forearm. 1 attempt successful. Positive blood return and flushes easily. Tegaderm and tape used to secure IV per Hospital protocol. Electronically Signed By: JASKARAN BAIRES CRNA On: 10/24/2014 04:02 PM Source: [employer] Document Id: [id number] documented in this encounter Miscellaneous Notes Miscellaneous - Conversion, Historical Provider Ser - 10/29/2014 8:55 AM CDT Coding Summary-Paper Based CODING DATE: 11/01/2014 FINAL [facility] STATUS: * Discharged to Home or Self Care PAYOR: Medicare Grouper: 945 MS-DRG Rehabilitation w CC/DETENTION ADMIT DX: V57.1 Care Involving Other Physical Therapy REASON FOR VISIT DX: FINAL DX: PRINCIPAL: V57.1 E Care Involving Other Physical Therapy SECONDARY: V58.62 E Long-Term (Current) Use of Antibiotics 584.9 Y Acute Kidney Failure, Unspecified 599.0 Y Urinary Tract Infection, Site Not Specified 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 427.31 Y Atrial Fibrillation 585.3 Y Chronic Kidney Disease, Stage III (Moderate) 587 Y Renal Sclerosis, Unspecified V49.86 Y Do Not Resuscitate Status 593.2 Y Cyst of Kidney, Acquired 403.90 Y Hypertensive Chronic Kidney Disease, Unspecified, with Chronic Kidney Disease Stage I Through Stage IV, or Unspecified 280.9 Y Iron Deficiency Anemia, Unspecified 787.91 N Diarrhea 535.50 N Unspecified Gastritis and Gastroduodenitis, without Mention of Hemorrhage 272.4 Y Other and Unspecified Hyperlipidemia 296.90 Y 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 However, the narrative phrase printed from the coding software may appear abbreviated, or result in slightly different terminology. Coded By: MAXWELL DICK Date Saved: 11/01/2014 02:05 pm [facility] Document Id: [id number] Miscellaneous - Conversion, Historical Provider Ser - 10/29/2014 8:30 AM CDT Adult Ongoing Assessment Adult Ongoing Assessment Entered On: 10/29/2014 10:02 CDT Performed On: 10/29/2014 8:30 CDT by WIN RAMIREZ RN Respiratory Respiratory Patient Stated Symptoms : None Respirations : Unlabored Respiratory Pattern : Regular All Lobes Breath Sounds : Clear WIN RAMIREZ RN - 10/29/2014 9:58 CDT Cardiovascular CV Patient Stated Symptoms : None Heart Rhythm : Regular Heart Sounds ICU : S1S2 Antiembolism Device Yes/No : No Nail Bed Color : [place] Capillary Refill : Less than 2 seconds Edema Assessment : No WIN RAMIREZ - 10/29/2014 9:58 CDT Radial Pulse, Left : 2+ Normal Radial Pulse, Right : 2+ Normal WIN RAMIREZ 10/29/2014 9:58 CDT Skin Color : Normal for ethnicity Skin Description : Dry Skin Temperature : Warm Activity Tolerance : Without distress WIN RAMIREZ - 10/29/2014 9:58 CDT Neurological Neuro Patient Stated Symptoms : None Orientation : Oriented x 3 Level of Consciousness : Alert Gait : Steady WIN RAMIREZ - 10/29/2014 9:58 CDT [place] Coma Eye Opening Response [place] : Spontaneously Best Verbal Response Marine : Oriented Best Motor Response Marine : Obeys simple commands [place] Coma Score : 15 WIN RAMIREZ 10/29/2014 9:58 CDT Psycho/Emotional Affect/Behavior : Calm, Cooperative Pain Symptoms : No Feels Rested : Yes WIN RAMIREZ 10/29/2014 9:58 CDT Coping Grid Stable mood with appropriate affect : Yes Behaviors indicate use of coping mechanism : Yes Family supportive and involved in care : Yes WIN RAMIREZ - 10/29/2014 9:58 CDT Safety Grid Vision, Hearing, Mobility Adequate to Meet Safety Needs : Yes WIN RAMIREZ 10/29/2014 9:58 CDT Gastrointestinal GI Patient Stated Symptoms : None Abdomen Description : Asymmetric Abdomen Palpation : Soft Bowel Movement Last Date : 10/28/2014 CDT Bowel Sounds All Quadrants : Present WIN RAMIREZ 10/29/2014 9:58 CDT Nutrition Home Diet : Renal Appetite : Good Eating Difficulties : None Feeding Ability : Complete independence WIN RAMIREZ - 10/29/2014 9:58 CDT Genitourinary Patient Stated Symptoms : None Urinary Elimination : Voiding, no difficulties WIN RAMIREZ 10/29/2014 9:58 CDT Integumentary Integumentary Patient Stated Symptoms : Bruising Skin Turgor : Elastic Skin Integrity : Intact Mucous Membrane Color : [place] Mucous Membrane Description : Moist WIN RAMIREZ 10/29/2014 9:58 CDT Skin Abnormality/Location Grid Location : Abdomen Hand Lower arm Laterality : Left, Right Left, Right Right Abnormality : Bruising Bruising WIN RAMIREZ RN - 10/29/2014 9:58 CDT WIN RAMIREZ RN - 10/29/2014 9:58 CDT WIN RAMIREZ RN - 10/29/2014 9:58 CDT Skin Color : Normal for ethnicity Skin Description : Dry Skin Temperature : Warm WIN RAMIREZ RN - 10/29/2014 9:58 CDT Shawn Sensory Perception Shawn : No impairment Moisture Shawn : Rarely moist Activity Shawn : Walks frequently Mobility Shawn : No limitations Nutrition Shawn : Adequate Friction and Shear Shawn : No apparent problem Shawn Score : 22 WIN RAMIREZ RN - 10/29/2014 9:58 CDT Musculoskeletal Musculoskeletal Patient Stated Symptoms : None WIN RAMIREZ RN - 10/29/2014 9:58 CDT Peripheral IV Peripheral IV Assess/Intervention Grid Peripheral IV #1 Peripheral IV #2 IV Activity : Discontinue Discontinue Removal : Catheter intact, Hemostasis within expected timeframe Number of Attempts : 1 1 Date of Insertion : 10/27/2014 CDT 10/24/2014 CDT IV Site : Forearm Forearm Laterality : Left Left Catheter Size : 20 20 Catheter Type : Protective Other: Nexivia Primary Tubing Changed : 10/26/2014 CDT Secondary Tubing Changed : 10/26/2014 CDT WIN RAMIREZ RN - 10/29/2014 9:58 CDT WIN RAMIREZ RN - 10/29/2014 9:58 CDT Hendrich II Fall Risk Confusion/Disorientation Hendrich [...] Fall Risk Score Hendrich II : 0 WIN RAMIREZ RN - 10/29/2014 9:58 CDT Safe Patient Handling Safe Pt Handling Independent : Yes - No equipment needed Safe Pt Handling Equipment Rec : No Equipment Needed WIN RAMIREZ RN - 10/29/2014 9:58 CDT Education General Patient Education Powergrid Topics : Plan of care Individuals Taught : Patient, Daughter Barriers to Learning : None evident Teaching Method : Explanation Teaching Evaluation : Verbalizes understanding WIN RAMIREZ RN - 10/29/2014 9:58 CDT Source: [employer] Document Id: [id number] CDT!128 Miscellmira - Gume Cooley R.N. - 10/29/2014 8:01 AM CDT Valuables/Belongings Valuables/Belongings Entered On: 10/29/2014 8:01 CDT Performed On: 10/29/2014 8:01 CDT by GUME COOLEY RN Valuables/Belongings Home Medication Disposition : None brought in with patient GUME COOLEY RN - 10/29/2014 8:01 CDT [facility] Document Id: [id number] CDT!3 Miscellaneous - Pema Buckner R.N. - 10/28/2014 11:39 PM CDT Adult Ongoing Assessment Adult Ongoing Assessment Entered On: 10/28/2014 23:53 CDT Performed On: 10/28/2014 23:39 CDT by PEMA BUCKNER RN Respiratory Respiratory Patient Stated Symptoms : None Respiratory Pattern : Regular All Lobes Breath Sounds : Clear Cough : None PEMA BUCKNER RN - 10/28/2014 23:39 CDT Cardiovascular CV Patient Stated Symptoms : None Heart Rhythm : Regular Heart Sounds ICU : S1S2 Antiembolism Device Yes/No : No Edema Assessment : No PEMA BUCKNER RN - 10/28/2014 23:39 CDT Dorsalis Pedis Pulse, Left : 2+ Normal Dorsalis Pedis Pulse, Right : 2+ Normal PEMA BUCKNER RN - 10/28/2014 23:39 CDT Skin Color : Normal for ethnicity Skin Description : Dry Skin Temperature : Warm Activity Tolerance : Without distress PEMA BUCKNER RN - 10/28/2014 23:39 CDT Neurological Neuro Patient Stated Symptoms : None Orientation : Oriented x 3 Level of Consciousness : Alert Gait : Steady Swallowing Difficulty/Aspiration Risk : None PEMA BUCKNER DEONNA - 10/28/2014 23:39 CDT [place] Coma Eye Opening Response [place] : Spontaneously Best Verbal Response Marine : Oriented Best Motor Response Marine : Obeys simple commands [place] Coma Score : 15 PEMA BUCKNER RN - 10/28/2014 23:39 CDT Psycho/Emotional Affect/Behavior : Calm, Cooperative Pain Symptoms : No PEMA BUCKNER DEONNA - 10/28/2014 23:39 CDT Coping Grid Identifies effective strategies : Yes Uses effective strategies : Yes Behaviors indicate use of coping mechanism : Yes Family supportive and involved in care : Yes PEMA BUCKNER DEONNA - 10/28/2014 23:39 CDT Safety Grid Vision, Hearing, Mobility Adequate to Meet Safety Needs : Yes PEMA BUCKNER DEONNA - 10/28/2014 23:39 CDT Gastrointestinal GI Patient Stated Symptoms : None Abdomen Description : Rounded Abdomen Palpation : Soft Bowel Movement Last Date : 10/28/2014 CDT Bowel Sounds All Quadrants : Present Stool Description : Soft PEMA BUCKNER DEONNA - 10/28/2014 23:39 CDT Genitourinary Patient Stated Symptoms : None PEMA BUCKNER DEONNA - 10/28/2014 23:39 CDT Integumentary Integumentary Patient Stated Symptoms : Bruising Skin Integrity : Intact PEMA BUCKNER DEONNA - 10/28/2014 23:39 CDT Skin Abnormality/Location Grid Location : Abdomen Hand Lower arm Laterality : Left, Right Left, Right Right Abnormality : Bruising Bruising PEMA BUCKNER DEONNA - 10/28/2014 23:39 CDT PEMA BUCKNER DEONNA - 10/28/2014 23:39 CDT PEMA BUCKNER - 10/28/2014 23:39 CDT Skin Color : Normal for ethnicity PEMA BUCKNER - 10/28/2014 23:39 CDT Shawn Sensory Perception Shawn : No impairment Moisture Shawn : Rarely moist Activity Shawn : Walks frequently Mobility Shawn : No limitations Nutrition Shawn : Excellent Friction and Shear Shawn : No apparent problem Shawn Score : 23 PEMA BUCKNER - 10/28/2014 23:39 CDT Peripheral IV Peripheral IV Assess/Intervention Grid Peripheral IV #1 Peripheral IV #2 IV Activity : Assessment, Saline lock Discontinue Number of Attempts : 1 1 Date of Insertion : 10/27/2014 CDT 10/24/2014 CDT IV Site : Forearm Forearm Laterality : Left Left Catheter Size : 20 20 Catheter Type : Protective Other: Nexivia Site Condition : No complications Primary Tubing Changed : 10/26/2014 CDT Secondary Tubing Changed : 10/26/2014 CDT PEMA BUCKNER RN - 10/28/2014 23:39 CDT PEMA BUCKNER RN - 10/28/2014 23:39 CDT Hendrich II Fall Risk Confusion/Disorientation Hendrich [...] Fall Risk Score Hendrich II : 1 PEMA BUCKNER RN - 10/28/2014 23:39 CDT Education General Patient Education Powergrid Topics : Medication dosage, route, scheduling, Plan of care Individuals Taught : Patient, Daughter Barriers to Learning : None evident Teaching Method : Explanation Teaching Evaluation : Verbalizes understanding PEMA BUCKNER RN - 10/28/2014 23:39 CDT Source: [employer] Document Id: [id number] CDT!112 Miscellaneous - Nabeel Patton - 10/28/2014 11:24 AM CDT Adult Activities of Daily Living Adult Activities of Daily Living Entered On: 10/28/2014 11:24 CDT Performed On: 10/28/2014 11:24 CDT by NABEEL PATTON ADLs II Hygiene Assistance Grid Shower : Minimum assistance NABEEL PATTON - 10/28/2014 11:24 CDT Bowel Movement Last Date : 10/27/2014 CDT Standard Safety : Call device within reach, Non-Slip footwear, Rounds every 1 hour, Upper/Half-length side-rails up NABEEL PATTON - 10/28/2014 11:24 CDT Source: [employer] Document Id: [id number] CDT!6 Miscellaneous - Conversion, Historical Provider Ser - 10/28/2014 9:00 AM CDT Adult Ongoing Assessment Adult Ongoing Assessment Entered On: 10/28/2014 10:15 CDT Performed On: 10/28/2014 9:00 CDT by WIN RAMIREZ RN Respiratory Respiratory Patient Stated Symptoms : None Respirations : Unlabored Respiratory Pattern : Regular All Lobes Breath Sounds : Clear Airway : Patent WIN RAMIREZ RN - 10/28/2014 10:11 CDT Cardiovascular CV Patient Stated Symptoms : None Heart Rhythm : Regular Heart Sounds ICU : S1S2 Antiembolism Device Yes/No : No Nail Bed Color : [place] Capillary Refill : Less than 2 seconds Edema Assessment : No WIN RAMIREZ RN - 10/28/2014 10:11 CDT Radial Pulse, Left : 2+ Normal Radial Pulse, Right : 2+ Normal WIN RAMIREZ RN - 10/28/2014 10:11 CDT Skin Color : Normal for ethnicity Skin Description : Dry Skin Temperature : Warm Activity Tolerance : Without distress WIN RAMIREZ RN - 10/28/2014 10:11 CDT Neurological Neuro Patient Stated Symptoms : None Orientation : Oriented x 3 Gait : Steady Swallowing Difficulty/Aspiration Risk : None WIN RAMIREZ RN - 10/28/2014 10:11 CDT [place] Com[place] Eye Opening Response [place] : Spontaneously Best Verbal Response [place] : Oriented Best Motor Response [place] : Obeys simple commands [place] Coma Score : 15 WIN RAMIREZ RN - 10/28/2014 10:11 CDT Psycho/Emotional Affect/Behavior : Calm, Cooperative Pain Symptoms : No Feels Rested : Yes WIN RAMIREZ RN - 10/28/2014 10:11 CDT Coping Grid Behaviors indicate use of coping mechanism : Yes Family supportive and involved in care : Yes WIN RAMIREZ RN - 10/28/2014 10:11 CDT Safety Grid Vision, Hearing, Mobility Adequate to Meet Safety Needs : Yes WIN RAMIREZ RN - 10/28/2014 10:11 CDT Gastrointestinal GI Patient Stated Symptoms : None Abdomen Description : Asymmetric Abdomen Palpation : Soft Bowel Movement Last Date : 10/27/2014 CDT WIN RAMIREZ - 10/28/2014 10:11 CDT Nutrition Home Diet : Regular Appetite : Good WIN RAMIREZ 10/28/2014 10:11 CDT Genitourinary Patient Stated Symptoms : None Urinary Elimination : Voiding, no difficulties Urine Color : Yellow Urine Description : Clear WIN RAMIREZ - 10/28/2014 10:11 CDT Integumentary Integumentary Patient Stated Symptoms : Bruising Skin Turgor : Elastic Skin Integrity : Intact Mucous Membrane Color : [place] Mucous Membrane Description : Moist WIN RAMIREZ 10/28/2014 10:11 CDT Skin Abnormality/Location Grid Location : Abdomen Hand Lower arm Laterality : Left, Right Left, Right Right Abnormality : Bruising Bruising Bruising WIN RAMIREZ 10/28/2014 10:11 CDT WIN RAMIREZ 10/28/2014 10:11 CDT WIN RAMIREZ 10/28/2014 10:11 CDT Skin Color : Normal for ethnicity Skin Description : Dry Skin Temperature : Warm WIN RAMIREZ - 10/28/2014 10:11 CDT Shawn Sensory Perception Shawn : No impairment Moisture Shawn : Rarely moist Activity Shawn : Walks frequently Mobility Shawn : No limitations Nutrition Shawn : Adequate Friction and Shear Shawn : No apparent problem Shawn Score : 22 WIN RAMIREZ - 10/28/2014 10:11 CDT Musculoskeletal Musculoskeletal Patient Stated Symptoms : None WIN RAMIREZ - 10/28/2014 10:11 CDT Peripheral IV Peripheral IV Assess/Intervention Grid Peripheral IV #1 Peripheral IV #2 IV Activity : Assessment, Saline lock Discontinue Number of Attempts : 1 1 Date of Insertion : 10/27/2014 CDT 10/24/2014 CDT IV Site : Forearm Forearm Laterality : Left Left Catheter Size : 20 20 Catheter Type : Protective Other: Nexivia Primary Tubing Changed : 10/26/2014 CDT Secondary Tubing Changed : 10/26/2014 CDT WIN RAMIREZ - 10/28/2014 10:11 CDT WIN RAMIREZ 10/28/2014 10:11 CDT Hendrich II Fall Risk Confusion/Disorientation Hendrich [...] Fall Risk Score Hendrich II : 0 WIN RAMIREZ RN - 10/28/2014 10:11 CDT Safe Patient Handling Safe Pt Handling Independent : Yes - No equipment needed Safe Pt Handling Equipment Rec : No Equipment Needed WIN RAMIREZ RN - 10/28/2014 10:11 CDT Education General Patient Education Powergrid Topics : Plan of care Individuals Taught : Patient, Daughter Barriers to Learning : None evident Teaching Method : Explanation Teaching Evaluation : Verbalizes understanding WIN RAMIREZ RN - 10/28/2014 10:11 CDT Source: [employer] Document Id: [id number] CDT!127 Miscellaneous - Nadine Campos RAbimbola - 10/27/2014 11:15 PM CDT Adult Ongoing Assessment Adult Ongoing Assessment Entered On: 10/27/2014 22:13 CDT Performed On: 10/27/2014 23:15 CDT by NADINE CAMPOS RN Respiratory Respiratory Patient Stated Symptoms : None Respirations : Unlabored [place]ob[place] Breath Sounds : Clear Cough : None Sputum Amount : None Suction : None Airway : Patent NADINE CAMPOS RN - 10/27/2014 23:27 CDT Cardiovascular CV Patient Stated Symptoms : None Antiembolism Device Yes/No : No Nail Bed Color : [place] Capillary Refill : Greater than 2 seconds Edema Assessment : No NADINE CAMPOS RN - 10/27/2014 23:27 CDT Radial Pulse, Left : 2+ Normal Radial Pulse, Right : 2+ Normal Dorsalis Pedis Pulse, Left : 2+ Normal Dorsalis Pedis Pulse, Right : 2+ Normal NADINE CAMPOS RN - 10/27/2014 23:27 CDT Skin Color : Normal for ethnicity Skin Description : Dry, Fragile Skin Temperature : Warm Activity Tolerance : Minimal distress NADINE CAMPOS RN - 10/27/2014 23:27 CDT Neurological Neuro Patient Stated Symptoms : None Orientation : Oriented x 3 Level of Consciousness : Alert Gait : Steady Swallowing Difficulty/Aspiration Risk : None NADINE CAMPOS RN - 10/27/2014 23:27 CDT Oral Assessment Lips : Smooth, pink, moist, intact Gingiva : [place], smooth, moist, intact Tongue : Smooth, pink, moist, intact Teeth : Patient has dentures Saliva : Thin, watery, plentiful NADINE CAMPOS RN - 10/27/2014 23:27 CDT Psycho/Emotional Affect/Behavior : Calm, Cooperative, Appropriate Pain Symptoms : No Feels Rested : Yes NADINE CAMPOS RN - 10/27/2014 23:27 CDT Coping Grid Identifies effective strategies : Yes Uses effective strategies : Yes Reports increase in psychological comfort : Yes Indicates sense of control : Yes Stressors perceived within control : Yes Stable mood with appropriate affect : Yes Behaviors indicate use of coping mechanism : Yes Family supportive and involved in care : Yes Values/Beliefs incorporated appropriately : Yes NADINE CAMPOS RN - 10/27/2014 23:27 CDT Safety Grid Vision, Hearing, Mobility Adequate to Meet Safety Needs : Yes NADINE CAMPOS RN - 10/27/2014 23:27 CDT Gastrointestinal GI Patient Stated Symptoms : None Abdomen Description : Symmetric Abdomen Palpation : Non-Tender, Soft Bowel Movement Last Date : 10/27/2014 CDT NADINE CAMPOS RN - 10/27/2014 23:27 CDT Nutrition Appetite : Good Eating Difficulties : None Feeding Ability : Complete independence NADINE CAMPOS RN - 10/27/2014 23:27 CDT Genitourinary Patient Stated Symptoms : None Urinary Elimination : Voiding, no difficulties Urine Color : Yellow NADINE CAMPOS RN - 10/27/2014 23:27 CDT Integumentary Integumentary Patient Stated Symptoms : Bruising, Fragile skin Skin Turgor : Non-Elastic Skin Integrity : Intact Mucous Membrane Color : [place] Mucous Membrane Description : Moist NADINE CAMPOS RN 10/27/2014 23:27 CDT Skin Abnormality/Location Grid Location : Abdomen Hand Lower arm Laterality : Left, Right Left, Right Right Abnormality : Bruising Bruising Bruising NADINE CAMPOS RN - 10/27/2014 23:27 CDT NADINE CAMPOS RN - 10/27/2014 23:27 CDT NADINE CAMPOS RN - 10/27/2014 23:27 CDT Shawn Sensory Perception Shawn : No impairment Moisture Shawn : Rarely moist Activity Shawn : Walks frequently Mobility Shawn : No limitations Nutrition Shawn : Adequate Friction and Shear Shawn : No apparent problem Shawn Score : 22 NADINE CAMPOS RN - 10/27/2014 23:27 CDT Musculoskeletal Musculoskeletal Patient Stated Symptoms : None NADINE CAMPOS RN - 10/27/2014 23:27 CDT Peripheral IV Peripheral IV Assess/Intervention Grid Peripheral IV #1 Peripheral IV #2 IV Activity : Assessment, Saline lock Discontinue Number of Attempts : 1 1 Date of Insertion : 10/27/2014 CDT 10/24/2014 CDT IV Site : Forearm Forearm Laterality : Left Left Catheter Size : 20 20 Catheter Type : Protective Other: Nexivia Site Condition : No complications Drainage Description : None Primary Tubing Changed : 10/26/2014 CDT Secondary Tubing Changed : 10/26/2014 CDT NADINE CAMPOS RN - 10/27/2014 23:27 CDT NADINE CAMPOS RN - 10/27/2014 23:27 CDT Hendrich II Fall Risk Confusion/Disorientation Hendrich [...] Fall Risk Score Hendrich II : 1 NADINE CAMPOS RN - 10/27/2014 23:27 CDT Safe Patient Handling Safe Pt Handling Independent : Yes - No equipment needed Safe Pt Handling Equipment Rec : No Equipment Needed NADINE CAMPOS RN - 10/27/2014 23:27 CDT Education General Patient Education Powergrid Topics : Medication generic/brand names, purpose, action, Plan of care, Safety, fall Individuals Taught : Patient Barriers to Learning : None evident Teaching Method : Explanation Teaching Evaluation : Verbalizes understanding NADINE CAMPOS RN - 10/27/2014 23:27 CDT Source: [facility] [employer] Document Id: [id number] CDT!137 Miscellaneous - Rajan Carl RAbimbola - 10/27/2014 4:20 PM CDT Adult Ongoing Assessment Adult Ongoing Assessment Entered On: 10/27/2014 16:28 CDT Performed On: 10/27/2014 16:20 CDT by RAJAN CARL RN Respiratory Respiratory Patient Stated Symptoms : None Respirations : Unlabored Respiratory Pattern : Regular All [place]obes Breath Sounds : Clear Cough and Deep Breathe : Not done Cough : None Sputum Amount : None Suction : None Airway : Patent RAJAN CARL RN - 10/27/2014 16:20 CDT Cardiovascular CV Patient Stated Symptoms : None Heart Rhythm : Regular Heart Sounds ICU : S1S2 Antiembolism Device Yes/No : No Nail Bed Color : [place] Capillary Refill : Less than 2 seconds RAJAN CARL RN - 10/27/2014 16:20 CDT Radial Pulse, Left : 2+ Normal Radial Pulse, Right : 2+ Normal Dorsalis Pedis Pulse, Left : 2+ Normal Dorsalis Pedis Pulse, Right : 2+ Normal RAJAN CARL RN - 10/27/2014 16:20 CDT Skin Color : Normal for ethnicity Skin Description : Normal Skin Temperature : Warm Activity Tolerance : Without distress RAJAN CARL RN - 10/27/2014 16:20 CDT Neurological Neuro Patient Stated Symptoms : None Orientation : Oriented x 3 Level of Consciousness : Alert Gait : Steady Swallowing Difficulty/Aspiration Risk : None RAJAN CARL RN - 10/27/2014 16:20 CDT [place] Coma Eye Opening Response [place] : Spontaneously Best Verbal Response [place] : Oriented Best Motor Response Marine : Obeys simple commands [place] Coma Score : 15 RAJAN CARL RN - 10/27/2014 16:20 CDT Oral Exam - Swing Bed Teeth and supporting structure for : No abnormality Oral Cavity Tissue for : No abnormality Gums for : No abnormality Partials or Dentures for : No abnormality SAMIARAJAN RN - 10/27/2014 16:20 CDT Psycho/Emotional Affect/Behavior : Calm, Cooperative, Appropriate Pain Symptoms : No Feels Rested : Yes SAMIARAJAN RN 10/27/2014 16:20 CDT Coping Grid Identifies effective strategies : Yes Uses effective strategies : Yes Reports increase in psychological comfort : Yes Indicates sense of control : Yes Stressors perceived within control : Yes Stable mood with appropriate affect : Yes Behaviors indicate use of coping mechanism : Yes Family supportive and involved in care : Yes Values/Beliefs incorporated appropriately : Yes RAJAN CARL RN 10/27/2014 16:20 CDT Safety Grid Vision, Hearing, Mobility Adequate to Meet Safety Needs : Yes RAJAN CARL RN - 10/27/2014 16:20 CDT Psycho/Emotional Detailed Assessment : Yes RAJAN CARL RN 10/27/2014 16:20 CDT Psycho/Emotional Detailed Hallucinations Present : None Orientation : Oriented x 3 Participates in Age-specific Activities : Yes Cognition : Adequate concentration, Judgement appropriate, Motivated for treatment Behavior & General Appearance : Appropriate for situation, Social with peers and staff, interacts appropriately, ADLs self-initiated Behavior/Interaction with Peers/Staff Appropriate : Yes Sleep Assessment : Slept well 6 or more consecutive hours Memory : nursing home memory intact, Short term memory intact Thought Process Intact : Yes SAMIATRAVIS DESIRSIMRAN Zafar RN - 10/27/2014 16:20 CDT Suicide Risk Re-Assessment Ongoing Behaviors/Threats of Harm to Self : No Behaviors/Threats of Harm to Others : No Do you have a plan for suicide? : No RAJAN CARL RN - 10/27/2014 16:20 CDT Gastrointestinal GI Patient Stated Symptoms : None Abdomen Description : Flat Abdomen Palpation : Non-Tender, Soft Bowel Movement Last Date : 10/27/2014 CDT Bowel Sounds All Quadrants : Present Passing Flatus : Yes RAJAN CRAL RN 10/27/2014 16:20 CDT Nutrition Home Diet : Regular Appetite : Excellent Eating Difficulties : None Feeding Ability : Complete independence RAJAN CARL RN 10/27/2014 16:20 CDT Genitourinary Patient Stated Symptoms : None Urinary Elimination : Voiding, no difficulties Urine Color : Yellow Urine Description : Clear Urine Odor : Odorless Bladder Distention : Absent RAJAN CARL DEONNA - 10/27/2014 16:20 CDT Integumentary Integumentary Patient Stated Symptoms : Bruising Skin Turgor : Elastic Skin Integrity : Intact Mucous Membrane Color : [place] Mucous Membrane Description : Moist RAJAN CARL DEONNA - 10/27/2014 16:20 CDT Skin Abnormality/Location Grid Location : Abdomen Hand Lower arm Laterality : Left, Right Left, Right Right Abnormality : Bruising Bruising Bruising RAJAN CARL DEONNA - 10/27/2014 16:20 CDT RAJAN CARL DEONNA - 10/27/2014 16:20 CDT RAJAN CARL N - 10/27/2014 16:20 CDT Skin Color : Normal for ethnicity Skin Description : Normal Skin Temperature : Warm RAJAN CARL DEONNA - 10/27/2014 16:20 CDT Shawn Sensory Perception Shawn : No impairment Moisture Shawn : Rarely moist Activity Shawn : Walks frequently Mobility Shawn : Slightly limited Nutrition Shawn : Adequate Friction and Shear Shawn : No apparent problem Shawn Score : 21 RAJAN CARL DEONNA - 10/27/2014 16:20 CDT Musculoskeletal Musculoskeletal Patient Stated Symptoms : None Activity Tolerance : Without distress RAJAN CARL DEONNA - 10/27/2014 16:20 CDT Peripheral IV Peripheral IV Assess/Intervention Grid Peripheral IV #1 Peripheral IV #2 IV Activity : Start, Saline lock Discontinue Number of Attempts : 1 1 Date of Insertion : 10/27/2014 CDT 10/24/2014 CDT IV Site : Forearm Forearm Laterality : Left Left Catheter Size : 20 20 Catheter Type : Protective Other: Nexivia Primary Tubing Changed : 10/26/2014 CDT Secondary Tubing Changed : 10/26/2014 CDT RAJAN CARL DEONNA - 10/27/2014 16:20 CDT RAJAN CARL DEONNA - 10/27/2014 16:20 CDT Hendrich II Fall Risk Confusion/Disorientation Hendrich [...] Fall Risk Score Hendrich II : 1 RAJAN CARL RN - 10/27/2014 16:20 CDT Safe Patient Handling Safe Pt Handling Independent : Yes - No equipment needed Safe Pt Handling Equipment Rec : No Equipment Needed Repositioning Device Recommended : No RAJAN CARL RN - 10/27/2014 16:20 CDT Education General Patient Education Powergrid Topics : Activity limitations/expectations, Equipment, Exercise, Infection Control Processes, Invasive line care, Medication dosage, route, scheduling, Medication generic/brand names, purpose, action, Medication preadministration procedures, Medication precautions, side effects, food/drug interaction, Medication special administration, storage, Nutrition/Diet, Pain Management, Turn/Cough/Deep breathing, Unit procedures, Use of pain scale(s) Individuals Taught : Patient Barriers to Learning : None evident Teaching Method : Explanation Teaching Evaluation : Able to teach back, Verbalizes understanding RAJAN CARL RN - 10/27/2014 16:20 CDT Source: [employer] Document Id: [id number] CDT!168 Miscellaneous - Evelyn Montano R.N. - 10/27/2014 4:05 PM CDT Adult Ongoing Assessment Adult Ongoing Assessment Entered On: 10/27/2014 16:06 CDT Performed On: 10/27/2014 16:05 CDT by EVELYN MONTANO RN Cardiovascular Antiembolism Device Yes/No : No EVELYN MONTANO RN - 10/27/2014 16:05 CDT Psycho/Emotional Pain Symptoms : No EVELYN MONTANO RN - 10/27/2014 16:05 CDT Peripheral IV Peripheral IV Assess/Intervention Grid Peripheral IV #1 Peripheral IV #2 IV Activity : Start, Saline lock Assessment, Saline lock Number of Attempts : 1 1 Date of Insertion : 10/27/2014 CDT 10/24/2014 CDT IV Site : Forearm Forearm Laterality : Left Left Catheter Size : 20 20 Catheter Type : Protective Other: Nexivia Site Condition : No complications Primary Tubing Changed : 10/26/2014 CDT Secondary Tubing Changed : 10/26/2014 CDT EVELYN MONTANO RN - 10/27/2014 16:05 CDT EVELYN MONTANO RN - 10/27/2014 16:05 CDT Source: [employer] Document Id: [id number] CDT!26 Miscellaneous - Lily Morton, O.T. - 10/27/2014 1:55 PM CDT Activity Participation Activity Participation Entered On: 10/27/2014 13:55 CDT Performed On: 10/27/2014 13:55 CDT by LILY MORTON OT Activity Participation Recreational Activity - Restorative : Visitors Activities offered by - Recreational : Occupational Therapy Patient Participation - Recreational : Yes Treatment Response - Recreational : Expected LILY MORTON OT - 10/27/2014 13:55 CDT Source: [employer] Document Id: [id number] CDT!6 Miscellaneous - Rajan Carl R.Cyndi. - 10/27/2014 8:00 AM CDT Adult Ongoing Assessment Adult Ongoing Assessment Entered On: 10/27/2014 10:34 CDT Performed On: 10/27/2014 8:00 CDT by RAJAN CARL RN Respiratory Respiratory Patient Stated Symptoms : None Respirations : Unlabored Respiratory Pattern : Regular All Lobes Breath Sounds : Clear Cough : None Sputum Amount : None Suction : None Airway : Patent Respiratory Detailed Assessment : Yes RAJAN CARL RN - 10/27/2014 10:20 CDT Cardiovascular CV Patient Stated Symptoms : None Heart Rhythm : Regular Heart Sounds ICU : S1S2 Antiembolism Device Yes/No : No Nail Bed Color : [place] Capillary Refill : Less than 2 seconds Edema Assessment : No RAJAN CARL RN - 10/27/2014 10:20 CDT Radial Pulse, Left : 2+ Normal Radial Pulse, Right : 2+ Normal Dorsalis Pedis Pulse, Left : 2+ Normal Dorsalis Pedis Pulse, Right : 2+ Normal RAJAN CARL RN 10/27/2014 10:20 CDT Skin Color : Normal for ethnicity Skin Description : Normal Skin Temperature : Warm Activity Tolerance : Without distress RAJAN CARL RN 10/27/2014 10:20 CDT Neurological Neuro Patient Stated Symptoms : None Orientation : Oriented x 3 Level of Consciousness : Alert Gait : Steady Swallowing Difficulty/Aspiration Risk : None RAJAN CARL RN 10/27/2014 10:20 CDT [place] Com[place] Eye Opening Response [place] : Spontaneously Best Verbal Response [place] : Oriented Best Motor Response [place] : Obeys simple commands [place] Coma Score : 15 RAJAN CARL RN 10/27/2014 10:20 CDT Oral Exam - Swing Bed Teeth and supporting structure for : No abnormality Oral Cavity Tissue for : No abnormality Gums for : No abnormality Partials or Dentures for : No abnormality RAJAN CARL RN 10/27/2014 10:20 CDT Psycho/Emotional Affect/Behavior : Calm, Cooperative, Appropriate Pain Symptoms : No Feels Rested : Yes RAJAN CARL RN 10/27/2014 10:20 CDT Coping Grid Identifies effective strategies : Yes Uses effective strategies : Yes Reports increase in psychological comfort : Yes Indicates sense of control : Yes Stressors perceived within control : Yes Stable mood with appropriate affect : Yes Behaviors indicate use of coping mechanism : Yes Family supportive and involved in care : Yes Values/Beliefs incorporated appropriately : Yes RAJAN CARL RN 10/27/2014 10:20 CDT Safety Grid Vision, Hearing, Mobility Adequate to Meet Safety Needs : No (Comment: glasses [RAJAN CARL RN 10/27/2014 10:20 CDT] ) RAJAN CARL RN 10/27/2014 10:20 CDT Psycho/Emotional Detailed Assessment : Yes RAJAN CARL RN 10/27/2014 10:20 CDT Psycho/Emotional Detailed Hallucinations Present : None Orientation : Oriented x 3 Participates in Age-specific Activities : Yes Cognition : Adequate concentration, Judgement appropriate, Motivated for treatment Behavior & General Appearance : Appropriate for situation Behavior/Interaction with Peers/Staff Appropriate : Yes Sleep Assessment : Slept well 6 or more consecutive hours 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 : No RAJAN CARL RN - 10/27/2014 10:20 CDT Gastrointestinal GI Patient Stated Symptoms : None Abdomen Description : Flat Abdomen Palpation : Non-Tender, Soft Bowel Movement Last Date : 10/27/2014 CDT Bowel Sounds All Quadrants : Present Passing Flatus : Yes RAJAN CARL RN - 10/27/2014 10:20 CDT Nutrition Home Diet : Regular Appetite : Excellent Eating Difficulties : None Feeding Ability : Complete independence RAJAN CARL RN - 10/27/2014 10:20 CDT Genitourinary Patient Stated Symptoms : None Urinary Elimination : Voiding, no difficulties Bladder Distention : Absent RAJAN CARL RN - 10/27/2014 10:20 CDT Shawn Sensory Perception Shawn : No impairment Moisture Shawn : Rarely moist Activity Shawn : Walks frequently Mobility Shawn : No limitations Nutrition Shawn : Excellent Friction and Shear Shawn : No apparent problem Shawn Score : 23 RAJAN CARL RN - 10/27/2014 10:20 CDT Musculoskeletal Musculoskeletal Patient Stated Symptoms : None Activity Tolerance : Without distress RAJAN CARL RN - 10/27/2014 10:20 CDT Peripheral IV Peripheral IV Assess/Intervention Grid Peripheral IV #1 Peripheral IV #2 IV Activity : Assessment, Saline lock Number of Attempts : 1 Date of Insertion : 10/24/2014 CDT IV Site : Hand Forearm Laterality : Left Catheter Size : 20 20 Catheter Type : Butterfly Other: Nexivia Site Condition : No complications Drainage Description : None Primary Tubing Changed : 10/26/2014 CDT Secondary Tubing Changed : 10/26/2014 CDT Site/Line Care : Primary tubing changed, Secondary tubing changed Dressing/ Activity : Dry, Intact, Transparent, Reinforced Flow/ Patency : No complications RAJAN CARL RN - 10/27/2014 10:20 CDT RAJAN CARL RN - 10/27/2014 10:20 CDT Hendrich II Fall Risk Confusion/Disorientation Hendrich : No Depression Fall Risk Hendrich : No Altered Elimination Fall Risk Hendrich : Yes Dizziness/Vertigo Fall Risk Hendrich : No Gender, Male Fall Risk Hendrich : No Prescribed Antiepileptics Hendrich : No Prescribed Benzodiazepines Hendrich : No Rising From Chair Fall Risk Hendrich : Able to rise in a single movement, no loss of balance with steps Fall Risk Score Russell II : 1 RAJAN CARL RN - 10/27/2014 10:20 CDT Safe Patient Handling Safe Pt Handling Independent : Yes - No equipment needed Safe Pt Handling Equipment Rec : No Equipment Needed Repositioning Device Recommended : No RAJAN CARL RN - 10/27/2014 10:20 CDT Education General Patient Education Powergrid Topics : Activity limitations/expectations, Diagnostic results, Exercise, Medication dosage, route, scheduling, Medication generic/brand names, purpose, action, Medication preadministration procedures,Medication precautions, side effects, food/drug interaction, Medication special administration, storage, Nutrition/Diet, Oral care, Plan of care, Safety, fall, Turn/Cough/Deep breathing, Unit procedures, Use of pain scale(s) Individuals Taught : Patient, Daughter Barriers to Learning : None evident Teaching Method : Explanation Teaching Evaluation : Verbalizes understanding RAJAN CARL RN - 10/27/2014 10:20 CDT [facility] Telephone & TelegraphCHART Document Id: [id number] CDT!145 Miscellaneous - Nadine Campos RXeniaNXenia - 10/26/2014 11:42 PM CDT Adult Ongoing Assessment Adult Ongoing Assessment Entered On: 10/26/2014 23:46 CDT Performed On: 10/26/2014 23:42 CDT by NADINE CAMPOS RN Respiratory Respiratory Patient Stated Symptoms : None Respirations : Unlabored All Lobes Breath Sounds : Clear Cough : Occasional, Weak Sputum Amount : None Suction : None Airway : Patent NADINE CAMPOS RN - 10/26/2014 23:42 CDT Cardiovascular CV Patient Stated Symptoms : None Heart Rhythm : Regular Antiembolism Device Yes/No : No Nail Bed Color : [place] Capillary Refill : Less than 2 seconds Edema Assessment : No NADINE CAMPOS RN - 10/26/2014 23:42 CDT Radial Pulse, Left : 2+ Normal Radial Pulse, Right : 2+ Normal Dorsalis Pedis Pulse, Left : 2+ Normal Dorsalis Pedis Pulse, Right : 2+ Normal JERICHONADINE HADDAD Jaspreet 10/26/2014 23:42 CDT Skin Color : Normal for ethnicity Skin Description : Normal Skin Temperature : Warm Activity Tolerance : Minimal distress JERICHONADINE HADDAD Jaspreet RN - 10/26/2014 23:42 CDT Neurological Neuro Patient Stated Symptoms : None Orientation : Oriented x 3 Level of Consciousness : Alert Gait : Steady Swallowing Difficulty/Aspiration Risk : None NADINE CAMPOS 10/26/2014 23:42 CDT Oral Assessment Lips : Smooth, pink, moist, intact Tongue : Smooth, pink, moist, intact Saliva : Thin, watery, plentiful NADINE CAMPOS 10/26/2014 23:42 CDT Psycho/Emotional Affect/Behavior : Calm, Cooperative, Appropriate Pain Symptoms : No Feels Rested : Yes NADINE CAMPOS RN 10/26/2014 23:42 CDT Coping Grid Identifies effective strategies : Yes Uses effective strategies : Yes Reports increase in psychological comfort : Yes Indicates sense of control : Yes Stressors perceived within control : Yes Stable mood with appropriate affect : Yes Behaviors indicate use of coping mechanism : Yes Family supportive and involved in care : Yes Values/Beliefs incorporated appropriately : Yes NADINE CAMPOS RN - 10/26/2014 23:42 CDT Safety Grid Vision, Hearing, Mobility Adequate to Meet Safety Needs : Yes NADINE CAMPOS RN 10/26/2014 23:42 CDT Gastrointestinal GI Patient Stated Symptoms : None Abdomen Palpation : Non-Tender, Soft Bowel Movement Last Date : 10/26/2014 CDT Bowel Sounds All Quadrants : Hyperactive NADINE CAPMOS RN 10/26/2014 23:42 CDT Nutrition Appetite : Good Eating Difficulties : None Feeding Ability : Complete independence NADINE CAMPOS 10/26/2014 23:42 CDT Genitourinary Patient Stated Symptoms : None Urinary Elimination : Voiding, no difficulties NADINE CAMPOS RN - 10/26/2014 23:42 CDT Integumentary Integumentary Patient Stated Symptoms : Bruising Skin Turgor : Non-Elastic Skin Integrity : Intact Mucous Membrane Color : [place] Mucous Membrane Description : Moist NADINE CAMPOS RN - 10/26/2014 23:42 CDT Skin Abnormality/Location Grid Location : Abdomen Hand Lower arm Laterality : Left, Right Left, Right Right Abnormality : Bruising Bruising Bruising NADINE CAMPOS RN - 10/26/2014 23:42 CDT NADINE CAMPOS RN - 10/26/2014 23:42 CDT NADINE CAMPOS RN - 10/26/2014 23:42 CDT Shawn Sensory Perception Shawn : No impairment Moisture Shawn : Rarely moist Activity Shawn : Walks frequently Mobility Shawn : No limitations Nutrition Shawn : Adequate Friction and Shear [place] : No apparent problem Shawn Score : 22 NADINE CAMPOS RN - 10/26/2014 23:42 CDT Peripheral IV Peripheral IV Assess/Intervention Grid Peripheral IV #1 Peripheral IV #2 IV Activity : Start Assessment, Saline lock Number of Attempts : 1 Date of Insertion : 10/24/2014 CDT IV Site : Hand Forearm Laterality : Left Catheter Size : 20 20 Catheter Type : Butterfly Other: Nexivia Site Condition : No complications Drainage Description : None Primary Tubing Changed : 10/26/2014 CDT Secondary Tubing Changed : 10/26/2014 CDT Dressing/ Activity : Dry, Intact, Transparent Flow/ Patency : No complications NADINE CAMPOS RN - 10/26/2014 23:42 CDT NADINE CAMPOS RN - 10/26/2014 23:42 CDT Hendrich II Fall Risk Confusion/Disorientation Hendrich [...] Fall Risk Score Hendrich II : 1 NADINE CAMPOS RN - 10/26/2014 23:42 CDT Safe Patient Handling Safe Pt Handling Independent : Yes - No equipment needed Safe Pt Handling Equipment Rec : No Equipment Needed NADINE CAMPOS RN - 10/26/2014 23:42 CDT Education General Patient Education Powergrid Topics : Medication generic/brand names, purpose, action, Plan of care, Safety, fall Individuals Taught : Patient Barriers to Learning : Hearing deficit Teaching Method : Explanation Teaching Evaluation : Verbalizes understanding NADINE CAMPOS RN - 10/26/2014 23:42 CDT Source: [facility] [employer] Document Id: [id number] CDT!132 Jarod - Charissa Carlisle - 10/26/2014 5:39 PM CDT Spiritual Care Assessment Spiritual Care Assessment Entered On: 10/26/2014 17:40 CDT Performed On: 10/26/2014 17:39 CDT by CHARISSA CARLISLE Assessment Pastoral Care Assessment : Patient/Family Assessment Pastoral Care Referral : Making Rounds Spiritual Beliefs/Strengths : Kandi in God, Family supports, Sense of Humor Patient/Family Coping Skills : Frustration, Living transition/coping Services Requested : Listening / Spiritual Counseling Pastoral Intervention Provided : Active Listening, [place] / Pastoral Presence, Ongoing supportive spiritual care Pastoral Care Plan : No Follow Up Needed CHARISSA CARLISLE - 10/26/2014 17:39 CDT [facility] Document Id: [id number] CDT!9 Miscellaneous - Amari Gallo, R.N. - 10/26/2014 4:40 PM CDT Adult Ongoing Assessment Adult Ongoing Assessment Entered On: 10/26/2014 17:18 CDT Performed On: 10/26/2014 16:40 CDT by AMARI GALLO RN Respiratory Respiratory Patient Stated Symptoms : None Respirations : Unlabored Respiratory Pattern : Regular All Lobes Breath Sounds : Clear Cough : None AMARI GALLO RN - 10/26/2014 17:15 CDT Cardiovascular CV Patient Stated Symptoms : None Heart Rhythm : Regular Antiembolism Device Yes/No : No Nail Bed Color : [place] Capillary Refill : Less than 2 seconds Edema Assessment : No AMARI GALLO RN - 10/26/2014 17:15 CDT Radial Pulse, Left : 2+ Normal Radial Pulse, Right : 2+ Normal Dorsalis Pedis Pulse, Left : 2+ Normal Dorsalis Pedis Pulse, Right : 2+ Normal AMARI GALLO Marvin YING - 10/26/2014 17:15 CDT Skin Color : Normal for ethnicity, [place] Skin Description : Dry Skin Temperature : Warm Activity Tolerance : Without distress GALLOAMARI Marvin YING - 10/26/2014 17:15 CDT Neurological Neuro Patient Stated Symptoms : None Orientation : Oriented x 3 Level of Consciousness : Alert Gait : Steady Swallowing Difficulty/Aspiration Risk : None GALLOAMARI Marvin YING - 10/26/2014 17:15 CDT Psycho/Emotional Affect/Behavior : Calm, Cooperative, Appropriate Pain Symptoms : No Feels Rested : Yes GALLOAMARI Marvin YING - 10/26/2014 17:15 CDT Coping Grid Identifies effective strategies : Yes Uses effective strategies : Yes Reports increase in psychological comfort : Yes Indicates sense of control : Yes Stressors perceived within control : Yes Stable mood with appropriate affect : Yes Behaviors indicate use of coping mechanism : Yes Family supportive and involved in care : Yes Values/Beliefs incorporated appropriately : Yes GALLOAMARI Marvin YING - 10/26/2014 17:15 CDT Safety Grid Vision, Hearing, Mobility Adequate to Meet Safety Needs : Yes GALLO, AMARI Marvin YING - 10/26/2014 17:15 CDT Gastrointestinal GI Patient Stated Symptoms : None Abdomen Description : Symmetric Abdomen Palpation : Non-Tender, Tender Bowel Movement Last Date : 10/26/2014 CDT Emesis Description : Blood-Tinged Bowel Sounds All Quadrants : Present Stool Color : Brown Stool Description : Loose Stool Amount : Small CLEO AMARI Marvin YING - 10/26/2014 17:15 CDT Nutrition Home Diet : Regular GALLOAMARI Marvin YING 10/26/2014 17:15 CDT Genitourinary Patient Stated Symptoms : None Urinary Elimination : Voiding, no difficulties GALLO, AMARI Marvin YING - 10/26/2014 17:15 CDT Integumentary Integumentary Patient Stated Symptoms : None Skin Turgor : Elastic Skin Integrity : Intact Mucous Membrane Color : [place] Mucous Membrane Description : Moist GALLO, AMARI Marvin YING - 10/26/2014 17:15 CDT Skin Abnormality/Location Grid Location : Abdomen Hand Lower arm Laterality : Left, Right Left, Right Right Abnormality : Bruising Bruising Bruising AMARI GALLO RN - 10/26/2014 17:15 CDT CLEO AMARI Marvin YING - 10/26/2014 17:15 CDT CLEO AMARI Marvin YING - 10/26/2014 17:15 CDT Shawn Sensory Perception Shawn : No impairment Moisture Shawn : Rarely moist Activity Shawn : Walks frequently Mobility Shawn : No limitations Nutrition Shawn : Excellent Friction and Shear Shawn : No apparent problem Shawn Score : 23 AMARI GALLO RN - 10/26/2014 17:15 CDT Peripheral IV Peripheral IV Assess/Intervention Grid Peripheral IV #1 Peripheral IV #2 IV Activity : Start Assessment, Saline lock Number of Attempts : 1 Date of Insertion : 10/24/2014 CDT IV Site : Hand Forearm Laterality : Left Catheter Size : 20 20 Catheter Type : Butterfly Other: Nexivia Primary Tubing Changed : 10/26/2014 CDT Secondary Tubing Changed : 10/26/2014 CDT Flow/ Patency : No complications AMARI GALLO RN - 10/26/2014 17:15 CDT AMARI GALLO RN - 10/26/2014 17:15 CDT Hendrich II Fall Risk Confusion/Disorientation Hendrich [...] Fall Risk Score Hendrich II : 1 GALLO AMARI Wong RN - 10/26/2014 17:15 CDT Safe Patient Handling Safe Pt Handling Independent : Yes - No equipment needed Safe Pt Handling Equipment Rec : No Equipment Needed AMARI GALLO RN - 10/26/2014 17:15 CDT Source: [employer] Document Id: [id number] CDT!118 Miscellaneous - Antonio Hendricks - 10/26/2014 10:15 AM CDT Adult Activities of Daily Living Adult Activities of Daily Living Entered On: 10/26/2014 15:25 CDT Performed On: 10/26/2014 10:15 CDT by ANTONIO HENDRICKS TANK ERECTOR ADLs I Patient Position : Elevate head of bed 30 degrees, Sitting in bed Activity Status ADL : Ambulating in [place], Ambulating in room, Up ad anu, Up to chair Activity Assistance : Independent Assistive Device : None Range of Motion LUE : Active Range of Motion RUE : Active Range of Motion LLE : Active Range of Motion RLE : Active Ambulation Distance : 60 m(Converted to: 196 ft 10 inch(es), 6,000 cm) Ambulation Patient Effort : ANTONIO Rosas TANK ERECTOR - 10/26/2014 15:23 CDT ADLs II Hygiene Assistance Grid Foot Care : Independent Hair Care : Independent Oral Care : Independent Catrina Care : Independent Shower : Independent Upper Body Dressing(Clothing) : Independent Lower Body Dressing(Clothing) : Independent ANTONIO HENDRICKS TANK ERECTOR - 10/26/2014 15:23 CDT Bowel Movement Last Date : 10/26/2014 CDT Standard Safety : Call device within reach, ID band check ANTONIO HENDRICKS TANK ERECTOR - 10/26/2014 15:23 CDT Source: [employer] Document Id: [id number] CDT!23 Miscellaneous - Amari Gallo R.N. - 10/26/2014 10:00 AM CDT Adult Activities of Daily Living Adult Activities of Daily Living Entered On: 10/26/2014 11:05 CDT Performed On: 10/26/2014 10:00 CDT by AMARI GALLO RN ADLs I Patient Position : Sitting in bed Activity Status ADL : Ambulating in [place], Ambulating in room Activity Assistance : Independent Assistive Device : None Ambulation Patient Effort : AMARI River RN - 10/26/2014 11:04 CDT ADLs II Bowel Movement Last Date : 10/26/2014 CDT Standard Safety : Bed in low position, Call device within reach, ID band check, Non-Slip footwear, Rounds every 1 hour AMARI GALLO RN - 10/26/2014 11:04 CDT ADLs Adult Nutrition Diet Type : Diet -- 10/24/14 9:26:00 CDT, General (No Restrictions) AMARI GALLO RN - 10/26/2014 11:04 CDT Source: [facility] [employer] Document Id: [id number] CDT!12 Miscellaneous - Amari Gallo R.N. - 10/26/2014 9:45 AM CDT Adult Ongoing Assessment Adult Ongoing Assessment Entered On: 10/26/2014 10:01 CDT Performed On: 10/26/2014 9:45 CDT by AMARI GALLO RN Respiratory Respiratory Patient Stated Symptoms : None Respirations : Unlabored Respiratory Pattern : Regular All [place]obes Breath Sounds : Clear Cough : None Sputum Amount : None AMARI GALLO RN - 10/26/2014 9:58 CDT Cardiovascular CV Patient Stated Symptoms : None Heart Rhythm : Regular Antiembolism Device Yes/No : No Nail Bed Color : [place] Capillary Refill : Less than 2 seconds Edema Assessment : No AMARI GALLO RN - 10/26/2014 9:58 CDT Radial Pulse, Left : 2+ Normal Radial Pulse, Right : 2+ Normal Dorsalis Pedis Pulse, Left : 2+ Normal Dorsalis Pedis Pulse, Right : 2+ Normal AMARI GALLO RN - 10/26/2014 9:58 CDT Skin Color : Normal for ethnicity, [place] Skin Description : Dry Skin Temperature : Warm Activity Tolerance : Without distress AMARI GALLO RN - 10/26/2014 9:58 CDT Neurological Neuro Patient Stated Symptoms : None Orientation : Oriented x 3 Level of Consciousness : Alert Gait : Steady Swallowing Difficulty/Aspiration Risk : None AMARI GALLO RN - 10/26/2014 9:58 CDT Oral Exam - Swing Bed Teeth and supporting structure for : No abnormality Oral Cavity Tissue for : No abnormality Gums for : No abnormality Partials or Dentures for : No abnormality AMARI GALLO RN - 10/26/2014 9:58 CDT Psycho/Emotional Affect/Behavior : Calm, Cooperative, Appropriate Pain Symptoms : No Feels Rested : Yes AMARI GALLO RN - 10/26/2014 9:58 CDT Coping Grid Identifies effective strategies : Yes Uses effective strategies : Yes Reports increase in psychological comfort : Yes Indicates sense of control : Yes Stressors perceived within control : Yes Stable mood with appropriate affect : Yes Behaviors indicate use of coping mechanism : Yes Family supportive and involved in care : Yes Values/Beliefs incorporated appropriately : Yes AMARI GALLO DEONNA - 10/26/2014 9:58 CDT Safety Grid Vision, Hearing, Mobility Adequate to Meet Safety Needs : Yes AMARI GALLO DEONNA - 10/26/2014 9:58 CDT Gastrointestinal Passing Flatus : No AMARI GALLO Marvin YING 10/26/2014 10:01 CDT GI Patient Stated Symptoms : None Abdomen Description : Symmetric Abdomen Palpation : Non-Tender, Soft Bowel Movement Last Date : 10/25/2014 CDT Bowel Sounds All Quadrants : Hyperactive AMARI GALLO Marvin 10/26/2014 9:58 CDT Nutrition Home Diet : Regular Appetite : Good Eating Difficulties : None Feeding Ability : Complete independence AMARI GALLO Marvin YING - 10/26/2014 9:58 CDT Genitourinary Patient Stated Symptoms : None Urinary Elimination : Voiding, no difficulties AMARI GALLO Marvin YING 10/26/2014 9:58 CDT Integumentary Integumentary Patient Stated Symptoms : None Skin Turgor : Elastic Skin Integrity : Intact Mucous Membrane Color : [place] Mucous Membrane Description : Moist AMARI GALLO Marvin YING 10/26/2014 9:58 CDT Skin Abnormality/Location Grid Location : Abdomen Hand Lower arm Laterality : Left, Right Left, Right Right Abnormality : Bruising Bruising Bruising AMARI GALLO Marvin YING - 10/26/2014 9:58 CDT AMARI GALLO Marvin YING - 10/26/2014 9:58 CDT AMARI GALLO Marvin YING 10/26/2014 9:58 CDT Shawn Sensory Perception Shawn : No impairment Moisture Shawn : Rarely moist Activity Shawn : Walks frequently Mobility Shawn : No limitations Nutrition Shawn : Excellent Friction and Shear Shawn : No apparent problem Shawn Score : 23 AMARI GALLO Marvin YING 10/26/2014 9:58 CDT Peripheral IV Peripheral IV Assess/Intervention Grid Peripheral IV #1 Peripheral IV #2 IV Activity : Start Assessment, Saline lock Number of Attempts : 1 Date of Insertion : 10/24/2014 CDT IV Site : Hand Forearm Laterality : Left Catheter Size : 20 20 Catheter Type : Butterfly Other: Nexivia Site Condition : No complications Drainage Description : None Primary Tubing Changed : 10/26/2014 CDT Secondary Tubing Changed : 10/26/2014 CDT Dressing/ Activity : Dry Flow/ Patency : No complications AMARI GALLO RN - 10/26/2014 9:58 CDT AMARI GALLO RN - 10/26/2014 9:58 CDT Hendrich II Fall Risk Confusion/Disorientation Hendrich [...] Fall Risk Score Hendrich II : 1 AMARI GALOL RN - 10/26/2014 9:58 CDT Safe Patient Handling Safe Pt Handling Independent : Yes - No equipment needed Safe Pt Handling Equipment Rec : No Equipment Needed AMARI GALLO RN - 10/26/2014 9:58 CDT Source: [employer] Document Id: [id number] CDT!3 Miscellaneous - Nadine Campos RXeniaNXenia - 10/25/2014 11:44 PM CDT Adult Ongoing Assessment Adult Ongoing Assessment Entered On: 10/25/2014 21:33 CDT Performed On: 10/25/2014 23:44 CDT by NADINE CAMPOS RN Respiratory Respiratory Patient Stated Symptoms : None Respirations : Unlabored Respiratory Pattern : Regular All Lobes Breath Sounds : Clear Cough : None Sputum Amount : None Suction : None Airway : Patent NADINE CAMPOS RN - 10/25/2014 21:26 CDT Cardiovascular CV Patient Stated Symptoms : None Heart Rhythm : Regular Antiembolism Device Yes/No : No Nail Bed Color : [place] Capillary Refill : Less than 2 seconds Edema Assessment : No NADINE CAMPOS RN - 10/25/2014 21:26 CDT Radial Pulse, Left : 2+ Normal Radial Pulse, Right : 2+ Normal Dorsalis Pedis Pulse, Left : 2+ Normal Dorsalis Pedis Pulse, Right : 2+ Normal NADINE CAMPOS RN - 10/25/2014 21:26 CDT Skin Color : Normal for ethnicity Skin Description : Dry Skin Temperature : Warm Activity Tolerance : Minimal distress JERICHOKANWAL HADDADJaspreet Vogel RN - 10/25/2014 21:26 CDT Neurological Neuro Patient Stated Symptoms : None Orientation : Oriented x 3 Level of Consciousness : Alert Gait : Steady Swallowing Difficulty/Aspiration Risk : None NADINE CAMPOS 10/25/2014 21:26 CDT Oral Assessment Lips : Smooth, pink, moist, intact Gingiva : [place], smooth, moist, intact Tongue : Smooth, pink, moist, intact Teeth : Patient has dentures Saliva : Thin, watery, plentiful NADINE CAMPOS 10/25/2014 21:26 CDT Psycho/Emotional Affect/Behavior : Calm, Cooperative, Appropriate Pain Symptoms : No Feels Rested : Yes NADINE CAMPOS 10/25/2014 21:26 CDT Coping Grid Identifies effective strategies : Yes Uses effective strategies : Yes Reports increase in psychological comfort : Yes Indicates sense of control : Yes Stressors perceived within control : Yes Stable mood with appropriate affect : Yes Behaviors indicate use of coping mechanism : Yes Family supportive and involved in care : Yes Values/Beliefs incorporated appropriately : Yes NADINE CAMPOS 10/25/2014 21:26 CDT Safety Grid Vision, Hearing, Mobility Adequate to Meet Safety Needs : Yes NADINE CAMPOS 10/25/2014 21:26 CDT Gastrointestinal GI Patient Stated Symptoms : None Abdomen Description : Symmetric Abdomen Palpation : Non-Tender, Soft Bowel Movement Last Date : 10/25/2014 CDT Bowel Sounds All Quadrants : Present NADINE CAMPOS 10/25/2014 21:26 CDT Nutrition Appetite : Good Eating Difficulties : None Feeding Ability : Complete independence NADINE CAMPOS 10/25/2014 21:26 CDT Genitourinary Patient Stated Symptoms : None Urinary Elimination : Voiding, no difficulties NADINE CAMPOS 10/25/2014 21:26 CDT Integumentary Integumentary Patient Stated Symptoms : Bruising Skin Integrity : Intact Mucous Membrane Color : [place] Mucous Membrane Description : Moist NADINE CAMPOS 10/25/2014 21:26 CDT Skin Abnormality/Location Grid Location : Abdomen Hand Lower arm Laterality : Left, Right Left, Right Right Abnormality : Bruising Bruising Bruising NADINE CAMPOS RN - 10/25/2014 21:26 CDT NADINE CAMPOS RN - 10/25/2014 21:26 CDT NADINE CAMPOS RN 10/25/2014 21:26 CDT Shawn Sensory Perception Shawn : No impairment Moisture Shawn : Rarely moist Activity Shawn : Walks frequently Mobility Shawn : No limitations Nutrition Shawn : Adequate Friction and Shear Shawn : No apparent problem Shawn Score : 22 NADINE CAMPOS RN - 10/25/2014 21:26 CDT Musculoskeletal Musculoskeletal Patient Stated Symptoms : None NADINE CAMPOS RN 10/25/2014 21:26 CDT Peripheral IV Peripheral IV Assess/Intervention Grid Peripheral IV #1 Peripheral IV #2 IV Activity : Start Assessment, Saline lock Number of Attempts : 1 Date of Insertion : 10/24/2014 CDT IV Site : Hand Forearm Laterality : Left Catheter Size : 20 20 Catheter Type : Butterfly Other: Nexivia Dressing/ Activity : Dry, Intact, Transparent Flow/ Patency : No complications NADINE CAMPOS RN - 10/25/2014 23:42 CDT NADINE CAMPOS RN 10/25/2014 21:26 CDT Hendrich II Fall Risk Confusion/Disorientation Hendrich [...] Fall Risk Score Hendrich II : 1 NADINE CAMPOS RN - 10/25/2014 21:26 CDT Safe Patient Handling Safe Pt Handling Equipment Rec : No Equipment Needed NADINE CAMPOS RN 10/25/2014 23:42 CDT Safe Pt Handling Independent : Yes - No equipment needed NDAINE CAMPOS RN 10/25/2014 21:26 CDT Education General Patient Education Powergrid Topics : Medication generic/brand names, purpose, action, Pain Management, Plan of care, Printed materials, Safety, fall Individuals Taught : Patient Barriers to Learning : None evident Teaching Method : Explanation, Printed materials Teaching Evaluation : Verbalizes understanding NADINE CAMPOS RN - 10/25/2014 21:26 CDT Source: [employer] Document Id: [id number] CDT!133 Silvina Smith - 10/25/2014 10:23 PM CDT Adult Activities of Daily Living Adult Activities of Daily Living Entered On: 10/25/2014 22:25 CDT Performed On: 10/25/2014 22:23 CDT by SILVINA DIGGS ADLs I Patient Position : Elevate head of bed 30 degrees, Supine Activity Status ADL : Ambulating in [place], Ambulating in room, Bathroom privileges Activity Assistance : Independent Range of Motion LUE : Active Range of Motion RUE : Active Range of Motion LLE : Active Range of Motion RLE : Active Ambulation Patient Effort : Good SILVINA DIGGS - 10/25/2014 22:23 CDT ADLs II Hygiene Assistance Grid Bed Bath : Independent Oral Care : Independent Upper Body Dressing(Clothing) : Independent Lower Body Dressing(Clothing) : Independent SILVINA DIGGS - 10/25/2014 22:23 CDT Bowel Movement Last Date : 10/25/2014 CDT Standard Safety : Bed in low position, Call device within reach, ID band check, Non-Slip footwear, Rounds every 1 hour, Upper/Half-length side-rails up, Wheels locked SILVINA DIGGS - 10/25/2014 22:23 CDT Source: [employer] Document Id: [id number] CDT!18 Larry Adler O.T. - 10/25/2014 3:56 PM CDT Activity Participation Activity Participation Entered On: 10/25/2014 15:57 CDT Performed On: 10/25/2014 15:56 CDT by LARRY CORTEZ Activity Participation Recreational Activity - Restorative : Reading, Table Games, Visitors Activities offered by - Recreational : Other: visitors Patient Participation - Recreational : Yes Treatment Response - Recreational : Expected Additional Comments : Pt had several visitors today; in TCU lounge playing cards with a group. LARRY CORTEZ - 10/25/2014 15:56 CDT [facility] Document Id: [id number] CDT!7 Miscellaneous - Larry Cortez, O.T. - 10/25/2014 3:48 PM CDT Activities Assessment Activities Assessment Entered On: 10/25/2014 15:56 CDT Performed On: 10/25/2014 15:48 CDT by LARRY CORTEZ Patient/Resident Information Maritial Status : Yazidism Preference : Worship: Mormon Information Provided By : Patient, Chart, Observation LARRY CORTEZ - 10/25/2014 15:48 CDT Physical Function Orientation : Oriented x 3 Mobility : Independent Modes of Expression : Speech Languages : Cameroonian Vision : Glasses LARRY CORTEZ - 10/25/2014 15:48 CDT Sense of Involvement Sense of Involvement : At ease doing self-initiated activities, At ease interacting with others, Daily contact with family/close friends, Establishes own goals, Involved in group activities LARRY CORTEZ - 10/25/2014 15:48 CDT Activity Pursuit Patterns Time Awake : Morning, Afternoon, Evening Preferred Activity Setting : Day/activity room, Inside building but out of room, Outside facility LARRY CORTEZ - 10/25/2014 15:48 CDT Interest Inventory Interest Inventory - Grid Baking/Cooking : Yes Cards/Games : Yes Current Events/News : Yes Gardening : Yes Outdoor Activities : Yes Outings : Yes Reading : Yes TV Programs : Yes Walking/Alexis Outdoors : Yes Visitors : Yes FOSTERSUZYLARRY Hanna M - 10/25/2014 15:48 CDT Additional Assessment Information Activities Assessment Additional Info : Pt rec's IV antibiotics every 8 hours s/p urosepsis. She is ambulatory w/out AD, alert and oriented. Recently , has a good support network. LARRY CORTEZ - 10/25/2014 15:48 CDT Care Plan Care Plan Strengths : Pt indep in ambulation and all ADL's; very social with frequent and prolonged visitors. Req's hospitaliztion for IV antibiotics. Recreation Therapy Goals : Pt will participate in 1 daily activity outside of her room. LARRY CORTEZ - 10/25/2014 15:48 CDT Source: [employer] Document Id: [id number] CDT!33 Miscellaneous - Conversion, Historical Provider Ser - 10/25/2014 2:19 PM CDT Adult Ongoing Assessment Adult Ongoing Assessment Entered On: 10/25/2014 14:27 CDT Performed On: 10/25/2014 14:19 CDT by FERNANDO HAQUE Respiratory Respiratory Patient Stated Symptoms : None Respirations : Unlabored Respiratory Pattern : Regular All Lobes Breath Sounds : Clear FERNANDO HAQUE - 10/25/2014 14:19 CDT Cardiovascular CV Patient Stated Symptoms : None Heart Rhythm : Regular Antiembolism Device Yes/No : No Nail Bed Color : [place] Capillary Refill : Less than 2 seconds Edema Assessment : No FERNANDO HAQUE - 10/25/2014 14:19 CDT Dorsalis Pedis Pulse, Left : 2+ Normal Dorsalis Pedis Pulse, Right : 2+ Normal FERNANDO HAQUE - 10/25/2014 14:19 CDT Skin Color : Normal for ethnicity Skin Description : Dry Skin Temperature : Warm FERNANDO HAQUE - 10/25/2014 14:19 CDT Neurological Neuro Patient Stated Symptoms : None Orientation : Oriented x 3 Level of Consciousness : Alert Gait : Steady FERNANDO HAQUE - 10/25/2014 14:19 CDT Marine Coma Eye Opening Response [place] : Spontaneously Best Verbal Response [place] : Oriented Best Motor Response Marine : Obeys simple commands Marine Coma Score : 15 FERNANDO HAQUE 10/25/2014 14:19 CDT Psycho/Emotional Affect/Behavior : Calm, Cooperative, Appropriate Pain Symptoms : No FERNANDO HAQUE 10/25/2014 14:19 CDT Gastrointestinal GI Patient Stated Symptoms : None Abdomen Description : Symmetric Abdomen Palpation : Soft Bowel Movement Last Date : 10/25/2014 CDT Bowel Sounds All Quadrants : Present Stool Description : Soft (Comment: Patient reports having three bowel movements so far today. States they are firming up compared to the more loose stools she was having yesterday. [FERNANDO HAQUE 10/25/2014 14:34 CDT] ) FERNANDO HAQUE 10/25/2014 14:19 CDT Nutrition Home Diet : Regular Appetite : Good Eating Difficulties : None Feeding Ability : Complete independence FERNANDO HAQUE 10/25/2014 14:19 CDT Genitourinary Patient Stated Symptoms : None FERNANDO HAQUE 10/25/2014 14:19 CDT Shawn Sensory Perception Shawn : No impairment Moisture Shawn : Rarely moist Activity Shawn : Walks frequently Mobility Shawn : No limitations Nutrition Shawn : Excellent Friction and Shear Shawn : Potential problem Shawn Score : 22 FERNANDO HAQUE 10/25/2014 14:19 CDT Musculoskeletal Musculoskeletal Patient Stated Symptoms : None FERNANDO HAQUE 10/25/2014 14:19 CDT Peripheral IV Peripheral IV Assess/Intervention Grid Peripheral IV #1 Peripheral IV #2 IV Activity : Start, Assessment Number of Attempts : 1 Date of Insertion : 10/24/2014 CDT IV Site : Hand Forearm Laterality : Left Catheter Size : 20 20 Catheter Type : Butterfly Other: Nexivia Site Condition : No complications Drainage Description : None FERNANDO HAQUE 10/25/2014 14:19 CDT FERNANDO HAQUE 10/25/2014 14:19 CDT Hendrich II Fall Risk Confusion/Disorientation Hendrich [...] Fall Risk Score Hendrich II : 1 FERNANDO HAQUE - 10/25/2014 14:19 CDT Safe Patient Handling Safe Pt Handling Independent : Yes - No equipment needed Safe Pt Handling Equipment Rec : No Equipment Needed Repositioning Device Recommended : No FERNANDO HAQUE - 10/25/2014 14:19 CDT Education General Patient Education Powergrid Topics : Medication dosage, route, scheduling Individuals Taught : Patient, Daughter, Friend Barriers to Learning : None evident Teaching Method : Demonstration, Explanation Teaching Evaluation : Verbalizes understanding FERNANDO HAQUE - 10/25/2014 14:19 CDT Source: [employer] Document Id: [id number] CDT!94 Krystyna Warner - 10/25/2014 12:46 PM CDT Team Meeting Notes Team Meeting Notes Entered On: 10/25/2014 12:46 CDT Performed On: 10/25/2014 12:46 CDT by KRYSTYNA GROSS Team Notes Team Meeting Grid Discipline : First Beater, Mold Checker, Warranty Administrator, Nurse, Occupational Therapist, Patient, Physical Therapist, Refrigeration Mechanic, Speech Therapist, Other: Nurse Local Area Network Systems Adminstrator Topics : Medication, Plan of care Goal of the Day : Pt is on Zosyn Q8 and switched to TCU on 10/24/14. KRYSTYNA GROSS - 10/25/2014 12:46 CDT Source: [employer] Document Id: [id number] CDT!7 Jarod - Pretty Claire, RXenaiNXenia - 10/25/2014 10:00 AM CDT Adult Activities of Daily Living Adult Activities of Daily Living Entered On: 10/25/2014 13:26 CDT Performed On: 10/25/2014 10:00 CDT by PRETTY CLAIRE ADLs I Patient Position : Sitting in chair Activity Status ADL : Ambulating in room, Up ad anu, Up with assistance Activity Assistance : Stand-by assistance Assistive Device : None Repositioning/Pressure Reducing Devices : Pillow Range of Motion LUE : Active Range of Motion RUE : Active Range of Motion LLE : Active Range of Motion RLE : Active Ambulation Patient Effort : Good PRETTY CLAIRE - 10/25/2014 13:26 CDT Source: [employer] Document Id: [id number] CDT!12 Jarod - Pretty Claire R.N. - 10/25/2014 10:00 AM CDT Adult Activities of Daily Living Adult Activities of Daily Living Entered On: 10/25/2014 13:27 CDT Performed On: 10/25/2014 10:00 CDT by PRETTY CLAIRE ADLs II Hygiene Assistance Grid Bed Bath : Minimum assistance Upper Body Dressing(Clothing) : Independent Lower Body Dressing(Clothing) : Independent PRETTY CLAIRE - 10/25/2014 13:26 CDT Bowel Movement Last Date : 10/25/2014 CDT Standard Safety : Bed in low position, Call device within reach, ID band check, Non-Slip footwear, Rounds every 1 hour, Upper/Half-length side-rails up, Wheels locked PRETTY CLAIRE - 10/25/2014 13:26 CDT Source: [employer] Document Id: [id number] CDT!8 Lindycellmira - Charissa Erwin R.N. - 10/25/2014 9:50 AM CDT Adult Ongoing Assessment Adult Ongoing Assessment Entered On: 10/25/2014 11:58 CDT Performed On: 10/25/2014 9:50 CDT by CHARISSA ERWIN RN Respiratory Respiratory Patient Stated Symptoms : None Respirations : Unlabored Respiratory Pattern : Regular All Lobes Breath Sounds : Clear Cough : None Sputum Amount : None Suction : None Airway : Patent CAHRISSA ERWIN 10/25/2014 11:50 CDT Cardiovascular CV Patient Stated Symptoms : None Heart Rhythm : Regular Heart Sounds ICU : S1S2 Antiembolism Device Yes/No : No Nail Bed Color : [place] Capillary Refill : Less than 2 seconds Edema Assessment : No Pacer : No CHARISSA ERWIN 10/25/2014 11:50 CDT Radial Pulse, Left : 2+ Normal Radial Pulse, Right : 2+ Normal Dorsalis Pedis Pulse, Left : 2+ Normal Dorsalis Pedis Pulse, Right : 2+ Normal CHARISSA ERWIN 10/25/2014 11:50 CDT Skin Color : [place] Skin Description : Normal Skin Temperature : Warm Activity Tolerance : Without distress CHARISSA ERWIN 10/25/2014 11:50 CDT Neurological Neuro Patient Stated Symptoms : None Orientation : Oriented x 3 Level of Consciousness : Alert Gait : Steady Swallowing Difficulty/Aspiration Risk : None CHARISSA ERWIN 10/25/2014 11:50 CDT [place] Coma Eye Opening Response [place] : Spontaneously Best Verbal Response [place] : Oriented Best Motor Response [place] : Obeys simple commands Marine Coma Score : 15 CHARISSA ERWIN 10/25/2014 11:50 CDT Oral Exam - Swing Bed Teeth and supporting structure for : Ability to chew without pain or sensitivity to hot/cold Oral Cavity Tissue for : No abnormality Gums for : No abnormality Partials or Dentures for : No abnormality CHARISSA ERWIN 10/25/2014 11:50 CDT Oral Assessment Lips : Smooth, pink, moist, intact Gingiva : [place], smooth, moist, intact Tongue : Smooth, pink, moist, intact Teeth : Clean, no debris Saliva : Thin, watery, plentiful CHARISSA ERWIN DEONNA 10/25/2014 11:50 CDT Psycho/Emotional Affect/Behavior : Calm, Cooperative, Appropriate Pain Symptoms : No RIP CHARISSA Marvin YING 10/25/2014 11:50 CDT Coping Grid Identifies effective strategies : Yes Uses effective strategies : Yes Reports increase in psychological comfort : Yes Indicates sense of control : Yes Stressors perceived within control : Yes Stable mood with appropriate affect : Yes Behaviors indicate use of coping mechanism : Yes Family supportive and involved in care : Yes Values/Beliefs incorporated appropriately : Yes CHARLES ERWINLANNY Wong 10/25/2014 11:50 CDT Safety Grid Vision, Hearing, Mobility Adequate to Meet Safety Needs : Yes CHARLES ERWINNE Marvin 10/25/2014 11:50 CDT Gastrointestinal GI Patient Stated Symptoms : None Abdomen Description : Rounded Abdomen Palpation : Soft Bowel Movement Last Date : 10/25/2014 CDT Bowel Sounds All Quadrants : Present CHARLES ERWINNE Marvin 10/25/2014 11:50 CDT Nutrition Home Diet : Regular Appetite : Good Eating Difficulties : None Feeding Ability : Complete independence CHARLES ERWINNE Marvin 10/25/2014 11:50 CDT Genitourinary Patient Stated Symptoms : None Urinary Elimination : Voiding, no difficulties RIPCHARISSA 10/25/2014 11:50 CDT Integumentary Integumentary Patient Stated Symptoms : None Skin Turgor : Elastic Skin Integrity : Intact Mucous Membrane Color : [place] Mucous Membrane Description : Moist CHARISSA ERWIN 10/25/2014 11:50 CDT Skin Abnormality/Location Grid Location : Abdomen Hand Lower arm Laterality : Left, Right Left, Right Right Abnormality : Bruising Bruising Bruising RIPCHARISSA 10/25/2014 11:50 CDT CHARISSA REWIN 10/25/2014 11:50 CDT CHARISSA ERWIN AZEEM 10/25/2014 11:50 CDT Skin Color : [place] Skin Description : Normal Skin Temperature : Warm RIP CHARISSA E 10/25/2014 11:50 CDT Shawn Sensory Perception Shawn : No impairment Moisture Shawn : Rarely moist Activity Shawn : Walks frequently Mobility Shawn : No limitations Nutrition Shawn : Adequate RIPCHARISSA 10/25/2014 11:50 CDT Musculoskeletal Musculoskeletal Patient Stated Symptoms : None Activity Tolerance : Without distress RIPCHARISSA 10/25/2014 11:50 CDT Peripheral IV Peripheral IV Assess/Intervention Grid Peripheral IV #1 Peripheral IV #2 IV Activity : Assessment Assessment Number of Attempts : 1 Date of Insertion : 10/24/2014 CDT IV Site : Hand Forearm Laterality : Left Catheter Size : 20 20 Catheter Type : Butterfly Other: Nexivia Site Condition : Edema < 1 inch, Erythema Drainage Description : None Infiltration Score : 1 Phlebitis Score : 1 Dressing/ Activity : Dry, Intact, Transparent Flow/ Patency : No complications CHARISSA ERWIN RN - 10/25/2014 11:50 CDT CHARISSA ERWIN RN - 10/25/2014 11:50 CDT Hendrich II Fall Risk Confusion/Disorientation Hendrich [...] Fall Risk Score Hendrich II : 0 CHARISSA ERWIN RN - 10/25/2014 11:50 CDT Safe Patient Handling Safe Pt Handling Independent : Yes - No equipment needed Safe Pt Handling Equipment Rec : No Equipment Needed Repositioning Device Recommended : No CHARISSA ERWIN RN - 10/25/2014 11:50 CDT Education General Patient Education Powergrid Topics : Activity limitations/expectations, Medication dosage, route, scheduling, Plan of care, Safety, fall, Other: IV site care Individuals Taught : Patient Barriers to Learning : None evident Teaching Method : Explanation Teaching Evaluation : Verbalizes understanding CHARISSA ERWIN RN - 10/25/2014 11:50 CDT Source: [employer] Document Id: [id number] CDT!153 Miscellaneous - Maria Napier RAbimbola - 10/24/2014 11:20 PM CDT Adult Ongoing Assessment Adult Ongoing Assessment Entered On: 10/25/2014 1:47 CDT Performed On: 10/24/2014 23:20 CDT by MARIA DAVID RN Respiratory Respiratory Patient Stated Symptoms : None Respirations : Unlabored Respiratory Pattern : Regular All Lobes Breath Sounds : Clear Cough and Deep Breathe : Not done Cough : None Sputum Amount : None Suction : None Airway : Patent MARIA DAVID RN - 10/25/2014 1:11 CDT Cardiovascular CV Patient Stated Symptoms : None Heart Rhythm : Regular Heart Sounds ICU : S1S2 Antiembolism Device Yes/No : No Nail Bed Color : [place] Edema Assessment : No MARIA DAVID RN 10/25/2014 1:11 CDT Radial Pulse, Left : 2+ Normal Radial Pulse, Right : 2+ Normal Dorsalis Pedis Pulse, Left : 2+ Normal Dorsalis Pedis Pulse, Right : 2+ Normal JOANN MARIA Marvin YING 10/25/2014 1:11 CDT Skin Color : Normal for ethnicity, [place] Skin Description : Fragile, Moist, Normal Skin Temperature : Warm Activity Tolerance : Without distress MARIA DAVID RN 10/25/2014 1:11 CDT Neurological Neuro Patient Stated Symptoms : None Orientation : Oriented x 3, Appropriate for age Level of Consciousness : Alert Gait : Steady Swallowing Difficulty/Aspiration Risk : None MARIA DAVID RN 10/25/2014 1:11 CDT Marine Coma Eye Opening Response [place] : Spontaneously Best Verbal Response [place] : Oriented Best Motor Response [place] : Obeys simple commands Marine Coma Score : 15 MARIA DAVID RN 10/25/2014 1:11 CDT Oral Exam - Swing Bed Teeth and supporting structure for : No abnormality Oral Cavity Tissue for : No abnormality Gums for : No abnormality Partials or Dentures for : No abnormality MARIA DAVID RN 10/25/2014 1:11 CDT Psycho/Emotional Affect/Behavior : Calm, Cooperative, Appropriate Pain Symptoms : No MARIA DAVID RN 10/25/2014 1:11 CDT Coping Grid Identifies effective strategies : Yes Uses effective strategies : Yes Reports increase in psychological comfort : Yes Indicates sense of control : Yes Stressors perceived within control : Yes Stable mood with appropriate affect : Yes (Comment: Pt is very pleasant [MARIA DAVID RN 10/25/2014 1:11 CDT] ) Behaviors indicate use of coping mechanism : Yes Family supportive and involved in care : Yes Values/Beliefs incorporated appropriately : Yes MARIA DAVID RN 10/25/2014 1:11 CDT Safety Grid Vision, Hearing, Mobility Adequate to Meet Safety Needs : Yes (Comment: Pt is IND to SBA [MARIA DAVID RN 10/25/2014 1:11 CDT] ) MARIA DAVID RN 10/25/2014 1:11 CDT Gastrointestinal GI Patient Stated Symptoms : None Abdomen Description : Rounded, Symmetric Abdomen Palpation : Non-Tender, Soft Bowel Movement Last Date : 10/24/2014 CDT Bowel Sounds All Quadrants : Present Passing Flatus : Yes MARIA DAVID RN - 10/25/2014 1:11 CDT Nutrition Appetite : Good Eating Difficulties : None Feeding Ability : Complete independence MARIA DAVID RN - 10/25/2014 1:11 CDT Genitourinary Patient Stated Symptoms : None Urinary Elimination : Voiding, no difficulties MARIA DAVID RN 10/25/2014 1:11 CDT Integumentary Integumentary Patient Stated Symptoms : Bruising Skin Turgor : Elastic Skin Integrity : Intact Mucous Membrane Color : [place] Mucous Membrane Description : Moist MARIA DAVID RN - 10/25/2014 1:11 CDT Skin Abnormality/Location Grid Location : Abdomen Hand Lower arm Laterality : Left, Right Left, Right Right Abnormality : Bruising Bruising Bruising MARIA DAVID RN - 10/25/2014 1:11 CDT MARIA DAVID RN 10/25/2014 1:11 CDT MARIA DAVID RN 10/25/2014 1:11 CDT Skin Color : Normal for ethnicity, [place] Skin Description : Fragile, Moist, Normal Skin Temperature : Warm MARIA DAVID RN 10/25/2014 1:11 CDT Shawn Sensory Perception Shawn : No impairment Moisture Shawn : Rarely moist Activity Shawn : Walks frequently Mobility Shawn : No limitations Nutrition Shawn : Adequate Friction and Shear Shawn : No apparent problem Shawn Score : 22 MARIA DAVID RN - 10/25/2014 1:11 CDT Musculoskeletal Musculoskeletal Patient Stated Symptoms : None Activity Tolerance : Without distress MARIA DAVID RN 10/25/2014 1:11 CDT Musculoskeletal Strength Grid Left Upper Extremity Right Upper Extremity Left Lower Extremity Right Lower Extremity Strength : Strong to gravity and resistance Strong to gravity and resistance Dorsiflexion : Strong Strong Plantar/Palmar Flexion : Strong Strong Sensation : Normal, Intact Normal, Intact Normal, Intact Normal, Intact MARIA DAVID RN 10/25/2014 1:11 CDT MARIA DAVID RN 10/25/2014 1:11 CDT MARIA DAVID RN 10/25/2014 1:11 CDT MARIA DAVID RN - 10/25/2014 1:11 CDT Musculoskeletal Note : Tatiana sign negative MARIA DAVID RN - 10/25/2014 1:11 CDT Peripheral IV Peripheral IV Assess/Intervention Grid Peripheral IV #1 Peripheral IV #2 IV Activity : Assessment Assessment Number of Attempts : 1 Date of Insertion : 10/24/2014 CDT IV Site : Hand Forearm Laterality : Left Catheter Size : 20 20 Catheter Type : Butterfly Other: Nexivia Site Condition : No complications, Other: Bruised Drainage Description : None Dressing/ Activity : Dry, Intact, Transparent Flow/ Patency : No complications MARIA DAVID RN - 10/25/2014 1:11 CDT MARIA DAVID RN - 10/25/2014 1:11 CDT Hendrich II Fall Risk Confusion/Disorientation [...] Fall Risk Score Hendrich II : 0 MARIA DAVID RN - 10/25/2014 1:11 CDT Safe Patient Handling Safe Pt Handling Independent : Yes - No equipment needed Safe Pt Handling Equipment Rec : No Equipment Needed MARIA DAVID RN - 10/25/2014 1:11 CDT Education General Patient Education Powergrid Topics : Plan of care, Safety, fall Individuals Taught : Patient Barriers to Learning : None evident Teaching Method : Explanation Teaching Evaluation : Able to teach back, Verbalizes understanding MARIA DAVID RN - 10/25/2014 1:11 CDT [facility] Document Id: [id number] CDT!161 Miscellaneous - Silvina Diggs - 10/24/2014 9:24 PM CDT Adult Activities of Daily Living Adult Activities of Daily Living Entered On: 10/24/2014 21:33 CDT Performed On: 10/24/2014 21:24 CDT by SILVINA DIGGS ADLs I Patient Position : Elevate head of bed 30 degrees, Supine Activity Status ADL : Ambulating in [place], Ambulating in room, Bathroom privileges, Up with assistance Activity Assistance : Stand-by assistance Range of Motion LUE : Active Range of Motion RUE : Active Range of Motion LLE : Active Range of Motion RLE : Active Ambulation Patient Effort : Good SILVINA DIGGS - 10/24/2014 21:24 CDT ADLs II Standard Safety : Bed in low position, Call device within reach, ID band check, Non-Slip footwear, Rounds every 1 hour, Upper/Half-length side-rails up, Wheels locked SILVINA DIGGS - 10/24/2014 21:24 CDT Source: [employer] Document Id: [id number] CDT!12 Miscellaneous - Conversion, Historical Provider Ser - 10/24/2014 4:45 PM CDT Adult Ongoing Assessment Adult Ongoing Assessment Entered On: 10/24/2014 17:42 CDT Performed On: 10/24/2014 16:45 CDT by WIN RAMIREZ RN Respiratory Respiratory Patient Stated Symptoms : None Respirations : Unlabored Respiratory Pattern : Regular Airway : Patent WIN RAMIREZ RN - 10/24/2014 17:36 CDT Cardiovascular CV Patient Stated Symptoms : None Heart Rhythm : Irregular Heart Sounds ICU : S1S2 Antiembolism Device Yes/No : No Nail Bed Color : [place] Capillary Refill : Less than 2 seconds Edema Assessment : No WIN RAMIREZ RN - 10/24/2014 17:36 CDT Radial Pulse, Left : 2+ Normal Radial Pulse, Right : 2+ Normal WIN RAMIREZ RN - 10/24/2014 17:36 CDT Skin Color : Normal for ethnicity Skin Description : Dry Skin Temperature : Warm Activity Tolerance : Without distress WIN RAMIREZ RN - 10/24/2014 17:36 CDT Neurological Neuro Patient Stated Symptoms : None Orientation : Oriented x 3 Level of Consciousness : Alert Gait : Steady Swallowing Difficulty/Aspiration Risk : None WIN RAMIREZ - 10/24/2014 17:36 CDT Marine Coma Eye Opening Response Marine : Spontaneously Best Verbal Response [place] : Oriented Best Motor Response Marine : Obeys simple commands [place] Coma Score : 15 WIN RAMIREZ RN 10/24/2014 17:36 CDT Psycho/Emotional Affect/Behavior : Calm, Cooperative Pain Symptoms : No Feels Rested : Yes WIN RAMIREZ 10/24/2014 17:36 CDT Coping Grid Family supportive and involved in care : Yes WIN RAMIREZ 10/24/2014 17:36 CDT Safety Grid Vision, Hearing, Mobility Adequate to Meet Safety Needs : Yes WIN RAMIREZ 10/24/2014 17:36 CDT Gastrointestinal GI Patient Stated Symptoms : None Abdomen Description : Asymmetric Abdomen Palpation : Soft WIN RAMIREZ 10/24/2014 17:36 CDT Nutrition Home Diet : Regular Eating Difficulties : None Feeding Ability : Complete independence WIN RAMIREZ 10/24/2014 17:36 CDT Genitourinary Urinary Elimination : Voiding, no difficulties WIN RAMIREZ 10/24/2014 17:36 CDT Integumentary Integumentary Patient Stated Symptoms : Bruising Skin Turgor : Elastic Skin Integrity : Intact Mucous Membrane Color : [place] Mucous Membrane Description : Moist WIN RAMIREZ 10/24/2014 17:36 CDT Skin Abnormality/Location Grid Location : Abdomen Hand Lower arm Laterality : Left, Right Left, Right Right Abnormality : Bruising Bruising Bruising WIN RAMIREZ 10/24/2014 17:36 CDT WIN RAMIREZ 10/24/2014 17:36 CDT WIN RAMIREZ 10/24/2014 17:36 CDT Skin Color : Normal for ethnicity Skin Description : Dry Skin Temperature : Warm WIN RAMIREZ 10/24/2014 17:36 CDT Shawn Sensory Perception Shawn : No impairment Moisture Shawn : Rarely moist Activity Shawn : Walks frequently Mobility Shawn : No limitations Nutrition Shawn : Adequate WIN RAMIREZ - 10/24/2014 17:36 CDT Musculoskeletal Musculoskeletal Patient Stated Symptoms : None WIN RAMIREZ RN - 10/24/2014 17:36 CDT Peripheral IV Peripheral IV Assess/Intervention Grid Peripheral IV #1 Peripheral IV #2 IV Activity : Assessment Start Removal : Catheter intact, Hemostasis within expected timeframe Number of Attempts : 1 Date of Insertion : 10/24/2014 CDT IV Site : Hand Forearm Laterality : Left Catheter Size : 20 20 Catheter Type : Butterfly Other: Nexalejandraia WIN RAMIREZ RN - 10/24/2014 17:36 CDT WIN RAMIREZ RN - 10/24/2014 17:36 CDT Hendrich II Fall Risk Confusion/Disorientation Hendrich : No Depression Fall Risk Hendrich : No Altered Elimination Fall Risk Hendrich : No Dizziness/Vertigo Fall Risk Hendrich : No Gender, Male Fall Risk Hendrich : No Prescribed Antiepileptics Hendrich : No Rising From Chair Fall Risk Hendrich : Able to rise in a single movement, no loss of balance with steps WIN RAMIREZ RN - 10/24/2014 17:36 CDT Safe Patient Handling Safe Pt Handling Independent : Yes - No equipment needed Safe Pt Handling Equipment Rec : No Equipment Needed WIN RAMIREZ RN - 10/24/2014 17:36 CDT Education General Patient Education Power[employer] Topics : Plan of care Individuals Taught : Patient Barriers to Learning : None evident Teaching Method : Explanation Teaching Evaluation : Verbalizes understanding WIN RAMIREZ RN - 10/24/2014 17:36 CDT Source: [facility] POWERCHART Document Id: [id number] CDT!115 Miscellaneous - Conversion, Historical Provider Ser - 10/24/2014 3:09 PM CDT Hospital Patient Education The following Patient Education Materials have been given to the patient: Patient Education Materials: Ambulatory DIET, Renal LabTest InfoSheets Creatinine (Blood) Ambulatory Diet For Chronic Kidney Disease Following a special diet when you have kidney disease can help you stay as healthy as possible. A special diet plan should be made just for you by your doctor or a dietitian. Here are some good eating rules: ?? PROTEIN: High-protein diets put a strain on the kidneys. Eating less protein may slow the progression of chronic kidney disease. Foods high in protein include meat, fish, eggs, cheese and other dairy products. A registered dietitian can help you plan a diet that contains an appropriate amount of pro tein for you. ?? SALT: Excess salt in your diet causes you to retain water. Use no more than one half teaspoon of salt (or 1,500 mg of sodium) a day to avoid fluid retention and help control high blood pressure. Learn to read food labels to know how much sodium is in one serving. Foods high in salt include smoked meats and fish, processed foods, salted chips and snacks, and pickled foods. ?? FLUIDS: You will need to limit the water and fluids you drink, if you have advanced kidney disease. Otherwise, excess water builds up in the body. The exact amount of fluid that you can drink depends on your kidney function. Ask your doctor how much water you can safely drink each day. ?? POTASSIUM: In advanced kidney disease, your potassium level can go dangerously high. This affectsthe heart and can cause arrhythmia (irregular heartbeat). Limit your intake of potassium-rich foods such as artichokes, beans (white, red, and sykes), bananas, potatoes, spinach, cantaloupe, honeydew melon, cod, flounder, halibut, salmon, and scallops. ?? CALCIUM: Take calcium supplements to help keep your bones healthy. Ask your doctor how much calcium you should take each day. ?? PHOSPHORUS: In advanced kidney disease, your phosphorus level can go dangerously high. This affects many systems in the body and can become very dangerous. Limit your intake of phosphorus-rich foodssuch as eggs, beans, peas, nuts, cocoa, beer, cola drinks, and dairy products. ?? [id number] [facility], [address] [place] [address], [place] [address]. All rights reserved. This information is not intended as a substitute for professional medical care. Always follow your healthcare professional's instructions. LabTest InfoSheets Creatinine (Blood) Does this test have other names? Serum creatinine, blood creatinine What is this test? This is a blood test that measures how well your kidneys work. Clearing and filtering waste productsout of your blood are important kidney functions. Creatinine is a normal waste product that builds up in your blood from using your muscles. Your bodyproduces creatinine at a constant rate all the time, and healthy kidneys remove almost all of this creatinine. By comparing the amount of creatinine in your blood with a standard normal amount, your doctor can get a good idea of how well your kidneys are working. Why do I need this test? You may have a creatinine test as part of your regular medical checkup. It's often included in routine blood tests to check your overall health. You may need this test if you have signs or symptoms of kidney disease. Your risk for kidney diseaseis higher if you are an older adult, have high blood pressure, have a family history of kidney disease, or have diabetes. You may also be at increased risk if you are -Somali, , ,, or . Signs and symptoms of kidney disease include: ?? Frequent tiredness ?? Swelling in your feet or ankles ?? Poor appetite ?? Puffiness around your eyes ?? Dry, itchy skin ?? Muscle cramps ?? Frequent urination ?? Painful urination ?? Blood in your urine If you are being treated for kidney disease, you may also need this test to see how well your treatment is working. What other tests might I have along with this test? Your doctors may use your blood creatinine level, along with your age, race, sex, and other factors,to calculate your glomerular filtration rate (GFR). The GFR is considered the best measure of kidneyfunction. Blood urea nitrogen (BUN) is another blood test that's often done with a creatinine test. BUN is another waste product that doctors measure to see how your kidneys are functioning. You may also have a test that measures the amount of creatinine in your urine. What do my test results mean? Many things may affect your lab test results. These include the method each lab uses to do the test.Even if your test results are different from the normal value, you may not have a problem. To learn what the results mean for you, talk with your health care provider. A normal level of creatinine depends on how much muscle mass you have. A normal level for a man is higher than it is for a woman. Children have lower levels than both men and women. Creatinine is measured in milligrams per deciliter (mg/dL). Here are the normal values by age: ?? 0.9 to 1.3 mg/dL for adult males ?? 0.6 to 1.1 mg/dL for adult females ?? 0.5 to 1.0 mg/dL for children ages 3 to 18 years ?? 0.3 to 0.7 mg/dL for children under age 3 If your creatinine is high, it may mean you have: ?? Kidney disease ?? Blockage in your urinary system ?? Muscle disease ?? Congestive heart failure ?? Diabetes ?? Dehydration ?? Overactive thyroid gland If your creatinine is low, it may mean you have: ?? Muscle loss ?? Severe liver disease ?? Not enough protein in your diet How is this test done? The test requires a blood sample, which is drawn through a needle from a vein in your arm. Does this test pose any risks? Taking a blood sample with a needle carries small risks that include bleeding, infection, bruising, and a sense of lightheadedness. When the needle pricks your arm, you may feel a slight sting or pain.Afterward, the site may be sore. What might affect my test results? Some factors that could interfere with your creatinine test include: ? Eating a lot of meat recently ?? Taking large doses of vitamin C ?? Taking certain medications, especially antibiotics How do I get ready for this test? You don't need to prepare for this test. Tell your doctor if you are . Also, be sure your doctor knows about all medicines, herbs, vitamins, and supplements you are taking. This includes medicines that don't need a prescription and any illicit drugs you may use. ?? [id number] [place] [address]. All rights reserved. This information is not intended as a substitute for professional medical care. Always follow your healthcare professional's instructions. This document has images extracted. Please consider using nfon for all your patient education needs. Source: [facility] POWERCHART Document Id: [id number] Miscellaneous - Conversion, Historical Provider Ser - 10/24/2014 3:09 PM CDT Hospital Patient Education The following Patient Education Materials have been given to the patient: Patient Education Materials: Ambulatory DIET, Renal LabTest InfoSheets Creatinine (Blood) Ambulatory Diet For Chronic Kidney Disease Following a special diet when you have kidney disease can help you stay as healthy as possible. A special diet plan should be made just for you by your doctor or a dietitian. Here are some good eating rules: ?? PROTEIN: High-protein diets put a strain on the kidneys. Eating less protein may slow the progression of chronic kidney disease. Foods high in protein include meat, fish, eggs, cheese and other dairy products. A registered dietitian can help you plan a diet that contains an appropriate amount of pro tein for you. ?? SALT: Excess salt in your diet causes you to retain water. Use no more than one half teaspoon of salt (or 1,500 mg of sodium) a day to avoid fluid retention and help control high blood pressure. Learn to read food labels to know how much sodium is in one serving. Foods high in salt include smoked meats and fish, processed foods, salted chips and snacks, and pickled foods. ?? FLUIDS: You will need to limit the water and fluids you drink, if you have advanced kidney disease. Otherwise, excess water builds up in the body. The exact amount of fluid that you can drink depends on your kidney function. Ask your doctor how much water you can safely drink each day. ?? POTASSIUM: In advanced kidney disease, your potassium level can go dangerously high. This affectsthe heart and can cause arrhythmia (irregular heartbeat). Limit your intake of potassium-rich foods such as artichokes, beans (white, red, and sykes), bananas, potatoes, spinach, cantaloupe, honeydew melon, cod, flounder, halibut, salmon, and scallops. ?? CALCIUM: Take calcium supplements to help keep your bones healthy. Ask your doctor how much calcium you should take each day. ?? PHOSPHORUS: In advanced kidney disease, your phosphorus level can go dangerously high. This affects many systems in the body and can become very dangerous. Limit your intake of phosphorus-rich foodssuch as eggs, beans, peas, nuts, cocoa, beer, cola drinks, and dairy products. ?? [id number] [employer], [address] [place] [address], [place] [address]. All rights reserved. This information is not intended as a substitute for professional medical care. Always follow your healthcare professional's instructions. LabTest InfoSheets Creatinine (Blood) Does this test have other names? Serum creatinine, blood creatinine What is this test? This is a blood test that measures how well your kidneys work. Clearing and filtering waste productsout of your blood are important kidney functions. Creatinine is a normal waste product that builds up in your blood from using your muscles. Your bodyproduces creatinine at a constant rate all the time, and healthy kidneys remove almost all of this creatinine. By comparing the amount of creatinine in your blood with a standard normal amount, your doctor can get a good idea of how well your kidneys are working. Why do I need this test? You may have a creatinine test as part of your regular medical checkup. It's often included in routine blood tests to check your overall health. You may need this test if you have signs or symptoms of kidney disease. Your risk for kidney diseaseis higher if you are an older adult, have high blood pressure, have a family history of kidney disease, or have diabetes. You may also be at increased risk if you are -Somali, , ,, or . Signs and symptoms of kidney disease include: ?? Frequent tiredness ?? Swelling in your feet or ankles ?? Poor appetite ?? Puffiness around your eyes ?? Dry, itchy skin ?? Muscle cramps ?? Frequent urination ?? Painful urination ?? Blood in your urine If you are being treated for kidney disease, you may also need this test to see how well your treatment is working. What other tests might I have along with this test? Your doctors may use your blood creatinine level, along with your age, race, sex, and other factors,to calculate your glomerular filtration rate (GFR). The GFR is considered the best measure of kidneyfunction. Blood urea nitrogen (BUN) is another blood test that's often done with a creatinine test. BUN is another waste product that doctors measure to see how your kidneys are functioning. You may also have a test that measures the amount of creatinine in your urine. What do my test results mean? Many things may affect your lab test results. These include the method each lab uses to do the test.Even if your test results are different from the normal value, you may not have a problem. To learn what the results mean for you, talk with your health care provider. A normal level of creatinine depends on how much muscle mass you have. A normal level for a man is higher than it is for a woman. Children have lower levels than both men and women. Creatinine is measured in milligrams per deciliter (mg/dL). Here are the normal values by age: ?? 0.9 to 1.3 mg/dL for adult males ?? 0.6 to 1.1 mg/dL for adult females ?? 0.5 to 1.0 mg/dL for children ages 3 to 18 years ?? 0.3 to 0.7 mg/dL for children under age 3 If your creatinine is high, it may mean you have: ?? Kidney disease ?? Blockage in your urinary system ?? Muscle disease ?? Congestive heart failure ?? Diabetes ?? Dehydration ?? Overactive thyroid gland If your creatinine is low, it may mean you have: ?? Muscle loss ?? Severe liver disease ?? Not enough protein in your diet How is this test done? The test requires a blood sample, which is drawn through a needle from a vein in your arm. Does this test pose any risks? Taking a blood sample with a needle carries small risks that include bleeding, infection, bruising, and a sense of lightheadedness. When the needle pricks your arm, you may feel a slight sting or pain.Afterward, the site may be sore. What might affect my test results? Some factors that could interfere with your creatinine test include: ? Eating a lot of meat recently ?? Taking large doses of vitamin C ?? Taking certain medications, especially antibiotics How do I get ready for this test? You don't need to prepare for this test. Tell your doctor if you are . Also, be sure your doctor knows about all medicines, herbs, vitamins, and supplements you are taking. This includes medicines that don't need a prescription and any illicit drugs you may use. ?? [phone] [facility], [address] [place] [address], [place] [address]. All rights reserved. This information is not intended as a substitute for professional medical care. Always follow your healthcare professional's instructions. This document has images extracted. Please consider using nfon for all your patient education needs. Source: [facility] POWERCHART Document Id: [id number] Miscellaneous - Conversion, Historical Provider Ser - 10/24/2014 3:07 PM CDT Hospital Patient Education The following Patient Education Materials have been given to the patient: Patient Education Materials: Ambulatory DIET, Renal LabTest InfoSheets Creatinine (Blood) Ambulatory Diet For Chronic Kidney Disease Following a special diet when you have kidney disease can help you stay as healthy as possible. A special diet plan should be made just for you by your doctor or a dietitian. Here are some good eating rules: ?? PROTEIN: High-protein diets put a strain on the kidneys. Eating less protein may slow the progression of chronic kidney disease. Foods high in protein include meat, fish, eggs, cheese and other dairy products. A registered dietitian can help you plan a diet that contains an appropriate amount of pro tein for you. ?? SALT: Excess salt in your diet causes you to retain water. Use no more than one half teaspoon of salt (or 1,500 mg of sodium) a day to avoid fluid retention and help control high blood pressure. Learn to read food labels to know how much sodium is in one serving. Foods high in salt include smoked meats and fish, processed foods, salted chips and snacks, and pickled foods. ?? FLUIDS: You will need to limit the water and fluids you drink, if you have advanced kidney disease. Otherwise, excess water builds up in the body. The exact amount of fluid that you can drink depends on your kidney function. Ask your doctor how much water you can safely drink each day. ?? POTASSIUM: In advanced kidney disease, your potassium level can go dangerously high. This affectsthe heart and can cause arrhythmia (irregular heartbeat). Limit your intake of potassium-rich foods such as artichokes, beans (white, red, and sykes), bananas, potatoes, spinach, cantaloupe, honeydew melon, cod, flounder, halibut, salmon, and scallops. ?? CALCIUM: Take calcium supplements to help keep your bones healthy. Ask your doctor how much calcium you should take each day. ?? PHOSPHORUS: In advanced kidney disease, your phosphorus level can go dangerously high. This affects many systems in the body and can become very dangerous. Limit your intake of phosphorus-rich foodssuch as eggs, beans, peas, nuts, cocoa, beer, cola drinks, and dairy products. ?? [id number] [employer], [address] [place] [address], [place] [address]. All rights reserved. This information is not intended as a substitute for professional medical care. Always follow your healthcare professional's instructions. LabTest InfoSheets Creatinine (Blood) Does this test have other names? Serum creatinine, blood creatinine What is this test? This is a blood test that measures how well your kidneys work. Clearing and filtering waste productsout of your blood are important kidney functions. Creatinine is a normal waste product that builds up in your blood from using your muscles. Your bodyproduces creatinine at a constant rate all the time, and healthy kidneys remove almost all of this creatinine. By comparing the amount of creatinine in your blood with a standard normal amount, your doctor can get a good idea of how well your kidneys are working. Why do I need this test? You may have a creatinine test as part of your regular medical checkup. It's often included in routine blood tests to check your overall health. You may need this test if you have signs or symptoms of kidney disease. Your risk for kidney diseaseis higher if you are an older adult, have high blood pressure, have a family history of kidney disease, or have diabetes. You may also be at increased risk if you are -Somali, , ,, or . Signs and symptoms of kidney disease include: ?? Frequent tiredness ?? Swelling in your feet or ankles ?? Poor appetite ?? Puffiness around your eyes ?? Dry, itchy skin ?? Muscle cramps ?? Frequent urination ?? Painful urination ?? Blood in your urine If you are being treated for kidney disease, you may also need this test to see how well your treatment is working. What other tests might I have along with this test? Your doctors may use your blood creatinine level, along with your age, race, sex, and other factors,to calculate your glomerular filtration rate (GFR). The GFR is considered the best measure of kidneyfunction. Blood urea nitrogen (BUN) is another blood test that's often done with a creatinine test. BUN is another waste product that doctors measure to see how your kidneys are functioning. You may also have a test that measures the amount of creatinine in your urine. What do my test results mean? Many things may affect your lab test results. These include the method each lab uses to do the test.Even if your test results are different from the normal value, you may not have a problem. To learn what the results mean for you, talk with your health care provider. A normal level of creatinine depends on how much muscle mass you have. A normal level for a man is higher than it is for a woman. Children have lower levels than both men and women. Creatinine is measured in milligrams per deciliter (mg/dL). Here are the normal values by age: ?? 0.9 to 1.3 mg/dL for adult males ?? 0.6 to 1.1 mg/dL for adult females ?? 0.5 to 1.0 mg/dL for children ages 3 to 18 years ?? 0.3 to 0.7 mg/dL for children under age 3 If your creatinine is high, it may mean you have: ?? Kidney disease ?? Blockage in your urinary system ?? Muscle disease ?? Congestive heart failure ?? Diabetes ?? Dehydration ?? Overactive thyroid gland If your creatinine is low, it may mean you have: ?? Muscle loss ?? Severe liver disease ?? Not enough protein in your diet How is this test done? The test requires a blood sample, which is drawn through a needle from a vein in your arm. Does this test pose any risks? Taking a blood sample with a needle carries small risks that include bleeding, infection, bruising, and a sense of lightheadedness. When the needle pricks your arm, you may feel a slight sting or pain.Afterward, the site may be sore. What might affect my test results? Some factors that could interfere with your creatinine test include: ? Eating a lot of meat recently ?? Taking large doses of vitamin C ?? Taking certain medications, especially antibiotics How do I get ready for this test? You don't need to prepare for this test. Tell your doctor if you are . Also, be sure your doctor knows about all medicines, herbs, vitamins, and supplements you are taking. This includes medicines that don't need a prescription and any illicit drugs you may use. ?? [id number] [facility], [address] [place] [address], [place] [address]. All rights reserved. This information is not intended as a substitute for professional medical care. Always follow your healthcare professional's instructions. This document has images extracted. Please consider using nfon for all your patient education needs. Source: Touchmedia Document Id: [id number] Jarod - Yisel Bryson - 10/24/2014 1:00 PM CDT Activity Participation Activity Participation Entered On: 10/24/2014 14:03 CDT Performed On: 10/24/2014 13:00 CDT by YISEL BRYSON Activity Participation Patient Participation - Recreational : No Additional Comments : Due to timing of the activity patient was unable to participate due to nursingworking with her. YISEL BRYSON - 10/24/2014 14:00 CDT Source: [employer] Document Id: [id number] CDT!4 Jarod - Lily Morton, O.T. - 10/24/2014 11:32 AM CDT Activity Participation Activity Participation Entered On: 10/24/2014 11:32 CDT Performed On: 10/24/2014 11:32 CDT by LILY MORTON OT Activity Participation Recreational Activity - Restorative : Other: pt enjoys the Media Chaperoneaper Activities offered by - Recreational : Occupational Therapy Patient Participation - Recreational : Yes Treatment Response - Recreational : Expected LILY MORTON OT - 10/24/2014 11:32 CDT Source: [employer] Document Id: [id number] CDT!6 Jarod - Elsi Cook R.N. - 10/24/2014 11:07 AM CDT Adult Activities of Daily Living Adult Activities of Daily Living Entered On: 10/24/2014 11:08 CDT Performed On: 10/24/2014 11:07 CDT by ELSI COOK RN ADLs I Activity Status ADL : Ambulating in [place] Activity Assistance : Stand-by assistance ELSI COOK RN - 10/24/2014 11:07 CDT ADLs II Standard Safety : ID band check, Non-Slip footwear ELSI COOK RN - 10/24/2014 11:07 CDT [facility] P[facility] Document Id: [id number] CDT!6 Miscellaneous - Conversion, Historical Provider Ser - 10/24/2014 11:00 AM CDT Swing Bed Admission Assessment Swing Bed Admission Assessment Entered On: 10/24/2014 12:07 CDT Performed On: 10/24/2014 11:00 CDT by WIN RAMIREZ RN Respiratory Respiratory Patient Stated Symptoms : None Respirations : Unlabored Respiratory Pattern : Regular All Lobes Breath Sounds : Clear Airway : Patent WIN RAMIREZ RN - 10/24/2014 12:01 CDT Cardiovascular CV Patient Stated Symptoms : None Heart Rhythm : Regular Heart Sounds ICU : S1S2 Nail Bed Color : [place] Capillary Refill : Less than 2 seconds Edema Assessment : No WIN RAMIREZ RN - 10/24/2014 12:01 CDT Radial Pulse, Left : 2+ Normal Radial Pulse, Right : 2+ Normal WIN RAMIREZ RN - 10/24/2014 12:01 CDT Skin Color : Normal for ethnicity Skin Description : Dry Skin Temperature : Warm Activity Tolerance : Without distress WIN RAMIREZ RN - 10/24/2014 12:01 CDT Neurosensory Pain Symptoms : No Level of Consciousness : Alert Orientation : Oriented x 3 Affect/Behavior : Calm, Cooperative Characteristics of Speech : Appropriate for age Gait : Steady Vision : Glasses WIN RAMIREZ RN - 10/24/2014 12:01 CDT Gastrointestinal GI Symptoms : None Passing Flatus : Yes Home Diet : Regular Abdomen Palpation : Soft Abdomen Description : Asymmetric Eating Difficulties : None WIN RAMIREZ RN - 10/24/2014 12:01 CDT Bowel Sounds LUQ LUQ : Normoactive RUQ : Normoactive LLQ : Normoactive RLQ : Normoactive WIN RAMIREZ 10/24/2014 12:01 CDT Genitourinary Patient Stated Symptoms : None Urinary Elimination : Voiding, no difficulties WIN RAMIREZ 10/24/2014 12:01 CDT Integumentary Integumentary Patient Stated Symptoms : Bruising Skin Turgor : Elastic Skin Integrity : Intact Mucous Membrane Color : [place] Mucous Membrane Description : Moist WIN RAMIREZ 10/24/2014 12:01 CDT Skin Abnormality/Location Grid Location : Abdomen Hand Lower arm Laterality : Left, Right Left, Right Right Abnormality : Bruising Bruising Bruising WIN RAMIREZ 10/24/2014 12:01 CDT WIN RAMIREZ 10/24/2014 12:01 CDT WIN RAMIREZ 10/24/2014 12:01 CDT Skin Color : Normal for ethnicity Skin Description : Dry Skin Temperature : Warm WIN RAMIREZ 10/24/2014 12:01 CDT Peripheral IV Peripheral IV Assess/Intervention Grid Peripheral IV #1 IV Activity : Assessment IV Site : Hand Catheter Size : 20 Catheter Type : Butterfly WIN RAMIREZ 10/24/2014 12:01 CDT Musculoskeletal Musculoskeletal Patient Stated Symptoms : None Activity Tolerance : Without distress WIN RAMIREZ 10/24/2014 12:01 CDT Shawn Sensory Perception Shawn : No impairment Moisture Shawn : Rarely moist Activity Shawn : Walks frequently Mobility Shawn : No limitations Nutrition Shawn : Adequate WIN RAMIREZ 10/24/2014 12:01 CDT Hendrich II Fall Risk Confusion/Disorientation Hendrich [...] Fall Risk Score Hendrich II : 0 WIN RAMIREZ 10/24/2014 12:01 CDT Safe Patient Handling Safe Pt Handling Independent : Yes - No equipment needed Safe Pt Handling Equipment Rec : No Equipment Needed WIN RAMIREZ RN - 10/24/2014 12:01 CDT Condition Statement Condition Statement : IV antibiotic's Psycho-emotional : Significant stressors are precieved within control WIN RAMIREZ RN - 10/24/2014 12:01 CDT Level of Function Dressing Swing : Activity did not occur Bathing Swing : Activity did not occur Walking Swing : Independent Grooming Swing : Independent Bed Mobility Swing : Independent Toilet Use Swing : Independent Transfers Swing : Independent Eating Swing : Independent WIN RAMIREZ RN - 10/24/2014 12:01 CDT Nursing Needs Nursing Procedure Needed : Yes Special Treatments and Procedures : IV antibiotics WIN RAMIREZ RN - 10/24/2014 12:01 CDT Education General Patient Education Powergrid Topics : Plan of care Individuals Taught : Patient Barriers to Learning : None evident Teaching Method : Explanation Teaching Evaluation : Verbalizes understanding WIN RAMIREZ RN - 10/24/2014 12:01 CDT Source: [employer] Document Id: [id number] CDT!118 Miscellaneous - Conversion, Historical Provider Ser - 10/24/2014 11:00 AM CDT Basic Admission Information Basic Admission Information Entered On: 10/24/2014 12:09 CDT Performed On: 10/24/2014 11:00 CDT by WIN RAMIREZ RN Vital Signs Temperature Core : 36.7 DegC(Converted to: 98.1 DegF) Limb Alert Question : No Apical Heart Rate : 77 /min Respiratory Rate : 20 /min Systolic Blood Pressure : 121 mmHg Diastolic Blood Pressure : 64 mmHg NIBP Mean : 83 mmHg SpO2 : 99 % Oxygen Therapy : Room air Height : 168 cm(Converted to: 5 ft 6 inch(es)) WIN RAMIREZ RN - 10/24/2014 12:09 CDT Source: [employer] Document Id: [id number] CDT!12 Miscellaneous - Conversion, Historical Provider Ser - 10/24/2014 11:00 AM CDT Adult Admission History Adult Admission History Entered On: 10/24/2014 12:49 CDT Performed On: 10/24/2014 11:00 CDT by WIN RAMIREZ RN General Info Preferred Name : Karoline Admitted From : Non-Health Care Facility Point of Origin Accompanied By : Daughter Information Given By : Patient Languages : Cameroonian Is Patient Female and 13-50 no hysterectomy : No WIN RAMIREZ RN - 10/24/2014 12:44 CDT Nutrition Have you recently lost weight without trying? : No Decreased Appetite Nutrition : No Tube Feedings or Parenteral Nutrition : No MST Score : 0 Home Diet : Low sodium Appetite : Good Eating Difficulties : None Feeding Ability : Complete independence WIN RAMIREZ RN - 10/24/2014 12:44 CDT Home Environment Current Daily Living Assistance : None Home Equipment : None Sensory Deficits : Hearing deficit, left ear, Hearing deficit, right ear Mobility Assistance Prior to Admission : Independent WIN RAMIREZ RN - 10/24/2014 12:44 CDT Dependent Habits Alcohol Use : No WIN RAMIREZ RN - 10/24/2014 12:44 CDT Caffeine Use Grid Caffeine Use : Current Type : Coffee, Soft drinks, Tea Frequency : Daily Amount : 1 cup WIN RAMIREZ RN - 10/24/2014 12:44 CDT Psychosocial Adult Domestic Abuse Concerns : None Behavioral Health Screen/Safety Assmt : No Yazidism Preference : Worship: Mormon WIN RAMIREZ RN - 10/24/2014 12:44 CDT Advance Directive Advanced Directives : Yes Advance Directive Type : Living will Advance Directive Location : Other: thinks her doctor has a copy but wants dnr dni WIN RAMIREZ RN - 10/24/2014 12:44 CDT Educ Needs Learning Style Preference Adult Grid Patient : Printed materials Family : None WIN RAMIREZ RN - 10/24/2014 12:44 CDT DC Needs Anticipated Discharge Date : 10/29/2014 CDT WIN RAMIREZ RN - 10/24/2014 12:44 CDT Source: [facility] POWERCHART Document Id: [id number] CDT!44 Miscellaneous - Nabeel Patton - 10/24/2014 10:25 AM CDT Adult Activities of Daily Living Adult Activities of Daily Living Entered On: 10/24/2014 10:26 CDT Performed On: 10/24/2014 10:25 CDT by NABEEL PATTON ADLs II Hygiene Assistance Grid Shower : Minimum assistance NABEEL PATTON - 10/24/2014 10:25 CDT Standard Safety : Call device within reach, Non-Slip footwear, Rounds every 1 hour, Upper/Half-length side-rails up NABEEL PATTON - 10/24/2014 10:25 CDT [facility] Document Id: [id number] CDT!5 documented in this encounter Plan of Treatment Not on filedocumented as of this encounter Procedures Procedure Name Priority Date/Time Associated Comments Diagnosis URINALYSIS WITH Routine 10/28/2014 7:45 AM Result s for this MICROSCOPIC CDT procedure are i n the results section. AUTOMATED Routine 10/27/2014 6:22 AM Results f or this DIFFERENTIAL, B CDT procedure ar e in the results section. CBC WITH Routine 10/27/2014 6:22 AM Results f or this DIFFERENTIAL, B CDT procedure ar e in the results section. BASIC METABOLIC Routine 10/27/2014 6:22 AM Result s for this PANEL, S/P CDT procedure are i n the results section. GI PATHOGEN PANEL, Routine 10/26/2014 9:00 PM Res ults for this PCR, F CDT procedure are i n the results section. POCT HEMOCCULT - Routine 10/26/2014 7:30 PM Resul ts for this NURSING CDT procedure are i n the results section. documented in this encounter Results (ABNORMAL) Urinalysis, Complete, Includes Microscopic (10/28/2014 7:45 AM CDT) [facility] Method Time Signature HXUr Color Yellow Colorless POWERCHART Clarity Clear Clear POWERCHART Glucose Negative Negative POWERCHART MGDL HXBILIRUBIN Negative Negative POWERCHART Ketones, QL(U) Negative Negative POWERCHART MGDL Specific 1.015 POWERCHART [place], POCT, U HXBLOOD Negative Negative POWERCHART pH, POCT, Urine 6.0 <5.0 POWERCHART Protein, Ur, Negative Negative POWERCHART Dip MGDL Urobilinogen 0.2 0.2 MGDL POWERCHART HXNITRITE Negative Negative POWERCHART Leukocyte Negative Negative POWERCHART Esterase HXUR WBC. 4-10 None Seen POWERCHART HPF HXUR RBC. Occ-2 None Seen POWERCHART HPF HXUR Bacteria, Present (A) None Seen POWERCHART Squamous Occ-3 (A) None Seen POWERCHART Epithelial HPF Casts, Hyaline Occasional None Seen POWERCHART (A) LPF Specimen (Source) Anatomical Collection Method Collection Time Re ceived Time Location / / Volume Laterality Urine, First 10/28/2014 7:45 AM Voided CDT Jose Daniel Belle M.D. LAB URINE ORDERABLES Performing Organization Address City/State/ZIP Code Phon e Number POWERCHART Automated Differential (10/27/2014 6:22 AM CDT) P athologist Signature Absolute 2.38 1.70 - POWERCHART Neutrophils 7.00 109L Lymphocytes 1.93 0.90 - POWERCHART 2.90 X109L Monocytes 0.58 0.30 - POWERCHART 0.90 X109L Eosinophils 0.36 0.05 - POWERCHART 0.50 X109L Absolute 0.08 0.00 - POWERCHART Basophil 0.30 X109L Specimen Anatomical Collection Method Collection Time Receive d Time (Source) Location / / Volume Laterality Blood 10/27/2014 6:22 AM 5 6:22 CDT AM CDT Jose Daniel Belle M.D. LAB BLOOD ADD-ON Performing Organization Address City/State/ZIP Code Phon e Number POWERCHART (ABNORMAL) CBC with Differential (10/27/2014 6:22 AM CDT) Patholo gist Method Time Signature Leukocytes 5.3 3.5 - 10.5 POWERCHART X109L Erythrocytes 3.52 (L) 3.90 - POWERCHART 5.03 [id number] Hemoglobin 10.5 (L) 12.0 - POWERCHART 15.5 GDL Hematocrit 32.2 (L) 34.9 - POWERCHART 44.5 MCV 91.5 81.6 - POWERCHART 98.3 FL HX RDW 14.2 11.9 - POWERCHART 15.5 Platelet Count 213 150 - 450 POWERCHART X109L HXDifferential? Auto POWERCHART Specimen (Source) Anatomical Collection Method Collection Time Re ceived Time Location / / Volume Laterality Blood 10/27/2014 6:22 AM CDT Jose Daniel Belle M.D. LAB BLOOD ADD-ON Performing Organization Address City/State/ZIP Code Phon e Number POWERCHART (ABNORMAL) BMP (Basic Metabolic Panel) (10/27/2014 6:22 AM CDT) [facility] Method Time Signature Sodium, S 143 135 - 145 POWERCHART MMOLL Potassium, S 4.5 3.5 - 5.1 POWERCHART MMOLL Chloride, S 110 (H) 98 - 107 POWERCHART MMOLL CO2 Total 23 22 - 29 POWERCHART MMOLL BUN (Blood Urea 22 6 - 24 MGDL POWERCHART Nitrogen), S Creatinine 1.8 (H) 0.6 - 1.1 POWERCHART MGDL Calcium, Total, 9.4 8.8 - 10.3 POWERCHART S MGDL Anion Gap 11 7 - 15 POWERCHART MMOLL HXeGFR (MDRD) 27.3 (L) >=60.0 POWERCHART MLMINSA eGFR 33.1 (L) >=60.0 POWERCHART Black/ MLMINSA Somali Glucose 83 70 - 140 POWERCHART MGDL Specimen (Source) Anatomical Collection Method Collection Time Re ceived Time Location / / Volume Laterality Blood 10/27/2014 6:22 AM CDT Jose Daniel Belle M.D. LAB BLOOD ADD-ON Performing Organization Address City/State/ZIP Code Phon e Number POWERCHART GI Pathogen Panel, PCR, F (10/26/2014 9:00 PM CDT) Component Value Ref Test Analysis Performed At [facility] Range Method Time Signature HXC Difficile POWERCHART Toxin DNA by PCR HXFinal Negative for POWERCHART Toxigenic Clostridium difficile by Nucleic Acid Amplification HXFinal Reference: POWERCHART Negative Specimen (Source) Anatomical Collection Method Collection Time Re ceived Time Location / / Volume Laterality Stool 10/26/2014 9:00 PM CDT Jose Daniel Belle M.D. LAB MICROBIOLOGY - GENERAL O RDERABLES Performing Organization Address City/State/ZIP Code Phon e Number POWERCHART Hemmoccult, POCT (nursing) (10/26/2014 7:30 PM CDT) P athologist Signature HXOccult Bld Negative Negative POWERCHART Stl I Specimen (Source) Anatomical Collection Method Collection Time Re ceived Time Location / / Volume Laterality Stool 10/26/2014 7:30 PM CDT Jose Daniel Belle M.D. LAB POCT ORDERABLES-MANUAL Performing Organization Address City/State/ZIP Code Phon e Number POWERCHART documented in this encounter Visit Diagnoses Not on filedocumented in this encounter
--- OUTSIDE RECORDS SUMMARY | 2022-01-19 14:58 | XMS_ITS | Encounter Summary ---
:1935 Author Organization [facility] Address [address] [place] [address] Care Team Providers Name Role Phone Unavailable Primary Care Provider Unavailable Encounter Details Date Type Department Care Team Description 03/02/2015 Hospital Encounter HX [facility] Vinnie Aguilar Jr., M.D. [address] [place], [place] [address] (Wo rk) Social History [...] geriatric Take 1 tablet by 0 01/30/2015 rivhlvid-upqn-urmh tablet mouth daily. simvastatin (ZOCOR) 10 mg Take 10 mg by 0 015 tablet mouth at bedtime. raNITIdine (ZANTAC) 150 mg 150 mg. 0 5 07/23/2020 tablet documented as of this encounter Miscellaneous Notes Miscellaneous - Conversion, Historical Provider Ser - 03/02/2015 11:[address] INTERPRETER Coding Summary-Paper Based CODING DATE: 03/05/2015 FINAL [facility] STATUS: * Discharged to Home or [...] terminology. Coded By: DARRICK FAGAN Date Saved: 03/05/2015 10:27 am Source: [facility] POWERCHART Document Id: [id number] documented in this encounter Plan of Treatment Not on filedocumented as of this encounter Procedures Procedure Name Priority Date/Time Associated Diagnosis Comme nts BI BREAST SCREENING Routine 03/02/2015 10:00 AM R esults for this BILATERAL OFFICIAL COURT INTERPRETER procedure are i n the results section. documented in this encounter Results BI Breast Screening Bilateral (03/02/2015 10:[address] INTERPRETER) Anatomical Region Laterality Modality Breast Bilateral Mammography Specimen (Source) Anatomical Collection Method Collection Time Re ceived Time Location / / Volume Laterality 03/02/2015 10:[address] INTERPRETER Addenda Addendum by Provider, Kelechi Rosario 03/02/2015 10:[address] INTERPRETER RAD^^^MA MA Mammo Screening w/ CADD 03/02/2015 10:00:00 Impressions 03/02/2015 10:[address] INTERPRETER BI-RADS 1. ??NEGATIVE. RECOMMENDATION: Routine yearly mammogram . BREAST MAMMOGRAPHY - GENERAL OBSERVATION S: ??The false negative rate for mammography is 15-20%. ??It cannot b e used, therefore, to replace the regular physical examination. ??A no rmal or noncontributory mammogram report also should not deter t he aggressive further workup of any suspected palpable masses. Narrative 03/02/2015 10:[address] INTERPRETER Bilateral digital screening Mammography with computer-aided detection, CAD. COMPARISON: 03/01/2014 HISTORY: 79 -year-old female with no caryl ast complaints or breast problems on today's screening mammogram. FINDINGS: Tissue density is scattered fi broglandular densities. There is been no interval change. Procedure Note Vincent Saul M.D. / Provider, Susie rowe M.D. - 08/21/2016 Bilateral digital screening Mammography with computer-aided detection, CAD. COMPARISON: 03/01/2014 HISTORY: 79 -year-old female with no caryl ast complaints or breast problems on today's screening mammogram. FINDINGS: Tissue density is scattered fi broglandular densities. There is been no interval change. IMPRESSION: BI-RADS 1. NEGATIVE. RECOMMENDATION: Routine yearly mammogram . BREAST MAMMOGRAPHY - GENERAL OBSERVATION S: The false negative rate for mammography is 15-20%. It cannot be used, therefore, to replace the regular physical examination. A norm al or noncontributory mammogram report also should not deter t he aggressive further workup of any suspected palpable masses. Jessica Bailey R.T.(R)(CT), R.T.(R)(M) IMG BI PROCEDURES documented in this encounter Visit Diagnoses Not on filedocumented in this encounter
--- OUTSIDE RECORDS SUMMARY | 2022-01-19 14:58 | XMS_ITS | Encounter Summary ---
:1935 Author Organization [facility] Address [address] [place] [address] Care Team Providers Name Role Phone Unavailable Primary Care Provider Unavailable Encounter Details Date Type Department Care Team Description 01/06/2016 Hospital Encounter HX [facility] ED Guido Rao M.D. [address] [place], [place] [phone] (Wo rk) Social History Tobacco Use Types Packs/Day Years Used Date Smoking Tobacco: Never Assessed Sex Assigned at Date Recorded Not on file documented as of this encounter Last Filed Vital Signs Vital Sign Reading Time Taken Comments Blood Pressure 140/69 01/06/2016 1:32 PM CDT Pulse 75 01/06/2016 1:32 PM CDT Temperature - - Respiratory Rate 20 01/06/2016 1:32 PM CDT Oxygen Saturation - - Inhaled Oxygen Concentration - - Weight - - Height - - Body Mass Index - - documented in this encounter Discharge Summaries Abraham Petersen, RXeniaN. - 01/06/2016 2:11 PM CDT ED Depart Summary [facility] Clinical Discharge Summary PERSON INFORMATION Name KAROLINE NUÑEZ Age 80 Years 1935 12:00 AM Sex Female Language Puerto Rican PCP BRITNEY BALDWIN MD Marital Status Visit Id Visit Reason Chest pain; Shoulder pain-swelling; shoulder pain Specialty Enc Type Emergency Med Service Emergency Medicine [facility] 01/06/2016 2:11 PM Tracking Id [id number] Checkout 01/06/2016 2:11 PM Checkin 01/06/2016 12:29 PM Acuity 3 -Urgent Dispo Type * Discharged to Home or Self Care Arrival 01/06/2016 12:29 PM Reg Status LOS 000 01:42 Address: [address] [place] [phone] Comment: PROVIDER INFORMATION Provider Role Provider Contact Time GUIDO RAO MD ED Provider 01/06/16 12:33 ABRAHAM PETERSEN VALUATION MANAGER Nurse 01/06/16 13:50 DIAGNOSIS Comment: PATIENT EDUCATION INFORMATION Instructions: CHEST PAIN, NonCardiac Follow up: With: Address: When: BRITNEY NICOLASA [address] [place] [phone] Business (1) Comments: follow up as needed with any questions or concerns Source: [facility] Cell[employer]apeCHART Document Id: [id number] Abraham Petersen, R.N. - 01/06/2016 2:11 PM CDT ED Discharge Instructions [address] [address] Name: KAROLINE NUÑEZ Date of : 1935 12:00 AM Visit Date: 01/06/2016 12:29 PM [facility] Number: [id number] Address: [address] [place] [phone] Primary Care Provider: BRITNEY BALDWIN MD IMPORTANT: [facility] in [place] would like to thank you for allowing us to assistyou with your healthcare needs. The following includes patient education materials and information regarding your injury/illness. Diagnosis: Follow-Up Instructions: With: Address: When: BRITNEY BALDWIN [address] [place] [phone] Business (1) Comments: follow up as needed with any questions or concerns Your Upcoming Appointments: Date Time Location Provider No Appointments found Patient Education Materials: Chest Pain, Noncardiac Based on your visit today, the exact cause of your chest pain is not certain. Your condition does not seem serious and your pain does not appear to be coming from your heart. However, sometimes the signs of a serious problem take more time to appear. Therefore, please watch for the warning signs listed below. Home Care: Rest today and avoid strenuous activity. Take any prescribed medicine as directed. Follow Up with your doctor or this facility as instructed or if you do not start to feel better within 24 hours. Get Prompt Medical Attention if any of [...] as directed by your healthcare provider ?? Swelling, pain or redness in one leg ?? [phone] [place] [address]. All rights reserved. This information is not [...] if you dont have one. Go to [email or web address] and click on Create Your Account. Then, follow the directions to complete the online form. Youll be asked for your [facility] number which you can find at the top of this document. ED Tests and Procedures: Order Status Automated Diff-5 Part Completed Basic Metabolic Panel Completed CBC (includes Auto Differential) Completed Troponin T Completed XR Chest 2 Views Completed EKG-Lab Completed Discharge Prescriptions & Home Medications: Medication/Strength [...] document has images extracted. Please consider using [employer] for all your patient education needs. Source: [employer] POWERCHART Document Id: [id number] documented in this encounter Medications at Time of Discharge Medication Sig Dispensed Refills Start Date End Date cholecalciferol (VITAMIN Take 1,000 Units 0 11/14 D3) 1,000 Unit capsule by mouth daily. geriatric Take 1 tablet by 0 01/30/2015 [id number] tablet mouth daily. simvastatin (ZOCOR) 10 mg Take 10 mg by 0 015 tablet mouth at bedtime. raNITIdine (ZANTAC) 150 mg 150 mg. 0 5 07/23/2020 tablet documented as of this encounter ED Notes Abraham Petersen R.N. - 01/06/2016 2:10 PM CDT ED Treatments and Procedures ED Treatments and Procedures Entered On: 01/06/2016 14:10 CDT Performed On: 01/06/2016 14:10 CDT by ABRAHAM PETERSEN RN Peripheral IV Peripheral IV Assess/Intervention Grid Peripheral IV #1 IV Activity : Discontinue Removal : Catheter intact, Hemostasis within expected timeframe Date of Insertion : 01/06/2016 CDT IV Site : Antecubital Laterality : Right Catheter Size : 18 Catheter Type : Over the needle ABRAHAM PETERSEN RN - 01/06/2016 14:10 CDT Source: [employer] Document Id: [id number] CDT!11 Abraham Petersen R.N. - 01/06/2016 2:10 PM CDT ED Disposition Summary ED Disposition Summary Entered On: 01/06/2016 14:10 CDT Performed On: 01/06/2016 14:10 CDT by ABRAHAM PETERSEN RN ED Disposition Summary Present in Room During Exam/Procedure : Daughter Mode of Discharge : Ambulatory Transportation : Private vehicle Printed Discharge Instructions Given to Patient : Yes Patient Status at Discharge from ED : Improved ABRAHAM PETERSEN RN - 01/06/2016 14:10 CDT Source: [facility] POWERCHART Document Id: [id number] CDT!7 Abraham Petersen R.N. - 01/06/2016 2:09 PM CDT ED Nurse Reassess ED Nurse Reassess Entered On: 01/06/2016 14:10 CDT Performed On: 01/06/2016 14:09 CDT by ABRAHAM PETERSEN RN Pain Assessment Pain Symptoms : Yes ABRAHAM PETERSEN RN - 01/06/2016 14:09 CDT Pain Scale Pain Scale Verbal 0-10 : Open ABRAHAM PETERSEN RN - 01/06/2016 14:09 CDT Pain Pain Assessment Grid Pain 1 Pain 2 Location : Shoulder Chest Laterality : Right Intensity : 3 Quality : Aching ABRAHAM PETERSEN RN - 01/06/2016 14:09 CDT ABRAHAM PETERSEN RN - 01/06/2016 14:09 CDT Comfort Measures Patient Response : denies chest pain ABRAHAM PETERSEN RN - 01/06/2016 14:09 CDT Resp Reassess Respiratory Patient Stated Symptoms : None ABRAHAM PETERSEN RN - 01/06/2016 14:09 CDT CV Reassess CV Patient Stated Symptoms : None ABRAHAM PETERSEN RN - 01/06/2016 14:09 CDT Neuro Reassess Last Well Time Known : Not applicable Orientation : Oriented x 3 Characteristics of Speech : Clear Level of Consciousness : Alert Neuro Patient Stated Symptoms : None Gait : Steady ABRAHAM PETERSEN RN - 01/06/2016 14:09 CDT [place] Coma Eye Opening Response [place] : Spontaneously Best Verbal Response [place] : Oriented Best Motor Response [place] : Obeys simple commands [place] Coma Score : 15 ABRAHAM PETERSEN RN - 01/06/2016 14:09 CDT Behavioral Health Screen/Safety Reassmt Affect/Behavior : Calm, Cooperative, Appropriate ABRAHAM PETERSEN RN - 01/06/2016 14:09 CDT GI Reassess GI Patient Stated Symptoms : None ABRAHAM PETERSEN RN - 01/06/2016 14:09 CDT /OB Reassess Patient Stated Symptoms : None ABRAHAM PETERSEN RN - 01/06/2016 14:09 CDT Source: [employer] Document Id: [id number] CDT!38 Abraham Petersen R.N. - 01/06/2016 1:32 PM CDT ED Nurse Reassess ED Nurse Reassess Entered On: 01/06/2016 13:34 CDT Performed On: 01/06/2016 13:32 CDT by ABRAHAM PETERSEN RN Pain Assessment Pain Symptoms : Yes ABRAHAM PETERSEN RN - 01/06/2016 13:32 CDT Pain Scale Pain Scale Verbal 0-10 : Open ABRAHAM PETERSEN RN - 01/06/2016 13:32 CDT Pain Pain Assessment Grid Pain 1 Pain 2 Location : Shoulder Chest Laterality : Right Intensity : 5 ABARHAM PETERSEN RN - 01/06/2016 13:32 CDT ABRAHAM PETERSEN RN - 01/06/2016 13:32 CDT Comfort Measures Comfort Measures Grid Positioning : Yes Quiet Environment : Yes ABRAHAM PETERSEN RN - 01/06/2016 13:32 CDT Resp Reassess Respiratory Patient Stated Symptoms : None ABRAHAM PETERSEN RN - 01/06/2016 13:32 CDT Musculoskeletal Reassess Musculoskeletal Note : right shoulder pain ABRAHAM PETERSEN RN - 01/06/2016 13:32 CDT Source: [employer] Document Id: [id number] CDT!21 Guido Rao M.D. - 01/06/2016 12:51 PM CDT Shoulder pain-swelling Document Contains Addenda Patient: KAROLINE NUÑEZ Age: 80 years Sex: Female : 1935 Author: GUIDO RAO MD Attachments: None Basic Information Time seen: Immediately upon arrival. History source: Patient, daughter. Arrival mode: Private vehicle. History limitation: None. Additional information: Chief Complaint from Nursing Triage Note : Chief Complaint Description 01/06/2016 12:35 CDT Chief Complaint Description Pt. presents to Er with complalnts of right shoulder pain, right arm numbness, and tingling in her hands. Also complains of chest discomfort earlier today. Was seen in clinic yesterday for back and shoulder pain. Denies shortness of breath. . History of Present Illness The patient presents with right, shoulder pain, mild chest discomfort this am lasting 4 minutes in duration, central, without nausea/lightheadedness/dizziness/SOB: complaints of right hand tingling of 5 minutes duration and dry mouth, increased sleepiness since yesterday since she went to Dr. Ed Greco he gave her cyclobenzaprine for left shoulder spasm. The course/duration of symptoms is fluctuating in intensity. Type of injury: none. Radiating pain: right side of the neck. right side of the back. central back. lower back. The character of symptoms is pain and spasm of the trapezius muscle. Thedegree of pain is 4 /10. . The degree of swelling is none. There are exacerbating factors including movement and palpation. The relieving factor is none. Prior episodes: occasional and pt with scoliosis and severe DDD. Review of Systems Constitutional symptoms: Negative except as documented in HPI. Skin symptoms: Negative except as documented in HPI. 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 Surgical history: No active procedure history items have been selected or recorded.. Family history: No family history items have been selected or recorded.. Physical Examination Vital Signs: Vital Signs 01/06/2016 13:32 CDT Temperature Core 36.9 DegC Peripheral Pulse Rate 75 /min Respiratory Rate 20 /min SpO2 98 % Limb Alert Question No Systolic Blood Pressure 140 mmHg Diastolic Blood Pressure 69 mmHg BP Location Right upper 01/06/2016 12:35 CDT Temperature Core 36.9 DegC Peripheral Pulse Rate 76 /min Respiratory Rate 20 /min SpO2 97 % Limb Alert Question No Systolic Blood Pressure 158 mmHg HI Diastolic Blood Pressure 91 mmHg >HHI Mean Arterial Pressure 113 mmHg BP Location Left upper . General: Alert and no acute distress. Skin: Warm, intact, moist and no rash. Head: Normocephalic. Neck: Supple and though with palpable muscle spasm of the right trapezius muscle. Eye: Pupils are equal, round and reactive to light. Cardiovascular: Regular rate and rhythm. Respiratory: Lungs are clear to auscultation, breath sounds are equal and Symmetrical chest wall expansion. Medical Decision Making OrdersLaunch Orders Laboratory: Troponin T (Order Processing): Stat, 01/06/2016 12:52 CDT, Once CBC (includes Auto Differential) (Order Processing): Stat, 01/06/2016 12:52 CDT, Once Basic Metabolic Panel (Order Processing): Stat, 01/06/2016 12:52 CDT, Once Patient Care: ED Saline Lock (Order Processing) Peripheral IV (Order Processing): 01/06/2016 12:52 CDT Pharmacy: Saline flush (Order Processing): 10 mL, IV Push, PRN, PRN: Maintain IV access Radiology: XR Chest 2 Views (Order Processing): 01/06/2016 12:52 CDT, pain, Stat, Patient Bed, Once, 01/06/201612:52 CDT, MAQN ED Diagnostic Tests: EKG (Order Processing): 01/06/2016 12:52 CDT, Reason: EKG, Stat, Stat, MAQN ED. Results review:Lab results : Lab View 01/06/2016 12:50 CDT Hgb 12.7 g/dL Hct 38.6 % WBC 6.2 x10(9)/L RBC 4.30 x10(12)/L MCV 89.8 fL RDW 15.2 % Platelet 194 x10(9)/L Neutro Absolute 3.43 10(9)/L Lymph Absolute 1.95 x10(9)/L Johnson Absolute 0.71 x10(9)/L Eos Absolute 0.11 x10(9)/L Baso Absolute 0.03 x10(9)/L Differential? Auto Sodium Lvl 140 mmol/L Potassium Lvl 3.8 mmol/L Chloride 104 mmol/L CO2 24 mmol/L AGAP 12 mmol/L Glucose Lvl 105 mg/dL Creatinine 1.1 mg/dL EGFR (MDRD) 47.9 mL/min/SA LOW EGFR (MDRD) 58.1 mL/min/SA LOW BUN 15 mg/dL Calcium Lvl 9.2 mg/dL Troponin-T <0.010 ng/mL . Radiology results: * Final Report * Reason For Exam pain Report EXAM: Chest, 2 images INDICATION: pain COMPARISON: Chest radiograph from October 29, 2014 TECHNIQUE: Frontal and lateral views of the chest are obtained. FINDINGS: There is mild right basilar subsegmental atelectasis. The lungs and costophrenic sulci are otherwise clear. No pneumothorax. The cardiomediastinal contours are within normal limits. A moderate-sized hiatal hernia is present. Dextroconvex curvature of the lumbar spine. The bones appear osteopenic. Vascular calcifications are present. IMPRESSION: 1. No acute cardiopulmonary abnormality. 2. Moderate-sized hiatal hernia. Signature Line Final Dictated: 01/06/2016 1:50 pm ELIUD RODRIGUEZ MD Signed (Electronic Signature): 01/06/2016 1:53 pm Transcribed by: KAVITA Technologist: DANITA LYNCH . Notes: * Final Report * Muse[employer] Test Reason : EKG Blood Pressure : / mmHG Vent. Rate : 074 BPM Atrial Rate : 074 BPM P-R Int : 156 ms QRS Dur : 086 ms QT Int : 380 ms P-R-T Axes : 048 055 050 degrees QTc Int : 421 ms Sinus rhythm Premature ventricular complexes Otherwise normal ECG When compared with ECG of 22-OCT-2014 08:19, Premature ventricular complexes are now present Referred By: GUIDO RAO Confirmed By:KAREEM REED MD *Insert Addendum Here: . Impression and Plan Diagnosis trapezius spasm Chest pain atypical Plan Condition: Stable. Disposition: Discharged: Time 01/06/2016 14:03:00, to home. Patient was given the following educational materials: CHEST PAIN, NonCardiac. Follow up with: BRITNEY BALDWIN follow up as needed with any questions or concerns. Counseled: Patient, Family, Regarding diagnosis, Regarding diagnostic results, Regarding treatment plan, Regarding prescription, Patient indicated understanding of instructions. Notes: I have recommended replace Cyclobenzaprine (ON Beers list) with Tylenol as needed for pain. Electronically Signed By: GUIDO RAO MD On: 01/06/2016 02:06 PM Modified by and Electronically Signed by: GUIDO RAO MD On: 01/06/2016 02:06 PM Source: [facility] POWERCHART Document Id: [id number]} Abraham Petersen RAbimbola - 01/06/2016 12:35 PM CDT ED Primary Assessment Document Has Been Updated ED Primary Assessment Entered On: 01/06/2016 13:06 CDT Performed On: 01/06/2016 12:35 CDT by ABRAHAM PETERSEN RN Reason For Visit (As Of: 01/06/2016 13:30:00 CDT) Problems(Active) Chronic Renal Failure Stage IV GFR 15-29 (ICD-9-CM :585.4 ) Name of Problem: Chronic Renal Failure Stage IV GFR 15-29 ; Recorder: MIKE PAZ MD; Confirmation: Confirmed ; Classification: Medical; Code: 585.4 ; Contributor System: PowerChart ; Last Updated: 10/19/2014 21:38 CDT ; Life Cycle Date: 10/19/2014 ; Life Cycle Status: Active ; Vocabulary: ICD-9-CM Depression NOS (ICD-9-CM :311 ) Name of Problem: Depression NOS ; Recorder: MIKE PAZ MD; Confirmation: Confirmed ; Classification: Medical ; Code: 311 ; Contributor System: PowerChart ; Last Updated: 10/19/2014 21:39 CDT ; Life Cycle Date: 10/19/2014 ; Life Cycle Status: Active ; Vocabulary: ICD-9-CM Disease Gastroesophageal Reflux (GERD JAMEY) (ICD-9-CM :530.81 ) Name of Problem: Disease Gastroesophageal Reflux (GERD JAMEY) ; Recorder: MIKE PAZ MD; Confirmation: Confirmed ; Classification: Medical ; Code: 530.81 ; Contributor System: PowerChart ; Last Updated: 10/19/2014 21:37 CDT ; Life Cycle Date: 10/19/2014 ; Life Cycle Status: Active ; Vocabulary: ICD-9-CM Hypertension (HTN) Essential NOS (ICD-9-CM :401.9 ) Name of Problem: Hypertension (HTN) Essential NOS ; Recorder: MIKE PAZ MD; Confirmation: Confirmed ; Classification: Medical ; Code: 401.9 ;Contributor System: PowerChart ; Last Updated: 10/19/2014 21:37 CDT ; Life Cycle Date: 10/19/2014 ; Life Cycle Status: Active ; Vocabulary: ICD-9-CM 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 ) Name of Problem: Regurgitation Tricuspid NOS ; Recorder: MIKE PAZ MD; Confirmation: Confirmed ; Classification: Medical ; Code: 397.0 ; Contributor System: PowerChart ; Last Updated: 10/19/2014 21:38 CDT ; Life Cycle Date: 10/19/2014 ; Life CycleStatus: Active ; Vocabulary: ICD-9-CM Diagnoses(Active) Chest pain Date: 01/06/2016 ; Diagnosis Type: Reason For Visit ; Confirmation: Complaint of ; Clinical Dx: Chest pain ; Classification: Medical ; Clinical Service: Emergency medicine ; Code: PNED ; Probability: 0 ; Diagnosis Code: [id number] Shoulder pain-swelling Date: 01/06/2016 ; Diagnosis Type: Reason For Visit ; Confirmation: Confirmed; Clinical Dx: Shoulder pain-swelling ; Classification: Medical ; Clinical Service: Emergency medicine ; Code: PNED ; Probability: 0 ; Diagnosis Code: [id number] Triage Chief Complaint Description : Pt. presents to Er with complalnts of right shoulder pain, right arm numbness, and tingling in her hands. Also complains of chest discomfort earlier today. Was seen in clinic yesterday for back and shoulder pain. Denies shortness of breath. Started taking (Comment: cyclobeneprine yesterday. [ABRAHAM PETERSEN RN - 01/06/2016 13:28 CDT] ) ABRAHAM PETERSEN RN - 01/06/2016 13:28 CDT Information Given By : Patient Present in Room During Exam/Procedure : Daughter Mode of Arrival ED : Private vehicle Track : Medical Languages : Puerto Rican Vital Signs Assessed : Yes Treatments Prior to Arrival : None Is Patient Female and 13-50 no hysterectomy : No ABRAHAM PETERSEN - 01/06/2016 12:58 CDT Vital Signs Temperature Core : 36.9 DegC(Converted to: 98.4 DegF) Limb Alert Question : No Peripheral Pulse Rate : 76 /min Respiratory Rate : 20 /min Systolic Blood Pressure : 158 mmHg (HI) Diastolic Blood Pressure : 91 mmHg (>HHI) NIBP Mean : 113 mmHg BP Location : Left upper extremity SpO2 : 97 % Oxygen Saturation Monitoring Frequency : Intermittent Oxygen Therapy : Room air ABRAHAM PETERSEN - 01/06/2016 12:58 CDT Pain Assessment Pain Symptoms : Yes ABRAHAM PETERSEN 01/06/2016 12:58 CDT Pain Scale Pain Scale Verbal 0-10 : Open ABRAHAM PETERSEN 01/06/2016 12:58 CDT Pain Pain Assessment Grid Pain 1 Pain 2 Location : Shoulder Chest ABRAHAM PETERSEN 01/06/2016 12:58 CDT ABRAHAM PETERSEN - 01/06/2016 12:58 CDT Comfort Measures Comfort Measures Grid Positioning : Yes ABRAHAM PETERSEN - 01/06/2016 12:58 CDT ED Physician Notification Time ED Physician Notification Time : 01/06/2016 12:35 CDT ABRAHAM PETERSEN - 01/06/2016 12:58 CDT JOANA JOANA Level 1 : No JOANA Level 2 : Yes ABRAHAM PETERSEN 01/06/2016 12:58 CDT DCP GENERIC CODE Tracking Group : MAQN ED Tracking Acuity : 3 -Urgent ABRAHAM PETERSEN 01/06/2016 12:58 CDT Allergy (As Of: 01/06/2016 13:06:01 CDT) Allergies (Active) Septra Estimated Onset Date: Unspecified ; Created By: STEFANIE BALDWIN MD; Reaction Status: Active ; Category: Drug ; Substance: Septra ; Type: Allergy ; Updated By: STEFANIE BALDWIN MD; Reviewed Date: 01/06/2016 13:02 CDT zinc acetate containing compounds Estimated Onset Date: Unspecified ; Reactions: rash ; Created By: GAGAN TRAN; Reaction Status: Active ; Category: Drug ; Substance: zinc acetate containing compounds ; Type: Allergy ; Updated By: GAGAN TRAN; Reviewed Date: 01/06/2016 13:02 CDT ID Screen Drug Resistant Organism : No Travel Within Last 21 Days : No Contact with someone with Ebola : No ABRAHAM PETERSEN 01/06/2016 12:58 CDT TB Symptoms Grid Bloody Sputum : No Fatigue : No Fever : No Loss of Appetite : No Night Sweats : No Persistent Cough Greater Than 3 Weeks : No Weight Loss : No ABRAHAM PETERSEN 01/06/2016 12:58 CDT Alcohol and Drug Use : No Employee of Institutional Living Environment : No Health Care Employee : No History of Exposure to TB : No History of Positive Chest X-Ray for TB : No History of Positive TB Skin Test : No Homeless : No Known Immunosuppression : No Recent Immigrant : No Resident of Institutional Living Environment : No ABRAHAM PETERSEN 01/06/2016 12:58 CDT Immunizations Immunizations Current : Yes ABRAHAM PETERSEN 01/06/2016 12:58 CDT Respiratory Airway : Patent Respirations : Unlabored Respiratory Pattern : Regular Oxygen Therapy : Room air ABRAHAM PETERSEN 01/06/2016 12:58 CDT Cardiovascular Heart Rhythm : Regular Skin Color : [place] Skin Description : Dry Skin Temperature : Warm Cardiovascular Detailed Assessment : Yes Monitoring Lead : II Monitoring Lead Electroplater Apprentice : Initiated ABRAHAM PETERSEN 01/06/2016 12:58 CDT CV Detailed CV Patient Stated Symptoms : Chest pain Nail Bed Color : [place] Capillary Refill : Less than 2 seconds Cardiac Rhythm : Sinus rhythm, PAC, PVC Ectopy Frequency : None ABRAHAM PETERSEN 01/06/2016 12:58 CDT Neurological Last Well Time Known : Not applicable Level of Consciousness : Alert Orientation : Oriented x 3 Characteristics of Speech : Clear Neuro Patient Stated Symptoms : None Gait : Steady Swallowing Difficulty/Aspiration Risk : None ABRAHAM PETERSEN DEONNA 01/06/2016 12:58 CDT ED Psychosocial Affect/Behavior : Calm, Cooperative, Appropriate Domestic Abuse Concerns : Unable to Screen Behavioral Health Screen/Safety Assmt : No ABRAHAM PETERSEN DEONNA 01/06/2016 12:58 CDT Gastrointestinal Nutrition ED : Adequate ABRAHAM PETERSEN DEONNA 01/06/2016 12:58 CDT /OB Assessment Patient Stated Symptoms : None ABRAHAM PETERSEN RN - 01/06/2016 12:58 CDT Musculoskeletal Fall Prevention Education Provided : Yes Musculoskeletal Note : right shoulder tenderness with palpation ABRAHAM PETERSEN RN - 01/06/2016 12:58 CDT Social Habits Exposure to Tobacco Smoke : Care provider denies smoking in home Smoking Status : Never smoker Tobacco 2A : No Tobacco Use/Currently Using : No Tobacco Use/Last 30 Days : No Tobacco Use/Last 12 months : No ABRAHAM PETERSEN RN - 01/06/2016 12:58 CDT Peripheral IV Peripheral IV Assess/Intervention Grid Peripheral IV #1 IV Activity : Start Number of Attempts : 1 Date of Insertion : 01/06/2016 CDT IV Site : Antecubital Laterality : Right Catheter Size : 18 Catheter Type : Over the needle Site Condition : No complications ABRAHAM PETERSEN RN - 01/06/2016 12:58 CDT Source: [employer] Document Id: [id number] CDT!3 documented in this encounter Miscellaneous Notes Miscellaneous - Conversion, Historical Provider Ser - 01/06/2016 2:11 PM CDT Coding Summary-Paper Based CODING DATE: 01/17/2016 FINAL [facility] STATUS: * Discharged to Home or Self Care PAYOR: Medicare ADMIT DX: M25.511 Pain in right shoulder REASON FOR VISIT DX: M25.511 Pain in right shoulder FINAL DX: PRINCIPAL: M25.511 Pain in right shoulder SECONDARY: R07.89 Other chest pain I12.9 Hypertensive chronic kidney disease with stage 1 through stage 4 chronic kidney disease, or unspecified chronic kidney disease N18.4 Chronic kidney disease, stage 4 (severe) Z88.1 Allergy status to other antibiotic agents status Z88.8 Allergy status to other drugs, medicaments and biological substances status PROCEDURES DOCTOR NAME DATE NOTE: The code number assigned matches the documented diagnosis and / or procedure in the patient's chart. However, the narrative phrase printed from the coding software may appear abbreviated, or result in slightly different terminology. Coded By: FRANKY JOHNSON Date Saved: 01/17/2016 01:21 pm Source: [facility] POWERCHART Document Id: [id number] Miscellaneous - Abraham Petersen R.N. - 01/06/2016 2:10 PM CDT Valuables/Belongings Valuables/Belongings Entered On: 01/06/2016 14:10 CDT Performed On: 01/06/2016 14:10 CDT by ABRAHAM PETERSEN RN Valuables/Belongings Belongings Sent Home With : patient ABRAHAM PETERSEN RN - 01/06/2016 14:10 CDT Source: [facility] [employer] Document Id: [id number] CDT!3 Miscellaneous - Abraham Petersen R.N. - 01/06/2016 12:29 PM CDT Facility Charge Ticket 2.0 11.0 DX Facility Charge Ticket 2.0 11.0 DX Entered On: 01/06/2016 14:10 CDT Performed On: 01/06/2016 12:29 CDT by ABRAHAM PETERSEN RN Facility Charge Ticket 2.0 11.0 DX ED Other Charges : Standard ED Encounter TVL Level Translated RTF : Shoulder pain-swelling, Chest pain TVL:5 TVL Level for Facility Charge Ticket : Level 5 Arrival Mode Calc : 1 Mode of Arrival ED : Private vehicle [facility] Mode of Arrival Interpreted : Standard [facility] Process Management : None Order Management RTF : Laboratory Basic Metabolic Panel,01/06/16 12:52,GUIDO RAO MD Completed CBC (includes Auto Differential),01/06/16 12:52,GUIDO RAO MD Completed Troponin T,01/06/16 12:52,GUIDO RAO MD Completed Notification Only,01/06/16 12:52,GUIDO RAO MD Completed Automated Diff-5 Part,01/06/16 13:02,GUIDO RAO MD Completed Xray XR Chest 2 Views,01/06/16 12:52,GUIDO RAO MD Completed [facility] Order Management : Lab tests, Xray - plain films 30 Minutes Critical Care : No Nursing Notes RTF : Nursing Notes ED Primary Assessment,01/06/16 12:35,ABRAHAM PETERSEN VALUATION MANAGER Nurse Reassess,01/06/16 14:09,ABRAHAM PETERSEN VALUATION MANAGER Nurse Reassess,01/06/16 13:32,ABRAHAM PETERSEN RN [facility] Nursing Assessment : Triage and 3-5 nursing assessments [facility] Disposition : Discharge Disposition RTF : discharge [facility] Total Points with Diagnosis Control : 14 [facility] Visit Level : 69683 Level 5 Treatments Prior to Arrival : None ABRAHAM PETERSEN RN - 01/06/2016 14:10 CDT [facility] Document Id: [id number] CDT!19 documented in this encounter Plan of Treatment Not on filedocumented as of this encounter Procedures Procedure Name Priority Date/Time Associated Diagnosis Comme nts DX CHEST AP OR PA Routine 01/06/2016 1:29 PM Resu lts for this AND LATERAL 2 VIEWS CDT procedur e are in the results section. AUTOMATED Routine 01/06/2016 12:50 PM Results for this DIFFERENTIAL, B CDT procedure ar e in the results section. CBC WITH Routine 01/06/2016 12:50 PM Results for this DIFFERENTIAL, B CDT procedure ar e in the results section. TROPONIN T, 5TH Routine 01/06/2016 12:50 PM Resul ts for this GEN, P CDT procedure are i n the results section. BASIC METABOLIC Routine 01/06/2016 12:50 PM Resul ts for this PANEL, S/P CDT procedure are i n the results section. ECG Routine 01/06/2016 12:43 PM Results for this CDT procedure are i n the results section. documented in this encounter Results DX Chest Anterior Posterior or Posterior Anterior and Lateral 2 Views (01/06/2016 1:29 PM CDT) Anatomical Region Laterality Modality Chest N/A Radiographic Imaging Specimen (Source) Anatomical Collection Method Collection Time Re ceived Time Location / / Volume Laterality 01/06/2016 1:29 PM CDT Addenda Addendum by Provider, Historical, M.D. o desiree 01/06/2016 1:29 PM CDT RAD^^^MA XR Chest 2 Views 01/06/2016 13:29:08 Impressions 01/06/2016 1:53 PM CDT 1. ??No acute cardiopulmonary abnormalit y. 2. ??Moderate-sized hiatal hernia. Narrative 01/06/2016 1:53 PM CDT EXAM: Chest, 2 images INDICATION: pain COMPARISON: Chest radiograph from October 112014 TECHNIQUE: Frontal and lateral views of the chest are obtained. FINDINGS: There is mild right basilar whipple bsegmental atelectasis. The lungs and costophrenic sulci are otherwi se clear. No pneumothorax. The cardiomediastinal contours are withi n normal limits. A moderate-sized hiatal hernia is present. Dextroconvex curvature of the lumbar spine. The bones appear osteo penic. Vascular calcifications are present. Procedure Note Eliud Rodriguez M.D. / ProviderSuad M.D. - 08/16/2016 EXAM: Chest, 2 images INDICATION: pain COMPARISON: Chest radiograph from October 112014 TECHNIQUE: Frontal and lateral views of the chest are obtained. FINDINGS: There is mild right basilar whipple bsegmental atelectasis. The lungs and costophrenic sulci are otherwi se clear. No pneumothorax. The cardiomediastinal contours are withi n normal limits. A moderate-sized hiatal hernia is present. Dextroconvex curvature of the lumbar spine. The bones appear osteo penic. Vascular calcifications are present. IMPRESSION: 1. No acute cardiopulmonary abnormality. 2. Moderate-sized hiatal hernia. Danita Lynch RXeniaTXenia(R)(CT), R.T.(R) IMG DIAGNOSTIC IMAGIN G PROCEDURES Automated Differential (01/06/2016 12:50 PM CDT) P athologist Signature Absolute 3.43 1.70 - POWERCHART Neutrophils 7.00 109L Lymphocytes 1.95 0.90 - POWERCHART 2.90 X109L Monocytes 0.71 0.30 - POWERCHART 0.90 X109L Eosinophils 0.11 0.05 - POWERCHART 0.50 X109L Absolute 0.03 0.00 - POWERCHART Basophil 0.30 X109L Specimen Anatomical Collection Method Collection Time Receive d Time (Source) Location / / Volume Laterality Blood 01/06/2016 12:50 01/06/2016 PM CDT 12:50 PM CDT Guido Rao M.D. LAB BLOOD ADD-ON Performing Organization Address City/State/ZIP Code Phon e Number POWERCHART CBC with Differential (01/06/2016 12:50 PM CDT) P athologist Signature Leukocytes 6.2 3.5 - 10.5 POWERCHART X109L Erythrocytes 4.30 3.90 - POWERCHART 5.03 [id number] Hemoglobin 12.7 12.0 - POWERCHART 15.5 GDL Hematocrit 38.6 34.9 - POWERCHART 44.5 MCV 89.8 81.6 - POWERCHART 98.3 FL HX RDW 15.2 11.9 - POWERCHART 15.5 Platelet Count 194 150 - 450 POWERCHART X109L HXDifferential? Auto POWERCHART Specimen (Source) Anatomical Collection Method Collection Time Re ceived Time Location / / Volume Laterality Blood 01/06/2016 12:50 PM CDT Guido Rao M.D. LAB BLOOD ADD-ON Performing Organization Address City/[facility] Phon e Number POWERCHART Troponin T (01/06/2016 12:50 PM CDT) P athologist Signature Troponin T, S <0.010 <=0.010 POWERCHART NGML Comment: Values > or = 0.01 ng/mL have been shown to have prognostic value. Biotin has been identified by the [facility] as a potential interfering substance. Higher concentrations of biotin may be found in multivitamins, hair/nail supplements, and workout supplements. If the result does not match clinical observat ions, repeat testing after patient refrains from the use of supplements for at least 12 hours. Specimen (Source) Anatomical Collection Method Collection Time Re ceived Time Location / / Volume Laterality Blood 01/06/2016 12:50 PM CDT Guido Rao M.D. LAB BLOOD ADD-ON Performing Organization Address City/State/ZIP Code Phon e Number POWERCHART (ABNORMAL) BMP (Basic Metabolic Panel) (01/06/2016 12:50 PM CDT) [facility] gist Method Time Signature Sodium, S 140 135 - 145 POWERCHART MMOLL Potassium, S 3.8 3.5 - 5.1 POWERCHART MMOLL Chloride, S 104 98 - 107 POWERCHART MMOLL CO2 Total 24 22 - 29 POWERCHART MMOLL BUN (Blood Urea 15 6 - 24 MGDL POWERCHART Nitrogen), S Creatinine 1.1 0.6 - 1.1 POWERCHART MGDL Calcium, Total, 9.2 8.8 - 10.3 POWERCHART S MGDL Anion Gap 12 7 - 15 POWERCHART MMOLL HXeGFR (MDRD) 47.9 (L) >=60.0 POWERCHART MLMINSA eGFR 58.1 (L) >=60.0 POWERCHART Black/ MLMINSA Vincentian Glucose 105 70 - 140 POWERCHART MGDL Specimen (Source) Anatomical Collection Method Collection Time Re ceived Time Location / / Volume Laterality Blood 01/06/2016 12:50 PM CDT Guido Rao M.D. LAB BLOOD ADD-ON Performing Organization Address City/State/ZIP Code Phon e Number POWERCHART ECG 12 Lead (01/06/2016 12:43 PM CDT) Specimen (Source) Anatomical Collection Method Collection Time Re ceived Time Location / / Volume Laterality 01/06/2016 12:43 PM CDT [facility] - 01/06/2016 12:43 PM CDT Test Reason : EKG Blood Pressure : / mmHG Vent. Rate : 074 BPM ? Atrial Rate : 074 BPM ?? P-R Int : 156 ms ?QRS D ur : 086 ms ?QT Int : 380 ms ? P-R-T Axe s : 048 055 050 degrees ?? QTc Int : 421 ms Sinus rhythm Premature ventricular complexes Otherwise normal ECG When compared with ECG of 22-OCT-2014 08 :19, Premature ventricular complexes are now present Referred By: GUIDO RAO ? Confirmed By:KAREEM REED MD Procedure Note Provider, Keelchi Rosario - 08/28/2016F ormatting of this note might be different from the original. Test Reason : EKG Blood Pressure : / mmHG Vent. Rate : 074 BPM Atrial Rate : 074 B PM P-R Int : 156 ms QRS Dur : 086 ms QT Int : 380 ms P-R-T Axes : 048 055 05 0 degrees QTc Int : 421 ms Sinus rhythm Premature ventricular complexes Otherwise normal ECG When compared with ECG of 22-OCT-2014 08 :19, Premature ventricular complexes are now present Referred By: GUIDO RAO Confirmed By:Sonny REED MD Kareem Reed M.D., M.B. ECG ORDERABLES Performing Organization Address City/State/ZIP Code Phon e Number [facility] [address] [place] [phone] documented in this encounter Visit Diagnoses Not on filedocumented in this encounter
--- OUTSIDE RECORDS SUMMARY | 2022-01-19 14:59 | XMS_ITS | Encounter Summary ---
:1935 Author Organization [facility] Address [address] [place] [address] Care Team Providers Name Role Phone Unavailable Primary Care Provider Unavailable Encounter Details Date Type Department Care Team Description 02/23/2012 Hospital Encounter HX NO MAPPING Eric Gaffney M.D. [address] [place], [place] [phone] (Wo rk) Social History Tobacco Use Types Packs/Day Years Used Date Smoking Tobacco: Never Assessed Sex Assigned at Date Recorded Not on file documented as of this encounter Plan of Treatment Not on filedocumented as of this encounter Procedures Procedure Name Priority Date/Time Associated Diagnosis Comme nts BI BREAST SCREENING Routine 02/23/2012 8:08 AM Re sults for this BILATERAL WOOD BARREL RECONDITIONER procedure are i n the results section. documented in this encounter Results BI Breast Screening Bilateral (02/23/2012 8:08 AM WOOD BARREL RECONDITIONER) Anatomical Region Laterality Modality Breast Bilateral Mammography Specimen (Source) Anatomical Collection Method Collection Time Re ceived Time Location / / Volume Laterality 02/23/2012 8:08 AM WOOD BARREL RECONDITIONER Addenda Addendum by Provider, Kelechi Rosario 02/23/2012 8:08 AM WOOD BARREL RECONDITIONER RAD^^^LUIZ MA MAMMO SCREENING W CADD 02/23/2012 08:08:00 Impressions 02/23/2012 8:23 AM WOOD BARREL RECONDITIONER BI-RADS 1. ??NEGATIVE. RECOMMENDATION: Routine yearly mammogram . BREAST MAMMOGRAPHY - GENERAL OBSERVATION S: ??The false negative rate for mammography is 15-20%. ??It cannot b e used, therefore, to replace the regular physical examination. ??A no rmal or noncontributory mammogram report also should not deter t he aggressive further workup of any suspected palpable masses. Narrative 02/23/2012 8:23 AM WOOD BARREL RECONDITIONER Bilateral digital screening Mammography with computer-aided detection, CAD. COMPARISON: 02/20/2011. HISTORY: 76 -year-old female with no caryl ast complaints or breast problems on today's screening mammogram. FINDINGS: Tissue density is scattered fi broglandular densities. There has been no interval change. Procedure Note Vincent Saul M.D. / Provider, Susie rowe M.D. - 09/03/2016 Bilateral digital screening Mammography with computer-aided detection, CAD. COMPARISON: 02/20/2011. HISTORY: 76 -year-old female with no caryl ast complaints [...]
--- OUTSIDE RECORDS SUMMARY | 2022-01-19 14:59 | XMS_ITS | Encounter Summary ---
:1935 Author Organization [facility] Address [address] [place] [address] Care Team Providers Name Role Phone Unavailable Primary Care Provider Unavailable Encounter Details Date Type Department Care Team Description 12/09/2011 Hospital Encounter HX NO MAPPING Eric Gaffney M.D. [address] [place], [place] [phone] (Wo rk) Social History Tobacco Use Types Packs/Day Years Used Date Smoking Tobacco: Never Assessed Sex Assigned at Date Recorded Not on file documented as of this encounter Plan of Treatment Not on filedocumented as of this encounter Procedures Procedure Name Priority Date/Time Associated Diagnosis Comme nts US KIDNEYS Routine 12/09/2011 1:13 PM Results f or this BILATERAL WITH CDT procedure are in BLADDER the results section. documented in this encounter Results US Retroperitoneum Kidney Bilateral (12/09/2011 1:13 PM CDT) Anatomical Region Laterality Modality Abdomen, Renal Bilateral Ultrasound Specimen (Source) Anatomical Collection Method Collection Time Re ceived Time Location / / Volume Laterality 12/09/2011 1:13 PM CDT Addenda Addendum by Provider, Kelechi Rosario 12/09/2011 1:13 PM CDT RAD^^^MA US Renal Bilat 12/09/2011 13:13:00 Impressions 12/09/2011 1:39 PM CDT 1. Normal size right kidney with increas ed cortical echogenicity consistent renal medical disease. Multip le peripelvic renal cysts versus old dilatation of the intrarenal calyces. 2. Small left kidney with marked cortica l thinning and increased echogenicity consistent with advanced re nal medical disease. 3. Normal-appearing bladder with small p ost void residual. Narrative 12/09/2011 1:39 PM CDT EXAM: US Renal Bilat INDICATION: CHRONIC RENAL FAILURE, HX OF NEPHROLITHIASIS COMPARISON: None. FINDINGS: The kidneys are normal in posi tion. The right kidney is normal in size measuring 10.6 cm in arabella th and there is normal cortical thickness although the echogeni city of the cortex appears to be increased and similar to the liver co nsistent with some chronic renal medical disease. There are either multiple peripelvic renal cysts or some mild Z. there dilatation o f the intrarenal calyces, possibly from old obstruction, but the r enal pelvis is not dilated to suggest hydronephrosis at the present ti me. The left kidney is small with cortical thinning and markedly incr eased echogenicity consistent with chronic advanced renal medical dise ase. No suspicious renal masses or hydronephrosis or nephrolithia sis is identified in either kidney. The bladder is well distended wi th a calculated volume of 307 cc. There is a very small post void resi dual calculated at 7.6 cc. Procedure Note Brain Griffin Jr., M.D. / Abraham See M.D. - 09/03/2016 EXAM: US Renal Bilat INDICATION: CHRONIC RENAL FAILURE, HX OF NEPHROLITHIASIS COMPARISON: None. FINDINGS: The kidneys are normal in posi tion. The right kidney is normal in size measuring 10.6 cm in arabella th and there is normal cortical thickness although the echogeni city of the cortex appears to be increased and similar to the liver co nsistent with some chronic renal medical disease. There are either multiple peripelvic renal cysts or some mild Z. there dilatation o f the intrarenal calyces, possibly from old obstruction, but the r enal pelvis is not dilated to suggest hydronephrosis at the present ti me. The left kidney is small with cortical thinning and markedly incr eased echogenicity consistent with chronic advanced renal medical dise ase. No suspicious renal masses or hydronephrosis or nephrolithia sis is identified in either kidney. The bladder is well distended wi th a calculated volume of 307 cc. There is a very small post void resi dual calculated at 7.6 cc. IMPRESSION: 1. Normal size right kidney with increas ed cortical echogenicity consistent renal medical disease. Multip le peripelvic renal cysts versus old dilatation of the intrarenal calyces. 2. Small left kidney with marked cortica l thinning and increased echogenicity consistent with advanced re nal medical disease. 3. Normal-appearing bladder with small p ost void residual. Ashley Hernandez R.V.T., PauletteS. IMG US PROCEDURES documented in this encounter Visit Diagnoses Not on filedocumented in this encounter
--- OUTSIDE RECORDS SUMMARY | 2022-01-19 14:59 | XMS_ITS | Encounter Summary ---
:1935 Author Organization [facility] Address [address] [place] [address] Care Team Providers Name Role Phone Unavailable Primary Care Provider Unavailable Encounter Details Date Type Department Care Team Description 02/28/2013 Hospital Encounter HX [facility] Vinnie Aguilar Jr., M.D. [address] [place], [place] [phone] (Wo rk) Social History Tobacco Use Types Packs/Day Years Used Date Smoking Tobacco: Never Assessed Sex Assigned at Date Recorded Not on file documented as of this encounter Plan of Treatment Not on filedocumented as of this encounter Procedures Procedure Name Priority Date/Time Associated Diagnosis Comme nts BI BREAST SCREENING Routine 02/28/2013 2:00 PM Re sults for this BILATERAL FUSING MACHINE FEEDER procedure are i n the results section. documented in this encounter Results BI Breast Screening Bilateral (02/28/2013 2:00 PM FUSING MACHINE FEEDER) Anatomical Region Laterality Modality Breast Bilateral Mammography Specimen (Source) Anatomical Collection Method Collection Time Re ceived Time Location / / Volume Laterality 02/28/2013 2:00 PM FUSING MACHINE FEEDER Addenda Addendum by Provider, Kelechi Rosario o n 02/28/2013 2:00 PM FUSING MACHINE FEEDER RAD^^^LUIZ MA Mammo Screening w/ CADD 02/28/2013 14:00:00 Impressions 02/28/2013 2:54 PM FUSING MACHINE FEEDER 1. Stable examination with no mammograph ic evidence of malignancy. 2. Annual screening mammography is recom mended. BIRADS: Code 2, ??Benign Findings BREAST MAMMOGRAPHY-GENERAL OBSERVATION: The false negative rate for mammography is 15 to 20%. It cannot be u sed, therefore, to replace regular physical examination. A normal o r noncontributory mammogram report should also not deter the aggress holli further workup of any suspected palpable masses. Narrative 02/28/2013 2:54 PM FUSING MACHINE FEEDER Bilateral craniocaudal and oblique views of the breasts were obtained digitally, and compared to the patient's prior studies of 02/23/2012 and prior. FINDINGS: The breast parenchyma remains heterogene ously dense with a stable appearance relative to prior studies. Th ere are no new or suspicious grouping of calcifications, dominant nod ules, areas of skin thickening or nipple retraction to sugge st malignancy. Left breast biopsy marker clip. Computer Aided Detection was utilized du ring the interpretation of this exam. Procedure Note Hard, Itz Bolton M.D. / Provider, Lucia watson M.D. - 08/29/2016 Bilateral craniocaudal and oblique views of the breasts were obtained digitally, and compared to the patient's prior studies of 02/23/2012 and prior. FINDINGS: The breast parenchyma remains heterogene ously dense with a stable appearance relative to prior studies. Th ere are no new or suspicious grouping of calcifications, dominant nod ules, areas of skin thickening or nipple retraction to sugge st malignancy. Left breast biopsy marker clip. Computer Aided Detection was utilized du ring the interpretation of this exam. IMPRESSION: 1. Stable examination with no mammograph ic evidence of malignancy. 2. Annual screening mammography is recom mended. BIRADS: Code 2, Benign Findings BREAST MAMMOGRAPHY-GENERAL OBSERVATION: The false negative rate for mammography is 15 to 20%. It cannot be u sed, therefore, to replace regular physical examination. A normal o r noncontributory mammogram report should also not deter the aggress holli further workup of any suspected palpable masses. Jessica Bailey R.T.(R)(CT), R.T.(R)(M) IMG BI PROCEDURES documented in this encounter Visit Diagnoses Not on filedocumented in this encounter
--- OUTSIDE RECORDS SUMMARY | 2022-01-19 14:59 | XMS_ITS | Encounter Summary ---
:1935 Author Organization [facility] Address [address] [place] [address] Care Team Providers Name Role Phone Unavailable Primary Care Provider Unavailable Encounter Details Date Type Department Care Team Description 03/19/2011 Hospital Encounter HX NO MAPPING Vinnie Belle Jr., M.D. [address] [place], [place] [address] (Wo rk) Social History Tobacco Use Types Packs/Day Years Used Date Smoking Tobacco: Never Assessed Sex Assigned at Date Recorded Not on file documented as of this encounter Plan of Treatment Not on filedocumented as of this encounter Procedures Procedure Name Priority Date/Time Associated Diagnosis Comme nts MR LUMBAR SPINE Routine 03/19/2011 8:25 AM Result s for this WITHOUT IV CONTRAST RIGHT OF WAY SUPERVISOR procedur e are in the results section. documented in this encounter Results MR Lumbar Spine without IV Contrast (03/19/2011 8:[address] SUPERVISOR) Anatomical Region Laterality Modality Lumbar Spine N/A Magnetic Resonance Specimen (Source) Anatomical Collection Method Collection Time Re ceived Time Location / / Volume Laterality 03/19/2011 8:[address] SUPERVISOR Addenda Addendum by Provider, Kelechi Rosario 03/19/2011 8:[address] SUPERVISOR RAD^^^MA MR LUMBAR SPINE WO CONTRAST 03/19/2011 08:25:00 Narrative 03/19/2011 10:[address] SUPERVISOR MRI Lumbar Spine without contrast ?? Clinical History: Low back pain ?? Comparison: None ?? Technique: Axial T1, T2, Sagittal T1, T2 , STIR without gadolinium contrast. ?? Findings: The left kidney is markedly at rophic. There are multiple parapelvic cysts in the right kidney. Th e lumbar spine vertebral body height and alignment are preserved. The marrow signal within the lumbosacral spine is within normal limit s. There are discogenic endplate changes at L4-L5 and L5-S1. The tip of the conus medullaris is at L1. ?? L1-2: There is no spinal canal or neural foraminal stenosis. ?? L2-3: There is minimal spinal canal royce l without neural foraminal stenosis. ?? L3-4: There is mild/moderate right neuro foraminal stenosis. There is mild spinal canal stenosis. There is no left neuroforaminal stenosis. ?? L4-5: There is bilateral mild neural for aminal stenosis. There is mild to moderate spinal canal stenosis. ?? L5-S1: There is mild to moderate bilater al neural foraminal stenosis. There is mild spinal canal stenosis. ?? Impression: ADDENDUM: Impression was inadvertently l eft blank when report was signed. The impression of the report is mild degenerative changes, most notable at L4-L5 and L5-S1. Procedure Note Kristopher Morris M.D. / ProviderHarmeet M.D. - 09/04/2016 MRI Lumbar Spine without contrast Clinical History: Low back pain Comparison: None Technique: Axial T1, T2, Sagittal T1, T2 , STIR without gadolinium contrast. Findings: The left kidney is markedly at rophic. There are multiple parapelvic cysts in the right kidney. Th e lumbar spine vertebral body height and alignment are preserved. The marrow signal within the lumbosacral spine is within normal limit s. There are discogenic endplate changes at L4-L5 and L5-S1. The tip of the conus medullaris is at L1. L1-2: There is no spinal canal or neural foraminal stenosis. L2-3: There is minimal spinal canal royce l without neural foraminal stenosis. L3-4: There is mild/moderate right neuro foraminal stenosis. There is mild spinal canal stenosis. There is no left neuroforaminal stenosis. L4-5: There is bilateral mild neural for aminal stenosis. There is mild to moderate spinal canal stenosis. L5-S1: There is mild to moderate bilater al neural foraminal stenosis. There is mild spinal canal stenosis. Impression: ADDENDUM: Impression was inadvertently l eft blank when report was signed. The impression of the report is mild degenerative changes, most notable at L4-L5 and L5-S1. Ashley Hernandez R.V.T., RRobM.S. IMG MRI PROCEDURES documented in this encounter Visit Diagnoses Not on filedocumented in this encounter
--- OUTSIDE RECORDS SUMMARY | 2022-01-19 14:59 | XMS_ITS | Encounter Summary ---
:1935 Author Organization [facility] Address [address] [place] [address] Care Team Providers Name Role Phone Unavailable Primary Care Provider Unavailable Encounter Details Date Type Department Care Team Description 02/20/2011 Hospital Encounter HX NO MAPPING Vinnie Belle Jr., M.D. [address] [place], [place] [phone] (Wo rk) Social History Tobacco Use Types Packs/Day Years Used Date Smoking Tobacco: Never Assessed Sex Assigned at Date Recorded Not on file documented as of this encounter Plan of Treatment Not on filedocumented as of this encounter Procedures Procedure Name Priority Date/Time Associated Diagnosis Comme nts BI BREAST SCREENING Routine 02/20/2011 10:53 AM R esults for this BILATERAL COMPOSITION STONE APPLICATOR procedure are i n the results section. documented in this encounter Results BI Breast Screening Bilateral (02/20/2011 10:53 AM COMPOSITION STONE APPLICATOR) Anatomical Region Laterality Modality Breast Bilateral Mammography Specimen (Source) Anatomical Collection Method Collection Time Re ceived Time Location / / Volume Laterality 02/20/2011 10:53 AM COMPOSITION STONE APPLICATOR Addenda Addendum by Provider, Kelechi Rosario 02/20/2011 10:53 AM COMPOSITION STONE APPLICATOR RAD^^^LUIZ DEE MAMMO SCREENING W CADD 02/20/2011 10:53:00 Impressions 02/20/2011 11:22 AM COMPOSITION STONE APPLICATOR 1. Benign findings only, ACR category 2. 2. I recommend routine yearly mammograms on this patient. ?? BREAST MAMMOGRAPHY - GENERAL OBSERVATION S: ??The false negative rate for mammography is 15-20%. ??It cannot b e used, therefore, to replace the regular physical examination. ??A no rmal or noncontributory mammogram report also should not deter t he aggressive further workup of any suspected palpable masses. ?? ACR Code 2 Narrative 02/20/2011 11:22 AM COMPOSITION STONE APPLICATOR Bilateral craniocaudal and oblique views of the breasts were obtained digitally, and compared to previous stud ies of 01/16/2010 and 01/11/2009. Computer-aided detection was utilized. ?? The breast parenchyma remains predominan tly fatty and fibroglandular in appearance. A tissue clip is again id entified within the upper outer aspect of the left breast from a p revious stereotactic biopsy, with no evidence of interval migration. There are no suspicious calcifications or nodules to suggest mal ignancy. ?? Procedure Note Rahul Silverman M.D. / Provider, Deshaun gavin M.D. - 09/04/2016 Bilateral craniocaudal and oblique views of the breasts were obtained digitally, and compared to previous stud ies of 01/16/2010 and 01/11/2009. Computer-aided detection was utilized. The breast parenchyma remains predominan tly fatty and fibroglandular in appearance. A tissue clip is again id entified within the upper outer aspect of the left breast from a p revious stereotactic biopsy, with no evidence of interval migration. There are no suspicious calcifications or nodules to suggest mal ignancy. IMPRESSION: 1. Benign findings only, ACR category 2. 2. I recommend routine yearly mammograms on this patient. BREAST MAMMOGRAPHY - GENERAL OBSERVATION S: The false negative rate for mammography is 15-20%. It cannot be used, therefore, to replace the regular physical examination. A norm al or noncontributory mammogram report also should not deter t he aggressive further workup of any suspected palpable masses. ACR Code 2 Kendra Villaseñor(Charisma)(CT), R.T.(R) IMG BI PROCEDU RES documented in this encounter Visit Diagnoses Not on filedocumented in this encounter
[2022-01-19 15:00] LABS: Lactate* 1.8 mmol/L (0.5-1.9)
[2022-01-19 15:05] LABS: Basophils Absolute Auto 0.03 K/uL (0.00-0.30); Basophils Percent Auto 0.6 % (0.0-3.0); Eosinophils Absolute Auto 0.02 K/uL (0.00-0.50); Eosinophils Percent Auto 0.4 % (0.0-7.0); Hematocrit 41.6 % (33.0-51.0); Hemoglobin* 13.5 gm/dL (12.0-16.0); Immature Granulocytes Abs Auto 0.02 K/uL (0.00-0.30); Lymphocytes Absolute Auto 1.22 K/uL (0.90-2.90); Lymphocytes Percent Auto 22.8 % (20-44); Mean Corpuscular HGB Conc 33 gm/dL (32-36); Mean Corpuscular Hemoglobin 30 pg (26-34); Mean Corpuscular Volume 91 fL (80-100); Monocytes Percent Auto 8.6 % (0.0-11.0); Neutrophils Absolute Auto 3.61 K/uL (1.7-7.0); Neutrophils Percent Auto 67.2 % (42.0-72.0); Platelet Count* 229 K/uL (140-440); RDW Coefficient of Variation % 14.6 % (11.5-15.5); Red Blood Count 4.55 m/uL (4.00-5.20); White Blood Count* 5.36 K/uL (4.50-11.00)
[2022-01-19 15:08] LABS: Slide Review Reflex No
[2022-01-19 15:19] LABS: Albumin* 3.9 g/dL (3.3-5.0); Chloride* 104 mmol/L (96-114); Potassium* 4.1 mmol/L (3.6-5.1); Sodium* 139 mmol/L (135-149)
[2022-01-19 15:21] LABS: Creatinine* 1.3 mg/dL (0.5-1.5); Est. Creatinine Clearance* 30.58; Estimated Glomerular Filt Rate 40 ml/min
[2022-01-19 15:22] LABS: Alanine Aminotransferase* 18 U/L (4-35); Alkaline Phosphatase* 65 U/L (40-150); Aspartate Amino Transferase* 26 U/L (12-35); Bilirubin Total* 0.4 mg/dL (0.1-1.5); Blood Urea Nitrogen* 17 mg/dL (7-30); Calcium* 9.5 mg/dL (8.4-10.6); Carbon Dioxide* 27 mmol/L (20-32); Glucose* 179 mg/dL (60-115); Lipase* 98 U/L (23-300); Total Protein* 6.7 g/dL (6.0-8.3)
[2022-01-19 15:29] LABS: C Reactive Protein* < 0.5 mg/dL (0.5-1.0)
[2022-01-19 15:31] LABS: NT Pro B Type NatriureticPept* 722 PG/mL (0-450)
[2022-01-19 15:41] LABS: Troponin I* < 0.01 ng/mL (0.01-0.04)
[2022-01-19 15:57] VITALS: BP 179/83; PULSE 71; RESP 16; O2SAT 99
[2022-01-19 15:58] LABS: Appearance Urine Clear (Clear); Bilirubin Urine Negative (Negative); Blood Urine Negative (Negative); Color Urine Yellow (Yellow); Glucose Urine Negative (Negative); Ketones Urine Negative (Negative); Leukocyte Esterase Urine Negative (Negative); Nitrite Urine Negative (Negative); Protein Urine Negative (Negative); Urobilinogen Urine 0.2 (0.2-1.0)
[2022-01-19 16:38] LABS: RBC Urine 0-2 (0-2); WBC Urine 0-2 (0-5)
== END 2022-01-19 16:44 | disposition home or self-care (01) ==
PROVIDERS: Emergency Provider Family Medicine; PCP Family Medicine
DX: M54.9 Dorsalgia, unspecified (principal); M41.9 Scoliosis, unspecified
CPT/HCPCS: 36415; 72070; 80053; 81001; 83605; 83690; 83880; 84484; 85025; 86140; 99284

== ENCOUNTER 2022-02-21 08:57 | Outpatient (CLI) | payer MEDICARE, BC, SELFPAY ==
--- OUTSIDE RECORDS SUMMARY | 2022-02-21 08:59 | XMS_ITS | Encounter Summary ---
:1935 Author Organization [facility] Address [address] [place] [address] Care Team Providers Name Role Phone Barbra Ryder M.D., Vinnie Vasquez Primary Care Provider Reason for Visit Reason Comments Earache ck ears; Left worse than Rig ht; sx's started last noct Encounter Details Date Type Department Care Team Description 02/23/2019 Office Visit Urgent Care, [facility] Vinnie Belle Jr., M.D. [address] [place] [address] Otitis Externa Acute Left (Primary Dx); [place], in [place], Ralf, VICKIE Bowen, C.N.P., D.N.P. [address] [place] [phone] Cerumen Impacted Left [place] [address] [place] [phone] Social History Tobacco Use Types Packs/Day Years Used Date Smoking Tobacco: Former Cigarettes 0 Smokeless Tobacco: Never Sex Assigned at Date Recorded Not on file documented as of this encounter Last Filed Vital Signs Vital Sign Reading Time Taken Comments Blood Pressure 149/63 02/23/2019 10:57 AM ADVERTISING SUPERVISOR Pulse 68 02/23/2019 10:57 AM ADVERTISING SUPERVISOR Temperature 36.3 ??C (97.3 ??F) 02/23/2019 10:57 AM ADVERTISING SUPERVISOR Respiratory Rate 18 02/23/2019 10:57 AM ADVERTISING SUPERVISOR Oxygen Saturation 98% 02/23/2019 10:57 AM ADVERTISING SUPERVISOR Inhaled Oxygen Concentration - - Weight 67.3 kg (148 lb 5.9 oz) 02/23/2019 10:57 AM ADVERTISING SUPERVISOR Height - - Body Mass Index 23.02 11/10/2016 5:05 AM CDT documented in this encounter Patient Instructions Patient InstructionsSaAndrés burgos APRN, C.N.P., Elis.N.P. - 02/23/2019 11:00 AM CST Home care and follow up as discussed. RTISING SUPERVISOR documented in this encounter Progress Notes Andrés [...] adequately hydrated. Respiratory: Effort is easy. Skin: [place], warm, with good turgor. No rash or [...] Thu02/23/2019, Until Thu03/02/2019, Normal Ear lavage by bio medical technician completed with some returns. Patient tolerated procedure [...] Arambula APRN, C.N.P., D.N.P. 02/23/19 12:12 PM RTISING SUPERVISOR documented in this encounter Plan of Treatment Not on filedocumented as of this encounter Visit Diagnoses Diagnosis Otitis Externa Acute Left - Primary Cerumen Impacted Left documented in this encounter Administered Medications Inactive Administered Medications - up to 3 most recent administrations Medication Order MAR Action Action Date Dose Rate Site carbamide peroxide 6.5 % otic Given 02/23/2019 11:29 AM ADVERTISING SUPERVISOR 10 d rops solution 10 drop (DEBROX) 10 drop, left ear, Once, On Thu02/23/19 at 1115, For 1 dose documented in this encounter Care Teams Dentures Lab Technician Relationship Specialty Start Date End Date Vinine Belle Jr., M.D. PCP - General 09/25/16 02/24/19 [address] [place] [address] documented as of this encounter
--- OUTSIDE RECORDS SUMMARY | 2022-02-21 08:59 | XMS_ITS | Clinical Summary ---
:1935 Author Organization [facility] [place] [address] Care Team Providers Name Role Phone Tito Jackson MD Primary Care Provider Allergies Active Allergy Reactions Severity Noted Date Comments Iron Rash 08/25/2016 Sulfamethoxazole-Trimethoprim Rash 11/14/2014 Medications Medication Sig Dispensed Refills Start Date End Date Status cholecalciferol (VITAMIN Take 1 capsule 0 11/14/2014 Active D) 1,000 unit capsule by mouth once daily. geriatric Take 1 tablet by 0 01/30/2015 Ac tive wvcvjfzbyppk-jxca-gfwgnb mouth once ls (GERITOL; CENTRUM daily. SILVER) [...] solution Active Problems No known active problems Social History Tobacco Use Types Packs/Day Years [...] 10/02/2022 Office Visit Maria Dent MD [address] [facility] [address] [place] [address] [phone] [...] COVID-19 vaccine series (3 - Booster for 08/04/2020 021, 05/19/2020 Pfizer series) Influenza for age 65+ 12/12/2021 Results Not on filefrom Last 3 Months Insurance Payer Benefit Plan / Subscriber ID Effective Dates Phone Addre ss Type Group MEDICARE PART B MEDICARE PART B [id number] 2001-Presjai ATTN: CLAIMS - HB USE ONLY HB ONLY t [address] [place] [address] BLUE CROSS BLUE CROSS [id number] 2014-Presen [place] [address] [address] [place] [id number] BLUE CROSS MR BLUE CROSS [id number] 2017-Presen [address] [address] [place] [id number] Care Teams Biofuels Processing Technician Relationship Specialty Start Date End Date Tito Jackson MD PCP - General Family Practice 08/14/[address] [place] [address] [place] [address]
--- OUTSIDE RECORDS SUMMARY | 2022-02-21 08:59 | XMS_ITS | Encounter Summary ---
:1935 Author Organization [facility] Address [address] [place] [address] Care Team Providers Name Role Phone Barbra Ryder M.D., Vinnie Vasquez Primary Care Provider Encounter Details Date Type Department Care Team Description 02/22/2018 Hospital Encounter Department of Vinnie Belle Mammogram Radiology in Jelani Ryder M.D. Breast Cancer [place], [place] [address] [place] [phone] Social History Tobacco Use Types Packs/Day Years Used Date Smoking Tobacco: Former Sex Assigned at Date Recorded Not on file documented as of this encounter Medications at Time of Discharge Medication Sig Dispensed Refills Start Date End Date cholecalciferol (VITAMIN Take 1,000 Units by 0 D3) 1,000 Unit capsule mouth daily. geriatric Take 1 tablet by 0 01/30/2015 zxfbirae-tqen-eges tablet mouth daily. simvastatin (ZOCOR) 10 mg [...] ults for BILATERAL WITH (most inpatients AM AUTOMATION QA ANALYST Mammogram Breast this procedure TOMOSYNTHESIS and all Cancer are in the outpatients) results section. documented in this encounter Results BI Breast Screening Bilateral with Tomosynthesis (02/22/2018 10:48 AM AUTOMATION QA ANALYST) Anatomical Region Laterality Modality Breast, Breast Imaging RST LOS, Breast Imaging ARZ LOS, Donovan st Bilateral Mammography Imaging FLA LOS Specimen (Source) Anatomical Collection Method Collection Time Re ceived Time Location / / Volume Laterality 02/22/2018 11:35 AM AUTOMATION QA ANALYST Impressions 02/22/2018 11:37 AM AUTOMATION QA ANALYST IMPRESSION: ??Negative. RECOMMENDATION: ??Annual Screening Mammo gram ASSESSMENT: ??BI-RADS: 1: Negative. Narrative 02/22/2018 11:37 AM AUTOMATION QA ANALYST EXAM: ??BI BREAST SCREENING BILATERAL WITH TOMOSYNTHESIS [...] Cancer documented in this encounter Care Teams Recordings Librarian Relationship Specialty Start Date End Date Vinnie Belle Jr., M.D. PCP - General 09/25/16 02/24/[address] [place] [address] documented as of this encounter
--- OUTSIDE RECORDS SUMMARY | 2022-02-21 08:59 | XMS_ITS | Encounter Summary ---
:1935 Author Organization [facility] Address [address] [place] [address] Care Team Providers Name Role Phone Unavailable [...] Department Care Team Description 07/22/2020 - Emergency [place] [facility] BhavinfoMercedez reno Chest (Primary Dx); 07/23/2020 Department D, M.D. Presyncope; [address] [place] [phone] Social History Tobacco Use Types Packs/Day Years Used Date Smoking Tobacco: Former Cigarettes 0 Quit : 07/23/1990 Smokeless Tobacco: Never Alcohol Use Standard Drinks/Week Comments Not Currently 0 (1 standard drink = 0.6 oz pure alcoho l) Quit 30-35 years ago Sex Assigned at Date Recorded Not on [...] geriatric Take 1 tablet by 0 01/30/2015 rqxkfmsh-ackn-zvju tablet mouth daily. raloxifene (EVISTA) 60 mg [...] Serra M.D. - 07/22/2020 10:25 PM CDT [facility] EM[facility]GENCY DEPARTMENT ENCOUNTER Patient Name: [...] gen CANCELED Narrative: Specimen Information: Specimen ID: [id number] Specimen Type: Blood Specimen Collection Start Date: 07/22/2020 11:13 PM Specimen Received Date: 07/22/2020 11:23 PM Specimen ID: [id number] Specimen Type: Blood RADIOLOGY: DX Chest AP [...] patient is agreeable for transferand family prefers [facility]. ED Course as of Jul 23 356 Sun Jul 22, [id number] Prior are similar, patient with only one kidney and follow with renal Creatinine, P(!): 1.31 2236 Call placed to [facility] 2300 Accepted to [facility] by Dr Garcia Mon Jul 23, 2020 [...] limited historian make her higher risk. 0230 [facility] unfortunately has added a delay in getting a bed. Calls placed to [facility] as an alternative option [phone] [address]ed to [facility] by Dr Morse [phone] Initial was 9, 2 hr 10, now 6 hr 11. likely normal variation in the setting of her kidney disease. No pain. Troponin T, 5th gen(!): 11 Final Diagnoses: as of Jul 23 356 Pain Chest Presyncope Bundle Branch Block Left DISPOSITION/PLAN: [facility] DISCHARGE MEDICATIONS: New Prescriptions No medications on file Mercedez Serra M.D. 07/23/20242 Mercedez Serra M.D. 07/23/20247 Mercedez Serra M.D. 07/23/20356 documented in this encounter Plan of Treatment [...] supplements. ??If the result does not [facility] clinical observations, repeat testing after patient refrains fr om the use of supplements for at least 12 hours. Specimen Anatomical Collection Method Collection Time Receive d Time (Source) Location / / Volume Laterality Blood (Blood, 07/23/2020 3:29 AM 07/24/19 21 3:39 Venous) CDT AM CDT Mercedez Serra M.D. LAB BLOOD ADD-ON Performing Organization Address City/State/ZIP Code Phon e Number [place] [address] [address] [facility] [place] [address] [place] [address] SARS Coronavirus 2, PCR Rapid, V Symptomatic (07/22/2020 11:14 PM CDT) Patholo gist Method Time Signature SARS CoV-2, Undetected Undetected 07/22/2020 [facility] PCR, Rapid, V 11:43 PM CDT Comment: ----ADDITIONAL INFORMATION---- This RT-PCR test was performed using the Ralph SARS-CoV-2 and Influenza A/B Reagent assay from [employer], which has received Emergency Use Authori zation(EUA) by the U.S. Food and Drug Administration . Fact sheets for this Emergency Use Autho rization (EUA) assay can be found at the following link s: For Healthcare Providers: https://www.fda.gov/media/669238/downloa d For Patients: https://www.fda.gov/media/809460/downloa d SARS Coronavirus 2, Source, Swab, Nasopharynx 07/12 11:19 PM CDT [facility] Rapid Specimen Anatomical Collection Method Collection Time Receive d Time (Source) Location / / Volume Laterality Varies 07/22/2020 11:14 07/22/2020 (Nasopharynx) PM CDT 11:19 PM CDT Mercedez Serra M.D. LAB MICROBIOLOGY - GENERAL O MYRON Performing Organization Address City/[facility]/ZIP Code Phon e Number [place] [address] [address] [facility] [place] [address] [place] [address] Troponin T, 2H/6H, 5th Gen (07/22/2020 11:13 PM CDT) P athologist Signature Troponin T, 2 10 <=10 ng/L 07/22/2020 [facility] hr, 5th gen 11:38 PM CDT Comment: Biotin has been identified by the ellyn galvan as a potential interfering substance. ??Higher concentr ations of biotin may be found in multivitamins, hair/nail supple ments, and workout supplements. ??If the result does not ma tch clinical observations, repeat testing after patient refrains [...] PM CDT 11:23 PM CDT Narrative [facility] - 07/22/2020 11:38 PM CDT Specimen Information: Specimen ID: [id number] Specimen Type: Blood Specimen Collection Start Date: 07/23/19 11:13 PM Specimen Received Date: 07/22/2020 11:23 PM Specimen ID: [id number] Specimen Type: Blood Mercedez Serra M.D. LAB BLOOD TROPONIN Performing Organization Address City/State/ZIP Code Phon e Number [address] [place] [address] [place] [address] [place] [address] [address] [place] DX Chest AP or PA and Lateral [...] Mercedez Serra M.D. IMG DIAGNOSTIC IMAGING PROCE DERRICKES Troponin T, Baseline, 5th gen (07/22/2020 9:10 PM CDT) P athologist Signature Troponin T, 9 <=10 ng/L 07/22/2020 [facility] Baseline, 5th 9:40 PM CDT gen Comment: Biotin has been identified by the ellyn robertsonr as a potential interfering substance. ??Higher concentr ations of biotin may be found in multivitamins, hair/nail supple ments, and workout supplements. ??If the result does not [facility] clinical observations, repeat testing after patient refrains fr om the use of supplements for at least 12 hours. Specimen Anatomical Collection Method Collection Time Receive d Time (Source) Location / / Volume Laterality Blood (Blood, 07/22/2020 9:10 PM 07/23/19 21 9:17 Venous) CDT PM CDT Mercedez Serra M.D. LAB BLOOD TROPONIN Performing Organization Address City/State/ZIP Code Phon e Number [facility] [address] [place], [place] [address] [place] [address] [facility] [address] (ABNORMAL) Basic [...] eGFR-Black/Afri 43 (L) >=60 07/22/2020 [facility] can [place] mL/min/BSA 9:35 PM CDT Comment: ----ADDITIONAL INFORMATION---- Estimated GFR calculated using the 2009 CKD_EPI creatinine equation. eGFR Non-Black/ 38 (L) >=60 mL/min/BSA 07/22/2020 9:35 PM CDT [facility] [place] Comment: ----ADDITIONAL INFORMATION---- Estimated GFR calculated using [...] Organization Address City/State/ZIP Code Phon e Number [facility]- [address] [place], [place] [address] [place] [address] CBC with Differential, Blood (07/22/2020 9:10 PM CDT) athologist Signature Hemoglobin 12.7 11.6 - 07/22/2020 [...] Organization Address City/State/ZIP Code Phon e Number [facility]- [address] [place], [place] [address] [place] [address] [facility] [address] ECG 12 Lead (07/22/2020 9:07 PM CDT) P athologist Signature Ventricular Rate 75 BPM MUSE ECG/Min AK Interval 162 ms MUSE QRSD Interval 142 ms MUSE QT Interval 432 ms MUSE QTC Interval 482 ms MUSE P Hindman 40 degrees MUSE R Hindman 36 degrees MUSE T Wave Hindman 36 degrees MUSE Specimen Anatomical Collection Method [...] Address City/State/ZIP Code Phon e Number MUSE FABY NA documented in this encounter Visit Diagnoses [...] line care, Starting on 07/22/20 at 2102, Peripheral Intravenous Catheter and Rapid Infusion Cat heter, prior to blood sampling, post blood transfusion or post blood samplin g sodium chloride 0.9 % injection 10 mL 10 mL, intravenous, As needed, line care, Starting on 07/22/20 at 2105, Peripheral Intravenous Catheter and Rapid Infusion Cat heter, prior to blood sampling, post blood transfusion or post blood samplin g sodium chloride 0.9 % injection 3 mL 3 mL, intravenous, As needed, line care, Starting on Thu07/22/20 at 2102, Prior to and following infusion [...] needed, line care, Starting on Thu07/22/20 at 2105, Prior to and following infusion [...] Martinez R.N.) 324 mg, oral, Once, On Thu07/22/20 at 2121, For 1 dose sodium chloride [...] As needed, line care , Starting on Thu07/22/20 at 2102, Peripheral Intravenous Catheter and Rapid Infusion Catheter, prior to blood sampling, post blood transfusion or post blood sampling sodium chloride 0.9 % injection 10 mL 10 mL, intravenous, As needed, line care , Starting on Thu07/22/20 at 2105, Peripheral Intravenous Catheter and Rapid [...]
--- OUTSIDE RECORDS SUMMARY | 2022-02-21 08:59 | XMS_ITS | Encounter Summary ---
:1935 Author Organization [facility] Address [address] [place] [address] Care Team Providers Name Role Phone Unavailable Primary Care Provider Unavailable Reason for Referral Outpatient (Routine) - Closed Specialty Diagnoses / Procedures Referred By Contact Refer red To Contact Diagnoses Pain Chest Atypical Joleen Harry M.D. [address] [place] [phone] Referral ID Status Reason Start Date Expiration Visits Visits Date Requested Authorized [id number] Closed Continuity of 07/23/2020 07/23/2021 1 1 Care Reason for Visit Auth/Cert Specialty Diagnoses / Procedures Referred By Contact Refer red To Contact Diagnoses Presyncope Chest Pain Procedures Referral ID Status Reason Start Date Expiration Date Visits Requ ested Visits Authorized [id number] 1 1 Encounter Details Date Type Department Care Team Description 07/23/2020 Hospital Encounter [facility] Becca Zepeda M.D. [address] [place] [address] [phone] Presyncope (Primary Dx); [facility] Sapphire De La Cruz M.D. [address] [place] [phone] Pain Chest Atypical [facility] Joleen Harry M.D. [address] [place] [address] [phone] Floor [address] [place] [phone] Social History Tobacco Use Types Packs/Day Years [...] had presented to the emergency room in [place] secondary to not feeling, bilateral shoulder pain, [...] given aspirin 324 mg and transferred to [place] for further workup. Following transfer to [place] cardiology was consulted. She also had an [...] Take 1,000 Units by mouth daily. geriatric bnimnqvq-fpfx-dezz tablet Take 1 tablet by mouth daily. [...] Care Everywhere.Deep Vein Thrombosis and Pulmonary Embolism (Dominican)documented in this encounter Medications at Time of [...] geriatric Take 1 tablet by 0 01/30/2015 rxvyqlar-oczb-oque tablet mouth daily. raloxifene (EVISTA) 60 mg [...] who presented to the Emergency Department in [place] with complaints of feeling unwell. She had been to her daughter's house and had lunch, stayed late to watch the Twins lose, then went back to her townhouse in [place]. As she was getting ready for bed [...] specific workup. In the Emergency Department in [place] physical examination was unremarkable. Her symptoms had resolved prior to arrival. Laboratory work was relatively unremarkable. Troponins were negative. Chest x-ray similarly so. But her EKG appeared to show a new left bundle branch block. As a result, it was requested that she be transferred to [place] for further evaluation and possible echocardiogram. MEDICAL HISTORY Mrs. Nuñez' past medical history is remarkable for hypertension, mild hyperlipidemia, and nephrolithiasis. In fact, in 2014 she had an obstructed left ureter, developed [...] She resides independently in a townhouse in [place]. There are stairs to the basement that [...] clubbing, or edema. DIAGNOSTICS Laboratory work from [place] remarkable for sodium and potassium of 139 [...] The patient will be placed on the [facility] Medical Team for the balance of her hospital stay. Initial hospitalization level 3. Greater than 75 minutes, greater than 50% of which encompassed by counseling, coordination of care, and review of all records. Daryl Zepeda M.D. CT CT Job ID: [id number] documented in this encounter Consult Notes Mukund [...] No chest pain. She went to the [place] ED where her troponins were 11 and [...] branch block Duration unknown but new since 2015. Normal LVEF. Denies syncope/lightheadedness. 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 Yesterday she had [...] decided to sit down in a chair. Maylin sat on the chair things did not [...] felt that this should be evaluated by pharm spec and therefore were going to transfer her. Thefamily wished to go to [facility] however [facility] did not have beds available so she was transferred to [facility]. At this point she still complain of [...] 2014 PAST CARDIAC TESTING TTE 12/02/2011 at [facility] for murmur and edema (WT 146lb) [...] mouth daily. 07/20/20 Yes Provider, Historical geriatric sgngoxsk-lpvd-enkm tablet Take 1 tablet by mouth daily. [...] of her COVID vaccinations which with the [employer] 1st was on June 17 and 2nd [...] Ref Range Ventricular Rate ECG/Min 81 BPM WI Interval 208 ms QRSD Interval 138 ms QT Interval 410 ms QTC Interval 476 ms P [place] 61 degrees R [place] 26 degrees T Wave [place] 62 degrees DIAGNOSTIC TESTS CHEST XRAY IMPRESSION: [...] care was discussed with Dr. Mukund Taylor, [facility] Outreach Pharmacovigilance Scientist who expressed understanding and agreement to the [...] DISCHARGE Wheelchair TRANSPORTATION Private Vehicle ACCOMPANIED BY CFD ENGINEER and Family: Daughter All belongings sent home [...] HR 82, RR 14, O2 98% ra. IALT Maria Renee R.N. - 07/23/2020 6:46 AM CDT Patient admitted from [place] ED about 0530. Patient presented to [place] ED due to not feeling well as [...] Order S [facility] External referral Outpatient Referral Routine Pain Chest Atypi sanford Ordered: physician 07/23/2020 (non-Gomez) documented as of this encounter Procedures Procedure [...] Signature Ventricular Rate 77 BPM MUSE ECG/Min WI Interval 180 ms MUSE QRSD Interval 126 ms MUSE QT Interval 400 ms MUSE QTC Interval 452 ms MUSE P [place] 34 degrees MUSE R [place] 14 degrees MUSE T Wave [place] 62 degrees MUSE Specimen Anatomical Collection Method Collection Time Receive d Time (Source) Location / / Volume Laterality 07/23/2020 6:43 PM 6:56 CDT PM CDT Impressions MUSE - 07/23/2020 6:56 PM CDT Normal sinus rhythm Left bundle branch block with secondary ST-T abnormalities When compared with ECG of 23-JUL-2020 07 :14, WI interval has decreased Reviewed by SHEA Montanez Narrative This result has an attachment that is no t available. Procedure Note Aly Munoz M.D. - 07/23/2020Forma tting of this note might be different from the original. IMPRESSION: Normal sinus rhythm Left bundle branch block with secondary ST-T abnormalities When compared with ECG of 23-JUL-2020 07 :14, WI interval has decreased Reviewed by SHEA Montanez [...] Evidence of prior granulomatous disea se. Joleen Harry M.D. IMG CT PROCEDURES US Lower Extremity Veins Bilateral [...] eGFR-Black/Afri 52 (L) >=60 07/23/2020 MKTO can Trinidadian mL/min/BSA 12:05 PM CDT Comment: ----ADDITIONAL INFORMATION---- Estimated GFR calculated using the 2009 CKD_EPI creatinine equation. eGFR Non-Black/ 45 (L) >=60 mL/min/BSA 07/23/2020 12:05 PM CDT MKTO Trinidadian Comment: ----ADDITIONAL INFORMATION---- Estimated GFR calculated using [...] Organization Address City/State/ZIP Code Phon e Number - [address] [place] [address] [place] [address] (TTE) 2D ECHO DOPPLER COLOR (07/23/2020 10:54 AM CDT) [facility] Method Time Signature Ejection Fraction 56 MC [...] EIMS Dimensionless Index LA Volume Index 32 CV EIMS Anatomical Region Laterality Modality Echocardiography [...] effusion. For the complete report, see the [facility] Documents. Narrative 07/23/2020 12:55 PM CDT For the complete report, see the [facility] Documents. Final Impressions 1. Normal left ventricular [...] tation. 7. No previous studies available for [employer]. Procedure Note Maggie Arceo M.D. - 07/23/2020Forma tting of this note might be different from the original. For the complete report, see the Order-L evel Documents. Final Impressions 1. Normal left ventricular [...] tation. 7. No previous studies available for [employer]. Findings Bedside echo performed. LEFT VENTRICLE: Normal [...] report, see the Order-L evel Documents. Daryl Zepeda M.D. CV ECHO PROCEDURES ECG 12 Lead (07/23/2020 7:14 AM CDT) P athologist Signature Ventricular Rate 81 BPM MUSE ECG/Min WI Interval 208 ms MUSE QRSD Interval 138 ms MUSE QT Interval 410 ms MUSE QTC Interval 476 ms MUSE P [place] 61 degrees MUSE R [place] 26 degrees MUSE T Wave [place] 62 degrees MUSE Specimen Anatomical Collection Method Collection Time Receive d Time (Source) Location / / Volume Laterality 07/23/2020 7:14 AM 8:06 CDT AM CDT Impressions MUSE - 07/23/2020 7:24 AM CDT Normal sinus rhythm with 1st degree A-V block Left bundle branch block T wave abnormality, consider lateral isc hemia When compared with ECG of 22-JUL-2020 21 :07, WI interval has increased Reviewed by SHEA Lilly Narrative This result has an attachment that is no t available. Procedure Note Jason Doan M.D. - 07/23/2020Formatt ing of this note might be different from the original. IMPRESSION: Normal sinus rhythm with 1st degree A-V block Left bundle branch block T wave abnormality, consider lateral isc hemia When compared with ECG of 22-JUL-2020 21 :07, WI interval has increased Reviewed by SHEA Lilly Daryl Zepeda M.D. ECG ORDERABLES Performing Organization Address City/State/ZIP Code Phon e Number MUSE MUSE NA ECG MONITOR RECORD (07/23/2020 6:45 AM CDT) Narrative 07/23/2020 6:45 AM CDT This result has an attachment that is no t available. Ordered by an unspecified provider. Default Authenticator Lawrence ECG ORDERABLES documented in this encounter Visit Diagnoses Diagnosis Presyncope - Primary Presyncope Pain Chest Atypical documented in this encounter [...]
--- OUTSIDE RECORDS SUMMARY | 2022-02-21 08:59 | XMS_ITS | Encounter Summary ---
:1935 Author Organization [facility] Address [address], [place] [address] Care Team Providers Name Role Phone Unavailable Primary Care Provider Unavailable Reason for Visit Reason Comments HEARING LOSS Hearing Aid Encounter Details Date Type Department Care Team Description 02/13/2021 Office Visit [facility] Jeanne, Bilateral sensorineural [id number] [address] Dill hearing loss (Primary [place], [place] [address] [facility]) [phone] [facility] [phone] [place] [address] Social History Tobacco Use Types Packs/Day Years Used Date Smoking Tobacco: Never Assessed Sex Assigned at Date Recorded Not on file documented as of this encounter Progress Notes Leatha Angel AU.D. - 02/13/2021 4:30 PM CDT Hearing Evaluation and Hearing Aid Review Subjective: Karoline Nuñez, 85 y.o., was seen for an audiological evaluation upon order from Surjit Chan MD at [facility]. She was accompanied to the appointment by her daughters. She hasnot been seen previously for a hearing evaluation at [facility], but [facility] [place]. Audiogram indicates sensorineural hearing loss, although poor original copy to see all frequencies. They come in today to discuss options for her hearing and hearing aids. They are very frustrated by how she has been hearing over the past 3-12 months. Her hearing aids don't seem to be helping her enough. She has gone to [facility] where they are told the hearing aids are working, and she has had to have the lump receiver wires replaced multiple times because they were [...] of the conversation often. Previous audiogram at [facility] indicates word recognition completed with only [...] copied from outside audiogram on 01/16/2021. Speech repairer helper thresholds were obtained at 70 dBHL for [...] 8000 Hz. These results were uploaded into [employer]. Assessment: Communicatively significant moderate to severe sensorineural hearing loss, bilaterally. Speech repairer helper thresholds were in good agreement with the [...] what is causing her to have broken lump receiver wires on occasion. Patient practiced, but she [...]
--- OUTSIDE RECORDS SUMMARY | 2022-02-21 08:59 | XMS_ITS | Encounter Summary ---
:1935 Author Organization [facility] Address [address] [place] [address] Care Team Providers Name Role Phone Unavailable Primary Care Provider Unavailable Encounter Details Date Type Department Care Team Description 03/14/2021 Clinical Communication Urgent Care, Hospital [facility], in [place], [place] [address] [place] [phone] Social History Tobacco Use Types Packs/Day Years [...] LABORATORY CONFIRMED case ofCOVID-19?: Yes exposure noted. [place] patient, instruct to quarantine, testing indicated (End Screening) Plan: Endpoint recommendation: Testing indicated, advised to be swabbed for COVID-19 Only , sent to [facility]: An appointment is needed for testing. Call [phone] during the hours of Mon-Fri 8 am [...] sending patient for testing in [facility] or [facility], route encounter to the correct testing pool. NING TECHNOLOGIST documented in this encounter Plan of Treatment Not on filedocumented as of this encounter Visit Diagnoses Not on filedocumented in this encounter Additional Health Concerns Infection Onset Date Last Indicated Resolved Time COVID19 Pending 03/15/2021 03/15/2021 03/16/2021 12:41 AM LEARNING TECHNOLOGIST documented as of this encounter
--- OUTSIDE RECORDS SUMMARY | 2022-02-21 08:59 | XMS_ITS | Clinical Summary ---
:1935 Author Organization [facility] Address [address] [place] [address] Care Team Providers Name Role Phone Unavailable Primary Care Provider Unavailable Source Comments Patient records contain information from all sites at [facility]. For routine questions regarding patient records, call [phone] during business hours, M-F 8:00 AM - 5:00 PM Central Time. Record requests for emergency care only can be directed to [phone] at any time.[facility] Allergies Active Allergy Reactions Severity Noted [...] 1 tablet by 0 01/30/2015 Ac tive buajlilt-uwbx-bafq mouth daily. tablet amLODIPine (NORVASC) Take 1.25 [...] years) 01/09/2018 01/09/2017, , (2 - PPSV23 if available, else 02/07/2014 PCV20) Fall Risk Screen (Annual) 04/13/2021 COVID-19 Vaccine (4 - Booster for 12/23/2021 10/28/2021, , Pfizer series) 05/19/2020 Influenza Vaccine (#1) 2022 01/22/2021, 01/27/2019, 01/19/2018, Additional history exists DTaP,Tdap,and Td Vaccines (3 - Td 08/13/2028 08/13/2018, or Tdap) Insurance Payer Benefit Plan Subscriber ID Effective Phone Address Typ e / Group Dates MEDICARE MEDICARE A [id number] 2001-Pres [address] [place] [address] BLUE CROSS BCBS [place] [id number] 2016-Pres [phone] PO PRICILA X Cost Share BLUE SHIELD BLUE COST ent [phone] [place] [phone] Advance Directives For more information, please contact: [phone] Latest Code Status on File Code Status Date Activated Date Inactivated Comments Full Code 07/23/2020 6:09 AM 07/23/2020 9:41 PM Question Answer Comments Full Code: Discussed
--- OUTSIDE RECORDS SUMMARY | 2022-02-21 08:59 | XMS_ITS | Encounter Summary ---
:1935 Author Organization [facility] Address [address] [place] [address] Care Team Providers Name Role Phone Unavailable Primary Care Provider Unavailable Reason for Visit Outpatient (Routine) - Modified Order Specialty Diagnoses / Procedures Referred By Contact Refer red To Contact Diagnoses Screening Mammogram Average Risk Patient Lizbeth Moe APRN, [facility] Region Procedures BI Breast Screening Bilateral with Tomosynthesis BI Breast Screening Bilateral C.N.P., M.S.N. [address] [place] [phone] Referral ID Status Reason Start Date Expiration Date Visits V isits Requested Authorized [id number] Modified 02/09/2020 02/08/2021 1 1 Order Encounter Details Date Type Department Care Team Description 03/22/2020 Hospital Encounter Department of Lizbeth Moe ng Mammogram Radiology in [place] Terrell APRN, [facility] Ris k Patient [place], [place] C.N.P., M.S.N. [address] [place] [phone] Social History Tobacco Use Types Packs/Day [...] geriatric Take 1 tablet by 0 01/30/2015 xfwdzeiv-ermu-efhl tablet mouth daily. raloxifene (EVISTA) 60 mg [...] lts for BILATERAL WITH (most inpatients AM FLASHER ADJUSTER Mammogram Average this procedure TOMOSYNTHESIS and all Risk Patient are in the outpatients) results section. documented in this encounter Results BI Breast Screening Bilateral with Tomosynthesis (03/22/2020 9:45 AM FLASHER ADJUSTER) Anatomical Region Laterality Modality Breast, Breast Imaging RST LOS, Breast Imaging ARZ LOS, [address]en st Bilateral Mammography Imaging FLA LOS Specimen (Source) Anatomical Collection Method Collection Time Re ceived Time Location / / Volume Laterality 03/22/2020 1:14 PM FLASHER ADJUSTER Impressions 03/22/2020 1:17 PM FLASHER ADJUSTER Benign. RECOMMENDATION: ??Annual Screening Mammo gram ASSESSMENT: ??BI-RADS: 2: Benign. Narrative 03/22/2020 1:17 PM FLASHER ADJUSTER EXAM: ??BI BREAST SCREENING BILATERAL WITH TOMOSYNTHESIS Current study was evaluated with a [employer] Aided Detection (CAD) system. INDICATION: ??Screening mammogram. [...]
--- OUTSIDE RECORDS SUMMARY | 2022-02-21 08:59 | XMS_ITS | Encounter Summary ---
:1935 Author Organization [facility] Address [address] [place] [address] Care Team Providers Name Role Phone Unavailable Primary Care Provider Unavailable Encounter Details Date Type Department Care Team Description 03/15/2021 Admin Visit Urgent Care, [facility], in [place], [place] [address] [place], [place] [phone] Social History Tobacco Use Types Packs/Day [...] COVID19 Pending 03/15/2021 03/15/2021 03/16/2021 12:41 AM MUSIC CATALOGUER documented as of this encounter
--- OUTSIDE RECORDS SUMMARY | 2022-02-21 08:59 | XMS_ITS | Encounter Summary ---
:1935 Author Organization [facility] Address [address] [place] [address] Care Team Providers Name Role Phone Barbra Ryder M.D., Vinnie Vasquez Primary Care Provider Encounter Details Date Type Department Care Team Description 02/23/2019 Hospital Encounter Department of Vinnie Belle Routine Screening Radiology in [place] Ryder M.D. Breast Exam [place], [place] [address] [place] [phone] Social History Tobacco Use Types Packs/Day Years Used Date Smoking Tobacco: Former Cigarettes 0 Smokeless Tobacco: Never Sex Assigned at Date Recorded Not on file documented as of this encounter Medications at Time of Discharge Medication Sig Dispensed Refills Start Date End Date cholecalciferol (VITAMIN Take 1,000 Units by 0 D3) 1,000 Unit capsule mouth daily. geriatric Take 1 tablet by 0 01/30/2015 yiqhxhxz-dqtv-omvh tablet mouth daily. raloxifene (EVISTA) 60 mg [...] Screening Results for this BILATERAL WITH AM FINAL FINISHER FORGING DIES Breast Exam procedure are in TOMOSYNTHESIS the results section. documented in this encounter Results BI Breast Screening Bilateral with Tomosynthesis (02/23/2019 10:39 AM FINAL FINISHER FORGING DIES) Anatomical Region Laterality Modality Breast, Breast Imaging RST LOS, Breast Imaging ARZ LOS, Carmen st Bilateral Mammography Imaging FLA LOS Specimen (Source) Anatomical Collection Method Collection Time Re ceived Time Location / / Volume Laterality 02/23/2019 11:15 AM FINAL FINISHER FORGING DIES Impressions 02/23/2019 11:17 AM FINAL FINISHER FORGING DIES Negative. RECOMMENDATION: ??Annual Screening Mammo gram ASSESSMENT: ??BI-RADS: 1: Negative. Narrative 02/23/2019 11:17 AM FINAL FINISHER FORGING DIES EXAM: ??BI BREAST SCREENING BILATERAL WITH TOMOSYNTHESIS [...] Exam documented in this encounter Care Teams Parachute Manufacturing Supervisor Relationship Specialty Start Date End Date Vinnie Belle Jr., M.D. PCP - General 09/25/16 02/24/19 [address] [place] [address] documented as of this encounter
--- OUTSIDE RECORDS SUMMARY | 2022-02-21 08:59 | XMS_ITS | Encounter Summary ---
:1935 Author Organization [facility] Address [address] [place] [address] Care Team Providers Name Role Phone Unavailable Primary Care Provider Unavailable Reason for Visit Reason Onset Date Comments Testing For Upper Respiratory Virus Symptoms 03/15/2021 Encounter Details Date Type Department Care Team Description 03/15/2021 External Outreach Department of [facility] Noreen Kimbrough, Contact With And Medicine in [facility] C.N.P., (Suspected) Exposure [place], [place] D.N.P. To COVID-19 (Primary [address] [facility] Dx) [place] [phone] Social History Tobacco Use Types Packs/Day Years [...] Influenza, RSV, and/or Group A Strep testing. MER documented in this encounter Plan of Treatment Not on filedocumented as of this encounter Procedures Procedure Name Priority Date/Time Associated Diagnosis Comme nts SARS CORONAVIRUS-2 Routine 03/15/2021 12:55 PM Contact With An d Results for this RNA, V CHUMMER (Suspected) Exposure procedu re are in To COVID-19 the results section. documented in this encounter Results SARS Coronavirus-2 RNA, V Symptomatic (03/15/2021 12:55 PM CHUMMER) [facility] Method Time Signature SARS-CoV-2 Swab, 03/16/2021 MK[facility] Specimen Nasopharynx 12:40 AM Source CHUMMER SARS CoV-2 Undetected Undetected 03/16/2021 MKTO RNA, TMA 12:40 AM CHUMMER Comment: SARS-CoV-2 RNA absent. This result does not rule out COVID-19 in the patient, as the sensitivity of the test depends o n the timing of the specimen collection and the quality of the specim en. Result should be correlated with patient's history and clinical presentat ion. ----ADDITIONAL INFORMATION---- This molecular amplification test was pe rformed using the Aptima SARS-CoV-2 assay ([employer] on the [employer] tem under emergency use authorization (EUA) by the U.S. Food and Drug Administ ration. Fact sheets for this EUA assay can be fo und at the following links: For Healthcare Providers: https://www.fd a.gov/media/193726/download For Patients: https://www.fda.gov/media/ 855186/download Specimen Anatomical Collection Method Collection Time Receive d Time (Source) Location / / Volume Laterality Varies 03/15/2021 12:55 03/15/2021 6:01 (Nasopharynx) PM CHUMMER PM CHUMMER Noreen Kimbrough APRN C.N.P., D.N.P. LAB MICROBIOLOGY - GENERAL ORDERABLES Performing Organization Address City/State/ZIP Code Phon e Number [facility]- [address] [place] [id number] [place] [address] [place] [address] System [address] documented in this encounter Visit Diagnoses Diagnosis Contact With And (Suspected) Exposure To COVID-19 - Primary documented in this encounter Additional Health Concerns Infection Onset Date Last Indicated Resolved Time COVID19 Pending 03/15/2021 03/15/2021 03/16/2021 12:41 AM CHUMMER documented as of this encounter
--- OUTSIDE RECORDS SUMMARY | 2022-02-21 08:59 | XMS_ITS | Encounter Summary ---
:1935 Author Organization [facility] Address [address] [place] [address] Care Team Providers Name Role Phone Barbra Ryder M.D., Vinnie Vasquez Primary Care Provider Encounter Details Date Type Department Care Team Description 02/18/2017 Hospital Encounter Department of Vinnie Belle Mammogram Radiology in [place]elani Ryder M.D. Average Risk Patient [place], [place] [address] [place] [phone] Social History Tobacco Use Types Packs/Day Years Used Date Smoking Tobacco: Former Sex Assigned at Date Recorded Not on file documented as of this encounter Medications at Time of Discharge Medication Sig Dispensed Refills Start Date End Date cholecalciferol (VITAMIN Take 1,000 Units by 0 D3) 1,000 Unit capsule mouth daily. geriatric Take 1 tablet by 0 01/30/2015 [id number]-[id number] tablet mouth daily. simvastatin (ZOCOR) 10 mg [...] fo r this SCREENING (most inpatients AM DIRECT RESPONSE CONSULTANT Mammogram Average proced ure are in BILATERAL and all Risk Patient the results outpatients) section. documented in this encounter Results BI Breast Screening Bilateral (02/18/2017 11:14 AM DIRECT RESPONSE CONSULTANT) Anatomical Region Laterality Modality Breast Bilateral Mammography Specimen (Source) Anatomical Collection Method Collection Time Re ceived Time Location / / Volume Laterality 02/18/2017 3:25 PM DIRECT RESPONSE CONSULTANT Impressions 02/18/2017 3:27 PM DIRECT RESPONSE CONSULTANT IMPRESSION: ??Negative. RECOMMENDATION: ??Annual Screening Mammo gram ASSESSMENT: ??BI-RADS: 1: Negative. Narrative 02/18/2017 3:27 PM DIRECT RESPONSE CONSULTANT EXAM: ??BI BREAST SCREENING BILATERAL Current study [...] Patient documented in this encounter Care Teams Catheter Finisher And Inspector Relationship Specialty Start Date End Date Vinnie Belle Jr., M.D. PCP - General 09/25/16 02/24/19 [address] [place] [address] documented as of this encounter
--- OUTSIDE RECORDS SUMMARY | 2022-02-21 08:59 | XMS_ITS | Clinical Summary ---
:1935 Author Organization [facility] Address [address] [address] Care Team Providers Name Role Phone Unavailable [...] for each transition of care or referral. [employer] Social History Tobacco Use Types Packs/Day Years [...] Phone Addre ss Type Group MEDICARE MEDICARE [id number] 2017-Presjai [phone] ATTN CLA IMS Medicare t 90 [address] [place] [address] BCBS BCBS [place] [id number] 2017-Presjai [phone] [address] [address] Medicare BLUE t [address] [place] [id number] (Home) [place] [address]
--- OUTSIDE RECORDS SUMMARY | 2022-02-21 09:00 | XMS_ITS | Encounter Summary ---
:1935 Author Organization [facility] Address [address] [place] [address] Care Team Providers Name Role Phone Unavailable Primary Care Provider Unavailable Encounter Details Date Type Department Care Team Description 06/18/2016 Hospital Encounter HX [facility] MAN Lydia Casey M.D. [address] [place] [phone] (Wo rk) Social History Tobacco Use Types Packs/Day Years Used Date Smoking Tobacco: Former Sex Assigned at Date Recorded Not on file documented as of this encounter Last Filed Vital Signs Vital Sign Reading Time Taken Comments Blood Pressure 153/80 06/18/2016 12:09 AM MARKET RESEARCH SENIOR PROJECT MANAGER Pulse 83 06/18/2016 12:09 AM MARKET RESEARCH SENIOR PROJECT MANAGER Temperature - - Respiratory Rate 20 06/18/2016 12:09 AM MARKET RESEARCH SENIOR PROJECT MANAGER Oxygen Saturation - - Inhaled Oxygen Concentration - - Weight - - Height - - Body Mass Index - - documented in this encounter Discharge Summaries Rashmi Charles, RXeniaN. - 06/18/2016 1:09 AM CST ED Discharge Instructions [address] [place] [place] [address] Name: KAROLINE HALEY Date of : 1935 12:00 AM Visit Date: 06/18/2016 12:03 AM [facility] Number: [id number] Address: [address] [place] [phone] Primary Care Provider: BRITNEY BALDWIN MD IMPORTANT: [facility] in [place] would like to thank you for allowing us to assistyou with your healthcare needs. The following includes patient education materials and information regarding your injury/illness. Diagnosis: Chronic Kidney Disease (CKD) Stage 3 GFR 30-59; Cystitis Acute Follow-Up Instructions: With: Address: When: BRITNEY BALDWIN [address] [place] [phone] [employer] ([employer] Within 3 - 5days Comments: Call for [...] in the labia (outer vaginal area) ?? [phone] [facility], [address] [place] [address], [place] [address]. All rights reserved. This information is not [...] if you dont have one. Go to [email or web address] and click on Create Your Account. Then, follow the directions to complete the online form. Youll be asked for your [facility] number which you can find at the [...] nurse or physician. Patient Signature or Responsible Libertarian/Relationship Date Time Provider Signature Date Time IMPORTANT: [...] with a responsible green party. I, KAROLINE HALEY , or responsible green party have received this information and my questions have been answered. I have discussed any challenges I see with this plan with the nurse or physician. Patient Signature or Responsible Libertarian/Relationship Date Time Provider Signature Date Time This document has images extracted. Please consider using General Assembly for all your patient education needs. Source: [facility] POWERCHART Document Id: [id number] ET RESEARCH SENIOR PROJECT MANAGER Rashmi Charles, R.N. - 06/18/2016 1:09 AM CST ED Depart Summary [facility] Emergency Department Clinical Discharge Summary PERSON INFORMATION Name KAROLINE HALEY Age 80 Years 1935 12:00 AM Sex Female Language Mongolian PCP BRITNEY BALDWIN MD Marital Status Visit Id Visit Reason Pain passing urine; UTI Specialty Enc Type Emergency Med Service Emergency Medicine Referred by [facility] MAQN ED Discharge 06/18/2016 1:00 AM Tracking Id [id number] Checkout 06/18/2016 1:00 AM Checkin 06/18/2016 12:03 AM Acuity 4 -Less Urgent Dispo Type * Discharged to Home or Self Care Arrival 06/18/2016 12:03 AM Reg Status JINNY Mitchell 00:57 Address: [address] [place] [address] [place] [phone] Comment: PROVIDER INFORMATION Provider Role Provider Contact Time RASHMI CHARLES COMPUTATIONAL BIOLOGIST Nurse 06/18/16 00:19 JORDAN PAZ MD ED Provider 06/18/16 00:22 DIAGNOSIS Chronic Kidney Disease (CKD) Stage 3 GFR 30-59; Cystitis Acute Comment: PATIENT EDUCATION INFORMATION Instructions: BLADDER INFECTION, Female (Adult) Follow up: With: Address: When: BRITNEY BALDWIN [address] [place] [address] [phone] [facility] ([employer] Within 3 - 5days Comments: Call for follow up appointment. For recheck. Source: [facility] POWERCHART Document Id: [id number] ET RESEARCH SENIOR PROJECT MANAGER documented in this encounter Medications at Time of Discharge Medication Sig Dispensed Refills Start Date End Date cholecalciferol (VITAMIN Take 1,000 Units by 0 D3) 1,000 Unit capsule mouth daily. geriatric Take 1 tablet by 0 01/30/2015 [id number]-tlve-pmcx tablet mouth daily. simvastatin (ZOCOR) 10 mg [...] ED Disposition Summary Entered On: 06/18/2016 1:07 MARKET RESEARCH SENIOR PROJECT MANAGER Performed On: 06/18/2016 1:00 MARKET RESEARCH SENIOR PROJECT MANAGER by RASHMI CHARLES RN ED Disposition Summary Present in Room During Exam/Procedure : Son Mode of Discharge : Ambulatory Transportation : Private vehicle Printed Discharge Instructions Given to Patient : Yes RASHMI CHARLES RN - 06/18/2016 1:07 MARKET RESEARCH SENIOR PROJECT MANAGER Source: [facility] [employer] Document Id: [id number] MARKET RESEARCH SENIOR PROJECT MANAGER!6 ET RESEARCH SENIOR PROJECT MANAGER Rashmi Charles R.N. - 06/18/2016 1:00 AM CST ED Education ED Education Entered On: 06/18/2016 1:08 MARKET RESEARCH SENIOR PROJECT MANAGER Performed On: 06/18/2016 1:00 MARKET RESEARCH SENIOR PROJECT MANAGER by RASHMI CHARLES RN Education ED Education Grid Topics : Discharge instructions/Medication list Individuals Taught : Patient, Son Barriers to Learning : None evident Teaching Method : Explanation, Printed materials Teaching Evaluation : Able to teach back, Verbalizes understanding RASHMI CHARLES RN - 06/18/2016 1:08 MARKET RESEARCH SENIOR PROJECT MANAGER Source: [facility] [employer] Document Id: [id number] MARKET RESEARCH SENIOR PROJECT MANAGER!9 ET RESEARCH SENIOR PROJECT MANAGER Rashmi Charles R.N. - 06/18/2016 12:50 AM CST ED Nurse Reassess ED Nurse Reassess Entered On: 06/18/2016 1:06 MARKET RESEARCH SENIOR PROJECT MANAGER Performed On: 06/18/2016 0:50 MARKET RESEARCH SENIOR PROJECT MANAGER by RASHMI CHARLES RN Pain Assessment Pain Symptoms : Yes RASHMI CHARLES RN - 06/18/2016 1:05 MARKET RESEARCH SENIOR PROJECT MANAGER Comfort Measures Comfort Measures Grid Meditation Facilitation : Yes RASHMI CHARLES RN - 06/18/2016 1:05 MARKET RESEARCH SENIOR PROJECT MANAGER Patient Response : discharge instructions discussed. first dose of cipro given. Comfort Measures Response : Comfort level unchanged RASHMI CHARLES RN - 06/18/2016 1:05 MARKET RESEARCH SENIOR PROJECT MANAGER [facility] Document Id: [id number] MARKET RESEARCH SENIOR PROJECT MANAGER!8 ET RESEARCH SENIOR PROJECT MANAGER Jordan Paz M.D. - 06/18/2016 12:23 AM CST Pain passing urine Document Contains Addenda Addendum by JORDAN PAZ MD on June 18, 2016 0:59 MARKET RESEARCH SENIOR PROJECT MANAGER The urinalysis shows trace leuk esterase with [...] Note : Chief Complaint Description 06/18/2016 0:09 MARKET RESEARCH SENIOR PROJECT MANAGER Chief Complaint Description patient state that she [...] Depression NOS (ICD-9-CM 311). Surgical history: Cholecystectomy (51029780). Lumpectomy (3122367806). Appendectomy (015375161). Colonoscopy (820260508). Comments: 06/17/2016 10:03 - CHANO MO RN 2010 Mammogram ([id number]). Comments: 06/17/2016 10:03 - CHANO MO RN 2014. Family history: Myocardial infarction Son CVA - Cerebrovascular accident Brother Leukemia Mother . Social history: Alcohol use: Denies, Tobacco use: Denies, Occupation: Retired, Family/social situation: , lives alone. Physical Examination Vital Signs: Time: 06/18/2016 00:51:00, Vital Signs 06/18/2016 0:09 MARKET RESEARCH SENIOR PROJECT MANAGER Temperature Core 36.7 DegC Peripheral Pulse Rate 83 /min Respiratory Rate 20 /min SpO2 99 % Limb Alert Question No Systolic Blood Pressure 153 mmHg HI Diastolic Blood Pressure 80 mmHg Mean Arterial Pressure 104 mmHg BP Location Right upper , SpO2 06/18/2016 0:09 MARKET RESEARCH SENIOR PROJECT MANAGER SpO2 99 % . General: Alert, mild [...] if Indicated (Order Processing): Stat, 06/18/2016 0:24 MARKET RESEARCH SENIOR PROJECT MANAGER, Once, Urine, Clean Void (Midstream), Launch Orders Pharmacy: ciprofloxacin (Order Processing): 250 mg, PO, Once. Impression and Plan Diagnosis Chronic Kidney Disease (CKD) Stage 3 GFR 30-59 (Discharge, Emergency medicine, Nursing) Cystitis Acute (Discharge, Emergency medicine, Medical) Plan Condition: Stable. Disposition: Discharged: Time 06/18/2016 00:41:00, to home. Prescriptions: Prescription Folder Tier Pharmacy: ciprofloxacin 250 mg oral tablet (Prescribe): [...] Discharge ED Patient (Order Processing): 06/18/2016 0:44 MARKET RESEARCH SENIOR PROJECT MANAGER, Once. Electronically Signed By: JRODAN PAZ MD On: 06/18/2016 12:54 AM Modified by and Electronically Signed by: JORDAN PAZ MD On: 06/18/2016 12:54 AM Source: [facility] [employer] Document Id: [id number]} ET RESEARCH SENIOR PROJECT MANAGER Rashmi Charles R.N. - 06/18/2016 12:20 AM CST ED Nurse Reassess ED Nurse Reassess Entered On: 06/18/2016 1:07 MARKET RESEARCH SENIOR PROJECT MANAGER Performed On: 06/18/2016 0:20 MARKET RESEARCH SENIOR PROJECT MANAGER by RASHMI CHARLES RN Pain Assessment Pain Symptoms : Yes RASHMI CHARLES RN - 06/18/2016 1:06 MARKET RESEARCH SENIOR PROJECT MANAGER /OB Reassess Patient Stated Symptoms : Burning, Frequency Urine Description : Clear Urine Color : Yellow /OB Note : ua sent to lab RASHMI CHARLES RN - 06/18/2016 1:06 MARKET RESEARCH SENIOR PROJECT MANAGER Source: [facility] [employer] Document Id: [id number] MARKET RESEARCH SENIOR PROJECT MANAGER!8 ET RESEARCH SENIOR PROJECT MANAGER Rashmi Charles RAbimbola - 06/18/2016 12:09 AM CST ED Primary Assessment Document Has Been Updated ED Primary Assessment Entered On: 06/18/2016 0:15 MARKET RESEARCH SENIOR PROJECT MANAGER Performed On: 06/18/2016 0:09 MARKET RESEARCH SENIOR PROJECT MANAGER by RASHMI CHARLES RN Reason For Visit (As Of: 06/18/2016 00:15:49 MARKET RESEARCH SENIOR PROJECT MANAGER) Problems(Active) Anemia Pers Hx (ICD-10-CM :Z86.2 ) Name of Problem: Anemia Pers Hx ; Recorder: CHANO MO RN; Confirmation: Confirmed ; Classification: Nursing ; Code: Z86.2 ; Contributor System: PowerChart ; LastUpdated: 06/17/2016 9:51 MARKET RESEARCH SENIOR PROJECT MANAGER ; Life Cycle Date: 06/17/2016 ; Life Cycle Status: Active ; ResponsibleProvider: CHANO MO RN; Vocabulary: ICD-10-CM Arthritis Inflammatory (ICD-10-CM :M06.4 ) Name of Problem: Arthritis Inflammatory ; Recorder: HCANO MO RN; Confirmation: Confirmed ; Classification: Nursing ; Code: M06.4 ; Contributor System: AIRT[employer] ; Last Updated: 06/17/2016 9:57 MARKET RESEARCH SENIOR PROJECT MANAGER ; Life Cycle Date: 06/17/2016 ; Life Cycle Status: Active ; Responsible Provider: CHANO MO RN; Vocabulary: ICD-10-CM Cerumen Impacted NOS (ICD-10-CM :H61.20 ) Name of Problem: Cerumen Impacted NOS ; Recorder: CHANO MO RN; Confirmation: Confirmed ; Classification: Nursing ; Code: H61.20 ; Contributor System: [employer] ; Last Updated: 06/17/2016 9:56 MARKET RESEARCH SENIOR PROJECT MANAGER ; Life Cycle Date: 06/17/2016 ; Life Cycle Status: Active; Responsible Provider: CHANO MO RN; Vocabulary: ICD-10-CM Cervical Disc Disorder With Myelopathy (ICD-10-CM :M50.00 ) Name of Problem: Cervical Disc Disorder With Myelopathy ; Recorder: CHANO MO RN; Confirmation: Confirmed ; Classification: Nursing ; Code: M50.00 ; Contributor System: [employer] ; Last Updated: 06/17/2016 9:49 MARKET RESEARCH SENIOR PROJECT MANAGER ; Life Cycle Date: 10/2016 ; Life Cycle Status: Active ; Responsible Provider: CHANO MO RN; Vocabulary: ICD-10-CM Chronic Kidney Disease (CKD) Stage 3 GFR 30-59 (ICD-10-CM :N18.3 ) Name of Problem: Chronic Kidney Disease (CKD) Stage 3 GFR 30-59 ; Recorder: CHANO MO RN; Confirmation: Confirmed ; Classification: Nursing ; Code: N18.3 ; Contributor System: [employer] ; Last Updated: 06/17/2016 9:56 MARKET RESEARCH SENIOR PROJECT MANAGER ; Life Cycle Date: 06/17/2016 ; Life [...] of Problem: Cough NOS ; Recorder: CHANO OM RN; Confirmation: Confirmed ; Classification: Nursing ; Code: R05 ; Contributor System: PowerChart ; Last Updated: 06/17/2016 9:54 MARKET RESEARCH SENIOR PROJECT MANAGER ; Life Cycle Date: 06/17/2016 ; Life [...] System: PowerChart ; Last Updated: 06/17/2016 9:54 MARKET RESEARCH SENIOR PROJECT MANAGER ; Life Cycle Date: 06/17/2016 ; Life Cycle Status: Active ; Responsible Provider: CHANO MO RN; Vocabulary: ICD-10-CM Hyperlipidemia Mixed (ICD-10-CM :E78.2 ) Name of Problem: Hyperlipidemia Mixed ; Recorder: CHANO MO RN; Confirmation: Confirmed ; Classification: Nursing ; Code: E78.2 ; Contributor System: PowerChart ; Last Updated: 06/17/2016 9:56 MARKET RESEARCH SENIOR PROJECT MANAGER ; Life Cycle Date: 06/17/2016 ; Life [...] System: PowerChart ; Last Updated: 06/17/2016 9:50 MARKET RESEARCH SENIOR PROJECT MANAGER ; Life Cycle Date: 06/17/2016 ; Life Cycle Status: Active ; Responsible Provider: CHANO MO RN; Vocabulary: ICD-10-CM Osteoporosis NOS (ICD-10-CM :M81.0 ) Name of Problem: Osteoporosis NOS ; Recorder: CHANO MO RN; Confirmation: Confirmed ; Classification: Nursing ; Code: M81.0 ; Contributor System: PowerChart ; Last Updated: 06/17/2016 9:51 MARKET RESEARCH SENIOR PROJECT MANAGER ; Life Cycle Date: 06/17/2016 ; Life Cycle Status: Active ; Responsible Provider: CHANO MO RN; Vocabulary: ICD-10-CM Pain Back NOS (ICD-10-CM :M54.9 ) Name of Problem: Pain Back NOS ; Recorder: CHANO MO RN; Confirmation: Confirmed ; Classification: Nursing ; Code: M54.9 ; Contributor System: PowerChart ; Last Updated: 06/17/2016 9:55 MARKET RESEARCH SENIOR PROJECT MANAGER ; Life Cycle Date: 06/17/2016 ; Life Cycle Status: Active ; Responsible Provider: CHANO MO RN; Vocabulary: ICD-10-CM Pain Musculoskeletal NOS (ICD-10-CM :M79.1 ) Name of Problem: Pain Musculoskeletal NOS ; Recorder: CHANO MO RN; Confirmation: Confirmed ; Classification: Nursing ; Code: M79.1 ; Contributor System: PowerChart ; Last Updated: 06/17/2016 9:54 MARKET RESEARCH SENIOR PROJECT MANAGER ; Life Cycle Date: 06/17/2016 ; Life Cycle Status: Active ; Responsible Provider: CHANO MO RN; Vocabulary: ICD-10-CM Rash NOS (ICD-10-CM :R21 ) Name of Problem: Rash NOS ; Recorder: CHANO MO RN; Confirmation: Confirmed ; Classification: Nursing ; Code: R21 ; Contributor System: [employer] ; Last Updated: 06/17/2016 9:57 MARKET RESEARCH SENIOR PROJECT MANAGER ; Life Cycle Date: 06/17/2016 ; Life Cycle Status: Active ; Responsible Provider: CHANO MO RN; Vocabulary: ICD-10-CM 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 ) Name of Problem: Regurgitation Tricuspid NOS ; Recorder: JORDAN PAZ MD; Confirmation: Confirmed ; Classification: Medical ; Code: 397.0 ; Contributor System: A[employer]AMEChart ; Last Updated: 10/19/2014 21:38 CDT ; Life Cycle Date: 10/19/2014 ; Life CycleStatus: Active ; Vocabulary: ICD-9-CM Sclerosis Aortic Valve (ICD-10-CM :I35.8 ) Name of Problem: Sclerosis Aortic Valve ; Recorder: CHANO MO RN; Confirmation: Confirmed ; Classification: Nursing ; Code: I35.8 ; Contributor System: PowerChart ; Last Updated: 06/17/2016 9:52 MARKET RESEARCH SENIOR PROJECT MANAGER ; Life Cycle Date: 06/17/2016 ; Life Cycle Status: Active ; Responsible Provider: CHANO MO RN; Vocabulary: ICD-10-CM Venous Disease (ICD-10-CM :I87.9 ) Name of Problem: Venous Disease ; Recorder: CHANO MO RN; Confirmation: Confirmed ; Classification: Nursing ; Code: I87.9 ; Contributor System: [employer] ; LastUpdated: 06/17/2016 9:53 MARKET RESEARCH SENIOR PROJECT MANAGER ; Life Cycle Date: 06/17/2016 ; Life Cycle Status: Active ; ResponsibleProvider: CHANO MO RN; Vocabulary: ICD-10-CM Diagnoses(Active) Pain passing urine Date: 06/18/2016 ; Diagnosis Type: Reason For Visit ; Confirmation: Complaint of ; Clinical Dx: Pain passing urine ; Classification: Medical ; Clinical Service: Emergency medicine ; Code: PNED ; Probability: 0 ; Diagnosis Code: [id number] Triage Chief Complaint Description : patient state that she thinks she has a uti. is going more frequently and is having pain. states she just got off of amoxicillin on thursday for a sinus infection. Information Given By : Patient Present in Room During Exam/Procedure : Son Mode of Arrival ED : Private vehicle Track : Medical Languages : Mongolian Vital Signs Assessed : Yes Treatments Prior to Arrival : None Is Patient Female and 13-50 no hysterectomy : No RASHMI CHARLES 06/18/2016 0:09 MARKET RESEARCH SENIOR PROJECT MANAGER Vital Signs Temperature Core : 36.7 DegC(Converted [...] : Intermittent Oxygen Therapy : Room air RASHMI CHARLES 06/18/2016 0:09 MARKET RESEARCH SENIOR PROJECT MANAGER Pain Assessment Pain Symptoms : Yes RASHMI CHARLES 06/18/2016 0:09 MARKET RESEARCH SENIOR PROJECT MANAGER Pain Scale Pain Scale Verbal 0-10 : Open RASHMI CHARLES 06/18/2016 0:09 MARKET RESEARCH SENIOR PROJECT MANAGER Pain Pain Assessment Grid Pain 1 Location : Vagina Laterality : Bilateral Intensity : 9 Time Pattern : Acute, Constant, Intermittent Onset : Gradual Quality : Burning Aggravating Factors : Other: voiding RASHMI CHARLES RN 06/18/2016 0:09 MARKET RESEARCH SENIOR PROJECT MANAGER JOANA JOANA Level 1 : No JOANA Level 2 : No JOANA Level 3 : One RASHMI CHARLES 06/18/2016 0:09 MARKET RESEARCH SENIOR PROJECT MANAGER DCP GENERIC CODE Tracking Acuity : 4 -Less Urgent Tracking Group : MAQN ED RASHMI CHARLES 06/18/2016 0:09 MARKET RESEARCH SENIOR PROJECT MANAGER Allergy Latex Reaction : No Latex Hives/Itch : No Latex Congestion/Eye Irr/Breathing : No Latex Symptom Progression : No Latex Previous Test : No RASHMI CHARLES 06/18/2016 0:09 MARKET RESEARCH SENIOR PROJECT MANAGER (As Of: 06/18/2016 00:15:50 MARKET RESEARCH SENIOR PROJECT MANAGER) Allergies (Active) Septra Estimated Onset Date: Unspecified ; Created By: STEFANIE BALDWIN MD; Reaction Status: Active ; Category: Drug ; Substance: Septra ; Type: Allergy ; Updated By: STEFANIE BALDWIN MD; Reviewed Date: 06/18/2016 0:11 MARKET RESEARCH SENIOR PROJECT MANAGER zinc acetate containing compounds Estimated Onset Date: Unspecified ; Reactions: rash ; Created By: GAGAN TRAN DICTIONARY EDITOR; Reaction Status: Active ; Category: Drug ; Substance: zinc acetate containing compounds ; Type: Allergy ; Updated By: GAGAN TRAN [facility]; Reviewed Date: 06/18/2016 0:11 MARKET RESEARCH SENIOR PROJECT MANAGER ID Screen Drug Resistant Organism : No RASHMI CHARLES RN - 06/18/2016 0:09 MARKET RESEARCH SENIOR PROJECT MANAGER Immunizations Immunizations Current : Yes RASHMI CHARLES RN - 06/18/2016 0:09 MARKET RESEARCH SENIOR PROJECT MANAGER Respiratory Airway : Patent Respirations : Unlabored Respiratory Pattern : Regular RASHMI CHARLES RN - 06/18/2016 0:09 MARKET RESEARCH SENIOR PROJECT MANAGER Cardiovascular Heart Rhythm : Regular Skin Color : Greenleaf Skin Description : Rash Skin Temperature : Warm RASHMI CHARLES RN - 06/18/2016 0:09 MARKET RESEARCH SENIOR PROJECT MANAGER Neurological Last Well Time Known : Not applicable Level of Consciousness : Alert Orientation : Oriented x 3 Characteristics of Speech : Appropriate for age RASHMI CHARLES RN - 06/18/2016 0:09 MARKET RESEARCH SENIOR PROJECT MANAGER ED Psychosocial Affect/Behavior : Calm, Cooperative Domestic Abuse Concerns : None Behavioral Health Screen/Safety Assmt : No RASHMI CHARLES RN - 06/18/2016 0:09 MARKET RESEARCH SENIOR PROJECT MANAGER Gastrointestinal Nutrition ED : Adequate RASHMI CHARLES RN - 06/18/2016 0:09 MARKET RESEARCH SENIOR PROJECT MANAGER Integumentary Integumentary Patient Stated Symptoms : Rash Skin Turgor : Elastic Integ Note : red rash around mouth, on chin and upper lip. red and raw. RASHMI CHARLES RN - 06/18/2016 0:09 MARKET RESEARCH SENIOR PROJECT MANAGER Musculoskeletal Fall Prevention Education Provided : RASHMI RYAN RN - 06/18/2016 0:09 MARKET RESEARCH SENIOR PROJECT MANAGER Social Habits Exposure to Tobacco Smoke : Care provider denies smoking in home Smoking Status : Never smoker Tobacco 2A : No Tobacco Use/Currently Using : No Tobacco Use/Last 30 Days : No Tobacco Use/Last 12 months : No Tobacco Last Use/Year : 1968 RASHMI CHARLES RN - 06/18/2016 0:09 MARKET RESEARCH SENIOR PROJECT MANAGER Source: [facility] POWERCHART Document Id: [id number] MARKET RESEARCH SENIOR PROJECT MANAGER!88 ET RESEARCH SENIOR PROJECT MANAGER documented in this encounter Miscellaneous Notes Miscellaneous - Rashmi Charles R.N. - 06/18/2016 1:00 AM CST Valuables/Belongings Valuables/Belongings Entered On: 06/18/2016 1:08 MARKET RESEARCH SENIOR PROJECT MANAGER Performed On: 06/18/2016 1:00 MARKET RESEARCH SENIOR PROJECT MANAGER by RASHMI CHARLES RN Valuables/Belongings Room Orientation/Facility Policy Reviewed : Yes Belongings Sent Home With : patient Home Medication Disposition : None brought in with patient RASHMI CHARLES RN - 06/18/2016 1:08 MARKET RESEARCH SENIOR PROJECT MANAGER Source: [employer] Document Id: [id number] MARKET RESEARCH SENIOR PROJECT MANAGER!5 ET RESEARCH SENIOR PROJECT MANAGER Miscellaneous - Conversion, Historical Provider Ser - 06/18/2016 1:00 AM MARKET RESEARCH SENIOR PROJECT MANAGER Coding Summary-Paper Based CODING DATE: 06/26/2016 FINAL [facility] STATUS: * Discharged to Home [...] VERA Date Saved: 06/26/2016 12:47 pm Source: [employer] Document Id: [id number] Miscellaneous - Rashmi Charles R.N. - 06/18/2016 12:03 AM CST Facility Charge Ticket 2.0 11.0 DX Facility Charge Ticket 2.0 11.0 DX Entered On: 06/18/2016 1:08 MARKET RESEARCH SENIOR PROJECT MANAGER Performed On: 06/18/2016 0:03 MARKET RESEARCH SENIOR PROJECT MANAGER by RASHMI CHARLES RN Facility Charge Ticket [...] Nursing Notes ED Primary Assessment,06/18/16 00:09,RASHMI CHARLES COMPUTATIONAL BIOLOGIST Nurse Reassess,06/18/16 00:50,RASHMI CHARLES COMPUTATIONAL BIOLOGIST Nurse Reassess,06/18/16 00:20,RASHMI CHARLES RN [facility] Nursing Assessment : Triage and 1-2 nursing assessments [facility]x Disposition : Discharge Disposition RTF : discharge [facility] Total Points with Diagnosis Control : 6 Lynx Visit Level : 64963 Level 3 Treatments Prior to Arrival : None RASHMI CHARLES RN - 06/18/2016 1:08 MARKET RESEARCH SENIOR PROJECT MANAGER Source: [facility] POWERCHART Document Id: [id number] MARKET RESEARCH SENIOR PROJECT MANAGER!19 ET RESEARCH SENIOR PROJECT MANAGER documented in this encounter Plan of Treatment Not on filedocumented as of this encounter Procedures Procedure Name Priority Date/Time Associated Diagnosis Comme nts BACTERIAL CULTURE, Routine 06/18/2016 12:41 AM Re sults for this AEROBIC, URINE MARKET RESEARCH SENIOR PROJECT MANAGER procedure are in the results section. URINALYSIS, Routine 06/18/2016 12:21 AM Results for this MIDSTREAM, WITH MARKET RESEARCH SENIOR PROJECT MANAGER procedure ar e in CULTURE IF the results INDICATED section. documented in this encounter Results Bacterial Culture, Aerobic, Urine (06/18/2016 12:41 AM MARKET RESEARCH SENIOR PROJECT MANAGER) Analysis Performed At [facility] Time Signature Bacterial POWERCHART Culture, Aerobic, Urine HXFinal No growth POWERCHART Specimen Anatomical Collection Method Collection Time Receive d Time (Source) Location / / Volume Laterality Urine, First 06/18/2016 12:41 06/18/2016 Voided AM MARKET RESEARCH SENIOR PROJECT MANAGER 12:41 AM MARKET RESEARCH SENIOR PROJECT MANAGER Jordan Paz M.D. LAB MICROBIOLOGY - GENERAL O RDERABLES Performing Organization Address City/State/ZIP Code Phon e Number POWERCHART (ABNORMAL) Urinalysis, Midstream, with culture if indicated (06/18/2016 12:21 AM MARKET RESEARCH SENIOR PROJECT MANAGER) [facility] Method Time Signature HXUr Color Yellow Colorless POWERCHART Clarity Clear Clear POWERCHART Glucose Negative Negative MGDL POWERCHART HXBILIRUBIN Negative Negative POWERCHART Ketones, QL(U) Negative Negative MGDL POWERCHART Specific 1.025 POWERCHART [place], POCT, U Comment: Reference Range Specific [place]: 1.000-1.035 HXBLOOD Trace (A) Negative POWERCHART pH, [...] Laterality Urine, First 06/18/2016 12:21 Voided AM MARKET RESEARCH SENIOR PROJECT MANAGER Jordan Paz M.D. LAB URINE ORDERABLES Performing Organization Address City/State/[facility] Code Phon e Number POWERCHART documented in this encounter Visit Diagnoses Not on filedocumented in this encounter
--- OUTSIDE RECORDS SUMMARY | 2022-02-21 09:00 | XMS_ITS | Encounter Summary ---
:1935 Author Organization [facility] Address [address] [place] [address] Care Team Providers Name Role Phone Unavailable Primary Care Provider Unavailable Encounter Details Date Type Department Care Team Description 03/03/2016 Hospital Encounter HX [facility] Vinnie Aguilar Jr., M.D. [address] [place], [place] [address] (Wo rk) Social History [...] geriatric Take 1 tablet by 0 01/30/2015 tjgaiepc-wmdq-mmlt tablet mouth daily. simvastatin (ZOCOR) 10 mg Take 10 mg by 0 015 tablet mouth at bedtime. raNITIdine (ZANTAC) 150 mg 150 mg. 0 5 07/23/2020 tablet documented as of this encounter Miscellaneous Notes Miscellaneous - Conversion, Historical Provider Ser - 03/04/2016 8:03 AM CANCER RESEARCHER Coding Summary-Paper Based CODING DATE: 03/04/[address] [facility] STATUS: * Discharged to [...] FAGAN Date Saved: 03/04/2016 08:03 am Source: [facility] POWERCHART Document Id: [id number] documented in this encounter Plan of Treatment Not on filedocumented as of this encounter Procedures Procedure Name Priority Date/Time Associated Diagnosis Comme nts BI BREAST SCREENING Routine 03/03/2016 10:30 AM R esults for this BILATERAL CANCER RESEARCHER procedure are i n the results section. documented in this encounter Results BI Breast Screening Bilateral (03/03/2016 10:30 AM CANCER RESEARCHER) Anatomical Region Laterality Modality Breast Bilateral Mammography Specimen (Source) Anatomical Collection Method Collection Time Re ceived Time Location / / Volume Laterality 03/03/2016 10:30 AM CANCER RESEARCHER Addenda Addendum by ProviderAbraham M.D. o n 03/03/2016 10:30 AM CANCER RESEARCHER RAD^^^MA MA Mammo Screening w/ CADD 03/03/2016 10:30:00 Impressions 03/03/2016 11:41 AM CANCER RESEARCHER BI-RADS 2. ??BENIGN FINDING (S) RECOMMENDATION: Routine screening mammog hugh. BREAST MAMMOGRAPHY - GENERAL OBSERVATION S: ??The false negative rate for mammography is 15-20%. ??It cannot b e used, therefore, to replace the regular physical examination. ??A no rmal or noncontributory mammogram report also should not deter t he aggressive further workup of any suspected palpable masses. Narrative 03/03/2016 11:41 AM CANCER RESEARCHER EXAM: Bilateral digital screening mammog junior COMPARISON: [...]
--- OUTSIDE RECORDS SUMMARY | 2022-02-21 09:00 | XMS_ITS | Encounter Summary ---
:1935 Author Organization [facility] Address [address] [place] [address] Care Team Providers Name Role Phone Unavailable Primary Care Provider Unavailable Encounter Details Date Type Department Care Team Description 05/22/[address] [facility] Charisma He P.A.-C., VANDANA Social History Tobacco Use Types Packs/Day Years Used Date Smoking Tobacco: Former Sex Assigned at Date Recorded Not on file documented as of this encounter Last Filed Vital Signs Vital Sign Reading Time Taken Comments Blood Pressure 132/64 05/22/2016 3:32 PM FACILITY MAINTENANCE HELPER Pulse 112 05/22/2016 3:32 PM FACILITY MAINTENANCE HELPER Temperature - - Respiratory Rate - [...] geriatric Take 1 tablet by 0 01/30/2015 gizsffts-yyiw-jcrd tablet mouth daily. simvastatin (ZOCOR) 10 mg Take 10 mg by 0 015 tablet mouth at bedtime. raNITIdine (ZANTAC) 150 mg 150 mg. 0 5 07/23/2020 tablet documented as of this encounter Progress Notes James Huffman P.A.-C. - 05/22/2016 2:44 PM CST [id number] CHIEF COMPLAINT/REASON FOR VISIT Sore throat. Please [...] Mildly tachycardic at 112. NECK: Supple. SKIN: [place], warm and dry. IMPRESSION/REPORT/PLAN 1. Non-Streptococcal pharyngitis. [...] HUFFMAN PA-C On: 05/26/2016 02:30 PM Source: [facility] MHSDOLBEYNONRADSYS Document Id: [id number] LITY MAINTENANCE HELPER documented in this encounter Procedure Notes Gagan Tran C.M.A. - 05/22/2016 3:48 PM CST Rapid Strep A Screen POC Rapid Strep A Screen POC Entered On: 05/22/2016 15:48 FACILITY MAINTENANCE HELPER Performed On: 05/22/2016 15:48 FACILITY MAINTENANCE HELPER by GAGAN TRAN CMA Rapid Strep A Screen POC Rapid Strep A Screen POC : Negative Internal Positive QC : Pass Internal Negative QC : Pass Rapid Strep Device Lot Number : [id number] Rapid Strep Device Expiration Date : 08/10/2017 CDT CHELSEA GAGAN Birch [facility] - 05/22/2016 15:48 FACILITY MAINTENANCE HELPER Source: [facility] POWERCHART Document Id: [id number] FACILITY MAINTENANCE HELPER!7 LITY MAINTENANCE HELPER documented in this encounter Miscellaneous Notes Miscellaneous - James Huffman P.A.-C. - 05/22/2016 3:56 PM CST Ambulatory Patient Summary [facility] - [address] [id number] Visit Information Name: KAROLINE HALEY [facility] Number: [id number] Current Date: 05/22/2016 15:56:00 [...] if you dont have one. Go to [email or web address] and click on Create Your Account. Then, follow the directions to complete the online form. Youll be asked for your [facility] number which you can find at the top of this document. Your Goals/Additional instructions: Source: [facility] POWERCHART Document Id: [id number] LITY MAINTENANCE HELPER Miscellaneous - James Huffman P.A.-C. - 05/22/2016 3:56 PM CST Ambulatory Discharge Medication List [facility] - [address] [id number] Visit Information Name: SUDHAKAROLINE [facility] Number: [id number] Current Date: 05/22/2016 15:56:00 [...] Signed By: Signed On: Additional Information: Source: [facility] POWERCHART Document Id: [id number] LITY MAINTENANCE HELPER Miscellaneous - Gagan Tran C.M.A. - 05/22/2016 3:32 PM CST Adult Ceo And President Intake/History Adult Ceo And President Intake/History Entered On: 05/22/2016 15:35 FACILITY MAINTENANCE HELPER Performed On: 05/22/2016 15:32 FACILITY MAINTENANCE HELPER by GAGAN TRAN [facility] Intake Chief Complaint : ST Onset of Symptoms : today AM Temperature Core : 36.8 DegC(Converted to: 98.2 DegF) Limb Alert Question : No Peripheral Pulse Rate : 112 /min (HI) Systolic Blood Pressure : 132 mmHg Diastolic Blood Pressure : 64 mmHg NIBP Mean : 87 mmHg GAGAN TRAN [facility] - 05/22/2016 15:32 FACILITY MAINTENANCE HELPER General Info Languages : Sao [place]omean Is Patient Female and 13-50 no hysterectomy : No GAGAN TRAN [facility] - 05/22/2016 15:32 FACILITY MAINTENANCE HELPER Subjective Pain Symptoms : Yes GAGAN TRAN CMA - 05/22/2016 15:32 FACILITY MAINTENANCE HELPER Pain Scale Pain Scale Verbal 0-10 : Open GAGAN TRAN CMA - 05/22/2016 15:32 FACILITY MAINTENANCE HELPER Pain Pain Assessment Grid Pain 1 Location : Throat Laterality : Bilateral Time Pattern : Constant GAGAN TRAN [facility] - 05/22/2016 15:32 FACILITY MAINTENANCE HELPER Dependent Habits Exposure to Tobacco Smoke : Care provider denies smoking in home Smoking Status : Former smoker Tobacco 2A : Yes Tobacco Use/Currently Using : No Tobacco Use/Last 30 Days : No Tobacco Use/Last 12 months : No Tobacco Last Use/Year : 1969 GAGAN TRAN Eyal [facility] - 05/22/2016 15:32 FACILITY MAINTENANCE HELPER Caffeine Use Grid Caffeine Use : Current Type : Coffee, Soft drinks, Tea Frequency : Daily Amount : 1 cup CHELSEA GAGAN Birch [facility] - 05/22/2016 15:32 FACILITY MAINTENANCE HELPER Source: [facility] POWERCHART Document Id: [id number] FACILITY MAINTENANCE HELPER!37 LITY MAINTENANCE HELPER documented in this encounter Plan of Treatment Not on filedocumented as of this encounter Procedures Procedure Name Priority Date/Time Associated Diagnosis Comme nts RAPID STREP A Routine 05/22/2016 3:48 PM Results for this SCREEN FACILITY MAINTENANCE HELPER procedure are i n the results section. documented in this encounter Results Rapid Strep A Screen (05/22/2016 3:48 PM FACILITY MAINTENANCE HELPER) [facility] gist Method Time Signature HXRapid Strep POWERCHART Confirmation HXPre Negative for POWERCHART Group A Strep by culture. HXFinal Negative for POWERCHART Group A Strep by culture. Specimen (Source) Anatomical Collection Method Collection Time Re ceived Time Location / / Volume Laterality Throat 05/22/2016 3:48 PM FACILITY MAINTENANCE HELPER James Huffman P.A.-C., VANDANA LAB MICROBIOLOGY - GENER AL ORDERABLES Performing Organization Address City/State/ZIP Code Phon e Number POWERCHART documented in this encounter Visit Diagnoses Not on filedocumented in this encounter
--- OUTSIDE RECORDS SUMMARY | 2022-02-21 09:00 | XMS_ITS | Encounter Summary ---
:1935 Author Organization [facility] Address [address] [place] [address] Care Team Providers Name Role Phone Unavailable [...] geriatric Take 1 tablet by 0 01/30/2015 itlwedvj-sjjg-lgxx tablet mouth daily. simvastatin (ZOCOR) 10 mg Take 10 mg by 0 015 tablet mouth at bedtime. raNITIdine (ZANTAC) 150 mg 150 mg. 0 5 07/23/2020 tablet documented as of this encounter Miscellaneous Notes Miscellaneous - Conversion, Historical Provider Ser - 05/22/2016 11:59 PM FILLING [employer]ULER [employer]ING Coding Summary-Paper Based CODING DATE: 06/03/2016 FINAL [facility] STATUS: * Discharged to Home or Self [...] MORAN Date Saved: 06/03/2016 12:11 pm Source: [employer] Document Id: [id number] documented in this encounter Plan of Treatment Not on filedocumented as of this encounter Visit Diagnoses Not on filedocumented in this encounter
--- OUTSIDE RECORDS SUMMARY | 2022-02-21 09:00 | XMS_ITS | Encounter Summary ---
:1935 Author Organization [facility] Address [address] [place] [address] Care Team Providers Name Role Phone Unavailable Primary Care Provider Unavailable Encounter Details Date Type Department Care Team Description 08/21/2016 Hospital Encounter HX [facility] MAQN Berto Lundy M.D. [address] [place] [address] (Wo rk) Social History Tobacco Use Types [...] geriatric Take 1 tablet by 0 01/30/2015 rpgebpll-jwbt-lhnv tablet mouth daily. simvastatin (ZOCOR) 10 mg [...] Jr., M.D. - 08/21/2016 10:15 AM CDT [id number] CHIEF COMPLAINT/REASON FOR VISIT Surgery. HISTORY OF PRESENT ILLNESS This is a 80-year-old female, admitted at this time for a right cataract procedure with Dr. Moncada at [facility]. See Dr. Moncada's consultative note. It should be noted that the patient had a left cataract procedure at [place] on 07/24/2016. Patient subsequently developed a cystitis [...] disease and beingfollowed by Dr. Dent in [place]. She has a left renal stone. She [...] BALDWIN MD On: 08/22/2016 10:11 PM Source: [facility] MHSDOLBEYNONRADSYS Document Id: [id number] documented in this encounter Procedure Notes Nan [...] : Yes Jewelry/Piercing Removed : Yes Makeup/Nail Slovenian Removed : Yes Oral Hygiene : Yes Preop Scrub AM of Surgery : Yes Preop Scrub Night Prior to Surgery : Yes Prosthesis Removed : NA Tampon Removed : NA Verified - No hair products used : Yes Voided education professional to procedure : Yes Wearing Patient Gown [...] : Living will, Health care power of flooring machine feeder Advance Directive Location : Scanned into EMR [...] TRAN; Reviewed Date: 08/21/2016 9:25 CDT Source: [facility] POWERCHART Document Id: [id number] CDT!75 documented in this encounter Nursing Notes [...] Information Given By : Patient Languages : Portuguese Have you received chemotherapy in last 48 [...] Yes Behavioral Health Screen/Safety Assmt : No Adventism Preference : Yarsanism: Mosque NAN DIAZ RN - 08/21/2016 9:24 CDT Advance Directive Advanced Directives : Yes Advance Directive Type : Living will, Health care power of flooring machine feeder Advance Directive Location : Scanned into EMR [...] DIAZ RN - 08/21/2016 9:24 CDT Source: [facility] POWERCHART Document Id: [id number] CDT!10 documented in this encounter OR Notes Op Note - Conversion, Historical Provider Ser - 08/21/2016 1:29 PM CDT [employer] CASE RECORD UPLOAD DATA PATIENT: KAROLINE NUÑEZ SURGERY DATE: 08/21/2016 UNIT #: [id number] ROOM: [address] NBR: [id number] STATUS: In Process DATE: 1935 SIGN. STATUS: [...] -- PAGE : OR02B Anesthesia Staff Anesthesiologist: MARKETING COMPLIANCE MANAGER: Jaskaran Brannon MARKETING COMPLIANCE MANAGER SECTION NAME : 1/IntraOp Case Record -- [...] Surgery Start Time: 1111 OR Nurse Initials: [facility] Notes: BRIEFING DONE ALL PARTICIPATED SECTION NAME : 1/IntraOp Case Record -- PAGE : OR06A Case Personnel Back Tender: Marlen Reyna RN, Lisa RN Relief Back Tender: SECTION NAME : 1/IntraOp Case Record -- PAGE : OR06B Case Personnel OR Tech: Elizabeth Tapia LPN Relief OR Tech: SECTION NAME : 1/IntraOp Case Record -- PAGE : PERRY Case Warehouse Supervisor 3Rd Shift: MAUREEN None Relief Assist: SECTION NAME : [...] Comment: Positioned By: ALCIRA Certified Registered Nurse Putty Tinter Maker DEONNA Registered Nurse Comment: SECTION NAME : [...] 5: 10: 15: Out: SECTION NAME : 1/[facility] Case Record -- PAGE : OR09F Post [...] (ml): LESS THAN 1ML SECTION NAME : 1/[facility] Case Record -- PAGE : OR10A Specimen [...] RN prior to prep SECTION NAME : 1/[facility] Case Record -- PAGE : OR11A1 Meds2 Time: VO / RBO / Given By: SECTION NAME : 1/[facility] Case Record -- PAGE : OR11B XRay X-Rays Taken: N X-Ray Type: Indication for X-Ray: Patient Shield: Other Indication for X-Ray: SECTION NAME : 1/[facility] Case Record -- PAGE : OR12A Cautery Grounding Pad Applied: N/A Cautery Pad Placement: If Other, detail: ESU Number: Cut: Coagulation: Blend: Bipolar: SECTION NAME : 1/IntraOp Case Record -- PAGE : OR12B Special Equipment Special Equipment Used: EYE Eye Microscope MARIIA Gaitan PHACO Phaco Machine Comment: provided by [employer] provided by [facility] Notes: Thermal Unit: Temperature: N/A SECTION [...] DONE ALL PARTICIPATE D SECTION NAME : /[facility] Case Record -- PAGE : OR16B Sponge Count Count Description: INITIAL Initial Count END End of Procedure Sponge: N/A N/A SECTION NAME : /[facility] Case Record -- PAGE : OR16C Sharp Count Count Description: INITIAL Initial Count END End of Procedure Sharps: N/A N/A SECTION NAME : 1/[facility] Case Record -- PAGE : OR16D Instrument Count Count Description: INITIAL Initial Count END End of Procedure Instruments: N/A N/A SECTION NAME : 1/IntraOp Case Record -- PAGE : OR16E Patient Discharged To Transport Via: CART Cart with Side Rails Up X2 OR Pt Discharge To: [facility] Room: : Time: SECTION [...] #: Serial #: Reference # Location: 1 [id number] RIGHT EYE # Eyeglass Maker: Date: Wasted: 10/10/2020 Notes: Lan Lens SECTION NAME : 1/[facility] Case Record -- PAGE : OR22A Tissue Log A Ssrs Developer From Lab to OR: Tissue Description Tissue [...] Delivery Time: Sex: Delivery Assistance: Notes: [facility] Document Id: [id number] Op Note - Jaskaran Pederson, MARKETING COMPLIANCE MANAGER - 08/21/2016 11:22 AM CDT ANES, Phase [...] PEDERSON CRNA On: 08/21/2016 11:23 AM Source: [employer] POWERCHART Document Id: [id number] Op Note - Jaskaran Pederson CRNA - [...] PEDERSON CRNA On: 08/21/2016 10:56 AM Source[facility] POWER[facility] Document Id: [id number] documented in this encounter Miscellaneous Notes Miscellaneous - Conversion, Historical Provider Ser - 08/21/2016 12:10 PM CDT Coding Summary-Paper Based CODING DATE: 08/26/[address] [facility] STATUS: * Discharged to Home or Self Care PAYOR: Medicare APC DESCRIPTION 549 Level 1 Intraocular Procedures ADMIT DX: REASON FOR VISIT DX: FINAL DX: PRINCIPAL: H26.9 Unspecified cataract SECONDARY: PYMT PROC APC STAT DESCRIPTION DOCTOR NAME DATE 5490 J1 CATARACT REMOVAL BERTO MONCAAD MD 08/21/2016 INSERTION OF LENS RT RIGHT [...] Revised Date Saved: 08/26/2016 12:18 pm Source: [employer] Document Id: [id number] Miscellaneous - Michelle Tate, R.N. - 08/21/2016 [...] Morning Snack : 100 % (Comment: small slovenian [MICHELLE TATE RN - 08/21/2016 13:07 CDT] [...] TATE RN - 08/21/2016 13:07 CDT Source: [facility] POWERCHART Document Id: [id number] CDT!73 Miscellaneous - Michelle Tate R.N. - 08/21/2016 11:20 AM CDT [...] TATE RN - 08/21/2016 11:34 CDT Source: [facility] Document Id: [id number] CDT!41 documented in this encounter Plan of Treatment Not on filedocumented as of this encounter Visit Diagnoses Not on filedocumented in this encounter
--- OUTSIDE RECORDS SUMMARY | 2022-02-21 09:00 | XMS_ITS | Encounter Summary ---
:1935 Author Organization [facility] Address [address] [place] [address] Care Team Providers Name Role Phone Unavailable Primary Care Provider Unavailable Encounter Details Date Type Department Care Team Description 07/24/2016 Hospital Encounter HX [facility] MAQN Berto Lundy M.D. [address] [place] [address] (Wo rk) Social History Tobacco Use Types [...] geriatric Take 1 tablet by 0 01/30/2015 tdqkfhnp-hhwd-uazy tablet mouth daily. simvastatin (ZOCOR) 10 mg [...] KAM RN - 07/24/2016 9:45 CDT [facility] POWERCHART Document Id: [id number] CDT!24 Michelle Tate R.N. - 07/24/2016 9:07 [...] : Yes Jewelry/Piercing Removed : Yes Makeup/Nail Italian Removed : Yes Oral Hygiene : Yes Preop Scrub AM of Surgery : Yes Preop Scrub Night Prior to Surgery : Yes Prosthesis Removed : NA Tampon Removed : NA Verified - No hair products used : Yes Voided diamond finishing supervisor to procedure : Yes Wearing Patient Gown [...] TATE RN - 07/24/2016 9:07 CDT Source: [employer] Document Id: [id number] CDT!79 documented in this encounter Nursing Notes [...] Information Given By : Son Languages : Angolan Is Patient Female and 13-50 no hysterectomy [...] None Behavioral Health Screen/Safety Assmt : No Restorationism Preference : Muslim: Restoration MICHELLE TATE RN - 07/24/2016 9:02 CDT [...] Leon RN - 07/24/2016 9:02 CDT Source: [employer] Document Id: [id number] CDT!50 Nan Anderson R.N. - 07/16/2016 9:12 AM CDT pre-op SDS pre-op phone call and checklist reviewed with pt over the phone. Electronically Signed By: NAN ANDERSON RN On: 07/16/2016 09:13 AM Source: [employer] Document Id: [id number] documented in this encounter OR Notes Op Note - Conversion, Historical Provider Ser - 07/24/2016 2:51 PM CDT [facility] CASE RECORD UPLOAD DATA PATIENT: KAROLINE NUÑEZ SURGERY DATE: 07/24/2016 UNIT #: [id number] ROOM: [address] NBR: [id number] STATUS: In Process DATE: 1935 SIGN. STATUS: [...] -- PAGE : OR02B Anesthesia Staff Anesthesiologist: CERTIFIED DIALYSIS TECHNICIAN: Jaskaran Brannon CERTIFIED DIALYSIS TECHNICIAN SECTION NAME : 1/IntraOp Case Record -- [...] Surgery Start Time: 1054 OR Nurse Initials: [facility] Notes: BRIEFING DONE ALL PARTICIPATED SECTION NAME : 1/IntraOp Case Record -- PAGE : OR06A Case Personnel Requirements Engineer: Marlen Reyna RN Relief Requirements Engineer: SECTION NAME : 1/IntraOp Case Record -- PAGE : ORZane Case Personnel OR Tech: Lin Penny CST Relief OR Tech: SECTION NAME : 1/IntraOp Case Record -- PAGE : ORReyna Case Correctional Officer Sergeant: NONE None Relief Assist: SECTION NAME : [...] Comment: Positioned By: ALCIRA Certified Registered Nurse Beauty Artist RN Registered Nurse Comment: SECTION NAME : [...] Special Equipment Used: EYE Eye Microscope MARIIA [employer] PHACO Phaco Machine Comment: provided by [employer] provided by [employer] Notes: Thermal Unit: Temperature: N/A SECTION NAME [...] Rails Up X2 OR Pt Discharge To: [facility] Care Room: : Time: SECTION [...] #: Serial #: Reference # Location: 1 [id number] RIGHT EYE # Can Inspector: Date: Wasted: 10/10/2020 Notes: Lan L[employer] SECTION NAME : 1/IntraOp Case Record -- PAGE : OR22A Tissue Log A Manager Assurance From Lab to OR: Tissue Description Tissue [...] Delivery Time: Sex: Delivery Assistance: Notes: [facility] Document Id: [id number] Op Note - Jaskaran Pederson CRNA - [...] PEDERSON CRNA On: 07/24/2016 11:06 AM Source: [employer] Document Id: [id number] Op Note - Jaskaran Pederson CRNA - [...] Once. ophthalmic irrigation, intraocular: 500 mL, Irrigation, REFERRAL COORDINATOR. phenylephrine ophthalmic: 1 drop(s), Eye(Operative), PREOP. prednisoLONE [...] PEDERSON CRNA On: 07/24/2016 09:41 AM [facility] Document Id: [id number] documented in this encounter Miscellaneous Notes Miscellaneous [...] TATE RN - 07/24/2016 11:35 CDT [facility] Document Id: [id number] CDT!92 Miscellaneous - Cory, Historical Provider Ser - 07/24/2016 11:35 AM CDT Coding Summary-Paper Based CODING DATE: 07/29/2016 FINAL [facility] STATUS: * Discharged to Home or Self Care PAYOR: Medicare APC DESCRIPTION 5491 Level 1 Intraocular Procedures ADMIT DX: REASON FOR VISIT DX: FINAL DX: PRINCIPAL: H26.9 Unspecified cataract SECONDARY: PYMT PROC APC STAT DESCRIPTION DOCTOR NAME DATE 35012 549 J1 CATARACT REMOVAL BERTO MONCADA MD [...] FAGAN Date Saved: 07/29/2016 03:03 pm Source: [employer] Document Id: [id number] Miscellaneous - Michelle Tate, R.N. - 07/24/2016 [...] TATE RN - 07/24/2016 11:07 CDT Source: [employer] Document Id: [id number] CDT!71 Miscellaneous - Michelle Tate R.N. - 07/24/2016 8:45 AM CDT Height/Length Height/Length Entered On: 07/24/2016 8:46 CDT Performed On: 07/24/2016 8:45 CDT by MICHELLE TATE RN Height/Length Height : 65.7 cm MICHELLE TATE RN - 07/24/2016 8:45 CDT Source: [employer] Document Id: [id number] CDT!3 documented in this encounter Plan of Treatment Not on filedocumented as of this encounter Visit Diagnoses Not on filedocumented in this encounter
--- OUTSIDE RECORDS SUMMARY | 2022-02-21 09:00 | XMS_ITS | Encounter Summary ---
:1935 Author Organization [facility] Address [address] [place] [address] Care Team Providers Name Role Phone Unavailable Primary Care Provider Unavailable Encounter Details Date Type Department Care Team Description 02/04/[address] [facility] NEYMAR KATHERINEDiamond Galaviz APRN, C.N.P. [address] [place] [phone] (Wo rk) Social History Tobacco Use Types [...] geriatric Take 1 tablet by 0 01/30/2015 bayohbsf-avbn-stkj tablet mouth daily. simvastatin (ZOCOR) 10 mg Take 10 mg by 0 015 tablet mouth at bedtime. raNITIdine (ZANTAC) 150 mg 150 mg. 0 5 07/23/2020 tablet documented as of this encounter Progress Notes Shannan Whipple APRN, C.N.P. - 02/04/2015 11:50 AM CDT [id number] CHIEF COMPLAINT/REASON FOR VISIT Cough. HISTORY OF [...] above. PRIMARY CARE PROVIDER: Dr. Ed Belle, [facility]. She did not receive her [...] APRN, C.N.PXenia/pos Electronically Signed By: SHANNAN WHIPPLE AVIATION ELECTRICAL TECHNICIAN On: 02/09/2015 08:17 AM Modified by and Electronically Signed by: SHANNAN WHIPPLE AVIATION ELECTRICAL TECHNICIAN On: 02/09/2015 08:17 AM Source: [facility] MHSDOLBEYNONRADSYS Document Id: [id number] documented in this encounter Nursing Notes Shannan [...] and be dangerous to your health. ?? Eehc-xkj-pxpcian remedies won't shorten the length of the [...] better with fever medication ?? Convulsion ?? [id number] [facility], [address] [place] [address], [place] [address]. All rights reserved. This information is not intended as a substitute for professional medical care. Always follow your healthcare professional's instructions. Source: [facility] POWERCHART Document Id: [id number] Shannan Whipple APRN, C.N.PXenia - 02/04/2015 12:18 PM CDT Ambulatory Patient Education The following Patient Education Materials have been given to the patient: Patient Education Materials: Source: [facility] POWERCHART Document Id: [id number] documented in this encounter Miscellaneous Notes Miscellaneous - Andree Aquino C.M.A. - 02/04/2015 11:57 AM CDT Adult Accelerator Systems Director Intake/History Adult Accelerator Systems Director Intake/History Entered On: 02/04/2015 12:00 CDT Performed [...] Preferred Communication Mode : Verbal Languages : [place] Islander Is Patient Female and 13-50 no hysterectomy [...] cup ANDREE AQUINO 02/04/2015 11:57 CDT Source: [facility] [employer] Document Id: [id number] CDT!37 documented in this encounter Plan of Treatment Not on filedocumented as of this encounter Visit Diagnoses Not on filedocumented in this encounter
--- OUTSIDE RECORDS SUMMARY | 2022-02-21 09:00 | XMS_ITS | Encounter Summary ---
:1935 Author Organization [facility] Address [address] [place] [address] Care Team Providers Name Role Phone Unavailable Primary Care Provider Unavailable Encounter Details Date Type Department Care Team Description 01/06/[address] Encounter [address] [facility] Guido Rao M.D. [address] [place], [place] [phone] (Wo rk) Social History [...] 01/06/2016 2:11 PM CDT ED Depart Summary [facility] Clinical Discharge Summary PERSON INFORMATION Name KAROLINE NUÑEZ Age 80 Years 1935 12:00 AM Sex Female Language Egyptian PCP BRITNEY BALDWIN MD Marital Status Visit Id Visit Reason Chest pain; Shoulder pain-swelling; shoulder pain Specialty Enc Type Emergency Med Service [facility] 01/06/2016 2:11 PM Tracking Id [id number] Checkout 01/06/2016 2:11 PM Checkin 01/06/2016 12:29 PM Acuity 3 -Urgent Dispo Type * Discharged to Home or Self Care Arrival 01/06/2016 12:29 PM Reg Status LOS 000 01:42 Address: [address] [place] [phone] Comment: PROVIDER INFORMATION Provider Role Provider Contact Time GUIDO RAO MD ED Provider 01/06/16 12:33 ABRAHAM PETERSEN MANAGER PROJECT Nurse 01/06/16 13:50 DIAGNOSIS Comment: PATIENT EDUCATION INFORMATION Instructions: CHEST PAIN, NonCardiac Follow up: With: Address: When: BRITNEY NICOLASA [address] [place] [phone] Business (1) Comments: follow up as needed with any questions or concerns Source: [facility] [employer]ART Document Id: [id number] Abraham Petersen, R.N. - 01/06/2016 2:11 PM CDT ED Discharge Instructions [address] [address] Name: KAROLINE NUÑEZ Date of : 1935 12:00 AM Visit Date: 01/06/2016 12:29 PM [facility] Number: [id number] Address: [address] [place] [phone] Primary Care Provider: BRITNEY BALDWIN MD IMPORTANT: [facility] in [place] would like to thank you for allowing us to assistyou with your healthcare needs. The following includes patient education materials and information regarding your injury/illness. Diagnosis: Follow-Up Instructions: With: Address: When: BRITNEY BALDWIN [address] [place] [phone] Business (1) Comments: follow up as needed [...] pain or redness in one leg ?? [id number] [place] [address]. All rights reserved. This information is not [...] if you dont have one. Go to [email or web address] and click on Create Your Account. Then, follow the directions to complete the online form. Youll be asked for your [facility] number which you can find at [...] arrange a ride home with a responsible democrat. SUDHA [place] ALICE ROSE , or responsible democrat have received this information and my questions have been answered. I have discussed any challenges I see with this plan with the nurse or physician. Patient Signature or Responsible Green Party/Relationship Date Time Provider Signature Date Time [...] arrange a ride home with a responsible democrat. SUDHA [place] ALICE ROSE , or responsible democrat have received this information and my questions have been answered. I have discussed any challenges I see with this plan with the nurse or physician. Patient Signature or Responsible Green Party/Relationship Date Time Provider Signature Date Time This document has images extracted. Please consider using [employer] for all your patient education needs. Source: [employer] POWERCHART Document Id: [id number] documented in this encounter Medications at Time of Discharge Medication Sig Dispensed Refills Start Date End Date cholecalciferol (VITAMIN Take 1,000 Units 0 11/14 D3) 1,000 Unit capsule by mouth daily. geriatric Take 1 tablet by 0 01/30/2015 quqocecs-wlwu-xfkf tablet mouth daily. simvastatin (ZOCOR) 10 mg [...] PETERSEN RN - 01/06/2016 14:10 CDT Source: [employer] Document Id: [id number] CDT!11 Abraham Petersen R.N. - 01/06/2016 2:10 [...] 14:10 CDT Source: [facility] POWERCHART Document Id: [id number] CDT!7 Abraham Petersen R.N. - 01/06/2016 2:09 [...] ABRAHAM PETERSEN RN - 01/06/2016 14:09 CDT Morris Coma Eye Opening Response Morris : Spontaneously Best Verbal Response Morris : Oriented Best Motor Response Morris : Obeys simple commands Morris Coma Score : 15 ABRAHAM PETERSEN RN - 01/06/2016 14:09 CDT Behavioral Health Screen/Safety Reassmt Affect/Behavior : Calm, Cooperative, Appropriate ABRAHAM PETERSEN RN - 01/06/2016 14:09 CDT GI Reassess GI Patient Stated Symptoms : None ABRAHAM PETERSEN RN - 01/06/2016 14:09 CDT /OB Reassess Patient Stated Symptoms : None ABRAHAM PETERSEN RN - 01/06/2016 14:09 CDT Source: [employer] Document Id: [id number] CDT!38 Abraham Petersen R.N. - 01/06/2016 1:32 [...] Chest Laterality : Right Intensity : 5 ABRAHAM PETERSEN RN - 01/06/2016 13:32 CDT ABRAHAM PETERSEN RN - 01/06/2016 13:32 CDT Comfort Measures Comfort Measures Grid Positioning : Yes Quiet Environment : Yes ABRAHAM PETERSEN RN - 01/06/2016 13:32 CDT Resp Reassess Respiratory Patient Stated Symptoms : None ABRAHAM PETERSEN RN - 01/06/2016 13:32 CDT Musculoskeletal Reassess Musculoskeletal Note : right shoulder pain ABRAHAM PETERSEN RN - 01/06/2016 13:32 CDT Source: [employer] Document Id: [id number] CDT!21 Guido Rao M.D. - 01/06/2016 12:51 [...] Absolute 3.43 10(9)/L Lymph Absolute 1.95 x10(9)/L [place] Absolute 0.71 x10(9)/L Eos Absolute 0.11 x10(9)/L [...] RAO MD On: 01/06/2016 02:06 PM Source: [facility] POWERCHART Document Id: [id number]} Abraham Petersen RAbimbola - 01/06/2016 12:35 PM [...] PNED ; Probability: 0 ; Diagnosis Code: [id number] Shoulder pain-swelling Date: 01/06/2016 ; Diagnosis Type: Reason For Visit ; Confirmation: Confirmed; Clinical Dx: Shoulder pain-swelling ; Classification: Medical ; Clinical Service: Emergency medicine ; Code: PNED ; Probability: 0 ; Diagnosis Code: [id number] Triage Chief Complaint Description : Pt. presents [...] Private vehicle Track : Medical Languages : Egyptian Vital Signs Assessed : Yes Treatments Prior [...] Heart Rhythm : Regular Skin Color : [place] Skin Description : Dry Skin Temperature : Warm Cardiovascular Detailed Assessment : Yes Monitoring Lead : II Monitoring Lead Supervisor [employer] : Initiated ABRAHAM PETERSEN 01/06/2016 12:58 CDT CV Detailed CV Patient Stated Symptoms : Chest pain Nail Bed Color : [place] Capillary Refill : Less than 2 seconds [...] PETERSEN RN - 01/06/2016 12:58 CDT Source: [employer] Document Id: [id number] CDT!3 documented in this encounter Miscellaneous Notes Miscellaneous - Conversion, Historical Provider Ser - 01/06/2016 2:11 PM CDT Coding Summary-Paper Based CODING DATE: 01/17/2016 FINAL [facility] STATUS: * Discharged to Home or [...] JOHNSON Date Saved: 01/17/2016 01:21 pm Source: [facility] POWERCHART Document Id: [id number] Miscellaneous - Abraham Petersen R.N. - 01/06/2016 2:10 PM CDT Valuables/Belongings Valuables/Belongings Entered On: 01/06/2016 14:10 CDT Performed On: 01/06/2016 14:10 CDT by ABRAHAM PETERSEN RN Valuables/Belongings Belongings Sent Home With : patient ABRAHAM PETERSEN RN - 01/06/2016 14:10 CDT Source: [facility] [employer] Document Id: [id number] CDT!3 Miscellaneous - Abraham Petersen R.N. - [...] Nursing Notes ED Primary Assessment,01/06/16 12:35,ABRAHAM PETERSEN MANAGER PROJECT Nurse Reassess,01/06/16 14:09,ABRAHAM PETERSEN MANAGER PROJECT Nurse Reassess,01/06/16 13:32,ABRAHAM PETERSEN RN [place] Nursing Assessment : Triage and 3-5 nursing assessments [place] Disposition : Discharge Disposition RTF : discharge [place] Total Points with Diagnosis Control : 14 [place] Visit Level : 30073 Level 5 Treatments Prior to Arrival : None ABRAHAM PETERSEN RN - 01/06/2016 14:10 CDT [facility] Document Id: [id number] CDT!19 documented in this encounter Plan of [...] X109L Erythrocytes 4.30 3.90 - POWERCHART 5.03 I3016R Hemoglobin 12.7 12.0 - POWERCHART 15.5 GDL [...] BLOOD ADD-ON Performing Organization Address City/[facility] Phon e Number POWERCHART Troponin T (01/06/2016 12:50 PM CDT) P athologist Signature Troponin T, S <0.010 <=0.010 POWERCHART NGML Comment: Values > or = 0.01 ng/mL have been shown to have prognostic value. Biotin has been identified by the [facility] as a potential interfering [...] (Basic Metabolic Panel) (01/06/2016 12:50 PM CDT) [facility] gist Method Time Signature Sodium, S 140 [...] eGFR 58.1 (L) >=60.0 POWERCHART Black/ MLMINSA Monegasque Glucose 105 70 - 140 POWERCHART MGDL [...] / Volume Laterality 01/06/2016 12:43 PM CDT [facility] - 01/06/2016 12:43 PM CDT [...] MD Procedure Note Provider, Kelechi Rosario - 08/28/2016F ormatting of this note [...] Organization Address City/State/ZIP Code Phon e Number [facility] [address] [place] [phone] documented in this encounter Visit Diagnoses Not on filedocumented in this encounter
--- OUTSIDE RECORDS SUMMARY | 2022-02-21 09:00 | XMS_ITS | Encounter Summary ---
:1935 Author Organization [facility] Address [address] [place] [address] Care Team Providers Name Role Phone Unavailable Primary Care Provider Unavailable Encounter Details Date Type Department Care Team Description 03/02/2015 Hospital Encounter HX [facility] Vinnie Aguilar Jr., M.D. [address] [place], [place] [address] (Wo rk) Social History [...] geriatric Take 1 tablet by 0 01/30/2015 gyxoiodq-spio-unwo tablet mouth daily. simvastatin (ZOCOR) 10 mg Take 10 mg by 0 015 tablet mouth at bedtime. raNITIdine (ZANTAC) 150 mg 150 mg. 0 5 07/23/2020 tablet documented as of this encounter Miscellaneous Notes Miscellaneous - Conversion, Historical Provider Ser - 03/02/2015 11:59 PM PAID INTERN Coding Summary-Paper Based CODING DATE: 03/05/2015 FINAL [facility] STATUS: * Discharged [...] FAGAN Date Saved: 03/05/2015 10:27 am Source: [facility] POWERCHART Document Id: [id number] documented in this encounter Plan of Treatment Not on filedocumented as of this encounter Procedures Procedure Name Priority Date/Time Associated Diagnosis Comme nts BI BREAST SCREENING Routine 03/02/2015 10:00 AM R esults for this BILATERAL PAID INTERN procedure are i n the results section. documented in this encounter Results BI Breast Screening Bilateral (03/02/2015 10:00 AM PAID INTERN) Anatomical Region Laterality Modality Breast Bilateral Mammography Specimen (Source) Anatomical Collection Method Collection Time Re ceived Time Location / / Volume Laterality 03/02/2015 10:00 AM PAID INTERN Addenda Addendum by Provider, Kelechi Rosario 03/02/2015 10:00 AM PAID INTERN RAD^^^MA MA Mammo Screening w/ CADD 03/02/2015 10:00:00 Impressions 03/02/2015 10:37 AM PAID INTERN BI-RADS 1. ??NEGATIVE. RECOMMENDATION: Routine yearly mammogram . BREAST MAMMOGRAPHY - GENERAL OBSERVATION S: ??The false negative rate for mammography is 15-20%. ??It cannot b e used, therefore, to replace the regular physical examination. ??A no rmal or noncontributory mammogram report also should not deter t he aggressive further workup of any suspected palpable masses. Narrative 03/02/2015 10:37 AM PAID INTERN Bilateral digital screening Mammography with computer-aided detection, [...]
--- OUTSIDE RECORDS SUMMARY | 2022-02-21 09:00 | XMS_ITS | Encounter Summary ---
:1935 Author Organization [facility] Address [address] [place] [address] Care Team Providers Name Role Phone Barbra Ryder M.D., Britney Vasquez Primary Care Provider Encounter Details Date Type Department Care Team Description 11/10/2016 Hospital Encounter HX [facility] MAQN ED Guido Rao M.D. [address] [place], [place] [phone] (Wo rk) Social History [...] 11/10/2016 5:14 AM CDT ED Depart Summary [facility] Emergency Department Clinical Discharge Summary PERSON INFORMATION Name KAROLINE NUÑEZ Age 80 Years 1935 12:00 AM Sex Female Language Sinhala PCP BRITNEY BALDWIN MD Marital Status Visit Id Visit Reason Rib/trunk pain-swelling; ABD PAIN Specialty Enc Type Emergency Med Service Emergency Medicine Referred by Track Group MAQN ED Discharge 11/10/2016 5:05 AM Tracking Id [id number] Checkout 11/10/2016 5:05 AM Checkin 11/10/2016 3:56 AM Acuity 3 -Urgent Dispo Type * Discharged to Home or Self Care Arrival 11/10/2016 3:56 AM Reg Status LOS 000 01:09 Address: [address] [place] [address] [phone] Comment: PROVIDER INFORMATION Provider Role Provider Contact Time SANGEETHA MORALES TELECOMMUNICATIONS TECHNICIAN Nurse 11/10/16 04:08 GUIDO RAO MD ED Provider 11/10/16 04:20 DIAGNOSIS Comment: PATIENT EDUCATION INFORMATION Instructions: CHEST WALL STRAIN Follow up: With: Address: When: BRITNEY BALDWIN [address] [place] [phone] Business (1) Within 3 - 5days [facility] POWERCHART Document Id: [id number] Sangeetha Morales R.N. - 11/10/2016 5:14 AM CDT ED Discharge Instructions [address] [address] Name: KAROLINE NUÑEZ Date of : 1935 12:00 AM Visit Date: 11/10/2016 3:[address] [facility] Number: [id number] Address: [address] [place] [address] [phone] Primary Care Provider: BRITNEY BALDWIN MD IMPORTANT: [facility] in [place] would like to thank you for allowing us to assistyou with your healthcare needs. The following includes patient education materials and information regarding your injury/illness. Diagnosis: Follow-Up Instructions: With: Address: When: BRITNEY BALDWIN [address] [place] [phone] Business (1) Within 3 - 5days Your [...] as directed by your healthcare provider ?? [phone] [place] [address]. All rights reserved. This information is not [...] if you dont have one. Go to [email or web address] and click on Create Your Account. Then, follow the directions to complete the online form. Youll be asked for your [facility] number which you can find at the [...] arrange a ride home with a responsible constitution party. ISUDHA ALICE ROSE , or responsible constitution party have received this information and my [...] arrange a ride home with a responsible constitution party. SUDHA [place] ALICE ROSE , or responsible constitution party have received this information and my questions have been answered. I have discussed any challenges I see with this plan with the nurse or physician. Patient Signature or Responsible Green Party/Relationship Date Time Provider Signature Date Time This document has images extracted. Please consider using [employer] for all your patient education needs. Source: [facility] POWERCHART Document Id: [id number] Sangeetha Morales R.N. - 11/10/2016 5:12 AM [...] MORALES RN - 11/10/2016 5:12 CDT Source: [employer] Document Id: [id number] CDT!9 documented in this encounter Medications at Time of Discharge Medication Sig Dispensed Refills Start Date End Date cholecalciferol (VITAMIN Take 1,000 Units by 0 D3) 1,000 Unit capsule mouth daily. geriatric Take 1 tablet by 0 01/30/2015 jaxszuzy-lmxz-xegt tablet mouth daily. simvastatin (ZOCOR) 10 mg [...] MORALES RN - 11/10/2016 5:12 CDT Source: [facility] Meeps Document Id: [id number] CDT!10 Guido Rao M.D. - 11/10/2016 4:33 [...] at 09:29 CDT.. Surgical history: Cataract extraction ([id number]) on 07/24/2016 at 80 Years. Comments: 08/19/2016 14:50 - CHANO ANDERSON RN left eye Cholecystectomy ([id number]). Lumpectomy (0357510406). Appendectomy (768160174). Colonoscopy ([id number]). Comments: 06/17/2016 10:03 - CHANO MO RN 2010 Mammogram ([id number]). Comments: 06/17/2016 10:03 - CHANO MO RN 2015 Tonsillectomy ([id number]). Bunionectomy ([id number]).. Family history: Myocardial infarction Son CVA - [...] Stable. Disposition: Discharged: to home. Prescriptions: Prescription [employer] Trans[employer] Analyst Pharmacy: Ultram 50 mg oral tablet (Prescribe): [...] RAO MD On: 11/10/2016 05:27 AM Source: [facility] [employer]ART Document Id: [id number]} Sangeetha Morales R.N. - 11/10/2016 4:00 AM [...] Contributor System: PowerChart ; LastUpdated: 06/17/2016 9:51 HYDROELECTRIC PLANT MAINTAINER ; Life Cycle Date: 06/17/2016 ; Life Cycle Status: Active ; ResponsibleProvider: CHANO MO RN; Vocabulary: ICD-10-CM Arthritis Inflammatory (ICD-10-CM :M06.4 ) Name of Problem: Arthritis Inflammatory ; Recorder: CHANO MO RN; Confirmation: Confirmed ; Classification: Nursing ; Code: M06.4 ; Contributor System: PowerChart ; Last Updated: 06/17/2016 9:57 HY[employer]OELECT[employer]ANT MAINTAINER ; Life Cycle Date: 06/17/2016 ; Life Cycle Status: Active ; Responsible Provider: CHANO MO RN; Vocabulary: ICD-10-CM Cerumen Impacted NOS (ICD-10-CM :H61.20 ) Name of Problem: Cerumen Impacted NOS ; Recorder: CHANO MO RN; Confirmation: Confirmed ; Classification: Nursing ; Code: H61.20 ; Contributor System: PowerChart ; Last Updated: 06/17/2016 9:56 HY[employer]OELECT[employer]ANT MAINTAINER ; Life Cycle Date: 06/17/2016 ; Life Cycle Status: Active; Responsible Provider: CHANO MO RN; Vocabulary: ICD-10-CM Cervical Disc Disorder With Myelopathy (ICD-10-CM :M50.00 ) Name of Problem: Cervical Disc Disorder With Myelopathy ; Recorder: CHANO MO RN; Confirmation: Confirmed ; Classification: Nursing ; Code: M50.00 ; Contributor System: PowerChart ; Last Updated: 06/17/2016 9:49 HYDROELECT[employer]ANT MAINTAINER ; Life Cycle Date: 10/2016 ; Life Cycle Status: Active ; Responsible Provider: CHANO MO RN; Vocabulary: ICD-10-CM Chronic Kidney Disease (CKD) Stage 3 GFR 30-59 (ICD-10-CM :N18.3 ) Name of Problem: Chronic Kidney Disease (CKD) Stage 3 GFR 30-59 ; Recorder: CHANO MO RN; Confirmation: Confirmed ; Classification: Nursing ; Code: N18.3 ; Contributor System: PowerChart ; Last Updated: 06/17/2016 9:56 HYDROELECTRIC PLANT MAINTAINER ; Life Cycle Date: 06/17/2016 ; Life [...] System: PowerChart ; Last Updated: 06/17/2016 9:54 HYDROELECTRIC PLANT MAINTAINER ; Life Cycle Date: 06/17/2016 ; Life [...] System: PowerChart ; Last Updated: 06/17/2016 9:54 HYDROELECTRIC PLANT MAINTAINER ; Life Cycle Date: 06/17/2016 ; Life Cycle Status: Active ; Responsible Provider: CHANO MO RN; Vocabulary: ICD-10-CM Hyperlipidemia Mixed (ICD-10-CM :E78.2 ) Name of Problem: Hyperlipidemia Mixed ; Recorder: CHANO MO RN; Confirmation: Confirmed ; Classification: Nursing ; Code: E78.2 ; Contributor System: PowerChart ; Last Updated: 06/17/2016 9:56 HYDROELECT[employer]IC PLANT MAINTAINER ; Life Cycle Date: 06/17/2016 ; Life [...] System: PowerChart ; Last Updated: 06/17/2016 9:50 HYDROELECTRIC PLANT MAINTAINER ; Life Cycle Date: 06/17/2016 ; Life Cycle Status: Active ; Responsible Provider: CHANO MO RN; Vocabulary: ICD-10-CM Osteoporosis NOS (ICD-10-CM :M81.0 ) Name of Problem: Osteoporosis NOS ; Recorder: CHANO MO RN; Confirmation: Confirmed ; Classification: Nursing ; Code: M81.0 ; Contributor System: PowerChart ; Last Updated: 06/17/2016 9:51 HYDROELECTRIC PLANT MAINTAINER ; Life Cycle Date: 06/17/2016 ; Life Cycle Status: Active ; Responsible Provider: CHANO MO RN; Vocabulary: ICD-10-CM Pain Back NOS (ICD-10-CM :M54.9 ) Name of Problem: Pain Back NOS ; Recorder: CHANO MO RN; Confirmation: Confirmed ; Classification: Nursing ; Code: M54.9 ; Contributor System: PowerChart ; Last Updated: 06/17/2016 9:55 HYDROELECTRIC PLANT MAINTAINER ; Life Cycle Date: 06/17/2016 ; Life Cycle Status: Active ; Responsible Provider: CHANO MO RN; Vocabulary: ICD-10-CM Pain Musculoskeletal NOS (ICD-10-CM :M79.1 ) Name of Problem: Pain Musculoskeletal NOS ; Recorder: CHANO MO RN; Confirmation: Confirmed ; Classification: Nursing ; Code: M79.1 ; Contributor System: PowerChart ; Last Updated: 06/17/2016 9:54 HYDROELECTRIC PLANT MAINTAINER ; Life Cycle Date: 06/17/2016 ; Life Cycle Status: Active ; Responsible Provider: MO, CHANO M RN; Vocabulary: ICD-10-CM Rash NOS (ICD-10-CM :R21 ) Name of Problem: Rash NOS ; Recorder: CHANO MO RN; Confirmation: Confirmed ; Classification: Nursing ; Code: R21 ; Contributor System: PowerChart ; Last Updated: 06/17/2016 9:57 HYDROELECTRIC PLANT MAINTAINER ; Life Cycle Date: 06/17/2016 ; Life [...] System: PowerChart ; Last Updated: 06/17/2016 9:52 HYDROELECTRIC PLANT MAINTAINER ; Life Cycle Date: 06/17/2016 ; Life Cycle Status: Active ; Responsible Provider: CHANO MO RN; Vocabulary: ICD-10-CM Venous Disease (ICD-10-CM :I87.9 ) Name of Problem: Venous Disease ; Recorder: CHANO MO RN; Confirmation: Confirmed ; Classification: Nursing ; Code: I87.9 ; Contributor System: PowerChart ; LastUpdated: 06/17/2016 9:53 HYDROELECTRIC PLANT MAINTAINER ; Life Cycle Date: 06/17/2016 ; Life Cycle Status: Active ; ResponsibleProvider: CHANO MO RN; Vocabulary: ICD-10-CM Diagnoses(Active) Rib/trunk pain-swelling Date: 11/10/2016 ; Diagnosis Type: Reason For Visit ; Confirmation: Complaint of ; Clinical Dx: Rib/trunk pain-swelling ; Classification: Medical ; Clinical Service: Emergency medicine ; Code: PNED ; Probability: 0 ; Diagnosis Code: [id number] Triage Chief Complaint Description : was reaching up in cupboard on thursday and sharp pain started left mid-rib cage. No matter what postion she moves in- it hurts. Information Given By : Patient, Son Present in Room During Exam/Procedure : Son Mode of Arrival ED : Private vehicle Track : Medical Languages : Sinhala Patient Informed of Triage Location : Emergency [...] Reactions: rash ; Created By: GAGAN TRAN HEAD OF LOSS PREVENTION; Reaction Status: Active ; Category: Drug ; Substance: zinc acetate containing compounds ; Type: Allergy ; Updated By: GAGAN TRAN HEAD OF LOSS PREVENTION; Reviewed Date: 11/10/2016 4:06 CDT ID Screen [...] MORALES RN - 11/10/2016 4:00 CDT Source: [employer] Document Id: [id number] CDT!119 documented in this encounter Miscellaneous Notes [...] MORALES RN - 11/10/2016 5:13 CDT Source: [employer] Document Id: [id number] CDT!5 Miscellaneous - Sangeetha Morales R.N. - [...] MORALES RN - 11/10/2016 5:13 CDT Source: [employer] Document Id: [id number] CDT!11 Miscellaneous - Conversion, Historical Provider Ser - 11/10/2016 5:05 AM CDT Coding Summary-Paper Based CODING DATE: 11/19/2016 FINAL [facility] STATUS: * Discharged to Home [...] VERA Date Saved: 11/19/2016 08:40 am Source: [employer] Document Id: [id number] documented in this encounter Plan of Treatment [...] on filedocumented in this encounter Care Teams Costing Manager Relationship Specialty Start Date End Date Britney Baldwin Jr., M.D. PCP - General 09/25/16 02/24/[address] [place] [address] documented as of this encounter
--- OUTSIDE RECORDS SUMMARY | 2022-02-21 09:00 | XMS_ITS | Encounter Summary ---
:1935 Author Organization [facility] Address [address] [place] [address] Care Team Providers Name Role Phone Unavailable Primary Care Provider Unavailable Encounter Details Date Type Department Care Team Description 10/24/2014 - Hospital Encounter HX [facility] MED/SURG Jose Daniel Belle, 10/29/2014 Kelechi [address] [place] [id number] Social History Tobacco Use Types Packs/Day Years [...] 10/29/2014 10:09 AM CDT Hospital Discharge Instructions [facility] [address] [place], [place] [id number] Patient Discharge Instructions Name: KAROLINE NUÑEZ Current Date: 10/29/2014 10:09:01 : 1935 12:00 AM [facility] Number: [id number] Patient Address: [address] [place] [phone] Patient Primary Care Provider: Name: BRITNEY BELLE MD Discharge Diagnosis: [facility] in [place] would like to thank you for allowing [...] appointment on Thursday morning. Dr. Dent in [place]. Within As Soon As Possible Comments: With: Address: When: JOSE DANIELTERRENCE BELLE [address] [place] [phone] Business (1) In 9 days 11/06/2014 Comments: Call for follow up appointment [phone] Dr. Ward Discharge Diet Diet Type: Other [...] a day New Routed to [facility] [address] [place] [address] aspirin (aspirin 81 mg oral delayed release tablet) 1 Tablet(s), Oral, once a day cholecalciferol (Vitamin D3 1000 intl units oral tablet) 1 Tablet(s), Oral, once a day ciprofloxacin (Cipro 500 mg oral tablet) 1 Tablet(s), Oral, two times a day x 7 day(s) [facility] [address] [place], [place] [id number] ferrous gluconate (ferrous gluconate 325 mg (36 mg elemental iron) oral tablet) 1 Tablet(s), Oral, two times a day This is a CHANGE Routed to [facility] [address] [place] [address] multivitamin with minerals (Centrum Silver Women's oral tablet) orphenadrine (orphenadrine 100 mg oral tablet, extended release) 1 Tablet(s), Oral, as needed raloxifene (raloxifene 60 mg oral tablet) 1 Tablet(s), Oral, once a day ranitidine (ranitidine 150 mg oral tablet) 1 Tablet(s), Oral, once a day (at bedtime) New Routed to [facility] [address] [place] [address] saccharomyces boulardii lyo (saccharomyces boulardii lyo 250 mg oral capsule) 1 cap, Oral, two timesa day simvastatin (simvastatin 10 mg oral tablet) 1 Tablet(s), Oral, once a day (at bedtime) Routed to [facility] [address] [place] [address] traZODone (traZODone 50 mg oral [...] if you dont have one. Go to [email or web address] and click on Create Your Account. Then, follow the directions to complete the online form. Youll be asked for your [facility] number which you can find at [...] how most CAPD patients receive it. ?? [id number] [facility], [address] [place] [address], [place] [address]. All rights reserved. This information is not [...] or passing red or black-colored stool ?? [facility], [address] [place] [address]. All rights reserved. This information is not [...] also include oxygen and intravenous fluids. ?? [facility], [address] [place] [address]. All rights reserved. This information is not [...] in the labia (outer vaginal area) ?? 9961-1357 [facility], [address] [place] [address], [place] [address]. All rights reserved. This information is not [...] Extreme drowsiness, confusion, dizziness or fainting ?? 7680-4832 [facility], [address] [place] [address], [place] [address]. All rights reserved. This information is not [...] be at increased risk if you are -Citizen Of [place], , ,, or . Signs and symptoms [...] any illicit drugs you may use. ?? 9510-6111 [facility], [address] [place] [address], [place] [address]. All rights reserved. This information is not [...] beer, cola drinks, and dairy products. ?? 7915-8224 [facility], [address] [place] [address], [place] [address]. All rights reserved. This information is not intended as a substitute for professional medical care. Always follow your healthcare professional's instructions. This document has images extracted. Please consider using [employer] for all your patient education needs. Source: [facility] POWERCHART Document Id: [id number] Conversion, Historical Provider Ser - 10/29/2014 10:09 AM CDT Hospital Discharge Medication List [place] [address] [place] [address] Discharge Medication List Name: KAROLINE NUÑEZ Current Date: 10/29/2014 10:08:59 : 1935 12:00 AM [facility] Number: [id number] Patient Address: [address] [place] [phone] Patient Primary Care Provider: Name: BRITNEY BELLE MD Discharge Diagnosis: [facility] in [place] would like to thank you for allowing us to assist you with your healthcare needs. The following includes patient education materials and information regarding your injury/illness. Medications Medication/Strength How to Take Indications/Special Instructions/Comments/Notes for Patient Medication Changes/Routing ascorbic acid (ascorbic acid 500 mg oral tablet) 1 Tablet(s), Oral, two times a day [facility] [address] [place] [address] aspirin (aspirin 81 mg oral delayed release tablet) 1 Tablet(s), Oral, once a day cholecalciferol (Vitamin D3 1000 intl units oral tablet) 1 Tablet(s), Oral, once a day ciprofloxacin (Cipro 500 mg oral tablet) 1 Tablet(s), Oral, two times a day x 7 day(s) [facility] [address] [place] [address] ferrous gluconate (ferrous gluconate 325 mg (36 mg elemental iron) oral tablet) 1 Tablet(s), Oral, two times a day This is a CHANGE Routed to [facility] [address] [place] [address] multivitamin with minerals (Centrum Silver Women's oral tablet) orphenadrine (orphenadrine 100 mg oral tablet, extended release) 1 Tablet(s), Oral, as needed raloxifene (raloxifene 60 mg oral tablet) 1 Tablet(s), Oral, once a day ranitidine (ranitidine 150 mg oral tablet) 1 Tablet(s), Oral, once a day (at bedtime) New Routed to [facility] [address] [place] [address] saccharomyces boulardii lyo (saccharomyces boulardii lyo 250 mg oral capsule) 1 cap, Oral, two timesa day simvastatin (simvastatin 10 mg oral tablet) 1 Tablet(s), Oral, once a day (at bedtime) Routed to [facility] [address] [place] [address] traZODone (traZODone 50 mg oral [...] DANIEL BELLE MD Signed On:28-OCT-2014 14:21:02 Source: [facility] POWERCHART Document Id: [id number] Conversion, Historical Provider Ser - 10/29/2014 8:55 [...] RAMIREZ RN - 10/29/2014 9:56 CDT Source: [facility] Music NationCHART Document Id: [id number] CDT!15 Gume Cooley, RXeniaN. - 10/29/2014 8:01 AM CDT Discharge Summary [...] back, Verbalizes understanding GUME COOLEY RN - 10/29/2014 8:01 CDT Valuables/Belongings Home Medication Disposition : None brought in with patient LAFONZO ECHAVARRIAGUME CONNORS RN - 10/29/2014 8:01 CDT Source: [employer] POWERCHART Document Id: [id number] CDT!20 Jose Daniel Belle M.D. - 10/29/2014 12:00 AM CDT [id number] REVISION HISTORY 11/02/2014 at 8:02 am - [...] [place]phrology, [place] [facility] [place]. The patient did have a chest [...] Jose Daniel Belle in 9 days at [facility]. The patient is to call the clinic [...] 24-HOUR PHONE NUMBER OF HOSPITAL PHYSICIAN RECORDS: Dr. Jose Daniel rFance, . Jose Daniel Belle M.D./pos Electronically Signed By: JOSE DANIEL BELLE MD On: 10/30/2014 04:17 PM Jose Daniel Belle M.D./dw Electronically Signed By: JOSE DANIEL BELLE MD On: 10/30/2014 04:17 PM Co-Signed By: JOSE DANIEL BELLE MD On: 11/02/2014 05:12 PM Source: [facility] MHSDOLBEYNONRADSYS Document Id: [id number] documented in this encounter Medications at Time of Discharge Medication Sig Dispensed Refills Start Date End Date simvastatin (ZOCOR) 10 mg Take 10 mg by mouth 0 0 10/28/2014 tablet at bedtime. raNITIdine (ZANTAC) 150 mg 150 mg. 0 5 07/23/2020 tablet documented as of this encounter Progress Notes Jose Daniel Belle M.D. - 10/28/2014 12:00 AM CDT [id number] ATTENDING PHYSICIAN: Dr. Jose Daniel Belle. ALLERGIES: [...] BELLE MD On: 10/29/2014 07:15 AM Source: [facility] MHSDOLBEYNONRADSYS Document Id: [id number] Jose Daniel Belle M.D. - 10/27/2014 12:00 AM CDT [id number] Swing bed status SUBJECTIVE: Patient having 5 [...] BELLE MD On: 10/27/2014 12:53 PM Source: [facility] MHSDOLBEYNONRADSYS Document Id: [id number] Krystyna Gross - 10/26/2014 11:10 AM CDT SSA Social Work Assessment inpatient REFERRAL SOURCE Automatic PURPOSE OF VISIT REASON FOR ASSESSMENT TCU admission PERSONS INTERVIEWED pt REASON FOR VISIT Urosepsis HISTORY OF PRESENT ILLNESS Pt is a 78 year old female who resides independently in [place], [place]. She said she had been feeling [...] is retired FINANCIAL Pt has Medicare and [employer] for insurance. Pt has 20 full and 80 co insurance days available. Pt does not identify any financial concerns at this time. COMMUNITY RESOURCES / SUPPORT SYSTEM No formal supports in place. Her daughters help her clean a few times a month and her son helps her with her medication when needed. SPIRITUALITY / SABIANIST / CULTURE Pt is Mormonism LEGAL Per EMR, pt is DNR and [...] Provided information on the role of the social media executive. PLAN 1. Pt will continue on IV antibiotics and then plans to DC home when those are complete. 2. SW will continue to follow and assist as needed. 3. A list of agencies within the area that patient/family geographically resides or requests has been provided to and reviewed with patient/family. Disclosure of [employer] financial interest in [facility] ([facility]) was provided to and acknowledged by patient/family. [...] KRYSTYNA GROSS On: 10/26/2014 11:11 AM Source: [employer] Document Id: [id number] Krystyna Gross - 10/25/2014 3:37 PM CDT attempted visit SW attempted 4x to meet with the pt today and pt had various company. Will try to see pt tomorrow to complete assessemtn. Electronically Signed By: KRYSTYNA GROSS On: 10/25/2014 03:38 PM Source: [employer] Document Id: [id number] Gloria Ortiz P.Regis. - 10/25/2014 11:03 AM [...] ORTIZ PT On: 10/25/2014 11:04 AM Source: [employer] Document Id: [id number] documented in this encounter Procedure Notes Rajan [...] CARL RN - 10/27/2014 16:18 CDT Source: [employer] Document Id: [id number] CDT!24 Jaskaran Baires CRNA - 10/24/2014 4:04 [...] BAIRES CRNA - 10/24/2014 16:04 CDT Source: [employer] Document Id: [id number] CDT!16 documented in this encounter Consult Yara Mendoza, Pharm.D. - 10/24/2014 11:34 AM CDT Pharmacy [...] ALEJO PharmD - 10/24/2014 11:34 CDT Source: [employer] Document Id: [id number] CDT!7 documented in this encounter Nursing Notes Conversion, Historical Provider Ser - 10/28/2014 3:12 PM CDT Patient went out on pass at 14:40 with family. Left PIV wrapped to protect site.Patient understandsto return. Electronically Signed By: LUIZ CINTRON, INBOX [id number] On: 09/21/2015 02:56 PM Co-Signed By: LUIZ CINTRON, INBOX [id number] On: 09/21/2015 02:56 PM Electronically Signed by Proxy by: MIKE TRAN [facility] Document Id: [id number] Amari Gallo, R.N. - 10/26/2014 2:15 PM [...] GALLO RN - 10/26/2014 15:29 CDT Source: [employer] Document Id: [id number] CDT!10 Leti Matthews RDN, FERNIE - 10/25/2014 [...] ESPINAL RDN - 10/25/2014 13:35 CDT Source: [employer] Document Id: [id number] CDT!6 Elsi Cook RXeniaNXenia - 10/24/2014 9:27 AM CDT Protocol Vascular Access Adult Protocol Vascular Access Adult Entered On: 10/24/2014 9:27 CDT Performed On: 10/24/2014 9:27 CDT by ELSI COOK commercial title examiner Access Adult Protocol Age 15 years or older Adult Protocol : Yes Vascular Access Device Adult : Yes Exclusion Criteria Adult Vascular Access Protocol : Patient has none of the below exclusions Vascular Access Protocol Status Adult : Criteria Met ELSI COOK RN - 10/24/2014 9:27 CDT Source: [employer] Document Id: [id number] CDT!6 Charissa Erwin R.N. - 10/24/2014 8:16 AM CDT Cardiac Monitoring Cardiac Monitoring Entered On: 10/24/2014 10:44 CDT Performed On: 10/24/2014 8:16 CDT by CHARISSA ERWIN RN Cardiac Monitoring Monitoring Lead : II Monitoring Lead Maintenance Mechanic Supervisor : Discontinued Atrial Rate : 76 bpm Atrial Rhythm : Regular Ventricular Rate : 76 bpm Ventricular Rhythm : Regular LA Interval : 0.13 P to QRS Ratio : 1:1 QRS Duration : 0.12 second(s) QT Interval : 0.36 second(s) LA Consistency : Consistent QRS Consistency : Consistent ST Segment : Isoelectric Ectopy Frequency : None Cardiac Rhythm Tech : Sinus rhythm CHARISSA ERWIN RN - 10/24/2014 10:41 CDT Source: [employer] Document Id: [id number] CDT!17 Charissa Erwin R.N. - 10/24/2014 8:09 AM CDT Cardiac Monitoring Cardiac Monitoring Entered On: 10/24/2014 10:41 CDT Performed On: 10/24/2014 8:09 CDT by CHARISSA ERWIN RN Cardiac Monitoring Monitoring Lead : II Monitoring Lead Maintenance Mechanic Supervisor : Other: continued Atrial Rate : 78 bpm Atrial Rhythm : Regular Ventricular Rate : 78 bpm Ventricular Rhythm : Regular LA Interval : 0.14 P to QRS Ratio : 1:1 QRS Duration : 0.09 second(s) QT Interval : 0.36 second(s) LA Consistency : Consistent QRS Consistency : Consistent ST Segment : Isoelectric Ectopy Frequency : Rare (1-3/min) Cardiac Rhythm Tech : Sinus rhythm, PVC CHARISSA ERWIN RN - 10/24/2014 10:39 CDT Source: [employer] Document Id: [id number] CDT!17 Tej Buckner - 10/23/2014 11:30 PM CDT Cardiac Monitoring Cardiac Monitoring Entered On: 10/23/2014 23:31 CDT Performed On: 10/23/2014 23:30 CDT by TEJ BUCKNER Cardiac Monitoring Monitoring Lead : II, V1/MCL1 Ventricular Rate : 75 bpm Ventricular Rhythm : Regular LA Interval : 0.19 QRS Duration : 0.08 second(s) QT Interval : 0.34 second(s) LA Consistency : Consistent QRS Consistency : Consistent ST Segment : Isoelectric Cardiac Rhythm Tech : Sinus rhythm TEJ BUCKNER - 10/23/2014 23:30 CDT Source: [employer] Document Id: [id number] CDT!12 documented in this encounter OR Notes Op Note - Jaskaran Baires CRNA - 10/24/2014 4:01 PM CDT Anesthesia - Difficult IV Placement Difficult IV Start Time:[id number] Cole Belle Requested to [...] BAIRES CRNA On: 10/24/2014 04:02 PM Source: [employer] Document Id: [id number] documented in this encounter Miscellaneous Notes Miscellaneous - Conversion, Historical Provider Ser - 10/29/2014 8:55 AM CDT Coding Summary-Paper Based CODING DATE: 11/01/[address] [facility] STATUS: * Discharged to Home or Self Care PAYOR: Medicare Grouper: 945 MS-DRG Rehabilitation w CC/CUSTODIAL ADMIT DX: V57.1 Care Involving Other Physical [...] DICK Date Saved: 11/01/2014 02:05 pm Source: [facility] Document Id: [id number] Miscellaneous - Conversion, Historical Provider Ser - [...] Yes/No : No Nail Bed Color : [place] Capillary Refill : Less than 2 seconds Edema Assessment : No WIN RAMIREZ 10/29/2014 9:58 CDT Radial Pulse, Left : 2+ Normal Radial Pulse, Right : 2+ Normal WIN RAMIREZ 10/29/2014 9:58 CDT Skin Color : Normal for ethnicity Skin Description : Dry Skin Temperature : Warm Activity Tolerance : Without distress WIN RAMIREZ 10/29/2014 9:58 CDT Neurological Neuro Patient Stated Symptoms : None Orientation : Oriented x 3 Level of Consciousness : Alert Gait : Steady WIN RAMIREZ - 10/29/2014 9:58 CDT [place] Coma Eye Opening Response [place] : Spontaneously Best Verbal Response Marine : Oriented Best Motor Response Marine : Obeys simple commands [place] Coma Score : 15 WIN RAMIREZ 10/29/2014 [...] Feeding Ability : Complete independence WIN RAMIREZ 10/29/2014 9:58 CDT Genitourinary Patient Stated Symptoms : None Urinary Elimination : Voiding, no difficulties WIN RAMIREZ 10/29/2014 9:58 CDT Integumentary Integumentary Patient Stated Symptoms : Bruising Skin Turgor : Elastic Skin Integrity : Intact Mucous Membrane Color : [place] Mucous Membrane Description : Moist WIN RAMIREZ [...] RAMIREZ RN - 10/29/2014 9:58 CDT WIN RAMIERZ RN - 10/29/2014 9:58 CDT Hendrich II [...] : Explanation Teaching Evaluation : Verbalizes understanding DEJA RAMIREZJaspreet Johnston RN - 10/29/2014 9:58 CDT Source: [facility] Document Id: [id number] CDT!128 Jarod - Gume Cooley R.N. - 10/29/2014 8:01 AM CDT Valuables/Belongings Valuables/Belongings Entered On: 10/29/2014 8:01 CDT Performed On: 10/29/2014 8:01 CDT by GUME COOLEY RN Valuables/Belongings Home Medication Disposition : None brought in with patient GUME COOLEY RN - 10/29/2014 8:01 CDT Source: [facility] Document Id: [id number] CDT!3 Miscellaneous - Pema Buckner R.N. - [...] PEMA BUCKNER DEONNA - 10/28/2014 23:39 CDT [place] Coma Eye Opening Response [place] : Spontaneously Best Verbal Response [place] : Oriented Best Motor Response [place] : Obeys simple commands [place] Coma Score : 15 PEMA BUCKNER - 10/28/2014 23:39 CDT Psycho/Emotional Affect/Behavior : Calm, Cooperative Pain Symptoms : No PEMA BUCKNER DEONNA - 10/28/2014 23:39 CDT Coping Grid Identifies effective strategies : Yes Uses effective strategies : Yes Behaviors indicate use of coping mechanism : Yes Family supportive and involved in care : Yes PEMA BUCKNER Preston YING - 10/28/2014 23:39 CDT Safety Grid Vision, [...] Right Abnormality : Bruising Bruising PEMA BUCKNER Preston YING - 10/28/2014 23:39 CDT PEMA BUCKNER Preston - 10/28/2014 23:39 CDT PEMA BUCKNER Preston - 10/28/2014 23:39 CDT Skin Color : Normal for ethnicity PEMA BUCKNER Preston YING - 10/28/2014 23:39 CDT Shawn Sensory Perception Shawn : No impairment Moisture Shawn : Rarely moist Activity Shawn : Walks frequently Mobility Shawn : No limitations Nutrition Shawn : Excellent Friction and Shear Shawn : No apparent problem Shawn Score : 23 SITAIRENEMAVERICK Johnston RN - 10/28/2014 23:39 CDT Peripheral IV Peripheral [...] BUCKNER RN - 10/28/2014 23:39 CDT Source: [employer] Document Id: [id number] CDT!112 Miscellaneous - Nabeel Patton - 10/28/2014 [...] NABEEL PATTON - 10/28/2014 11:24 CDT Source: [facility] POWERCHART Document Id: [id number] CDT!6 Miscellaneous - Conversion, Historical Provider Ser [...] Yes/No : No Nail Bed Color : [place] Capillary Refill : Less than 2 seconds [...] WIN RAMIREZ RN - 10/28/2014 10:11 CDT [place] Coma Eye Opening Response Marine : Spontaneously Best Verbal Response Marine : Oriented Best Motor Response [place] : Obeys simple commands [place] Coma Score : 15 WIN RAMIREZ RN [...] Last Date : 10/27/2014 CDT WIN RAMIREZ RN - 10/28/2014 10:11 CDT Nutrition Home Diet : Regular Appetite : Good WIN RAMIREZ RN - 10/28/2014 10:11 CDT Genitourinary Patient Stated Symptoms : None Urinary Elimination : Voiding, no difficulties Urine Color : Yellow Urine Description : Clear WIN RAMIREZ - 10/28/2014 10:11 CDT Integumentary Integumentary Patient Stated Symptoms : Bruising Skin Turgor : Elastic Skin Integrity : Intact Mucous Membrane Color : [place] Mucous Membrane Description : Moist WIN RAMIREZ - 10/28/2014 10:11 CDT Skin Abnormality/Location Grid Location : Abdomen Hand Lower arm Laterality : Left, Right Left, Right Right Abnormality : Bruising Bruising Bruising WIN RAMIREZ RN - 10/28/2014 10:11 CDT WIN RAMIREZ - 10/28/2014 10:11 CDT [...] CDT Secondary Tubing Changed : 10/26/2014 CDT DEJA RAMIREZJaspreet Johnston RN - 10/28/2014 10:11 CDT JAMES WIN Preston - 10/28/2014 10:11 CDT Hendrich II Fall Risk [...] RAMIREZ RN - 10/28/2014 10:11 CDT Source: [employer] Document Id: [id number] CDT!127 Miscellaneous - Nadine Campos RXeniaNXenia - 10/27/2014 11:15 PM CDT Adult Ongoing [...] Yes/No : No Nail Bed Color : [place] Capillary Refill : Greater than 2 seconds [...] : Smooth, pink, moist, intact Gingiva : [place], smooth, moist, intact Tongue : Smooth, pink, [...] Safety Needs : Yes NADINE CAMPOS RN 10/27/2014 23:27 CDT Gastrointestinal GI Patient Stated Symptoms : None Abdomen Description : Symmetric Abdomen Palpation : Non-Tender, Soft Bowel Movement Last Date : 10/27/2014 CDT NADINE CAMPOS 10/27/2014 23:27 CDT Nutrition Appetite : Good Eating Difficulties : None Feeding Ability : Complete independence NADINE CAMPOS RN - 10/27/2014 23:27 CDT Genitourinary Patient Stated Symptoms : None Urinary Elimination : Voiding, no difficulties Urine Color : Yellow NADINE CAMPOS RN 10/27/2014 23:27 CDT Integumentary Integumentary Patient Stated Symptoms : Bruising, Fragile skin Skin Turgor : Non-Elastic Skin Integrity : Intact Mucous Membrane Color : [place] Mucous Membrane Description : Moist NADINE CAMPOS RN - 10/27/2014 23:27 CDT Skin Abnormality/Location Grid Location [...] CAMPOS RN - 10/27/2014 23:27 CDT Source: [facility] POWERCHART Document Id: [id number] CDT!137 Miscellaneous - Rajan Carl RAbimbola - [...] Yes/No : No Nail Bed Color : [place] Capillary Refill : Less than 2 seconds [...] RAJAN CARL RN - 10/27/2014 16:20 CDT Marine Coma Eye Opening Response Marine : Spontaneously Best Verbal Response Marine : Oriented Best Motor Response [place] : Obeys simple commands Marine Coma Score : 15 RAJAN CARL RN - 10/27/2014 16:20 CDT Oral Exam - Swing Bed Teeth and supporting structure for : No abnormality Oral Cavity Tissue for : No abnormality Gums for : No abnormality Partials or Dentures for : No abnormality RAJAN CARL RN - 10/27/2014 16:20 CDT Psycho/Emotional Affect/Behavior : Calm, Cooperative, Appropriate Pain Symptoms : No Feels Rested : Yes RAJAN CARL RN - 10/27/2014 16:20 CDT Coping Grid Identifies effective [...] Safety Needs : Yes RAJAN CARL RN 10/27/2014 16:20 CDT Psycho/Emotional Detailed Assessment : [...] 6 or more consecutive hours Memory : FDC memory intact, Short term memory intact Thought Process Intact : Yes RAJAN CARL RN 10/27/2014 16:20 CDT Suicide Risk Re-Assessment Ongoing Behaviors/Threats of Harm to Self : No Behaviors/Threats of Harm to Others : No Do you have a plan for suicide? : No RAJAN CARL RN 10/27/2014 16:20 CDT Gastrointestinal GI Patient Stated Symptoms : None Abdomen Description : Flat Abdomen Palpation : Non-Tender, Soft Bowel Movement Last Date : 10/27/2014 CDT Bowel Sounds All Quadrants : Present Passing Flatus : Yes RAJAN CARL RN - 10/27/2014 16:20 CDT Nutrition Home Diet : Regular Appetite : Excellent Eating Difficulties : None Feeding Ability : Complete independence RAJAN CARL RN - 10/27/2014 16:20 CDT Genitourinary Patient Stated Symptoms : None Urinary Elimination : Voiding, no difficulties Urine Color : Yellow Urine Description : Clear Urine Odor : Odorless Bladder Distention : Absent RAJAN CARL DEONNA - 10/27/2014 16:20 CDT Integumentary Integumentary Patient Stated Symptoms : Bruising Skin Turgor : Elastic Skin Integrity : Intact Mucous Membrane Color : [place] Mucous Membrane Description : Moist RAJAN CARL DEONNA - 10/27/2014 16:20 CDT Skin Abnormality/Location Grid Location : Abdomen Hand Lower arm Laterality : Left, Right Left, Right Right Abnormality : Bruising Bruising Bruising RAJAN CARL DEONNA - 10/27/2014 16:20 CDT RAJAN CARL DEONNA - 10/27/2014 16:20 CDT RAJAN CARL N 10/27/2014 16:20 CDT Skin Color : Normal [...] - 10/27/2014 16:20 CDT RAJAN CARL DEONNA 10/27/2014 16:20 CDT Hendrich II Fall Risk Confusion/Disorientation Hendrich : No Depression Fall Risk Hendrich : No Altered Elimination Fall Risk Hendrich : No Dizziness/Vertigo Fall Risk Hendrich : No Gender, Male Fall Risk Hendrich : No Prescribed Antiepileptics Hendrich : No Prescribed Benzodiazepines Hendrich : No Rising From Chair Fall Risk Hendrich : Pushes up, successful in one attempt Fall Risk Score Russell II : 1 [...] CARL RN - 10/27/2014 16:20 CDT Source: [facility] Document Id: [id number] CDT!168 Miscellaneous - Evelyn Montano RAbimbola - 10/27/2014 4:05 PM CDT Adult Ongoing [...] MONTANO RN - 10/27/2014 16:05 CDT Source: [facility] Document Id: [id number] CDT!26 Miscellaneous - Lily Morton, O.T. - [...] MORTON OT - 10/27/2014 13:55 CDT Source: [facility] Document Id: [id number] CDT!6 Miscellaneous - Rajan Carl R.N. - 10/27/2014 8:00 AM CDT Adult Ongoing [...] Yes/No : No Nail Bed Color : [place] Capillary Refill : Less than 2 seconds [...] 10:20 CDT Marine Coma Eye Opening Response Marine : Spontaneously Best Verbal Response Marine : Oriented Best Motor Response Marine : Obeys simple commands [place] Coma Score : 15 RAJAN CARL RN [...] 6 or more consecutive hours Memory : FDC memory intact Thought Process Intact : Yes [...] no difficulties Bladder Distention : Absent RAJAN ACRL RN - 10/27/2014 10:20 CDT Shawn Sensory [...] CARL RN - 10/27/2014 10:20 CDT [facility] Document Id: [id number] CDT!145 Miscellaneous - Nadine Campos RXeniaNXenia - [...] Yes/No : No Nail Bed Color : [place] Capillary Refill : Less than 2 seconds [...] Activity Tolerance : Minimal distress NADINE CAMPOS Jaspreet 10/26/2014 23:42 CDT Neurological Neuro Patient Stated [...] No Feels Rested : Yes NADINE CAMPOS 10/26/2014 23:42 CDT Coping Grid Identifies effective [...] Values/Beliefs incorporated appropriately : Yes NADINE CAMPOS 10/26/2014 23:42 CDT Safety Grid Vision, Hearing, Mobility Adequate to Meet Safety Needs : Yes NADINE CAMPOS 10/26/2014 23:42 CDT Gastrointestinal GI Patient Stated Symptoms : None Abdomen Palpation : Non-Tender, Soft Bowel Movement Last Date : 10/26/2014 CDT Bowel Sounds All Quadrants : Hyperactive NADINE CAMPOS 10/26/2014 23:42 CDT Nutrition Appetite : Good Eating Difficulties : None Feeding Ability : Complete independence NADINE CAMPOS 10/26/2014 23:42 CDT Genitourinary Patient Stated Symptoms : None Urinary Elimination : Voiding, no difficulties NADINE CAMPOS 10/26/2014 23:42 CDT Integumentary Integumentary Patient Stated Symptoms : Bruising Skin Turgor : Non-Elastic Skin Integrity : Intact Mucous Membrane Color : [place] Mucous Membrane Description : Moist NADINE CAMPOS [...] CAMPOS RN - 10/26/2014 23:42 CDT [facility] Document Id: [id number] CDT!132 Jarod - Charissa Carlisle - 10/26/2014 [...] Counseling Pastoral Intervention Provided : Active Listening, [place] / Pastoral Presence, Ongoing supportive spiritual care Pastoral Care Plan : No Follow Up Needed CHARISSA CARLISLE - 10/26/2014 17:39 CDT Source: [facility] Document Id: [id number] CDT!9 Miscellaneous - Amari Gallo R.N. - 10/26/2014 4:40 PM CDT Adult [...] Yes/No : No Nail Bed Color : [place] Capillary Refill : Less than 2 seconds Edema Assessment : No AMARI GALLO RN 10/26/2014 17:15 CDT Radial Pulse, Left : 2+ Normal Radial Pulse, Right : 2+ Normal Dorsalis Pedis Pulse, Left : 2+ Normal Dorsalis Pedis Pulse, Right : 2+ Normal AMARI GALLO 10/26/2014 17:15 CDT Skin Color : Normal for ethnicity, [place] Skin Description : Dry Skin Temperature : Warm Activity Tolerance : Without distress AMARI GALLO DEONNA 10/26/2014 17:15 CDT Neurological Neuro Patient Stated Symptoms : None Orientation : Oriented x 3 Level of Consciousness : Alert Gait : Steady Swallowing Difficulty/Aspiration Risk : None AMARI GALLO DEONNA 10/26/2014 17:15 CDT Psycho/Emotional Affect/Behavior : Calm, Cooperative, Appropriate Pain Symptoms : No Feels Rested : Yes AMARI GALLO DEONNA 10/26/2014 17:15 CDT Coping Grid Identifies effective [...] Values/Beliefs incorporated appropriately : Yes AMARI GALLO Marvin 10/26/2014 17:15 CDT Safety Grid Vision, Hearing, Mobility Adequate to Meet Safety Needs : Yes AMARI GALLO DEONNA 10/26/2014 17:15 CDT Gastrointestinal GI Patient Stated Symptoms : None Abdomen Description : Symmetric Abdomen Palpation : Non-Tender, Tender Bowel Movement Last Date : 10/26/2014 CDT Emesis Description : Blood-Tinged Bowel Sounds All Quadrants : Present Stool Color : Brown Stool Description : Loose Stool Amount : Small AMARI GALLO Marvin YING 10/26/2014 17:15 CDT Nutrition Home Diet : Regular AMARI GALLO Marvin YING 10/26/2014 17:15 CDT Genitourinary Patient Stated Symptoms : None Urinary Elimination : Voiding, no difficulties AMARI GALLO Marvin YING 10/26/2014 17:15 CDT Integumentary Integumentary Patient Stated Symptoms : None Skin Turgor : Elastic Skin Integrity : Intact Mucous Membrane Color : [place] Mucous Membrane Description : Moist AMARI GALLO Marvin YING 10/26/2014 17:15 CDT Skin Abnormality/Location Grid Location : Abdomen Hand Lower arm Laterality : Left, Right Left, Right Right Abnormality : Bruising Bruising Bruising AMARI GALLO RN - 10/26/2014 17:15 CDT AMARI GALLO RN - 10/26/2014 17:15 CDT AMARI GALLO RN - 10/26/2014 17:15 CDT Shawn Sensory Perception [...] Risk Score Hendrich II : 1 AMARI GALLO RN - 10/26/2014 17:15 CDT Safe Patient Handling Safe Pt Handling Independent : Yes - No equipment needed Safe Pt Handling Equipment Rec : No Equipment Needed AMARI GALLO RN - 10/26/2014 17:15 CDT Source: [facility] Document Id: [id number] CDT!118 Miscellaneous - Antonio Hendricks - 10/26/2014 10:15 AM CDT Adult Activities of Daily Living Adult Activities of Daily Living Entered On: 10/26/2014 15:25 CDT Performed On: 10/26/2014 10:15 CDT by ANTONIO HENDRICKS WIRE COINER ADLs I Patient Position : Elevate head [...] cm) Ambulation Patient Effort : ANTONIO Rosas WIRE COINER - 10/26/2014 15:23 CDT ADLs II Hygiene Assistance Grid Foot Care : Independent Hair Care : Independent Oral Care : Independent Catrina Care : Independent Shower : Independent Upper Body Dressing(Clothing) : Independent Lower Body Dressing(Clothing) : Independent ANTONIO HENDRICKS WIRE COINER - 10/26/2014 15:23 CDT Bowel Movement Last Date : 10/26/2014 CDT Standard Safety : Call device within reach, ID band check ANTONIO HENDRICKS - 10/26/2014 15:23 CDT Source: [facility] Document Id: [id number] CDT!23 Miscellaneous - Amari Gallo R.N. - [...] GALLO RN - 10/26/2014 11:04 CDT Source: [facility] Document Id: [id number] CDT!12 Miscellaneous - Amari Gallo R.N. - [...] Yes/No : No Nail Bed Color : [place] Capillary Refill : Less than 2 seconds Edema Assessment : No AMARI GALLO RN - 10/26/2014 9:58 CDT Radial Pulse, Left : 2+ Normal Radial Pulse, Right : 2+ Normal Dorsalis Pedis Pulse, Left : 2+ Normal Dorsalis Pedis Pulse, Right : 2+ Normal AMARI GALLO RN - 10/26/2014 9:58 CDT Skin Color : Normal for ethnicity, [place] Skin Description : Dry Skin Temperature : [...] : Yes GALLOAMARI Marvin YING - 10/26/2014 9:58 CDT Safety Grid Vision, Hearing, Mobility Adequate to Meet Safety Needs : Yes GALLOAMARI Marvin YING - 10/26/2014 9:58 CDT Gastrointestinal Passing Flatus : No GALLOAMARI Marvin YING 10/26/2014 10:01 CDT GI Patient Stated Symptoms : None Abdomen Description : Symmetric Abdomen Palpation : Non-Tender, Soft Bowel Movement Last Date : 10/25/2014 CDT Bowel Sounds All Quadrants : Hyperactive GALLO, AMARI Marvin YING - 10/26/2014 9:58 CDT Nutrition Home Diet : Regular Appetite : Good Eating Difficulties : None Feeding Ability : Complete independence GALLOAMARI Marvin YING - 10/26/2014 9:58 CDT Genitourinary Patient Stated Symptoms : None Urinary Elimination : Voiding, no difficulties AMARI GALLO RN - 10/26/2014 9:58 CDT Integumentary Integumentary Patient Stated Symptoms : None Skin Turgor : Elastic Skin Integrity : Intact Mucous Membrane Color : [place] Mucous Membrane Description : Moist GALLO, AMARI Marvin YING - 10/26/2014 9:58 CDT Skin Abnormality/Location Grid Location : Abdomen Hand Lower arm Laterality : Left, Right Left, Right Right Abnormality : Bruising Bruising Bruising CLEO AMARI Marvin YING - 10/26/2014 9:58 CDT CLEO AMARI Marvin YING 10/26/2014 9:58 CDT CLEO AMARI Marvin YING 10/26/2014 9:58 CDT Shawn Sensory Perception Shawn : No impairment Moisture Shawn : Rarely moist Activity Shawn : Walks frequently Mobility Shawn : No limitations Nutrition Shawn : Excellent Friction and Shear Shawn : No apparent problem Shawn Score : 23 CLEO AMARI Marvin YING 10/26/2014 9:58 CDT Peripheral IV [...] Risk Score Hendrich II : 1 AMARI GALLO RN - 10/26/2014 9:58 CDT Safe Patient Handling Safe Pt Handling Independent : Yes - No equipment needed Safe Pt Handling Equipment Rec : No Equipment Needed AMARI GALLO RN - 10/26/2014 9:58 CDT Source: [facility] Document Id: [id number] CDT!3 Miscellaneous - Nadine Campos R.NXenia - 10/25/2014 11:44 PM CDT Adult Ongoing [...] Yes/No : No Nail Bed Color : [place] Capillary Refill : Less than 2 seconds Edema Assessment : No NADINE CAMPOS RN - 10/25/2014 21:26 CDT Radial Pulse, Left : 2+ Normal Radial Pulse, Right : 2+ Normal Dorsalis Pedis Pulse, Left : 2+ Normal Dorsalis Pedis Pulse, Right : 2+ Normal LELYUKH, NADINE A 10/25/2014 21:26 CDT Skin Color : Normal for ethnicity Skin Description : Dry Skin Temperature : Warm Activity Tolerance : Minimal distress NADINE CAMPOS RN - 10/25/2014 21:26 CDT Neurological Neuro Patient Stated Symptoms : None Orientation : Oriented x 3 Level of Consciousness : Alert Gait : Steady Swallowing Difficulty/Aspiration Risk : None NADINE CAMPOS 10/25/2014 21:26 CDT Oral Assessment Lips : Smooth, pink, moist, intact Gingiva : [place], smooth, moist, intact Tongue : Smooth, pink, [...] : Voiding, no difficulties NADINE CAMPOS RN 10/25/2014 21:26 CDT Integumentary Integumentary Patient Stated Symptoms : Bruising Skin Integrity : Intact Mucous Membrane Color : [place] Mucous Membrane Description : Moist NADINE CAMPOS RN - 10/25/2014 21:26 CDT Skin Abnormality/Location Grid Location [...] Symptoms : None NADINE CAMPOS RN - 10/25/2014 21:26 CDT Peripheral IV Peripheral IV [...] - 10/25/2014 23:42 CDT NADINE CAMPOS RN - 10/25/2014 21:26 CDT Hendrich II Fall Risk [...] Rec : No Equipment Needed NADINE CAMPOS - 10/25/2014 23:42 CDT Safe Pt Handling Independent : Yes - No equipment needed NADINE CAMPOS RN 10/25/2014 21:26 CDT Education General Patient Education [employer] Topics : Medication generic/brand names, purpose, action, Pain Management, Plan of care, Printed materials, Safety, fall Individuals Taught : Patient Barriers to Learning : None evident Teaching Method : Explanation, Printed materials Teaching Evaluation : Verbalizes understanding NADINE CAMPOS RN - 10/25/2014 21:26 CDT Source: [facility] Document Id: [id number] CDT!133 Silvina Smith - 10/25/2014 10:23 PM [...] SILVINA DIGGS - 10/25/2014 22:23 CDT Source: [facility] Document Id: [id number] CDT!18 Larry Adler OBeverly - 10/25/2014 3:56 PM CDT Activity Participation [...] LARRY CORTEZ - 10/25/2014 15:56 CDT Source: [facility] Document Id: [id number] CDT!7 Miscellaneous - Larry Cortez, O.T. - 10/25/2014 3:48 PM CDT Activities Assessment Activities Assessment Entered On: 10/25/2014 15:56 CDT Performed On: 10/25/2014 15:48 CDT by LARRY CORTEZ Patient/Resident Information Maritial Status : Sikhism Preference : Mormonism: Mandaeism Information Provided By : Patient, Chart, Observation LARRY CORTEZ - 10/25/2014 15:48 CDT Physical Function Orientation : Oriented x 3 Mobility : Independent Modes of Expression : Speech Languages : Burkinan Vision : Glasses LARRY CORTEZ - 10/25/2014 [...] Reading : Yes TV Programs : Yes Walking/[place] Outdoors : Yes Visitors : Yes AUTUMNFIDELT M - 10/25/2014 15:48 CDT Additional Assessment Information Activities Assessment Additional Info : Pt rec's IV antibiotics every 8 hours s/p urosepsis. She is ambulatory w/out AD, alert and oriented. Recently , has a good support network. AUTUMNFIDELT M - 10/25/2014 15:48 CDT Care Plan Care Plan Strengths : Pt indep in ambulation and all ADL's; very social with frequent and prolonged visitors. Req's hospitaliztion for IV antibiotics. Recreation Therapy Goals : Pt will participate in 1 daily activity outside of her room. AUTUMNFIDELT Hoang - 10/25/2014 15:48 CDT Source: [facility] Document Id: [id number] CDT!33 Miscellaneous - Conversion, Historical Provider Ser [...] Yes/No : No Nail Bed Color : [place] Capillary Refill : Less than 2 seconds [...] Steady FERNANDO HAQUE - 10/25/2014 14:19 CDT [place] Coma Eye Opening Response Marine : Spontaneously Best Verbal Response [place] : Oriented Best Motor Response [place] : Obeys simple commands Marine Coma Score [...] successful in one attempt Fall Risk Score Russell II : 1 FERNANDO HAQUE - 10/25/2014 [...] Teaching Evaluation : Verbalizes understanding FERNANDO HAQUE Tanya - 10/25/2014 14:19 CDT Source: [facility] Document Id: [id number] CDT!94 Krystyna Warner - 10/25/2014 12:46 PM CDT Team Meeting Notes Team Meeting Notes Entered On: 10/25/2014 12:46 CDT Performed On: 10/25/2014 12:46 CDT by KRYSTYNA GROSS Team Notes Team Meeting Grid Discipline : Miller Apprentice, Clay Press Operator, Certified Industrial Hygienist, Nurse, Occupational Therapist, Patient, Physical Therapist, Driver'S License Reviewing Officer, Speech Therapist, Other: Nurse Recreational Director Topics : Medication, Plan of care Goal of the Day : Pt is on Zosyn Q8 and switched to TCU on 10/24/14. KRYSTYNA GROSS - 10/25/2014 12:46 CDT Source: [facility] Document Id: [id number] CDT!7 Jarod - Pretty Claire, RXeniaNXenia - 10/25/2014 10:00 AM CDT Adult Activities [...] PRETTY CLAIRE - 10/25/2014 13:26 CDT Source: [facility] Document Id: [id number] CDT!12 Miscellmira - Pretty Claire R.N. - 10/25/2014 10:00 [...] PRETTY CLAIRE - 10/25/2014 13:26 CDT Source: [facility] Document Id: [id number] CDT!8 Jarod - Charissa Erwin RAbimbola - 10/25/2014 9:50 AM CDT Adult Ongoing Assessment Adult Ongoing Assessment Entered On: 10/25/2014 11:58 CDT Performed On: 10/25/2014 9:50 CDT by CHARISSA ERWIN RN Respiratory Respiratory Patient Stated Symptoms : None Respirations : Unlabored Respiratory Pattern : Regular All Lobes Breath Sounds : Clear Cough : None Sputum Amount : None Suction : None Airway : Patent CHARISSA ERWIN DEONNA 10/25/2014 11:50 CDT Cardiovascular CV Patient Stated Symptoms : None Heart Rhythm : Regular Heart Sounds ICU : S1S2 Antiembolism Device Yes/No : No Nail Bed Color : [place] Capillary Refill : Less than 2 seconds Edema Assessment : No Pacer : No CHARISSA ERWIN Marvin YING 10/25/2014 11:50 CDT Radial Pulse, Left : 2+ Normal Radial Pulse, Right : 2+ Normal Dorsalis Pedis Pulse, Left : 2+ Normal Dorsalis Pedis Pulse, Right : 2+ Normal CHARISSA ERWIN DEONNA 10/25/2014 11:50 CDT Skin Color : [place] Skin Description : Normal Skin Temperature : Warm Activity Tolerance : Without distress CHARISSA ERWIN 10/25/2014 11:50 CDT Neurological Neuro Patient Stated Symptoms : None Orientation : Oriented x 3 Level of Consciousness : Alert Gait : Steady Swallowing Difficulty/Aspiration Risk : None RIP CHARISSA Marvin 10/25/2014 11:50 CDT [place] Coma Eye Opening Response Marine : Spontaneously Best Verbal Response Marine : Oriented Best Motor Response [place] : Obeys simple commands Marine Coma Score : 15 CHARISSA ERWIN Marvin YING 10/25/2014 11:50 CDT Oral Exam - Swing Bed Teeth and supporting structure for : Ability to chew without pain or sensitivity to hot/cold Oral Cavity Tissue for : No abnormality Gums for : No abnormality Partials or Dentures for : No abnormality RIP CHARISSA Marvin YING 10/25/2014 11:50 CDT Oral Assessment Lips : Smooth, pink, moist, intact Gingiva : [place], smooth, moist, intact Tongue : Smooth, pink, moist, intact Teeth : Clean, no debris Saliva : Thin, watery, plentiful CHARISSA ERWIN Marvin YING 10/25/2014 11:50 CDT Psycho/Emotional Affect/Behavior : Calm, Cooperative, Appropriate Pain Symptoms : No CHARISSA ERWIN Marvin 10/25/2014 11:50 CDT Coping Grid Identifies effective strategies : Yes Uses effective strategies : Yes Reports increase in psychological comfort : Yes Indicates sense of control : Yes Stressors perceived within control : Yes Stable mood with appropriate affect : Yes Behaviors indicate use of coping mechanism : Yes Family supportive and involved in care : Yes Values/Beliefs incorporated appropriately : Yes CHARISSA ERWIN 10/25/2014 11:50 CDT Safety Grid Vision, Hearing, Mobility Adequate to Meet Safety Needs : Yes CHARISSA ERWIN 10/25/2014 11:50 CDT Gastrointestinal GI Patient Stated Symptoms : None Abdomen Description : Rounded Abdomen Palpation : Soft Bowel Movement Last Date : 10/25/2014 CDT Bowel Sounds All Quadrants : Present CHARISSA ERWIN 10/25/2014 11:50 CDT Nutrition Home Diet : Regular Appetite : Good Eating Difficulties : None Feeding Ability : Complete independence CHARISSA ERWIN 10/25/2014 11:50 CDT Genitourinary Patient Stated Symptoms : None Urinary Elimination : Voiding, no difficulties CHARISSA ERWIN 10/25/2014 11:50 CDT Integumentary Integumentary Patient Stated Symptoms : None Skin Turgor : Elastic Skin Integrity : Intact Mucous Membrane Color : [place] Mucous Membrane Description : Moist CHARISSA ERWIN 10/25/2014 11:50 CDT Skin Abnormality/Location Grid Location : Abdomen Hand Lower arm Laterality : Left, Right Left, Right Right Abnormality : Bruising Bruising Bruising CHARISSA ERWIN 10/25/2014 11:50 CDT CHARISSA ERWIN 10/25/2014 11:50 CDT CHARISSA ERWIN 10/25/2014 11:50 CDT Skin Color : [place] Skin Description : Normal Skin Temperature : Warm CHARISSA ERWIN 10/25/2014 11:50 CDT Shawn Sensory Perception Shawn : No impairment Moisture Shawn : Rarely moist Activity Shawn : Walks frequently Mobility Shawn : No limitations Nutrition Shawn : Adequate CHARISSA ERWIN 10/25/2014 11:50 CDT Musculoskeletal Musculoskeletal Patient Stated Symptoms : None Activity Tolerance : Without distress CHARISSA ERWIN 10/25/2014 11:50 CDT Peripheral IV Peripheral IV [...] ERWIN RN - 10/25/2014 11:50 CDT [facility] Document Id: [id number] CDT!153 Miscellaneous - Maria Napier RXeniaNXenia - 10/24/2014 11:20 PM CDT Adult Ongoing [...] Yes/No : No Nail Bed Color : [place] Edema Assessment : No MARIA DAVID RN 10/25/2014 1:11 CDT Radial Pulse, Left : 2+ Normal Radial Pulse, Right : 2+ Normal Dorsalis Pedis Pulse, Left : 2+ Normal Dorsalis Pedis Pulse, Right : 2+ Normal AMRIA DAVID RN 10/25/2014 1:11 CDT Skin Color : Normal for ethnicity, [place] Skin Description : Fragile, Moist, Normal Skin Temperature : Warm Activity Tolerance : Without distress MARIA DAVID RN 10/25/2014 1:11 CDT Neurological Neuro Patient Stated Symptoms : None Orientation : Oriented x 3, Appropriate for age Level of Consciousness : Alert Gait : Steady Swallowing Difficulty/Aspiration Risk : None MARIA DAVID RN 10/25/2014 1:11 CDT Marine Coma Eye Opening Response [place] : Spontaneously Best Verbal Response [place] : Oriented Best Motor Response [place] : Obeys simple commands [place] Coma Score : 15 MARIA DAVID RN [...] : Voiding, no difficulties MARIA DAVID RN - 10/25/2014 1:11 CDT Integumentary Integumentary Patient Stated Symptoms : Bruising Skin Turgor : Elastic Skin Integrity : Intact Mucous Membrane Color : [place] Mucous Membrane Description : Moist MARIA DAVID RN - 10/25/2014 1:11 CDT Skin Abnormality/Location Grid Location : Abdomen Hand Lower arm Laterality : Left, Right Left, Right Right Abnormality : Bruising Bruising Bruising MARIA DAVID RN - 10/25/2014 1:11 CDT MARIA DAVID RN 10/25/2014 1:11 CDT MARIA DAVID RN 10/25/2014 1:11 CDT Skin Color : Normal for ethnicity, [place] Skin Description : Fragile, Moist, Normal Skin Temperature : Warm MARIA DAVID RN - 10/25/2014 1:11 CDT Shawn Sensory Perception Shawn [...] Normal, Intact MARIA DAVID RN 10/25/2014 1:11 MARCIALT MARIA DAVID RN 10/25/2014 1:11 CDT MARIA [...] DAVID RN - 10/25/2014 1:11 CDT Source: [employer] Document Id: [id number] CDT!161 Miscellaneous - Silvina Diggs - 10/24/2014 [...] SILVINA DIGGS - 10/24/2014 21:24 CDT Source: [facility] Document Id: [id number] CDT!12 Miscellaneous - Conversion, Historical Provider Ser [...] Yes/No : No Nail Bed Color : [place] Capillary Refill : Less than 2 seconds [...] 17:36 CDT Marine Coma Eye Opening Response [place] : Spontaneously Best Verbal Response Marine : Oriented Best Motor Response Marine : Obeys simple commands Marine Coma Score : 15 WIN RAMIREZ - 10/24/2014 17:36 CDT Psycho/Emotional Affect/Behavior : Calm, Cooperative Pain Symptoms : No Feels Rested : Yes WIN RAMIREZ - 10/24/2014 17:36 CDT Coping Grid Family supportive and involved in care : Yes WIN RAMIREZ - 10/24/2014 17:36 CDT Safety Grid Vision, Hearing, Mobility Adequate to Meet Safety Needs : Yes WIN RAMIREZ 10/24/2014 17:36 CDT Gastrointestinal GI Patient Stated Symptoms : None Abdomen Description : Asymmetric Abdomen Palpation : Soft WIN RAMIREZ - 10/24/2014 17:36 CDT Nutrition Home Diet : Regular Eating Difficulties : None Feeding Ability : Complete independence WIN RAMIREZ - 10/24/2014 17:36 CDT Genitourinary Urinary Elimination : Voiding, no difficulties WIN RAMIREZ 10/24/2014 17:36 CDT Integumentary Integumentary Patient Stated Symptoms : Bruising Skin Turgor : Elastic Skin Integrity : Intact Mucous Membrane Color : [place] Mucous Membrane Description : Moist WIN RAMIREZ - 10/24/2014 17:36 CDT Skin Abnormality/Location Grid Location : Abdomen Hand Lower arm Laterality : Left, Right Left, Right Right Abnormality : Bruising Bruising Bruising WIN RAMIREZ - 10/24/2014 17:36 CDT WIN RAMIREZ 10/24/2014 17:36 CDT WIN RAMIREZ 10/24/2014 17:36 CDT Skin Color : Normal for ethnicity Skin Description : Dry Skin Temperature : Warm WIN RAMIREZ - 10/24/2014 17:36 CDT Shawn Sensory Perception Shawn : No impairment Moisture Shawn : Rarely moist Activity Shawn : Walks frequently Mobility Shawn : No limitations Nutrition Shawn : Adequate WIN RAMIREZ - 10/24/2014 17:36 CDT Musculoskeletal Musculoskeletal Patient Stated Symptoms : None JAMES WIN Preston RN - 10/24/2014 17:36 CDT Peripheral IV Peripheral IV Assess/Intervention Grid Peripheral IV #1 Peripheral IV #2 IV Activity : Assessment Start Removal : Catheter intact, Hemostasis within expected timeframe Number of Attempts : 1 Date of Insertion : 10/24/2014 CDT IV Site : Hand Forearm Laterality : Left Catheter Size : 20 20 Catheter Type : Butterfly Other: Nexivia WIN RAMIREZ RN - 10/24/2014 17:36 CDT [...] RAMIREZ RN - 10/24/2014 17:36 CDT [facility] Document Id: [id number] CDT!115 Miscellaneous - Conversion, Historical Provider Ser [...] beer, cola drinks, and dairy products. ?? [id number] [facility], [address] [place] [address], [place] [address]. All rights reserved. This information is not [...] be at increased risk if you are -Citizen Of [place], , ,, or . Signs and symptoms [...] any illicit drugs you may use. ?? [id number] [facility], [address] [place] [address]. All rights reserved. This information is not intended as a substitute for professional medical care. Always follow your healthcare professional's instructions. This document has images extracted. Please consider using [employer] for all your patient education needs. Source: [facility] POWERCHART Document Id: [id number] Miscellaneous - Conversion, Historical Provider Ser - [...] beer, cola drinks, and dairy products. ?? [phone] [facility], [address] [place] [address], [place] [address]. All rights reserved. This information is not [...] be at increased risk if you are -Citizen Of [place], , ,, or . Signs and symptoms [...] any illicit drugs you may use. ?? [id number] [facility], [address] [place] [address], [place] [id number]. All rights reserved. This information is not intended as a substitute for professional medical care. Always follow your healthcare professional's instructions. This document has images extracted. Please consider using [employer] for all your patient education needs. Source: [facility] POWERCHART Document Id: [id number] Miscellaneous - Conversion, Historical Provider Ser - [...] beer, cola drinks, and dairy products. ?? [id number] George Fish, [address] [place] [address], [place] [address]. All rights reserved. This information is not [...] be at increased risk if you are -Citizen Of [place], , ,, or . Signs and symptoms [...] any illicit drugs you may use. ?? [id number] George Fish, [address] [place] [address], JENIFER Chris [address]. All rights reserved. This information is not intended as a substitute for professional medical care. Always follow your healthcare professional's instructions. This document has images extracted. Please consider using [employer] for all your patient education needs. Source: [employer] Document Id: [id number] Jarod - Yisel Bryson - 10/24/2014 1:00 PM CDT Activity Participation Activity Participation Entered On: 10/24/2014 14:03 CDT Performed On: 10/24/2014 13:00 CDT by YISEL BRYSON Activity Participation Patient Participation - Recreational : No Additional Comments : Due to timing of the activity patient was unable to participate due to nursingworking with her. YISEL BRYSON - 10/24/2014 14:00 CDT Source: [employer] Document Id: [id number] CDT!4 Jarod - Lliy Morton, O.T. - 10/24/2014 11:32 AM CDT Activity Participation Activity Participation Entered On: 10/24/2014 11:32 CDT Performed On: 10/24/2014 11:32 CDT by LILY MORTON OT Activity Participation Recreational Activity - Restorative : Other: pt enjoys the [employer] Activities offered by - Recreational : Occupational Therapy Patient Participation - Recreational : Yes Treatment Response - Recreational : Expected LILY MORTON OT - 10/24/2014 11:32 CDT Source: [employer] Document Id: [id number] CDT!6 Jarod - Elsi Cook R.N. - [...] COOK RN - 10/24/2014 11:07 CDT Source: [facility] POWERCHART Document Id: [id number] CDT!6 Miscellaneous - Conversion, Historical Provider Ser [...] ICU : S1S2 Nail Bed Color : [place] Capillary Refill : Less than 2 seconds [...] Integrity : Intact Mucous Membrane Color : [place] Mucous Membrane Description : Moist WIN RAMIREZ [...] RAMIREZ RN - 10/24/2014 12:01 CDT Source: [employer] Document Id: [id number] CDT!118 Miscellaneous - Conversion, Historical Provider Ser [...] RAMIREZ RN - 10/24/2014 12:09 CDT Source: [employer] Document Id: [id number] CDT!12 Miscellaneous - Conversion, Historical Provider Ser - 10/24/2014 11:00 AM CDT Adult Admission History Adult Admission History Entered On: 10/24/2014 12:49 CDT Performed On: 10/24/2014 11:00 CDT by WIN RAMIREZ RN General Info Preferred Name : Karoline Admitted From : Non-Health Care Facility Point of Origin Accompanied By : Daughter Information Given By : Patient Languages : Burkinan Is Patient Female and 13-50 no hysterectomy [...] None Behavioral Health Screen/Safety Assmt : No Sikhism Preference : Mormonism: Mandaeism WIN RAMIREZ RN - 10/24/2014 12:44 CDT [...] RAMIREZ RN - 10/24/2014 12:44 CDT Source: [facility] POWERCHART Document Id: [id number] CDT!44 Miscellaneous - Nabeel Patton - 10/24/2014 [...] NABEEL PATTON - 10/24/2014 10:25 CDT Source: [employer] POWERCHART Document Id: [id number] CDT!5 documented in this encounter Plan of [...] Complete, Includes Microscopic (10/28/2014 7:45 AM CDT) [facility] Method Time Signature HXUr Color Yellow Colorless POWERCHART Clarity Clear Clear POWERCHART Glucose Negative Negative POWERCHART MGDL HXBILIRUBIN Negative Negative POWERCHART Ketones, QL(U) Negative Negative POWERCHART MGDL Specific 1.015 POWERCHART [place], POCT, U HXBLOOD Negative Negative POWERCHART pH, [...] M.D. LAB URINE ORDERABLES Performing Organization Address City/[facility]/ZIP Code Phon e Number POWERCHART Automated Differential [...] M.D. LAB BLOOD ADD-ON Performing Organization Address City/State/[facility] Code Phon e Number POWERCHART (ABNORMAL) CBC with Differential (10/27/2014 6:22 AM CDT) Patholo gist Method Time Signature Leukocytes 5.3 3.5 - 10.5 POWERCHART X109L Erythrocytes 3.52 (L) 3.90 - POWERCHART 5.03 [id number] Hemoglobin 10.5 (L) 12.0 - POWERCHART 15.5 [...] (Basic Metabolic Panel) (10/27/2014 6:22 AM CDT) [facility] Method Time Signature Sodium, S 143 135 [...] eGFR 33.1 (L) >=60.0 POWERCHART Black/ MLMINSA Citizen [place] Glucose 83 70 - 140 POWERCHART MGDL Specimen (Source) Anatomical Collection Method Collection Time Re ceived Time Location / / Volume Laterality Blood 10/27/2014 6:22 AM CDT Jose Daniel Belle M.D. LAB BLOOD ADD-ON Performing Organization Address City/State/ZIP Code Phon e Number POWERCHART GI Pathogen Panel, PCR, F (10/26/2014 9:00 PM CDT) Component Value Ref Test Analysis Performed At [facility] Range Method Time Signature HXC Difficile POWERCHART [...]
--- OUTSIDE RECORDS SUMMARY | 2022-02-21 09:00 | XMS_ITS | Encounter Summary ---
:1935 Author Organization [facility] Address [address] [place] [address] Care Team Providers Name Role Phone Unavailable Primary Care Provider Unavailable Encounter Details Date Type Department Care Team Description 08/20/2015 Hospital Encounter HX [facility] ED Roxanne Orellana D .O. [...] 08/20/2015 8:37 PM CDT ED Discharge Instructions [address] [place] [address] Name: KAROLINE HALEY Date of : 1935 12:00 AM Visit Date: 08/20/2015 6:22 PM [facility] Number: [id number] Address: [address] [place] [phone] Primary Care Provider: BRITNEY BALDWIN MD IMPORTANT: [facility] in [place] would like to thank you for allowing us to assistyou with your healthcare needs. The following includes patient education materials and information regarding your injury/illness. Diagnosis: Bleeding Rectal Follow-Up Instructions: With: Address: When: BRITNEY BALDWIN [address] [place], [place] [id number] [facility] (1) Within 3 - 5days [...] if you dont have one. Go to [email or web address] and click on Create Your Account. Then, follow the directions to complete the online form. Youll be asked for your [facility] number which you can find at [...] with a responsible green party. I, KAROLINE HALYE , or responsible green party have received this information and my questions have been answered. I have discussed any challenges I see with this plan with the nurse or physician. Patient Signature or Responsible Libertarian/Relationship Date Time Provider Signature Date Time This document has images extracted. Please consider using [employer] for all your patient education needs. Source: [employer] Document Id: [id number] Elsi Mantilla, VICKIE, C.N.P., M.S.N. - 08/20/2015 8:37 PM CDT ED Depart Summary [facility] Department Clinical Discharge Summary PERSON INFORMATION Name KAROLINE HALEY Age 79 Years 1935 12:00 AM Sex Female Language Angolan PCP BRITNEY ABLDWIN MD Marital Status Visit Id Visit Reason Rectal bleed; BLEEDING FROM [facility] Specialty Enc Type Emergency Med Service Emergency Medicine Referred by Track [facility] MAN ED Discharge 08/20/2015 8:27 PM Tracking Id [id number] Checkout 08/20/2015 8:27 PM Checkin 08/20/2015 6:22 PM Acuity 4 -Less Urgent Dispo Type * Discharged to Home or Self Care Arrival 08/20/2015 6:22 PM Reg Status LOS 000 02:05 Address: [address] [place] [phone] Comment: PROVIDER INFORMATION Provider Role Provider Contact Time ELSI MANTILLA [employer] REPA[employer]ER Nurse 08/20/15 18:33 JORDAN HOLBROOK MD ED Provider 08/20/15 19:13 ROXANNE ORELLANA DO ED Provider 08/20/15 19:40 DIAGNOSIS Bleeding Rectal Comment: PATIENT EDUCATION INFORMATION Instructions: ANAL FISSURE (Adult) (Custom) Follow up: With: Address: When: BRITNEY BALDWIN [address] [place] [id number] [facility] () Within 3 - 5days Comments: Follow up with your primary within the week for a recheck. If it is an anal fissure, it should heal in days to weeks. For passing out or near passing out, increase in the amount of blood you see, blackor tarry stools, coffee ground colored vomit or any further concerns, return to the ER Source: [facility] [employer]This Document Id: [id number] documented in this encounter Medications at Time of Discharge Medication Sig Dispensed Refills Start Date End Date cholecalciferol (VITAMIN Take 1,000 Units 0 11/14 D3) 1,000 Unit capsule by mouth daily. geriatric Take 1 tablet by 0 01/30/2015 whbxfuff-sziz-jpdi tablet mouth daily. simvastatin (ZOCOR) 10 mg [...] MANTILLA RN - 08/20/2015 20:34 CDT Source: [employer] Document Id: [id number] CDT!7 Elsi Mantilla APRN C.N.PXenia, M.S.N. - [...] MANTILLA RN - 08/20/2015 20:34 CDT Source: [employer] Document Id: [id number] CDT!9 Elsi Mantilla, VICKIE, C.N.P., M.S.N. - [...] 20:31 CDT Marine Coma Eye Opening Response [place] : Spontaneously Best Verbal Response [place] : Oriented Best Motor Response Marine : Obeys simple commands Marine Coma Score : 15 ELSI MANTILLA RN - 08/20/2015 20:31 CDT GI Reassess GI Patient Stated Symptoms : Stools, black/bloody ELSI MANTILLA RN - 08/20/2015 20:31 CDT /OB Reassess Patient Stated Symptoms : None ELSI MANTILLA RN - 08/20/2015 20:31 CDT Source: [employer] Document Id: [id number] CDT!36 Roxanne Orellana D.O. - 08/20/2015 8:11 [...] Absolute 2.57 10(9)/L Lymph Absolute 2.24 x10(9)/L [place] Absolute 0.77 x10(9)/L Eos Absolute 0.20 x10(9)/L [...] doctor for a recheck--she may need GI and/orOB/WASTE REDUCTION COORDINATOR referral for further testing. Return precautions explained [...] ORELLANA DO On: 08/21/2015 12:10 AM Source: [employer] Document Id: [id number]} Elsi Mantilla APRN, C.N.P., M.S.N. - 08/20/2015 [...] Response Marine : Spontaneously Best Verbal Response [place] : Oriented Best Motor Response [place] : Obeys simple commands Marine Coma Score [...] MANTILLA RN - 08/20/2015 19:23 CDT Source: [employer] Document Id: [id number] CDT!40 Jordan Holbrook M.D. - 08/20/2015 7:14 [...] HOLBROOK MD On: 08/20/2015 07:33 PM Source: [facility] POWERCHART Document Id: [id number]} Elsi Mantilla APRN, C.N.P., M.S.N. - 08/20/2015 [...] Code: PNED ;Probability: 0 ; Diagnosis Code: [id number] Triage Chief Complaint Description : Patient reports [...] Private vehicle Track : Medical Languages : Angolan Vital Signs Assessed : Yes GCS Assessed [...] ELSI MANTILLA RN - 08/20/2015 18:26 CDT [place] Coma Eye Opening Response [place] : Spontaneously Best Verbal Response [place] : Oriented Best Motor Response [place] : Obeys simple commands Marine Coma Score [...] Heart Rhythm : Regular Skin Color : [place] Skin Description : Normal Skin Temperature : [...] MANTILLA RN - 08/20/2015 18:26 CDT Source: [employer] Document Id: [id number] CDT!91 documented in this encounter Miscellaneous Notes Miscellaneous - Elsi Mantilla, VICKIE, C.N.P., M.S.N. - 08/20/2015 8:27 PM CDT Valuables/Belongings Valuables/Belongings Entered On: 08/20/2015 20:35 CDT Performed On: 08/20/2015 20:27 CDT by ELSI MANTILLA RN Valuables/Belongings Belongings Sent Home With : All belongings sent with patient Home Medication Disposition : None brought in with patient ELSI MANTILLA RN - 08/20/2015 20:35 CDT Source: [employer] Document Id: [id number] CDT!4 Miscellaneous - Conversion, Historical Provider Ser - 08/20/2015 8:27 PM CDT Coding Summary-Paper Based CODING DATE: 08/27/2015 FINAL [facility] STATUS: * Discharged to Home [...] VERA Date Saved: 08/27/2015 07:52 am Source: [employer] Document Id: [id number] Miscellaneous - Elsi Mantilla, VICKIE, C.N.P., M.S.N. [...] Nursing Notes ED Primary Assessment,08/20/15 18:26,ELSI MANTILLA [employer] REPA[employer]ER Nurse Reassess,08/20/15 20:15,ELSI MANTILLA [employer] REPAIRER Nurse Reassess,08/20/15 19:15,ELSI MANTILLA RN [place] Nursing Assessment : Triage and 1-2 nursing assessments [place] Disposition : Discharge Disposition RTF : discharge [place] Total Points with Diagnosis Control : 6 [place] Visit Level : 03358 Level 3 Treatments Prior to Arrival : None ELSI MANTILLA RN - 08/20/2015 20:36 CDT Source: [facility] [employer] Document Id: [id number] CDT!19 documented in this encounter Plan of [...] Hemmoccult, POCT (nursing) (08/20/2015 8:00 PM CDT) [facility] Method Time Signature HXOccult Bld Positive (A) Negative POWERCHART Stl I Specimen (Source) Anatomical Collection Method Collection Time Re ceived Time Location / / Volume Laterality Stool 08/20/2015 8:00 PM CDT Roxanne Orellana D.O. LAB POCT ORDERABLES-MANUAL Performing Organization Address City/[facility]/ZIP Code Phon e Number POWERCHART Automated Differential [...] M.D. LAB BLOOD ADD-ON Performing Organization Address [facility] Phon e Number POWERCHART CBC with Differential (08/20/2015 7:22 PM CDT) athologist Signature Leukocytes 5.8 3.5 - 10.5 POWERCHART X109L Erythrocytes 4.25 3.90 - POWERCHART 5.03 [id number] Hemoglobin 12.5 12.0 - POWERCHART 15.5 GDL [...] LAB BLOOD ADD-ON Performing Organization Address City/[facility]/ZIP Code Phon e Number POWERCHART Urinalysis, Midstream, with culture if indicated (08/20/2015 7:10 PM CDT) [facility] gist Method Time Signature HXUr Color Yellow Colorless POWERCHART Clarity Clear Clear POWERCHART Glucose Negative Negative MGDL POWERCHART HXBILIRUBIN Negative Negative POWERCHART Ketones, QL(U) Negative Negative MGDL POWERCHART Specific 1.015 POWERCHART [place], POCT, U Comment: Reference Range Specific [place]: 1.000-1.035 HXBLOOD Negative Negative POWERCHART pH, POCT, [...]
--- OUTSIDE RECORDS SUMMARY | 2022-02-21 09:01 | XMS_ITS | Encounter Summary ---
:1935 Author Organization [facility] Address [address] [place] [address] Care Team Providers Name Role Phone Unavailable Primary Care Provider Unavailable Encounter Details Date Type Department Care Team Description 10/19/2014 - [facility] Daniel Cox, 10/24/2014 [facility] [address] [place] [address] (Wo rk) Social History Tobacco Use Types [...] Baldwin M.D. - 10/24/2014 12:00 AM CDT [id number] REVISION HISTORY 10/26/2014 at 3:14 pm - [...] BALDWIN MD On: 10/27/2014 07:34 AM Source: [facility]SDOLBEYNONRADSYS Document Id: [id number] documented in this encounter Progress Notes Jose Daniel Baldwin M.D. - 10/23/2014 12:00 AM CDT [id number] SUBJECTIVE: Patient wishes to shower. Will change [...] BALDWIN MD On: 10/24/2014 07:05 AM Source: [facility] Document Id: [id number] Jose Daniel Baldwin M.D. - 10/22/2014 12:00 AM CDT [id number] SUBJECTIVE: Patient complains of no new symptoms. [...] oral intake. Ambulate 3 times a day. 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 Monitor hypotension. Check urinalysis in the morning. Jose Daniel Baldwin M.D./pos Electronically Signed By: JOSE DANIEL BALDWIN MD On: 10/22/2014 11:43 AM Source: [facility]BE[facility] Document Id: [id number] Jose Daniel Baldwin M.D. - 10/21/2014 12:00 AM CDT [id number] SUBJECTIVE: Patient continues to improve with the [...] BALDWIN MD On: 10/21/2014 01:00 PM Source: [facility] Document Id: [id number] Jose Daniel Baldwin M.D. - 10/20/2014 12:00 AM CDT [id number] SUBJECTIVE: Patient feeling better, more color, no [...] BALDWIN MD On: 10/21/2014 07:53 AM Source: [facility] Document Id: [id number] documented in this encounter Procedure Notes Abraham [...] PETERSEN RN - 10/20/2014 11:35 CDT Source: [facility] Document Id: [id number] CDT!19 Abraham Petersen R.N. - 10/20/2014 11:10 [...] PETERSEN RN - 10/20/2014 11:10 CDT Source: [facility] Document Id: [id number] CDT!13 documented in this encounter Consult Notes [...] ALEJO PharmD - 10/20/2014 15:14 CDT Source: [facility] Document Id: [id number] CDT!7 Nan Abbott, R.Ph. - 10/19/2014 11:37 PM CDT Pharmacy Clinical Interventions Document Has Been Updated Pharmacy Clinical Interventions Entered On: 10/19/2014 23:39 CDT Performed On: 10/19/2014 23:37 CDT by NAN ABBOTT [facility] Clinical Interventions Intervention Task Status : Completed Intervention Status : Completed Pharmacist Intervention Time : 11-15 Minutes NAN PAZ - 10/21/2014 13:00 CDT Intervention Type Pharmacy : Dose Adjustment (Renal/Hepatic) Prescriber Response Pharmacy : Accepted NAN ABBOTT [facility] - 10/19/2014 23:37 CDT Pharmacy [...] evaluate at that time. This is a [facility] patient, so rounding hospitalist does not cover, contact global consumer sector vice president MD for [facility]. ADDM: SCr-2.7, CrCl~17. Spoke with Dr. Ed Baldwin and changed Lovenox to heparin 5000 units q12hrs. NAN PAZ - 10/21/2014 13:00 CDT Source: [facility] Document Id: [id number] CDT!6 documented in this encounter Nursing Notes Aleksandar Alas - 10/24/2014 7:17 AM CDT Cardiac Monitoring Cardiac Monitoring Entered On: 10/24/2014 8:27 CDT Performed On: 10/24/2014 7:17 CDT by NAKHORNSAK, EMBERLY Cardiac Monitoring Monitoring Lead : II, V1/MCL1 Ventricular Rate : 79 bpm Ventricular Rhythm : Regular NH Interval : 0.19 QRS Duration : 0.05 second(s) QT Interval : 0.36 second(s) NH Consistency : Consistent QRS Consistency : Consistent ST Segment : Isoelectric Ectopy Frequency : Rare (1-3/min) Cardiac Rhythm Tech : Sinus rhythm, PVC, PJC ALEKSANDAR ALAS - 10/24/2014 8:27 CDT Source: [facility] Document Id: [id number] CDT!13 Dave Mercado R.N. - 10/24/2014 4:30 AM CDT Cardiac Monitoring Cardiac Monitoring Entered On: 10/24/2014 6:36 CDT Performed On: 10/24/2014 4:30 CDT by DAVE MERCADO RN Cardiac Monitoring Monitoring Lead : II, V1/MCL1 Atrial Rate : 72 bpm Atrial Rhythm : Regular Ventricular Rate : 72 bpm Ventricular Rhythm : Regular NH Interval : 0.17 P to QRS Ratio : 1:1 QRS Duration : 0.09 second(s) QT Interval : 0.35 second(s) NH Consistency : Consistent QRS Consistency : Consistent ST Segment : Isoelectric Ectopy Frequency : Occasional (4-8/min) Cardiac Rhythm Tech : Sinus rhythm DAVE MERCADO RN - 10/24/2014 6:35 CDT Source: [facility] Document Id: [id number] CDT!16 Dave Mercado R.N. - 10/23/2014 8:10 PM CDT Cardiac Monitoring Cardiac Monitoring Entered On: 10/24/2014 2:51 CDT Performed On: 10/23/2014 20:10 CDT by DAVE MERCADO RN Cardiac Monitoring Monitoring Lead : II, V1/MCL1 Atrial Rate : 82 bpm Atrial Rhythm : Regular Ventricular Rate : 82 bpm Ventricular Rhythm : Regular NH Interval : 0.14 P to QRS Ratio : 8:9 QRS Duration : 0.07 second(s) QT Interval : 0.36 second(s) NH Consistency : Consistent QRS Consistency : Consistent ST Segment : Isoelectric Ectopy Frequency : Rare (1-3/min) Cardiac Rhythm Tech : Sinus rhythm, PVC DAVE MERCADO RN - 10/24/2014 2:49 CDT Source: [facility] [employer] Document Id: [id number] CDT!16 Gume Cooley R.N. - 10/23/2014 6:32 PM CDT Patient had 4 small semi formed dark greenish stool today.No nausea.vitals stable.Tele SR with occational pacs.DENIED CHEST PAIN.Ambulated in the [address] and toleratedwell. Electronically Signed By: GUME COOLEY RN On: 12/12/2015 07:59 PM Modified by and Electronically Signed by: GUME COOLEY RN On: 10/23/2014 06:34 PM Source: [facility] Document Id: [id number] Gume Cooley RAbimbola - 10/23/2014 5:21 PM CDT Cardiac Monitoring Cardiac Monitoring Entered On: 10/23/2014 17:22 CDT Performed On: 10/23/2014 17:21 CDT by GUME COOLEY RN Cardiac Monitoring Monitoring Lead : II Monitoring Lead Business Process Analyst : Other: q4h assesment Atrial Rate : 71 bpm Atrial Rhythm : Regular Ventricular Rate : 71 bpm Ventricular Rhythm : Regular NH Interval : 0.16 P to QRS Ratio : 1;1 QRS Duration : 0.06 second(s) QT Interval : 0.36 second(s) NH Consistency : Consistent QRS Consistency : Consistent ST Segment : Isoelectric Ectopy Frequency : None Cardiac Rhythm Tech : Sinus rhythm GUME COOLEY RN - 10/23/2014 17:21 CDT Source: [facility] Document Id: [id number] CDT!17 Abraham Castle - 10/23/2014 3:01 PM CDT Cardiac Monitoring Cardiac Monitoring Entered On: 10/23/2014 15:28 CDT Performed On: 10/23/2014 15:01 CDT by ABRAHAM CASTLE Cardiac Monitoring Monitoring Lead : II Ventricular Rate : 85 bpm Ventricular Rhythm : Regular NH Interval : 0.17 QRS Duration : 0.05 second(s) QT Interval : 0.33 second(s) (Comment: QTc 0.40 sec [ABRAHAM CASTLE - 10/23/2014 15:27 CDT] ) NH Consistency : Consistent QRS Consistency : Consistent ST Segment : Isoelectric Ectopy Frequency : Rare (1-3/min) Cardiac Rhythm Tech : Sinus rhythm, PVC ABRAHAM CASTLE - 10/23/2014 15:27 CDT Source: [facility] Document Id: [id number] CDT!13 Aleksandar Alas - 10/23/2014 1:41 PM CDT Cardiac Monitoring Cardiac Monitoring Entered On: 10/23/2014 13:42 CDT Performed On: 10/23/2014 13:41 CDT by ALEKSANDAR ALAS Cardiac Monitoring Ectopy Frequency : Rare (1-3/min) Ectopic Pattern : Couplets Cardiac Rhythm Tech : Sinus rhythm, PAC ALEKSANDAR ALAS - 10/23/2014 13:41 CDT Source: [facility] Document Id: [id number] CDT!5 Gume Cooley R.N. - 10/23/2014 12:29 PM CDT Cardiac Monitoring Cardiac Monitoring Entered On: 10/23/2014 13:56 CDT Performed On: 10/23/2014 12:29 CDT by GUME COOLEY RN Cardiac Monitoring Monitoring Lead : II Monitoring Lead Business Process Analyst : Other: Q4H ASSESMENT Atrial Rate : 75 bpm Atrial Rhythm : Regular Ventricular Rate : 75 bpm Ventricular Rhythm : Regular NH Interval : 0.18 P to QRS Ratio : 1:1 QRS Duration : 0.06 second(s) QT Interval : 0.36 second(s) NH Consistency : Consistent QRS Consistency : Consistent ST Segment : Isoelectric Ectopy Frequency : None Cardiac Rhythm Tech : Sinus rhythm GUME COOLEY RN - 10/23/2014 13:55 CDT Source: [facility] Document Id: [id number] CDT!17 Leti Matthews RDN, - 10/23/2014 11:25 AM CDT [...] LETI ESPINAL RDN - 10/23/2014 13:21 CDT [place] Body Weight : 61.3 kg [place] Body Weight Conversion to Pounds : 134.86 [...] ESPINAL RDN - 10/23/2014 11:25 CDT Source: [facility] Document Id: [id number] CDT!6 Evelyn David R.N. - 10/23/2014 10:07 AM CDT Cardiac Monitoring Cardiac Monitoring Entered On: 10/23/2014 10:13 CDT Performed On: 10/23/2014 10:07 CDT by EVELYN DAVID RN Cardiac Monitoring Monitoring Lead : II Atrial Rate : 84 bpm Atrial Rhythm : Regular Ventricular Rate : 84 bpm Ventricular Rhythm : Regular NH Interval : 0.17 P to QRS Ratio : 1:1 QRS Duration : 0.06 second(s) QT Interval : 0.32 second(s) NH Consistency : Consistent QRS Consistency : Consistent ST Segment : Isoelectric Ectopy Frequency : None Cardiac Rhythm Tech : Sinus rhythm EVELYN DAVID RN - 10/23/2014 10:07 CDT Source: [facility] Document Id: [id number] CDT!16 Aleksandar Alas - 10/23/2014 7:02 AM CDT Cardiac Monitoring Cardiac Monitoring Entered On: 10/23/2014 7:51 CDT Performed On: 10/23/2014 7:02 CDT by ALEKSANDAR ALAS Cardiac Monitoring Monitoring Lead : II, V1/MCL1 Ventricular Rate : 69 bpm Ventricular Rhythm : Regular NH Interval : 0.19 QRS Duration : 0.07 second(s) QT Interval : 0.34 second(s) NH Consistency : Consistent QRS Consistency : Consistent ST Segment : Isoelectric Cardiac Rhythm Tech : Sinus rhythm ALEKSANDAR ALAS - 10/23/2014 7:50 CDT Source: [facility] Document Id: [id number] CDT!12 Vijaya Martin - 10/23/2014 5:29 AM CDT Cardiac Monitoring Cardiac Monitoring Entered On: 10/23/2014 5:29 CDT Performed On: 10/23/2014 5:29 CDT by VIJAYA MARTIN Cardiac Monitoring Ectopy Frequency : Occasional (4-8/min) Ectopic Pattern : Couplets Ectopy Description Business Process Analyst : Unifocal Cardiac Rhythm Tech : Sinus rhythm, PAC, PVC, PJC VIJAYA MARTIN - 10/23/2014 5:29 CDT Source: [facility] Document Id: [id number] CDT!6 Conversion, Historical Provider Ser - 10/23/2014 5:21 AM CDT Cardiac Monitoring Cardiac Monitoring Entered On: 10/23/2014 5:22 CDT Performed On: 10/23/2014 5:21 CDT by MIR SALINAS RN Cardiac Monitoring Monitoring Lead : II Atrial Rate : 66 bpm Atrial Rhythm : Regular Ventricular Rate : 66 bpm Ventricular Rhythm : Regular NH Interval : .18 P to QRS Ratio : 1-1 QRS Duration : 0.09 second(s) QT Interval : 0.38 second(s) NH Consistency : Consistent QRS Consistency : Consistent ST Segment : Isoelectric Cardiac Rhythm Tech : Sinus rhythm MIR SALINAS RN - 10/23/2014 5:21 CDT Source: [facility] Document Id: [id number] CDT!15 Conversion, Historical Provider Ser - 10/23/2014 12:55 AM CDT Cardiac Monitoring Cardiac Monitoring Entered On: 10/23/2014 0:56 CDT Performed On: 10/23/2014 0:55 CDT by MIR SALINAS RN Cardiac Monitoring Monitoring Lead : II Atrial Rate : 79 bpm Atrial Rhythm : Regular Ventricular Rate : 79 bpm Ventricular Rhythm : Regular NH Interval : .19 P to QRS Ratio : 1-1 QRS Duration : 0.06 second(s) QT Interval : 0.34 second(s) NH Consistency : Consistent QRS Consistency : Consistent ST Segment : Isoelectric Cardiac Rhythm Tech : Sinus rhythm MIR SALINAS RN - 10/23/2014 0:55 CDT Source: [facility] Document Id: [id number] CDT!15 Vijaya Martin - 10/22/2014 11:02 PM CDT Cardiac Monitoring Cardiac Monitoring Entered On: 10/22/2014 23:04 CDT Performed On: 10/22/2014 23:02 CDT by VIJAYA MARTIN Cardiac Monitoring Monitoring Lead : II, V1/MCL1 Monitoring Lead Business Process Analyst : Initiated Ventricular Rate : 89 bpm Ventricular Rhythm : Regular NH Interval : 0.16 QRS Duration : 0.08 second(s) QT Interval : 0.30 second(s) (Comment: QTc 0.36 [VIJAYA MARTIN - 10/22/2014 23:02 CDT] ) NH Consistency : Consistent QRS Consistency : Consistent ST Segment : Isoelectric Ectopy Frequency : Occasional (4-8/min) Ectopic Pattern : Other: PSVT run 7 beats HR 149 bpm Ectopy Description Business Process Analyst : Unifocal Cardiac Rhythm Tech : Sinus rhythm, PAC, PVC VIJAYA MARTIN - 10/22/2014 23:02 CDT Source: [facility] Document Id: [id number] CDT!16 Conversion, Historical Provider Ser - 10/22/2014 8:47 PM CDT Cardiac Monitoring Cardiac Monitoring Entered On: 10/22/2014 20:48 CDT Performed On: 10/22/2014 20:47 CDT by MIR ASLINAS RN Cardiac Monitoring Monitoring Lead : II Atrial Rate : 100 bpm Atrial Rhythm : Regular Ventricular Rate : 100 bpm Ventricular Rhythm : Regular NH Interval : .17 P to QRS Ratio : 1-1 QRS Duration : 0.07 second(s) QT Interval : 0.35 second(s) NH Consistency : Consistent QRS Consistency : Consistent ST Segment : Isoelectric Cardiac Rhythm Tech : Sinus rhythm AUNDREA SALINASELA Xander RN - 10/22/2014 20:47 CDT Source: [facility] Document Id: [id number] CDT!15 Juan Antonio Beckford R.N. - 10/22/2014 5:10 PM CDT Cardiac Monitoring Cardiac Monitoring Entered On: 10/22/2014 17:15 CDT Performed On: 10/22/2014 17:10 CDT by JUAN ANTONIO BECKFORD RN Cardiac Monitoring Monitoring Lead : II, V1/MCL1 Monitoring Lead Business Process Analyst : Other: continued Atrial Rate : 82 bpm Atrial Rhythm : Regular Ventricular Rate : 82 bpm Ventricular Rhythm : Regular NH Interval : 0.16 P to QRS Ratio : 1:1 QRS Duration : 0.09 second(s) QT Interval : 0.32 second(s) NH Consistency : Consistent QRS Consistency : Consistent ST Segment : Isoelectric Cardiac Rhythm Tech : Sinus rhythm, PAC JUAN ANTONIO BECKFORD RN - 10/22/2014 17:10 CDT Source: [facility] Document Id: [id number] CDT!16 Lisandra English - 10/22/2014 3:18 PM CDT Cardiac Monitoring Cardiac Monitoring Entered On: 10/22/2014 16:35 CDT Performed On: 10/22/2014 15:18 CDT by LISANDRA ENGLISH Cardiac Monitoring Monitoring Lead : II, V1/MCL1 Monitoring Lead Business Process Analyst : Initiated Ventricular Rate : 76 bpm Ventricular Rhythm : Regular NH Interval : 0.15 QRS Duration : 0.06 second(s) QT Interval : 0.34 second(s) NH Consistency : Consistent QRS Consistency : Consistent ST Segment : Isoelectric Cardiac Rhythm Tech : Sinus rhythm PRESTONJASMINLISANDRA - 10/22/2014 16:34 CDT Source: [facility] Document Id: [id number] CDT!13 Juan Antonio Beckford R.N. - 10/22/2014 12:20 PM CDT Cardiac Monitoring Cardiac Monitoring Entered On: 10/22/2014 17:16 CDT Performed On: 10/22/2014 12:20 CDT by JUAN ANTONIO BECKFORD RN Cardiac Monitoring Monitoring Lead : II, V1/MCL1 Monitoring Lead Business Process Analyst : Other: continued Atrial Rate : 74 bpm Atrial Rhythm : Regular Ventricular Rate : 74 bpm Ventricular Rhythm : Regular NH Interval : 0.17 P to QRS Ratio : 1:1 QRS Duration : 0.11 second(s) QT Interval : 0.36 second(s) NH Consistency : Consistent QRS Consistency : Consistent ST Segment : Isoelectric Ectopy Frequency : Occasional (4-8/min) Cardiac Rhythm Tech : Sinus rhythm, PAC JUAN ANTONIO BECKFORD RN - 10/22/2014 17:15 CDT Source: [facility] Document Id: [id number] CDT!17 Juan Antonio Beckford RAbimbola - 10/22/2014 10:01 AM CDT Cardiac Monitoring Cardiac Monitoring Entered On: 10/22/2014 10:02 CDT Performed On: 10/22/2014 10:01 CDT by JUAN ANTONIO BECKFORD RN Cardiac Monitoring Monitoring Lead : II, V1/MCL1 Monitoring Lead Business Process Analyst : Other: continued monitoring Atrial Rate : 73 bpm Atrial Rhythm : Regular Ventricular Rate : 73 bpm Ventricular Rhythm : Regular NH Interval : 0.18 P to QRS Ratio : 1:1 QRS Duration : 0.09 second(s) QT Interval : 0.36 second(s) NH Consistency : Consistent QRS Consistency : Consistent ST Segment : Isoelectric Ectopy Frequency : Occasional (4-8/min) Ectopy Description Business Process Analyst : Unifocal Cardiac Rhythm Tech : Sinus rhythm, PAC JUAN ANTONIO BECKFORD RN - 10/22/2014 10:01 CDT Source: [facility] Document Id: [id number] CDT!18 Lisandra English - 10/22/2014 7:18 AM CDT Cardiac Monitoring Cardiac Monitoring Entered On: 10/22/2014 7:53 CDT Performed On: 10/22/2014 7:18 CDT by LISANDRA ENGLISH Cardiac Monitoring Monitoring Lead : II, V1/MCL1 Monitoring Lead Business Process Analyst : Initiated Ventricular Rate : 73 bpm Ventricular Rhythm : Regular NH Interval : 0.17 QRS Duration : 0.06 second(s) QT Interval : 0.37 second(s) NH Consistency : Consistent QRS Consistency : Consistent ST Segment : Isoelectric Cardiac Rhythm Tech : Sinus rhythm LISANDRA ENGLISH - 10/22/2014 7:53 CDT Source: [facility] Document Id: [id number] CDT!13 Conversion, Historical Provider Ser - 10/22/2014 [...] SALINAS RN - 10/22/2014 6:28 CDT Source: [facility] Document Id: [id number] CDT!8 Vijaya Martin - 10/22/2014 5:33 AM CDT Cardiac Monitoring Cardiac Monitoring Entered On: 10/22/2014 5:34 CDT Performed On: 10/22/2014 5:33 CDT by VIJAYA MARTIN Cardiac Monitoring Ectopy Frequency : Rare (1-3/min) Ectopic Pattern : Couplets Ectopy Description Business Process Analyst : Unifocal Cardiac Rhythm Tech : Sinus rhythm, PAC, PVC VIJAYA MARTIN - 10/22/2014 5:33 CDT Source: [facility] Document Id: [id number] CDT!6 Conversion, Historical Provider Ser - 10/22/2014 5:13 AM CDT Cardiac Monitoring Cardiac Monitoring Entered On: 10/22/2014 5:13 CDT Performed On: 10/22/2014 5:13 CDT by MIR SALINAS RN Cardiac Monitoring Monitoring Lead : II Atrial Rate : 77 bpm Atrial Rhythm : Regular Ventricular Rate : 77 bpm Ventricular Rhythm : Regular NH Interval : .19 P to QRS Ratio : 1-1 QRS Duration : 0.07 second(s) QT Interval : 0.34 second(s) NH Consistency : Consistent QRS Consistency : Consistent ST Segment : Isoelectric Cardiac Rhythm Tech : Sinus rhythm MIR SALINAS RN - 10/22/2014 5:13 CDT Source: [facility] Document Id: [id number] CDT!15 Conversion, Historical Provider Ser - 10/22/2014 12:54 AM CDT Cardiac Monitoring Cardiac Monitoring Entered On: 10/22/2014 0:55 CDT Performed On: 10/22/2014 0:54 CDT by MIR SALINAS RN Cardiac Monitoring Monitoring Lead : II Atrial Rate : 72 bpm Atrial Rhythm : Regular Ventricular Rate : 72 bpm Ventricular Rhythm : Regular NH Interval : .20 P to QRS Ratio : 1-1 QRS Duration : 0.08 second(s) QT Interval : 0.35 second(s) NH Consistency : Consistent QRS Consistency : Consistent ST Segment : Isoelectric Cardiac Rhythm Tech : Sinus rhythm MIR SALINAS RN - 10/22/2014 0:54 CDT Source: [facility] Document Id: [id number] CDT!15 Vijaya Martin - 10/21/2014 11:13 PM CDT Cardiac Monitoring Cardiac Monitoring Entered On: 10/21/2014 23:17 CDT Performed On: 10/21/2014 23:13 CDT by VIJAYA MARTIN Cardiac Monitoring Monitoring Lead : II, V1/MCL1 Monitoring Lead Business Process Analyst : Initiated Ventricular Rate : 74 bpm Ventricular Rhythm : Regular NH Interval : 0.14 QRS Duration : 0.06 second(s) QT Interval : 0.33 second(s) NH Consistency : Consistent QRS Consistency : Consistent ST Segment : Isoelectric Ectopy Frequency : Occasional (4-8/min) Ectopic Pattern : Other: PAT run 5 beats HR 121 bpm Ectopy Description Business Process Analyst : Unifocal Cardiac Rhythm Tech : Sinus rhythm, PAC, PVC VIJAYA MARTIN - 10/21/2014 23:13 CDT Source: [facility] Document Id: [id number] CDT!16 Conversion, Historical Provider Ser - 10/21/2014 10:10 PM CDT Cardiac Monitoring Cardiac Monitoring Entered On: 10/21/2014 22:11 CDT Performed On: 10/21/2014 22:10 CDT by MIR SALINAS RN Cardiac Monitoring Monitoring Lead : II Atrial Rate : 77 bpm Atrial Rhythm : Regular Ventricular Rate : 77 bpm Ventricular Rhythm : Regular NH Interval : .14 P to QRS Ratio : 1-1 QRS Duration : 0.06 second(s) QT Interval : 0.36 second(s) NH Consistency : Consistent QRS Consistency : Consistent ST Segment : Isoelectric Cardiac Rhythm Tech : Sinus rhythm MIR SALINAS RN - 10/21/2014 22:10 CDT Source: [facility] Document Id: [id number] CDT!15 Juan Antonio Beckford R.N. - 10/21/2014 4:25 PM CDT Cardiac Monitoring Cardiac Monitoring Entered On: 10/21/2014 16:25 CDT Performed On: 10/21/2014 16:25 CDT by JUAN ANTNOIO BECKFORD RN Cardiac Monitoring Monitoring Lead : II, V1/MCL1 Monitoring Lead Business Process Analyst : Other: conitnued monitoring Atrial Rate : 73 bpm Atrial Rhythm : Regular Ventricular Rate : 73 bpm Ventricular Rhythm : Regular NH Interval : 0.18 P to QRS Ratio : 1:1 QRS Duration : 0.08 second(s) QT Interval : 0.35 second(s) NH Consistency : Consistent QRS Consistency : Consistent ST Segment : Isoelectric Ectopy Frequency : Rare (1-3/min) Ectopy Description Business Process Analyst : Unifocal Cardiac Rhythm Tech : Sinus rhythm, PVC JUAN ANTONIO BECKFORD RN - 10/21/2014 16:25 CDT Source: [facility] Document Id: [id number] CDT!18 Lisandra English - 10/21/2014 3:06 PM CDT Cardiac Monitoring Cardiac Monitoring Entered On: 10/21/2014 15:29 CDT Performed On: 10/21/2014 15:06 CDT by LISANDRA ENGLISH Cardiac Monitoring Monitoring Lead : II, V1/MCL1 Monitoring Lead Business Process Analyst : Initiated Ventricular Rate : 78 bpm Ventricular Rhythm : Regular NH Interval : 0.17 QRS Duration : 0.06 second(s) QT Interval : 0.33 second(s) NH Consistency : Consistent QRS Consistency : Consistent ST Segment : Isoelectric Cardiac Rhythm Tech : Sinus rhythm LISANDRA ENGLISH - 10/21/2014 15:29 CDT Source: [facility] Document Id: [id number] CDT!13 Juan Antonio Beckford R.N. - 10/21/2014 12:00 PM CDT Cardiac Monitoring Cardiac Monitoring Entered On: 10/21/2014 15:12 CDT Performed On: 10/21/2014 12:00 CDT by JUAN ANTONIO BECKFORD RN Cardiac Monitoring Monitoring Lead : II, V1/MCL1 Monitoring Lead Business Process Analyst : Other: continued monitoring Atrial Rate : 72 bpm Atrial Rhythm : Regular Ventricular Rate : 72 bpm Ventricular Rhythm : Regular NH Interval : 0.17 P to QRS Ratio : 1:1 QRS Duration : 0.09 second(s) QT Interval : 0.35 second(s) NH Consistency : Consistent QRS Consistency : Consistent ST Segment : Isoelectric Ectopy Frequency : Rare (1-3/min) Cardiac Rhythm Tech : Sinus rhythm, PVC JUAN ANTONIO BECKFORD RN - 10/21/2014 15:10 CDT Source: [facility] Document Id: [id number] CDT!17 Juan Antonio Beckford R.N. - 10/21/2014 8:00 AM CDT Cardiac Monitoring Cardiac Monitoring Entered On: 10/21/2014 15:13 CDT Performed On: 10/21/2014 8:00 CDT by JUAN ANTONIO BECKFORD RN Cardiac Monitoring Monitoring Lead : II, V1/MCL1 Monitoring Lead Business Process Analyst : Other: continued Atrial Rate : 80 bpm Atrial Rhythm : Regular Ventricular Rate : 80 bpm Ventricular Rhythm : Regular NH Interval : 0.16 P to QRS Ratio : 1:1 QRS Duration : 0.08 second(s) QT Interval : 0.34 second(s) NH Consistency : Consistent QRS Consistency : Consistent ST Segment : Isoelectric Ectopy Frequency : None Cardiac Rhythm Tech : Sinus rhythm JUAN ANTONIO BECKFORD RN - 10/21/2014 15:12 CDT Source: [facility] Document Id: [id number] CDT!17 Lisandra English - 10/21/2014 7:21 AM CDT Cardiac Monitoring Cardiac Monitoring Entered On: 10/21/2014 8:25 CDT Performed On: 10/21/2014 7:21 CDT by LISANDRA ENGLISH Cardiac Monitoring Monitoring Lead : II, V1/MCL1 Monitoring Lead Business Process Analyst : Initiated Ventricular Rate : 71 bpm Ventricular Rhythm : Regular NH Interval : 0.19 QRS Duration : 0.06 second(s) QT Interval : 0.35 second(s) NH Consistency : Consistent QRS Consistency : Consistent ST Segment : Isoelectric Cardiac Rhythm Tech : Sinus rhythm LISANDRA ENGLISH - 10/21/2014 8:25 CDT Source: [facility] Document Id: [id number] CDT!13 Juan Antonio Beckford RXeniaN. - 10/21/2014 7:05 AM CDT Cardiac Monitoring Cardiac Monitoring Entered On: 10/21/2014 15:14 CDT Performed On: 10/21/2014 7:05 CDT by JUAN ANTONIO BECKFORD RN Cardiac Monitoring Monitoring Lead : II, V1/MCL1 Monitoring Lead Business Process Analyst : Other: Moved to Tele Box from [facility], [place] Atrial Rate : 77 bpm Atrial Rhythm : Regular Ventricular Rate : 77 bpm Ventricular Rhythm : Regular NH Interval : 0.18 P to QRS Ratio : 1:1 QRS Duration : 0.09 second(s) QT Interval : 0.35 second(s) NH Consistency : Consistent QRS Consistency : Consistent ST Segment : Isoelectric Ectopy Frequency : Rare (1-3/min) Ectopy Description Business Process Analyst : Unifocal Cardiac Rhythm Tech : Sinus rhythm, PVC JUAN ANTONIO BECKFORD RN - 10/21/2014 15:13 CDT Source: [facility] Document Id: [id number] CDT!18 Conversion, Historical Provider Ser - 10/21/2014 [...] SALINAS RN - 10/21/2014 5:36 CDT Source: [facility] Document Id: [id number] CDT!6 Conversion, Historical Provider Ser - 10/21/2014 5:28 AM CDT Cardiac Monitoring Cardiac Monitoring Entered On: 10/21/2014 5:29 CDT Performed On: 10/21/2014 5:28 CDT by MIR SALINAS RN Cardiac Monitoring Monitoring Lead : II Atrial Rate : 77 bpm Atrial Rhythm : Regular Ventricular Rate : 77 bpm Ventricular Rhythm : Regular NH Interval : .20 P to QRS Ratio : 1-1 QRS Duration : 0.09 second(s) QT Interval : 0.34 second(s) NH Consistency : Consistent QRS Consistency : Consistent ST Segment : Isoelectric Cardiac Rhythm Tech : Sinus rhythm MIR SALINAS RN - 10/21/2014 5:28 CDT Source: [facility] Document Id: [id number] CDT!15 Vijaya Martin - 10/21/2014 3:10 AM CDT Cardiac Monitoring Cardiac Monitoring Entered On: 10/21/2014 3:40 CDT Performed On: 10/21/2014 3:10 CDT by VIJAYA MARTIN Cardiac Monitoring Monitoring Lead : II, V1/MCL1 Monitoring Lead Business Process Analyst : Initiated Ventricular Rate : 71 bpm Ventricular Rhythm : Regular NH Interval : 0.20 QRS Duration : 0.08 second(s) QT Interval : 0.34 second(s) (Comment: QTc 0.37 [VIJAYA MARTIN - 10/21/2014 3:38 CDT] ) NH Consistency : Consistent (Comment: Long NH [VIJAYA MARTIN - 10/21/2014 3:38 CDT] ) QRS Consistency : Consistent ST Segment : Isoelectric Ectopy Frequency : Rare (1-3/min) Ectopy Description Business Process Analyst : Unifocal Cardiac Rhythm Tech : Sinus rhythm, PAC, PVC, First degree heart block VIJAYA MARTIN - 10/21/2014 3:38 CDT Source: [facility] Document Id: [id number] CDT!15 Conversion, Historical Provider Ser - 10/21/2014 2:25 AM CDT Cardiac Monitoring Cardiac Monitoring Entered On: 10/21/2014 2:26 CDT Performed On: 10/21/2014 2:25 CDT by MIR SALINAS RN Cardiac Monitoring Monitoring Lead : II Atrial Rate : 70 bpm Atrial Rhythm : Regular Ventricular Rate : 70 bpm Ventricular Rhythm : Regular NH Interval : .17 P to QRS Ratio : 1-1 QRS Duration : 0.08 second(s) QT Interval : 0.37 second(s) NH Consistency : Consistent QRS Consistency : Consistent ST Segment : Isoelectric Cardiac Rhythm Tech : Sinus rhythm MIR SALINAS RN - 10/21/2014 2:25 CDT Source: [facility] Document Id: [id number] CDT!15 Conversion, Historical Provider Ser - 10/21/2014 12:48 AM CDT Cardiac Monitoring Cardiac Monitoring Entered On: 10/21/2014 0:50 CDT Performed On: 10/21/2014 0:48 CDT by MIR SALINAS RN Cardiac Monitoring Monitoring Lead : II Atrial Rate : 75 bpm Atrial Rhythm : Regular Ventricular Rate : 75 bpm Ventricular Rhythm : Regular NH Interval : .15 P to QRS Ratio : 1-1 QRS Duration : 0.08 second(s) QT Interval : 0.37 second(s) NH Consistency : Consistent QRS Consistency : Consistent ST Segment : Isoelectric Cardiac Rhythm Tech : Sinus rhythm MIR SALINAS RN - 10/21/2014 0:48 CDT Source: [facility] Document Id: [id number] CDT!15 Vijaya Martin - 10/20/2014 11:14 PM CDT Cardiac Monitoring Cardiac Monitoring Entered On: 10/20/2014 23:31 CDT Performed On: 10/20/2014 23:14 CDT by VIJAYA MARTIN Cardiac Monitoring Monitoring Lead : II, V1/MCL1 Monitoring Lead Business Process Analyst : Initiated Ventricular Rate : 76 bpm Ventricular Rhythm : Regular NH Interval : 0.18 QRS Duration : 0.08 second(s) QT Interval : 0.35 second(s) (Comment: QTc 0.39 [VIJAYA MARTIN - 10/20/2014 23:31 CDT] ) NH Consistency : Consistent QRS Consistency : Consistent ST Segment : Isoelectric Ectopy Frequency : Rare (1-3/min) Ectopy Description Business Process Analyst : Unifocal Cardiac Rhythm Tech : Sinus rhythm, PAC, PVC VIJAYA MARTIN - 10/20/2014 23:31 CDT Source: [facility] Document Id: [id number] CDT!15 Vijaya Martin - 10/20/2014 7:16 PM CDT Cardiac Monitoring Cardiac Monitoring Entered On: 10/20/2014 19:17 CDT Performed On: 10/20/2014 19:16 CDT by VIJAYA MARTIN Cardiac Monitoring Monitoring Lead : II, V1/MCL1 Monitoring Lead Business Process Analyst : Initiated Ventricular Rate : 74 bpm Ventricular Rhythm : Regular NH Interval : 0.18 P to QRS Ratio : 1:1 QRS Duration : 0.06 second(s) QT Interval : 0.34 second(s) (Comment: QTc 0.37 [VIJAYA MARTIN - 10/20/2014 19:16 CDT] ) NH Consistency : Consistent QRS Consistency : Consistent ST Segment : Isoelectric Cardiac Rhythm Tech : Sinus rhythm VIJAYA MARTIN - 10/20/2014 19:16 CDT Source: [facility] Document Id: [id number] CDT!14 Alicia Sheikh R.N. - 10/20/2014 4:30 PM CDT Cardiac Monitoring Cardiac Monitoring Entered On: 10/20/2014 18:42 CDT Performed On: 10/20/2014 16:30 CDT by ALICIA SHEIKH painter airbrush Monitoring Monitoring Lead : II Atrial Rate : 74 bpm Atrial Rhythm : Regular Ventricular Rate : 74 bpm Ventricular Rhythm : Regular NH Interval : .19 P to QRS Ratio : 1:1 QRS Duration : 0.07 second(s) QT Interval : 0.35 second(s) NH Consistency : Consistent QRS Consistency : Consistent ST Segment : Isoelectric Ectopy Frequency : None Cardiac Rhythm Tech : Sinus rhythm ALICIA SHEIKH RN - 10/20/2014 18:42 CDT Source: [facility] Document Id: [id number] CDT!16 Lisandra English - 10/20/2014 3:03 PM CDT Cardiac Monitoring Cardiac Monitoring Entered On: 10/20/2014 15:17 CDT Performed On: 10/20/2014 15:03 CDT by LISANDRA ENGLISH Cardiac Monitoring Monitoring Lead : II, V1/MCL1 Monitoring Lead Business Process Analyst : Initiated Ventricular Rate : 82 bpm Ventricular Rhythm : Regular NH Interval : 0.20 QRS Duration : 0.04 second(s) QT Interval : 0.34 second(s) NH Consistency : Consistent QRS Consistency : Consistent ST Segment : Isoelectric Cardiac Rhythm Tech : Sinus rhythm LISANDRA ENGLISH - 10/20/2014 15:17 CDT Source: [facility] Document Id: [id number] CDT!13 Alicia Sheikh R.N. - 10/20/2014 1:25 PM CDT Cardiac Monitoring Document Has Been Updated Cardiac Monitoring Entered On: 10/20/2014 14:11 CDT Performed On: 10/20/2014 13:25 CDT by ALICIA SHEIKH RN Cardiac Monitoring Monitoring Lead : II Atrial Rate : 80 bpm Atrial Rhythm : Regular Ventricular Rate : 80 bpm Ventricular Rhythm : Regular NH Interval : .18 P to QRS Ratio : 1:1 QRS Duration : 0.09 second(s) ALICIA SHEIKH RN - 10/20/2014 14:11 CDT QT Interval : 0.40 second(s) ALICIA SHEIKH RN - 10/20/2014 14:12 CDT NH Consistency : Consistent ST Segment : Isoelectric Ectopy Frequency : None Cardiac Rhythm Tech : Sinus rhythm ALICIA SHEIKH RN - 10/20/2014 14:11 CDT Source: [facility] Document Id: [id number] CDT!3 Alicia Sheikh R.N. - 10/20/2014 8:12 AM CDT Cardiac Monitoring Cardiac Monitoring Entered On: 10/20/2014 8:13 CDT Performed On: 10/20/2014 8:12 CDT by ALICIA SHEIKH RN Cardiac Monitoring Monitoring Lead : II Atrial Rate : 81 bpm Atrial Rhythm : Regular Ventricular Rate : 81 bpm Ventricular Rhythm : Regular NH Interval : .18 P to QRS Ratio : 1:1 QRS Duration : 0.08 second(s) QT Interval : 0.37 second(s) NH Consistency : Consistent QRS Consistency : Consistent ST Segment : Isoelectric Ectopy Frequency : None Cardiac Rhythm Tech : Sinus rhythm ALICIA SHEIKH RN - 10/20/2014 8:12 CDT Source: [facility] Document Id: [id number] CDT!16 Lisandra English - 10/20/2014 7:14 AM CDT Cardiac Monitoring Cardiac Monitoring Entered On: 10/20/2014 7:36 CDT Performed On: 10/20/2014 7:14 CDT by LISANDRA ENGLISH Cardiac Monitoring Monitoring Lead : II, V1/MCL1 Monitoring Lead Business Process Analyst : Initiated Ventricular Rate : 77 bpm Ventricular Rhythm : Regular NH Interval : 0.21 QRS Duration : 0.05 second(s) QT Interval : 0.38 second(s) NH Consistency : Consistent QRS Consistency : Consistent ST Segment : Isoelectric Cardiac Rhythm Tech : Sinus rhythm, First degree heart block LISANDRA ENGLISH - 10/20/2014 7:35 CDT Source: [facility] Document Id: [id number] CDT!13 Alisha Walton RAbimbola - 10/20/2014 6:40 AM CDT end of shift Slept fairly well. Denies any chilling or nausea and dizziness this am. [place] [facility] [place] Feels thirsty. Son at bedside this am. Electronically Signed By: ALISHA WALTON RN On: 10/20/2014 06:41 AM Source: [facility] Document Id: [id number] Tej Cox - 10/20/2014 5:52 AM CDT Cardiac Monitoring Cardiac Monitoring Entered On: 10/20/2014 5:52 CDT Performed On: 10/20/2014 5:52 CDT by TEJ COX Cardiac Monitoring Monitoring Lead : II, V1/MCL1 Ventricular Rate : 83 bpm Ventricular Rhythm : Regular NH Interval : 0.19 QRS Duration : 0.10 second(s) QT Interval : 0.35 second(s) Cardiac Rhythm Tech : Sinus rhythm TEJ COX - 10/20/2014 5:52 CDT Source: [facility] Document Id: [id number] CDT!9 Alisha Walton R.N. - 10/20/2014 5:38 [...] WALTON RN On: 10/20/2014 05:42 AM Source: [facility] Document Id: [id number] Alisha Walton R.N. - 10/20/2014 3:56 AM CDT Cardiac Monitoring Cardiac Monitoring Entered On: 10/20/2014 5:30 CDT Performed On: 10/20/2014 3:56 CDT by ALISHA WALTON RN Cardiac Monitoring Monitoring Lead : II Atrial Rate : 78 bpm Atrial Rhythm : Regular Ventricular Rate : 78 bpm Ventricular Rhythm : Regular NH Interval : 0.20 QRS Duration : 0.08 second(s) QT Interval : 0.39 second(s) NH Consistency : Consistent QRS Consistency : Consistent ST Segment : Isoelectric Ectopy Frequency : Rare (1-3/min) Cardiac Rhythm Tech : Sinus rhythm ALISHA WALTON RN - 10/20/2014 5:29 CDT Source: [facility] Document Id: [id number] CDT!15 documented in this encounter Miscellaneous Notes Miscellaneous - Conversion, Historical Provider Ser - 10/24/2014 8:20 AM CDT Coding Summary-Paper Based CODING DATE: 11/01/2014 FINAL [facility] STATUS: Disch/Trans w/in Inst Medicare Swing Bed PAYOR: Medicare Grouper: 872 MS-DRG Septicemia or severe sepsis w/o MV 96+ hours w/o [facility] ADMIT DX: [phone] Fever, Unspecified REASON FOR [...] DICK Date Saved: 11/01/2014 08:24 am Source: [facility] Document Id: [id number] Miscellaneous - Dave Mercado R.N. - 10/24/2014 12:07 AM CDT Adult Ongoing [...] Yes/No : No Nail Bed Color : [place] Capillary Refill : Less than 2 seconds Edema Assessment : No Monitored Rhythm : Yes Pacer : No DAVE MERCADO RN - 10/24/2014 0:57 CDT Cardiac Rhythm Techs Monitoring Lead : II, V1/MCL1 Atrial Rate : 80 bpm Atrial Rhythm : Regular Ventricular Rate : 80 bpm Ventricular Rhythm : Regular NH Interval : 0.17 P to QRS Ratio : 1:1 QRS Duration : 0.09 second(s) QT Interval : 0.38 second(s) NH Consistency : Consistent QRS Consistency : Consistent [...] to Meet Safety Needs : Yes (Comment: emmie GUNNs hearing aides [DAVE MERCADO 10/24/2014 1:56 CDT] ) DAVE MERCADO 10/24/2014 1:56 CDT Gastrointestinal Stool Color : Green Stool Description : Loose Stool Amount : Moderate GI Patient Stated Symptoms : Other: loose stools DAVE MERCADO 10/24/2014 2:48 CDT Abdomen Description : Symmetric Abdomen Palpation : Non-Tender, Soft DAVE MERCADO 10/24/2014 1:56 CDT Bowel Movement Last Date : 10/24/2014 CDT DAVE MERCADO 10/24/2014 2:48 CDT Bowel Sounds All Quadrants : Present DAVE MERCADO 10/24/2014 1:56 CDT Genitourinary Patient Stated Symptoms [...] Abnormality : Bruising Bruising Bruising DAVE MERCADO 10/24/2014 1:56 CDT DAVE MERCADO 10/24/2014 1:56 CDT DAVE MERCADO 10/24/2014 1:56 CDT Carpenter'S Helper Integumentary - Grid Carpenter'S Helper : Electrode Assessment/Action : Not removed Skin [...] : None Activity Tolerance : Without distress GARLANDDAVE Jaspreet 10/24/2014 1:56 CDT Peripheral IV Peripheral IV [...] Risk Score Hendrich II : 1 DAVE MERCADO RN - 10/24/2014 1:56 CDT Safe Patient [...] MERCADO RN - 10/24/2014 1:56 CDT [facility] Document Id: [id number] CDT!7 Miscellaneous - Dave Mercado RAbimbola - 10/23/2014 10:04 PM CDT Adult Activities [...] MERCADO RN - 10/23/2014 22:04 CDT Source: [facility] Document Id: [id number] CDT!10 Miscellaneous - Dave Mercado R.N. - [...] MERCADO RN - 10/23/2014 21:59 CDT Source: [facility] Document Id: [id number] CDT!39 Miscellaneous - Gume Cooley RAbimbola - [...] Yes/No : No Nail Bed Color : [place] Capillary Refill : Less than 2 seconds [...] GUME COOLEY DEONNA - 10/23/2014 16:47 CDT Trent Coma Eye Opening Response Marine : Spontaneously Best Verbal Response Marine : Oriented Best Motor Response Trent : Obeys simple commands Trent Coma Score : 15 GUME COOLEY DEONNA - 10/23/2014 16:47 CDT Oral Exam - Swing Bed Teeth and supporting structure for : No abnormality Oral Cavity Tissue for : No abnormality Gums for : No abnormality Are there any swollen lymph nodes in neck : No GUME COOLEY DEONNA - 10/23/2014 16:47 CDT Oral Assessment Lips : Smooth, pink, moist, intact Gingiva : [place], smooth, moist, intact Tongue : Smooth, pink, [...] : Small Passing Flatus : Yes ALFONZO ACHARYAEdilmaGUME Tanya YING - 10/23/2014 16:47 CDT Nutrition Home Diet : Regular Appetite : Good Eating Difficulties : None, Appetite change Feeding Ability : Complete independence Adaptive Feeding Equipment : Built-Up utensils GUME COOLEY RN - 10/23/2014 16:47 CDT Genitourinary Patient Stated Symptoms : None Urinary Elimination : Voiding, no difficulties Urine Color : Yellow Urine Description : Clear Urine Odor : Odorless Bladder Distention : Absent ALFONZO ECHAVARRIAMOEREBAEdilmaGUME Tanya YING - 10/23/2014 16:47 CDT Integumentary Integumentary Patient Stated Symptoms : Bruising Skin Turgor : Elastic Skin Integrity : Not intact Mucous Membrane Color : [place] Mucous Membrane Description : Moist ALFONZO ACHARYAEdilmaGUME RN - 10/23/2014 16:47 CDT Skin Abnormality/Location Grid Location : Abdomen Hand Laterality : Left, Right Left, Right Abnormality : Bruising Bruising ALFONZO ACHARYAEdilma GUME Tanya - 10/23/2014 16:47 CDT ALFONZO ELISEOREBAEdilma GUME Tanya - 10/23/2014 16:47 CDT Carpenter'S Helper Integumentary - Grid Carpenter'S Helper : Electrode Assessment/Action : Removed and reapplied Skin Appearance : Normal GUEM COOLEY - 10/23/2014 16:47 CDT Skin Color [...] : None Activity Tolerance : Without distress ALFONZO ACHARYAEdilmaGUME Tanya - 10/23/2014 16:47 CDT Peripheral IV Peripheral [...] COOLEY RN - 10/23/2014 16:47 CDT [facility] Document Id: [id number] CDT!187 Miscellaneous - Nabeel Garces - 10/23/2014 [...] NABEEL GARCES - 10/23/2014 13:34 CDT Source: [facility] Document Id: [id number] CDT!6 Miscellaneous - Gume Cooley, R.N. - [...] COOLEY RN - 10/23/2014 18:23 CDT Source: [facility] [employer] Document Id: [id number] CDT!3 Krystyna Warner - 10/23/2014 10:14 AM CDT Team Meeting Notes Team Meeting Notes Entered On: 10/23/2014 10:14 CDT Performed On: 10/23/2014 10:14 CDT by KRYSTYNA GROSS Team Notes Team Meeting Grid Discipline : Aerial Installer, Optical Engineer, Family, Nurse, Patient, Physical Therapist, Anthropology Instructor Topics : Medication, Plan of care Goal of the Day : Pt will likely switch to TCU today for ongoing IV antibiotics. KRYSTYNA GROSS - 10/23/2014 10:14 CDT Source: [facility] Document Id: [id number] CDT!7 Jarod - Gume Cooley RAbimbola - 10/23/2014 8:44 AM CDT Adult Ongoing [...] Yes/No : No Nail Bed Color : [place] Capillary Refill : Less than 2 seconds Edema Assessment : No Pacer : No GUME COOLEY Tanya YING - 10/23/2014 12:44 CDT Radial Pulse, Left [...] Pulse, Right : 2+ Normal GUME COOLEY Tanya YING - 10/23/2014 12:44 CDT Skin Color : Normal for ethnicity Skin Description : Dry Skin Temperature : Warm Activity Tolerance : Without distress ALFONZO ECHAVARRIAMOEREBAEdilmaGUME Tanya YING - 10/23/2014 12:44 CDT Neurological Neuro Patient Stated Symptoms : None Orientation : Oriented x 3 Level of Consciousness : Alert Gait : Steady Swallowing Difficulty/Aspiration Risk : None Last Well Time Known : Not applicable ALFONZO ACHARYAEdilmaGUME Tanya YING - 10/23/2014 12:44 CDT Trent Coma Eye Opening Response Trent : Spontaneously Best Verbal Response Trent : Oriented Best Motor Response Trent : Obeys simple commands Marine Coma Score : 15 GUME COOLEY Tanya YING - 10/23/2014 12:44 CDT Oral Exam - Swing Bed Teeth and supporting structure for : No abnormality Oral Cavity Tissue for : No abnormality Gums for : No abnormality Are there any swollen lymph nodes in neck : No ALFONZO ELISEOREBAEdilmaGUME Tanya YING - 10/23/2014 12:44 CDT Oral Assessment Lips : Smooth, pink, moist, intact Gingiva : [place], smooth, moist, intact Tongue : Smooth, pink, moist, intact Saliva : Thin, watery, plentiful ALFONZO LEMOEREBAEdilmaGUME Tanya YING - 10/23/2014 12:44 CDT Psycho/Emotional Affect/Behavior : Calm, Cooperative, Appropriate Pain Symptoms : No Feels Rested : Yes ALFONZO TENORIO JHONATANBrigitte Martínez RN - 10/23/2014 12:44 CDT Coping Grid [...] Integrity : Intact Mucous Membrane Color : [place] Mucous Membrane Description : Moist GUME COOLEY RN - 10/23/2014 12:44 CDT Skin Abnormality/Location Grid Location : Abdomen Hand Laterality : Left, Right Left, Right Abnormality : Bruising Bruising GUME COOLEY RN - 10/23/2014 12:44 CDT GUME COOLEY RN - 10/23/2014 12:44 CDT Carpenter'S Helper Integumentary - Grid Carpenter'S Helper : Electrode GUME COOLEY RN - 10/23/2014 [...] apparent problem Shawn Score : 22 ALFONZO ELISEOREBAEdilma JHONATANBrigitte Martínez RN - 10/23/2014 12:44 CDT Musculoskeletal Musculoskeletal [...] COOLEY RN - 10/23/2014 12:44 CDT Source: [facility] [employer] Document Id: [id number] CDT!179 Miscellaneous - Conversion, Historical Provider Ser [...] Yes/No : No Nail Bed Color : [place] Capillary Refill : Less than 2 seconds [...] - 10/22/2014 23:40 CDT Skin Color : [place] Skin Description : Normal Skin Temperature : Warm Activity Tolerance : Without distress MIR SALINAS RN - 10/22/2014 23:40 CDT Neurological Orientation : Oriented x 3 Level of Consciousness : Alert Gait : Steady Last Well Time Known : Not applicable MIR SALINAS RN - 10/22/2014 23:44 CDT Marine Coma Eye Opening Response Marine : Spontaneously Best Verbal Response Trent : Oriented Best Motor Response Trent : Obeys simple commands Marine Coma Score : 15 MIR SALINAS RN - 10/22/2014 23:44 CDT Oral Assessment Lips : Smooth, pink, moist, intact Gingiva : [place], smooth, moist, intact Tongue : Smooth, pink, [...] Integrity : Intact Mucous Membrane Color : [place] Mucous Membrane Description : Moist MIR SALINAS RN - 10/22/2014 23:44 CDT Carpenter'S Helper Integumentary - Grid Carpenter'S Helper : Electrode Assessment/Action : Not removed Skin Appearance : Normal MIR SALINAS RN - 10/22/2014 23:44 CDT Skin Color : [place] Skin Description : Normal Skin Temperature : [...] SALINAS RN - 10/22/2014 23:44 CDT Source: [facility] Document Id: [id number] CDT!118 Miscellaneous - Conversion, Historical Provider Ser [...] SALINAS RN - 10/22/2014 23:39 CDT Source: [facility] Document Id: [id number] CDT!12 Miscellaneous - Juan Antonio Beckford RXeniaNXenia - 10/22/2014 5:42 PM CDT Adult [...] Yes/No : Yes Nail Bed Color : [place] Capillary Refill : Less than 2 seconds [...] Last Well Time Known : Not applicable LÓPEZJAQUELIN MENDOZACyndi Bolton RN - 10/22/2014 17:42 CDT Marine Coma Eye Opening Response Trent : Spontaneously Best Verbal Response Trent : Oriented Best Motor Response Trent : Obeys simple commands Trent Coma Score : 15 JUAN ANTONIO BECKFORD [...] : Small Passing Flatus : Yes JUAN ANTONIO BECKFORD RN - 10/22/2014 17:42 CDT Nutrition [...] Integrity : Intact Mucous Membrane Color : [place] Mucous Membrane Description : Moist JUAN ANTONIO BECKFORD RN - 10/22/2014 17:42 CDT Carpenter'S Helper Integumentary - Grid Carpenter'S Helper : Electrode JUAN ANTONIO BECKFORD RN - [...] BECKFORD RN - 10/22/2014 17:42 CDT [facility] Document Id: [id number] CDT!107 Miscellaneous - Juan Antonio Beckford R.N. - 10/22/2014 9:26 AM CDT Adult Ongoing Assessment Adult Ongoing Assessment Entered On: 10/22/2014 9:28 CDT Performed On: 10/22/2014 9:26 CDT by JUAN ANTONIO BECKFORD RN Respiratory Respiratory Patient Stated Symptoms : None Respirations : Unlabored Respiratory Pattern : Regular All Lobes Breath Sounds : Clear Cough and Deep Breathe : Done Cough : None JUAN ANTONIO BECKFORD [facility] 10/22/2014 9:26 CDT Cardiovascular Heart Rhythm : Regular Heart Sounds ICU : S1S2 Antiembolism Device Yes/No : Yes Nail Bed Color : [place] Capillary Refill : Less than 2 seconds Edema Assessment : No JUAN ANTONIO BECKFORD [facility] 10/22/2014 9:26 CDT Radial Pulse, Left : 2+ Normal Radial Pulse, Right : 2+ Normal Dorsalis Pedis Pulse, Left : 2+ Normal Dorsalis Pedis Pulse, Right : 2+ Normal JUAN ANTONIO BECKFORD [facility] 10/22/2014 9:26 CDT Skin Color : Normal for ethnicity Skin Description : Normal Skin Temperature : Warm Activity Tolerance : Without distress JUAN ANTONIO BECKFORD [facility] 10/22/2014 9:26 CDT Antiembolism Device Antiembolism Device : Other: heparin JUAN ANTONIO BECKFORD [facility] 10/22/2014 9:26 CDT Neurological Neuro Patient Stated Symptoms : None Orientation : Oriented x 3 Level of Consciousness : Alert Gait : Steady Last Well Time Known : Not applicable JUAN ANTONIO BECKFORD [facility] 10/22/2014 9:26 CDT Trent Coma Eye Opening Response Trent : Spontaneously Best Verbal Response Marine : Oriented Best Motor Response Marine : Obeys simple commands Marine Coma Score : 15 JUAN ANTONIO BECKFORD [facility] 10/22/2014 9:26 CDT Psycho/Emotional Affect/Behavior : Calm, Cooperative, Appropriate Pain Symptoms : No JUAN ANTONIO BECKFORD [facility] 10/22/2014 9:26 CDT Coping Grid Identifies effective [...] incorporated appropriately : Yes JUAN ANTONIO BECKFORD - 10/22/2014 9:26 CDT Safety Grid Vision, Hearing, Mobility Adequate to Meet Safety Needs : Yes JUAN ANTONIO BECKFORD [facility] 10/22/2014 9:26 CDT Gastrointestinal GI Patient Stated [...] Integrity : Intact Mucous Membrane Color : [place] Mucous Membrane Description : Moist JUAN ANTONIO BECKFORD RN - 10/22/2014 9:26 CDT Carpenter'S Helper Integumentary - Grid Carpenter'S Helper : Electrode JUAN ANTONIO BECKFORD RN - 10/22/2014 9:26 CDT Skin Color : Normal for ethnicity Skin Description : Normal Skin Temperature : Warm JUAN ANTONIO BECKFORD RN - 10/22/2014 9:26 CDT Shawn Sensory Perception Shawn : No impairment Moisture Shawn : Rarely moist Activity Shawn : Walks frequently Mobility Shawn : No limitations Nutrition Shawn : Adequate Friction and [place] Shawn : No apparent problem Shawn Score : 22 JUAN ANTONIO BECKFORD RN - 10/22/2014 9:26 CDT Hendrich II [...] BECKFORD RN - 10/22/2014 9:26 CDT [facility] Document Id: [id number] CDT!109 Miscellaneous - Conversion, Historical Provider Ser [...] Yes/No : Yes Nail Bed Color : [place] Capillary Refill : Less than 2 seconds Edema Assessment : No Monitored Rhythm : Yes MIR SALINAS RN - 10/22/2014 1:11 CDT Radial Pulse, Left : 2+ Normal Radial Pulse, Right : 2+ Normal Dorsalis Pedis Pulse, Left : 2+ Normal Dorsalis Pedis Pulse, Right : 2+ Normal MIR SALINAS RN - 10/22/2014 1:11 CDT Skin Color : [place] Skin Description : Normal Skin Temperature : [...] MIR SALINAS RN - 10/22/2014 1:11 CDT Marine Coma Eye Opening Response Trent : Spontaneously Best Verbal Response Marine : Oriented Best Motor Response Trent : Obeys simple commands Trent Coma Score : 15 MIR SALINAS RN - 10/22/2014 1:11 CDT Oral Assessment Lips : Smooth, pink, moist, intact Gingiva : [place], smooth, moist, intact Tongue : Smooth, pink, [...] Integrity : Intact Mucous Membrane Color : [place] Mucous Membrane Description : Moist MIR SALINAS RN - 10/22/2014 1:11 CDT Carpenter'S Helper Integumentary - Grid Carpenter'S Helper : Electrode Assessment/Action : Not removed Skin Appearance : Normal MIR SALINAS RN - 10/22/2014 1:11 CDT Skin Color : [place] Skin Description : Normal Skin Temperature : [...] SALINAS RN - 10/22/2014 1:11 CDT Source: [employer] Document Id: [id number] CDT!146 Miscellaneous - Juan Antonio Beckford R.N. [...] Yes/No : Yes Nail Bed Color : [place] Capillary Refill : Less than 2 seconds [...] Response Marine : Spontaneously Best Verbal Response Trent : Oriented Best Motor Response Trent : Obeys simple commands Trent Coma Score : 15 JUAN ANTONIO BECKFORD [...] Safety Needs : Yes JUAN ANTONIO BECKFORD - 10/21/2014 18:51 CDT Gastrointestinal GI Patient Stated Symptoms : None Abdomen Description : Rounded, Symmetric Abdomen Palpation : Non-Tender, Soft Bowel Movement Last Date : 10/21/2014 CDT Bowel Sounds All Quadrants : Present Stool Description : Loose Stool Amount : Small LÓPEZJUAN ANTONIO BRIGGS - 10/21/2014 18:51 CDT Nutrition Home Diet : Renal Appetite : Fair Eating Difficulties : None Feeding Ability : Complete independence JUAN ANTONIO BECKFORD - 10/21/2014 18:51 CDT Genitourinary Patient Stated Symptoms : None Urinary Elimination : Voiding, no difficulties Urine Color : Yellow Urine Description : Clear Bladder Distention : Absent LÓPEZ JUAN ANTONIO M - 10/21/2014 18:51 CDT Integumentary Integumentary Patient Stated Symptoms : None Skin Turgor : Elastic Skin Integrity : Intact Mucous Membrane Color : [place] Mucous Membrane Description : Moist LÓPEZ JUAN ANTONIO M - 10/21/2014 18:51 CDT Carpenter'S Helper Integumentary - Grid Carpenter'S Helper : Electrode LÓPEZJUAN ANTONIO BRIGGS - 10/21/2014 18:51 CDT Skin Color : Normal for ethnicity Skin Description : Normal Skin Temperature : Warm JUAN ANTONIO BECKFORD - 10/21/2014 18:51 CDT Shawn Sensory Perception Shawn : No impairment Moisture Shawn : Rarely moist Activity Shawn : Walks frequently Mobility Shawn : No limitations Nutrition Shawn : Adequate Friction and Shear Shawn : No apparent problem Shawn Score : 22 LÓPEZ JUAN ANTONIO M - 10/21/2014 18:51 CDT [...] Risk Score Hendrich II : 4 LÓPEZJAQUELIN MENDOZAN Hoang - 10/21/2014 18:51 CDT Safe Patient Handling [...] BECKFORD RN - 10/21/2014 18:51 CDT Source: [facility] Document Id: [id number] CDT!114 Andrés Tabor R.N. - 10/21/2014 2:26 PM CDT Adult Activities of Daily Living Adult Activities of Daily Living Entered On: 10/21/2014 14:26 CDT Performed On: 10/21/2014 14:26 CDT by ANDRÉS INFANTE RN ADLs I Activity Status ADL : Bathroom privileges ANDRÉS INFANTE RN - 10/21/2014 14:26 CDT Source: [facility] Document Id: [id number] CDT!3 Jarod - Juan Antonio Beckford R.N. [...] Yes/No : Yes Nail Bed Color : [place] Capillary Refill : Less than 2 seconds Edema Assessment : No JUAN ANTONIO BECKOFRD [facility] 10/21/2014 10:13 CDT Radial Pulse, Left : 2+ Normal Radial Pulse, Right : 2+ Normal Dorsalis Pedis Pulse, Left : 2+ Normal Dorsalis Pedis Pulse, Right : 2+ Normal JUAN ANTONIO BECKFORD - 10/21/2014 10:13 CDT Skin Color : Normal for ethnicity Skin Description : Normal JUAN ANTONIO BECKFORD [facility] 10/21/2014 10:13 CDT Antiembolism Device Antiembolism Device : Other: lovenox JUAN ANTONIO BECKFORD [facility] 10/21/2014 10:13 CDT Neurological Neuro Patient Stated Symptoms : None Orientation : Oriented x 3 Level of Consciousness : Alert Gait : Steady Swallowing Difficulty/Aspiration Risk : None Last Well Time Known : Not applicable JUAN ANTONIO BECKFORD - 10/21/2014 10:13 CDT Marine Coma Eye Opening Response Marine : Spontaneously Best Verbal Response Marine : Oriented Best Motor Response Trent : Obeys simple commands Marine Coma Score : 15 JUAN ANTONIO BECKFORD - 10/21/2014 10:13 CDT Psycho/Emotional Affect/Behavior : Calm, Cooperative, Appropriate Pain Symptoms : No Feels Rested : Yes JUAN ANTONIO BECKFORD - 10/21/2014 10:13 CDT Coping Grid Identifies [...] incorporated appropriately : Yes JUAN ANTONIO BECKFORD - 10/21/2014 10:13 CDT Safety Grid Vision, Hearing, Mobility Adequate to Meet Safety Needs : Yes LÓPEZJUAN ANTONIO Wong [facility] 10/21/2014 10:13 CDT Gastrointestinal GI Patient Stated Symptoms : None Abdomen Description : Rounded, Symmetric Abdomen Palpation : Non-Tender, Soft Bowel Movement Last Date : 10/21/2014 CDT Bowel Sounds All Quadrants : Present Stool Description : Loose Passing Flatus : Yes ÓLPEZJUAN ANTONIO Wong - 10/21/2014 10:13 CDT Nutrition Appetite : Good Eating Difficulties : None Feeding Ability : Complete independence JUAN ANTONIO BECKFORD RN - 10/21/2014 10:13 CDT Genitourinary Patient Stated Symptoms : None Urinary Elimination : Voiding, no difficulties Urine Color : Yellow Urine Description : Clear Bladder Distention : Absent JUAN ANTONIO BECKFORD RN - 10/21/2014 10:13 CDT Integumentary Integumentary Patient Stated Symptoms : None Skin Turgor : Elastic Skin Integrity : Intact Mucous Membrane Color : [place] Mucous Membrane Description : Moist LÓPEZ, JUAN ANTONIO M RN - 10/21/2014 10:13 CDT Carpenter'S Helper Integumentary - Grid Carpenter'S Helper : Electrode Assessment/Action : Not removed JUAN ANTONIO BECKFORD Hoang - 10/21/2014 10:13 CDT Skin Color : Normal for ethnicity Skin Description : Normal Skin Temperature : Warm JUAN ANTONIO BECKFORD - 10/21/2014 10:13 CDT Shawn Sensory Perception Shawn : No impairment Moisture Shawn : Rarely moist Activity Shawn : Walks occasionally Mobility Shawn : No limitations Nutrition Shawn : Adequate Friction and Shear Shawn : No apparent problem Shawn Score : 21 LÓPEZJUAN ANTONIO BRIGGS Hoang - 10/21/2014 10:13 CDT Peripheral IV Peripheral [...] Dry, Transparent Flow/ Patency : No complications LÓPEZJUAN ANTONIO MENDOZA Hoang - 10/21/2014 10:13 CDT LÓPEZ JUAN ANTONIO [...] Fall Risk Score Hendrich II : 0 LÓPEZJUAN ANTONIO BRIGGS RN - 10/21/2014 10:13 CDT Safe Patient Handling [...] BECKFORD RN - 10/21/2014 10:13 CDT Source: [facility] Document Id: [id number] CDT!134 Miscellaneous - Conversion, Historical Provider Ser [...] Yes/No : Yes Nail Bed Color : [place] Capillary Refill : Less than 2 seconds Edema Assessment : No Monitored Rhythm : Yes MIR SALINAS RN - 10/21/2014 1:05 CDT Radial Pulse, Left : 2+ Normal Radial Pulse, Right : 2+ Normal Dorsalis Pedis Pulse, Left : 2+ Normal Dorsalis Pedis Pulse, Right : 2+ Normal MIR SALINAS RN - 10/21/2014 1:05 CDT Skin Color : [place] Skin Description : Normal Skin Temperature : Warm Activity Tolerance : Without distress MIR SALINAS RN - 10/21/2014 1:05 CDT Antiembolism Device Antiembolism Device : Foot pumps Antiembolism Device Laterality : Bilateral Antiembolism Device Removal Reason : Activity Antiembolism Device Status : Patient refused SALINASMIR Xander YING - 10/21/2014 1:05 CDT Neurological Neuro Patient Stated Symptoms : None Orientation : Oriented x 3 Level of Consciousness : Alert Gait : Steady Last Well Time Known : Not applicable MIR SALINAS RN - 10/21/2014 1:05 CDT Marine Coma Eye Opening Response Marine : To voice Best Verbal Response Trent : Oriented Best Motor Response Trent : Obeys simple commands Trent Coma Score : 14 MIR SALINAS RN - 10/21/2014 1:05 CDT Oral Assessment Lips : Smooth, pink, moist, intact Gingiva : [place], smooth, moist, intact Tongue : Smooth, pink, [...] to Meet Safety Needs : Yes (Comment: [employer]IN[employer] aides here out for the night [MIR [...] Integrity : Intact Mucous Membrane Color : [place] Mucous Membrane Description : Moist MIR SALINAS RN - 10/21/2014 1:05 CDT Carpenter'S Helper Integumentary - Grid Carpenter'S Helper : Electrode Assessment/Action : Not removed Skin Appearance : Normal MIR SALINAS RN - 10/21/2014 1:05 CDT Skin Color : [place] Skin Description : Normal Skin Temperature : [...] SALINAS RN - 10/21/2014 1:05 CDT Source: [employer] Document Id: [id number] CDT!135 Miscellaneous - Conversion, Historical Provider Ser [...] SALINAS RN - 10/21/2014 1:04 CDT Source: [facility] Document Id: [id number] CDT!11 Miscellaneous - Alicia Sheikh, RXeniaN. - 10/20/2014 3:40 PM CDT Adult Ongoing [...] Yes/No : Yes Nail Bed Color : [place] Capillary Refill : Less than 2 seconds [...] SHEIKH 10/20/2014 17:40 CDT Skin Color : [place] Skin Description : Dry Skin Temperature : Warm Activity Tolerance : Without distress ALICIA SHEIKH - 10/20/2014 17:40 CDT Antiembolism Device Antiembolism Device : Foot pumps, Sequential Compression Device Antiembolism Device Laterality : Bilateral Antiembolism Device Removal Reason : Activity ALICIA SHEIKH 10/20/2014 17:40 CDT Neurological Neuro Patient Stated Symptoms : None Level of Consciousness : Alert Gait : Steady Last Well Time Known : Not applicable ALICIA SHEIKH Jaspreet - 10/20/2014 17:40 CDT Trent Coma Eye Opening Response Marine : Spontaneously Best Verbal Response Trent : Oriented Best Motor Response Marine : Obeys simple commands Trent Coma Score : 15 ALICIA SHEIKH 10/20/2014 17:40 CDT Oral Assessment Lips : Smooth, pink, moist, intact Gingiva : [place], smooth, moist, intact Tongue : Smooth, pink, moist, intact Teeth : Patient has dentures Saliva : Thin, watery, plentiful ALICIA SHEIKH - 10/20/2014 17:40 CDT Psycho/Emotional Affect/Behavior : Calm, Cooperative Pain Symptoms : No ALICIA SHEIKH Jaspreet - 10/20/2014 17:40 CDT Coping Grid Identifies effective [...] Values/Beliefs incorporated appropriately : Yes ALICIA SHEIKH Jaspreet - 10/20/2014 17:40 CDT Safety Grid Vision, Hearing, Mobility Adequate to Meet Safety Needs : Yes JONADAMA ALICIA A 10/20/2014 17:40 CDT Gastrointestinal GI Patient Stated Symptoms : None Abdomen Description : Symmetric Abdomen Palpation : Soft Bowel Sounds All Quadrants : Present ALICIA SHEIKH RN - 10/20/2014 17:40 CDT Genitourinary Patient Stated Symptoms : None Urinary Elimination : Voiding, no difficulties Urine Color : Yellow, Light Urine Description : Clear Urine Odor : Odorless ILEANACYNTHIAALICIA RN - 10/20/2014 17:40 CDT Integumentary Integumentary Patient Stated Symptoms : None ALICIA SHEIKH RN - 10/20/2014 17:40 CDT Shawn Sensory Perception Shawn : No impairment Moisture Shawn : Rarely moist Activity Shawn : Walks frequently Mobility Shawn : No limitations Nutrition Shawn : Excellent Friction and Shear Shawn : No apparent problem Shawn Score : 23 ALICIA SHEIKH RN - 10/20/2014 17:40 CDT Peripheral IV Peripheral IV Assess/Intervention Grid Peripheral IV #1 Peripheral IV #2 IV Activity : Discontinue Start Number of Attempts : 1 Date of Insertion : 10/19/2014 CDT 10/20/2014 CDT IV Site : Antecubital Forearm Laterality : Left Left Catheter Size : 18 20 Catheter Type : Over the needle Over the needle Site Condition : No complications ALICIA SHEIKH RN - 10/20/2014 17:40 CDT ALICIA SHEIKH RN - 10/20/2014 17:40 CDT Hendrich II [...] : 0 ALICIA SHEIKH RN - 10/20/2014 17:40 CDT Safe Patient Handling Safe Pt Handling Independent : Yes - No equipment needed Safe Pt Handling Equipment Rec : No Equipment Needed ALICIA SHEIKH RN - 10/20/2014 17:40 CDT Source: [facility] Document Id: [id number] CDT!122 Miscellaneous - Krystyna Gross - 10/20/2014 9:00 AM CDT Team Meeting Notes Team Meeting Notes Entered On: 10/20/2014 9:01 CDT Performed On: 10/20/2014 9:00 CDT by KRYSTYNA GROSS Team Notes Team Meeting Grid Discipline : Aerial Installer, Family, Mitochondrial Disorders Counselor, Nurse, Patient, Anthropology Instructor Topics : Plan of care Goal of the Day : Pt was admitted with afib, low BP and urosepsis. She will be on some antibiotics. Comes from home alone and does well. KRYSTYNA GROSS - 10/20/2014 9:00 CDT Source: [facility] Document Id: [id number] CDT!7 Miscellaneous - Alicia Sheikh, R.NXenia - [...] SHEIKH RN - 10/20/2014 11:47 CDT Source: [facility] Document Id: [id number] CDT!17 Miscellaneous - Alicia Sheikh R.N. - [...] Yes/No : Yes Nail Bed Color : [place] Capillary Refill : Less than 2 seconds [...] - 10/20/2014 11:49 CDT Skin Color : [place] Skin Description : Dry Skin Temperature : [...] ALICIA SHEIKH RN - 10/20/2014 11:49 CDT Trent Coma Eye Opening Response Trent : Spontaneously Best Verbal Response Marine : Oriented Best Motor Response Trent : Obeys simple commands Marine Coma Score : 15 ALICIA SHEIKH RN - 10/20/2014 11:49 CDT Oral Assessment Lips : Smooth, pink, moist, intact Gingiva : [place], smooth, moist, intact Tongue : Smooth, pink, [...] Integrity : Intact Mucous Membrane Color : [place] Mucous Membrane Description : Moist Skin Color : [place] Skin Description : Dry Skin Temperature : [...] SHEIKH RN - 10/20/2014 11:49 CDT Source: [facility] Document Id: [id number] CDT!129 Miscellaneous - Alisha Walton R.N. - 10/20/2014 4:13 AM CDT Communication Note Document Has Been Updated Communication Note Entered On: 10/20/2014 4:29 CDT Performed On: 10/20/2014 4:13 CDT by ALISHA WALTON RN Communication Subject of Note : M.D. Notification Assessment Communication Note : notifed of low SBP's in 70's, checked on both arms and still low. Lungs CTA. ALISHA WALTON RN - 10/20/2014 4:27 CDT Intervention : New Orders Obtained, Read back order ALISHA WALTON RN - 10/20/2014 4:31 CDT Response : To give another 500ml NS bolus over 1hr. ALISHA WALTON RN - 10/20/2014 4:27 CDT Source: [facility] Document Id: [id number] CDT!3 Jarod - Alisha Walton R.N. - 10/20/2014 1:35 AM CDT Communication Note Communication Note Entered On: 10/20/2014 4:30 CDT Performed On: 10/20/2014 1:35 CDT by ALISHA WALTON RN Communication Subject of Note : Kelechi Notification Assessment Communication Note : notified of low SBP's low 80's. Has been sleeping fairly well. Intervention : New Orders Obtained, Read back order ALISHA WALTON RN - 10/20/2014 4:29 CDT Source: [facility] Document Id: [id number] CDT!5 Lindycellaneous - Alisha Walton R.N. - [...] ICU : S1S2 Nail Bed Color : [place] Capillary Refill : Less than 2 seconds [...] : 78 bpm Ventricular Rhythm : Regular NH Interval : 0.17 QRS Duration : 0.06 second(s) QT Interval : 0.36 second(s) NH Consistency : Consistent QRS Consistency : Consistent [...] ALISHA WALTON DEONNA - 10/19/2014 22:53 CDT Marine Coma Eye Opening Response Trent : Spontaneously Best Verbal Response Trent : Oriented Best Motor Response Marine : Obeys simple commands Marine Coma Score : 15 ALISHA WALTON DEONNA [...] Integrity : Intact Mucous Membrane Color : [place] Mucous Membrane Description : Moist Skin Color [...] WALTON RN - 10/19/2014 22:53 CDT Source: [facility] [employer]CHART Document Id: [id number] CDT!17 Miscellaneous - Alisha Walton, R.N. - [...] Information Given By : Patient Languages : Pashto Is Patient Female and 13-50 no hysterectomy [...] Screen/Safety Assmt : No Coping : Effective Jain Preference : Unknown ALISHA WALTON RN - [...] WALTON RN - 10/19/2014 22:45 CDT [facility] [employer] Document Id: [id number] CDT!38 Miscellaneous - Alisha Walton R.N. - [...] Measured Body Mass Index : 21.79 kg/m2 ANTON ALISHA Eyal RN - 10/19/2014 22:38 CDT Allergy Rule [...] Disposition : None brought in with patient ALISHA WALTON Eyal YING - 10/19/2014 22:43 CDT Source: [facility] [employer] Document Id: [id number] CDT!6 documented in this encounter Plan of [...] (ABNORMAL) Automated Differential (10/24/2014 6:09 AM CDT) [facility] [employer] Method Time Signature Absolute 1.65 (L) 1.70 - POWERCHART Neutrophils 7.00 109L Lymphocytes 1.86 0.90 - POWERCHART 2.90 X109L Monocytes 0.44 0.30 - POWERCHART 0.90 X109L Eosinophils 0.36 0.05 - POWERCHART 0.50 X109L Absolute 0.05 0.00 - [employer]CHART Basophil 0.30 X109L Specimen Anatomical Collection Method Collection Time Receive d Time (Source) Location / / Volume Laterality Blood 10/24/2014 6:09 AM 5 6:09 CDT AM CDT Jose Daniel Baldwin M.D. LAB BLOOD ADD-ON Performing Organization Address City/State/ZIP Code Phon e Number POWERCHART (ABNORMAL) CBC with Differential (10/24/2014 6:09 AM CDT) [facility] [employer] Method Time Signature Leukocytes 4.4 3.5 - 10.5 POWERCHART X109L Erythrocytes 3.39 (L) 3.90 - POWERCHART 5.03 [id number] Hemoglobin 10.1 (L) 12.0 - POWERCHART 15.5 [...] (Comprehensive Metabolic Panel) (10/24/2014 6:09 AM CDT) [facility] [employer] Method Time Signature Alanine 15 7 - [...] MLMINSA eGFR Black/ 27.7 (L) >=60.0 POWERCHART [place] MLMINSA Bilirubin, Total, S 0.2 <=1.2 MGDL [...] CBC with Differential (10/23/2014 6:28 AM CDT) [facility] [employer] Method Time Signature Leukocytes 4.5 3.5 - 10.5 POWERCHART X109L Erythrocytes 3.42 (L) 3.90 - POWERCHART 5.03 [id number] Hemoglobin 10.3 (L) 12.0 - POWERCHART 15.5 [...] (Comprehensive Metabolic Panel) (10/23/2014 6:28 AM CDT) [facility] [employer] Method Time Signature Alanine 13 7 - [...] MLMINSA eGFR Black/ 26.2 (L) >=60.0 POWERCHART [place] MLMINSA Bilirubin, Total, S 0.2 <=1.2 MGDL [...] Negative Negative POWERCHART MGDL Specific <=1.005 POWERCHART [place], POCT, U HXBLOOD Negative Negative POWERCHART pH, [...] / Volume Laterality Blood 10/22/2014 6:12 AM 201 5 6:12 CDT AM CDT Jose Daniel Baldwin M.D. LAB BLOOD ADD-ON Performing Organization Address City/State/ZIP Code Phon e Number POWERCHART (ABNORMAL) CBC with Differential (10/22/2014 6:12 AM CDT) [facility] Method Time Signature Leukocytes 5.7 3.5 - 10.5 POWERCHART X109L Erythrocytes 3.47 (L) 3.90 - POWERCHART 5.03 [id number] Hemoglobin 10.4 (L) 12.0 - POWERCHART 15.5 [...] (Comprehensive Metabolic Panel) (10/22/2014 6:12 AM CDT) [facility] Method Time Signature Alanine 12 7 - [...] MLMINSA eGFR Black/ 23.7 (L) >=60.0 POWERCHART [place] MLMINSA Bilirubin, Total, S 0.2 <=1.2 MGDL [...] subcentimeter parapelvic r ight renal cysts. Naida Michaels R.D.M.S., RDMS-BR IMG US PROCEDURES Automated Differential (10/21/2014 6:28 AM [...] CBC with Differential (10/21/2014 6:28 AM CDT) [facility] gist Method Time Signature Leukocytes 4.6 3.5 - 10.5 POWERCHART X109L Erythrocytes 3.34 (L) 3.90 - POWERCHART 5.03 [id number] Hemoglobin 10.0 (L) 12.0 - POWERCHART 15.5 [...] MLMINSA eGFR Black/ 20.7 (L) >=60.0 POWERCHART [place] MLMINSA Bilirubin, Total, S 0.2 <=1.2 MGDL [...] (ABNORMAL) Automated Differential (10/20/2014 6:29 PM CDT) [facility] Method Time Signature Absolute 2.23 1.70 - [...] M.D. LAB BLOOD ADD-ON Performing Organization Address City/[facility] Phon e Number POWERCHART (ABNORMAL) CBC with Differential (10/20/2014 6:29 PM CDT) [facility] Method Time Signature Leukocytes 4.9 3.5 - 10.5 POWERCHART X109L Erythrocytes 3.40 (L) 3.90 - POWERCHART 5.03 [id number] Hemoglobin 10.3 (L) 12.0 - POWERCHART 15.5 [...] M.D. LAB BLOOD ADD-ON Performing Organization Address City/[facility] Code Phon e Number POWERCHART (ABNORMAL) CMP (Comprehensive Metabolic Panel) (10/20/2014 6:29 PM CDT) [facility] Method Time Signature Alanine 12 7 - [...] MLMINSA eGFR Black/ 20.7 (L) >=60.0 POWERCHART [place]ic MLMINSA Bilirubin, Total, S 0.2 <=1.2 MGDL [...]
--- OUTSIDE RECORDS SUMMARY | 2022-02-21 09:01 | XMS_ITS | Encounter Summary ---
:1935 Author Organization [facility] Address [address] [place] [address] Care Team Providers Name Role Phone Unavailable Primary Care Provider Unavailable Encounter Details Date Type Department Care Team Description 03/19/2011 Hospital Encounter HX NO MAPPING Vinnie Belle Jr., M.D. [address] [place], [place] [address] (Wo rk) Social History [...] Result s for this WITHOUT IV CONTRAST FELT CEMENTER procedur e are in the results section. documented in this encounter Results MR Lumbar Spine without IV Contrast (03/19/2011 8:25 AM FELT CEMENTER) Anatomical Region Laterality Modality Lumbar Spine N/A Magnetic Resonance Specimen (Source) Anatomical Collection Method Collection Time Re ceived Time Location / / Volume Laterality 03/19/2011 8:25 AM FELT CEMENTER Addenda Addendum by Provider, Kelechi Rosario 03/19/2011 8:25 AM FELT CEMENTER RAD^^^MA MR LUMBAR SPINE WO CONTRAST 03/19/2011 08:25:00 Narrative 03/19/2011 10:21 AM FELT CEMENTER MRI Lumbar Spine without contrast ?? Clinical [...]
--- OUTSIDE RECORDS SUMMARY | 2022-02-21 09:01 | XMS_ITS | Encounter Summary ---
:1935 Author Organization [facility] Address [address] [place] [address] Care Team Providers Name Role Phone Unavailable Primary Care Provider Unavailable Encounter Details Date Type Department Care Team Description 10/19/2014 Hospital Encounter HX [facility] Lydia Casey M.D. [address] [place] [address] [phone] (Wo rk) Social History Tobacco [...] 10/19/2014 11:08 PM CDT ED Discharge Instructions [facility] [address] [place] [address] Name: KAROLINE NUÑEZ Date of : 1935 12:00 AM Visit Date: 10/19/2014 5:11 PM [facility] Number: [id number] Address: [address] [place] [phone] Primary Care Provider: BRITNEY BALDWIN MD IMPORTANT: [facility] would like to thank you for allowing [...] Democrat/Relationship Date Time Provider Signature Date Time Source: [facility] POWERCHART Document Id: [id number] Pema Cox R.N. - 10/19/2014 11:08 PM CDT ED Depart Summary [facility] Emergency Department Clinical Discharge Summary PERSON INFORMATION Name KAROLINE NUÑEZ Age 78 Years 1935 12:00 AM Sex Female Language Italian PCP BRITNEY BALDWIN MD Marital Status Visit Id Visit Reason Syncope/Near syncope; A FIB AND UTI Specialty Enc Type Emergency Med Service Emergency Medicine Referred by Track [facility] MAQN ED Discharge 10/19/2014 10:20 PM Tracking Id [id number] Checkout 10/19/2014 10:20 PM Checkin 10/19/2014 5:11 PM Acuity 2 -Emergent Dispo Type Admitted as Inpatient to this Hospital Arrival 10/19/2014 5:11 PM Reg Status LOS 000 05:09 Address: [address] [place] [phone] Comment: PROVIDER INFORMATION Provider Role Provider Contact Time JORDAN HOLBROOK MD ED Provider 10/19/14 17:21 JOSE REYES RN ED Nurse 10/19/14 17:40 PEMA COX RN ED Nurse 10/19/14 19:09 DIAGNOSIS Chronic Renal Failure Stage IV GFR 15-; Fibrillation Atrial Paroxysmal (PAF); Hypotension NOS; Urosepsis Comment: PATIENT EDUCATION INFORMATION Instructions: Follow up: Source: [facility] [employer] Document Id: [id number] documented in this encounter ED Notes Pema [...] COX RN - 10/19/2014 23:05 CDT Source: [facility] [employer] Document Id: [id number] CDT!10 Pema Cox R.N. - 10/19/2014 10:07 [...] COX RN - 10/19/2014 22:07 CDT Source: [employer] Document Id: [id number] CDT!4 Pema Cox R.N. - 10/19/2014 9:22 [...] COX RN - 10/19/2014 21:22 CDT Source: [employer] Document Id: [id number] CDT!5 Pema Cox R.N. - 10/19/2014 8:05 [...] COX RN - 10/19/2014 20:22 CDT Source: [employer] Document Id: [id number] CDT!7 Pema Cox R.N. - 10/19/2014 7:10 [...] COX RN - 10/19/2014 19:10 CDT Source: [employer] Document Id: [id number] CDT!19 Jose Reyes R.N. - 10/19/2014 6:11 PM CDT ED Nurse Reassess ED Nurse Reassess Entered On: 10/19/2014 18:11 CDT Performed On: 10/19/2014 18:11 CDT by JOSE REYES RN Pain Assessment Pain Symptoms : No JOSE REYES RN - 10/19/2014 18:11 CDT Comfort Measures Comfort Measures Grid Quiet Environment : Yes Relaxation : Yes JOSE REYES RN - 10/19/2014 18:11 CDT Source: [facility] POWERCHART Document Id: [id number] CDT!7 Jordan Holbrook M.D. - 10/19/2014 5:39 [...] General: Alert, moderate distress, anxious and ill-appearing. Louisa coma scale: Total score: Total score: 15. [...] 20 mg, 4 mL, IV Push, Once. monitoring analyst:Atrial fibrillation, Patient spontaneously converted to Sinus.. Results [...] % HI Lymph Manual 3.0 % LOW [place] Manual 4.0 % Eos Manual 2.0 % [...] management, Case review (primary care physician, medical library assistant, family), Alternate history family. Treatment response: Spontaneous [...] HOLBROOK MD On: 10/19/2014 09:47 PM Source: [facility] [employer] Document Id: [id number]} Jose Reyes R.N. - 10/19/2014 5:32 PM [...] PNED ; Probability: 0 ; Diagnosis Code: [id number] Triage Chief Complaint Description : Doctor today [...] Private vehicle Track : Medical Languages : Italian Vital Signs Assessed : Yes Treatments Prior [...] By: GAGAN TRAN; Reviewed Date: 05/22/2013 20:33 GROUP WORK PROGRAM AIDE ID Screen Drug Resistant Organism : No [...] REYES RN - 10/19/2014 17:32 CDT Source: [employer] Document Id: [id number] CDT!79 Jose Reyes R.N. - 10/19/2014 5:30 [...] REYES RN - 10/19/2014 17:46 CDT Source: [employer] Document Id: [id number] CDT!6 documented in this encounter Miscellaneous Notes Miscellaneous - Pema Cox R.N. - 10/19/2014 11:06 PM CDT Valuables/Belongings Valuables/Belongings Entered On: 10/19/2014 23:07 CDT Performed On: 10/19/2014 23:06 CDT by PEMA COX RN Valuables/Belongings Valuables/Belongings Grid Valuables with Family Clothes, Patient Valuables : Pants, Shirt, Undergarments Monetary Items : Odell PEMA COX RN - 10/19/2014 23:06 CDT Source: [facility] [employer] Document Id: [id number] CDT!6 Miscellaneous - Conversion, Historical Provider Ser - 10/19/2014 10:20 PM CDT Coding Summary-Paper Based CODING DATE: 10/22/2014 FINAL [facility] STATUS: Admitted as Inpatient to this Hospital [...] MCCLAIN Date Saved: 10/22/2014 05:02 pm Source: [employer] Document Id: [id number] Miscellaneous - Pema Cox R.N. - 10/19/2014 [...] 18:19,JORDAN HOLBROOK MD Completed Manual Differential,10/19/14 18:53,JORDAN HOBLROOK MD Completed UR % Dysmorphic RBC,10/19/14 19:11,JORDAN [...] Nursing Notes ED Primary Assessment,10/19/14 17:32,JOSE REYES JUNIOR PROJECT MANAGER Nurse Reassess,10/19/14 22:07,PEMA COX JUNIOR PROJECT MANAGER Nurse Reassess,10/19/14 21:22,PEMA COX JUNIOR PROJECT MANAGER Nurse Reassess,10/19/14 20:05,PEMA COX JUNIOR PROJECT MANAGER Nurse Reassess,10/19/14 19:10,PEMA COX JUNIOR PROJECT MANAGER Nurse Reassess,10/19/14 18:11,JOSE REYES RN Lynx Nursing Assessment : Triage and 6+ nursing assessments Lynx Disposition : Admit - ICU or transport via ALS/Air transport Disposition RTF : ICU Lynx Total Points with Diagnosis Control : 17 Lynx Visit Level : 32069 Level 5 Treatments Prior to Arrival : None PEMA COX RN - 10/19/2014 23:07 CDT [facility] Document Id: [id number] CDT!19 documented in this encounter Plan of [...] LAB BLOOD NON ADD-ON Performing Organization Address City/[facility] Code Phon e Number POWERCHART [...] - GENERAL O RDERABLES Performing Organization Address City/[facility] Code Phon e Number POWERCHART [...] - GENERAL O RDERABLES Performing Organization Address [facility] Phon e Number POWERCHART HXUR % DYSMORPHIC RBC (10/19/2014 6:50 PM CDT) athologist Signature Dysmorphic RBC <=25 <=25 POWERCHART Specimen Anatomical Collection Method Collection Time Receive d Time (Source) Location / / Volume Laterality Urine, First 10/19/2014 6:50 PM 5 6:50 Voided CDT PM CDT Jordan Holbrook M.D. LAB HISTORICAL ORDERS Performing Organization Address City/[facility]/ZIP Code Phon e Number POWERCHART (ABNORMAL) Urinalysis, Midstream, with culture if indicated (10/19/2014 6:50 PM CDT) [facility] gist Method Time Signature HXUr Color Yellow Colorless POWERCHART Clarity Clear Clear POWERCHART Glucose Negative Negative POWERCHART MGDL HXBILIRUBIN Negative Negative POWERCHART Ketones, QL(U) Negative Negative POWERCHART MGDL Specific 1.010 POWERCHART Lee, POCT, U HXBLOOD Small (A) Negative POWERCHART [...] M.D. LAB URINE ORDERABLES Performing Organization Address City/[facility]/ZIP [facility] Phon e Number POWERCHART DX Chest 1 [...] X109L Erythrocytes 3.97 3.90 - POWERCHART 5.03 [id number] Hemoglobin 11.9 (L) 12.0 - POWERCHART 15.5 [...] M.D. LAB BLOOD ADD-ON Performing Organization Address City/[facility]/ZIP Code Phon e Number POWERCHART Magnesium (10/19/2014 [...] MLMINSA eGFR Black/ 21.6 (L) >=60.0 POWERCHART Cook Islander MLMINSA Bilirubin, Total, S 0.4 <=1.2 MGDL [...]
--- OUTSIDE RECORDS SUMMARY | 2022-02-21 09:01 | XMS_ITS | Encounter Summary ---
:1935 Author Organization [facility] Address [address] [place] [address] Care Team Providers Name Role Phone Unavailable Primary Care Provider Unavailable Encounter Details Date Type Department Care Team Description 02/28/2013 Hospital Encounter HX [facility] Vinnie Aguilar Jr., M.D. [address] [place], [place] [phone] (Wo rk) Social History Tobacco Use Types Packs/Day Years Used Date Smoking Tobacco: Never Assessed Sex Assigned at Date Recorded Not on file documented as of this encounter Plan of Treatment Not on filedocumented as of this encounter Procedures Procedure Name Priority Date/Time Associated Diagnosis Comme nts BI BREAST SCREENING Routine 02/28/2013 2:00 PM Re sults for this BILATERAL LANDSCAPE LABORER procedure are i n the results section. documented in this encounter Results BI Breast Screening Bilateral (02/28/2013 2:00 PM LANDSCAPE LABORER) Anatomical Region Laterality Modality Breast Bilateral Mammography Specimen (Source) Anatomical Collection Method Collection Time Re ceived Time Location / / Volume Laterality 02/28/2013 2:00 PM LANDSCAPE LABORER Addenda Addendum by Provider, Kelechi Rosario o n 02/28/2013 2:00 PM LANDSCAPE LABORER RAD^^^LUIZ MA Mammo Screening w/ CADD 02/28/2013 14:00:00 Impressions 02/28/2013 2:54 PM LANDSCAPE LABORER 1. Stable examination with no mammograph ic [...] suspected palpable masses. Narrative 02/28/2013 2:54 PM LANDSCAPE LABORER Bilateral craniocaudal and oblique views of the [...]
--- OUTSIDE RECORDS SUMMARY | 2022-02-21 09:01 | XMS_ITS | Encounter Summary ---
:1935 Author Organization [facility] Address [address] [place] [address] Care Team Providers Name Role Phone Unavailable Primary Care Provider Unavailable Encounter Details Date Type Department Care Team Description 03/24/[address] [facility] Butch Schulte M.D. Social History Tobacco Use Types Packs/Day Years Used Date Smoking Tobacco: Never Assessed Sex Assigned at Date Recorded Not on file documented as of this encounter Last Filed Vital Signs Vital Sign Reading Time Taken Comments Blood Pressure 118/50 03/24/2013 7:59 PM NEEDLE POLISHER Pulse 72 03/24/2013 7:59 PM NEEDLE POLISHER Temperature - - Respiratory Rate - - Oxygen Saturation - - Inhaled Oxygen Concentration - - Weight 59 kg (130 lb 1.1 oz) 03/24/2013 7:59 PM NEEDLE POLISHER Height 170 cm (5' 6.93) 03/24/2013 7:59 PM NEEDLE POLISHER Body Mass Index 20.42 03/24/2013 7:59 PM NEEDLE POLISHER documented in this encounter Progress Notes Ye Fonseca M.D. - 03/24/2013 7:49 PM CST [id number] CHIEF COMPLAINT/REASON FOR VISIT The patient is [...] FONSECA MD On: 03/27/2013 12:39 PM Source: [facility] MHSDOLBEYNONRADSYS Document Id: [id number] LE POLISHER documented in this encounter Miscellaneous Notes Miscellaneous - Ye Fonseca M.D. - 03/24/2013 8:11 PM CST Ambulatory Patient Summary [facility] - [address] [address] Visit Information Name: KAROLINE HALEY [facility] Number: [id number] Current Date: 03/24/2013 20:11:03 [...] appointment detail needed. Your Goals/Additional instructions: Source: [facility] POWERCHART Document Id: [id number] LE POLISHER Miscellaneous - Ye Fonseca M.D. - 03/24/2013 8:11 PM CST Ambulatory Depart Summary [facility] - [address] [address] Visit Information Name: KAROLINE HALEY [facility] Number: [id number] Visit Date: 03/24/2013 20:11:02 [...] in case of emergency. Additional Information: Source: [facility] POWERCHART Document Id: [id number] LE POLISHER Miscellaneous - Rosita Tran, C.M.A. - 03/24/2013 7:59 PM CST Adult Spare Parts Clerk Intake/History Adult Spare Parts Clerk Intake/History Entered On: 03/24/2013 20:04 NEEDLE POLISHER Performed On: 03/24/2013 19:59 NEEDLE POLISHER by ROSITA TRAN Intake Chief Complaint : [...] : 20.42 kg/m2 ROSITA TRAN 03/24/2013 19:59 NEEDLE POLISHER General Info Languages : Haitian ROSITA TRAN 03/24/2013 19:59 NEEDLE POLISHER Subjective Pain Symptoms : Yes ROSITA TRAN 03/24/2013 19:59 NEEDLE POLISHER Pain Pain Assessment Grid Pain 1 Location : Toe (Comment: R great toe [ROSITA TRAN 03/24/2013 19:59 NEEDLE POLISHER] ) ROSITA TRAN 03/24/2013 19:59 NEEDLE POLISHER Dependent Habits Tobacco Use/Currently Using : No Exposure to Tobacco Smoke : Care provider denies smoking in home Smoking Status : Never smoker ROSITA TRAN 03/24/2013 19:59 NEEDLE POLISHER Source: [employer] Document Id: [id number] NEEDLE POLISHER!26 LE POLISHER documented in this encounter Plan of Treatment Not on filedocumented as of this encounter Visit Diagnoses Not on filedocumented in this encounter
--- OUTSIDE RECORDS SUMMARY | 2022-02-21 09:01 | XMS_ITS | Encounter Summary ---
:1935 Author Organization [facility] Address [address] [place] [address] Care Team Providers Name Role Phone Unavailable Primary Care Provider Unavailable Encounter Details Date Type Department Care Team Description 02/20/2011 Hospital Encounter HX NO MAPPING Vinnie Belle Jr., M.D. [address] [place], [place] [phone] (Wo rk) Social History Tobacco Use Types Packs/Day Years Used Date Smoking Tobacco: Never Assessed Sex Assigned at Date Recorded Not on file documented as of this encounter Plan of Treatment Not on filedocumented as of this encounter Procedures Procedure Name Priority Date/Time Associated Diagnosis Comme nts BI BREAST SCREENING Routine 02/20/2011 10:53 AM R esults for this BILATERAL FURNITURE LUMBER PRODUCTION WORKER procedure are i n the results section. documented in this encounter Results BI Breast Screening Bilateral (02/20/2011 10:53 AM FURNITURE LUMBER PRODUCTION WORKER) Anatomical Region Laterality Modality Breast Bilateral Mammography Specimen (Source) Anatomical Collection Method Collection Time Re ceived Time Location / / Volume Laterality 02/20/2011 10:53 AM FURNITURE LUMBER PRODUCTION WORKER Addenda Addendum by Provider, Kelechi Rosario 02/20/2011 10:53 AM FURNITURE LUMBER PRODUCTION WORKER RAD^^^LUIZ DEE MAMMO SCREENING W CADD 02/20/2011 10:53:00 Impressions 02/20/2011 11:22 AM FURNITURE LUMBER PRODUCTION WORKER 1. Benign findings only, ACR category 2. [...] ACR Code 2 Narrative 02/20/2011 11:22 AM FURNITURE LUMBER PRODUCTION WORKER Bilateral craniocaudal and oblique views of the [...]
--- OUTSIDE RECORDS SUMMARY | 2022-02-21 09:01 | XMS_ITS | Encounter Summary ---
:1935 Author Organization [facility] Address [address] [place] [address] Care Team Providers Name Role Phone Unavailable Primary Care Provider Unavailable Encounter Details Date Type Department Care Team Description 05/22/[address] [facility] MAN Guido Finley M.D. [address] [place] [address] [phone] (Wo rk) Social History Tobacco Use Types Packs/Day Years Used Date Smoking Tobacco: Never Assessed Sex Assigned at Date Recorded Not on file documented as of this encounter Last Filed Vital Signs Vital Sign Reading Time Taken Comments Blood Pressure 130/61 05/22/2013 8:30 PM TRACK OILER Pulse - - Temperature - - Respiratory Rate 16 05/22/2013 8:30 PM TRACK OILER Oxygen Saturation - - Inhaled Oxygen Concentration - - Weight - - Height 170 cm (5' 6.93) 05/22/2013 7:50 PM TRACK OILER Body Mass Index - - documented in this encounter Discharge Summaries Elsi Mantilla, VICKIE, C.N.P., M.S.N. - 05/22/2013 8:53 PM CST ED Discharge Instructions [facility] [address] [place] [address] Name: KAROLINE NUÑEZ Date of : 1935 12:00 AM Visit Date: 05/22/2013 7:41 PM [facility] Number: [id number] Address: [address] [place] [address] [phone] Primary Care Provider: DARRICK MENDES MD IMPORTANT: [facility] in [place] would like to thank you for allowing us to assistyou with your healthcare needs. The following includes patient education materials and information regarding your injury/illness. Chief Complaint: Chest pain; CHEST PAIN Follow-Up Instructions: With: Address: When: DARRICK MENDES [address] [place] [phone] Business (1) Within 5 - 7 days Comments: as needed if symptoms return to discuss further evaluation Patient Education Materials: [id number] GERD (Adult) The esophagus is a tube [...] afford the prescribed medication, you can try txyf-dyb-mmnnauv acid blockers, such as Pepcid AC, Tagamet, [...] as directed by your healthcare provider ?? [id number] [place] [address]. All rights reserved. This information is not [...] a responsible green party. SUDHA [place] ALICE , or responsible green party have received this information and my questions have been answered. I have discussed any challenges I see with this plan with the nurse or physician. Patient Signature or Responsible Green Party/Relationship Date Time Provider Signature Date Time Medication [...] document has images extracted. Please consider using [employer] for all your patient education needs. Source: [employer] Document Id: [id number] K OILER Elsi Mantilla APRN, C.N.P., M.S.N. - 05/22/2013 8:53 PM CST ED Depart Summary [facility] Emergency Department Clinical Discharge Summary PERSON INFORMATION Name KAROLINE NUÑEZ Age 77 Years 1935 12:00 AM Sex Female Language Turkish PCP DARRICK MENDES MD Marital Status N [id number] Visit Id Visit Reason Chest pain; CHEST PAIN Specialty Enc Type Emergency Med Service Emergency Medicine Referred by Track Group MAQN ED Discharge 05/22/2013 8:45 PM Tracking Id [id number] Checkout 05/22/2013 8:45 PM Checkin 05/22/2013 7:41 PM Acuity 3 -Urgent Dispo Type * Discharged to Home or Self Care Arrival 05/22/2013 7:41 PM Reg Status LOS 000 01:04 Address: [address] [place] [address] [phone] Comment: PROVIDER INFORMATION Provider Role Provider Contact Time GUIDO RAO MD ED Provider 05/22/13 20:33 DIAGNOSIS Comment: PATIENT EDUCATION INFORMATION Instructions: ESOPHAGEAL REFLUX (Adult) Follow up: With: Address: When: DARRICK MENDES [address] [place] [phone] [facility] (1) Within 5 - 7 days Comments: as needed if symptoms return to discuss further evaluation [facility] Document Id: [id number] K OILER documented in this encounter ED Notes Elsi Mantilla APRN, C.N.P., M.S.N. - 05/22/2013 8:45 PM CST ED Disposition Summary ED Disposition Summary Entered On: 05/22/2013 20:51 TRACK OILER Performed On: 05/22/2013 20:45 TRACK OILER by ELSI MANTILLA RN ED Disposition Summary Accompanied By : Daughter Mode of Discharge : Ambulatory Transportation : Private vehicle Printed Discharge Instructions Given to Patient : Yes Patient Status at Discharge from ED : Improved Comment : Discussed new medication Prilosec ELSI MANTILLA RN - 05/22/2013 20:51 TRACK OILER Source: [employer] Document Id: [id number] TRACK OILER!8 K OILER Elsi Mantilla APRN, C.N.P., M.S.N. - 05/22/2013 8:45 PM CST ED Education ED Education Entered On: 05/22/2013 20:52 TRACK OILER Performed On: 05/22/2013 20:45 TRACK OILER by ELSI MANTILLA RN Education ED Education Grid Topics : Activity limitations/expectations, Diagnostic results, Discharge instructions/Medication list, Disease process, Importance of follow-up visits, Nutrition/Diet, Pain management, When to call health care provider Individuals Taught : Patient, Daughter Barriers to Learning : None evident Teaching Method : Explanation, Printed materials Teaching Evaluation : Verbalizes understanding ELSI MANTILLA RN - 05/22/2013 20:51 TRACK OILER Source: [employer] Document Id: [id number] TRACK OILER!9 K OILER Elsi Mantilla APRN, C.N.Masha, M.S.N. - 05/22/2013 8:40 PM CST ED Treatments and Procedures ED Treatments and Procedures Entered On: 05/22/2013 20:51 TRACK OILER Performed On: 05/22/2013 20:40 TRACK OILER by ELSI MANTILLA it audit manager Monitoring Monitoring Lead Song Plugger : Discontinued ELSI MANTILLA RN - 05/22/2013 20:51 TRACK OILER Source: [facility] POWERCHART Document Id: [id number] TRACK OILER!3 K OILER Guido Rao M.D. - 05/22/2013 8:33 PM CST Chest pain Patient: KAROLINE NUÑEZ Age: 77 years Sex: Female : 1935 Author: GUIDO RAO MD Attachments: None Basic Information Time seen: Immediately upon arrival. History source: Patient, daughter. Arrival mode: Private vehicle. History limitation: None. Additional information: Chief Complaint from Nursing Triage Note : Chief Complaint Description 05/22/2013 19:50 TRACK OILER Chief Complaint Description Patient reports chest and [...] Examination Vital Signs: Vital Signs 05/22/2013 19:50 TRACK OILER Temperature Core 37.0 DegC Apical Heart Rate 78 /min Respiratory Rate 16 /min SpO2 97 % Systolic Blood Pressure 161 mmHg >HHI Diastolic Blood Pressure 70 mmHg Mean Arterial Pressure 100 mmHg BP Location Right upper , Measurements 05/22/2013 19:50 TRACK OILER Height 170 cm Height Source Stated Dosing Weight 61.00 kg NA Estimated Weight 61 kg , SpO2 05/22/2013 19:50 TRACK OILER SpO2 97 % . General: Alert and [...] Electrocardiogram:Normal sinus rhythm, No ST-T changes, normal CO & QRS intervals, EP Interp. Results review:Lab results : Lab View 05/22/2013 19:55 TRACK OILER Hgb 13.1 g/dL Hct 38.3 % WBC 7.3 x10(9)/L RBC 4.43 x10(12)/L MCV 86.5 fL RDW 14.6 % Platelet 249 x10(9)/L Neutro Absolute 4.21 10(9)/L Lymph Absolute 2.16 x10(9)/L [place] Absolute 0.70 x10(9)/L Eos Absolute <0.50 x10(9)/L [...] Time 05/22/2013 20:34:00, to home. Prescriptions: Prescription [facility]: PriLOSEC 10 mg oral delayed release [...] Discharge ED Patient (Order Processing): 05/22/2013 20:36 TRACK OILER, Once. Electronically Signed By: GUIDO RAO MD On: 05/22/2013 08:49 PM Modified by and Electronically Signed by: GUIDO RAO MD On: 05/22/2013 08:49 PM Source: [facility] POWERCHART Document Id: [id number]} K OILER Elsi Mantilla APRN, C.N.P., M.S.N. - 05/22/2013 8:30 PM CST ED Nurse Reassess ED Nurse Reassess Entered On: 05/22/2013 20:51 TRACK OILER Performed On: 05/22/2013 20:30 TRACK OILER by ELSI MANTILLA RN Pain Assessment Pain Symptoms : No ELSI MANTILLA RN - 05/22/2013 20:50 TRACK OILER Resp Reassess Respiratory Patient Stated Symptoms : None Distress : None Airway : Patent Respiratory Pattern : Regular Respirations : Unlabored Cough : None ELSI MANTILLA RN - 05/22/2013 20:50 TRACK OILER CV Reassess CV Patient Stated Symptoms : None Heart Rhythm : Regular Monitoring Lead : II, V1/MCL1 Cardiac Rhythm : Sinus rhythm, PAC Ectopy Frequency : Rare (1-3/min) ELSI MANTILLA RN - 05/22/2013 20:50 TRACK OILER Neuro Reassess Last Well Time Known : Not applicable Orientation : Oriented x 3 Characteristics of Speech : Clear Level of Consciousness : Alert Neuro Patient Stated Symptoms : None Gait : Steady ELSI MANTILLA RN - 05/22/2013 20:50 TRACK OILER Marine Coma Eye Opening Response Marine : Spontaneously Best Verbal Response [place] : Oriented Best Motor Response Marine : Obeys simple commands Marine Coma Score : 15 ELSI MANTILLA RN - 05/22/2013 20:50 TRACK OILER GI Reassess GI Patient Stated Symptoms : Belching ELSI MANTILLA RN - 05/22/2013 20:50 TRACK OILER /OB Reassess Patient Stated Symptoms : None ELSI MANTILLA RN - 05/22/2013 20:50 TRACK OILER [facility] Document Id: [id number] TRACK OILER!32 K OILER Elsi Mantilla APRN, C.N.P., M.S.N. - 05/22/2013 7:50 PM CST ED Primary Assessment Document Has Been Updated ED Primary Assessment Entered On: 05/22/2013 19:59 TRACK OILER Performed On: 05/22/2013 19:50 TRACK OILER by ELSI MANTILLA RN Reason For Visit (As Of: 05/22/2013 19:59:11 TRACK OILER) Diagnoses(Active) Chest pain Date: 05/22/2013 ; Diagnosis Type: Reason For Visit ; Confirmation: Complaint of ; Clinical Dx: Chest pain ; Classification: Medical ; Clinical Service: Emergency medicine ; Code: PNED ; Probability: 0 ; Diagnosis Code: [id number] Triage Chief Complaint Description : Patient reports chest and back pain starting at about 1715 this evening following supper. Now the pain is gone. Frequent belching. Information Given By : Patient Accompanied By : Daughter Mode of Arrival ED : Private vehicle Track : Medical Languages : Turkish Vital Signs Assessed : Yes GCS Assessed : Yes Treatments Prior to Arrival : None ELSI MANTILLA RN - 05/22/2013 19:50 TRACK OILER Vital Signs Temperature Core : 37.0 DegC(Converted [...] lb ELSI MANTILLA RN - 05/22/2013 19:50 TRACK OILER [place] Coma Eye Opening Response [place] : Spontaneously Best Verbal Response Marine : Oriented Best Motor Response Marine : Obeys simple commands Marine Coma Score : 15 ELSI MANTILLA RN - 05/22/2013 19:50 TRACK OILER Pain Assessment Pain Symptoms : Yes ELSI MANTILLA RN - 05/22/2013 19:50 TRACK OILER Pain Pain Assessment Grid Pain 1 Pain 2 Location : Chest (Comment: Lower, strtching across chest below breasts [ELSI MANTILLA RN - 05/22/2013 19:50 TRACK OILER] ) Upper back (Comment: Central [ELSI MANTILLA RN - 05/22/2013 19:50 TRACK OILER] ) Intensity : 0 0 Comments (Comment: 11/20 initially and now ceased [ESLI MANTILLA RN - 05/22/2013 19:50 TRACK OILER] ) (Comment: Was a 10/20 initially and now ceased [ELSI MANTILLA RN - 05/22/2013 19:50 TRACK OILER] ) ELSI MANTILLA RN - 05/22/2013 19:50 TRACK OILER ELSI MANTILLA RN - 05/22/2013 19:50 TRACK OILER JOANA JOANA Level 1 : No JOANA Level 2 : Yes ELSI MANTILLA RN - 05/22/2013 19:50 TRACK OILER DCP GENERIC CODE Tracking Acuity : 3 -Urgent Tracking Group : MAQN ED ELSI MANTILLA RN - 05/22/2013 19:50 TRACK OILER Allergy (As Of: 05/22/2013 19:59:12 TRACK OILER) Allergies (Active) zinc acetate containing compounds Estimated Onset Date: Unspecified ; Reactions: rash ; Created By: GAGAN TRAN; Reaction Status: Active ; Category: Drug ; Substance: zinc acetate containing compounds ; Type: Allergy ; Updated By: GAGAN TRAN; Reviewed Date: 05/22/2013 19:50 TRACK OILER ID Screen Drug Resistant Organism : No ELSI MANTILLA Hoang RN - 05/22/2013 19:50 TRACK OILER TB Symptoms Grid Bloody Sputum : No Fatigue : No Fever : No Loss of Appetite : No Night Sweats : No Persistent Cough Greater Than 3 Weeks : No Weight Loss : No ANNALEEELSI RN - 05/22/2013 19:50 TRACK OILER Respiratory Airway : Patent Respirations : Unlabored Respiratory Pattern : Regular Oxygen Therapy : Room air Respiratory Detailed Assessment : Yes ANNALEELESI RN - 05/22/2013 19:50 TRACK OILER Resp Detailed Respiratory Patient Stated Symptoms : None Distress : None Cough : None ANNALEEELSI RN - 05/22/2013 19:50 TRACK OILER Cardiovascular Heart Rhythm : Regular Skin Color : [place] Skin Description : Normal Skin Temperature : Warm Cardiovascular Detailed Assessment : Yes Monitoring Lead : II, V1/MCL1 Monitoring Lead Song Plugger : Initiated ANNALEE ELSI M RN - 05/22/2013 19:50 TRACK OILER CV Detailed CV Patient Stated Symptoms : Chest pain Nail Bed Color : [place] Capillary Refill : Less than 2 seconds Cardiac Rhythm : Sinus rhythm Ectopy Frequency : None ANNALEE ELSI Hoang YING - 05/22/2013 19:50 TRACK OILER Neurological Last Well Time Known : Not applicable Level of Consciousness : Alert Orientation : Oriented x 3 Characteristics of Speech : Clear Neuro Patient Stated Symptoms : None Gait : Steady ANNALEE ELSI M RN - 05/22/2013 19:50 TRACK OILER ED Psychosocial Affect/Behavior : Calm, Cooperative, Appropriate Domestic Abuse Concerns : None ELSI MANTILLA RN - 05/22/2013 19:50 TRACK OILER Gastrointestinal Nutrition ED : Adequate GI Detailed Assessment : Yes ANNALEEELSI RN - 05/22/2013 19:50 TRACK OILER GI Detailed GI Patient Stated Symptoms : Belching GI Note : Patient had nausea and vomiting with pain initially. Vomiting x4, dark brown. Patient has been belching frequently and feels gassy. Stated she ate peanuts today and that can make her gassy. ELSI MANTILLA RN - 05/22/2013 19:50 TRACK OILER /OB Assessment Patient Stated Symptoms : None ELSI MANTILLA RN - 05/22/2013 19:50 TRACK OILER Musculoskeletal Fall Prevention Education Provided : ELSI WILKERSON RN - 05/22/2013 19:50 TRACK OILER Social Habits Tobacco Use/Currently Using : No Exposure to Tobacco Smoke : Care provider denies smoking in home Smoking Status : Former smoker ELSI MANTILLA RN - 05/22/2013 19:50 TRACK OILER Source: [facility] [employer] Document Id: [id number] TRACK OILER!105 K OILER documented in this encounter Miscellaneous Notes Miscellaneous - Elsi Mantilla APRN, C.N.Masha, M.S.N. - 05/22/2013 8:45 PM TRACK OILER Valuables/Belongings Valuables/Belongings Entered On: 05/22/2013 20:52 TRACK OILER Performed On: 05/22/2013 20:45 TRACK OILER by ELSI MANTILLA RN Valuables/Belongings Belongings Sent Home With : All belongings sent with patient Home Medication Disposition : None brought in with patient ELSI MANTILLA RN - 05/22/2013 20:52 TRACK OILER Source: [facility] [employer] Document Id: [id number] TRACK OILER!4 K OILER Miscellaneous - Elsi Mantilla APRN, C.N.PXenia, M.S.N. - 05/22/2013 7:41 PM TRACK OILER Facility Charge Ticket 2.0 11.0 DX Facility Charge Ticket 2.0 11.0 DX Entered On: 05/22/2013 20:52 TRACK OILER Performed On: 05/22/2013 19:41 TRACK OILER by ELSI MANTILLA RN Facility Charge Ticket [...] Nursing Notes ED Primary Assessment,05/22/13 19:50,ELSI MANTILLA BOTTLED BEVERAGE INSPECTOR Nurse Reassess,05/22/13 20:30,ELSI MANTILLA RN Lynx Nursing Assessment : Triage and 1-2 nursing assessments Lynx Disposition : Discharge Disposition RTF : discharge Lynx Total Points with Diagnosis Control : 13 Lynx Visit Level : 99401 Level 5 Treatments Prior to Arrival : None ELSI MANTILLA RN - 05/22/2013 20:52 TRACK OILER Source: [facility] POWERCHART Document Id: [id number] TRACK OILER!19 K OILER documented in this encounter Plan of Treatment Not on filedocumented as of this encounter Procedures Procedure Name Priority Date/Time Associated Diagnosis Comme nts DX CHEST 1 VIEW Routine 05/22/2013 8:24 PM Result s for this TRACK OILER procedure are i n the results section. AUTOMATED Routine 05/22/2013 7:55 PM Results f or this DIFFERENTIAL, B TRACK OILER procedure ar e in the results section. CBC WITH Routine 05/22/2013 7:55 PM Results f or this DIFFERENTIAL, B TRACK OILER procedure ar e in the results section. TROPONIN T, 5TH Routine 05/22/2013 7:55 PM Result s for this GEN, P TRACK OILER procedure are i n the results section. BASIC METABOLIC Routine 05/22/2013 7:55 PM Result s for this PANEL, S/P TRACK OILER procedure are i n the results section. ECG Routine 05/22/2013 7:50 PM Results f or this TRACK OILER procedure are i n the results section. documented in this encounter Results DX Chest 1 View (05/22/2013 8:24 PM TRACK OILER) Anatomical Region Laterality Modality Chest N/A Radiographic Imaging Specimen (Source) Anatomical Collection Method Collection Time Re ceived Time Location / / Volume Laterality 05/22/2013 8:24 PM TRACK OILER Addenda Addendum by Provider, Kelechi Rosario o desiree 05/22/2013 8:24 PM TRACK OILER RAD^^^MA XR Chest 1 view portable 05/22/2013 20:24:00 Impressions 05/23/2013 7:20 AM TRACK OILER No active cardiopulmonary disease. 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 Narrative 05/23/2013 7:20 AM TRACK OILER EXAM: XR Chest 1 view portable INDICATION: [...] GING PROCEDURES Automated Differential (05/22/2013 7:55 PM TRACK OILER) athologist Signature Absolute 4.21 1.70 - POWERCHART Neutrophils 7.00 109L Lymphocytes 2.16 0.90 - POWERCHART 2.90 X109L Monocytes 0.70 0.30 - POWERCHART 0.90 X109L Eosinophils <0.50 0.05 - POWERCHART 0.50 X109L Absolute <0.50 0.00 - POWERCHART Basophil 0.30 X109L Specimen Anatomical Collection Method Collection Time Receive d Time (Source) Location / / Volume Laterality Blood 05/22/2013 7:55 PM 4 7:55 TRACK OILER PM TRACK OILER Guido Rao M.D. LAB BLOOD ADD-ON Performing Organization Address City/State/ZIP Code Phon e Number POWERCHART CBC with Differential (05/22/2013 7:55 PM TRACK OILER) athologist Signature Leukocytes 7.3 3.5 - 10.5 POWERCHART X109L Erythrocytes 4.43 3.90 - POWERCHART 5.03 [id number] Hemoglobin 13.1 12.0 - POWERCHART 15.5 GDL Hematocrit 38.3 34.9 - POWERCHART 44.5 MCV 86.5 81.6 - POWERCHART 98.3 FL HX RDW 14.6 11.9 - POWERCHART 15.5 Platelet Count 249 150 - 450 POWERCHART X109L HXDifferential? Auto POWERCHART Specimen (Source) Anatomical Collection Method Collection Time Re ceived Time Location / / Volume Laterality Blood 05/22/2013 7:55 PM TRACK OILER Guido Rao M.D. LAB BLOOD ADD-ON Performing Organization Address City/State/ZIP Code Phon e Number POWERCHART Troponin T (05/22/2013 7:55 PM TRACK OILER) athologist Signature Troponin T, S <0.010 <=0.010 POWERCHART NGML Comment: Values > or = 0.01 ng/mL have b een shown to have prognostic value. Specimen (Source) Anatomical Collection Method Collection Time Re ceived Time Location / / Volume Laterality Blood 05/22/2013 7:55 PM TRACK OILER Guido Rao M.D. LAB BLOOD ADD-ON Performing Organization Address City/State/ZIP Code Phon e Number POWERCHART (ABNORMAL) BMP (Basic Metabolic Panel) (05/22/2013 7:55 PM TRACK OILER) Analysis Performed At Patho logist Time Signature [...] / Volume Laterality Blood 05/22/2013 7:55 PM TRACK OILER Guido Rao M.D. LAB BLOOD ADD-ON Performing Organization Address City/State/ZIP Code Phon e Number POWERCHART ECG 12 Lead (05/22/2013 7:50 PM TRACK OILER) Specimen (Source) Anatomical Collection Method Collection Time Re ceived Time Location / / Volume Laterality 05/22/2013 7:50 PM TRACK OILER [facility] - 05/22/2013 7:50 PM TRACK OILER Test Reason : EKG Blood Pressure : [...] Phon e Number [facility] [address] [place] [phone] documented in this encounter Visit Diagnoses Not on filedocumented in this encounter
--- OUTSIDE RECORDS SUMMARY | 2022-02-21 09:01 | XMS_ITS | Encounter Summary ---
:1935 Author Organization [facility] Address [address] [place] [address] Care Team Providers Name Role Phone Unavailable Primary Care Provider Unavailable Encounter Details Date Type Department Care Team Description 03/01/2014 Hospital Encounter HX [facility] Vinnie Belle Jr., M.D. [address] [place], [place] [address] (Wo rk) Social History Tobacco Use Types Packs/Day Years Used Date Smoking Tobacco: Never Assessed Sex Assigned at Date Recorded Not on file documented as of this encounter Plan of Treatment Not on filedocumented as of this encounter Procedures Procedure Name Priority Date/Time Associated Diagnosis Comme nts BI BREAST SCREENING Routine 03/01/2014 1:22 PM Re sults for this BILATERAL LABORER [facility] procedure are i n the results section. documented in this encounter Results BI Breast Screening Bilateral (03/01/2014 1:22 PM LABORER [facility]) Anatomical Region Laterality Modality Breast Bilateral Mammography Specimen (Source) Anatomical Collection Method Collection Time Re ceived Time Location / / Volume Laterality 03/01/2014 1:22 PM LABORER [facility] Addenda Addendum by Provider, Kelechi Rosario 03/01/2014 1:22 PM LAB[facility] RAD^^^MA MA Mammo Screening w/ CADD 03/01/2014 13:22:23 Impressions 03/01/2014 2:00 PM LABORER [facility] BI-RADS 1. ??NEGATIVE. RECOMMENDATION: Routine yearly mammogram . BREAST MAMMOGRAPHY - GENERAL OBSERVATION S: ??The false negative rate for mammography is 15-20%. ??It cannot b e used, therefore, to replace the regular physical examination. ??A no rmal or noncontributory mammogram report also should not deter t he aggressive further workup of any suspected palpable masses. Narrative 03/01/2014 2:00 PM LABOR[facility] Bilateral digital screening Mammography with computer-aided detection, [...]
--- OUTSIDE RECORDS SUMMARY | 2022-02-21 09:01 | XMS_ITS | Encounter Summary ---
:1935 Author Organization [facility] Address [address] [place] [address] Care Team Providers Name Role Phone Unavailable Primary Care Provider Unavailable Encounter Details Date Type Department Care Team Description 02/23/2012 Hospital Encounter HX NO MAPPING Eric Gaffney M.D. [address] [place], [place] [phone] (Wo rk) Social History Tobacco Use Types Packs/Day Years Used Date Smoking Tobacco: Never Assessed Sex Assigned at Date Recorded Not on file documented as of this encounter Plan of Treatment Not on filedocumented as of this encounter Procedures Procedure Name Priority Date/Time Associated Diagnosis Comme nts BI BREAST SCREENING Routine 02/23/2012 8:08 AM Re sults for this BILATERAL BOWL ATTENDANT procedure are i n the results section. documented in this encounter Results BI Breast Screening Bilateral (02/23/2012 8:08 AM BOWL ATTENDANT) Anatomical Region Laterality Modality Breast Bilateral Mammography Specimen (Source) Anatomical Collection Method Collection Time Re ceived Time Location / / Volume Laterality 02/23/2012 8:08 AM BOWL ATTENDANT Addenda Addendum by Provider, Kelechi Rosario 02/23/2012 8:08 AM BOWL ATTENDANT RAD^^^LUIZ MA MAMMO SCREENING W CADD 02/23/2012 08:08:00 Impressions 02/23/2012 8:23 AM BOWL ATTENDANT BI-RADS 1. ??NEGATIVE. RECOMMENDATION: Routine yearly mammogram . BREAST MAMMOGRAPHY - GENERAL OBSERVATION S: ??The false negative rate for mammography is 15-20%. ??It cannot b e used, therefore, to replace the regular physical examination. ??A no rmal or noncontributory mammogram report also should not deter t he aggressive further workup of any suspected palpable masses. Narrative 02/23/2012 8:23 AM BOWL ATTENDANT Bilateral digital screening Mammography with computer-aided detection, [...]
--- OUTSIDE RECORDS SUMMARY | 2022-02-21 09:01 | XMS_ITS | Encounter Summary ---
:[address] [facility] Address [address] [place] [address] Care Team Providers Name Role Phone Unavailable Primary Care Provider Unavailable Encounter Details Date Type Department Care Team Description 12/09/2011 Hospital Encounter HX NO MAPPING Eric Gaffney M.D. [address] [place], [place] [phone] (Wo rk) Social History [...]
== END 2022-02-21 08:58 | disposition home or self-care (01) ==
LOC: LONREF 08:57
PROVIDERS: PCP Family Medicine; Visit Provider Registered Nurse
DX: R39.15 Urgency of urination (principal)
CPT/HCPCS: 87086

== ENCOUNTER 2022-03-19 15:30 | Outpatient (RCR) | payer MEDICARE, BC, SELFPAY | END 2022-05-09 14:57 | disposition home or self-care (01) | PROVIDERS: PCP Family Medicine; Visit Provider Physician Assistant Surgical | DX: M41.85 Other forms of scoliosis, thoracolumbar region (principal); Z51.89 Encounter for other specified aftercare | CPT/HCPCS: 97110; 97161 ==

== ENCOUNTER 2022-03-21 10:18 | Outpatient (CLI) | payer MEDICARE, BC, SELFPAY ==
--- OUTSIDE RECORDS SUMMARY | 2022-03-21 10:21 | XMS_ITS | Encounter Summary ---
:1935 Author Organization [facility] Address [address] [place] [address] Care Team Providers Name Role Phone Unavailable Primary Care Provider Unavailable Encounter Details Date Type Department Care Team Description 03/15/2021 Admin Visit Urgent Care, [facility], in [place], [place] [address] [place] [phone] Social History Tobacco Use Types Packs/Day [...] COVID19 Pending 03/15/2021 03/15/2021 03/16/2021 12:41 AM COATER SMOKING PIPE documented as of this encounter
--- OUTSIDE RECORDS SUMMARY | 2022-03-21 10:21 | XMS_ITS | Encounter Summary ---
:1935 Author Organization [facility] Address [address] [place] [address] Care Team Providers Name Role Phone Unavailable Primary Care Provider Unavailable Reason for Visit Reason Onset Date Comments Testing For Upper Respiratory Virus Symptoms 03/15/2021 Encounter Details Date Type Department Care Team Description 03/15/2021 External Outreach Department of Noreen Carrillo, Contact With And Medicine in [facility], C.N.P., (Suspected) Exposure [place], [place] D.N.P. To COVID-19 (Primary [address] Dx) [place] [phone] Social History Tobacco Use Types Packs/Day Years [...] Influenza, RSV, and/or Group A Strep testing. D PROFESSIONAL documented in this encounter Plan of Treatment Not on filedocumented as of this encounter Procedures Procedure Name Priority Date/Time Associated Diagnosis Comme nts SARS CORONAVIRUS-2 Routine 03/15/2021 12:55 PM Contact With An d Results for this RNA, V FIELD PROFESSIONAL (Suspected) Exposure procedu re are in To COVID-19 the results section. documented in this encounter Results SARS Coronavirus-2 RNA, V Symptomatic (03/15/2021 12:55 PM FIELD PROFESSIONAL) [facility] Method Time Signature SARS-CoV-2 Swab, 03/16/2021 MKTO Specimen Nasopharynx 12:40 AM Source FIELD PROFESSIONAL SARS CoV-2 Undetected Undetected 03/16/2021 MKTO RNA, TMA 12:40 AM FIELD PROFESSIONAL Comment: SARS-CoV-2 RNA absent. This result does not rule out COVID-19 in the patient, as the sensitivity of the test depends o n the timing of the specimen collection and the quality of the specim en. Result should be correlated with patient's history and clinical presentat ion. ----ADDITIONAL INFORMATION---- This molecular amplification test was pe rformed using the Aptima SARS-CoV-2 assay ([employer] on the [employer] tem under emergency use authorization (EUA) by the U.S. Food and Drug Administ ration. Fact sheets for this EUA assay can be fo und at the following links: For Healthcare Providers: https://www.fd a.gov/media/378070/download For Patients: https://www.fda.gov/media/ 509277/download Specimen Anatomical Collection Method Collection Time Receive d Time (Source) Location / / Volume Laterality Varies 03/15/2021 12:55 03/15/2021 6:01 (Nasopharynx) PM FIELD PROFESSIONAL PM FIELD PROFESSIONAL Noreen Kimbrough APRN C.N.P., D.N.P. LAB MICROBIOLOGY - GENERAL ORDERABLES Performing Organization Address City/State/ZIP Code Phon e Number [facility]- [address] [place] [id number] [place] [address] [place] [address] [address] documented in this encounter Visit Diagnoses Diagnosis Contact With And (Suspected) Exposure To COVID-19 - Primary documented in this encounter Additional Health Concerns Infection Onset Date Last Indicated Resolved Time COVID19 Pending 03/15/2021 03/15/2021 03/16/2021 12:41 AM FIELD PROFESSIONAL documented as of this encounter
--- OUTSIDE RECORDS SUMMARY | 2022-03-21 10:21 | XMS_ITS | Encounter Summary ---
:1935 Author Organization [facility] Address [address] [place] [address] Care Team Providers Name Role Phone Unavailable Primary Care Provider Unavailable Reason for Visit Reason Comments HEARING LOSS Hearing Aid Encounter Details Date Type Department Care Team Description 02/13/2021 Office Visit [facility] Jeanne, Bilateral sensorineural [id number] [employer] STARR Dill hearing loss (Primary [place], [place] [address] [facility]) [phone] [facility] [phone] [place] [address] Social History Tobacco Use Types Packs/Day Years Used Date Smoking Tobacco: Never Assessed Sex Assigned at Date Recorded Not on file documented as of this encounter Progress Notes Leatha Angel AU.D. - 02/13/2021 4:30 PM CDT Hearing Evaluation and Hearing Aid Review Subjective: Karoline Nuñez, 85 y.o., was seen for an audiological evaluation upon order from Surjit Chan MD at [facility]. She was accompanied to the appointment by her daughters. She hasnot been seen previously for a hearing evaluation at [facility], but [facility] [place] Audiogram indicates sensorineural hearing loss, although poor [...] and she has had to have the producer director wires replaced multiple times because they were [...] of the conversation often. Previous audiogram at [facility] indicates word recognition completed with only [...] copied from outside audiogram on 01/16/2021. Speech senior receptionist thresholds were obtained at 70 dBHL [...] 8000 Hz. These results were uploaded into [employer]. Assessment: Communicatively significant moderate to severe sensorineural hearing loss, bilaterally. Speech senior receptionist thresholds were in good agreement with [...] what is causing her to have broken producer director wires on occasion. Patient practiced, but she [...]
--- OUTSIDE RECORDS SUMMARY | 2022-03-21 10:21 | XMS_ITS | Encounter Summary ---
:1935 Author Organization [facility] Address [address] [place] [address] Care Team Providers Name Role Phone Unavailable Primary Care Provider Unavailable Encounter Details Date Type Department Care Team Description 03/14/2021 Clinical Communication Urgent Care, [facility], in [place], [place] [address] [place] [address] Social History Tobacco Use Types Packs/Day Years Used Date Smoking Tobacco: Former Cigarettes 0 Quit : 07/23/1990 Smokeless Tobacco: Never Alcohol Use Standard Drinks/Week Comments Not Currently 0 (1 standard drink = 0.6 oz pure alcoho l) Quit 30-35 years ago Sex Assigned at Date Recorded Not on file documented as of this encounter Miscellaneous Notes Telephone Encounter - Broderick Clifton Cyndi - 03/14/2021 12:18 PM CST What is [...] LABORATORY CONFIRMED case ofCOVID-19?: Yes exposure noted. [place] patient, instruct to quarantine, testing indicated (End Screening) Plan: Endpoint recommendation: Testing indicated, advised to be swabbed for COVID-19 Only , sent to [facility]: An appointment is needed for testing. Call [phone] during the hours of Mon-Fri 8 am [...] sending patient for testing in [facility], route encounter to the correct testing pool. R HOME ELECTRICAL FOREMAN documented in this encounter Plan of Treatment Not on filedocumented as of this encounter Visit Diagnoses Not on filedocumented in this encounter Additional Health Concerns Infection Onset Date Last Indicated Resolved Time COVID19 Pending 03/15/2021 03/15/2021 03/16/2021 12:41 AM MOTOR HOME ELECTRICAL FOREMAN documented as of this encounter
--- OUTSIDE RECORDS SUMMARY | 2022-03-21 10:21 | XMS_ITS | Clinical Summary ---
:1935 Author Organization [facility] Address [address], [place] [address] Care Team Providers Name Role Phone Unavailable [...] for each transition of care or referral. Tred Social History Tobacco Use Types Packs/Day Years [...] Phone Addre ss Type Group MEDICARE MEDICARE [id number] 2017-Presjai [phone] ATTN CLA IMS Medicare t 90 [address] [facility] [place] [address] BCBS BCBS HOH [id number] 2017-Presjai [phone] [address] [address] Medicare BLUE t [address] [phone] (Home) [place] [address]
--- OUTSIDE RECORDS SUMMARY | 2022-03-21 10:21 | XMS_ITS | Encounter Summary ---
:1935 Author Organization [facility] Address [address] [place] [address] Care Team Providers Name Role Phone Unavailable Primary Care Provider Unavailable Reason for Visit Outpatient (Routine) - Modified Order Specialty Diagnoses / Procedures Referred By Contact Refer red To Contact Diagnoses Screening Mammogram Average Risk Patient Lizbeth Moe APRN, [facility] Region Procedures BI Breast Screening Bilateral with Tomosynthesis BI Breast Screening Bilateral C.N.P., M.S.N. [address] [place] [address] Referral ID Status Reason Start Date Expiration Date Visits V isits Requested Authorized [id number] Modified 02/09/2020 02/08/2021 1 1 Order Encounter Details Date Type Department Care Team Description 03/22/2020 Hospital Encounter Department of Lizbeth Moe ng Mammogram Radiology in Jelani Terrell APRN, [facility] Ris k Patient [place], [place] C.N.P., M.S.N. [address] [place] [phone] Social History Tobacco Use Types Packs/Day [...] geriatric Take 1 tablet by 0 01/30/2015 qjewzhrr-pkdo-dmwu tablet mouth daily. raloxifene (EVISTA) 60 mg [...] lts for BILATERAL WITH (most inpatients AM CARDIOLOGY CLINICAL CONSULTANT Mammogram Average this procedure TOMOSYNTHESIS and all Risk Patient are in the outpatients) results section. documented in this encounter Results BI Breast Screening Bilateral with Tomosynthesis (03/22/2020 9:45 AM CARDIOLOGY CLINICAL CONSULTANT) Anatomical Region Laterality Modality Breast, Breast Imaging RST LOS, Breast Imaging ARZ LOS, [place] st Bilateral Mammography Imaging FLA LOS Specimen (Source) Anatomical Collection Method Collection Time Re ceived Time Location / / Volume Laterality 03/22/2020 1:14 PM CARDIOLOGY CLINICAL CONSULTANT Impressions 03/22/2020 1:17 PM CARDIOLOGY CLINICAL CONSULTANT Benign. RECOMMENDATION: ??Annual Screening Mammo gram ASSESSMENT: ??BI-RADS: 2: Benign. Narrative 03/22/2020 1:17 PM CARDIOLOGY CLINICAL CONSULTANT EXAM: ??BI BREAST SCREENING BILATERAL WITH TOMOSYNTHESIS Current study was evaluated with a GroupCard Aided Detection (CAD) system. INDICATION: ??Screening mammogram. [...] Screening Mammogr am ASSESSMENT: BI-RADS: 2: Benign. Lizbeth Moe APRN C.N.Sonny., M.S.N. IMG BI PROCEDURES documented in this encounter Visit Diagnoses Diagnosis Screening Mammogram Average Risk Patient documented in this encounter
--- OUTSIDE RECORDS SUMMARY | 2022-03-21 10:21 | XMS_ITS | Encounter Summary ---
:1935 Author Organization [facility] Address [address] [place] [address] Care Team Providers Name Role Phone Unavailable Primary Care Provider Unavailable Encounter Details Date Type Department Care Team Description 08/21/2016 Hospital Encounter HX [facility] Berto Lundy M.D. [address] [place] [address] (Wo rk) Social History Tobacco Use Types [...] geriatric Take 1 tablet by 0 01/30/2015 uvttdhxe-socs-aqkr tablet mouth daily. simvastatin (ZOCOR) 10 mg [...] Jr., M.D. - 08/21/2016 10:15 AM CDT [id number] CHIEF COMPLAINT/REASON FOR VISIT Surgery. HISTORY OF PRESENT ILLNESS This is a 80-year-old female, admitted at this time for a right cataract procedure with Dr. Moncada at [facility]. See Dr. Moncada's consultative note. It should be noted that the patient had a left cataract procedure at [facility] on 07/24/2016. Patient subsequently developed a cystitis [...] disease and beingfollowed by Dr. Dent in [place]. She has a left renal stone. She [...] side. Britney Baldwin M.D./pos Electronically Signed By: BRINTEY BALDWIN MD On: 08/22/2016 10:11 PM Source: [facility] MHSDOLBEYNONRADSYS Document Id: [id number] documented in this encounter Procedure Notes Nan [...] : Yes Jewelry/Piercing Removed : Yes Makeup/Nail Turkish Removed : Yes Oral Hygiene : Yes Preop Scrub AM of Surgery : Yes Preop Scrub Night Prior to Surgery : Yes Prosthesis Removed : NA Tampon Removed : NA Verified - No hair products used : Yes Voided configuration consultant to procedure : Yes Wearing Patient Gown [...] : Living will, Health care power of travertine installer Advance Directive Location : Scanned into EMR [...] TRAN; Reviewed Date: 08/21/2016 9:25 CDT Source: [facility] POWERCHART Document Id: [id number] CDT!75 documented in this encounter Nursing Notes [...] Information Given By : Patient Languages : American Have you received chemotherapy in last 48 [...] months : No Tobacco Last Use/Year : 1969 NAN DIAZ RN - 08/21/2016 9:24 CDT Caffeine Use Grid Caffeine Use : Current Type : Coffee, Soft drinks, Tea Frequency : Daily Amount : 1 cup NAN DIAZ RN - 08/21/2016 9:24 CDT Psychosocial Adult Domestic Abuse Concerns : None Concerns About Family Members at Home : No Emotional Support Available : Yes Behavioral Health Screen/Safety Assmt : No Sabianist Preference : Hoahaoism: Samaritan NAN DIAZ RN - 08/21/2016 9:24 CDT Advance Directive Advanced Directives : Yes Advance Directive Type : Living will, Health care power of travertine installer Advance Directive Location : Scanned into EMR [...] DIAZ RN - 08/21/2016 9:24 CDT Source: [facility] POWERCHART Document Id: [id number] CDT!10 documented in this encounter OR Notes Op Note - Conversion, Historical Provider Ser - 08/21/2016 1:29 PM CDT Picis CASE RECORD UPLOAD DATA PATIENT: KAROLINE NUÑEZ SURGERY DATE: 08/21/2016 UNIT #: [id number] ROOM: [address] NBR: [id number] STATUS: In Process DATE: 1935 SIGN. STATUS: [...] Since: Latex Allergy: NO SECTION NAME : 1/Intra Case Record -- PAGE : OR02B Anesthesia Staff Anesthesiologist: TELEMETRY NURSE: Jaskaran Brannon TELEMETRY NURSE SECTION NAME : 1/Intra Case Record -- PAGE : OR02C Anesthesia Primary Anes: 3MHONEY Martineztl Anes: 4LOC Local Comments: Regional Anesthetic Only: SECTION NAME : 1/Intra Case Record -- PAGE : OR03A Times In OR Time: 1105 Surgery Start Time: 1111 Surgery End Time: 1115 Out of OR Time: 1117 Anesthesia Start Time: Anesthesia End Time: Cecum Time: SECTION NAME : 1/Intra Case Record -- PAGE : OR03B Classifications [...] Surgery Start Time: 1111 OR Nurse Initials: [facility] Notes: BRIEFING DONE ALL PARTICIPATED SECTION NAME : 1/IntraOp Case Record -- PAGE : OR06A Case Personnel Philosophy Lecturer: Marlen Reyna RN, Lisa RN Relief Philosophy Lecturer: SECTION NAME : 1/IntraOp Case Record -- PAGE : OR06B Case Personnel OR Tech: Elizbaeth Tapia LPN Relief OR Tech: SECTION NAME : 1/IntraOp Case Record -- PAGE : PERRY Case Machine Milker: MAUREEN Maya Relief Assist: SECTION NAME : 1/IntraOp Case Record -- PAGE : RIVKA Case Personnel Other Name: LUPILLO COON SITE [...] PreOp Skin Assessment: unremarkable Positioning Devices: ANITRA pillow Comment: SECTION NAME : 1/IntraOp Case Record -- PAGE : OR07C Positioning Positioning Protection: PILLOW Pillow GEL Gel Pads Comment: under legs and head Notes: SECTION NAME : 1/IntraOp Case Record -- PAGE : LESLYEA Positioning Position for Surgery: SUP Supine Comment: Positioned By: ALCIRA Certified Registered Nurse Infrastructure Architect DEONNA Registered Nurse Comment: SECTION NAME : [...] (ml): LESS THAN 1ML SECTION NAME : 1/[facility] Case Record -- PAGE : OR10A Specimen Manage specimen handling and disposition: Y Specimen: N Specimen Sent To: Specimen Description: Notes: SECTION NAME : 1/Intra Case Record -- PAGE : OR10B Culture Culture: Cyndi Culture Site: Culture Type: SECTION NAME : 1/IntraOp Case Record -- PAGE : OR11A Meds [...] : 1/Intra Case Record -- PAGE : OR12A Cautery Grounding Pad Applied: N/A Cautery Pad Placement: If Other, detail: ESU Number: Cut: Coagulation: Blend: Bipolar: SECTION NAME : 1/IntraOp Case Record -- PAGE : OR12B Special Equipment Special Equipment Used: EYE Eye Microscope MARIIA Gaitan PHACO Phaco Machine Comment: provided by [employer] provided by [facility] Notes: Thermal Unit: Temperature: N/A SECTION [...] Procedure Sponge: N/A N/A SECTION NAME : 1/[facility] Case Record -- PAGE : OR16C [...] Rails Up X2 OR Pt Discharge To: [facility] Care Room: : Time: SECTION NAME : 1/Intra Case Record -- PAGE : OR17 Family Notification Provide Status Reports to Family/Support Person: N/A Notification Time: Notes: SECTION NAME : 1/Intra Case Record -- PAGE : OR18A New [...] OR19B Respiratory_Heart Rate Time: RR: HR: TALISHA WOODALL SECTION NAME : 1/IntraOp Case Record -- PAGE : OR19C Temp_O2Sat Time: Temp: O2sat: TALISHA NA SECTION NAME : 1/IntraOp Case [...] #: Serial #: Reference # Location: 1 [id number] RIGHT EYE # Addictions Therapist: Date: Wasted: 10/10/2020 Notes: Lan Lens SECTION NAME : 1/Intra Case Record -- PAGE : OR22A Tissue Log A Management Professor From Lab to OR: Tissue Description Tissue [...] Delivery Time: Sex: Delivery Assistance: Notes: Source[facility] Document Id: [id number] Op Note - Jaskaran Pederson CRNA - 08/21/2016 11:22 AM CDT ANES, Phase [...] PEDERSON CRNA On: 08/21/2016 11:23 AM Source: [employer] POWERCHART Document Id: [id number] Op Note - Jaskaran Pederson CRNA - [...] PEDERSON CRNA On: 08/21/2016 10:56 AM [facility] [employer] Document Id: [id number] documented in this encounter Miscellaneous Notes Miscellaneous - Conversion, Historical Provider Ser - 08/21/2016 12:10 PM CDT Coding Summary-Paper Based CODING DATE: 08/26/2016 FINAL [facility] STATUS: * Discharged to Home or Self Care PAYOR: Medicare APC DESCRIPTION 5491 Level 1 Intraocular Procedures ADMIT DX: REASON FOR VISIT DX: FINAL DX: PRINCIPAL: H26.9 Unspecified cataract SECONDARY: PYMT PROC APC STAT DESCRIPTION DOCTOR NAME DATE [id number] J1 CATARACT REMOVAL BERTO MONCADA MD 08/21/2016 [...] Revised Date Saved: 08/26/2016 12:18 pm Source: [facility] Organization Document Id: [id number] Miscellaneous - Michelle Tate, RXenaiNXenia - 08/21/2016 12:00 PM CDT Adult Postprocedure [...] Morning Snack : 100 % (Comment: small malay [MICHELLE TATE RN - 08/21/2016 13:07 CDT] [...] TATE RN - 08/21/2016 13:07 CDT Source: [facility] [employer] Document Id: [id number] CDT!73 Miscellaneous - Michelle Tate R.N. - [...] TATE RN - 08/21/2016 11:34 CDT Source: [employer] Document Id: [id number] CDT!41 documented in this encounter Plan of Treatment Not on filedocumented as of this encounter Visit Diagnoses Not on filedocumented in this encounter
--- OUTSIDE RECORDS SUMMARY | 2022-03-21 10:21 | XMS_ITS | Encounter Summary ---
:1935 Author Organization [facility] Address [address] [place] [address] Care Team Providers Name Role Phone Barbra Ryder M.D., Vinnie Vasquez Primary Care Provider Reason for Visit Reason Comments Earache ck ears; Left worse than Rig ht; sx's started last noct Encounter Details Date Type Department Care Team Description 02/23/2019 Office Visit Urgent Care, Hospital Vinnie Belle Jr., M.D. [address] [place] [address] Otitis Externa Acute Left (Primary Dx); [place], in [place], Ralf, Andrés, VICKIE, C.N.P., D.N.P. [address] [place] [phone] Cerumen Impacted Left [place] [address] [place] [phone] Social History Tobacco Use Types Packs/Day Years Used Date Smoking Tobacco: Former Cigarettes 0 Smokeless Tobacco: Never Sex Assigned at Date Recorded Not on file documented as of this encounter Last Filed Vital Signs Vital Sign Reading Time Taken Comments Blood Pressure 149/63 02/23/2019 10:57 AM HUMAN RESOURCES BENEFITS ASSISTANT Pulse 68 02/23/2019 10:57 AM HUMAN RESOURCES BENEFITS ASSISTANT Temperature 36.3 ??C (97.3 ??F) 02/23/2019 10:57 AM HUMAN RESOURCES BENEFITS ASSISTANT Respiratory Rate 18 02/23/2019 10:57 AM HUMAN RESOURCES BENEFITS ASSISTANT Oxygen Saturation 98% 02/23/2019 10:57 AM HUMAN RESOURCES BENEFITS ASSISTANT Inhaled Oxygen Concentration - - Weight 67.3 kg (148 lb 5.9 oz) 02/23/2019 10:57 AM HUMAN RESOURCES BENEFITS ASSISTANT Height - - Body Mass Index 23.02 11/10/2016 5:05 AM CDT documented in this encounter Patient Instructions Patient InstructionsSaAndrés burgos APRN, C.N.P., Elis.N.P. - 02/23/2019 11:00 AM CST Home care and follow up as discussed. N RESOURCES BENEFITS ASSISTANT documented in this encounter Progress Notes Andrés Arambula APRN, C.N.P., ApN.P. - 02/23/2019 11:00 AM CST SUBJECTIVE CHIEF [...] adequately hydrated. Respiratory: Effort is easy. Skin: [place], warm, with good turgor. No rash or [...] Until Thu03/02/2019, Normal Ear lavage by medical services manager completed with some returns. Patient tolerated procedure [...] Arambula APRN, C.N.P., D.N.P. 02/23/19 12:12 PM N RESOURCES BENEFITS ASSISTANT documented in this encounter Plan of Treatment Not on filedocumented as of this encounter Visit Diagnoses Diagnosis Otitis Externa Acute Left - Primary Cerumen Impacted Left documented in this encounter Administered Medications Inactive Administered Medications - up to 3 most recent administrations Medication Order MAR Action Action Date Dose Rate Site carbamide peroxide 6.5 % otic Given 02/23/2019 11:29 AM HUMAN RESOURCES BENEFITS ASSISTANT 10 d rops solution 10 drop (DEBROX) 10 drop, left ear, Once, On Thu02/23/19 at 1115, For 1 dose documented in this encounter Care Teams Child Welfare Assistant Relationship Specialty Start Date End Date Vinnie Belle Jr., M.D. PCP - General 09/25/16 02/24/19 [address] [place] [address] documented as of this encounter
--- OUTSIDE RECORDS SUMMARY | 2022-03-21 10:21 | XMS_ITS | Clinical Summary ---
:1935 Author Organization [facility] [place] [address] Care Team Providers Name Role Phone Tito Jackson MD Primary Care Provider Allergies Active Allergy Reactions Severity Noted Date Comments Iron Rash 08/25/2016 Sulfamethoxazole-Trimethoprim Rash 11/14/2014 Medications Medication Sig Dispensed Refills Start Date End Date Status cholecalciferol (VITAMIN Take 1 capsule 0 11/14/2014 Active D) 1,000 unit capsule by mouth once daily. geriatric Take 1 tablet by 0 01/30/2015 Ac tive efezlmpkiyqg-gbvn-qxqmmj mouth once ls (GERITOL; CENTRUM daily. SILVER) [...] 10/02/2022 Office Visit Maria Dent MD [address] [facility] [address] [phone] (Wo [...] Group MEDICARE PART B MEDICARE PART B [id number] 2001-Presjai ATTN: CLAIMS - HB USE ONLY HB ONLY t [address] [place] [address] BLUE CROSS BLUE CROSS [id number] 2014-[place] [place] [address] [place] [id number] BLUE CROSS MR BLUE CROSS [id number] 2017-Presen [address] [address] [place] [address] [place] [id number] Care Teams Bag Machine Tender Relationship Specialty Start Date End Date Tito Jacksno MD PCP - General Family Practice 08/14/[address] [place] [address] [place] [id number]
--- OUTSIDE RECORDS SUMMARY | 2022-03-21 10:21 | XMS_ITS | Encounter Summary ---
:1935 Author Organization [facility] Address [address] [place] [address] Care Team Providers Name Role Phone Unavailable Primary Care Provider Unavailable Reason for Referral Outpatient (Routine) - Closed Specialty Diagnoses / Procedures Referred By Contact Refer red To Contact Diagnoses Pain Chest Atypical Joleen Harry M.D. [address] [place] [phone] Referral ID Status Reason Start Date Expiration Visits Visits Date Requested Authorized [id number] Closed Continuity of 07/23/2020 07/23/2021 1 1 Care Reason for Visit Auth/Cert Specialty Diagnoses / Procedures Referred By Contact Refer red To Contact Diagnoses Presyncope Chest Pain Procedures Referral ID Status Reason Start Date Expiration Date Visits Requ ested Visits Authorized [id number] 1 1 Encounter Details Date Type Department Care Team Description 07/23/2020 Hospital Encounter [facility] Becca Zepeda M.D. [address] [place] [address] [phone] Presyncope (Primary Dx); [facility] Sapphire De La Cruz M.D. [address] [place] [address] [phone] Pain Chest Atypical [facility] Joleen Harry M.D. [address] [place] [address] [phone] Floor [address] [place] [phone] Social History Tobacco Use Types Packs/Day Years [...] had presented to the emergency room in [place] secondary to not feeling, bilateral shoulder pain, [...] given aspirin 324 mg and transferred to [place] for further workup. Following transfer to [place] cardiology was consulted. She also had an [...] Take 1,000 Units by mouth daily. geriatric lnunzvcy-pvrc-kevg tablet Take 1 tablet by mouth daily. [...] Care Everywhere.Deep Vein Thrombosis and Pulmonary Embolism (German)documented in this encounter Medications at Time of Discharge Medication Sig Dispensed Refills Start Date End Date acetaminophen (TYLENOL) Take 500 mg by mouth 0 500 mg tablet every 6 (six) hours as needed for pain. amLODIPine (NORVASC) 2.5 Take 1.25 mg by mouth 0 07/20/2020 mg tablet daily. geriatric Take 1 tablet by 0 01/30/2015 cnutojux-nbdl-zvxd tablet mouth daily. cholecalciferol (VITAMIN Take 1,000 Units by 0 D3) 1,000 Unit capsule mouth daily. raloxifene (EVISTA) 60 mg Take [...] who presented to the Emergency Department in [place] with complaints of feeling unwell. She had been to her daughter's house and had lunch, stayed late to watch the Tw[place] lose, then went back to her townhouse in [place]. As she was getting ready for bed [...] specific workup. In the Emergency Department in [place] physical examination was unremarkable. Her symptoms had resolved prior to arrival. Laboratory work was relatively unremarkable. Troponins were negative. Chest x-ray similarly so. But her EKG appeared to show a new left bundle branch block. As a result, it was requested that she be transferred to [place] for further evaluation and possible echocardiogram. MEDICAL [...] She resides independently in a townhouse in [place]. There are stairs to the basement that [...] clubbing, or edema. DIAGNOSTICS Laboratory work from [place] remarkable for sodium and potassium of 139 [...] The most recentEKG on our side is 2016. PLAN: The patient plan will be to admit to hospital and monitor on telemetry, ambulate under observation, and echocardiogram in the morning to assess the holosystolic murmur and the aortic valve specifically, although with the strong peripheral pulsations it would suggest she does not have critical aortic stenosis at any rate. The patient will be placed on the [facility] Medical Team for the balance of her hospital stay. Initial hospitalization level 3. Greater than 75 minutes, greater than 50% of which encompassed by counseling, coordination of care, and review of all records. Daryl Zepeda M.D. CT CT Job ID: [id number] documented in this encounter Consult Notes Mukund [...] No chest pain. 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 Yesterday she had [...] felt that this should be evaluated by water meter reader and therefore were going to transfer her. Thefamily wished to go to [place] however [facility] did not have beds available so she was transferred to [facility]. At this point she still [...] 2014 PAST CARDIAC TESTING TTE 12/02/2011 at [facility] for murmur and edema (WT 146lb) [...] mouth daily. 07/20/20 Yes Provider, Historical geriatric mnydengx-hlgd-kuyo tablet Take 1 tablet by mouth daily. [...] of her COVID vaccinations which with the [employer] brand 1st was on June 17 and [...] Ref Range Ventricular Rate ECG/Min 81 BPM VA Interval 208 ms QRSD Interval 138 ms QT Interval 410 ms QTC Interval 476 ms P [place] 61 degrees R [place] 26 degrees T Wave [place] 62 degrees DIAGNOSTIC TESTS CHEST XRAY IMPRESSION: [...] care was discussed with Dr. Mukund Taylor, [facility] Outreach Analysis Manager who expressed understanding and agreement to the [...] DISCHARGE Wheelchair TRANSPORTATION Private Vehicle ACCOMPANIED BY CHUCKING AND SAWING MACHINE OPERATOR and Family: Daughter All belongings sent home [...] 07/23/2020 6:46 AM CDT Patient admitted from [place] ED about 0530. Patient presented to [place] ED due to not feeling well as [...] Name Type Priority Associated Diagnoses Order S [facility] External referral Outpatient Referral Routine Pain Chest [...] Signature Ventricular Rate 77 BPM MUSE ECG/Min VA Interval 180 ms MUSE QRSD Interval 126 ms MUSE QT Interval 400 ms MUSE QTC Interval 452 ms MUSE P [place] 34 degrees MUSE R [place] 14 degrees MUSE T Wave [place] 62 degrees MUSE Specimen Anatomical Collection Method Collection Time Receive d Time (Source) Location / / Volume Laterality 07/23/2020 6:43 PM 6:56 CDT PM CDT Impressions MUSE - 07/23/2020 6:56 PM CDT Normal sinus rhythm Left bundle branch block with secondary ST-T abnormalities When compared with ECG of 23-JUL-2020 07 :14, VA interval has decreased Reviewed by SHEA Montanez Narrative This result has an attachment that is no t available. Procedure Note Aly Munoz M.D. - 07/23/2020Forma tting of this note might be different from the original. IMPRESSION: Normal sinus rhythm Left bundle branch block with secondary ST-T abnormalities When compared with ECG of 23-JUL-2020 07 :14, VA interval has decreased Reviewed by SHEA Montanez [...] eGFR-Black/Afri 52 (L) >=60 07/23/2020 MKTO can Cambodian mL/min/BSA 12:05 PM CDT Comment: ----ADDITIONAL INFORMATION---- Estimated GFR calculated using the 2009 CKD_EPI creatinine equation. eGFR Non-Black/ 45 (L) >=60 mL/min/BSA 07/23/2020 12:05 PM CDT TO Cambodian Comment: ----ADDITIONAL INFORMATION---- Estimated GFR calculated using the 2009 CKD_EPI creatinine equation. Calcium, Total, P 9.9 8.8 - 10.2 mg/dL 07/23/2020 12:0 5 PM CDT [facility] Glucose, P 100 70 - 140 mg/dL 07/23/2020 12:05 PM CDT [facility] Specimen Anatomical Collection Method Collection Time Receive d Time (Source) Location / / Volume Laterality Blood (Blood, 07/23/2020 11:21 07/23/2020 Venous) AM CDT 11:45 AM CDT Joleen Harry M.D. LAB BLOOD ADD-ON Performing Organization Address City/State/ZIP Code Phon e Number [facility]- [address] [place] [address] [place] [address] (TTE) 2D ECHO DOPPLER COLOR (07/23/2020 10:54 AM CDT) [facility] Method Time Signature Ejection Fraction 56 [...] effusion. For the complete report, see the [employer] Documents. Narrative 07/23/2020 12:55 PM CDT For the complete report, see the [employer] Documents. Final Impressions 1. Normal left ventricular [...] tation. 7. No previous studies available for [employer] [facility]. Procedure Note Maggie Arceo M.D. - 07/23/2020Forma [...] tation. 7. No previous studies available for [employer]. Findings Bedside echo performed. LEFT VENTRICLE: Normal [...] Signature Ventricular Rate 81 BPM MUSE ECG/Min VA Interval 208 ms MUSE QRSD Interval 138 ms MUSE QT Interval 410 ms MUSE QTC Interval 476 ms MUSE P [place] 61 degrees MUSE R [place] 26 degrees MUSE T Wave [place] 62 degrees MUSE Specimen Anatomical Collection Method Collection Time Receive d Time (Source) Location / / Volume Laterality 07/23/2020 7:14 AM 8:06 CDT AM CDT Impressions MUSE - 07/23/2020 7:24 AM CDT Normal sinus rhythm with 1st degree A-V block Left bundle branch block T wave abnormality, consider lateral isc hemia When compared with ECG of 22-JUL-2020 21 :07, VA interval has increased Reviewed by SHEA Lilly Narrative This result has an attachment that is no t available. Procedure Note Jason Doan M.D. - 07/23/2020Formatt ing of this note might be different from the original. IMPRESSION: Normal sinus rhythm with 1st degree A-V block Left bundle branch block T wave abnormality, consider lateral isc hemia When compared with ECG of 22-JUL-2020 21 :07, VA interval has increased Reviewed by SHEA Lilly [...]
--- OUTSIDE RECORDS SUMMARY | 2022-03-21 10:21 | XMS_ITS | Clinical Summary ---
:1935 Author Organization [facility] Address [address] [place] [address] Care Team Providers Name Role Phone Unavailable Primary Care Provider Unavailable Source Comments Patient records contain information from all sites at [facility]. For routine questions regarding patient records, call [phone] during business hours, M-F 8:00 AM - 5:00 PM Central Time. Record requests for emergency care only can be directed to [phone] at any time.[facility] Allergies Active Allergy Reactions Severity Noted Date [...] 1 tablet by 0 01/30/2015 Ac tive nqazgdrk-otnk-kdkz mouth daily. tablet amLODIPine (NORVASC) Take 1.25 [...] e / Group Dates MEDICARE MEDICARE A [id number] 2001-Pres [address] [place] [address] BLUE CROSS BCBS NOTTAWASEPPI POTAWATOMI [id number] 2016-Pres [phone] PO PRICILA X Cost Share BLUE SHIELD BLUE COST ent [phone] [place] [address] Advance Directives For more information, please contact: [phone] Latest Code Status on File Code Status Date Activated Date Inactivated Comments Full Code 07/23/2020 6:09 AM 07/23/2020 9:41 PM Question Answer Comments Full Code: Discussed
--- OUTSIDE RECORDS SUMMARY | 2022-03-21 10:21 | XMS_ITS | Encounter Summary ---
:1935 Author Organization [facility] Address [address] [place] [address] Care Team Providers Name Role Phone Unavailable [...] Department Care Team Description 07/22/2020 - Emergency [facility] BhavinfoMercedez reno Chest (Primary Dx); 07/23/2020 Department D, M.D. Presyncope; [address] [place] [phone] Social History Tobacco Use Types Packs/Day Years [...] geriatric Take 1 tablet by 0 01/30/2015 mwbktnoq-igtf-waov tablet mouth daily. raloxifene (EVISTA) 60 mg Take 60 mg by mouth 0 1 04/25/2018 tablet at bedtime. simvastatin (ZOCOR) 10 mg Take 10 mg by mouth 0 0 10/28/2014 tablet at bedtime. amLODIPine (NORVASC) 2.5 Take 1.25 mg by mouth 0 07/20/2020 mg tablet daily. Vanicream-plasticized base Apply 1 application 0 06/17/2016 80-20 % cream with topically 3 (three) triamcinolone acetonide 40 times a day. mg/mL suspension documented as of this encounter ED Notes Mercedez Serra M.D. - 07/22/2020 10:25 PM CDT [facility] EMERGENCY DEPARTMENT ENCOUNTER Patient Name: [...] gen CANCELED Narrative: Specimen Information: Specimen ID: [id number] Specimen Type: Blood Specimen Collection Start Date: 07/22/2020 11:13 PM Specimen Received Date: 07/22/2020 11:23 PM Specimen ID: [id number] Specimen Type: Blood RADIOLOGY: DX Chest AP [...] patient is agreeable for transferand family prefers [facility]. ED Course as of Jul 23 356 Sun Jul 22, 2020 222 Prior are similar, patient with only one kidney and follow with renal Creatinine, P(!): 1.31 2236 Call placed to [facility] [address] Accepted [address] [facility] by Dr Garcia Mon Jul 23, 2020 [...] limited historian make her higher risk. 0230 [facility] unfortunately has added a delay in getting a bed. Calls placed to [facility] as an alternative option [phone] [facility] [address] Dr Morse [phone] Initial was 9, 2 hr 10, now 6 hr 11. likely normal variation in the setting of her kidney disease. No pain. Troponin T, 5th gen(!): 11 Final Diagnoses: as of Jul 23 356 Pain Chest Presyncope Bundle Branch Block Left DISPOSITION/PLAN: [facility] DISCHARGE MEDICATIONS: New Prescriptions No medications on [...] supplements. ??If the result does not ma [facility] clinical observations, repeat testing after patient refrains fr om the use of supplements for at least 12 hours. Specimen Anatomical Collection Method Collection Time Receive d Time (Source) Location / / Volume Laterality Blood (Blood, 07/23/2020 3:29 AM 07/24/19 3:39 Venous) CDT AM CDT Mercedez Serra M.D. LAB BLOOD ADD-ON Performing Organization Address City/State/ZIP Code Phon e Number [facility] [address] [place], [place] [address] [place] [address] [address] SARS Coronavirus 2, PCR Rapid, V Symptomatic (07/22/2020 11:14 PM CDT) Patholo gist Method Time Signature SARS CoV-2, Undetected Undetected 07/22/2020 [facility] PCR, Rapid, V 11:43 PM CDT Comment: ----ADDITIONAL INFORMATION---- This RT-PCR test was performed using the Ralph SARS-CoV-2 and Influenza A/B Reagent assay from [employer], which has received Emergency Use Authori zation(EUA) by the U.S. Food and Drug Administration . Fact sheets for this Emergency Use Autho rization (EUA) assay can be found at the following link s: For Healthcare Providers: https://www.fda.gov/media/101070/downloa d For Patients: https://www.fda.gov/media/176460/downloa d SARS Coronavirus 2, Source, Swab, Nasopharynx 07/12 11:19 PM CDT [facility] Rapid Specimen Anatomical Collection Method Collection Time Receive d Time (Source) Location / / Volume Laterality Varies 07/22/2020 11:14 07/22/2020 (Nasopharynx) PM CDT 11:19 PM CDT Mercedez Serra M.D. LAB MICROBIOLOGY - GENERAL O MYRON Performing Organization Address City/[facility] Phon e Number [facility]- [address] [place] [address] [facility] [place] [address] [address] Troponin T, 2H/6H, 5th Gen (07/22/2020 [...] [facility] Comment: Result canceled by the thu y. Specimen Anatomical Collection Method Collection Time Receive d Time (Source) Location / / Volume Laterality Blood (Blood, 07/22/2020 11:13 07/22/2020 Venous) PM CDT 11:23 PM CDT Narrative [facility] - 07/22/2020 11:38 PM CDT Specimen Information: Specimen ID: [id number] Specimen Type: Blood Specimen Collection Start Date: 07/23/19 11:13 PM Specimen Received Date: 07/22/2020 11:23 PM Specimen ID: [id number] Specimen Type: Blood Mercedez Serra M.D. LAB BLOOD TROPONIN Performing Organization Address City/State/ZIP Code Phon e Number [address] [place] [address] [address] [place] [address] [address] [place] DX Chest AP or PA and [...] Mercedez Serra M.D. IMG DIAGNOSTIC IMAGING PROCE DURES Troponin T, Baseline, 5th gen (07/22/2020 9:10 PM CDT) P athologist Signature Troponin T, 9 <=10 ng/L 07/22/2020 [facility] Baseline, 5th 9:40 PM CDT gen Comment: Biotin has been identified by the ellyn galvan as a potential interfering substance. ??Higher concentr ations of biotin may be found in multivitamins, hair/nail supple ments, and workout supplements. ??If the result does not ma [facility] clinical observations, repeat testing after patient refrains fr om the use of supplements for at least 12 hours. Specimen Anatomical Collection Method Collection Time Receive d Time (Source) Location / / Volume Laterality Blood (Blood, 07/22/2020 9:10 PM 07/23/19 21 9:17 Venous) CDT PM CDT Mercedez Serra M.D. LAB BLOOD TROPONIN Performing Organization Address City/State/ZIP Code Phon e Number [facility]- [address] [place], [place] [address] [facility] [place] [address] [address] [facility] [address] (ABNORMAL) Basic Metabolic [...] eGFR-Black/Afri 43 (L) >=60 07/22/2020 [facility] can [place]erm[place] mL/min/BSA 9:35 PM CDT Comment: ----ADDITIONAL INFORMATION---- Estimated GFR calculated using the 2009 CKD_EPI creatinine equation. eGFR Non-Black/ 38 (L) >=60 mL/min/BSA 07/22/2020 9:35 PM CDT [facility] [place] Comment: ----ADDITIONAL INFORMATION---- Estimated GFR calculated using [...] Organization Address City/State/ZIP Code Phon e Number [facility]- [address] [place] [address] [place] [address] [place] [address] [facility] [address] CBC with Differential, [...] Organization Address City/State/ZIP Code Phon e Number [facility]- [address] [place], [place] [address] [facility] [place] [address] [place] [address] [place] ECG 12 Lead (07/22/2020 9:07 PM CDT) P athologist Signature Ventricular Rate 75 BPM MUSE ECG/Min [place] Interval 162 ms MUSE QRSD Interval 142 ms MUSE QT Interval 432 ms MUSE QTC Interval 482 ms MUSE P [place] 40 degrees MUSE R [place] 36 degrees MUSE T Wave [place] 36 degrees MUSE Specimen Anatomical Collection Method [...]
--- OUTSIDE RECORDS SUMMARY | 2022-03-21 10:21 | XMS_ITS | Encounter Summary ---
:1935 Author Organization [facility] Address [address] [place] [address] Care Team Providers Name Role Phone Barbra Ryder M.D., Vinnie Vasquez Primary Care Provider Encounter Details Date Type Department Care Team Description 02/18/2017 Hospital Encounter Department of Vinnie Belle Mammogram Radiology in [place] Ryder M.D. Average Risk Patient [place], [place] [address] [place] [phone] Social History Tobacco Use Types Packs/Day Years Used Date Smoking Tobacco: Former Sex Assigned at Date Recorded Not on file documented as of this encounter Medications at Time of Discharge Medication Sig Dispensed Refills Start Date End Date cholecalciferol (VITAMIN Take 1,000 Units by 0 D3) 1,000 Unit capsule mouth daily. geriatric Take 1 tablet by 0 01/30/2015 ypkvhatw-uldg-zpts tablet mouth daily. simvastatin (ZOCOR) 10 mg [...] fo r this SCREENING (most inpatients AM PACKING MACHINE INSPECTOR Mammogram Average proced ure are in BILATERAL and all Risk Patient the results outpatients) section. documented in this encounter Results BI Breast Screening Bilateral (02/18/2017 11:14 AM PACKING MACHINE INSPECTOR) Anatomical Region Laterality Modality Breast Bilateral Mammography Specimen (Source) Anatomical Collection Method Collection Time Re ceived Time Location / / Volume Laterality 02/18/2017 3:25 PM PACKING MACHINE INSPECTOR Impressions 02/18/2017 3:27 PM PACKING MACHINE INSPECTOR IMPRESSION: ??Negative. RECOMMENDATION: ??Annual Screening Mammo gram ASSESSMENT: ??BI-RADS: 1: Negative. Narrative 02/18/2017 3:27 PM PACKING MACHINE INSPECTOR EXAM: ??BI BREAST SCREENING BILATERAL Current study was evaluated with a [employer] Aided Detection (CAD) system. INDICATION: ??Screening mammogram. COMPARISON: ??Prior exams were available for comparison. DENSITY: ??b. There are scattered areas of fibroglandular density. FINDINGS: ??No mammographic findings of malignancy. Procedure Note Kristopher Morris M.D. - 02/18/2017Fo rmatting of this note might be different from the original. EXAM: BI BREAST SCREENING BILATERAL Current study was evaluated with a CARD.comu ter Aided Detection (CAD) system. INDICATION: Screening [...] Patient documented in this encounter Care Teams Animal Attendants And Trainers Relationship Specialty Start Date End Date Vinnie Belle Jr., M.D. PCP - General 09/25/16 02/24/[address] [place] [address] documented as of this encounter
--- OUTSIDE RECORDS SUMMARY | 2022-03-21 10:21 | XMS_ITS | Encounter Summary ---
:1935 Author Organization [facility] Address [address] [place] [address] Care Team Providers Name Role Phone Barbra Ryder M.D., Vinnie Vasquez Primary Care Provider Encounter Details Date Type Department Care Team Description 02/22/2018 Hospital Encounter Department of Vinnie Belle Mammogram Radiology in [place]elani Ryder M.D. Breast Cancer [place], [place] [address] [place] [phone] Social History Tobacco Use Types Packs/Day Years Used Date Smoking Tobacco: Former Sex Assigned at Date Recorded Not on file documented as of this encounter Medications at Time of Discharge Medication Sig Dispensed Refills Start Date End Date cholecalciferol (VITAMIN Take 1,000 Units by 0 D3) 1,000 Unit capsule mouth daily. geriatric Take 1 tablet by 0 01/30/2015 jvqualkj-qfhe-asdm tablet mouth daily. simvastatin (ZOCOR) 10 mg [...] ults for BILATERAL WITH (most inpatients AM FITNESS AND WELLNESS MANAGER Mammogram Breast this procedure TOMOSYNTHESIS and all Cancer are in the outpatients) results section. documented in this encounter Results BI Breast Screening Bilateral with Tomosynthesis (02/22/2018 10:48 AM FITNESS AND WELLNESS MANAGER) Anatomical Region Laterality Modality Breast, Breast Imaging RST LOS, Breast Imaging ARZ LOS, [place] [address] Bilateral Mammography Imaging FLA LOS Specimen (Source) Anatomical Collection Method Collection Time Re ceived Time Location / / Volume Laterality 02/22/2018 11:35 AM FITNESS AND WELLNESS MANAGER Impressions 02/22/2018 11:37 AM FITNESS AND WELLNESS MANAGER IMPRESSION: ??Negative. RECOMMENDATION: ??Annual Screening Mammo gram ASSESSMENT: ??BI-RADS: 1: Negative. Narrative 02/22/2018 11:37 AM FITNESS AND WELLNESS MANAGER EXAM: ??BI BREAST SCREENING BILATERAL WITH TOMOSYNTHESIS Current study was evaluated with a [employer] ter Aided Detection (CAD) system. INDICATION: ??Screening [...] Cancer documented in this encounter Care Teams Printing Table Worker Relationship Specialty Start Date End Date Vinnie Belle Jr., M.D. PCP - General 09/25/16 02/24/19 [address] [place] [address] documented as of this encounter
--- OUTSIDE RECORDS SUMMARY | 2022-03-21 10:21 | XMS_ITS | Encounter Summary ---
:1935 Author Organization [facility] Address [address] [place] [address] Care Team Providers Name Role Phone Barbra Ryder M.D., Vinnie Vasquez Primary Care Provider Encounter Details Date Type Department Care Team Description 02/23/2019 Hospital Encounter Department of Vinnie Belle Routine Screening Radiology in Jelani Ryder M.D. Breast Exam [place], [place] [address] [place] [phone] Social History Tobacco Use Types Packs/Day Years Used Date Smoking Tobacco: Former Cigarettes 0 Smokeless Tobacco: Never Sex Assigned at Date Recorded Not on file documented as of this encounter Medications at Time of Discharge Medication Sig Dispensed Refills Start Date End Date cholecalciferol (VITAMIN Take 1,000 Units by 0 D3) 1,000 Unit capsule mouth daily. geriatric Take 1 tablet by 0 01/30/2015 iibccymo-kvuk-gsda tablet mouth daily. raloxifene (EVISTA) 60 mg [...] Screening Results for this BILATERAL WITH AM SUPER[employer] Breast Exam procedure are in TOMOSYNTHESIS the results section. documented in this encounter Results BI Breast Screening Bilateral with Tomosynthesis (02/23/2019 10:39 AM [employer]) Anatomical Region Laterality Modality Breast, Breast Imaging RST LOS, Breast Imaging ARZ LOS, [address] Bilateral Mammography Imaging FLA LOS Specimen (Source) Anatomical Collection Method Collection Time Re ceived Time Location / / Volume Laterality 02/23/2019 11:15 AM [employer] Impressions 02/23/2019 11:17 AM [employer] Negative. RECOMMENDATION: ??Annual Screening Mammo gram ASSESSMENT: ??BI-RADS: 1: Negative. Narrative 02/23/2019 11:17 AM [employer] EXAM: ??BI BREAST SCREENING BILATERAL WITH TOMOSYNTHESIS [...] Exam documented in this encounter Care Teams Pavilion Cutter Relationship Specialty Start Date End Date Vinnie Belle Jr., M.D. PCP - General 09/25/16 02/24/19 [address] [place] [address] documented as of this encounter
--- OUTSIDE RECORDS SUMMARY | 2022-03-21 10:21 | XMS_ITS | Encounter Summary ---
:1935 Author Organization [facility] Address [address] [place] [address] Care Team Providers Name Role Phone Barbra Ryder M.D., Britney Vasquez Primary Care Provider Encounter Details Date Type Department Care Team Description 11/10/2016 Hospital Encounter HX [facility] ED Guido Rao M.D. [address] [place], [place] [phone] (Wo rk) Social History [...] 11/10/2016 5:14 AM CDT ED Depart Summary [facility] Emergency Department Clinical Discharge Summary PERSON INFORMATION Name KAROLINE NUÑEZ Age 80 Years 1935 12:00 AM Sex Female Language Gambian PCP BRITNEY BALDWIN MD Marital Status Visit Id Visit Reason Rib/trunk pain-swelling; ABD PAIN Specialty Enc Type Emergency Med Service Emergency Medicine Referred by Track Group [email or web address] ED Discharge 11/10/2016 5:05 AM Tracking Id [id number] Checkout 11/10/2016 5:05 AM Checkin 11/10/2016 3:56 AM Acuity 3 -Urgent Dispo Type * Discharged to Home or Self Care Arrival 11/10/2016 3:56 AM Reg Status LOS 000 01:09 Address: [address] [place] [phone] Comment: PROVIDER INFORMATION Provider Role Provider Contact Time SANGEETHA MORALES COMMUTATOR PRESSER Nurse 11/10/16 04:08 GUIDO RAO MD ED Provider 11/10/16 04:20 DIAGNOSIS Comment: PATIENT EDUCATION INFORMATION Instructions: CHEST WALL STRAIN Follow up: With: Address: When: BRITNEY BALDWIN [address] [place] [phone] Business (1) Within 3 - 5days [facility] POWER[facility] Document Id: [id number] Sangeetha Morales R.N. - 11/10/2016 5:14 AM CDT ED Discharge Instructions [address] [address] Name: KAROLINE NUÑEZ Date of : 1935 12:00 AM Visit Date: 11/10/2016 3:56 AM [facility] Number: [id number] Address: [address] [place] [phone] Primary Care Provider: BRITNEY BALDWIN MD IMPORTANT: [facility] in [place] would like to thank you for allowing us to assistyou with your healthcare needs. The following includes patient education materials and information regarding your injury/illness. Diagnosis: Follow-Up Instructions: With: Address: When: BRITNEY BALDWIN [address] [place] [phone] Business (1) Within 3 - 5days Your [...] as directed by your healthcare provider ?? [phone] [place] [address]. All rights reserved. This information is not [...] if you dont have one. Go to [email or web address] and click on Create Your Account. Then, follow the directions to complete the online form. Youll be asked for your [facility] number which you can find at [...] arrange a ride home with a responsible alliance party. ISUDHA ALICE ROSE , or responsible alliance party have received this information and my questions have been answered. I have discussed any challenges I see with this plan with the nurse or physician. Patient Signature or Responsible Republican/Relationship Date Time Provider Signature Date Time IMPORTANT: [...] arrange a ride home with a responsible alliance party. SUDHA France ALICE ROSE , or responsible alliance party have received this information and my questions have been answered. I have discussed any challenges I see with this plan with the nurse or physician. Patient Signature or Responsible Republican/Relationship Date Time Provider Signature Date Time This document has images extracted. Please consider using [employer] for all your patient education needs. Source: [facility] POWERCHART Document Id: [id number] Sangeetha Morales R.N. - 11/10/2016 5:12 AM [...] MORALES RN - 11/10/2016 5:12 CDT Source: [facility] Document Id: [id number] CDT!9 documented in this encounter Medications at Time of Discharge Medication Sig Dispensed Refills Start Date End Date cholecalciferol (VITAMIN Take 1,000 Units by 0 D3) 1,000 Unit capsule mouth daily. geriatric Take 1 tablet by 0 01/30/2015 gaarajbr-qmry-nszf tablet mouth daily. simvastatin (ZOCOR) 10 mg [...] MORALES RN - 11/10/2016 5:12 CDT Source: [facility] Document Id: [id number] CDT!10 Guido Rao M.D. - 11/10/2016 4:33 [...] at 09:29 CDT.. Surgical history: Cataract extraction ([id number]) on 07/24/2016 at 80 Years. Comments: 08/19/2016 14:50 - CHANO ANDERSON RN left eye Cholecystectomy ([id number]). Lumpectomy ([id number]). Appendectomy ([id number]). Colonoscopy ([id number]). Comments: 06/17/2016 10:03 - CHANO MO RN 2010 Mammogram ([id number]). Comments: 06/17/2016 10:03 - CHANO MO RN 2015 Tonsillectomy ([id number]). Bunionectomy ([id number]).. Family history: Myocardial infarction Son CVA - [...] Stable. Disposition: Discharged: to home. Prescriptions: Prescription [facility]: Ultram 50 mg oral tablet (Prescribe): [...] RAO MD On: 11/10/2016 05:27 AM Source: [facility] POWERCHART Document Id: [id number]} Sangeetha Morales R.N. 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 ) Name of Problem: Arthritis Inflammatory ; Recorder: CHANO MO RN; Confirmation: Confirmed ; Classification: Nursing ; Code: M06.4 ; Contributor System: PowerChart ; Last Updated: 06/17/2016 9:57 MAC ARTIST ; Life Cycle Date: 06/17/2016 ; Life Cycle Status: Active ; Responsible Provider: CHANO MO RN; Vocabulary: ICD-10-CM Cerumen Impacted NOS (ICD-10-CM :H61.20 ) Name of Problem: Cerumen Impacted NOS ; Recorder: CHANO MO RN; Confirmation: Confirmed ; Classification: Nursing ; Code: H61.20 ; Contributor System: PowerChart ; Last Updated: 06/17/2016 9:56 MAC ARTIST ; Life Cycle Date: 06/17/2016 ; Life Cycle Status: Active; Responsible Provider: CHANO MO RN; Vocabulary: ICD-10-CM Cervical Disc Disorder With Myelopathy (ICD-10-CM :M50.00 ) Name of Problem: Cervical Disc Disorder With Myelopathy ; Recorder: CHANO MO RN; Confirmation: Confirmed ; Classification: Nursing ; Code: M50.00 ; Contributor System: PowerChart ; Last Updated: 06/17/2016 9:49 MAC ARTIST ; Life Cycle Date: 10/2016 ; Life Cycle Status: Active ; Responsible Provider: CHANO MO RN; Vocabulary: ICD-10-CM Chronic Kidney Disease (CKD) Stage 3 GFR 30-59 (ICD-10-CM :N18.3 ) Name of Problem: Chronic Kidney Disease (CKD) Stage 3 GFR 30-59 ; Recorder: CHANO MO RN; Confirmation: Confirmed ; Classification: Nursing ; Code: N18.3 ; Contributor System: PowerChart ; Last Updated: 06/17/2016 9:56 MAC ARTIST ; Life Cycle Date: 06/17/2016 ; Life [...] System: PowerChart ; Last Updated: 06/17/2016 9:54 MAC ARTIST ; Life Cycle Date: 06/17/2016 ; Life [...] System: PowerChart ; Last Updated: 06/17/2016 9:54 MAC ARTIST ; Life Cycle Date: 06/17/2016 ; Life Cycle Status: Active ; Responsible Provider: CHANO MO RN; Vocabulary: ICD-10-CM Hyperlipidemia Mixed (ICD-10-CM :E78.2 ) Name of Problem: Hyperlipidemia Mixed ; Recorder: CHANO MO RN; Confirmation: Confirmed ; Classification: Nursing ; Code: E78.2 ; Contributor System: PowerChart ; Last Updated: 06/17/2016 9:56 MAC ARTIST ; Life Cycle Date: 06/17/2016 ; Life [...] System: PowerChart ; Last Updated: 06/17/2016 9:50 MAC ARTIST ; Life Cycle Date: 06/17/2016 ; Life Cycle Status: Active ; Responsible Provider: CHANO MO RN; Vocabulary: ICD-10-CM Osteoporosis NOS (ICD-10-CM :M81.0 ) Name of Problem: Osteoporosis NOS ; Recorder: CHANO MO RN; Confirmation: Confirmed ; Classification: Nursing ; Code: M81.0 ; Contributor System: PowerChart ; Last Updated: 06/17/2016 9:51 MAC ARTIST ; Life Cycle Date: 06/17/2016 ; Life Cycle Status: Active ; Responsible Provider: CHANO MO RN; Vocabulary: ICD-10-CM Pain Back NOS (ICD-10-CM :M54.9 ) Name of Problem: Pain Back NOS ; Recorder: CHANO MO RN; Confirmation: Confirmed ; Classification: Nursing ; Code: M54.9 ; Contributor System: PowerChart ; Last Updated: 06/17/2016 9:55 MAC ARTIST ; Life Cycle Date: 06/17/2016 ; Life Cycle Status: Active ; Responsible Provider: CHANO MO RN; Vocabulary: ICD-10-CM Pain Musculoskeletal NOS (ICD-10-CM :M79.1 ) Name of Problem: Pain Musculoskeletal NOS ; Recorder: CHANO MO RN; Confirmation: Confirmed ; Classification: Nursing ; Code: M79.1 ; Contributor System: PowerChart ; Last Updated: 06/17/2016 9:54 MAC ARTIST ; Life Cycle Date: 06/17/2016 ; Life Cycle Status: Active ; Responsible Provider: MO, CHANO M RN; Vocabulary: ICD-10-CM Rash NOS (ICD-10-CM :R21 ) Name of Problem: Rash NOS ; Recorder: CAHNO MO RN; Confirmation: Confirmed ; Classification: Nursing ; Code: R21 ; Contributor System: PowerChart ; Last Updated: 06/17/2016 9:57 MAC ARTIST ; Life Cycle Date: 06/17/2016 ; Life [...] System: PowerChart ; Last Updated: 06/17/2016 9:52 MAC ARTIST ; Life Cycle Date: 06/17/2016 ; Life Cycle Status: Active ; Responsible Provider: CHANO MO RN; Vocabulary: ICD-10-CM Venous Disease (ICD-10-CM :I87.9 ) Name of Problem: Venous Disease ; Recorder: CHANO MO RN; Confirmation: Confirmed ; Classification: Nursing ; Code: I87.9 ; Contributor System: PowerChart ; LastUpdated: 06/17/2016 9:53 MAC ARTIST ; Life Cycle Date: 06/17/2016 ; Life Cycle Status: Active ; ResponsibleProvider: CHANO MO RN; Vocabulary: ICD-10-CM Diagnoses(Active) Rib/trunk pain-swelling Date: 11/10/2016 ; Diagnosis Type: Reason For Visit ; Confirmation: Complaint of ; Clinical Dx: Rib/trunk pain-swelling ; Classification: Medical ; Clinical Service: Emergency medicine ; Code: PNED ; Probability: 0 ; Diagnosis Code: [id number] Triage Chief Complaint Description : was reaching up in cupboard on saturday and sharp pain started left mid-rib cage. No matter what postion she moves in- it hurts. Information Given By : Patient, Son Present in Room During Exam/Procedure : Son Mode of Arrival ED : Private vehicle Track : Medical Languages : Gambian Patient Informed of Triage Location : Emergency [...] Onset : Sudden (Comment: Thursday [CARMENSANGEETHA RN - 11/10/2016 4:00 CDT] ) Quality : Sharp Aggravating Factors : Movement CARMENSANGEETHA RN 11/10/2016 4:00 CDT Comfort Measures Comfort Measures Grid Relaxation : Yes SANGEETHA MORALES RN 11/10/2016 4:00 CDT JOANA JOANA Level 1 : No JOANA Level 2 : No JOANA Level 3 : Many Vital Signs JOANA : No SANGEETHA MORALES RN 11/10/2016 4:00 CDT DCP GENERIC CODE Tracking Acuity : 3 -Urgent Tracking Group [facility] CARMENSANGEETHA RN 11/10/2016 4:00 CDT Allergy Latex Reaction : [...] Reactions: rash ; Created By: GAGAN TRAN CMA; Reaction Status: Active ; Category: Drug ; Substance: zinc acetate containing compounds ; Type: Allergy ; Updated By: GAGAN TRAN SYSTEMS SECURITY CONSULTANT; Reviewed Date: 11/10/2016 4:06 CDT ID Screen [...] MORALES RN - 11/10/2016 4:00 CDT Source: [facility] Document Id: [id number] CDT!119 documented in this encounter Miscellaneous Notes [...] MORALES RN - 11/10/2016 5:13 CDT Source: [facility] Document Id: [id number] CDT!5 Miscellaneous - Sangeetha Morales R.N. - [...] MORALES RN - 11/10/2016 5:13 CDT Source: [facility] Document Id: [id number] CDT!11 Miscellaneous - Conversion, Historical Provider Ser - 11/10/2016 5:05 AM CDT Coding Summary-Paper Based CODING DATE: 11/19/2016 FINAL [facility] STATUS: * Discharged to Home or [...] VERA Date Saved: 11/19/2016 08:40 am Source: [facility] Document Id: [id number] documented in this encounter Plan of Treatment [...] CDT Addenda Addendum by Provider, Kelechi Rosario n 11/10/2016 4:44 AM CDT RAD^^^MA XR [...] No acute cardiopulmonary process noted. Jordan Bailey R.TXenia(R)(CT), R.T.(R) IMG DIAGNOSTIC YAS GING PROCEDURES documented in this encounter Visit Diagnoses Not on filedocumented in this encounter Care Teams Manager Administrative Relationship Specialty Start Date End Date Britney Baldwin Jr., M.D. PCP - General 09/25/16 02/24/19 [address] [place] [address] documented as of this encounter
--- OUTSIDE RECORDS SUMMARY | 2022-03-21 10:22 | XMS_ITS | Encounter Summary ---
:1935 Author Organization [facility] Address [address] [place] [address] Care Team Providers Name Role Phone Unavailable Primary Care Provider Unavailable Encounter Details Date Type Department Care Team Description 03/02/2015 Hospital Encounter HX [facility] Vinnie Aguilar Jr., M.D. [address] [place], [place] [address] (Wo rk) Social History [...] geriatric Take 1 tablet by 0 01/30/2015 hfzbnyic-cdfr-lqkn tablet mouth daily. simvastatin (ZOCOR) 10 mg Take 10 mg by 0 015 tablet mouth at bedtime. raNITIdine (ZANTAC) 150 mg 150 mg. 0 5 07/23/2020 tablet documented as of this encounter Miscellaneous Notes Miscellaneous - Conversion, Historical Provider Ser - 03/02/2015 11:59 PM STUDENT CAREER DEVELOPMENT SPECIALIST Coding Summary-Paper Based CODING DATE: 03/05/2015 FINAL [facility] STATUS: * Discharged to Home or Self [...] FAGAN Date Saved: 03/05/2015 10:27 am [facility] Document Id: [id number] documented in this encounter Plan of Treatment Not on filedocumented as of this encounter Procedures Procedure Name Priority Date/Time Associated Diagnosis Comme nts BI BREAST SCREENING Routine 03/02/2015 10:00 AM R esults for this BILATERAL STUDENT CAREER DEVELOPMENT SPECIALIST procedure are i n the results section. documented in this encounter Results BI Breast Screening Bilateral (03/02/2015 10:00 AM STUDENT CAREER DEVELOPMENT SPECIALIST) Anatomical Region Laterality Modality Breast Bilateral Mammography Specimen (Source) Anatomical Collection Method Collection Time Re ceived Time Location / / Volume Laterality 03/02/2015 10:00 AM STUDENT CAREER DEVELOPMENT SPECIALIST Addenda Addendum by Provider, Kelcehi Rosario 03/02/2015 10:00 AM STUDENT CAREER DEVELOPMENT SPECIALIST RAD^^^MA MA Mammo Screening w/ CADD 03/02/2015 10:00:00 Impressions 03/02/2015 10:37 AM STUDENT CAREER DEVELOPMENT SPECIALIST BI-RADS 1. ??NEGATIVE. RECOMMENDATION: Routine yearly mammogram . BREAST MAMMOGRAPHY - GENERAL OBSERVATION S: ??The false negative rate for mammography is 15-20%. ??It cannot b e used, therefore, to replace the regular physical examination. ??A no rmal or noncontributory mammogram report also should not deter t he aggressive further workup of any suspected palpable masses. Narrative 03/02/2015 10:37 AM STUDENT CAREER DEVELOPMENT SPECIALIST Bilateral digital screening Mammography with computer-aided detection, [...]
--- OUTSIDE RECORDS SUMMARY | 2022-03-21 10:22 | XMS_ITS | Encounter Summary ---
:1935 Author Organization [facility] Address [address] [place] [address] Care Team Providers Name Role Phone Unavailable [...] geriatric Take 1 tablet by 0 01/30/2015 vlcspyzy-zdkb-iiev tablet mouth daily. simvastatin (ZOCOR) 10 mg Take 10 mg by 0 015 tablet mouth at bedtime. raNITIdine (ZANTAC) 150 mg 150 mg. 0 5 07/23/2020 tablet documented as of this encounter Miscellaneous Notes Miscellaneous - Conversion, Historical Provider Ser - 05/22/2016 11:59 PM WEAPONS SPECIALIST Coding Summary-Paper Based CODING DATE: 06/03/2016 FINAL [facility] STATUS: * Discharged to Home or [...] MORAN Date Saved: 06/03/2016 12:11 pm Source: [facility] Document Id: [id number] documented in this encounter Plan of Treatment Not on filedocumented as of this encounter Visit Diagnoses Not on filedocumented in this encounter
--- OUTSIDE RECORDS SUMMARY | 2022-03-21 10:22 | XMS_ITS | Encounter Summary ---
:1935 Author Organization [facility] Address [address] [place] [id number] Care Team Providers Name Role Phone Unavailable Primary Care Provider Unavailable Encounter Details Date Type Department Care Team Description 05/22/2016 Hospital Encounter HX [facility] Charisma Villegas P.A.-C., VANDANA Social History Tobacco Use Types Packs/Day Years Used Date Smoking Tobacco: Former Sex Assigned at Date Recorded Not on file documented as of this encounter Last Filed Vital Signs Vital Sign Reading Time Taken Comments Blood Pressure 132/64 05/22/2016 3:32 PM [employer] Pulse 112 05/22/2016 3:32 PM [employer]END[employer] Temperature - - Respiratory Rate - - [...] geriatric Take 1 tablet by 0 01/30/2015 [id number] tablet mouth daily. simvastatin (ZOCOR) 10 mg Take 10 mg by 0 015 tablet mouth at bedtime. raNITIdine (ZANTAC) 150 mg 150 mg. 0 5 07/23/2020 tablet documented as of this encounter Progress Notes James Huffman P.A.-C. - 05/22/2016 2:44 PM CST [id number] CHIEF COMPLAINT/REASON FOR VISIT Sore throat. Please [...] Mildly tachycardic at 112. NECK: Supple. SKIN: [place], warm and dry. IMPRESSION/REPORT/PLAN 1. Non-Streptococcal pharyngitis. [...] HUFFMAN PA-C On: 05/26/2016 02:30 PM Source: [facility] [id number] Document Id: [id number] [employer] TEND[employer] documented in this encounter Procedure Notes Gagan Tran C.M.A. - 05/22/2016 3:48 PM CST Rapid Strep A Screen POC Rapid Strep A Screen POC Entered On: 05/22/2016 15:48 [employer]ENDER Performed On: 05/22/2016 15:48 AUTOMATIC [employer] MACHINE TENDER by [facility] Rapid Strep A Screen POC Rapid Strep A Screen POC : Negative Internal Positive QC : Pass Internal Negative QC : Pass Rapid Strep Device Lot Number : [id number] Rapid Strep Device Expiration Date : 08/10/2017 CDT CHELSEA GAGAN Birch [facility] - 05/22/2016 15:48 AUTOMATIC [employer] MACHINE TENDER Source: [facility] POWERCHART Document Id: [id number] AUTOMATIC [employer] MAKING MACHINE TENDER!7 [employer]IC [employer] MACHINE TENDER documented in this encounter Miscellaneous Notes Miscellaneous - James Huffman P.A.-C. - 05/22/2016 3:56 PM CST Ambulatory Patient Summary [facility] Care - [address] [id number] Visit Information Name: KAROLINE HALEY [facility] Number: [id number] Current Date: 05/22/2016 15:56:00 [...] you dont have one. Go to [email or web address] and click on Create Your Account. Then, follow the directions to complete the online form. Youll be asked for your [facility] number which you can find at the top of this document. Your Goals/Additional instructions: Source: [facility] POWERCHART Document Id: [id number] MAT[employer] MACHINE TENDER Miscellaneous - James Huffman P.A.-C. - 05/22/2016 3:56 PM CST Ambulatory Discharge Medication List [facility] - [address] [phone] Visit Information Name: KAROLINE HALEY [facility] Number: [id number] Current Date: 05/22/2016 15:56:00 Attending Provider: JAMES HUFFMAN PA-C Primary Care Provider: BRITNEY BALDWIN MD KRISTINA KAROLINE HEREDIA has been given the following list of [...] Signed By: Signed On: Additional Information: Source: [facility] POWERCHART Document Id: [id number] [employer]INE TENDER Miscellaneous - Gagan Tran C.M.A. - 05/22/2016 3:32 PM CST Adult Kennel Assistant Intake/History Adult Kennel Assistant Intake/History Entered On: 05/22/2016 15:35 AUTOM[employer]ACHINE TENDER Performed On: 05/22/2016 15:32 AUTOMATIC [employer] MACHINE TENDER by [facility] Intake Chief Complaint : ST Onset of Symptoms : today AM Temperature Core : 36.8 DegC(Converted to: 98.2 DegF) Limb Alert Question : No Peripheral Pulse Rate : 112 /min (HI) Systolic Blood Pressure : 132 mmHg Diastolic Blood Pressure : 64 mmHg NIBP Mean : 87 mmHg [facility] - 05/22/2016 15:32 AUTOM[employer]IC [employer]ACHINE TENDER General Info Languages : Panamanian Is Patient Female and 13-50 no hysterectomy : No [facility] TRNA [facility] - 05/22/2016 15:32 AUTOM[employer]IC [employer]ACHINE TENDER Subjective Pain Symptoms : Yes [facility] - 05/22/2016 15:32 AUTOM[employer]IC [employer] MACHINE TENDER Pain Scale Pain Scale Verbal 0-10 : Open [facility] - 05/22/2016 15:32 AUTOM[employer]IC [employer] MACHINE TENDER Pain Pain Assessment Grid Pain 1 Location : Throat Laterality : Bilateral Time Pattern : Constant [facility]al [facility] - 05/22/2016 15:32 AUTOMATIC [employer] MACHINE TENDER Dependent Habits Exposure to Tobacco Smoke : Care provider denies smoking in home Smoking Status : Former smoker Tobacco 2A : Yes Tobacco Use/Currently Using : No Tobacco Use/Last 30 Days : No Tobacco Use/Last 12 months : No Tobacco Last Use/Year : 1969 [facility] - 05/22/2016 15:32 AUTOM[employer]IC [employer]ACHINE TENDER Caffeine Use Grid Caffeine Use : Current Type : Coffee, Soft drinks, Tea Frequency : Daily Amount : 1 cup TRAN, GAGAN Birch [facility] - 05/22/2016 15:32 AUTOMATIC [employer] MACHINE TENDER Source: [facility] POWERCHART Document Id: [id number] AUTOMATIC [employer] MACHINE TENDER!37 MATIC [employer] MA[employer] MACHINE TENDER documented in this encounter Plan of Treatment Not on filedocumented as of this encounter Procedures Procedure Name Priority Date/Time Associated Diagnosis Comme nts RAPID STREP A Routine 05/22/2016 3:48 PM Results for this SCREEN [employer] TENDER procedure are i n the results section. documented in this encounter Results Rapid Strep A Screen (05/22/2016 3:48 PM AUTOM[employer]IC [employer] MACHINE TENDER) [facility] gist Method Time Signature HXRapid Strep POWERCHART Confirmation HXPre Negative for POWERCHART Group A Strep by culture. HXFinal Negative for POWERCHART Group A Strep by culture. Specimen (Source) Anatomical Collection Method Collection Time Re ceived Time Location / / Volume Laterality Throat 05/22/2016 3:48 PM [employer]ACHINE TENDER James Huffman P.A.-C., VANDANA LAB MICROBIOLOGY - GENER AL ORDERABLES Performing Organization Address City/State/ZIP Code Phon e Number POWERCHART documented in this encounter Visit Diagnoses Not on filedocumented in this encounter
--- OUTSIDE RECORDS SUMMARY | 2022-03-21 10:22 | XMS_ITS | Encounter Summary ---
:1935 Author Organization [facility] Address [address] [place] [address] Care Team Providers Name Role Phone Unavailable Primary Care Provider Unavailable Encounter Details Date Type Department Care Team Description 06/18/2016 Hospital Encounter HX [facility] MAN Lydia Casey M.D. [address] [place] [address] [phone] (Wo rk) Social History Tobacco Use Types Packs/Day Years Used Date Smoking Tobacco: Former Sex Assigned at Date Recorded Not on file documented as of this encounter Last Filed Vital Signs Vital Sign Reading Time Taken Comments Blood Pressure 153/80 06/18/2016 12:09 AM HOME ENERGY CONSULTANT SUPERVISOR Pulse 83 06/18/2016 12:09 AM HOME ENERGY CONSULTANT SUPERVISOR Temperature - - Respiratory Rate 20 06/18/2016 12:09 AM HOME ENERGY CONSULTANT SUPERVISOR Oxygen Saturation - - Inhaled Oxygen Concentration - - Weight - - Height - - Body Mass Index - - documented in this encounter Discharge Summaries Rashmi Charles RXeniaN. - 06/18/2016 1:09 AM CST ED Discharge Instructions [address] [place] [address] Name: KAROLINE NUÑEZ Date of : 1935 12:00 AM Visit Date: 06/18/2016 12:03 AM [facility] Number: [id number] Address: [address] [place] [phone] Primary Care Provider: BRITNEY BALDWIN MD IMPORTANT: [facility] in [place] would like to thank you for allowing us to assistyou with your healthcare needs. The following includes patient education materials and information regarding your injury/illness. Diagnosis: Chronic Kidney Disease (CKD) Stage 3 GFR 30-59; Cystitis Acute Follow-Up Instructions: With: Address: When: BRITNEY BALDWIN [address] [place] [phone] [employer] ([employer] Within 3 - 5days Comments: Call for [...] in the labia (outer vaginal area) ?? [phone] [facility], [address] [place] [address], [place] [address]. All rights reserved. This information is not [...] if you dont have one. Go to [email or web address] and click on Create Your Account. Then, follow the directions to complete the online form. Youll be asked for your [facility] number which you can find at the [...] a ride home with a responsible democrat. I, KAROLINE NUÑEZ , or responsible democrat have received this [...] a ride home with a responsible democrat. I, KAROLINE NUÑEZ , or responsible democrat have received this information and my questions have been answered. I have discussed any challenges I see with this plan with the nurse or physician. Patient Signature or Responsible Libertarian/Relationship Date Time Provider Signature Date Time This document has images extracted. Please consider using dELiAs for all your patient education needs. Source: [facility] POWERCHART Document Id: [id number] ENERGY CONSULTANT SUPERVISOR Rashmi Charles, R.N. - 06/18/2016 1:09 AM CST ED Depart Summary [facility] Emergency Department Clinical Discharge Summary PERSON INFORMATION Name KAROLINE NUÑEZ Age 80 Years 1935 12:00 AM Sex Female Language Armenian PCP BRITNEY BALDWIN MD Marital Status Visit Id Visit Reason Pain passing urine; UTI Specialty Enc Type Emergency Med Service Emergency Medicine Referred by Track Group MAN ED Discharge 06/18/2016 1:00 AM Tracking Id [id number] Checkout 06/18/2016 1:00 AM Checkin 06/18/2016 12:03 AM Acuity 4 -Less Urgent Dispo Type * Discharged to Home or Self Care Arrival 06/18/2016 12:03 AM Reg Status JINNY Mitchell 00:57 Address: [address] [place] [phone] Comment: PROVIDER INFORMATION Provider Role Provider Contact Time RASHMI CHARLES CORRESPONDENCE SCHOOL TEACHER Nurse 06/18/16 00:19 JORDAN PAZ MD ED Provider 06/18/16 00:22 DIAGNOSIS Chronic Kidney Disease (CKD) Stage 3 GFR 30-59; Cystitis Acute Comment: PATIENT EDUCATION INFORMATION Instructions: BLADDER INFECTION, Female (Adult) Follow up: With: Address: When: BRITNEY BALDWIN [address] [place] [address] [phone] [facility] ([employer] Within 3 - 5days Comments: Call for follow up appointment. For recheck. Source: [facility] POWERCHART Document Id: [id number] ENERGY CONSULTANT SUPERVISOR documented in this encounter Medications at Time of Discharge Medication Sig Dispensed Refills Start Date End Date cholecalciferol (VITAMIN Take 1,000 Units by 0 D3) 1,000 Unit capsule mouth daily. geriatric Take 1 tablet by 0 01/30/2015 bypvrdev-tcfi-apiy tablet mouth daily. simvastatin (ZOCOR) 10 mg [...] ED Disposition Summary Entered On: 06/18/2016 1:07 HOME ENERGY CONSULTANT SUPERVISOR Performed On: 06/18/2016 1:00 HOME ENERGY CONSULTANT SUPERVISOR by RASHMI CHARLES RN ED Disposition Summary Present in Room During Exam/Procedure : Son Mode of Discharge : Ambulatory Transportation : Private vehicle Printed Discharge Instructions Given to Patient : Yes RASHMI CHARLES RN - 06/18/2016 1:07 HOME ENERGY CONSULTANT SUPERVISOR Source: [facility] Machine Talker Document Id: [id number] HOME ENERGY CONSULTANT SUPERVISOR!6 ENERGY CONSULTANT SUPERVISOR Rashmi Charles R.N. - 06/18/2016 1:00 AM CST ED Education ED Education Entered On: 06/18/2016 1:08 HOME ENERGY CONSULTANT SUPERVISOR Performed On: 06/18/2016 1:00 HOME ENERGY CONSULTANT SUPERVISOR by RASHMI CHARLES RN Education ED Education Grid Topics : Discharge instructions/Medication list Individuals Taught : Patient, Son Barriers to Learning : None evident Teaching Method : Explanation, Printed materials Teaching Evaluation : Able to teach back, Verbalizes understanding RASHMI CHARLES RN - 06/18/2016 1:08 HOME ENERGY CONSULTANT SUPERVISOR Source: [facility] Machine Talker Document Id: [id number] HOME ENERGY CONSULTANT SUPERVISOR!9 ENERGY CONSULTANT SUPERVISOR Rashmi Charles R.N. - 06/18/2016 12:50 AM CST ED Nurse Reassess ED Nurse Reassess Entered On: 06/18/2016 1:06 HOME ENERGY CONSULTANT SUPERVISOR Performed On: 06/18/2016 0:50 HOME ENERGY CONSULTANT SUPERVISOR by RASHMI CHARLES RN Pain Assessment Pain Symptoms : Yes RASHMI CHARLES RN - 06/18/2016 1:05 HOME ENERGY CONSULTANT SUPERVISOR Comfort Measures Comfort Measures Grid Meditation Facilitation : Yes RASHMI CHARLES RN - 06/18/2016 1:05 HOME ENERGY CONSULTANT SUPERVISOR Patient Response : discharge instructions discussed. first dose of cipro given. Comfort Measures Response : Comfort level unchanged RASHMI CHARLES RN - 06/18/2016 1:05 HOME ENERGY CONSULTANT SUPERVISOR [facility] Document Id: [id number] HOME ENERGY CONSULTANT SUPERVISOR!8 ENERGY CONSULTANT SUPERVISOR Jordan Paz M.D. - 06/18/2016 12:23 AM CST Pain passing urine Document Contains Addenda Addendum by JORDAN PAZ MD on June 18, 2016 0:59 HOME ENERGY CONSULTANT SUPERVISOR The urinalysis shows trace leuk esterase with [...] 12:59 AM Pain passing urine Patient: KAROLINE NUÑEZ Age: 80 years Sex: Female : 1935 Author: JORDAN PAZ MD Attachments: None Associated Diagnosis: Chronic Kidney Disease (CKD) Stage 3 GFR 30-59; Cystitis Acute Basic Information Time seen: Date & time 06/18/2016 00:23:00. History source: Patient, son. Arrival mode: Private vehicle, walking. History limitation: None. Additional information: Chief Complaint from Nursing Triage Note : Chief Complaint Description 06/18/2016 0:09 HOME ENERGY CONSULTANT SUPERVISOR Chief Complaint Description patient state that she [...] Depression NOS (ICD-9-CM 311). Surgical history: Cholecystectomy (05111891). Lumpectomy (6039524509). Appendectomy (399711244). Colonoscopy (547884374). Comments: 06/17/2016 10:03 - CHANO MO RN 2010 Mammogram ([id number]). Comments: 06/17/2016 10:03 - CHANO MO RN 2014. Family history: Myocardial infarction Son CVA - Cerebrovascular accident Brother Leukemia Mother . Social history: Alcohol use: Denies, Tobacco use: Denies, Occupation: Retired, Family/social situation: , lives alone. Physical Examination Vital Signs: Time: 06/18/2016 00:51:00, Vital Signs 06/18/2016 0:09 HOME ENERGY CONSULTANT SUPERVISOR Temperature Core 36.7 DegC Peripheral Pulse Rate 83 /min Respiratory Rate 20 /min SpO2 99 % Limb Alert Question No Systolic Blood Pressure 153 mmHg HI Diastolic Blood Pressure 80 mmHg Mean Arterial Pressure 104 mmHg BP Location Right upper , SpO2 06/18/2016 0:09 HOME ENERGY CONSULTANT SUPERVISOR SpO2 99 % . General: Alert, mild [...] if Indicated (Order Processing): Stat, 06/18/2016 0:24 HOME ENERGY CONSULTANT SUPERVISOR, Once, Urine, Clean Void (Midstream), Launch Orders Pharmacy: ciprofloxacin (Order Processing): 250 mg, PO, Once. Impression and Plan Diagnosis Chronic Kidney Disease (CKD) Stage 3 GFR 30-59 (Discharge, Emergency medicine, Nursing) Cystitis Acute (Discharge, Emergency medicine, Medical) Plan Condition: Stable. Disposition: Discharged: Time 06/18/2016 00:41:00, to home. Prescriptions: Prescription Nutrition Helper Pharmacy: ciprofloxacin 250 mg oral tablet (Prescribe): [...] Discharge ED Patient (Order Processing): 06/18/2016 0:44 HOME ENERGY CONSULTANT SUPERVISOR, Once. Electronically Signed By: JORDAN PAZ MD On: 06/18/2016 12:54 AM Modified by and Electronically Signed by: JORDAN PAZ MD On: 06/18/2016 12:54 AM Source: [facility] My Health DirectCHART Document Id: [id number]} ENERGY CONSULTANT SUPERVISOR Rashmi Charles R.N. - 06/18/2016 12:20 AM CST ED Nurse Reassess ED Nurse Reassess Entered On: 06/18/2016 1:07 HOME ENERGY CONSULTANT SUPERVISOR Performed On: 06/18/2016 0:20 HOME ENERGY CONSULTANT SUPERVISOR by RASHMI CHARLES RN Pain Assessment Pain Symptoms : Yes RASHMI CHARLES RN - 06/18/2016 1:06 HOME ENERGY CONSULTANT SUPERVISOR /OB Reassess Patient Stated Symptoms : Burning, Frequency Urine Description : Clear Urine Color : Yellow /OB Note : ua sent to lab RASHMI CHARLES RN - 06/18/2016 1:06 HOME ENERGY CONSULTANT SUPERVISOR Source: [facility] Machine Talker Document Id: [id number] HOME ENERGY CONSULTANT SUPERVISOR!8 ENERGY CONSULTANT SUPERVISOR Rashmi Charles R.N. - 06/18/2016 12:09 AM CST ED Primary Assessment Document Has Been Updated ED Primary Assessment Entered On: 06/18/2016 0:15 HOME ENERGY CONSULTANT SUPERVISOR Performed On: 06/18/2016 0:09 HOME ENERGY CONSULTANT SUPERVISOR by RASHMI CHARLES RN Reason For Visit (As Of: 06/18/2016 00:15:49 HOME ENERGY CONSULTANT SUPERVISOR) Problems(Active) Anemia Pers Hx (ICD-10-CM :Z86.2 ) Name of Problem: Anemia Pers Hx ; Recorder: CHANO MO RN; Confirmation: Confirmed ; Classification: Nursing ; Code: Z86.2 ; Contributor System: [employer]ast ; LastUpdated: 06/17/2016 9:51 HOME ENERGY CONSULTANT SUPERVISOR ; Life Cycle Date: 06/17/2016 ; Life Cycle Status: Active ; ResponsibleProvider: CHANO MO RN; Vocabulary: ICD-10-CM Arthritis Inflammatory (ICD-10-CM :M06.4 ) Name of Problem: Arthritis Inflammatory ; Recorder: CHANO OM RN; Confirmation: Confirmed ; Classification: Nursing ; Code: M06.4 ; Contributor System: PowerChart ; Last Updated: 06/17/2016 9:57 HOME ENERGY CONSULTANT SUPERVISOR ; Life Cycle Date: 06/17/2016 ; Life Cycle Status: Active ; Responsible Provider: CHANO MO RN; Vocabulary: ICD-10-CM Cerumen Impacted NOS (ICD-10-CM :H61.20 ) Name of Problem: Cerumen Impacted NOS ; Recorder: CHANO MO RN; Confirmation: Confirmed ; Classification: Nursing ; Code: H61.20 ; Contributor System: PowerChart ; Last Updated: 06/17/2016 9:56 HOME ENERGY CONSULTANT SUPERVISOR ; Life Cycle Date: 06/17/2016 ; Life Cycle Status: Active; Responsible Provider: CHANO MO RN; Vocabulary: ICD-10-CM Cervical Disc Disorder With Myelopathy (ICD-10-CM :M50.00 ) Name of Problem: Cervical Disc Disorder With Myelopathy ; Recorder: CHANO MO RN; Confirmation: Confirmed ; Classification: Nursing ; Code: M50.00 ; Contributor System: PowerChart ; Last Updated: 06/17/2016 9:49 HOME ENERGY CONSULTANT SUPERVISOR ; Life Cycle Date: 10/2016 ; Life Cycle Status: Active ; Responsible Provider: CHANO MO RN; Vocabulary: ICD-10-CM Chronic Kidney Disease (CKD) Stage 3 GFR 30-59 (ICD-10-CM :N18.3 ) Name of Problem: Chronic Kidney Disease (CKD) Stage 3 GFR 30-59 ; Recorder: CHANO MO RN; Confirmation: Confirmed ; Classification: Nursing ; Code: N18.3 ; Contributor System: PowerChart ; Last Updated: 06/17/2016 9:56 HOME ENERGY CONSULTANT SUPERVISOR ; Life Cycle Date: 06/17/2016 ; Life [...] System: PowerChart ; Last Updated: 06/17/2016 9:54 HOME ENERGY CONSULTANT SUPERVISOR ; Life Cycle Date: 06/17/2016 ; Life [...] System: PowerChart ; Last Updated: 06/17/2016 9:54 HOME ENERGY CONSULTANT SUPERVISOR ; Life Cycle Date: 06/17/2016 ; Life Cycle Status: Active ; Responsible Provider: CHANO MO RN; Vocabulary: ICD-10-CM Hyperlipidemia Mixed (ICD-10-CM :E78.2 ) Name of Problem: Hyperlipidemia Mixed ; Recorder: CHANO MO RN; Confirmation: Confirmed ; Classification: Nursing ; Code: E78.2 ; Contributor System: PowerChart ; Last Updated: 06/17/2016 9:56 HOME ENERGY CONSULTANT SUPERVISOR ; Life Cycle Date: 06/17/2016 ; Life [...] System: PowerChart ; Last Updated: 06/17/2016 9:50 HOME ENERGY CONSULTANT SUPERVISOR ; Life Cycle Date: 06/17/2016 ; Life Cycle Status: Active ; Responsible Provider: CHANO MO RN; Vocabulary: ICD-10-CM Osteoporosis NOS (ICD-10-CM :M81.0 ) Name of Problem: Osteoporosis NOS ; Recorder: CHANO MO RN; Confirmation: Confirmed ; Classification: Nursing ; Code: M81.0 ; Contributor System: PowerChart ; Last Updated: 06/17/2016 9:51 HOME ENERGY CONSULTANT SUPERVISOR ; Life Cycle Date: 06/17/2016 ; Life Cycle Status: Active ; Responsible Provider: CHANO MO RN; Vocabulary: ICD-10-CM Pain Back NOS (ICD-10-CM :M54.9 ) Name of Problem: Pain Back NOS ; Recorder: CHANO MO RN; Confirmation: Confirmed ; Classification: Nursing ; Code: M54.9 ; Contributor System: PowerChart ; Last Updated: 06/17/2016 9:55 HOME ENERGY CONSULTANT SUPERVISOR ; Life Cycle Date: 06/17/2016 ; Life Cycle Status: Active ; Responsible Provider: CHANO MO RN; Vocabulary: ICD-10-CM Pain Musculoskeletal NOS (ICD-10-CM :M79.1 ) Name of Problem: Pain Musculoskeletal NOS ; Recorder: CHANO MO RN; Confirmation: Confirmed ; Classification: Nursing ; Code: M79.1 ; Contributor System: PowerChart ; Last Updated: 06/17/2016 9:54 HOME ENERGY CONSULTANT SUPERVISOR ; Life Cycle Date: 06/17/2016 ; Life Cycle Status: Active ; Responsible Provider: CHANO MO RN; Vocabulary: ICD-10-CM Rash NOS (ICD-10-CM :R21 ) Name of Problem: Rash NOS ; Recorder: CHANO MO RN; Confirmation: Confirmed ; Classification: Nursing ; Code: R21 ; Contributor System: PowerChart ; Last Updated: 06/17/2016 9:57 HOME ENERGY CONSULTANT SUPERVISOR ; Life Cycle Date: 06/17/2016 ; Life Cycle Status: Active ; Responsible Provider: CHANO MO RN; Vocabulary: ICD-10-CM 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 ) Name of Problem: Regurgitation Tricuspid NOS ; Recorder: JORDAN PAZ MD; Confirmation: Confirmed ; Classification: Medical ; Code: 397.0 ; Contributor System: BlueTalonChart ; Last Updated: 10/19/2014 21:38 CDT ; Life Cycle Date: 10/19/2014 ; Life CycleStatus: Active ; Vocabulary: ICD-9-CM Sclerosis Aortic Valve (ICD-10-CM :I35.8 ) Name of Problem: Sclerosis Aortic Valve ; Recorder: CHANO MO RN; Confirmation: Confirmed ; Classification: Nursing ; Code: I35.8 ; Contributor System: PowerChart ; Last Updated: 06/17/2016 9:52 HOME ENERGY CONSULTANT SUPERVISOR ; Life Cycle Date: 06/17/2016 ; Life Cycle Status: Active ; Responsible Provider: CHANO MO RN; Vocabulary: ICD-10-CM Venous Disease (ICD-10-CM :I87.9 ) Name of Problem: Venous Disease ; Recorder: CHANO MO RN; Confirmation: Confirmed ; Classification: Nursing ; Code: I87.9 ; Contributor System: PowerChart ; LastUpdated: 06/17/2016 9:53 HOME ENERGY CONSULTANT SUPERVISOR ; Life Cycle Date: 06/17/2016 ; Life Cycle Status: Active ; ResponsibleProvider: CHANO MO RN; Vocabulary: ICD-10-CM Diagnoses(Active) Pain passing urine Date: 06/18/2016 ; Diagnosis Type: Reason For Visit ; Confirmation: Complaint of ; Clinical Dx: Pain passing urine ; Classification: Medical ; Clinical Service: Emergency medicine ; Code: PNED ; Probability: 0 ; Diagnosis Code: [id number] Triage Chief Complaint Description : patient state that she thinks she has a uti. is going more frequently and is having pain. states she just got off of amoxicillin on thursday for a sinus infection. Information Given By : Patient Present in Room During Exam/Procedure : Son Mode of Arrival ED : Private vehicle Track : Medical Languages : Armenian Vital Signs Assessed : Yes Treatments Prior to Arrival : None Is Patient Female and 13-50 no hysterectomy : No MELVINMERLYNERIC Vogel 06/18/2016 0:09 HOME ENERGY CONSULTANT SUPERVISOR Vital Signs Temperature Core : 36.7 DegC(Converted [...] Oxygen Therapy : Room air RASHMI CHARLES Jaspreet 06/18/2016 0:09 HOME ENERGY CONSULTANT SUPERVISOR Pain Assessment Pain Symptoms : Yes MELVIN RASHMI Vogel 06/18/2016 0:09 HOME ENERGY CONSULTANT SUPERVISOR Pain Scale Pain Scale Verbal 0-10 : Open RASHMI CHARLES Jaspreet 06/18/2016 0:09 HOME ENERGY CONSULTANT SUPERVISOR Pain Pain Assessment Grid Pain 1 Location : Vagina Laterality : Bilateral Intensity : 9 Time Pattern : Acute, Constant, Intermittent Onset : Gradual Quality : Burning Aggravating Factors : Other: voiding RASHMI CHARLES Jaspreet RN 06/18/2016 0:09 HOME ENERGY CONSULTANT SUPERVISOR JOANA JOANA Level 1 : No JOANA Level 2 : No JOANA Level 3 : One SARAIRASHMI KLEIN Jaspreet 06/18/2016 0:09 HOME ENERGY CONSULTANT SUPERVISOR DCP GENERIC CODE Tracking Acuity : 4 -Less Urgent Tracking Group : MAQN ED SARAIRASHMI KLEIN Jaspreet 06/18/2016 0:09 HOME ENERGY CONSULTANT SUPERVISOR Allergy Latex Reaction : No Latex Hives/Itch : No Latex Congestion/Eye Irr/Breathing : No Latex Symptom Progression : No Latex Previous Test : No RASHMI CHARLES 06/18/2016 0:09 HOME ENERGY CONSULTANT SUPERVISOR (As Of: 06/18/2016 00:15:50 HOME ENERGY CONSULTANT SUPERVISOR) Allergies (Active) Septra Estimated Onset Date: Unspecified ; Created By: STEFANIE BALDWIN MD; Reaction Status: Active ; Category: Drug ; Substance: Septra ; Type: Allergy ; Updated By: STEFANIE BALDWIN MD; Reviewed Date: 06/18/2016 0:11 HOME ENERGY CONSULTANT SUPERVISOR zinc acetate containing compounds Estimated Onset Date: Unspecified ; Reactions: rash ; Created By: GAGAN TRAN CMA; Reaction Status: Active ; Category: Drug ; Substance: zinc acetate containing compounds ; Type: Allergy ; Updated By: GAGAN TRAN CMA; Reviewed Date: 06/18/2016 0:11 HOME ENERGY CONSULTANT SUPERVISOR ID Screen Drug Resistant Organism : No RASHMI CHARLES RN - 06/18/2016 0:09 HOME ENERGY CONSULTANT SUPERVISOR Immunizations Immunizations Current : Yes RASHMI CHARLES RN - 06/18/2016 0:09 HOME ENERGY CONSULTANT SUPERVISOR Respiratory Airway : Patent Respirations : Unlabored Respiratory Pattern : Regular RASHMI CHARLES RN - 06/18/2016 0:09 HOME ENERGY CONSULTANT SUPERVISOR Cardiovascular Heart Rhythm : Regular Skin Color : [place] Skin Description : Rash Skin Temperature : Warm RASHMI CHARLES RN - 06/18/2016 0:09 HOME ENERGY CONSULTANT SUPERVISOR Neurological Last Well Time Known : Not applicable Level of Consciousness : Alert Orientation : Oriented x 3 Characteristics of Speech : Appropriate for age RASHMI CHARLES RN - 06/18/2016 0:09 HOME ENERGY CONSULTANT SUPERVISOR ED Psychosocial Affect/Behavior : Calm, Cooperative Domestic Abuse Concerns : None Behavioral Health Screen/Safety Assmt : No RASHMI CHARLES RN - 06/18/2016 0:09 HOME ENERGY CONSULTANT SUPERVISOR Gastrointestinal Nutrition ED : Adequate RASHMI CHARLES RN - 06/18/2016 0:09 HOME ENERGY CONSULTANT SUPERVISOR Integumentary Integumentary Patient Stated Symptoms : Rash Skin Turgor : Elastic Integ Note : red rash around mouth, on chin and upper lip. red and raw. RASHMI CHARLES RN - 06/18/2016 0:09 HOME ENERGY CONSULTANT SUPERVISOR Musculoskeletal Fall Prevention Education Provided : RASHMI RYAN RN - 06/18/2016 0:09 HOME ENERGY CONSULTANT SUPERVISOR Social Habits Exposure to Tobacco Smoke : Care provider denies smoking in home Smoking Status : Never smoker Tobacco 2A : No Tobacco Use/Currently Using : No Tobacco Use/Last 30 Days : No Tobacco Use/Last 12 months : No Tobacco Last Use/Year : 1968 RASHMI CHARLES RN - 06/18/2016 0:09 HOME ENERGY CONSULTANT SUPERVISOR Source: [facility] POWERCHART Document Id: [id number] HOME ENERGY CONSULTANT SUPERVISOR!88 ENERGY CONSULTANT SUPERVISOR documented in this encounter Miscellaneous Notes Miscellaneous - Rashmi Charles RXeniaN. - 06/18/2016 1:00 AM CST Valuables/Belongings Valuables/Belongings Entered On: 06/18/2016 1:08 HOME ENERGY CONSULTANT SUPERVISOR Performed On: 06/18/2016 1:00 HOME ENERGY CONSULTANT SUPERVISOR by RASHMI CHARLES RN Valuables/Belongings Room Orientation/Facility Policy Reviewed : Yes Belongings Sent Home With : patient Home Medication Disposition : None brought in with patient RASHMI CHARLES RN - 06/18/2016 1:08 HOME ENERGY CONSULTANT SUPERVISOR [facility] Document Id: [id number] HOME ENERGY CONSULTANT SUPERVISOR!5 ENERGY CONSULTANT SUPERVISOR Miscellaneous - Conversion, Historical Provider Ser - 06/18/2016 1:00 AM HOME ENERGY CONSULTANT SUPERVISOR Coding Summary-Paper Based CODING DATE: 06/26/2016 FINAL [facility] STATUS: * Discharged to Home [...] VERA Date Saved: 06/26/2016 12:47 pm Source: [place] Document Id: [id number] Miscellaneous - Rashmi Charles R.N. - 06/18/2016 12:03 AM CST Facility Charge Ticket 2.0 11.0 DX Facility Charge Ticket 2.0 11.0 DX Entered On: 06/18/2016 1:08 HOME ENERGY CONSULTANT SUPERVISOR Performed On: 06/18/2016 0:03 HOME ENERGY CONSULTANT SUPERVISOR by RASMHI CHARLES RN Facility Charge Ticket 2.0 11.0 [...] Nursing Notes ED Primary Assessment,06/18/16 00:09,RASHMI CHARLES CORRESPONDENCE SCHOOL TEACHER Nurse Reassess,06/18/16 00:50,RASHMI CHARLES CORRESPONDENCE SCHOOL TEACHER Nurse Reassess,06/18/16 00:20,RASHMI CHARLES RN [facility] Nursing Assessment : Triage and 1-2 nursing assessments [facility] Disposition : Discharge Disposition RTF : discharge [facility] Total Points with Diagnosis Control : 6 [facility] Visit Level : 90879 Level 3 Treatments Prior to Arrival : None RASHMI CHARLES RN - 06/18/2016 1:08 HOME ENERGY CONSULTANT SUPERVISOR [facility] Document Id: [id number] HOME ENERGY CONSULTANT SUPERVISOR!19 ENERGY CONSULTANT SUPERVISOR documented in this encounter Plan of Treatment Not on filedocumented as of this encounter Procedures Procedure Name Priority Date/Time Associated Diagnosis Comme nts BACTERIAL CULTURE, Routine 06/18/2016 12:41 AM Re sults for this AEROBIC, URINE HOME ENERGY CONSULTANT SUPERVISOR procedure are in the results section. URINALYSIS, Routine 06/18/2016 12:21 AM Results for this MIDSTREAM, WITH HOME ENERGY CONSULTANT SUPERVISOR procedure ar e in CULTURE IF the results INDICATED section. documented in this encounter Results Bacterial Culture, Aerobic, Urine (06/18/2016 12:41 AM HOME ENERGY CONSULTANT SUPERVISOR) Analysis Performed At Patho logist Time Signature Bacterial POWERCHART Culture, Aerobic, Urine HXFinal No growth POWERCHART Specimen Anatomical Collection Method Collection Time Receive d Time (Source) Location / / Volume Laterality Urine, First 06/18/2016 12:41 06/18/2016 Voided AM HOME ENERGY CONSULTANT SUPERVISOR 12:41 AM HOME ENERGY CONSULTANT SUPERVISOR Jordan Paz M.D. LAB MICROBIOLOGY - GENERAL O RDERABLES Performing Organization Address City/State/ZIP Code Phon e Number POWERCHART (ABNORMAL) Urinalysis, Midstream, with culture if indicated (06/18/2016 12:21 AM HOME ENERGY CONSULTANT SUPERVISOR) [employer] gist Method Time Signature HXUr Color Yellow Colorless POWERCHART Clarity Clear Clear POWERCHART Glucose Negative Negative MGDL POWERCHART HXBILIRUBIN Negative Negative POWERCHART Ketones, QL(U) Negative Negative MGDL POWERCHART Specific 1.025 POWERCHART [place], POCT, U Comment: Reference Range Specific [place]: 1.000-1.035 HXBLOOD Trace (A) Negative POWERCHART pH, [...] Laterality Urine, First 06/18/2016 12:21 Voided AM HOME ENERGY CONSULTANT SUPERVISOR Jordan Paz M.D. LAB URINE ORDERABLES Performing Organization Address City/State/ZIP Code Phon e Number POWERCHART documented in this encounter Visit Diagnoses Not on filedocumented in this encounter
--- OUTSIDE RECORDS SUMMARY | 2022-03-21 10:22 | XMS_ITS | Encounter Summary ---
:1935 Author Organization [facility] Address [address] [place] [address] Care Team Providers Name Role Phone Unavailable Primary Care Provider Unavailable Encounter Details Date Type Department Care Team Description 08/20/2015 Hospital Encounter HX [facility] MAN ED Roxanne Orellana D .O. Social [...] 08/20/2015 8:37 PM CDT ED Discharge Instructions [address] [place] [address] Name: KAROLINE HALEY Date of : 1935 12:00 AM Visit Date: 08/20/2015 6:22 PM [facility] Number: [id number] Address: [address] [place] [phone] Primary Care Provider: BRITNEY BALDWIN MD IMPORTANT: [facility] in [place] would like to thank you for allowing us to assistyou with your healthcare needs. The following includes patient education materials and information regarding your injury/illness. Diagnosis: Bleeding Rectal Follow-Up Instructions: With: Address: When: BRITNEY BALDWIN [address] [place] [id number] [facility] (1) Within 3 - [...] if you dont have one. Go to [email or web address] and click on Create Your Account. Then, follow the directions to complete the online form. Youll be asked for your [facility] number which you can find at [...] document has images extracted. Please consider using [employer] for all your patient education needs. Source: [employer] Document Id: [id number] Elsi Mantilla, VICKIE, C.N.P., M.S.N. - 08/20/2015 8:37 PM CDT ED Depart Summary [facility] Emergency Department Clinical Discharge Summary PERSON INFORMATION Name KAROLINE HALEY Age 79 Years 1935 12:00 AM Sex Female Language Uzbek PCP BRITNEY BALDWIN MD Marital Status Visit Id Visit Reason Rectal bleed; BLEEDING FROM RECTUM Specialty Enc Type Emergency Med Service Emergency Medicine Referred by Track Group MAQN ED Discharge 08/20/2015 8:27 PM Tracking Id [id number] Checkout 08/20/2015 8:27 PM Checkin 08/20/2015 6:22 PM Acuity 4 -Less Urgent Dispo Type * Discharged to Home or Self Care Arrival 08/20/2015 6:22 PM Reg Status LOS 000 02:05 Address: [address] [place] [phone] Comment: PROVIDER INFORMATION Provider Role Provider Contact Time ELSI MANTILLA OD GRINDER OPERATOR Nurse 08/20/15 18:33 JORDAN HOLBROOK MD ED Provider 08/20/15 19:13 ROXANNE ORELLANA DO ED Provider 08/20/15 19:40 DIAGNOSIS Bleeding Rectal Comment: PATIENT EDUCATION INFORMATION Instructions: ANAL FISSURE (Adult) (Custom) Follow up: With: Address: When: BRITNEY BALDWIN [address] [place] [id number] [facility] () Within 3 - [...] further concerns, return to the ER [facility] Document Id: [id number] documented in this encounter Medications at Time of Discharge Medication Sig Dispensed Refills Start Date End Date cholecalciferol (VITAMIN Take 1,000 Units 0 11/14 D3) 1,000 Unit capsule by mouth daily. geriatric Take 1 tablet by 0 01/30/2015 giaydsko-cpje-sdqc tablet mouth daily. simvastatin (ZOCOR) 10 mg Take 10 mg by 0 015 tablet mouth at bedtime. raNITIdine (ZANTAC) 150 mg 150 mg. 0 5 07/23/2020 tablet documented as of this encounter ED Notes Elsi Mantilla APRN, C.N.P., M.S.N. - 08/20/2015 8:27 PM CDT ED Disposition Summary ED Disposition Summary Entered On: 08/20/2015 20:34 CDT Performed On: 08/20/2015 20:27 CDT by ELSI MANTILLA OD GRINDER OPERATOR Disposition Summary Present in Room During Exam/Procedure : Daughter Mode of Discharge : Ambulatory Transportation : Private vehicle Printed Discharge Instructions Given to Patient : Yes Patient Status at Discharge from ED : Unchanged ELSI MANTILLA RN - 08/20/2015 20:34 CDT Source: [employer] Document Id: [id number] CDT!7 Elsi Mantilla APRN C.N.PXenia, M.S.N. - [...] MANTILLA RN - 08/20/2015 20:34 CDT Source: [employer] Document Id: [id number] CDT!9 Elsi Mantilla, [employer], C.N.P., M.S.N. - 08/20/2015 8:15 PM CDT [...] 20:31 CDT Marine Coma Eye Opening Response Cyclone : Spontaneously Best Verbal Response Cyclone : Oriented Best Motor Response Cyclone : Obeys simple commands Marine Coma Score : 15 ELSI MANTILLA RN - 08/20/2015 20:31 CDT GI Reassess GI Patient Stated Symptoms : Stools, black/bloody ELSI MANTILLA RN - 08/20/2015 20:31 CDT /OB Reassess Patient Stated Symptoms : None ELSI MANTILLA RN - 08/20/2015 20:31 CDT Source: [employer] Document Id: [id number] CDT!36 Roxanne Orellana D.O. - 08/20/2015 8:11 [...] Absolute 2.57 10(9)/L Lymph Absolute 2.24 x10(9)/L [place] Absolute 0.77 x10(9)/L Eos Absolute 0.20 x10(9)/L [...] doctor for a recheck--she may need GI and/orOB/HOME HEALTH REGISTERED NURSE referral for further testing. Return precautions explained [...] ORELLANA DO On: 08/21/2015 12:10 AM Source: [employer] Document Id: [id number]} Elsi Mantilla APRN, C.N.P., M.S.N. - 08/20/2015 [...] ELSI MANTILLA RN - 08/20/2015 19:23 CDT Cyclone Coma Eye Opening Response Cyclone : Spontaneously Best Verbal Response Marine : Oriented Best Motor Response Marine : Obeys simple commands Cyclone Coma Score : 15 ELSI MANTILLA RN [...] MANTILLA RN - 08/20/2015 19:23 CDT Source: [employer] Document Id: [id number] CDT!40 Jordan Holbrook M.D. - 08/20/2015 7:14 [...] [facility] POWERCHART Document Id: [id number]} Elsi Mantilla APRN, C.N.P., M.S.N. - 08/20/2015 [...] Classification: Medical; Code: 585.4 ; Contributor System: Nourish ; Last Updated: 10/19/2014 21:38 CDT ; Life Cycle Date: 10/19/2014 ; Life Cycle Status: Active ; Vocabulary: ICD-9-CM Depression NOS (ICD-9-CM :311 ) Name of Problem: Depression NOS ; Recorder: JORDAN HOLBROOK MD; Confirmation: Confirmed ; Classification: Medical ; Code: 311 ; Contributor System: [employer] ; Last Updated: 10/19/2014 21:39 CDT ; Life Cycle Date: 10/19/2014 ; Life Cycle Status: Active ; Vocabulary: ICD-9-CM Disease Gastroesophageal Reflux (GERD JAMEY) (ICD-9-CM :530.81 ) Name of Problem: Disease Gastroesophageal Reflux (GERD JAMEY) ; Recorder: JORDAN HOLBROOK MD; Confirmation: Confirmed ; Classification: Medical ; Code: 530.81 ; Contributor System: [employer] ; Last Updated: 10/19/2014 21:37 CDT ; [...] Code: PNED ;Probability: 0 ; Diagnosis Code: [id number] Triage Chief Complaint Description : Patient reports [...] Private vehicle Track : Medical Languages : Uzbek Vital Signs Assessed : Yes GCS Assessed [...] ELSI MANTILLA RN - 08/20/2015 18:26 CDT Cyclone Coma Eye Opening Response Cyclone : Spontaneously Best Verbal Response Cyclone : Oriented Best Motor Response Cyclone : Obeys simple commands Marine Coma Score : 15 ELSI MANTILLA - 08/20/2015 18:26 CDT Pain Assessment Pain [...] Onset Date: Unspecified ; Created By: STEFANIE ABLDWIN MD; Reaction Status: Active ; Category: Drug [...] Heart Rhythm : Regular Skin Color : [place] Skin Description : Normal Skin Temperature : [...] No Tobacco Use/Last 12 months : No ELIS MANTILLA RN - 08/20/2015 18:26 CDT Source: [employer] Document Id: [id number] CDT!91 documented in this encounter Miscellaneous Notes Miscellaneous - Elsi Mantilla, VICKIE, C.N.P., M.S.N. - 08/20/2015 8:27 PM CDT Valuables/Belongings Valuables/Belongings Entered On: 08/20/2015 20:35 CDT Performed On: 08/20/2015 20:27 CDT by ELSI MANTILLA RN Valuables/Belongings Belongings Sent Home With : All belongings sent with patient Home Medication Disposition : None brought in with patient ELSI MANTILLA RN - 08/20/2015 20:35 CDT Source: [employer] Document Id: [id number] CDT!4 Miscellaneous - Conversion, Historical Provider Ser - 08/20/2015 8:27 PM CDT Coding Summary-Paper Based CODING DATE: 08/27/2015 FINAL [facility] STATUS: * Discharged to Home or [...] VERA Date Saved: 08/27/2015 07:52 am Source: [employer] Document Id: [id number] Miscellaneous - Elsi Mantilla, VICKIE, C.N.P., M.S.N. [...] Nursing Notes ED Primary Assessment,08/20/15 18:26,ELSI MANTILLA OD GRINDER OPERATOR Nurse Reassess,08/20/15 20:15,ELSI MANTILLA OD GRINDER OPERATOR Nurse Reassess,08/20/15 19:15,ELSI MANTILLA RN [facility] Nursing Assessment : Triage and 1-2 nursing assessments [facility] Disposition : Discharge Disposition RTF : discharge [facility]x Total Points with Diagnosis Control : 6 [place]x Visit Level : 12719 Level 3 Treatments Prior to Arrival : None ELSI MANTILLA RN - 08/20/2015 20:36 CDT Source: [facility] [employer] Document Id: [id number] CDT!19 documented in this encounter Plan of [...] Hemmoccult, POCT (nursing) (08/20/2015 8:00 PM CDT) [facility] Method Time Signature HXOccult Bld Positive (A) Negative POWERCHART Stl I Specimen (Source) Anatomical Collection Method Collection Time Re ceived Time Location / / Volume Laterality Stool 08/20/2015 8:00 PM CDT Roxanne Orellana D.O. LAB POCT ORDERABLES-MANUAL Performing Organization Address City/[facility]/ZIP Code Phon e Number POWERCHART Automated [...] M.D. LAB BLOOD ADD-ON Performing Organization Address [facility] Phon e Number POWERCHART CBC with Differential (08/20/2015 7:22 PM CDT) athologist Signature Leukocytes 5.8 3.5 - 10.5 POWERCHART X109L Erythrocytes 4.25 3.90 - POWERCHART 5.03 [id number] Hemoglobin 12.5 12.0 - POWERCHART 15.5 GDL [...] M.D. LAB BLOOD ADD-ON Performing Organization Address City/[facility] Phon e Number POWERCHART Urinalysis, Midstream, with culture if indicated (08/20/2015 7:10 PM CDT) [facility] gist Method Time Signature HXUr Color Yellow Colorless POWERCHART Clarity Clear Clear POWERCHART Glucose Negative Negative MGDL POWERCHART HXBILIRUBIN Negative Negative POWERCHART Ketones, QL(U) Negative Negative MGDL POWERCHART Specific 1.015 POWERCHART Velma, POCT, U Comment: Reference Range Specific Velma: 1.000-1.035 HXBLOOD Negative Negative POWERCHART pH, POCT, [...]
--- OUTSIDE RECORDS SUMMARY | 2022-03-21 10:22 | XMS_ITS | Encounter Summary ---
:1935 Author Organization [facility] Address [address] [place] [address] Care Team Providers Name Role Phone Unavailable Primary Care Provider Unavailable Encounter Details Date Type Department Care Team Description 10/24/2014 - Hospital Encounter [facility] Jose Daniel Baldwin, 10/29/2014 Kelechi Social History Tobacco Use Types [...] 10/29/2014 10:09 AM CDT Hospital Discharge Instructions [facility] [address] [place] [address] Patient Discharge Instructions Name: KAROLINE NUÑEZ Current Date: 10/29/2014 10:09:01 : 1935 12:00 AM [facility] Number: [id number] Patient Address: [address] [place] [phone] Patient Primary Care Provider: Name: BRITNEY BALDWIN MD Discharge Diagnosis: [facility] in [place] would like to thank you for allowing [...] appointment on Thursday morning. Dr. [place] in [place]. Within As Soon As Possible Comments: With: Address: When: JOSE DANIEL BALDWIN [address] [place] [id number] Business (1) In 9 days 11/06/2014 Comments: Call for follow up appointment [phone] Dr. Ward Discharge Diet Diet Type: Other [...] a day New Routed to [facility] [address] [place] [address] aspirin (aspirin 81 mg oral delayed release tablet) 1 Tablet(s), Oral, once a day cholecalciferol (Vitamin D3 1000 intl units oral tablet) 1 Tablet(s), Oral, once a day ciprofloxacin (Cipro 500 mg oral tablet) 1 Tablet(s), Oral, two times a day x 7 day(s) [facility] [address] [place], [place] [id number] ferrous gluconate (ferrous gluconate 325 mg (36 mg elemental iron) oral tablet) 1 Tablet(s), Oral, two times a day This is a CHANGE Routed to [facility] [address] [place] [address] multivitamin with minerals (Centrum Silver Women's oral tablet) orphenadrine (orphenadrine 100 mg oral tablet, extended release) 1 Tablet(s), Oral, as needed raloxifene (raloxifene 60 mg oral tablet) 1 Tablet(s), Oral, once a day ranitidine (ranitidine 150 mg oral tablet) 1 Tablet(s), Oral, once a day (at bedtime) New Routed to [facility] [address] [place] [address] saccharomyces boulardii lyo (saccharomyces boulardii lyo 250 mg oral capsule) 1 cap, Oral, two timesa day simvastatin (simvastatin 10 mg oral tablet) 1 Tablet(s), Oral, once a day (at bedtime) [facility] [address] [facility] [address] traZODone (traZODone 50 mg oral [...] emergency. Comment: Electronically Signed By: JOSE DANIEL BALDWIN MD Signed On:28-OCT-2014 14:21:02 Your Upcoming Appointments [...] if you dont have one. Go to [email or web address] and click on Create Your Account. Then, follow the directions to complete the online form. Youll be asked for your [facility] number which you can find at the [...] how most CAPD patients receive it. ?? 1344-1245 [facility], [address] [place] [address], [place] [address]. All rights reserved. This information is not [...] or passing red or black-colored stool ?? [place] [address]. All rights reserved. This information is not [...] also include oxygen and intravenous fluids. ?? [place] [address]. All rights reserved. This information is not [...] in the labia (outer vaginal area) ?? 2896-7895 [facility], [address] [place] [address], [place] [address]. All rights reserved. This information is not [...] Extreme drowsiness, confusion, dizziness or fainting ?? 6080-2301 [facility], [address] [place] [address], [place] [address]. All rights reserved. This information is not [...] be at increased risk if you are -Faroese, , ,, or . Signs and symptoms [...] any illicit drugs you may use. ?? [phone] [facility], [address] [place] [address], [place] [address]. All rights reserved. This information is not [...] beer, cola drinks, and dairy products. ?? [phone] [facility], [address] [place] [address], [place] [address]. All rights reserved. This information is not intended as a substitute for professional medical care. Always follow your healthcare professional's instructions. This document has images extracted. Please consider using [employer] for all your patient education needs. Source: [facility] POWERCHART Document Id: [id number] Conversion, Historical Provider Ser - 10/29/2014 10:09 AM CDT Hospital Discharge Medication List [place] [address] [place] [address] Discharge Medication List Name: KAROLINE NUÑEZ Current Date: 10/29/2014 10:08:59 : 1935 12:00 AM [facility] Number: [id number] Patient Address: [address] [place] [phone] Patient Primary Care Provider: Name: BRITNEY BALDWIN MD Discharge Diagnosis: [facility] in [place] would like to thank you for allowing us to assist you with your healthcare needs. The following includes patient education materials and information regarding your injury/illness. Medications Medication/Strength How to Take Indications/Special Instructions/Comments/Notes for Patient Medication Changes/Routing ascorbic acid (ascorbic acid 500 mg oral tablet) 1 Tablet(s), Oral, two times a day New Routed to [facility] [address] [place] [address] aspirin (aspirin 81 mg oral delayed release tablet) 1 Tablet(s), Oral, once a day cholecalciferol (Vitamin D3 1000 intl units oral tablet) 1 Tablet(s), Oral, once a day ciprofloxacin (Cipro 500 mg oral tablet) 1 Tablet(s), Oral, two times a day x 7 day(s) [facility] [address] [place] [address] ferrous gluconate (ferrous gluconate 325 mg (36 mg elemental iron) oral tablet) 1 Tablet(s), Oral, two times a day This is a CHANGE Routed to [facility] [address] [place] [address] multivitamin with minerals (Centrum Silver Women's oral tablet) orphenadrine (orphenadrine 100 mg oral tablet, extended release) 1 Tablet(s), Oral, as needed raloxifene (raloxifene 60 mg oral tablet) 1 Tablet(s), Oral, once a day ranitidine (ranitidine 150 mg oral tablet) 1 Tablet(s), Oral, once a day (at bedtime) New Routed to [facility] [address] [place] [address] saccharomyces boulardii lyo (saccharomyces boulardii lyo 250 mg oral capsule) 1 cap, Oral, two timesa day simvastatin (simvastatin 10 mg oral tablet) 1 Tablet(s), Oral, once a day (at bedtime) Routed to [facility] [address] [place] [address] traZODone (traZODone 50 mg oral [...] emergency. Comment: Electronically Signed By: JOSE DANIEL BALDWIN MD Signed On:28-OCT-2014 14:21:02 Source: [facility] [employer] Document Id: [id number] Conversion, Historical Provider Ser - 10/29/2014 8:55 [...] RAMIREZ RN - 10/29/2014 9:56 CDT [facility] Document Id: [id number] CDT!15 Gume Cooley, RXeniaN. - 10/29/2014 8:01 [...] : None brought in with patient ALFONZO LEGUME CONNORS RN - 10/29/2014 8:01 CDT Source: [facility] POWERCHART Document Id: [id number] CDT!20 Jose Daniel Baldwin M.D. - 10/29/2014 12:00 AM CDT [id number] REVISION HISTORY 11/02/2014 at 8:02 am - -- Modification: Incomplete isabela resolved per Dr. Jose Daniel Baldwin () DATE OF ADMISSION: October 24, 2014 [...] a consult with Nephrology, Dr. [place] at [facility] in [place], [place]. The patient did have a chest [...] PLAN: Follow up with Dr. Jose Daniel Baldwin in 9 days at [facility]. The patient is to call the [...] RECORDS: IDr. Jose Daniel, . Jose Daniel Baldwin M.D./pos Electronically Signed By: JOSE DANIEL BALDWIN MD On: 10/30/2014 04:17 PM Jose Daniel Baldwin M.D./dw Electronically Signed By: JOSE DANIEL BALDWIN MD On: 10/30/2014 04:17 PM Co-Signed By: JOSE DANIEL BALDWIN MD On: 11/02/2014 05:12 PM Source: [facility] [employer]BEYNON[employer]SYS Document Id: [id number] documented in this encounter Medications at Time of Discharge Medication Sig Dispensed Refills Start Date End Date simvastatin (ZOCOR) 10 mg Take 10 mg by mouth 0 0 10/28/2014 tablet at bedtime. raNITIdine (ZANTAC) 150 mg 150 mg. 0 5 07/23/2020 tablet documented as of this encounter Progress Notes Jose Daniel Baldwin M.D. - 10/28/2014 12:00 AM CDT [id number] ATTENDING PHYSICIAN: Dr. Jose Daniel Baldwin. ALLERGIES: SEPTRA. ZINC. MEDICATION LIST: Sodium chloride [...] with primary care physician Dr. Jose Daniel Baldwin in 9 days. Continue iron therapy. Continue antibiotics until tomorrow morning. Plan on discharge in the morning and start Cipro at dinner. Jose Daniel Baldwin M.D./pos Electronically Signed By: JOSE DANIEL BALDWIN MD On: 10/29/2014 07:15 AM Source: [facility] MHSDOLBEYNONRADSYS Document Id: [id number] Jose Daniel Baldwin M.D. - 10/27/2014 12:00 AM CDT [id number] Swing bed status SUBJECTIVE: Patient having 5 [...] able to discharge on Thursday. Jose Daniel Baldwin M.D./pos Electronically Signed By: JOSE DANIEL BALDWIN MD On: 10/27/2014 12:53 PM Source: [facility] MHSDOLBEYNONRADSYS Document Id: [id number] Krystyna Gross - 10/26/2014 11:10 AM CDT SSA Social Work Assessment inpatient REFERRAL SOURCE Automatic PURPOSE OF VISIT REASON FOR ASSESSMENT TCU admission PERSONS INTERVIEWED pt REASON FOR VISIT Urosepsis HISTORY OF PRESENT ILLNESS Pt is a 78 year old female who resides independently in [place], [place]. She said she had been feeling [...] with her medication when needed. SPIRITUALITY / PROTESTANT / CULTURE Pt is Yazidism LEGAL Per EMR, pt is DNR and [...] Provided information on the role of the geriatric social worker. PLAN 1. Pt will continue on IV antibiotics and then plans to DC home when those are complete. 2. SW will continue to follow and assist as needed. 3. A list of agencies within the area that patient/family geographically resides or requests has been provided to and reviewed with patient/family. Disclosure of [facility] financial interest in [facility] ([facility]) was provided to and acknowledged by patient/family. [...] KRYSTYNA GROSS On: 10/26/2014 11:11 AM Source: [employer] Document Id: [id number] Krystyna Gross - 10/25/2014 3:37 PM CDT attempted visit SW attempted 4x to meet with the pt today and pt had various company. Will try to see pt tomorrow to complete assessemtn. Electronically Signed By: KRYSTYNA GROSS On: 10/25/2014 03:38 PM Source: [employer] Document Id: [id number] Gloria Ortiz P.Regis. - 10/25/2014 11:03 AM [...] ORTIZ PT On: 10/25/2014 11:04 AM Source: [employer] Document Id: [id number] documented in this encounter Procedure Notes Rajan [...] CARL RN - 10/27/2014 16:18 CDT Source: [employer] Document Id: [id number] CDT!24 Jaskaran Pederson CRNA - 10/24/2014 4:04 PM CDT Peripheral IV Peripheral IV Entered On: 10/24/2014 16:07 CDT Performed On: 10/24/2014 16:04 CDT by JASKARAN PEDERSON CRNA Peripheral IV Peripheral IV Assess/Intervention Grid Peripheral IV #1 Peripheral IV #2 IV Activity : Assessment Start Number of Attempts : 1 Date of Insertion : 10/24/2014 CDT IV Site : Hand Forearm Laterality : Left Catheter Size : 20 20 Catheter Type : Butterfly Other: Nexivia JASKARAN PEDERSON CRNA - 10/24/2014 16:04 CDT JASKARAN PEDERSON CRNA - 10/24/2014 16:04 CDT Source: [employer] Document Id: [id number] CDT!16 documented in this encounter Consult Yara [...] ALEJO PharmD - 10/24/2014 11:34 CDT Source: [employer] Document Id: [id number] CDT!7 documented in this encounter Nursing Notes Conversion, Historical Provider Ser - 10/28/2014 3:12 PM CDT Patient went out on pass at 14:40 with family. Left PIV wrapped to protect site.Patient understandsto return. Electronically Signed By: LUIZ CINTRON, INBOX [id number] On: 09/21/2015 02:56 PM Co-Signed By: LUIZ CINTRON, INBOX [id number] On: 09/21/2015 02:56 PM Electronically Signed by Proxy by: MIKE TRAN Source: [employer] Document Id: [id number] Amari Jacques, R.N. - 10/26/2014 2:15 PM CDT Focused Assessment - Gastrointestinal Focused Assessment - Gastrointestinal Entered On: 10/26/2014 15:30 CDT Performed On: 10/26/2014 14:15 CDT by AMARI JACQUES RN Gastrointestinal GI Patient Stated Symptoms : None Abdomen Description : Symmetric Abdomen Palpation : Non-Tender, Soft Bowel Movement Last Date : 10/26/2014 CDT Bowel Sounds All Quadrants : Hyperactive Stool Color : Brown, Blood-Tinged Stool Description : Loose Stool Amount : Small AMARI JACQUES RN - 10/26/2014 15:29 CDT Source: [employer] Document Id: [id number] CDT!10 Leti Matthews RDN, FERNIE - 10/25/2014 [...] ESPINAL RDN - 10/25/2014 13:35 CDT Source: [employer] Document Id: [id number] CDT!6 Elsi Cook R.N. - 10/24/2014 9:27 AM CDT Protocol Vascular [...] COOK RN - 10/24/2014 9:27 CDT Source: [employer] Document Id: [id number] CDT!6 Charissa Erwin R.N. - 10/24/2014 8:16 AM CDT Cardiac Monitoring Cardiac Monitoring Entered On: 10/24/2014 10:44 CDT Performed On: 10/24/2014 8:16 CDT by CHARISSA ERWIN RN Cardiac Monitoring Monitoring Lead : II Monitoring Lead Steward/Stewardess Club Car : Discontinued Atrial Rate : 76 bpm Atrial Rhythm : Regular Ventricular Rate : 76 bpm Ventricular Rhythm : Regular AL Interval : 0.13 P to QRS Ratio : 1:1 QRS Duration : 0.12 second(s) QT Interval : 0.36 second(s) AL Consistency : Consistent QRS Consistency : Consistent ST Segment : Isoelectric Ectopy Frequency : None Cardiac Rhythm Tech : Sinus rhythm CHARISSA ERWIN RN - 10/24/2014 10:41 CDT Source: [employer] Document Id: [id number] CDT!17 Charissa Erwin R.N. - 10/24/2014 8:09 AM CDT Cardiac Monitoring Cardiac Monitoring Entered On: 10/24/2014 10:41 CDT Performed On: 10/24/2014 8:09 CDT by CHARISSA ERWIN RN Cardiac Monitoring Monitoring Lead : II Monitoring Lead Steward/Stewardess Club Car : Other: continued Atrial Rate : 78 bpm Atrial Rhythm : Regular Ventricular Rate : 78 bpm Ventricular Rhythm : Regular AL Interval : 0.14 P to QRS Ratio : 1:1 QRS Duration : 0.09 second(s) QT Interval : 0.36 second(s) AL Consistency : Consistent QRS Consistency : Consistent ST Segment : Isoelectric Ectopy Frequency : Rare (1-3/min) Cardiac Rhythm Tech : Sinus rhythm, PVC CHARISSA ERWIN RN - 10/24/2014 10:39 CDT Source: [employer] Document Id: [id number] CDT!17 Tej Cox - 10/23/2014 11:30 PM CDT Cardiac Monitoring Cardiac Monitoring Entered On: 10/23/2014 23:31 CDT Performed On: 10/23/2014 23:30 CDT by TEJ COX Cardiac Monitoring Monitoring Lead : II, V1/MCL1 Ventricular Rate : 75 bpm Ventricular Rhythm : Regular AL Interval : 0.19 QRS Duration : 0.08 second(s) QT Interval : 0.34 second(s) AL Consistency : Consistent QRS Consistency : Consistent ST Segment : Isoelectric Cardiac Rhythm Tech : Sinus rhythm TEJ COX - 10/23/2014 23:30 CDT Source: [employer] Document Id: [id number] CDT!12 documented in this encounter OR Notes Op Note - Jaskaran Pederson CRNA - 10/24/2014 4:01 PM CDT Anesthesia - Difficult IV Placement Difficult IV Start Time:8084-[address] Cole Baldwin Requested to start intravenous line on patient with history of known difficult iv access. 0 attempts by nursing prior to my notification. Site cleansed with ChloraPrep per Hospital protocol. Lidocaine skin wheal. #20 gauge IV placed in left forearm. 1 attempt successful. Positive blood return and flushes easily. Tegaderm and tape used to secure IV per Hospital protocol. Electronically Signed By: JASKARAN PEDERSON CRNA On: 10/24/2014 04:02 PM Source: [employer] Document Id: [id number] documented in this encounter Miscellaneous Notes Miscellaneous - Conversion, Historical Provider Ser - 10/29/2014 8:55 AM CDT Coding Summary-Paper Based CODING DATE: 11/01/2014 FINAL [facility] STATUS: * Discharged to Home or Self Care PAYOR: Medicare Grouper: 945 MS-DRG Rehabilitation w [facility] ADMIT DX: V57.1 Care Involving Other Physical [...] DICK Date Saved: 11/01/2014 02:05 pm Source: [facility] POWERCHART Document Id: [id number] Miscellaneous - Conversion, Historical Provider Ser - [...] Yes/No : No Nail Bed Color : Mahtomedi Capillary Refill : Less than 2 seconds [...] Steady WIN RAMIREZ - 10/29/2014 9:58 CDT Ko[place] Coma Eye Opening Response Ko[place] : Spontaneously Best Verbal Response Marine : Oriented Best Motor Response Marine : Obeys simple commands Marine Coma Score : 15 WIN RAMIREZ 10/29/2014 [...] Integrity : Intact Mucous Membrane Color : Mahtomedi Mucous Membrane Description : Moist WIN RAMIREZ [...] Teaching Evaluation : Verbalizes understanding WIN RAMIREZ Preston RN - 10/29/2014 9:58 CDT Source: [employer] Document Id: [id number] CDT!128 Jarod - Gume Cooley R.N. - 10/29/2014 8:01 AM CDT Valuables/Belongings Valuables/Belongings Entered On: 10/29/2014 8:01 CDT Performed On: 10/29/2014 8:01 CDT by GUME COOLEY RN Valuables/Belongings Home Medication Disposition : None brought in with patient GUME COOLEY RN - 10/29/2014 8:01 CDT [facility] Document Id: [id number] CDT!3 Miscellaneous - Pema Cox R.N. - 10/28/2014 11:39 PM CDT Adult Ongoing Assessment Adult Ongoing Assessment Entered On: 10/28/2014 23:53 CDT Performed On: 10/28/2014 23:39 CDT by PEMA COX RN Respiratory Respiratory Patient Stated Symptoms : None Respiratory Pattern : Regular All Lobes Breath Sounds : Clear Cough : None PEMA COX RN - 10/28/2014 23:39 CDT Cardiovascular CV Patient Stated Symptoms : None Heart Rhythm : Regular Heart Sounds ICU : S1S2 Antiembolism Device Yes/No : No Edema Assessment : No PEMA COX RN - 10/28/2014 23:39 CDT Dorsalis Pedis Pulse, Left : 2+ Normal Dorsalis Pedis Pulse, Right : 2+ Normal PEMA COX RN - 10/28/2014 23:39 CDT Skin Color : Normal for ethnicity Skin Description : Dry Skin Temperature : Warm Activity Tolerance : Without distress PEMA COX RN - 10/28/2014 23:39 CDT Neurological Neuro Patient Stated Symptoms : None Orientation : Oriented x 3 Level of Consciousness : Alert Gait : Steady Swallowing Difficulty/Aspiration Risk : None PEMA COX DEONNA - 10/28/2014 23:39 CDT Marine Coma Eye Opening Response Marine : Spontaneously Best Verbal Response Marine : Oriented Best Motor Response Ko[place]arem : Obeys simple commands Koosharem Coma Score : 15 PEMA COX - 10/28/2014 23:39 CDT Psycho/Emotional Affect/Behavior : Calm, Cooperative Pain Symptoms : No PEMA COX DEONNA - 10/28/2014 23:39 CDT Coping Grid Identifies effective strategies : Yes Uses effective strategies : Yes Behaviors indicate use of coping mechanism : Yes Family supportive and involved in care : Yes PEMA COX DEONNA - 10/28/2014 23:39 CDT Safety Grid Vision, Hearing, Mobility Adequate to Meet Safety Needs : Yes PEMA COX DEONNA - 10/28/2014 23:39 CDT Gastrointestinal GI Patient Stated Symptoms : None Abdomen Description : Rounded Abdomen Palpation : Soft Bowel Movement Last Date : 10/28/2014 CDT Bowel Sounds All Quadrants : Present Stool Description : Soft PEMA COX DEONNA - 10/28/2014 23:39 CDT Genitourinary Patient Stated Symptoms : None PEMA COX DEONNA - 10/28/2014 23:39 CDT Integumentary Integumentary Patient Stated Symptoms : Bruising Skin Integrity : Intact PEMA COX - 10/28/2014 23:39 CDT Skin Abnormality/Location Grid Location : Abdomen Hand Lower arm Laterality : Left, Right Left, Right Right Abnormality : Bruising Bruising PEMA COX DEONNA - 10/28/2014 23:39 CDT PEMA COX Preston YIGN - 10/28/2014 23:39 CDT PEMA COX Preston - 10/28/2014 23:39 CDT Skin Color : Normal for ethnicity PEMA COX DEONNA - 10/28/2014 23:39 CDT Shawn Sensory Perception Shawn : No impairment Moisture Shawn : Rarely moist Activity Shawn : Walks frequently Mobility Shawn : No limitations Nutrition Shawn : Excellent Friction and Shear Shawn : No apparent problem Shawn Score : 23 PEMA COX DEONNA - 10/28/2014 23:39 CDT Peripheral IV Peripheral [...] Secondary Tubing Changed : 10/26/2014 CDT PEMA COX RN - 10/28/2014 23:39 CDT PEMA COX RN - 10/28/2014 23:39 CDT Hendrich II [...] Risk Score Hendrich II : 1 PEMA COX RN - 10/28/2014 23:39 CDT Education General Patient Education Power[employer] Topics : Medication dosage, route, scheduling, Plan of care Individuals Taught : Patient, Daughter Barriers to Learning : None evident Teaching Method : Explanation Teaching Evaluation : Verbalizes understanding PEMA COX RN - 10/28/2014 23:39 CDT Source: [employer] Document Id: [id number] CDT!112 Miscellaneous - Nabeel Garces - 10/28/2014 11:24 AM CDT Adult Activities of Daily Living Adult Activities of Daily Living Entered On: 10/28/2014 11:24 CDT Performed On: 10/28/2014 11:24 CDT by NABEEL GARCES ADLs II Hygiene Assistance Grid Shower : Minimum assistance NABEEL GARCES - 10/28/2014 11:24 CDT Bowel Movement Last Date : 10/27/2014 CDT Standard Safety : Call device within reach, Non-Slip footwear, Rounds every 1 hour, Upper/Half-length side-rails up NABEEL GARCES - 10/28/2014 11:24 CDT Source: [employer] Document Id: [id number] CDT!6 Miscellaneous - Conversion, Historical Provider Ser [...] Yes/No : No Nail Bed Color : Mahtomedi Capillary Refill : Less than 2 seconds [...] WIN RAMIREZ RN - 10/28/2014 10:11 CDT Koosharem Coma Eye Opening Response Koosharem : Spontaneously Best Verbal Response Marine : Oriented Best Motor Response Koosh[place]m : Obeys simple commands Koosharem Coma Score : 15 WIN RAMIREZ RN [...] : Regular Appetite : Good WIN RAMIREZ - 10/28/2014 10:11 CDT Genitourinary Patient Stated Symptoms : None Urinary Elimination : Voiding, no difficulties Urine Color : Yellow Urine Description : Clear WIN RAMIREZ - 10/28/2014 10:11 CDT Integumentary Integumentary Patient Stated Symptoms : Bruising Skin Turgor : Elastic Skin Integrity : Intact Mucous Membrane Color : Mahtomedi Mucous Membrane Description : Moist WIN RAMIREZ - 10/28/2014 10:11 CDT Skin Abnormality/Location Grid Location : Abdomen Hand Lower arm Laterality : Left, Right Left, Right Right Abnormality : Bruising Bruising Bruising WIN RAMIREZ - 10/28/2014 10:11 CDT WIN RAMIREZ - [...] RAMIREZ - 10/28/2014 10:11 CDT WIN RAMIREZ - 10/28/2014 10:11 CDT Hendrich II Fall [...] RAMIREZ RN - 10/28/2014 10:11 CDT Source: [employer] Document Id: [id number] CDT!127 Miscellaneous - Nadine Mauro RXeniaNXenia - 10/27/2014 11:15 PM CDT Adult Ongoing Assessment Adult Ongoing Assessment Entered On: 10/27/2014 22:13 CDT Performed On: 10/27/2014 23:15 CDT by NADINE MAURO RN Respiratory Respiratory Patient Stated Symptoms : None Respirations : Unlabored All Lobes Breath Sounds : Clear Cough : None Sputum Amount : None Suction : None Airway : Patent NADINE MAURO RN - 10/27/2014 23:27 CDT Cardiovascular CV Patient Stated Symptoms : None Antiembolism Device Yes/No : No Nail Bed Color : Mahtomedi Capillary Refill : Greater than 2 seconds Edema Assessment : No NADINE MAURO RN - 10/27/2014 23:27 CDT Radial Pulse, Left : 2+ Normal Radial Pulse, Right : 2+ Normal Dorsalis Pedis Pulse, Left : 2+ Normal Dorsalis Pedis Pulse, Right : 2+ Normal NADINE MAURO RN - 10/27/2014 23:27 CDT Skin Color : Normal for ethnicity Skin Description : Dry, Fragile Skin Temperature : Warm Activity Tolerance : Minimal distress NADINE MAURO RN - 10/27/2014 23:27 CDT Neurological Neuro Patient Stated Symptoms : None Orientation : Oriented x 3 Level of Consciousness : Alert Gait : Steady Swallowing Difficulty/Aspiration Risk : None NADINE MAURO RN - 10/27/2014 23:27 CDT Oral Assessment Lips : Smooth, pink, moist, intact Gingiva : Mahtomedi, smooth, moist, intact Tongue : Smooth, pink, moist, intact Teeth : Patient has dentures Saliva : Thin, watery, plentiful NADINE MAURO RN - 10/27/2014 23:27 CDT Psycho/Emotional Affect/Behavior : Calm, Cooperative, Appropriate Pain Symptoms : No Feels Rested : Yes NADINE MAURO RN - 10/27/2014 23:27 CDT Coping Grid [...] Yes Values/Beliefs incorporated appropriately : Yes NADINE MAURO RN - 10/27/2014 23:27 CDT Safety Grid Vision, Hearing, Mobility Adequate to Meet Safety Needs : Yes NADINE MAURO RN 10/27/2014 23:27 CDT Gastrointestinal GI Patient Stated Symptoms : None Abdomen Description : Symmetric Abdomen Palpation : Non-Tender, Soft Bowel Movement Last Date : 10/27/2014 CDT NADINE MAURO RN 10/27/2014 23:27 CDT Nutrition Appetite : Good Eating Difficulties : None Feeding Ability : Complete independence NADINE MAURO RN - 10/27/2014 23:27 CDT Genitourinary Patient Stated Symptoms : None Urinary Elimination : Voiding, no difficulties Urine Color : Yellow NADINE MAURO RN - 10/27/2014 23:27 CDT Integumentary Integumentary Patient Stated Symptoms : Bruising, Fragile skin Skin Turgor : Non-Elastic Skin Integrity : Intact Mucous Membrane Color : [place] Mucous Membrane Description : Moist NADINE MAURO RN - 10/27/2014 23:27 CDT Skin Abnormality/Location Grid Location : Abdomen Hand Lower arm Laterality : Left, Right Left, Right Right Abnormality : Bruising Bruising Bruising NADINE MAURO RN - 10/27/2014 23:27 CDT NADINE MAURO RN - 10/27/2014 23:27 CDT NADINE MAURO RN - 10/27/2014 23:27 CDT Shawn Sensory Perception Shawn : No impairment Moisture Shawn : Rarely moist Activity Shawn : Walks frequently Mobility Shawn : No limitations Nutrition Shawn : Adequate Friction and Shear Shawn : No apparent problem Shawn Score : 22 NADINE MAURO RN - 10/27/2014 23:27 CDT Musculoskeletal Musculoskeletal Patient Stated Symptoms : None NADINE MAURO RN - 10/27/2014 23:27 CDT Peripheral IV [...] Secondary Tubing Changed : 10/26/2014 CDT NADINE MAURO RN - 10/27/2014 23:27 CDT NADINE MAURO RN - 10/27/2014 23:27 CDT Hendrich II [...] Risk Score Hendrich II : 1 NADINE MAURO RN - 10/27/2014 23:27 CDT Safe Patient Handling Safe Pt Handling Independent : Yes - No equipment needed Safe Pt Handling Equipment Rec : No Equipment Needed NADINE MAURO RN - 10/27/2014 23:27 CDT Education General Patient Education Powergrid Topics : Medication generic/brand names, purpose, action, Plan of care, Safety, fall Individuals Taught : Patient Barriers to Learning : None evident Teaching Method : Explanation Teaching Evaluation : Verbalizes understanding NADINE MAURO RN - 10/27/2014 23:27 CDT Source: 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 Document Id: [id number] CDT!168 Miscellaneous - Evelyn Montano R.N. - [...] MONTANO RN - 10/27/2014 16:05 CDT Source: [employer] Document Id: [id number] CDT!26 Miscellaneous - Lily Morton, O.T. - [...] MORTON OT - 10/27/2014 13:55 CDT Source: [employer] Document Id: [id number] CDT!6 Miscellaneous - Rajan Carl R.N. 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 Document Id: [id number] CDT!145 Miscellaneous - Nadine Mauro RXeniaNXenia - 10/26/2014 11:42 PM CDT Adult Ongoing Assessment Adult Ongoing Assessment Entered On: 10/26/2014 23:46 CDT Performed On: 10/26/2014 23:42 CDT by NADINE MAURO RN Respiratory Respiratory Patient Stated Symptoms : None Respirations : Unlabored All Lobes Breath Sounds : Clear Cough : Occasional, Weak Sputum Amount : None Suction : None Airway : Patent NADINE MAURO RN - 10/26/2014 23:42 CDT Cardiovascular CV Patient Stated Symptoms : None Heart Rhythm : Regular Antiembolism Device Yes/No : No Nail Bed Color : [place] Capillary Refill : Less than 2 seconds Edema Assessment : No NADINE MAURO RN - 10/26/2014 23:42 CDT Radial Pulse, [...] Steady Swallowing Difficulty/Aspiration Risk : None NADINE MAURO 10/26/2014 23:42 CDT Oral Assessment Lips : Smooth, pink, moist, intact Tongue : Smooth, pink, moist, intact Saliva : Thin, watery, plentiful NADINE MAURO 10/26/2014 23:42 CDT Psycho/Emotional Affect/Behavior : Calm, Cooperative, Appropriate Pain Symptoms : No Feels Rested : Yes NADINE MAURO 10/26/2014 23:42 CDT Coping Grid Identifies effective strategies : Yes Uses effective strategies : Yes Reports increase in psychological comfort : Yes Indicates sense of control : Yes Stressors perceived within control : Yes Stable mood with appropriate affect : Yes Behaviors indicate use of coping mechanism : Yes Family supportive and involved in care : Yes Values/Beliefs incorporated appropriately : Yes NADINE MAURO 10/26/2014 23:42 CDT Safety Grid Vision, Hearing, Mobility Adequate to Meet Safety Needs : Yes NADINE MAURO 10/26/2014 23:42 CDT Gastrointestinal GI Patient Stated Symptoms : None Abdomen Palpation : Non-Tender, Soft Bowel Movement Last Date : 10/26/2014 CDT Bowel Sounds All Quadrants : Hyperactive NADINE MAURO 10/26/2014 23:42 CDT Nutrition Appetite : Good Eating Difficulties : None Feeding Ability : Complete independence NADINE MAURO 10/26/2014 23:42 CDT Genitourinary Patient Stated Symptoms : None Urinary Elimination : Voiding, no difficulties NADINE MAURO 10/26/2014 23:42 CDT Integumentary Integumentary Patient Stated Symptoms : Bruising Skin Turgor : Non-Elastic Skin Integrity : Intact Mucous Membrane Color : [place] Mucous Membrane Description : Moist NADNIE MAURO RN - 10/26/2014 23:42 CDT Skin Abnormality/Location Grid Location : Abdomen Hand Lower arm Laterality : Left, Right Left, Right Right Abnormality : Bruising Bruising Bruising NADINE MAURO RN - 10/26/2014 23:42 CDT NADINE MAURO RN - 10/26/2014 23:42 CDT NADINE MAURO RN - 10/26/2014 23:42 CDT Shawn Sensory Perception Shawn : No impairment Moisture Shawn : Rarely moist Activity Shawn : Walks frequently Mobility Shawn : No limitations Nutrition Shawn : Adequate Friction and Shear Shawn : No apparent problem Shawn Score : 22 NADINE MAURO RN - 10/26/2014 23:42 CDT Peripheral IV [...] Transparent Flow/ Patency : No complications NADINE MAURO RN - 10/26/2014 23:42 CDT NADINE MAURO RN - 10/26/2014 23:42 CDT Hendrich II [...] Risk Score Hendrich II : 1 NADINE MAURO RN - 10/26/2014 23:42 CDT Safe Patient Handling Safe Pt Handling Independent : Yes - No equipment needed Safe Pt Handling Equipment Rec : No Equipment Needed NADINE MAURO RN - 10/26/2014 23:42 CDT Education General Patient Education Powergrid Topics : Medication generic/brand names, purpose, action, Plan of care, Safety, fall Individuals Taught : Patient Barriers to Learning : Hearing deficit Teaching Method : Explanation Teaching Evaluation : Verbalizes understanding NADINE MAURO RN - 10/26/2014 23:42 CDT Source: [facility] [employer] Document Id: [id number] CDT!132 Jarod - Charissa Carlisle - 10/26/2014 [...] Counseling Pastoral Intervention Provided : Active Listening, [place] / Pastoral Presence, Ongoing supportive spiritual care Pastoral Care Plan : No Follow Up Needed CHARISSA CARLISLE - 10/26/2014 17:39 CDT [facility] Document Id: [id number] CDT!9 Miscellaneous - Amari Jacques R.N. - 10/26/2014 4:40 PM CDT Adult Ongoing Assessment Adult Ongoing Assessment Entered On: 10/26/2014 17:18 CDT Performed On: 10/26/2014 16:40 CDT by AMARI JACQUES RN Respiratory Respiratory Patient Stated Symptoms : None Respirations : Unlabored Respiratory Pattern : Regular All Lobes Breath Sounds : Clear Cough : None AMARI JACQUES RN - 10/26/2014 17:15 CDT Cardiovascular CV Patient Stated Symptoms : None Heart Rhythm : Regular Antiembolism Device Yes/No : No Nail Bed Color : [place] Capillary Refill : Less than 2 seconds Edema Assessment : No AMARI JACQUES RN 10/26/2014 17:15 CDT Radial Pulse, Left : 2+ Normal Radial Pulse, Right : 2+ Normal Dorsalis Pedis Pulse, Left : 2+ Normal Dorsalis Pedis Pulse, Right : 2+ Normal AMARI JACQUES DEONNA 10/26/2014 17:15 CDT Skin Color : Normal for ethnicity, [place] Skin Description : Dry Skin Temperature : Warm Activity Tolerance : Without distress AMARI JACQUES DEONNA 10/26/2014 17:15 CDT Neurological Neuro Patient Stated Symptoms : None Orientation : Oriented x 3 Level of Consciousness : Alert Gait : Steady Swallowing Difficulty/Aspiration Risk : None AMARI JACQUES Marvin YING 10/26/2014 17:15 CDT Psycho/Emotional Affect/Behavior : Calm, Cooperative, Appropriate Pain Symptoms : No Feels Rested : Yes AMARI JACQUES Marvin YING 10/26/2014 17:15 CDT Coping Grid Identifies effective strategies : Yes Uses effective strategies : Yes Reports increase in psychological comfort : Yes Indicates sense of control : Yes Stressors perceived within control : Yes Stable mood with appropriate affect : Yes Behaviors indicate use of coping mechanism : Yes Family supportive and involved in care : Yes Values/Beliefs incorporated appropriately : Yes AMARI JACQUES Marvin YING 10/26/2014 17:15 CDT Safety Grid Vision, Hearing, Mobility Adequate to Meet Safety Needs : Yes AMARI JACQUES Marvin YING 10/26/2014 17:15 CDT Gastrointestinal GI Patient Stated Symptoms : None Abdomen Description : Symmetric Abdomen Palpation : Non-Tender, Tender Bowel Movement Last Date : 10/26/2014 CDT Emesis Description : Blood-Tinged Bowel Sounds All Quadrants : Present Stool Color : Brown Stool Description : Loose Stool Amount : Small AMARI JACQUES Marvin YING 10/26/2014 17:15 CDT Nutrition Home Diet : Regular AMARI JACQUES Marvin YING 10/26/2014 17:15 CDT Genitourinary Patient Stated Symptoms : None Urinary Elimination : Voiding, no difficulties AMARI JACQUES Marvin YING 10/26/2014 17:15 CDT Integumentary Integumentary Patient Stated Symptoms : None Skin Turgor : Elastic Skin Integrity : Intact Mucous Membrane Color : [place] Mucous Membrane Description : Moist AMARI JACQUES Marvin YING 10/26/2014 17:15 CDT Skin Abnormality/Location Grid Location : Abdomen Hand Lower arm Laterality : Left, Right Left, Right Right Abnormality : Bruising Bruising Bruising AMARI JACQUES RN - 10/26/2014 17:15 CDT AMARI JACQUES RN - 10/26/2014 17:15 CDT AMARI JACQUES RN - 10/26/2014 17:15 CDT Shawn Sensory Perception Shawn : No impairment Moisture Shawn : Rarely moist Activity Shawn : Walks frequently Mobility Shawn : No limitations Nutrition Shawn : Excellent Friction and Shear Shawn : No apparent problem Shawn Score : 23 AMARI JACQUES RN - 10/26/2014 17:15 CDT Peripheral IV [...] CDT Flow/ Patency : No complications AMARI JACQUES RN - 10/26/2014 17:15 CDT AMARI JACQUES RN - 10/26/2014 17:15 CDT Hendrich II [...] Risk Score Hendrich II : 1 AMARI JACQUES RN - 10/26/2014 17:15 CDT Safe Patient Handling Safe Pt Handling Independent : Yes - No equipment needed Safe Pt Handling Equipment Rec : No Equipment Needed AMARI JACQUES RN - 10/26/2014 17:15 CDT Source: [employer] Document Id: [id number] CDT!118 Miscellaneous - Antonio Hay - 10/26/2014 10:15 AM CDT Adult Activities of Daily Living Adult Activities of Daily Living Entered On: 10/26/2014 15:25 CDT Performed On: 10/26/2014 10:15 CDT by ANTONIO HAY HOGSHEAD COOPER ADLs I Patient Position : Elevate head [...] cm) Ambulation Patient Effort : ANTONIO Rosas HOGSHEAD COOPER - 10/26/2014 15:23 CDT ADLs II Hygiene Assistance Grid Foot Care : Independent Hair Care : Independent Oral Care : Independent Catrina Care : Independent Shower : Independent Upper Body Dressing(Clothing) : Independent Lower Body Dressing(Clothing) : Independent ANTONIO HAY HOGSHEAD COOPER - 10/26/2014 15:23 CDT Bowel Movement Last Date : 10/26/2014 CDT Standard Safety : Call device within reach, ID band check ANTONIO HAY - 10/26/2014 15:23 CDT Source: [employer] Document Id: [id number] CDT!23 Miscellaneous - Amari Jacques R.N. - 10/26/2014 10:00 AM CDT Adult Activities of Daily Living Adult Activities of Daily Living Entered On: 10/26/2014 11:05 CDT Performed On: 10/26/2014 10:00 CDT by AMARI JACQUES RN ADLs I Patient Position : Sitting [...] Non-Slip footwear, Rounds every 1 hour AMARI JACQUES RN - 10/26/2014 11:04 CDT ADLs Adult Nutrition Diet Type : Diet -- 10/24/14 9:26:00 CDT, General (No Restrictions) AMARI JACQUES RN - 10/26/2014 11:04 CDT Source: [facility] [employer] Document Id: [id number] CDT!12 Miscellaneous - Amari Jacques R.N. - 10/26/2014 9:45 AM CDT Adult Ongoing Assessment Adult Ongoing Assessment Entered On: 10/26/2014 10:01 CDT Performed On: 10/26/2014 9:45 CDT by AMARI JACQUES RN Respiratory Respiratory Patient Stated Symptoms : None Respirations : Unlabored Respiratory Pattern : Regular All Lobes Breath Sounds : Clear Cough : None Sputum Amount : None AMARI JACQUES RN - 10/26/2014 9:58 CDT Cardiovascular CV Patient Stated Symptoms : None Heart Rhythm : Regular Antiembolism Device Yes/No : No Nail Bed Color : [place] Capillary Refill : Less than 2 seconds Edema Assessment : No AMARI JACQUES RN - 10/26/2014 9:58 CDT Radial Pulse, Left : 2+ Normal Radial Pulse, Right : 2+ Normal Dorsalis Pedis Pulse, Left : 2+ Normal Dorsalis Pedis Pulse, Right : 2+ Normal AMARI JACQUES RN - 10/26/2014 9:58 CDT Skin Color : Normal for ethnicity, [place] Skin Description : Dry Skin Temperature : Warm Activity Tolerance : Without distress AMARI JACQUES RN - 10/26/2014 9:58 CDT Neurological Neuro Patient Stated Symptoms : None Orientation : Oriented x 3 Level of Consciousness : Alert Gait : Steady Swallowing Difficulty/Aspiration Risk : None AMARI JACQUES RN - 10/26/2014 9:58 CDT Oral Exam - Swing Bed Teeth and supporting structure for : No abnormality Oral Cavity Tissue for : No abnormality Gums for : No abnormality Partials or Dentures for : No abnormality AMARI JACQUES RN - 10/26/2014 9:58 CDT Psycho/Emotional Affect/Behavior : Calm, Cooperative, Appropriate Pain Symptoms : No Feels Rested : Yes AMARI JACQUES RN - 10/26/2014 9:58 CDT Coping Grid [...] Yes Values/Beliefs incorporated appropriately : Yes AMARI JACQUES Marvin YING - 10/26/2014 9:58 CDT Safety Grid Vision, Hearing, Mobility Adequate to Meet Safety Needs : Yes AMARI JACQUES Marvin YING - 10/26/2014 9:58 CDT Gastrointestinal Passing Flatus : No JACQUESAMARI Marvin YING 10/26/2014 10:01 CDT GI Patient Stated Symptoms : None Abdomen Description : Symmetric Abdomen Palpation : Non-Tender, Soft Bowel Movement Last Date : 10/25/2014 CDT Bowel Sounds All Quadrants : Hyperactive AMARI JACQUES Marvin YING - 10/26/2014 9:58 CDT Nutrition Home Diet : Regular Appetite : Good Eating Difficulties : None Feeding Ability : Complete independence AMARI JACQUES Marvin YING - 10/26/2014 9:58 CDT Genitourinary Patient Stated Symptoms : None Urinary Elimination : Voiding, no difficulties JACQUES, AMARI Marvin YING - 10/26/2014 9:58 CDT Integumentary Integumentary Patient Stated Symptoms : None Skin Turgor : Elastic Skin Integrity : Intact Mucous Membrane Color : [place] Mucous Membrane Description : Moist AMARI JACQUES Marvin YING - 10/26/2014 9:58 CDT Skin Abnormality/Location Grid Location : Abdomen Hand Lower arm Laterality : Left, Right Left, Right Right Abnormality : Bruising Bruising Bruising JACQUES, AMARI Marvin YING - 10/26/2014 9:58 CDT JACQUES, AMARI Marvin - 10/26/2014 9:58 CDT CLEO AMARI Marvin YING 10/26/2014 9:58 CDT Shawn Sensory Perception Shawn : No impairment Moisture Shawn : Rarely moist Activity Shawn : Walks frequently Mobility Shawn : No limitations Nutrition Shawn : Excellent Friction and Shear Shawn : No apparent problem Shawn Score : 23 JACQUESAMARI Marvin YING - 10/26/2014 9:58 CDT Peripheral IV Peripheral IV [...] Dry Flow/ Patency : No complications AMARI JACQUES RN - 10/26/2014 9:58 CDT AMARI JACQUES RN - 10/26/2014 9:58 CDT Hendrich II [...] Risk Score Hendrich II : 1 AMARI JACQUES RN - 10/26/2014 9:58 CDT Safe Patient Handling Safe Pt Handling Independent : Yes - No equipment needed Safe Pt Handling Equipment Rec : No Equipment Needed AMARI JACQUES RN - 10/26/2014 9:58 CDT Source: [employer] Document Id: [id number] CDT!3 Miscellaneous - Nadine Mauro RXeniaNXenia - 10/25/2014 11:44 PM CDT Adult Ongoing Assessment Adult Ongoing Assessment Entered On: 10/25/2014 21:33 CDT Performed On: 10/25/2014 23:44 CDT by NADINE MAURO RN Respiratory Respiratory Patient Stated Symptoms : None Respirations : Unlabored Respiratory Pattern : Regular All Lobes Breath Sounds : Clear Cough : None Sputum Amount : None Suction : None Airway : Patent NADINE MAURO RN - 10/25/2014 21:26 CDT Cardiovascular CV Patient Stated Symptoms : None Heart Rhythm : Regular Antiembolism Device Yes/No : No Nail Bed Color : [place] Capillary Refill : Less than 2 seconds Edema Assessment : No NADINE MAURO RN - 10/25/2014 21:26 CDT Radial Pulse, Left : 2+ Normal Radial Pulse, Right : 2+ Normal Dorsalis Pedis Pulse, Left : 2+ Normal Dorsalis Pedis Pulse, Right : 2+ Normal NADINE MAURO RN - 10/25/2014 21:26 CDT Skin Color : Normal for ethnicity Skin Description : Dry Skin Temperature : Warm Activity Tolerance : Minimal distress NADINE MAURO RN - 10/25/2014 21:26 CDT Neurological Neuro Patient Stated Symptoms : None Orientation : Oriented x 3 Level of Consciousness : Alert Gait : Steady Swallowing Difficulty/Aspiration Risk : None NADINE MAURO 10/25/2014 21:26 CDT Oral Assessment Lips : Smooth, pink, moist, intact Gingiva : [place], smooth, moist, intact Tongue : Smooth, pink, moist, intact Teeth : Patient has dentures Saliva : Thin, watery, plentiful NADINE MAURO - 10/25/2014 21:26 CDT Psycho/Emotional Affect/Behavior : Calm, Cooperative, Appropriate Pain Symptoms : No Feels Rested : Yes NADINE MAURO 10/25/2014 21:26 CDT Coping Grid Identifies effective strategies : Yes Uses effective strategies : Yes Reports increase in psychological comfort : Yes Indicates sense of control : Yes Stressors perceived within control : Yes Stable mood with appropriate affect : Yes Behaviors indicate use of coping mechanism : Yes Family supportive and involved in care : Yes Values/Beliefs incorporated appropriately : Yes NADINE MAURO 10/25/2014 21:26 CDT Safety Grid Vision, Hearing, Mobility Adequate to Meet Safety Needs : Yes NADINE MAURO 10/25/2014 21:26 CDT Gastrointestinal GI Patient Stated Symptoms : None Abdomen Description : Symmetric Abdomen Palpation : Non-Tender, Soft Bowel Movement Last Date : 10/25/2014 CDT Bowel Sounds All Quadrants : Present NADINE MAURO RN 10/25/2014 21:26 CDT Nutrition Appetite : Good Eating Difficulties : None Feeding Ability : Complete independence NADINE MAURO 10/25/2014 21:26 CDT Genitourinary Patient Stated Symptoms : None Urinary Elimination : Voiding, no difficulties NADINE MAURO RN 10/25/2014 21:26 CDT Integumentary Integumentary Patient Stated Symptoms : Bruising Skin Integrity : Intact Mucous Membrane Color : [place] Mucous Membrane Description : Moist NADINE MAURO 10/25/2014 21:26 CDT Skin Abnormality/Location Grid Location : Abdomen Hand Lower arm Laterality : Left, Right Left, Right Right Abnormality : Bruising Bruising Bruising NADINE MAURO RN - 10/25/2014 21:26 CDT NADINE MAURO 10/25/2014 21:26 CDT NADINE MAURO 10/25/2014 21:26 CDT Shawn Sensory Perception Shawn : No impairment Moisture Shawn : Rarely moist Activity Shawn : Walks frequently Mobility Shawn : No limitations Nutrition Shawn : Adequate Friction and Shear Shawn : No apparent problem Shawn Score : 22 NADINE MAURO RN - 10/25/2014 21:26 CDT Musculoskeletal Musculoskeletal Patient Stated Symptoms : None NADINE MAURO RN 10/25/2014 21:26 CDT Peripheral IV Peripheral [...] Transparent Flow/ Patency : No complications NADINE MAURO RN - 10/25/2014 23:42 CDT NADINE MAURO 10/25/2014 21:26 CDT Hendrich II Fall Risk [...] Risk Score Hendrich II : 1 NADINE MAURO RN 10/25/2014 21:26 CDT Safe Patient Handling Safe Pt Handling Equipment Rec : No Equipment Needed NADINE MAURO 10/25/2014 23:42 CDT Safe Pt Handling Independent : Yes - No equipment needed NADINE MAURO 10/25/2014 21:26 CDT Education General Patient Education [employer] Topics : Medication generic/brand names, purpose, action, Pain Management, Plan of care, Printed materials, Safety, fall Individuals Taught : Patient Barriers to Learning : None evident Teaching Method : Explanation, Printed materials Teaching Evaluation : Verbalizes understanding NADINE MAURO RN - 10/25/2014 21:26 CDT Source: [employer] Document Id: [id number] CDT!133 Silvina Smith - 10/25/2014 10:23 PM [...] : Active Ambulation Patient Effort : Good SILVNIA DIGGS - 10/25/2014 22:23 CDT ADLs II [...] SILVINA DIGGS - 10/25/2014 22:23 CDT Source: [employer] Document Id: [id number] CDT!18 Larry Adler O.T. - 10/25/2014 3:56 PM CDT Activity Participation Activity Participation Entered On: 10/25/2014 15:57 CDT Performed On: 10/25/2014 15:56 CDT by LARRY LEYVA Activity Participation Recreational Activity - Restorative : Reading, Table Games, Visitors Activities offered by - Recreational : Other: visitors Patient Participation - Recreational : Yes Treatment Response - Recreational : Expected Additional Comments : Pt had several visitors today; in TCU lounge playing cards with a group. LARRY LEYVA - 10/25/2014 15:56 CDT [facility] Document Id: [id number] CDT!7 Miscellaneous - Larry Leyva, O.T. - 10/25/2014 3:48 PM CDT Activities Assessment Activities Assessment Entered On: 10/25/2014 15:56 CDT Performed On: 10/25/2014 15:48 CDT by LARRY LEYVA Patient/Resident Information Maritial Status : Hinduism Preference : Yazidism: Alevism Information Provided By : Patient, Chart, Observation LARRY LEYVA - 10/25/2014 15:48 CDT Physical Function Orientation : Oriented x 3 Mobility : Independent Modes of Expression : Speech Languages : Beninese Vision : Glasses LARRY LEYVA - 10/25/2014 15:48 CDT Sense of Involvement Sense of Involvement : At ease doing self-initiated activities, At ease interacting with others, Daily contact with family/close friends, Establishes own goals, Involved in group activities LARRY LEYVA - 10/25/2014 15:48 CDT Activity Pursuit Patterns Time Awake : Morning, Afternoon, Evening Preferred Activity Setting : Day/activity room, Inside building but out of room, Outside facility LARRY LEYVA - 10/25/2014 15:48 CDT Interest Inventory Interest Inventory - Grid Baking/Cooking : Yes Cards/Games : Yes Current Events/News : Yes Gardening : Yes Outdoor Activities : Yes Outings : Yes Reading : Yes TV Programs : Yes Walking/[place] Outdoors : Yes Visitors : Yes HIPOLITOLARRY Hanna M - 10/25/2014 15:48 CDT Additional Assessment Information Activities Assessment Additional Info : Pt rec's IV antibiotics every 8 hours s/p urosepsis. She is ambulatory w/out AD, alert and oriented. Recently , has a good support network. HIPOLITOLARRY Hanna M - 10/25/2014 15:48 CDT Care Plan Care Plan Strengths : Pt indep in ambulation and all ADL's; very social with frequent and prolonged visitors. Req's hospitaliztion for IV antibiotics. Recreation Therapy Goals : Pt will participate in 1 daily activity outside of her room. AUTUMNLARRY - 10/25/2014 15:48 CDT Source: [employer] Document Id: [id number] CDT!33 Miscellaneous - Conversion, Historical Provider Ser [...] Yes/No : No Nail Bed Color : [place] Capillary Refill : Less than 2 seconds [...] 14:19 CDT Marine Coma Eye Opening Response Marine : Spontaneously Best Verbal Response [place] : Oriented Best Motor Response Marine : [...] HAQUE Tanya - 10/25/2014 14:19 CDT Source: [place] [place] Document Id: [id number] CDT!94 Krystyna Warner - 10/25/2014 12:46 PM CDT Team Meeting Notes Team Meeting Notes Entered On: 10/25/2014 12:46 CDT Performed On: 10/25/2014 12:46 CDT by KRYSTYNA GROSS Team Notes Team Meeting Grid Discipline : [place] Hand, Hat Copyist, Information Systems Consultant, Nurse, Occupational Therapist, Patient, Physical Therapist, Bilingual [employer] Teacher, Speech Therapist, Other: Nurse Watch Repairer Topics : Medication, Plan of care Goal of the Day : Pt is on Zosyn Q8 and switched to TCU on 10/24/14. KRYSTYNA GROSS - 10/25/2014 12:46 CDT Source: [place] Document Id: [id number] CDT!7 Jarod - Pretty Claire, RXeniaNXenia - [...] PRETTY CLAIRE - 10/25/2014 13:26 CDT Source: [place] Document Id: [id number] CDT!12 Lindycellmira - Pretty Claire R.N. - 10/25/2014 10:00 [...] PRETTY CLAIRE - 10/25/2014 13:26 CDT Source: [place] Document Id: [id number] CDT!8 Jarod - Charissa Erwin RAbimbola - [...] : None Airway : Patent CHARISSA ERWIN 10/25/2014 11:50 CDT Cardiovascular CV Patient Stated Symptoms : None Heart Rhythm : Regular Heart Sounds ICU : S1S2 Antiembolism Device Yes/No : No Nail Bed Color : [place] Capillary Refill : Less than 2 seconds Edema Assessment : No Pacer : No CHARISSA ERWIN 10/25/2014 11:50 CDT Radial Pulse, Left : 2+ Normal Radial Pulse, Right : 2+ Normal Dorsalis Pedis Pulse, Left : 2+ Normal Dorsalis Pedis Pulse, Right : 2+ Normal CHARISSA ERWIN 10/25/2014 11:50 CDT Skin Color : [place] Skin Description : Normal Skin Temperature : Warm Activity Tolerance : Without distress CHARISSA ERWIN 10/25/2014 11:50 CDT Neurological Neuro Patient Stated Symptoms : None Orientation : Oriented x 3 Level of Consciousness : Alert Gait : Steady Swallowing Difficulty/Aspiration Risk : None CHARISSA ERWIN 10/25/2014 11:50 CDT [place] Coma Eye Opening Response [place] : Spontaneously Best Verbal Response Marine : Oriented Best Motor Response [place] : Obeys simple commands Marine Coma Score [...] : Smooth, pink, moist, intact Gingiva : [place], smooth, moist, intact Tongue : Smooth, pink, moist, intact Teeth : Clean, no debris Saliva : Thin, watery, plentiful CHARISSA ERWIN DEONNA 10/25/2014 11:50 CDT Psycho/Emotional Affect/Behavior : Calm, Cooperative, Appropriate Pain Symptoms : No CAHRISSA ERWIN Marvin YING 10/25/2014 11:50 CDT Coping Grid [...] Values/Beliefs incorporated appropriately : Yes CHARISSA ERWIN - 10/25/2014 11:50 CDT Safety Grid Vision, Hearing, Mobility Adequate to Meet Safety Needs : Yes RIPCHARISSA RN - 10/25/2014 11:50 CDT Gastrointestinal GI Patient Stated Symptoms : None Abdomen Description : Rounded Abdomen Palpation : Soft Bowel Movement Last Date : 10/25/2014 CDT Bowel Sounds All Quadrants : Present CHARISSA ERWIN RN - 10/25/2014 11:50 CDT Nutrition Home Diet : Regular Appetite : Good Eating Difficulties : None Feeding Ability : Complete independence RIPCHARISSA - 10/25/2014 11:50 CDT Genitourinary Patient Stated Symptoms : None Urinary Elimination : Voiding, no difficulties CHARISSA ERWIN RN 10/25/2014 11:50 CDT Integumentary Integumentary Patient Stated Symptoms : None Skin Turgor : Elastic Skin Integrity : Intact Mucous Membrane Color : [place] Mucous Membrane Description : Moist CHARISSA ERWIN RN 10/25/2014 11:50 CDT Skin Abnormality/Location Grid Location : Abdomen Hand Lower arm Laterality : Left, Right Left, Right Right Abnormality : Bruising Bruising Bruising CHARISSA ERWIN - 10/25/2014 11:50 CDT CHARISSA ERWIN 10/25/2014 11:50 CDT CHARISSA ERWIN 10/25/2014 11:50 CDT Skin Color : [place] Skin Description : Normal Skin Temperature : Warm CHARISSA ERWIN 10/25/2014 11:50 CDT Shawn Sensory Perception Shawn : No impairment Moisture Shawn : Rarely moist Activity Shawn : Walks frequently Mobility Shawn : No limitations Nutrition Shawn : Adequate CHARISSA ERWIN - 10/25/2014 11:50 CDT Musculoskeletal Musculoskeletal Patient Stated Symptoms : None Activity Tolerance : Without distress CHARISSA ERWIN RN 10/25/2014 11:50 CDT Peripheral IV Peripheral IV [...] ERWIN RN - 10/25/2014 11:50 CDT Source: [place] Document Id: [id number] CDT!153 Miscellaneous - Maria Napier RXeniaNXenia - [...] Yes/No : No Nail Bed Color : [place] Edema Assessment : No MARIA DAVID RN 10/25/2014 1:11 CDT Radial Pulse, Left : 2+ Normal Radial Pulse, Right : 2+ Normal Dorsalis Pedis Pulse, Left : 2+ Normal Dorsalis Pedis Pulse, Right : 2+ Normal VIC DAVIDFER Marvin YING 10/25/2014 1:11 CDT Skin Color : Normal for ethnicity, [place] Skin Description : Fragile, Moist, Normal Skin Temperature : Warm Activity Tolerance : Without distress MARIA DAVID RN 10/25/2014 1:11 CDT Neurological Neuro Patient Stated Symptoms : None Orientation : Oriented x 3, Appropriate for age Level of Consciousness : Alert Gait : Steady Swallowing Difficulty/Aspiration Risk : None MARIA DAVID RN 10/25/2014 1:11 CDT Marine Coma Eye Opening Response [place] : Spontaneously Best Verbal Response [place] : Oriented Best Motor Response Marine : Obeys simple commands [place] Coma Score : 15 MARIA DAVID RN [...] : Yes Values/Beliefs incorporated appropriately : Yes MAIRA DAVID RN 10/25/2014 1:11 CDT Safety Grid [...] Integrity : Intact Mucous Membrane Color : [place] Mucous Membrane Description : Moist MARIA DAVID RN 10/25/2014 1:11 CDT Skin Abnormality/Location Grid Location : Abdomen Hand Lower arm Laterality : Left, Right Left, Right Right Abnormality : Bruising Bruising Bruising MARIA DAVID RN 10/25/2014 1:11 CDT MARIA DAVID RN 10/25/2014 1:11 CDT MARIA DAVID RN 10/25/2014 1:11 CDT Skin Color : Normal for ethnicity, [place] Skin Description : Fragile, Moist, Normal Skin [...] 1:11 CDT MARIA DAVID RN 10/25/2014 1:11 T MARIA DAVID RN 10/25/2014 1:11 CDT MARIA [...] DAVID RN - 10/25/2014 1:11 CDT Source: [facility] POWERCHART Document Id: [id number] CDT!161 Miscellaneous - Silvina Diggs - 10/24/2014 [...] SILVINA DIGGS - 10/24/2014 21:24 CDT Source: [place] Document Id: [id number] CDT!12 Miscellaneous - Conversion, Historical Provider Ser [...] Yes/No : No Nail Bed Color : [place] Capillary Refill : Less than 2 seconds [...] Swallowing Difficulty/Aspiration Risk : None WIN RAMIREZ 10/24/2014 17:36 CDT Marine Coma Eye Opening Response [place] : Spontaneously Best Verbal Response Marine : Oriented Best Motor Response Marine : Obeys simple commands Marine Coma Score : 15 WIN RAMIREZ 10/24/2014 17:36 CDT Psycho/Emotional Affect/Behavior : Calm, [...] Integrity : Intact Mucous Membrane Color : [place] Mucous Membrane Description : Moist WIN RAMIREZ [...] Nutrition Shawn : Adequate WIN RAMIREZ 10/24/2014 17:36 CDT Musculoskeletal Musculoskeletal Patient Stated [...] - 10/24/2014 17:36 CDT Source: [facility] POWERCHART Document Id: [id number] CDT!115 Miscellaneous - Conversion, Historical Provider Ser [...] beer, cola drinks, and dairy products. ?? [id number] [facility], [address] [place] [address], [place] [address]. All rights reserved. This information is not [...] be at increased risk if you are -Faroese, , ,, or . Signs and symptoms [...] any illicit drugs you may use. ?? [phone] [place] [address]. All rights reserved. This information is not intended as a substitute for professional medical care. Always follow your healthcare professional's instructions. This document has images extracted. Please consider using [employer] for all your patient education needs. Source: [facility] POWERCHART Document Id: [id number] Miscellaneous - Conversion, Historical Provider Ser - [...] beer, cola drinks, and dairy products. ?? [phone] [facility], [address] [place] [address], [place] [address]. All rights reserved. This information is not [...] be at increased risk if you are -Faroese, , ,, or . Signs and symptoms [...] any illicit drugs you may use. ?? [phone] [facility], [address] [place] [address], [place] [id number]. All rights reserved. This information is not intended as a substitute for professional medical care. Always follow your healthcare professional's instructions. This document has images extracted. Please consider using [employer] for all your patient education needs. Source: [facility] POWERCHART Document Id: [id number] Miscellaneous - Conversion, Historical Provider Ser - [...] beer, cola drinks, and dairy products. ?? 9426-4178 [facility], [address] [place] [address], [place] [address]. All rights reserved. This information is not [...] be at increased risk if you are -Faroese, , ,, or . Signs and symptoms [...] any illicit drugs you may use. ?? [phone] [facility], [address] [place] [address], [place] [address]. All rights reserved. This information is not intended as a substitute for professional medical care. Always follow your healthcare professional's instructions. This document has images extracted. Please consider using [employer] for all your patient education needs. Source: [place] Document Id: [id number] Lindycellmira - Yisel Bryson - 10/24/2014 1:00 PM CDT Activity Participation Activity Participation Entered On: 10/24/2014 14:03 CDT Performed On: 10/24/2014 13:00 CDT by YISEL BRYSON Activity Participation Patient Participation - Recreational : No Additional Comments : Due to timing of the activity patient was unable to participate due to nursingworking with her. YISEL BRYSON - 10/24/2014 14:00 CDT Source: [place] Document Id: [id number] CDT!4 Jarod - Lily Morton, O.T. - 10/24/2014 11:32 AM CDT Activity Participation Activity Participation Entered On: 10/24/2014 11:32 CDT Performed On: 10/24/2014 11:32 CDT by LILY MORTON OT Activity Participation Recreational Activity - Restorative : Other: pt enjoys the [employer] Activities offered by - Recreational : Occupational Therapy Patient Participation - Recreational : Yes Treatment Response - Recreational : Expected LILY MORTON OT - 10/24/2014 11:32 CDT Source: [place] Document Id: [id number] CDT!6 Jarod - Elsi Cook RXeniaN. - 10/24/2014 11:07 AM CDT Adult Activities [...] COOK RN - 10/24/2014 11:07 CDT [facility] Document Id: [id number] CDT!6 Miscellaneous - Conversion, Historical Provider Ser [...] ICU : S1S2 Nail Bed Color : [place] Capillary Refill : Less than 2 seconds [...] Integrity : Intact Mucous Membrane Color : [place] Mucous Membrane Description : Moist WIN RAMIREZ [...] RAMIREZ RN - 10/24/2014 12:01 CDT Source: [place] Document Id: [id number] CDT!118 Miscellaneous - Conversion, Historical Provider Ser [...] RAMIREZ RN - 10/24/2014 12:09 CDT Source: [place] Document Id: [id number] CDT!12 Miscellaneous - Conversion, Historical Provider Ser - 10/24/2014 11:00 AM CDT Adult Admission History Adult Admission History Entered On: 10/24/2014 12:49 CDT Performed On: 10/24/2014 11:00 CDT by WIN RAMIREZ RN General Info Preferred Name : Karoline Admitted From : Non-Health Care Facility Point of Origin Accompanied By : Daughter Information Given By : Patient Languages : Beninese Is Patient Female and 13-50 no hysterectomy [...] None Behavioral Health Screen/Safety Assmt : No Hinduism Preference : Yazidism: Alevism WIN RAMIREZ RN - 10/24/2014 12:44 CDT [...] - 10/24/2014 12:44 CDT Source: [facility] POWERCHART Document Id: [id number] CDT!44 Miscellaneous - Nabeel Garces - 10/24/2014 10:25 AM CDT Adult Activities of Daily Living Adult Activities of Daily Living Entered On: 10/24/2014 10:26 CDT Performed On: 10/24/2014 10:25 CDT by NABEEL GARCES ADLs II Hygiene Assistance Grid Shower : Minimum assistance NABEEL GARCES - 10/24/2014 10:25 CDT Standard Safety : Call device within reach, Non-Slip footwear, Rounds every 1 hour, Upper/Half-length side-rails up NABEEL GARCES - 10/24/2014 10:25 CDT Source: [employer] Document Id: [id number] CDT!5 documented in this encounter Plan of [...] Complete, Includes Microscopic (10/28/2014 7:45 AM CDT) [facility] Method Time Signature HXUr Color Yellow Colorless POWERCHART Clarity Clear Clear POWERCHART Glucose Negative Negative POWERCHART MGDL HXBILIRUBIN Negative Negative POWERCHART Ketones, QL(U) Negative Negative POWERCHART MGDL Specific 1.015 POWERCHART Mathews, POCT, U HXBLOOD Negative Negative POWERCHART pH, [...] 10/28/2014 7:45 AM Voided CDT Jose Daniel Baldwin M.D. LAB URINE [...] 5 6:22 CDT AM CDT Jose Daniel Baldwin M.D. LAB BLOOD ADD-ON Performing Organization Address City/State/[facility] Code Phon e Number POWERCHART (ABNORMAL) CBC with Differential (10/27/2014 6:22 AM CDT) Patholo gist Method Time Signature Leukocytes 5.3 3.5 - 10.5 POWERCHART X109L Erythrocytes 3.52 (L) 3.90 - POWERCHART 5.03 [id number] Hemoglobin 10.5 (L) 12.0 - POWERCHART 15.5 GDL Hematocrit 32.2 (L) 34.9 - POWERCHART 44.5 MCV 91.5 81.6 - POWERCHART 98.3 FL HX RDW 14.2 11.9 - POWERCHART 15.5 Platelet Count 213 150 - 450 POWERCHART X109L HXDifferential? Auto POWERCHART Specimen (Source) Anatomical Collection Method Collection Time Re ceived Time Location / / Volume Laterality Blood 10/27/2014 6:22 AM CDT Jose Daniel Baldwin M.D. LAB BLOOD ADD-ON Performing Organization Address City/State/ZIP Code Phon e Number POWERCHART (ABNORMAL) BMP (Basic Metabolic Panel) (10/27/2014 6:22 AM CDT) [facility] Method Time Signature Sodium, S 143 135 [...] eGFR 33.1 (L) >=60.0 POWERCHART Black/ MLMINSA Faroese Glucose 83 70 - 140 POWERCHART MGDL Specimen (Source) Anatomical Collection Method Collection Time Re ceived Time Location / / Volume Laterality Blood 10/27/2014 6:22 AM CDT Jose Daniel Baldwin M.D. LAB BLOOD ADD-ON Performing Organization Address City/State/ZIP Code Phon e Number POWERCHART GI Pathogen Panel, PCR, F (10/26/2014 9:00 PM CDT) Component Value Ref Test Analysis Performed At [facility] [place] Range Method Time Signature HXC Difficile POWERCHART Toxin DNA by PCR HXFinal Negative for POWERCHART Toxigenic Clostridium difficile by Nucleic Acid Amplification HXFinal Reference: POWERCHART Negative Specimen (Source) Anatomical Collection Method Collection Time Re ceived Time Location / / Volume Laterality Stool 10/26/2014 9:00 PM CDT Jose Daniel Baldwin M.D. LAB MICROBIOLOGY - GENERAL O RDERABLES Performing Organization Address City/State/ZIP Code Phon e Number POWERCHART Hemmoccult, POCT (nursing) (10/26/2014 7:30 PM CDT) P athologist Signature HXOccult Bld Negative Negative POWERCHART Stl I Specimen (Source) Anatomical Collection Method Collection Time Re ceived Time Location / / Volume Laterality Stool 10/26/2014 7:30 PM CDT Jose Daniel Baldwin M.D. LAB POCT ORDERABLES-MANUAL Performing Organization Address City/State/ZIP Code Phon e Number POWERCHART documented in this encounter Visit Diagnoses Not on filedocumented in this encounter
--- OUTSIDE RECORDS SUMMARY | 2022-03-21 10:22 | XMS_ITS | Encounter Summary ---
:1935 Author Organization [facility] Address [address] [place] [address] Care Team Providers Name Role Phone Unavailable Primary Care Provider Unavailable Encounter Details Date Type Department Care Team Description 03/03/2016 Hospital Encounter HX [facility] Vinnie Aguilar Jr., M.D. [address] [place], [place] [address] (Wo rk) Social History [...] geriatric Take 1 tablet by 0 01/30/2015 glvastbs-qeyp-nmjw tablet mouth daily. simvastatin (ZOCOR) 10 mg Take 10 mg by 0 015 tablet mouth at bedtime. raNITIdine (ZANTAC) 150 mg 150 mg. 0 5 07/23/2020 tablet documented as of this encounter Miscellaneous Notes Miscellaneous - Conversion, Historical Provider Ser - 03/04/2016 8:03 AM INDEXER Coding Summary-Paper Based CODING DATE: 03/04/2016 FINAL [facility] STATUS: * Discharged to Home or [...] FAGAN Date Saved: 03/04/2016 08:03 am [facility] Document Id: [id number] documented in this encounter Plan of Treatment Not on filedocumented as of this encounter Procedures Procedure Name Priority Date/Time Associated Diagnosis Comme nts BI BREAST SCREENING Routine 03/03/2016 10:30 AM R esults for this BILATERAL INDEXER procedure are i n the results section. documented in this encounter Results BI Breast Screening Bilateral (03/03/2016 10:30 AM INDEXER) Anatomical Region Laterality Modality Breast Bilateral Mammography Specimen (Source) Anatomical Collection Method Collection Time Re ceived Time Location / / Volume Laterality 03/03/2016 10:30 AM INDEXER Addenda Addendum by ProviderAbraham M.D. o n 03/03/2016 10:30 AM INDEXER RAD^^^MA MA Mammo Screening w/ CADD 03/03/2016 10:30:00 Impressions 03/03/2016 11:41 AM INDEXER BI-RADS 2. ??BENIGN FINDING (S) RECOMMENDATION: Routine screening mammog hugh. BREAST MAMMOGRAPHY - GENERAL OBSERVATION S: ??The false negative rate for mammography is 15-20%. ??It cannot b e used, therefore, to replace the regular physical examination. ??A no rmal or noncontributory mammogram report also should not deter t he aggressive further workup of any suspected palpable masses. Narrative 03/03/2016 11:41 AM INDEXER EXAM: Bilateral digital screening mammog junior COMPARISON: [...] exam. Procedure Note Gavin Rodriguez M.D. / ProviderSuad M.D. - 08/16/2016 EXAM: Bilateral digital screening [...]
--- OUTSIDE RECORDS SUMMARY | 2022-03-21 10:22 | XMS_ITS | Encounter Summary ---
:1935 Author Organization [facility] Address [address] [place] [address] Care Team Providers Name Role Phone Unavailable Primary Care Provider Unavailable Encounter Details Date Type Department Care Team Description 01/06/2016 Hospital Encounter HX [facility] ED Guido Rao M.D. [address] [place], [place] [phone] (Wo rk) Social History [...] documented in this encounter Discharge Summaries Abraham Petersen R.N. - 01/06/2016 2:11 PM CDT ED Depart Summary [facility] Emergency Department Clinical Discharge Summary PERSON INFORMATION Name KAROLINE NUÑEZ Age 80 Years 1935 12:00 AM Sex Female Language German PCP BRITNEY BALDWIN MD Marital Status Visit Id Visit Reason Chest pain; Shoulder pain-swelling; shoulder pain Specialty Enc Type Emergency Med Service [facility] 01/06/2016 2:11 PM Tracking Id [id number] Checkout 01/06/2016 2:11 PM Checkin 01/06/2016 12:29 PM Acuity 3 -Urgent Dispo Type * Discharged to Home or Self Care Arrival 01/06/2016 12:29 PM Reg Status LOS 000 01:42 Address: [address] [place] [phone] Comment: PROVIDER INFORMATION Provider Role Provider Contact Time GUIDO ARO MD ED Provider 01/06/16 12:33 ABRAHAM PETERSEN MECHANICAL CAR CHECKER Nurse 01/06/16 13:50 DIAGNOSIS Comment: PATIENT EDUCATION INFORMATION Instructions: CHEST PAIN, NonCardiac Follow up: With: Address: When: BRITNEY BALDWIN [address] [place] [phone] Business (1) Comments: follow up as needed with any questions or concerns Source: [facility] [employer] Document Id: [id number] Abraham Petersen, R.N. - 01/06/2016 2:11 PM CDT ED Discharge Instructions [address] [address] Name: KAROLINE NUÑEZ Date of : 1935 12:00 AM Visit Date: 01/06/2016 12:29 PM [facility] Number: [id number] Address: [address] [place] [phone] Primary Care Provider: BRITNEY BALDWIN MD IMPORTANT: [facility] in [place] would like to thank you for allowing us to assistyou with your healthcare needs. The following includes patient education materials and information regarding your injury/illness. Diagnosis: Follow-Up Instructions: With: Address: When: BRITNEY BALDWIN [address] [place] [phone] Business (1) Comments: follow up as needed [...] pain or redness in one leg ?? [id number] [place] [address]. All rights reserved. This information is not [...] if you dont have one. Go to [email or web address] and click on Create Your Account. Then, follow the directions to complete the online form. Youll be asked for your [facility] number which you can find [...] document has images extracted. Please consider using [employer] for all your patient education needs. Source: [facility] POWERCHART Document Id: [id number] documented in this encounter Medications at Time of Discharge Medication Sig Dispensed Refills Start Date End Date cholecalciferol (VITAMIN Take 1,000 Units 0 11/14 D3) 1,000 Unit capsule by mouth daily. geriatric Take 1 tablet by 0 01/30/2015 zyllmbqk-jzlb-ldet tablet mouth daily. simvastatin (ZOCOR) 10 mg [...] PETERSEN RN - 01/06/2016 14:10 CDT [facility] Document Id: [id number] CDT!11 Abraham Petersen R.N. - 01/06/2016 2:10 [...] PETERSEN RN - 01/06/2016 14:10 CDT Source: [facility] POWERCHART Document Id: [id number] CDT!7 Abraham Petersen R.N. - 01/06/2016 2:09 [...] ABRAHAM PETERSEN RN - 01/06/2016 14:09 CDT [place] Coma Eye Opening Response Marine : Spontaneously Best Verbal Response Marine : Oriented Best Motor Response [place] : Obeys simple commands [place] Coma Score : 15 ABRAHAM PETERSEN RN - 01/06/2016 14:09 CDT Behavioral Health Screen/Safety Reassmt Affect/Behavior : Calm, Cooperative, Appropriate ABRAHAM PETERSEN RN - 01/06/2016 14:09 CDT GI Reassess GI Patient Stated Symptoms : None ABRAHAM PETERSEN RN - 01/06/2016 14:09 CDT /OB Reassess Patient Stated Symptoms : None ABRAHAM PETERSEN RN - 01/06/2016 14:09 CDT Source: [employer] Document Id: [id number] CDT!38 Abraham Petersen R.N. - 01/06/2016 1:32 [...] PETERSEN RN - 01/06/2016 13:32 CDT Source: [employer] Document Id: [id number] CDT!21 Guido Rao M.D. - 01/06/2016 12:51 [...] Absolute 3.43 10(9)/L Lymph Absolute 1.95 x10(9)/L [place] Absolute 0.71 x10(9)/L Eos Absolute 0.11 x10(9)/L [...] RAO MD On: 01/06/2016 02:06 PM Source: [facility] POWERCHART Document Id: {[id number]} Abraham Petersen RXeniaNXenia - 01/06/2016 12:35 PM CDT ED Primary [...] Classification: Medical ; Code: 401.9 ;Contributor System: [employer] ; Last Updated: 10/19/2014 21:37 CDT ; Life Cycle Date: 10/19/2014 ; Life Cycle Status: Active ; Vocabulary: ICD-9-CM 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 ) Name of Problem: Regurgitation Tricuspid NOS ; Recorder: MIKE PAZ MD; Confirmation: Confirmed ; Classification: Medical ; Code: 397.0 ; Contributor System: Scoutzie ; Last Updated: 10/19/2014 21:38 CDT ; Life Cycle Date: 10/19/2014 ; Life CycleStatus: Active ; Vocabulary: ICD-9-CM Diagnoses(Active) Chest pain Date: 01/06/2016 ; Diagnosis Type: Reason For Visit ; Confirmation: Complaint of ; Clinical Dx: Chest pain ; Classification: Medical ; Clinical Service: Emergency medicine ; Code: PNED ; Probability: 0 ; Diagnosis Code: [id number] Shoulder pain-swelling Date: 01/06/2016 ; Diagnosis Type: Reason For Visit ; Confirmation: Confirmed; Clinical Dx: Shoulder pain-swelling ; Classification: Medical ; Clinical Service: Emergency medicine ; Code: PNED ; Probability: 0 ; Diagnosis Code: [id number] Triage Chief Complaint Description : Pt. presents [...] Private vehicle Track : Medical Languages : German Vital Signs Assessed : Yes Treatments Prior [...] Measures Grid Positioning : Yes ABRAHAM PETERSEN 01/06/2016 12:58 CDT ED Physician Notification Time ED Physician Notification Time : 01/06/2016 12:35 CDT ABRAHAM PETERSEN - 01/06/2016 12:58 CDT JOANA JOANA Level 1 : No JOANA Level 2 : Yes ABRAHAM PETERSEN 01/06/2016 12:58 CDT DCP GENERIC CODE [facility] Acuity : 3 -Urgent ABRAHAM [...] ; Type: Allergy ; Updated By: GAGAN TRNA; Reviewed Date: 01/06/2016 13:02 CDT ID Screen [...] Immunizations Immunizations Current : Yes ABRAHAM PETERSEN DEONNA 01/06/2016 12:58 CDT Respiratory Airway : Patent Respirations : Unlabored Respiratory Pattern : Regular Oxygen Therapy : Room air ABRAHAM PETERSEN 01/06/2016 12:58 CDT Cardiovascular Heart Rhythm : Regular Skin Color : [place] Skin Description : Dry Skin Temperature : Warm Cardiovascular Detailed Assessment : Yes Monitoring Lead : II Monitoring Lead [employer] Work Supervisor : Initiated ABRAHAM PETERSEN 01/06/2016 12:58 CDT CV Detailed CV Patient Stated Symptoms : Chest pain Nail Bed Color : [place] Capillary Refill : Less than 2 seconds Cardiac Rhythm : Sinus rhythm, PAC, PVC Ectopy Frequency : None ABRAAHM PETERSEN 01/06/2016 12:58 CDT Neurological Last Well [...] 12:58 CDT Gastrointestinal Nutrition ED : Adequate PETERSENABRAHAM ALARCON DEONNA 01/06/2016 12:58 CDT /OB Assessment Patient [...] PETERSEN RN - 01/06/2016 12:58 CDT Source: [employer] Document Id: [id number] CDT!3 documented in this encounter Miscellaneous Notes Miscellaneous - Conversion, Historical Provider Ser - 01/06/2016 2:11 PM CDT Coding Summary-Paper Based CODING DATE: 01/17/2016 FINAL [facility] STATUS: * Discharged to Home or Self [...] JOHNSON Date Saved: 01/17/2016 01:21 pm Source: [facility] [employer] Document Id: [id number] Miscellaneous - Abraham Petersen R.N. - 01/06/2016 2:10 PM CDT Valuables/Belongings Valuables/Belongings Entered On: 01/06/2016 14:10 CDT Performed On: 01/06/2016 14:10 CDT by ABRAHAM PETERSEN RN Valuables/Belongings Belongings Sent Home With : patient ABRAHAM PETERSEN RN - 01/06/2016 14:10 CDT Source: [employer] Document Id: [id number] CDT!3 Miscellaneous - Abraham Petersen R.N. - [...] Management RTF : Laboratory Basic Metabolic Panel,01/06/16 12:52,GIUDO RAO MD Completed CBC (includes Auto Differential),01/06/16 [...] Nursing Notes ED Primary Assessment,01/06/16 12:35,ABRAHAM PETERSEN MECHANICAL CAR CHECKER Nurse Reassess,01/06/16 14:09,ABRAHAM PETERSEN MECHANICAL CAR CHECKER Nurse Reassess,01/06/16 13:32,ABRAHAM PETERSEN RN Lynx Nursing Assessment : Triage and 3-5 nursing assessments Lynx Disposition : Discharge Disposition RTF : discharge Lynx Total Points with Diagnosis Control : 14 Lynx Visit Level : 54604 Level 5 Treatments Prior to Arrival : None ABRAHAM PETERSEN RN - 01/06/2016 14:10 CDT [facility] Document Id: [id number] CDT!19 documented in this encounter Plan of [...] 01/06/2016 1:29 PM CDT Addenda Addendum by ProviderAbraham M.D. o n 01/06/2016 1:29 PM CDT RAD^^^MA XR Chest [...] abnormality. 2. Moderate-sized hiatal hernia. Danita Lynch R.T.(R)(CT), R.T.(R) IMG DIAGNOSTIC IMAGIN G PROCEDURES Automated [...] X109L Erythrocytes 4.30 3.90 - POWERCHART 5.03 O8160N Hemoglobin 12.7 12.0 - POWERCHART 15.5 GDL [...] M.D. LAB BLOOD ADD-ON Performing Organization Address [facility] Phon e Number POWERCHART Troponin T (01/06/2016 12:50 PM CDT) P athologist Signature Troponin T, S <0.010 <=0.010 POWERCHART NGML Comment: Values > or = 0.01 ng/mL have been shown to have prognostic value. Biotin has been identified by the ellyn cturejuan as a potential interfering substance. Higher concentrations [...] (Basic Metabolic Panel) (01/06/2016 12:50 PM CDT) Patholo gist Method Time Signature Sodium, S 140 [...] eGFR 58.1 (L) >=60.0 POWERCHART Black/ MLMINSA Nauruan Glucose 105 70 - 140 POWERCHART MGDL [...] / Volume Laterality 01/06/2016 12:43 PM CDT [facility] - 01/06/2016 12:43 PM CDT [...] Organization Address City/State/ZIP Code Phon e Number [facility] [address] [place] [phone] documented in this encounter Visit Diagnoses Not on filedocumented in this encounter
--- OUTSIDE RECORDS SUMMARY | 2022-03-21 10:22 | XMS_ITS | Encounter Summary ---
:1935 Author Organization [facility] Address [address] [place] [address] Care Team Providers Name Role Phone Unavailable Primary Care Provider Unavailable Encounter Details Date Type Department Care Team Description 07/24/2016 Hospital En[facility] Berto Lundy M.D. [address] [place] [address] (Wo rk) Social History Tobacco Use Types [...] geriatric Take 1 tablet by 0 01/30/2015 vizxlewh-xroz-play tablet mouth daily. simvastatin (ZOCOR) 10 mg Take 10 mg by mouth 0 0 10/28/2014 tablet at bedtime. Vanicream-plasticized Apply 1 application 0 06/17 base 80-20 % cream with topically 3 (three) triamcinolone acetonide times a day. 40 mg/mL suspension raNITIdine (ZANTAC) 150 150 mg. 0 10/28/2014 0 07/23/2020 mg tablet documented as of this encounter Procedure Notes Marlen Kam RAbimbola - 07/24/2016 9:45 AM CDT Peripheral IV [...] KAM RN - 07/24/2016 9:45 CDT Source: [facility] [employer] Document Id: [id number] CDT!24 Michelle Tate RAbimbola - 07/24/2016 9:07 AM CDT Preprocedure Checklist [...] : Yes Jewelry/Piercing Removed : Yes Makeup/Nail Nepali Removed : Yes Oral Hygiene : Yes Preop Scrub AM of Surgery : Yes Preop Scrub Night Prior to Surgery : Yes Prosthesis Removed : NA Tampon Removed : NA Verified - No hair products used : Yes Voided converting technician to procedure : Yes Wearing Patient Gown [...] TATE RN - 07/24/2016 9:07 CDT Source: [employer] Document Id: [id number] CDT!79 documented in this encounter Nursing Notes [...] Information Given By : Son Languages : Urdu Is Patient Female and 13-50 no hysterectomy [...] None Behavioral Health Screen/Safety Assmt : No Quaker Preference : Judaism: Alevism MICHELLE TATE RN - 07/24/2016 9:02 CDT [...] Leon RN - 07/24/2016 9:02 CDT Source: [employer] Document Id: [id number] CDT!50 Nan Anderson R.N. - 07/16/2016 9:12 AM CDT pre-op SDS pre-op phone call and checklist reviewed with pt over the phone. Electronically Signed By: NAN ANDERSON RN On: 07/16/2016 09:13 AM [facility] Document Id: [id number] documented in this encounter OR Notes Op Note - Conversion, Historical Provider Ser - 07/24/2016 2:51 PM CDT [facility] CASE RECORD UPLOAD DATA PATIENT: KAROLINE NUÑEZ SURGERY DATE: 07/24/2016 UNIT #: [id number] ROOM: [address] NBR: [id number] STATUS: In Process DATE: 1935 SIGN. STATUS: [...] -- PAGE : OR02B Anesthesia Staff Anesthesiologist: MEDICAID BILLER: Jaskaran Brannon MEDICAID BILLER SECTION NAME : 1/IntraOp Case Record -- [...] Surgery Start Time: 1054 OR Nurse Initials: [facility] Notes: BRIEFING DONE ALL PARTICIPATED SECTION NAME : 1/IntraOp Case Record -- PAGE : OR06A Case Personnel Railroad Signal And Switch Operator: Marlen Reyna RN Relief Railroad Signal And Switch Operator: SECTION NAME : 1/IntraOp Case Record -- PAGE : ORZane Case Personnel OR Tech: Lin Penny CST Relief OR Tech: SECTION NAME : 1/IntraOp Case Record -- PAGE : ORReyna Case Ambulance Attendant: MAUREEN None Relief Assist: SECTION NAME : 1/IntraOp Case Record -- PAGE : ORJeannieD Case Personnel Other Name: LUPILLO COON SITE PATH Cole HERNANDEZ SITE PATH Other Role: AGENCY Agency AGENCY Agency Notes: SECTION NAME : 1/IntraOp Case Record -- PAGE : ORGeraldoA Positioning Apply Safety Devices: N/A Safety Strap Applied to: papoose Skin Risk Factors NONE None Comment: SECTION NAME : 1/IntraOp Case Record -- PAGE : ORKasey Positioning Evaluate PreOp Skin: Y PreOp Skin Assessment: unremarkable Positioning Devices: PIL pillow Comment: SECTION NAME : 1/IntraOp Case Record -- PAGE : OR07C Positioning Positioning Protection: PILLOW Pillow GEL Gel Pads Comment: under legs and head Notes: SECTION NAME : 1/IntraOp Case Record -- PAGE : ORDgA Positioning Position for Surgery: SUP Supine Comment: Positioned By: ALCIRA Certified Registered Nurse Electronics Test Engineer RN Registered Nurse Comment: SECTION NAME : [...] : 1/IntraOp Case Record -- PAGE : ORAlbinoB Prep Surgical Clippers: N By: Area: SECTION NAME : 1/IntraOp Case Record -- PAGE : ORPrince Moderate Sedation 1 Clinical Alarms On? O2 Therapy: L/Min: IV Fluid: TOTAL ML: Notes: Notes: SECTION NAME : 1/IntraOp Case Record -- PAGE : МАРИНАE Post Procedure Assess 1 Post Procedure Assessment [...] 5: 10: 15: Out: SECTION NAME : 1/IntraOp Case Record -- PAGE : OR09F Post [...] RN prior to prep SECTION NAME : 1/IntraOp Case Record -- PAGE : OR11A1 Meds2 Time: VO / RBO / Given By: SECTION NAME : 1/Intra Case Record -- PAGE : OR11B XRay X-Rays Taken: N X-Ray Type: Indication for X-Ray: Patient Shield: Other Indication for X-Ray: SECTION NAME : 1/IntraOp Case Record -- PAGE : OR12A Cautery Grounding Pad Applied: N/A Cautery Pad Placement: If Other, detail: ESU Number: Cut: Coagulation: Blend: Bipolar: SECTION NAME : 1/Intra Case Record -- PAGE : OR12B Special Equipment Special Equipment Used: EYE Eye Microscope MARIIA [employer] PHACO Phaco Machine Comment: provided by [employer] provided by [employer] Notes: Thermal Unit: Temperature: N/A SECTION NAME : 1/Intra Case Record -- PAGE : OR12B Tourniquet 2 Tourniquet #2 Site: NONE None Pressure (mm Hg): Tourniquet Letter: Tourniquet Padded: Tourniquet Applied By: Patient Blood Pressure: #2 Inflated: #2 Deflated: Notify Surgeon After 60 Minutes-Time: After 1 Hour, Notify Surgeon Every 30 Min-Time: SECTION NAME : 1/Intra Case Record -- PAGE : OR13A Tourniquet 1 Tourniqet #1 Site NONE None Pressure (mm Hg): Tourniquet Letter: Tourniquet Applied By: Patient Blood Pressure: #1 Inflated: #1 Deflated: Notify Surgeon After 60 Minutes-Time: After 1 Hour, Notify Surgeon Every 30 Min- Time: Notes: SECTION NAME : 1/IntraOp Case Record -- PAGE : OR14A Drains Tube /Drain/ Catheter: Size: Location: N N Inserted By (if applicable): OR Drainage Detail: Notes: SECTION NAME : 1/IntraOp Case Record -- PAGE : ORLisa Packing Packing: NONE None Site: SECTION NAME : 1/IntraOp Case Record -- PAGE : OR15A Closing PreOp Diagnosis: LEFT EYE CATARACT Post Op Diagnosis: Same Operation: LEFT EYE phacoemulsification of cataract with intraocular lens implant Notes: SECTION NAME : 1/IntraOp Case Record -- PAGE : OR15B Dressing Evaluate PostOp Skin: Y Post Op [...] Up X2 OR Pt Discharge To: [facility] Day Care Room: : [...] #: Serial #: Reference # Location: 1 [id number] RIGHT EYE # Senior Backup Administrator: Date: Wasted: 10/10/2020 Notes: Lan Lens SECTION NAME : 1/IntraOp Case Record -- PAGE : OR22A Tissue Log A Smoking Pipes Cleaner From Lab to OR: Tissue Description Tissue [...] Delivery Time: Sex: Delivery Assistance: Notes: [facility] Document Id: [id number] Op Note - Jaskaran Pederson, MEDICAID BILLER - 07/24/2016 11:05 AM CDT ANES, Phase [...] PEDERSON CRNA On: 07/24/2016 11:06 AM Source: [employer] Document Id: [id number] Op Note - Jaskaran Pederson CRNA - [...] Once. ophthalmic irrigation, intraocular: 500 mL, Irrigation, CHAIR CAR DRIVER. phenylephrine ophthalmic: 1 drop(s), Eye(Operative), PREOP. prednisoLONE [...] PEDERSON CRNA On: 07/24/2016 09:41 AM Source: [facility] [employer] Document Id: [id number] documented in this encounter Miscellaneous Notes Miscellaneous - Michelle Tate, R.N. - 07/24/2016 11:35 AM CDT Adult Postprocedure [...] TATE RN - 07/24/2016 11:35 CDT Source: [employer] Document Id: [id number] CDT!92 Miscellaneous - Cory, Historical Provider Ser - 07/24/2016 11:35 AM CDT Coding Summary-Paper Based CODING DATE: 07/29/2016 FINAL [facility] STATUS: * Discharged to Home or Self Care PAYOR: Medicare APC DESCRIPTION 5491 Level 1 Intraocular Procedures ADMIT DX: REASON FOR VISIT DX: FINAL DX: PRINCIPAL: H26.9 Unspecified cataract SECONDARY: PYMT PROC APC STAT DESCRIPTION DOCTOR NAME DATE 44390 5491 J1 CATARACT REMOVAL BERTO MONCADA MD 07/24/2016 [...] FAGAN Date Saved: 07/29/2016 03:03 pm Source: [employer] Document Id: [id number] Miscellaneous - Michelle Tate, R.N. - 07/24/2016 [...] Warm Pain Symptoms : Yes MICHELLE TATE - 07/24/2016 11:07 CDT Pain Scale Pain Scale Verbal 0-10 : Open MICHELLE TATE RN - 07/24/2016 11:07 CDT Pain Pain Assessment Grid Pain 1 Location : Eye Laterality : Left Intensity : 2 Acceptable Intensity : 5 MICHELLE TATE - 07/24/2016 11:07 CDT Respiratory Respiratory Patient Stated Symptoms : None MICHELLE TATE - 07/24/2016 11:07 CDT GI/ Nausea Symptoms [...] saline back up bag MICHELLE TATE RN 07/24/2016 11:07 CDT MICHELLE TATE RN 07/24/2016 11:07 CDT I&O Oral Intake : 30 mL (Comment: tolerating sips of water [MICHELLE TATE RN - 07/24/2016 11:07 CDT] ) MICHELLE TATE RN 07/24/2016 11:07 CDT Nutrition Morning Snack : 50 % (Comment: blueberry muffin [MICHELLE TATE RN - 07/24/2016 11:07 CDT] ) MICHELLE TATE RN - 07/24/2016 11:07 CDT Activity Patient Position : High Viveros's MICHELLE TATE RN - 07/24/2016 11:07 CDT Source: [employer] Document Id: [id number] CDT!71 Miscellaneous - Michelle Tate R.N. - 07/24/2016 8:45 AM CDT Height/Length Height/Length Entered On: 07/24/2016 8:46 CDT Performed On: 07/24/2016 8:45 CDT by MICHELLE TATE RN Height/Length Height : 65.7 cm MICHELLE TATE RN - 07/24/2016 8:45 CDT Source: [employer] Document Id: [id number] CDT!3 documented in this encounter Plan of Treatment Not on filedocumented as of this encounter Visit Diagnoses Not on filedocumented in this encounter
--- OUTSIDE RECORDS SUMMARY | 2022-03-21 10:22 | XMS_ITS | Encounter Summary ---
:1935 Author Organization [facility] Address [address] [place] [address] Care Team Providers Name Role Phone Unavailable Primary Care Provider Unavailable Encounter Details Date Type Department Care Team Description 02/04/2015 [facility] Diamond Whipple APRN, C.N.P. [address] [place] [phone] (Wo rk) Social History Tobacco Use Types [...] geriatric Take 1 tablet by 0 01/30/2015 stcnwmvs-xsxx-mlyv tablet mouth daily. simvastatin (ZOCOR) 10 mg Take 10 mg by 0 015 tablet mouth at bedtime. raNITIdine (ZANTAC) 150 mg 150 mg. 0 5 07/23/2020 tablet documented as of this encounter Progress Notes Shannan Whipple APRN, C.N.P. - 02/04/2015 11:50 AM CDT [id number] CHIEF COMPLAINT/REASON FOR VISIT Cough. HISTORY OF [...] above. PRIMARY CARE PROVIDER: Dr. Ed Belle, [facility]. She did not receive her flu shot [...] the details of today's visit. Shannan Whipple APRN C.N.P./pos Electronically Signed By: SHANNAN WHIPPLE DELICATESSEN DEPARTMENT MANAGER On: 02/09/2015 08:17 AM Modified by and Electronically Signed by: SHANNAN WHIPPLE DELICATESSEN DEPARTMENT MANAGER On: 02/09/2015 08:17 AM Source: [facility] MHSDOLBEYNONRADSYS Document Id: [id number] documented in this encounter Nursing Notes Shannan Whipple APRN, C.N.P. - 02/04/2015 12:18 PM CDT Ambulatory Patient [...] and be dangerous to your health. ?? Gnzy-uaf-pfxdzhj remedies won't shorten the length of the [...] better with fever medication ?? Convulsion ?? [id number] [facility] [address] [place] [address], [place] [address]. All rights reserved. This information is not intended as a substitute for professional medical care. Always follow your healthcare professional's instructions. Source: [facility] POWERCHART Document Id: [id number] Shannan Whipple APRN, C.N.P. - 02/04/2015 12:18 PM CDT Ambulatory Patient Education The following Patient Education Materials have been given to the patient: Patient Education Materials: Source: [facility] POWERCHART Document Id: [id number] documented in this encounter Miscellaneous Notes Miscellaneous - Andree Aquino C.M.A. - 02/04/2015 11:57 AM CDT Adult Nurse Research Intake/History Adult Nurse Research Intake/History Entered On: 02/04/2015 12:00 CDT Performed [...] Preferred Communication Mode : Verbal Languages : Namibian Is Patient Female and 13-50 no hysterectomy : No ANDREE AQUINO - 02/04/2015 11:57 CDT Subjective Pain Symptoms : Yes ANDREE AQUINO - 02/04/2015 11:57 CDT Pain Scale Pain Scale Verbal 0-10 : Open ANDREE AQUINO 02/04/2015 11:57 CDT Pain Pain Assessment Grid Pain 1 Location : Throat ANDREE AQUINO 02/04/2015 11:57 CDT Dependent Habits Tobacco Use/Currently Using : No Exposure to Tobacco Smoke : Care provider denies smoking in home Smoking Status : Never smoker ANDREE AQUINO - 02/04/2015 11:57 CDT Caffeine Use Grid Caffeine Use : Current Type : Coffee, Soft drinks, Tea Frequency : Daily Amount : 1 cup ANDREE AQUINO - 02/04/2015 11:57 CDT Source: [facility] IPPLEX Document Id: [id number] CDT!37 documented in this encounter Plan of Treatment Not on filedocumented as of this encounter Visit Diagnoses Not on filedocumented in this encounter
--- OUTSIDE RECORDS SUMMARY | 2022-03-21 10:23 | XMS_ITS | Encounter Summary ---
:1935 Author Organization [facility] Address [address] [place] [id number] Care Team Providers Name Role Phone Unavailable Primary Care Provider Unavailable Encounter Details Date Type Department Care Team Description 02/20/2011 Hospital Encounter HX NO MAPPING Vinnie Belle Jr., M.D. [address] [place], [place] [address] (Wo rk) Social History Tobacco Use Types Packs/Day Years Used Date Smoking Tobacco: Never Assessed Sex Assigned at Date Recorded Not on file documented as of this encounter Plan of Treatment Not on filedocumented as of this encounter Procedures Procedure Name Priority Date/Time Associated Diagnosis Comme nts BI BREAST SCREENING Routine 02/20/2011 10:53 AM R esults for this BILATERAL GLOBAL TRANSPORTATION MANAGER procedure are i n the results section. documented in this encounter Results BI Breast Screening Bilateral (02/20/2011 10:53 AM GLOBAL TRANSPORTATION MANAGER) Anatomical Region Laterality Modality Breast Bilateral Mammography Specimen (Source) Anatomical Collection Method Collection Time Re ceived Time Location / / Volume Laterality 02/20/2011 10:53 AM GLOBAL TRANSPORTATION MANAGER Addenda Addendum by Provider, Kelechi Rosario 02/20/2011 10:53 AM GLOBAL TRANSPORTATION MANAGER RAD^^^MA MA MAMMO SCREENING W CADD 02/20/2011 10:53:00 Impressions 02/20/2011 11:22 AM GLOBAL TRANSPORTATION MANAGER 1. Benign findings only, ACR category 2. [...] ACR Code 2 Narrative 02/20/2011 11:22 AM GLOBAL TRANSPORTATION MANAGER Bilateral craniocaudal and oblique views of the [...] suspected palpable masses. ACR Code 2 Kendra WilsonTXenia(R)(CT), R.T.(R) IMG BI PROCEDU RES documented in this encounter Visit Diagnoses Not on filedocumented in this encounter
--- OUTSIDE RECORDS SUMMARY | 2022-03-21 10:23 | XMS_ITS | Encounter Summary ---
:1935 Author Organization [facility] Address [address] [place] [address] Care Team Providers Name Role Phone Unavailable Primary Care Provider Unavailable Encounter Details Date Type Department Care Team Description 03/19/2011 Hospital Encounter HX NO MAPPING Vinnie Belle Jr., M.D. [address] [place], [place] [address] (Wo rk) Social History [...] Result s for this WITHOUT IV CONTRAST IT SALES REPRESENTATIVE procedur e are in the results section. documented in this encounter Results MR Lumbar Spine without IV Contrast (03/19/2011 8:25 AM IT SALES REPRESENTATIVE) Anatomical Region Laterality Modality Lumbar Spine N/A Magnetic Resonance Specimen (Source) Anatomical Collection Method Collection Time Re ceived Time Location / / Volume Laterality 03/19/2011 8:25 AM IT SALES REPRESENTATIVE Addenda Addendum by Provider, Kelechi Rosario 03/19/2011 8:25 AM IT SALES REPRESENTATIVE RAD^^^MA MR LUMBAR SPINE WO CONTRAST 03/19/2011 08:25:00 Narrative 03/19/2011 10:21 AM IT SALES REPRESENTATIVE MRI Lumbar Spine without contrast ?? Clinical [...] stenosis. L2-3: There is minimal spinal canal royec l without neural foraminal stenosis. L3-4: There [...] at L4-L5 and L5-S1. Ashley Hernandez R.V.T., KeniaM.S. IMG MRI PROCEDURES documented in this encounter Visit Diagnoses Not on filedocumented in this encounter
--- OUTSIDE RECORDS SUMMARY | 2022-03-21 10:23 | XMS_ITS | Encounter Summary ---
:1935 Author Organization [facility] Address [address] [place] [address] Care Team Providers Name Role Phone Unavailable Primary Care Provider Unavailable Encounter Details Date Type Department Care Team Description 03/01/2014 Hospital Encounter HX [facility] Vinnie Aguilar Jr., M.D. [address] [place], [place] [address] (Wo rk) Social History Tobacco Use Types Packs/Day Years Used Date Smoking Tobacco: Never Assessed Sex Assigned at Date Recorded Not on file documented as of this encounter Plan of Treatment Not on filedocumented as of this encounter Procedures Procedure Name Priority Date/Time Associated Diagnosis Comme nts BI BREAST SCREENING Routine 03/01/2014 1:22 PM Re sults for this BILATERAL MUSIC THEORY PROFESSOR procedure are i n the results section. documented in this encounter Results BI Breast Screening Bilateral (03/01/2014 1:22 PM MUSIC THEORY PROFESSOR) Anatomical Region Laterality Modality Breast Bilateral Mammography Specimen (Source) Anatomical Collection Method Collection Time Re ceived Time Location / / Volume Laterality 03/01/2014 1:22 PM MUSIC THEORY PROFESSOR Addenda Addendum by Provider, Kelechi Rosario 03/01/2014 1:22 PM MUSIC THEORY PROFESSOR RAD^^^LUIZ DEE Mammo Screening w/ CADD 03/01/2014 13:22:23 Impressions 03/01/2014 2:00 PM MUSIC THEORY PROFESSOR BI-RADS 1. ??NEGATIVE. RECOMMENDATION: Routine yearly mammogram . BREAST MAMMOGRAPHY - GENERAL OBSERVATION S: ??The false negative rate for mammography is 15-20%. ??It cannot b e used, therefore, to replace the regular physical examination. ??A no rmal or noncontributory mammogram report also should not deter t he aggressive further workup of any suspected palpable masses. Narrative 03/01/2014 2:00 PM MUSIC THEORY PROFESSOR Bilateral digital screening Mammography with computer-aided detection, [...]
--- OUTSIDE RECORDS SUMMARY | 2022-03-21 10:23 | XMS_ITS | Encounter Summary ---
:1935 Author Organization [facility] Address [address] [place] [address] Care Team Providers Name Role Phone Unavailable Primary Care Provider Unavailable Encounter Details Date Type Department Care Team Description 02/28/2013 Hospital Encounter HX [facility] Vinnie Aguilar Jr., M.D. [address] [place], [place] [address] (Wo rk) Social History Tobacco Use Types Packs/Day Years Used Date Smoking Tobacco: Never Assessed Sex Assigned at Date Recorded Not on file documented as of this encounter Plan of Treatment Not on filedocumented as of this encounter Procedures Procedure Name Priority Date/Time Associated Diagnosis Comme nts BI BREAST SCREENING Routine 02/28/2013 2:00 PM Re sults for this BILATERAL SUBSURFACE AUGMENTEE OPERATOR procedure are i n the results section. documented in this encounter Results BI Breast Screening Bilateral (02/28/2013 2:00 PM SUBSURFACE AUGMENTEE OPERATOR) Anatomical Region Laterality Modality Breast Bilateral Mammography Specimen (Source) Anatomical Collection Method Collection Time Re ceived Time Location / / Volume Laterality 02/28/2013 2:00 PM SUBSURFACE AUGMENTEE OPERATOR Addenda Addendum by Provider, Kelechi Rosario o n 02/28/2013 2:00 PM SUBSURFACE AUGMENTEE OPERATOR RAD^^^LUIZ DEE Mammo Screening w/ CADD 02/28/2013 14:00:00 Impressions 02/28/2013 2:54 PM SUBSURFACE AUGMENTEE OPERATOR 1. Stable examination with no mammograph ic [...] suspected palpable masses. Narrative 02/28/2013 2:54 PM SUBSURFACE AUGMENTEE OPERATOR Bilateral craniocaudal and oblique views of the [...]
--- OUTSIDE RECORDS SUMMARY | 2022-03-21 10:23 | XMS_ITS | Encounter Summary ---
:1935 Author Organization [facility] Address [address] [place] [address] Care Team Providers Name Role Phone Unavailable Primary Care Provider Unavailable Encounter Details Date Type Department Care Team Description 12/09/2011 Hospital Encounter HX NO MAPPING Eric Gaffney M.D. [address] [place], [place] [phone] (Wo rk) Social History [...] p ost void residual. Ashley Hernandez R.V.T., PauletteSXenia IMG US PROCEDURES documented in this encounter Visit Diagnoses Not on filedocumented in this encounter
--- OUTSIDE RECORDS SUMMARY | 2022-03-21 10:23 | XMS_ITS | Encounter Summary ---
:1935 Author Organization [facility] Address [address] [place] [address] Care Team Providers Name Role Phone Unavailable Primary Care Provider Unavailable Encounter Details Date Type Department Care Team Description 05/22/2013 Hospital Encounter HX [facility] ED Guido Rao M.D. [address] [place] [address] [phone] (Wo rk) Social History Tobacco Use Types Packs/Day Years Used Date Smoking Tobacco: Never Assessed Sex Assigned at Date Recorded Not on file documented as of this encounter Last Filed Vital Signs Vital Sign Reading Time Taken Comments Blood Pressure 130/61 05/22/2013 8:30 PM [employer] Pulse - - Temperature - - Respiratory Rate 16 05/22/2013 8:30 PM [employer] Oxygen Saturation - - Inhaled Oxygen Concentration - - Weight - - Height 170 cm (5' 6.93) 05/22/2013 7:50 PM [employer] Body Mass Index - - documented in this encounter Discharge Summaries Elsi Mantilla, VICKIE, C.N.P., M.S.N. - 05/22/2013 8:53 PM CST ED Discharge Instructions [facility] [address] [place] [address] Name: KAROLINE NUÑEZ Date of : 1935 12:00 AM Visit Date: 05/22/2013 7:41 PM [facility] Number: [id number] Address: [address] [place] [phone] Primary Care Provider: DARRICK MENDES MD IMPORTANT: [facility] in [place] would like to thank you for allowing us to assistyou with your healthcare needs. The following includes patient education materials and information regarding your injury/illness. Chief Complaint: Chest pain; CHEST PAIN Follow-Up Instructions: With: Address: When: DARRICK MENDES [address] [place] [phone] Business (1) Within 5 - 7 days Comments: as needed if symptoms return to discuss further evaluation Patient Education Materials: [id number] GERD (Adult) The esophagus is a tube [...] afford the prescribed medication, you can try velg-ajh-hykmpuf acid blockers, such as Pepcid AC, Tagamet, [...] as directed by your healthcare provider ?? [phone] George Fish, [address] [place] [address], [place] [address]. All rights reserved. This information is not [...] document has images extracted. Please consider using [employer] for all your patient education needs. Source: [employer] Document Id: [id number] [employer] Elsi Mantilla APRN, C.N.P., M.S.N. - 05/22/2013 8:53 PM CST ED Depart Summary [facility] Emergency Department Clinical Discharge Summary PERSON INFORMATION Name KAROLINE NUÑEZ Age 77 Years 1935 12:00 AM Sex Female Language Belgian PCP DARRICK MENDES MD Marital Status Visit Id Visit Reason Chest pain; CHEST PAIN Specialty Enc Type Emergency Med Service Emergency Medicine Referred by Track Group MAQN ED Discharge 05/22/2013 8:45 PM Tracking Id [id number] Checkout 05/22/2013 8:45 PM Checkin 05/22/2013 7:41 PM Acuity 3 -Urgent Dispo Type * Discharged to Home or Self Care Arrival 05/22/2013 7:41 PM Reg Status LOS 000 01:04 Address: [address] [place] [phone] Comment: PROVIDER INFORMATION Provider Role Provider Contact Time GUIDO RAO MD ED Provider 05/22/13 20:33 DIAGNOSIS Comment: PATIENT EDUCATION INFORMATION Instructions: ESOPHAGEAL REFLUX (Adult) Follow up: With: Address: [place]: DARRICK MENDES [address] [place] [phone] [facility] (1) Within 5 - 7 days Comments: as needed if symptoms return to discuss further evaluation [facility] Document Id: [id number] [employer] documented in this encounter ED Notes Elsi Mantilla APRN, C.N.P., M.S.N. - 05/22/2013 8:45 PM CST ED Disposition Summary ED Disposition Summary Entered On: 05/22/2013 20:51 [employer] Performed On: 05/22/2013 20:45 [employer] by ELSI MANTILLA RN ED Disposition Summary Accompanied By : Daughter Mode of Discharge : Ambulatory Transportation : Private vehicle Printed Discharge Instructions Given to Patient : Yes Patient Status at Discharge from ED : Improved Comment : Discussed new medication Prilosec ESLI MANTILLA RN - 05/22/2013 20:51 [employer] Source: [employer] Document Id: [id number] [employer]!8 [employer] Elsi Mantilla APRN, C.N.P., M.S.N. - 05/22/2013 8:45 PM CST ED Education ED Education Entered On: 05/22/2013 20:52 [employer] Performed On: 05/22/2013 20:45 [employer] by ELSI MANTILLA RN Education ED Education Grid Topics : Activity limitations/expectations, Diagnostic results, Discharge instructions/Medication list, Disease process, Importance of follow-up visits, Nutrition/Diet, Pain management, When to call health care provider Individuals Taught : Patient, Daughter Barriers to Learning : None evident Teaching Method : Explanation, Printed materials Teaching Evaluation : Verbalizes understanding ELSI MANTILLA RN - 05/22/2013 20:51 [employer] Source: [employer] Document Id: [id number] [employer]!9 [employer] Elsi Mantilla APRN, C.N.P., M.S.N. - 05/22/2013 8:40 PM CST ED Treatments and Procedures ED Treatments and Procedures Entered On: 05/22/2013 20:51 [employer] Performed On: 05/22/2013 20:40 [employer] by ELSI MANTILLA field services manager Monitoring Monitoring Lead Scribing Machine Operator : Discontinued ELSI MANTILLA RN - 05/22/2013 20:51 [employer] Source: [facility] POWERCHART Document Id: [id number] [employer]!3 [employer] Guido Rao M.D. - 05/22/2013 8:33 PM CST Chest pain Patient: KAROLINE NUÑEZ Age: 77 years Sex: Female : 1935 Author: GUIDO RAO MD Attachments: None Basic Information Time seen: Immediately upon arrival. History source: Patient, daughter. Arrival mode: Private vehicle. History limitation: None. Additional information: Chief Complaint from Nursing Triage Note : Chief Complaint Description 05/22/2013 19:50 [employer] Chief Complaint Description Patient reports chest and [...] Examination Vital Signs: Vital Signs 05/22/2013 19:50 [employer] Temperature Core 37.0 DegC Apical Heart Rate 78 /min Respiratory Rate 16 /min SpO2 97 % Systolic Blood Pressure 161 mmHg >HHI Diastolic Blood Pressure 70 mmHg Mean Arterial Pressure 100 mmHg BP Location Right upper , Measurements 05/22/2013 19:50 [employer] Height 170 cm Height Source Stated Dosing Weight 61.00 kg NA Estimated Weight 61 kg , SpO2 05/22/2013 19:50 [employer] SpO2 97 % . General: Alert and [...] Electrocardiogram:Normal sinus rhythm, No ST-T changes, normal CT & QRS intervals, EP Interp. Results review:Lab results : Lab View 05/22/2013 19:55 [employer] Hgb 13.1 g/dL Hct 38.3 % WBC 7.3 x10(9)/L RBC 4.43 x10(12)/L MCV 86.5 fL RDW 14.6 % Platelet 249 x10(9)/L Neutro Absolute 4.21 10(9)/L Lymph Absolute 2.16 x10(9)/L Kingfisher Absolute 0.70 x10(9)/L Eos Absolute <0.50 x10(9)/L [...] Time 05/22/2013 20:34:00, to home. Prescriptions: Prescription [facility]: PriLOSEC 10 mg oral delayed release [...] Discharge ED Patient (Order Processing): 05/22/2013 20:36 [employer], Once. Electronically Signed By: GUIDO RAO MD On: 05/22/2013 08:49 PM Modified by and Electronically Signed by: GUIDO RAO MD On: 05/22/2013 08:49 PM Source: [facility] POWERCHART Document Id: [id number]} [employer] Elsi Mantilla APRN, C.N.P., M.S.N. - 05/22/2013 8:30 PM CST ED Nurse Reassess ED Nurse Reassess Entered On: 05/22/2013 20:51 [employer] Performed On: 05/22/2013 20:30 [employer] by ELSI MANTILLA RN Pain Assessment Pain Symptoms : No ELSI MANTILLA RN - 05/22/2013 20:50 [employer] Resp Reassess Respiratory Patient Stated Symptoms : None Distress : None Airway : Patent Respiratory Pattern : Regular Respirations : Unlabored Cough : None ELSI MANTILLA RN - 05/22/2013 20:50 [employer] CV Reassess CV Patient Stated Symptoms : None Heart Rhythm : Regular Monitoring Lead : II, V1/MCL1 Cardiac Rhythm : Sinus rhythm, PAC Ectopy Frequency : Rare (1-3/min) ELSI MANTILLA RN - 05/22/2013 20:50 [employer] Neuro Reassess Last Well Time Known : Not applicable Orientation : Oriented x 3 Characteristics of Speech : Clear Level of Consciousness : Alert Neuro Patient Stated Symptoms : None Gait : Steady ELSI MANTILLA RN - 05/22/2013 20:50 [employer] Marine Coma Eye Opening Response [place] : Spontaneously Best Verbal Response [place] : Oriented Best Motor Response [place] : Obeys simple commands [place] Coma Score : 15 ELSI MANTILLA RN - 05/22/2013 20:50 [employer] GI Reassess GI Patient Stated Symptoms : Belching ELSI MANTILLA RN - 05/22/2013 20:50 [employer] /OB Reassess Patient Stated Symptoms : None ELSI MANTILLA RN - 05/22/2013 20:50 [employer] [facility] Document Id: [id number] [employer]!32 [employer] Elsi Mantilla APRN, C.N.P., M.S.N. - 05/22/2013 7:50 PM CST ED Primary Assessment Document Has Been Updated ED Primary Assessment Entered On: 05/22/2013 19:59 [employer] Performed On: 05/22/2013 19:50 [employer] by ELSI MANTILLA RN Reason For Visit (As Of: 05/22/2013 19:59:11 [employer]) Diagnoses(Active) Chest pain Date: 05/22/2013 ; Diagnosis Type: Reason For Visit ; Confirmation: Complaint of ; Clinical Dx: Chest pain ; Classification: Medical ; Clinical Service: Emergency medicine ; Code: PNED ; Probability: 0 ; Diagnosis Code: [id number] Triage Chief Complaint Description : Patient reports chest and back pain starting at about 1715 this evening following supper. Now the pain is gone. Frequent belching. Information Given By : Patient Accompanied By : Daughter Mode of Arrival ED : Private vehicle Track : Medical Languages : Belgian Vital Signs Assessed : Yes GCS Assessed : Yes Treatments Prior to Arrival : None ANNALEEISABELFLORENTINO Bolton RN - 05/22/2013 19:50 [employer] Vital Signs Temperature Core : 37.0 DegC(Converted [...] lb ELSI MANTILLA RN - 05/22/2013 19:50 [employer] Marine Coma Eye Opening Response [place] : Spontaneously Best Verbal Response [place] : Oriented Best Motor Response Marine : Obeys simple commands [place] Coma Score : 15 ELSI MANTILLA RN - 05/22/2013 19:50 [employer] Pain Assessment Pain Symptoms : Yes ANNALEE ELSI M RN - 05/22/2013 19:50 [employer] Pain Pain Assessment Grid Pain 1 Pain 2 Location : Chest (Comment: Lower, strtching across chest below breasts [ELSI MANTILLA RN - 05/22/2013 19:50 [employer]] ) Upper back (Comment: Central [ELSI MANTILLA RN - 05/22/2013 19:50 [employer]] ) Intensity : 0 0 Comments (Comment: 8/10 initially and now ceased [ELSI MANTILLA RN - 05/22/2013 19:50 [employer]] ) (Comment: Was a /10 initially and now ceased [ELSI MANTILLA RN - 05/22/2013 19:50 [employer]] ) ELSI MANTILLA RN - 05/22/2013 19:50 [employer] ELSI MANTILLA RN 05/22/2013 19:50 [employer] JOANA JOANA Level 1 : No JOANA Level 2 : Yes ELSI MANTILLA RN - 05/22/2013 19:50 [employer] DCP GENERIC CODE Tracking Acuity : 3 -Urgent Tracking Group : MAQN ED ELSI MANTILLA 05/22/2013 19:50 [employer] Allergy (As Of: 05/22/2013 19:59:12 [employer]) Allergies (Active) zinc acetate containing compounds Estimated Onset Date: Unspecified ; Reactions: rash ; Created By: GAGAN TRAN; Reaction Status: Active ; Category: Drug ; Substance: zinc acetate containing compounds ; Type: Allergy ; Updated By: GAGAN TRAN; Reviewed Date: 05/22/2013 19:50 [employer] ID Screen Drug Resistant Organism : No ELSI MANTILLA 05/22/2013 19:50 [employer] TB Symptoms Grid Bloody Sputum : No Fatigue : No Fever : No Loss of Appetite : No Night Sweats : No Persistent Cough Greater Than 3 Weeks : No Weight Loss : No ELSI MANTILLA Hoang 05/22/2013 19:50 [employer] Respiratory Airway : Patent Respirations : Unlabored Respiratory Pattern : Regular Oxygen Therapy : Room air Respiratory Detailed Assessment : Yes ELSI MANTILLA Hoang 05/22/2013 19:50 [employer] Resp Detailed Respiratory Patient Stated Symptoms : None Distress : None Cough : None ELSI MANTILLA Hoang 05/22/2013 19:50 [employer] Cardiovascular Heart Rhythm : Regular Skin Color : Bruning Skin Description : Normal Skin Temperature : Warm Cardiovascular Detailed Assessment : Yes Monitoring Lead : II, V1/MCL1 Monitoring Lead Scribing Machine Operator : Initiated ELSI MANTILLA Hoang 05/22/2013 19:50 [employer] CV Detailed CV Patient Stated Symptoms : Chest pain Nail Bed Color : Bruning Capillary Refill : Less than 2 seconds Cardiac Rhythm : Sinus rhythm Ectopy Frequency : None ELSI MANTILLA 05/22/2013 19:50 [employer] Neurological Last Well Time Known : Not applicable Level of Consciousness : Alert Orientation : Oriented x 3 Characteristics of Speech : Clear Neuro Patient Stated Symptoms : None Gait : Steady ELSI MANTILLA 05/22/2013 19:50 [employer] ED Psychosocial Affect/Behavior : Calm, Cooperative, Appropriate Domestic Abuse Concerns : None ELSI MANTILLA Hoang 05/22/2013 19:50 [employer] Gastrointestinal Nutrition ED : Adequate GI Detailed Assessment : Yes ELSI MANTILLA Hoang 05/22/2013 19:50 [employer] GI Detailed GI Patient Stated Symptoms : Belching GI Note : Patient had nausea and vomiting with pain initially. Vomiting x4, dark brown. Patient has been belching frequently and feels gassy. Stated she ate peanuts today and that can make her gassy. ELSI MANTILLA RN - 05/22/2013 19:50 [employer] /OB Assessment Patient Stated Symptoms : None ELSI MANTILLA RN - 05/22/2013 19:50 [employer] Musculoskeletal Fall Prevention Education Provided : ELSI WILKERSON RN - 05/22/2013 19:50 [employer] Social Habits Tobacco Use/Currently Using : No Exposure to Tobacco Smoke : Care provider denies smoking in home Smoking Status : Former smoker ELSI MANTILLA RN - 05/22/2013 19:50 [employer] Source: [facility] [employer] Document Id: [id number] [employer]!105 [employer] documented in this encounter Miscellaneous Notes Miscellaneous - Elsi Mantilla APRN, C.N.PXenia, M.S.N. - 05/22/2013 8:45 PM [employer] Valuables/Belongings Valuables/Belongings Entered On: 05/22/2013 20:52 [employer] Performed On: 05/22/2013 20:45 [employer] by ELSI MANTILLA RN Valuables/Belongings Belongings Sent Home With : All belongings sent with patient Home Medication Disposition : None brought in with patient ELSI MANTILLA RN - 05/22/2013 20:52 [employer] Source: [facility] [employer] Document Id: [id number] [employer]!4 [employer] Miscellaneous - Elsi Mantilla APRN, C.N.PXenia, M.S.N. - 05/22/2013 7:41 PM [employer] Facility Charge Ticket 2.0 11.0 DX Facility Charge Ticket 2.0 11.0 DX Entered On: 05/22/2013 20:52 [employer] Performed On: 05/22/2013 19:41 [employer] by ELSI MANTILLA RN Facility Charge Ticket [...] Nursing Notes ED Primary Assessment,05/22/13 19:50,ELSI MANTILLA BOTTLE BOOTH ATTENDANT Nurse Reassess,05/22/13 20:30,ELSI MANTILLA RN [facility] Nursing Assessment : Triage and 1-2 nursing assessments [facility] Disposition : Discharge Disposition RTF : discharge [facility] Total Points with Diagnosis Control : 13 [facility] Visit Level : 69677 Level 5 Treatments Prior to Arrival : None ELSI MANTILLA RN - 05/22/2013 20:52 [employer] Source: [facility] POWERCHART Document Id: [id number] [employer]!19 [employer] documented in this encounter Plan of Treatment Not on filedocumented as of this encounter Procedures Procedure Name Priority Date/Time Associated Diagnosis Comme nts DX CHEST 1 VIEW Routine 05/22/2013 8:24 PM Result s for this [employer] procedure are i n the results section. AUTOMATED Routine 05/22/2013 7:55 PM Results f or this DIFFERENTIAL, B [employer] procedure ar e in the results section. CBC WITH Routine 05/22/2013 7:55 PM Results f or this DIFFERENTIAL, B [employer] procedure ar e in the results section. TROPONIN T, 5TH Routine 05/22/2013 7:55 PM Result s for this GEN, P [employer] procedure are i n the results section. BASIC METABOLIC Routine 05/22/2013 7:55 PM Result s for this PANEL, S/P [employer] procedure are i n the results section. ECG Routine 05/22/2013 7:50 PM Results f or this [employer] procedure are i n the results section. documented in this encounter Results DX Chest 1 View (05/22/2013 8:24 PM [employer]) Anatomical Region Laterality Modality Chest N/A Radiographic Imaging Specimen (Source) Anatomical Collection Method Collection Time Re ceived Time Location / / Volume Laterality 05/22/2013 8:24 PM [employer] Addenda Addendum by Provider, Kelechi Rosario o desiree 05/22/2013 8:24 PM [employer] RAD^^^MA XR Chest 1 view portable 05/22/2013 20:24:00 Impressions 05/23/2013 7:20 AM [employer] No active cardiopulmonary disease. 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 Narrative 05/23/2013 7:20 AM [employer] EXAM: XR Chest 1 view portable INDICATION: [...] GING PROCEDURES Automated Differential (05/22/2013 7:55 PM [employer]) athologist Signature Absolute 4.21 1.70 - POWERCHART Neutrophils 7.00 109L Lymphocytes 2.16 0.90 - POWERCHART 2.90 X109L Monocytes 0.70 0.30 - POWERCHART 0.90 X109L Eosinophils <0.50 0.05 - POWERCHART 0.50 X109L Absolute <0.50 0.00 - POWERCHART Basophil 0.30 X109L Specimen Anatomical Collection Method Collection Time Receive d Time (Source) Location / / Volume Laterality Blood 05/22/2013 7:55 PM 4 7:55 [employer] PM [employer] Guido Rao M.D. LAB BLOOD ADD-ON Performing Organization Address City/State/ZIP Code Phon e Number POWERCHART CBC with Differential (05/22/2013 7:55 PM [employer]) athologist Signature Leukocytes 7.3 3.5 - 10.5 POWERCHART X109L Erythrocytes 4.43 3.90 - POWERCHART 5.03 [id number] Hemoglobin 13.1 12.0 - POWERCHART 15.5 GDL Hematocrit 38.3 34.9 - POWERCHART 44.5 MCV 86.5 81.6 - POWERCHART 98.3 FL HX RDW 14.6 11.9 - POWERCHART 15.5 Platelet Count 249 150 - 450 POWERCHART X109L HXDifferential? Auto POWERCHART Specimen (Source) Anatomical Collection Method Collection Time Re ceived Time Location / / Volume Laterality Blood 05/22/2013 7:55 PM [employer] Guido Rao M.D. LAB BLOOD ADD-ON Performing Organization Address City/State/ZIP Code Phon e Number POWERCHART Troponin T (05/22/2013 7:55 PM [employer]) athologist Signature Troponin T, S <0.010 <=0.010 POWERCHART NGML Comment: Values > or = 0.01 ng/mL have b een shown to have prognostic value. Specimen (Source) Anatomical Collection Method Collection Time Re ceived Time Location / / Volume Laterality Blood 05/22/2013 7:55 PM [employer] Guido Rao M.D. LAB BLOOD ADD-ON Performing Organization Address City/State/ZIP Code Phon e Number POWERCHART (ABNORMAL) BMP (Basic Metabolic Panel) (05/22/2013 7:55 PM [employer]) Analysis Performed At Patho logist Time Signature [...] / Volume Laterality Blood 05/22/2013 7:55 PM [employer] Guido Rao M.D. LAB BLOOD ADD-ON Performing Organization Address City/State/ZIP Code Phon e Number POWERCHART ECG 12 Lead (05/22/2013 7:50 PM [employer]) Specimen (Source) Anatomical Collection Method Collection Time Re ceived Time Location / / Volume Laterality 05/22/2013 7:50 PM [employer] [facility] - 05/22/2013 7:50 PM [employer] Test Reason : EKG Blood Pressure : [...] ECG ORDERABLES Performing Organization Address City/State/ZIP Code [facility] e Number [facility] [address] [place] [id number] documented in this encounter Visit Diagnoses Not on filedocumented in this encounter
--- OUTSIDE RECORDS SUMMARY | 2022-03-21 10:23 | XMS_ITS | Encounter Summary ---
:[address] [facility] Address [address] [place] [address] Care Team Providers Name Role Phone Unavailable Primary Care Provider Unavailable Encounter Details Date Type Department Care Team Description 02/23/2012 Hospital Encounter HX NO MAPPING Eric Gaffney M.D. [address] [place] [address] [phone] (Wo rk) Social History Tobacco Use Types Packs/Day Years Used Date Smoking Tobacco: Never Assessed Sex Assigned at Date Recorded Not on file documented as of this encounter Plan of Treatment Not on filedocumented as of this encounter Procedures Procedure Name Priority Date/Time Associated Diagnosis Comme nts BI BREAST SCREENING Routine 02/23/2012 8:08 AM Re sults for this BILATERAL NOTCHER procedure are i n the results section. documented in this encounter Results BI Breast Screening Bilateral (02/23/2012 8:08 AM NOTCHER) Anatomical Region Laterality Modality Breast Bilateral Mammography Specimen (Source) Anatomical Collection Method Collection Time Re ceived Time Location / / Volume Laterality 02/23/2012 8:08 AM NOTCHER Addenda Addendum by Provider, Kelechi Rosario 02/23/2012 8:08 AM NOTCHER RAD^^^MA MA MAMMO SCREENING W CADD 02/23/2012 08:08:00 Impressions 02/23/2012 8:23 AM NOTCHER BI-RADS 1. ??NEGATIVE. RECOMMENDATION: Routine yearly mammogram . BREAST MAMMOGRAPHY - GENERAL OBSERVATION S: ??The false negative rate for mammography is 15-20%. ??It cannot b e used, therefore, to replace the regular physical examination. ??A no rmal or noncontributory mammogram report also should not deter t he aggressive further workup of any suspected palpable masses. Narrative 02/23/2012 8:23 AM NOTCHER Bilateral digital screening Mammography with computer-aided detection, [...]
--- OUTSIDE RECORDS SUMMARY | 2022-03-21 10:23 | XMS_ITS | Encounter Summary ---
:1935 Author Organization [facility] Address [address] [place] [address] Care Team Providers Name Role Phone Unavailable Primary Care Provider Unavailable Encounter Details Date Type Department Care Team Description 10/19/2014 Hospital Encounter HX [facility] Lydia Casey M.D. [address] [place], [place] [address] (Wo rk) Social History Tobacco [...] 10/19/2014 11:08 PM CDT ED Discharge Instructions [facility] [address] [place] [address] Name: KAROLINE NUÑEZ Date of : 1935 12:00 AM Visit Date: 10/19/2014 5:11 PM [facility] Number: [id number] Address: [address] [place] [phone] Primary Care Provider: BRITNEY BALDWIN MD IMPORTANT: [facility] [place] would like to thank you for allowing [...] if you dont have one. Go to [email or web address] and click on Create Your Account. Then, follow the directions to complete the online form. Youll be asked for your [facility] number which you can find [...] ride home with a responsible constitution party. I, KRISTINAKAROLINE RUBIO YAN , or responsible constitution party have received this information and my questions have been answered. I have discussed any challenges I see with this plan with the nurse or physician. Patient Signature or Responsible Constitution Party/Relationship Date Time Provider Signature Date Time Source: [facility] POWERCHART Document Id: [id number] Pema Cox R.N. - 10/19/2014 11:08 PM CDT ED Depart Summary [facility] Emergency Department Clinical Discharge Summary PERSON INFORMATION Name KAROLINE NUÑEZ Age 78 Years 1935 12:00 AM Sex Female Language Iranian PCP BRITNEY BALDWIN MD Marital Status Visit Id Visit Reason Syncope/Near syncope; A FIB AND UTI Specialty Enc Type Emergency Med Service Emergency Medicine Referred by Track Group MAQN ED Discharge 10/19/2014 10:20 PM Tracking Id [id number] Checkout 10/19/2014 10:20 PM Checkin 10/19/2014 5:11 PM Acuity 2 -Emergent Dispo Type Admitted as Inpatient to this Hospital Arrival 10/19/2014 5:11 PM Reg Status LOS 000 05:09 Address: [address] [place] [phone] Comment: PROVIDER INFORMATION Provider Role Provider Contact Time JORDAN HOLBROOK MD ED Provider 10/19/14 17:21 JOSE REYES RN ED Nurse 10/19/14 17:40 PEMA COX LAND ACQUISITION MANAGER Nurse 10/19/14 19:09 DIAGNOSIS Chronic Renal Failure Stage IV GFR 15-29; Fibrillation Atrial Paroxysmal (PAF); Hypotension NOS; Urosepsis Comment: PATIENT EDUCATION INFORMATION Instructions: Follow up: Source: e994 Document Id: [id number] documented in this encounter ED Notes Pema [...] COX RN - 10/19/2014 23:05 CDT Source: e994 Document Id: [id number] CDT!10 Pema Cox R.N. - 10/19/2014 10:07 [...] Measures Response : Comfort level increased PEMA CXO RN - 10/19/2014 22:07 CDT CV Reassess CV Patient Stated Symptoms : None Cardiac Rhythm : Sinus rhythm PEMA COX RN - 10/19/2014 22:07 CDT Source: e994 Document Id: [id number] CDT!4 Pema Cox R.N. - 10/19/2014 9:22 [...] COX RN - 10/19/2014 21:22 CDT Source: e994 Document Id: [id number] CDT!5 Pema Cox R.N. - 10/19/2014 8:05 [...] COX RN - 10/19/2014 20:22 CDT Source: e994 Document Id: [id number] CDT!7 Pema Cox R.N. - 10/19/2014 7:10 [...] COX RN - 10/19/2014 19:10 CDT Source: e994 Document Id: [id number] CDT!19 Jose Reyes R.N. - 10/19/2014 6:11 PM CDT ED Nurse Reassess ED Nurse Reassess Entered On: 10/19/2014 18:11 CDT Performed On: 10/19/2014 18:11 CDT by JOSE REYES RN Pain Assessment Pain Symptoms : No JOSE REYES RN - 10/19/2014 18:11 CDT Comfort Measures Comfort Measures Grid Quiet Environment : Yes Relaxation : Yes JOSE REYES RN - 10/19/2014 18:11 CDT Source: [facility] POWERCHART Document Id: [id number] CDT!7 Jordan Holbrook M.D. - 10/19/2014 5:39 [...] Pressure 38 mmHg <LLOW BP Location Right [facility] 10/19/2014 20:11 CDT Apical Heart Rate 85 [...] General: Alert, moderate distress, anxious and ill-appearing. Marine coma scale: Total score: Total score: 15. [...] 20 mg, 4 mL, IV Push, Once. security monitor:Atrial fibrillation, Patient spontaneously converted to Sinus.. Results [...] % HI Lymph Manual 3.0 % LOW [place] Manual 4.0 % Eos Manual 2.0 % [...] hemodynamic management, Case review (primary care physician, esthetician and manager medical spa, family), Alternate history family. Treatment response: Spontaneous [...] HOLBROOK MD On: 10/19/2014 09:47 PM Source: [facility] ClickTale Document Id: {[id number]} Jose Reyes R.N. - 10/19/2014 5:32 PM [...] PNED ; Probability: 0 ; Diagnosis Code: [id number] Triage Chief Complaint Description : Doctor today [...] Private vehicle Track : Medical Languages : Iranian Vital Signs Assessed : Yes Treatments Prior to Arrival : None Is Patient Female and 13-50 no hysterectomy : No JOSE REYES 10/19/2014 17:32 CDT Vital Signs Temperature Core [...] JOANA Level 2 : Yes JOSE REYES RN 10/19/2014 17:32 CDT DCP GENERIC CODE Tracking Acuity : 2 -Emergent Tracking Group : JOSE [facility]ONG ED 10/19/2014 17:32 CDT Allergy (As Of: 10/19/2014 17:40:50 CDT) Allergies (Active) zinc acetate containing compounds Estimated Onset Date: Unspecified ; Reactions: rash ; Created By: GAGAN TRAN; Reaction Status: Active ; Category: Drug ; Substance: zinc acetate containing compounds ; Type: Allergy ; Updated By: GAGAN TRAN; Reviewed Date: 05/22/2013 20:33 BOX TENDER ID Screen Drug Resistant Organism : No Travel Within Last 21 Days : No Contact with someone with Ebola : No JOSE REYES 10/19/2014 17:32 CDT TB Symptoms Grid Bloody Sputum : No Fatigue : No Fever : No Loss of Appetite : No Night Sweats : No Persistent Cough Greater Than 3 Weeks : No Weight Loss : No JOSE REYES 10/19/2014 17:32 CDT Immunizations Immunizations Current : Yes Last Tetanus : < 5 years Pneumovac : Last 5 years Influenza : Last year JOSE REYES RN 10/19/2014 17:32 CDT Respiratory Airway : Patent Respirations : Unlabored Respiratory Pattern : Regular JOSE REYES RN 10/19/2014 17:32 CDT Cardiovascular Heart Rhythm : [...] REYES RN - 10/19/2014 17:32 CDT Source: e994 Document Id: [id number] CDT!79 Jose Reyes R.N. - 10/19/2014 5:30 [...] REYES RN - 10/19/2014 17:46 CDT Source: e994 Document Id: [id number] CDT!6 documented in this encounter Miscellaneous Notes Miscellaneous - Pema Cox R.N. - 10/19/2014 11:06 PM CDT Valuables/Belongings Valuables/Belongings Entered On: 10/19/2014 23:07 CDT Performed On: 10/19/2014 23:06 CDT by PEMA COX RN Valuables/Belongings Valuables/Belongings Grid Valuables with Family Clothes, Patient Valuables : Pants, Shirt, Undergarments Monetary Items : Odell PEMA COX RN - 10/19/2014 23:06 CDT Source: [facility] ClickTale Document Id: [id number] CDT!6 Miscellaneous - Conversion, Historical Provider Ser - 10/19/2014 10:20 PM CDT Coding Summary-Paper Based CODING DATE: 10/22/2014 FINAL [facility] STATUS: Admitted as Inpatient to this [...] MCCLAIN Date Saved: 10/22/2014 05:02 pm [facility]: [facility] Document Id: [id number] Miscellaneous - Pema Cox RXeniaN. - 10/19/2014 5:11 PM CDT Facility Charge [...] Nursing Notes ED Primary Assessment,10/19/14 17:32,JOSE REYES LAND ACQUISITION MANAGER Nurse Reassess,10/19/14 22:07,PEMA COX LAND ACQUISITION MANAGER Nurse Reassess,10/19/14 21:22,PEMA COX LAND ACQUISITION MANAGER Nurse Reassess,10/19/14 20:05,PEMA COX LAND ACQUISITION MANAGER Nurse Reassess,10/19/14 19:10,PEMA COX LAND ACQUISITION MANAGER Nurse Reassess,10/19/14 18:11,JOSE REYES RN Lynx Nursing Assessment : Triage and 6+ nursing assessments Lynx Disposition : Admit - ICU or transport via ALS/Air transport Disposition RTF : ICU Lynx Total Points with Diagnosis Control : 17 Lynx Visit Level : 79563 Level 5 Treatments Prior to Arrival : None PEMA COX RN - 10/19/2014 23:07 CDT Source: [facility] ClickTale Document Id: [id number] CDT!19 documented in this encounter Plan of [...] encounter Results Lactate (10/19/2014 9:27 PM CDT) P athologist Signature Lactate, P 0.6 0.5 - 2.2 POWERCHART MMOLL Specimen (Source) Anatomical Collection Method Collection Time Re ceived Time Location / / Volume Laterality Blood 10/19/2014 9:27 PM CDT Jordan Holbrook M.D. LAB BLOOD NON ADD-ON Performing Organization Address City/[facility]/ZIP Code Phon e Number POWERCHART Bacterial Culture, [...] - GENERAL O RDERABLES Performing Organization Address City/[facility]/ZIP Code Phon e Number POWERCHART Bacterial Culture, [...] - GENERAL O RDERABLES Performing Organization Address [facility]/ZIP Code Phon e Number POWERCHART HXUR % DYSMORPHIC [...] culture if indicated (10/19/2014 6:50 PM CDT) [facility] gist Method Time Signature HXUr Color Yellow Colorless POWERCHART Clarity Clear Clear POWERCHART Glucose Negative Negative POWERCHART MGDL HXBILIRUBIN Negative Negative POWERCHART Ketones, QL(U) Negative Negative POWERCHART MGDL Specific 1.010 POWERCHART [place], POCT, U HXBLOOD Small (A) Negative POWERCHART [...] M.D. LAB URINE ORDERABLES Performing Organization Address City/[facility] Phon e Number POWERCHART DX Chest 1 [...] ase demonstrated on this portable view. Merna Villaseñor(R)(CT), RXeniaTXenia(R)(M) IMG DIAGNOSTIC I MAGING PROCEDURES (ABNORMAL) HXMANUAL [...] X109L Erythrocytes 3.97 3.90 - POWERCHART 5.03 P1967E Hemoglobin 11.9 (L) 12.0 - POWERCHART 15.5 [...] Address City/State/ZIP Code Phon e Number POWERCHART Magnesium (10/19/2014 [...] MLMINSA eGFR Black/ 21.6 (L) >=60.0 POWERCHART [place] MLMINSA Bilirubin, Total, S 0.4 <=1.2 MGDL [...]
--- OUTSIDE RECORDS SUMMARY | 2022-03-21 10:23 | XMS_ITS | Encounter Summary ---
:1935 Author Organization [facility] Address [address] [place] [address] Care Team Providers Name Role Phone Unavailable Primary Care Provider Unavailable Encounter Details Date Type Department Care Team Description 03/24/[address] [facility] Butch Schulte M.D. Social History Tobacco Use Types Packs/Day Years Used Date Smoking Tobacco: Never Assessed Sex Assigned at Date Recorded Not on file documented as of this encounter Last Filed Vital Signs Vital Sign Reading Time Taken Comments Blood Pressure 118/50 03/24/2013 7:59 PM WATCH AND CLOCK MAKER AND REPAIRER Pulse 72 03/24/2013 7:59 PM WATCH AND CLOCK MAKER AND REPAIRER Temperature - - Respiratory Rate - - Oxygen Saturation - - Inhaled Oxygen Concentration - - Weight 59 kg (130 lb 1.1 oz) 03/24/2013 7:59 PM WATCH AND CLOCK MAKER AND REPAIRER Height 170 cm (5' 6.93) 03/24/2013 7:59 PM WATCH AND CLOCK MAKER AND REPAIRER Body Mass Index 20.42 03/24/2013 7:59 PM WATCH AND CLOCK MAKER AND REPAIRER documented in this encounter Progress Notes Ye Fonseca M.D. - 03/24/2013 7:49 PM CST [id number] CHIEF COMPLAINT/REASON FOR VISIT The patient is [...] FONSECA MD On: 03/27/2013 12:39 PM Source: [facility] MHSDOLBEYNONRADSYS Document Id: [id number] H AND CLOCK MAKER AND REPAIRER documented in this encounter Miscellaneous Notes Miscellaneous - Ye Fonseca M.D. - 03/24/2013 8:11 PM CST Ambulatory Patient Summary [facility] - [address] [address] Visit Information Name: KAROLINE HALEY [facility] Number: [id number] Current Date: 03/24/2013 20:11:03 [...] appointment detail needed. Your Goals/Additional instructions: Source: [facility] POWERCHART Document Id: [id number] H AND CLOCK MAKER AND REPAIRER Miscellaneous - Ye Fonseca M.D. - 03/24/2013 8:11 PM CST Ambulatory Depart Summary [facility] - [address] [address] Visit Information Name: KAROLINE HALEY [facility] Number: [id number] Visit Date: 03/24/2013 20:11:02 Attending Provider: YE FONSECA MD Primary Care Provider: DARRICK MENDES MD SUDHA KAROLINE has been given the following list [...] in case of emergency. Additional Information: Source: [facility] POWERCHART Document Id: [id number] H AND CLOCK MAKER AND REPAIRER Miscellaneous - Rosita Tran, C.M.A. - 03/24/2013 7:59 PM CST Adult Topline Beading Machine Tender Intake/History Adult Topline Beading Machine Tender Intake/History Entered On: 03/24/2013 20:04 WATCH AND CLOCK MAKER AND REPAIRER Performed On: 03/24/2013 19:59 WATCH AND CLOCK MAKER AND REPAIRER by ROSITA RTAN Intake Chief Complaint : R Great toe; [...] Mass Index : 20.42 kg/m2 ROSITA TRAN - 03/24/2013 19:59 WATCH AND CLOCK MAKER AND REPAIRER General Info Languages : Romanian ROSITA TRAN - 03/24/2013 19:59 WATCH AND CLOCK MAKER AND REPAIRER Subjective Pain Symptoms : Yes ROSITA TRAN 03/24/2013 19:59 WATCH AND CLOCK MAKER AND REPAIRER Pain Pain Assessment Grid Pain 1 Location : Toe (Comment: R great toe [ROSITA TRAN 03/24/2013 19:59 WATCH AND CLOCK MAKER AND REPAIRER] ) ROSITA TRAN - 03/24/2013 19:59 WATCH AND CLOCK MAKER AND REPAIRER Dependent Habits Tobacco Use/Currently Using : No Exposure to Tobacco Smoke : Care provider denies smoking in home Smoking Status : Never smoker ROSITA TRAN 03/24/2013 19:59 WATCH AND CLOCK MAKER AND REPAIRER Source: [facility] POWERDxNA Document Id: [id number] WATCH AND CLOCK MAKER AND REPAIRER!26 H AND CLOCK MAKER AND REPAIRER documented in this encounter Plan of Treatment Not on filedocumented as of this encounter Visit Diagnoses Not on filedocumented in this encounter
--- OUTSIDE RECORDS SUMMARY | 2022-03-21 10:23 | XMS_ITS | Encounter Summary ---
:1935 Author Organization [facility] Address [address] [place] [address] Care Team Providers Name Role Phone Unavailable Primary Care Provider Unavailable Encounter Details Date Type Department Care Team Description 10/19/2014 - [facility] Jose Daniel Cox 10/24/2014 Ke[place] [phone] (Wo rk) Social History Tobacco Use Types [...] Baldwin M.D. - 10/24/2014 12:00 AM CDT [id number] REVISION HISTORY 10/26/2014 at 3:14 pm - [...] BALDWIN MD On: 10/27/2014 07:34 AM Source: [facility]SDOLBEYNONRADSYS Document Id: [id number] documented in this encounter Progress Notes Jose Daniel Baldwin M.D. - 10/23/2014 12:00 AM CDT [id number] SUBJECTIVE: Patient wishes to shower. Will change [...] BALDWIN MD On: 10/24/2014 07:05 AM Source: [facility] Document Id: [id number] Jose Daniel Baldwin M.D. - 10/22/2014 12:00 AM CDT [id number] SUBJECTIVE: Patient complains of no new symptoms. [...] oral intake. Ambulate 3 times a day. 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 Monitor hypotension. Check urinalysis in the morning. Jose Daniel Baldwin M.D./pos Electronically Signed By: JOSE DANIEL BALDWIN MD On: 10/22/2014 11:43 AM Source: [facility] Document Id: [id number] Jose Daniel Baldwin M.D. - 10/21/2014 12:00 AM CDT [id number] SUBJECTIVE: Patient continues to improve with the [...] BALDWIN MD On: 10/21/2014 01:00 PM Source: [facility] Document Id: [id number] Jose Daniel Baldwin M.D. - 10/20/2014 12:00 AM CDT [id number] SUBJECTIVE: Patient feeling better, more color, no [...] BALDWIN MD On: 10/21/2014 07:53 AM Source: [facility] Document Id: [id number] documented in this encounter Procedure Notes Abraham [...] PETERSEN RN - 10/20/2014 11:35 CDT Source: [employer] Document Id: [id number] CDT!19 Abraham Petersen R.N. - 10/20/2014 11:10 [...] PETERSEN RN - 10/20/2014 11:10 CDT Source: [employer] Document Id: [id number] CDT!13 documented in this encounter Consult Notes [...] ALEJO PharmD - 10/20/2014 15:14 CDT Source: [employer] Document Id: [id number] CDT!7 Nan Abbott, R.Ph. - 10/19/2014 11:37 PM CDT Pharmacy Clinical Interventions Document Has Been Updated Pharmacy Clinical Interventions Entered On: 10/19/2014 23:39 CDT Performed On: 10/19/2014 23:37 CDT by NAN ABBOTT [facility] Clinical Interventions Intervention Task Status : Completed Intervention Status : Completed Pharmacist Intervention Time : 11-15 Minutes NAN PAZ - 10/21/2014 13:00 CDT Intervention Type Pharmacy : Dose Adjustment (Renal/Hepatic) Prescriber Response Pharmacy : Accepted NAN ABBOTT [facility] - 10/19/2014 23:37 CDT Pharmacy Additional Information [...] evaluate at that time. This is a [facility] patient, so rounding hospitalist does not cover, contact carbon capture power plant engineer MD for [facility] medical clinic. ADDM: SCr-2.7, CrCl~17. Spoke with Dr. Ed Baldwin and changed Lovenox to heparin 5000 units q12hrs. NAN PAZ - 10/21/2014 13:00 CDT Source: [facility] POWERCHART Document Id: [id number] CDT!6 documented in this encounter Nursing Notes Aleksandar Alas - 10/24/2014 7:17 AM CDT Cardiac Monitoring Cardiac Monitoring Entered On: 10/24/2014 8:27 CDT Performed On: 10/24/2014 7:17 CDT by ALEKSANDAR ALAS Cardiac Monitoring Monitoring Lead : II, V1/MCL1 Ventricular Rate : 79 bpm Ventricular Rhythm : Regular [place] Interval : 0.19 QRS Duration : 0.05 second(s) QT Interval : 0.36 second(s) [place] Consistency : Consistent QRS Consistency : Consistent ST Segment : Isoelectric Ectopy Frequency : Rare (1-3/min) Cardiac Rhythm Tech : Sinus rhythm, PVC, PJC ALEKSANDAR ALAS - 10/24/2014 8:27 CDT Source: [employer] Document Id: [id number] CDT!13 Dave Mercado R.N. - 10/24/2014 4:30 AM CDT Cardiac Monitoring Cardiac Monitoring Entered On: 10/24/2014 6:36 CDT Performed On: 10/24/2014 4:30 CDT by DAVE MERCADO RN Cardiac Monitoring Monitoring Lead : II, V1/MCL1 Atrial Rate : 72 bpm Atrial Rhythm : Regular Ventricular Rate : 72 bpm Ventricular Rhythm : Regular [place] Interval : 0.17 P to QRS Ratio : 1:1 QRS Duration : 0.09 second(s) QT Interval : 0.35 second(s) [place] Consistency : Consistent QRS Consistency : Consistent ST Segment : Isoelectric Ectopy Frequency : Occasional (4-8/min) Cardiac Rhythm Tech : Sinus rhythm DAVE MERCADO RN - 10/24/2014 6:35 CDT Source: [employer] Document Id: [id number] CDT!16 Dave Mercado R.N. - 10/23/2014 8:10 PM CDT Cardiac Monitoring Cardiac Monitoring Entered On: 10/24/2014 2:51 CDT Performed On: 10/23/2014 20:10 CDT by DAVE MERCADO RN Cardiac Monitoring Monitoring Lead : II, V1/MCL1 Atrial Rate : 82 bpm Atrial Rhythm : Regular Ventricular Rate : 82 bpm Ventricular Rhythm : Regular [place] Interval : 0.14 P to QRS Ratio : 8:9 QRS Duration : 0.07 second(s) QT Interval : 0.36 second(s) [place] Consistency : Consistent QRS Consistency : Consistent ST Segment : Isoelectric Ectopy Frequency : Rare (1-3/min) Cardiac Rhythm Tech : Sinus rhythm, PVC DAVE MERCADO RN - 10/24/2014 2:49 CDT Source: [employer] Document Id: [id number] CDT!16 Gume Cooley R.N. - 10/23/2014 6:32 PM CDT Patient had 4 small semi formed dark greenish stool today.No nausea.vitals stable.Tele SR with occational pacs.DENIED CHEST PAIN.Ambulated in the [address] and toleratedwell. Electronically Signed By: GUME COOLEY RN On: 12/12/2015 07:59 PM Modified by and Electronically Signed by: GUME COOLEY RN On: 10/23/2014 06:34 PM Source: [employer] Document Id: [id number] Gume Cooley RAbimbola - 10/23/2014 5:21 PM CDT Cardiac Monitoring Cardiac Monitoring Entered On: 10/23/2014 17:22 CDT Performed On: 10/23/2014 17:21 CDT by GUME COOLEY RN Cardiac Monitoring Monitoring Lead : II Monitoring Lead Vp Care Management : Other: q4h assesment Atrial Rate : 71 bpm Atrial Rhythm : Regular Ventricular Rate : 71 bpm Ventricular Rhythm : Regular [place] Interval : 0.16 P to QRS Ratio : 1;1 QRS Duration : 0.06 second(s) QT Interval : 0.36 second(s) [place] Consistency : Consistent QRS Consistency : Consistent ST Segment : Isoelectric Ectopy Frequency : None Cardiac Rhythm Tech : Sinus rhythm GUME COOLEY RN - 10/23/2014 17:21 CDT Source: [employer] Document Id: [id number] CDT!17 Abraham Castle - 10/23/2014 3:01 PM CDT Cardiac Monitoring Cardiac Monitoring Entered On: 10/23/2014 15:28 CDT Performed On: 10/23/2014 15:01 CDT by ABRAHAM CASTLE Cardiac Monitoring Monitoring Lead : II Ventricular Rate : 85 bpm Ventricular Rhythm : Regular [place] Interval : 0.17 QRS Duration : 0.05 second(s) QT Interval : 0.33 second(s) (Comment: QTc 0.40 sec [ABRAHAM CASTLE - 10/23/2014 15:27 CDT] ) [place] Consistency : Consistent QRS Consistency : Consistent ST Segment : Isoelectric Ectopy Frequency : Rare (1-3/min) Cardiac Rhythm Tech : Sinus rhythm, PVC ABRAHAM CASTLE - 10/23/2014 15:27 CDT Source: [employer] Document Id: [id number] CDT!13 Aleksandar Alas - 10/23/2014 1:41 PM CDT Cardiac Monitoring Cardiac Monitoring Entered On: 10/23/2014 13:42 CDT Performed On: 10/23/2014 13:41 CDT by ALEKSANDAR ALAS Cardiac Monitoring Ectopy Frequency : Rare (1-3/min) Ectopic Pattern : Couplets Cardiac Rhythm Tech : Sinus rhythm, PAC ALEKSANDAR ALAS - 10/23/2014 13:41 CDT Source: [employer] Document Id: [id number] CDT!5 Gume Cooley R.N. - 10/23/2014 12:29 PM CDT Cardiac Monitoring Cardiac Monitoring Entered On: 10/23/2014 13:56 CDT Performed On: 10/23/2014 12:29 CDT by GUME COOLEY RN Cardiac Monitoring Monitoring Lead : II Monitoring Lead Vp Care Management : Other: Q4H ASSESMENT Atrial Rate : 75 bpm Atrial Rhythm : Regular Ventricular Rate : 75 bpm Ventricular Rhythm : Regular [place] Interval : 0.18 P to QRS Ratio : 1:1 QRS Duration : 0.06 second(s) QT Interval : 0.36 second(s) [place] Consistency : Consistent QRS Consistency : Consistent ST Segment : Isoelectric Ectopy Frequency : None Cardiac Rhythm Tech : Sinus rhythm GUME COOLEY RN - 10/23/2014 13:55 CDT Source: [employer] Document Id: [id number] CDT!17 Leti Matthews RDN, - 10/23/2014 11:25 [...] LETI ESPINAL RDN - 10/23/2014 13:21 CDT [place] Body Weight : 61.3 kg [place] Body Weight Conversion to Pounds : 134.86 [...] ESPINAL RDN - 10/23/2014 11:25 CDT [facility] Document Id: [id number] CDT!6 Evelyn David R.N. - 10/23/2014 10:07 AM CDT Cardiac Monitoring Cardiac Monitoring Entered On: 10/23/2014 10:13 CDT Performed On: 10/23/2014 10:07 CDT by EVELYN DAVID hemmer automatic Monitoring Monitoring Lead : II Atrial Rate : 84 bpm Atrial Rhythm : Regular Ventricular Rate : 84 bpm Ventricular Rhythm : Regular [place] Interval : 0.17 P to QRS Ratio : 1:1 QRS Duration : 0.06 second(s) QT Interval : 0.32 second(s) [place] Consistency : Consistent QRS Consistency : Consistent ST Segment : Isoelectric Ectopy Frequency : None Cardiac Rhythm Tech : Sinus rhythm EVELYN DAVID RN - 10/23/2014 10:07 CDT Source: [employer] Document Id: [id number] CDT!16 Aleksandar Alas - 10/23/2014 7:02 AM CDT Cardiac Monitoring Cardiac Monitoring Entered On: 10/23/2014 7:51 CDT Performed On: 10/23/2014 7:02 CDT by ALEKSANDAR ALAS Cardiac Monitoring Monitoring Lead : II, V1/MCL1 Ventricular Rate : 69 bpm Ventricular Rhythm : Regular [place] Interval : 0.19 QRS Duration : 0.07 second(s) QT Interval : 0.34 second(s) [place] Consistency : Consistent QRS Consistency : Consistent ST Segment : Isoelectric Cardiac Rhythm Tech : Sinus rhythm ALEKSANDAR ALAS - 10/23/2014 7:50 CDT Source: [employer] Document Id: [id number] CDT!12 Vijaya Martin - 10/23/2014 5:29 AM CDT Cardiac Monitoring Cardiac Monitoring Entered On: 10/23/2014 5:29 CDT Performed On: 10/23/2014 5:29 CDT by VIJAYA MARTIN Cardiac Monitoring Ectopy Frequency : Occasional (4-8/min) Ectopic Pattern : Couplets Ectopy Description Vp Care Management : Unifocal Cardiac Rhythm Tech : Sinus rhythm, PAC, PVC, PJC VIJAYA MARTIN - 10/23/2014 5:29 CDT Source: [employer] Document Id: [id number] CDT!6 Conversion, Historical Provider Ser - 10/23/2014 5:21 AM CDT Cardiac Monitoring Cardiac Monitoring Entered On: 10/23/2014 5:22 CDT Performed On: 10/23/2014 5:21 CDT by MIR SALINAS RN Cardiac Monitoring Monitoring Lead : II Atrial Rate : 66 bpm Atrial Rhythm : Regular Ventricular Rate : 66 bpm Ventricular Rhythm : Regular [place] Interval : .18 P to QRS Ratio : 1-1 QRS Duration : 0.09 second(s) QT Interval : 0.38 second(s) [place] Consistency : Consistent QRS Consistency : Consistent ST Segment : Isoelectric Cardiac Rhythm Tech : Sinus rhythm MIR SALINAS RN - 10/23/2014 5:21 CDT Source: [employer] Document Id: [id number] CDT!15 Conversion, Historical Provider Ser - 10/23/2014 12:55 AM CDT Cardiac Monitoring Cardiac Monitoring Entered On: 10/23/2014 0:56 CDT Performed On: 10/23/2014 0:55 CDT by MIR SALINAS RN Cardiac Monitoring Monitoring Lead : II Atrial Rate : 79 bpm Atrial Rhythm : Regular Ventricular Rate : 79 bpm Ventricular Rhythm : Regular [place] Interval : .19 P to QRS Ratio : 1-1 QRS Duration : 0.06 second(s) QT Interval : 0.34 second(s) [place] Consistency : Consistent QRS Consistency : Consistent ST Segment : Isoelectric Cardiac Rhythm Tech : Sinus rhythm MIR SALINAS RN - 10/23/2014 0:55 CDT Source: [employer] Document Id: [id number] CDT!15 Vijaya Martin - 10/22/2014 11:02 PM CDT Cardiac Monitoring Cardiac Monitoring Entered On: 10/22/2014 23:04 CDT Performed On: 10/22/2014 23:02 CDT by VIJAYA MARTIN Cardiac Monitoring Monitoring Lead : II, V1/MCL1 Monitoring Lead Vp Care Management : Initiated Ventricular Rate : 89 bpm Ventricular Rhythm : Regular [place] Interval : 0.16 QRS Duration : 0.08 second(s) QT Interval : 0.30 second(s) (Comment: QTc 0.36 [VIJAYA MARTIN - 10/22/2014 23:02 CDT] ) [place] Consistency : Consistent QRS Consistency : Consistent ST Segment : Isoelectric Ectopy Frequency : Occasional (4-8/min) Ectopic Pattern : Other: PSVT run 7 beats HR 149 bpm Ectopy Description Vp Care Management : Unifocal Cardiac Rhythm Tech : Sinus rhythm, PAC, PVC VIJAYA MARTIN - 10/22/2014 23:02 CDT Source: [employer] Document Id: [id number] CDT!16 Conversion, Historical Provider Ser - 10/22/2014 8:47 PM CDT Cardiac Monitoring Cardiac Monitoring Entered On: 10/22/2014 20:48 CDT Performed On: 10/22/2014 20:47 CDT by MIR SALINAS RN Cardiac Monitoring Monitoring Lead : II Atrial Rate : 100 bpm Atrial Rhythm : Regular Ventricular Rate : 100 bpm Ventricular Rhythm : Regular [place] Interval : .17 P to QRS Ratio : 1-1 QRS Duration : 0.07 second(s) QT Interval : 0.35 second(s) [place] Consistency : Consistent QRS Consistency : Consistent ST Segment : Isoelectric Cardiac Rhythm Tech : Sinus rhythm MIR SALINAS RN - 10/22/2014 20:47 CDT Source: [employer] Document Id: [id number] CDT!15 Juan Antonio Beckford R.N. - 10/22/2014 5:10 PM CDT Cardiac Monitoring Cardiac Monitoring Entered On: 10/22/2014 17:15 CDT Performed On: 10/22/2014 17:10 CDT by JUAN ANTONIO BECKFORD RN Cardiac Monitoring Monitoring Lead : II, V1/MCL1 Monitoring Lead Vp Care Management : Other: continued Atrial Rate : 82 bpm Atrial Rhythm : Regular Ventricular Rate : 82 bpm Ventricular Rhythm : Regular [place] Interval : 0.16 P to QRS Ratio : 1:1 QRS Duration : 0.09 second(s) QT Interval : 0.32 second(s) [place] Consistency : Consistent QRS Consistency : Consistent ST Segment : Isoelectric Cardiac Rhythm Tech : Sinus rhythm, PAC JUAN ANTONIO BECKFORD RN - 10/22/2014 17:10 CDT Source: [employer] Document Id: [id number] CDT!16 Lisandra English - 10/22/2014 3:18 PM CDT Cardiac Monitoring Cardiac Monitoring Entered On: 10/22/2014 16:35 CDT Performed On: 10/22/2014 15:18 CDT by LISANDRA ENGLISH Cardiac Monitoring Monitoring Lead : II, V1/MCL1 Monitoring Lead Vp Care Management : Initiated Ventricular Rate : 76 bpm Ventricular Rhythm : Regular [place] Interval : 0.15 QRS Duration : 0.06 second(s) QT Interval : 0.34 second(s) [place] Consistency : Consistent QRS Consistency : Consistent ST Segment : Isoelectric Cardiac Rhythm Tech : Sinus rhythm SATHOFFLISANDRA - 10/22/2014 16:34 CDT Source: [employer] Document Id: [id number] CDT!13 Juan Antonio Beckford R.N. - 10/22/2014 12:20 PM CDT Cardiac Monitoring Cardiac Monitoring Entered On: 10/22/2014 17:16 CDT Performed On: 10/22/2014 12:20 CDT by JUAN ANTONIO BECKFORD RN Cardiac Monitoring Monitoring Lead : II, V1/MCL1 Monitoring Lead Vp Care Management : Other: continued Atrial Rate : 74 bpm Atrial Rhythm : Regular Ventricular Rate : 74 bpm Ventricular Rhythm : Regular [place] Interval : 0.17 P to QRS Ratio : 1:1 QRS Duration : 0.11 second(s) QT Interval : 0.36 second(s) [place] Consistency : Consistent QRS Consistency : Consistent ST Segment : Isoelectric Ectopy Frequency : Occasional (4-8/min) Cardiac Rhythm Tech : Sinus rhythm, PAC JUAN ANTONIO BECKFORD RN - 10/22/2014 17:15 CDT Source: [employer] Document Id: [id number] CDT!17 Juan Antonio Beckford RAbimbola - 10/22/2014 10:01 AM CDT Cardiac Monitoring Cardiac Monitoring Entered On: 10/22/2014 10:02 CDT Performed On: 10/22/2014 10:01 CDT by JUAN ANTONIO BECKFORD RN Cardiac Monitoring Monitoring Lead : II, V1/MCL1 Monitoring Lead Vp Care Management : Other: continued monitoring Atrial Rate : 73 bpm Atrial Rhythm : Regular Ventricular Rate : 73 bpm Ventricular Rhythm : Regular [place] Interval : 0.18 P to QRS Ratio : 1:1 QRS Duration : 0.09 second(s) QT Interval : 0.36 second(s) [place] Consistency : Consistent QRS Consistency : Consistent ST Segment : Isoelectric Ectopy Frequency : Occasional (4-8/min) Ectopy Description Vp Care Management : Unifocal Cardiac Rhythm Tech : Sinus rhythm, PAC JUAN ANTONIO BECKFORD RN - 10/22/2014 10:01 CDT Source: [employer] Document Id: [id number] CDT!18 Lisandra English - 10/22/2014 7:18 AM CDT Cardiac Monitoring Cardiac Monitoring Entered On: 10/22/2014 7:53 CDT Performed On: 10/22/2014 7:18 CDT by LISANDRA ENGLISH Cardiac Monitoring Monitoring Lead : II, V1/MCL1 Monitoring Lead Vp Care Management : Initiated Ventricular Rate : 73 bpm Ventricular Rhythm : Regular [place] Interval : 0.17 QRS Duration : 0.06 second(s) QT Interval : 0.37 second(s) [place] Consistency : Consistent QRS Consistency : Consistent ST Segment : Isoelectric Cardiac Rhythm Tech : Sinus rhythm LISANDRA ENGLISH - 10/22/2014 7:53 CDT Source: [employer] Document Id: [id number] CDT!13 Conversion, Historical Provider Ser - 10/22/2014 [...] SALINAS RN - 10/22/2014 6:28 CDT Source: [employer] Document Id: [id number] CDT!8 Vijaya Martin - 10/22/2014 5:33 AM CDT Cardiac Monitoring Cardiac Monitoring Entered On: 10/22/2014 5:34 CDT Performed On: 10/22/2014 5:33 CDT by VIJAYA MARTIN Cardiac Monitoring Ectopy Frequency : Rare (1-3/min) Ectopic Pattern : Couplets Ectopy Description Vp Care Management : Unifocal Cardiac Rhythm Tech : Sinus rhythm, PAC, PVC VIJAYA MARTIN - 10/22/2014 5:33 CDT Source: [employer] Document Id: [id number] CDT!6 Conversion, Historical Provider Ser - 10/22/2014 5:13 AM CDT Cardiac Monitoring Cardiac Monitoring Entered On: 10/22/2014 5:13 CDT Performed On: 10/22/2014 5:13 CDT by MIR SALINAS RN Cardiac Monitoring Monitoring Lead : II Atrial Rate : 77 bpm Atrial Rhythm : Regular Ventricular Rate : 77 bpm Ventricular Rhythm : Regular [place] Interval : .19 P to QRS Ratio : 1-1 QRS Duration : 0.07 second(s) QT Interval : 0.34 second(s) [place] Consistency : Consistent QRS Consistency : Consistent ST Segment : Isoelectric Cardiac Rhythm Tech : Sinus rhythm MIR SALINAS RN - 10/22/2014 5:13 CDT Source: [employer] Document Id: [id number] CDT!15 Conversion, Historical Provider Ser - 10/22/2014 12:54 AM CDT Cardiac Monitoring Cardiac Monitoring Entered On: 10/22/2014 0:55 CDT Performed On: 10/22/2014 0:54 CDT by MIR SALINAS RN Cardiac Monitoring Monitoring Lead : II Atrial Rate : 72 bpm Atrial Rhythm : Regular Ventricular Rate : 72 bpm Ventricular Rhythm : Regular [place] Interval : .20 P to QRS Ratio : 1-1 QRS Duration : 0.08 second(s) QT Interval : 0.35 second(s) [place] Consistency : Consistent QRS Consistency : Consistent ST Segment : Isoelectric Cardiac Rhythm Tech : Sinus rhythm MIR SALINAS RN - 10/22/2014 0:54 CDT Source: [employer] Document Id: [id number] CDT!15 Vijaya Martin - 10/21/2014 11:13 PM CDT Cardiac Monitoring Cardiac Monitoring Entered On: 10/21/2014 23:17 CDT Performed On: 10/21/2014 23:13 CDT by VIJAYA MARTIN Cardiac Monitoring Monitoring Lead : II, V1/MCL1 Monitoring Lead Vp Care Management : Initiated Ventricular Rate : 74 bpm Ventricular Rhythm : Regular [place] Interval : 0.14 QRS Duration : 0.06 second(s) QT Interval : 0.33 second(s) [place] Consistency : Consistent QRS Consistency : Consistent ST Segment : Isoelectric Ectopy Frequency : Occasional (4-8/min) Ectopic Pattern : Other: PAT run 5 beats HR 121 bpm Ectopy Description Vp Care Management : Unifocal Cardiac Rhythm Tech : Sinus rhythm, PAC, PVC VIJAYA MARTIN - 10/21/2014 23:13 CDT Source: [employer] Document Id: [id number] CDT!16 Conversion, Historical Provider Ser - 10/21/2014 10:10 PM CDT Cardiac Monitoring Cardiac Monitoring Entered On: 10/21/2014 22:11 CDT Performed On: 10/21/2014 22:10 CDT by MIR SALINAS RN Cardiac Monitoring Monitoring Lead : II Atrial Rate : 77 bpm Atrial Rhythm : Regular Ventricular Rate : 77 bpm Ventricular Rhythm : Regular [place] Interval : .14 P to QRS Ratio : 1-1 QRS Duration : 0.06 second(s) QT Interval : 0.36 second(s) [place] Consistency : Consistent QRS Consistency : Consistent ST Segment : Isoelectric Cardiac Rhythm Tech : Sinus rhythm MIR SALINAS RN - 10/21/2014 22:10 CDT Source: [employer] Document Id: [id number] CDT!15 Juan Antonio Beckford R.N. - 10/21/2014 4:25 PM CDT Cardiac Monitoring Cardiac Monitoring Entered On: 10/21/2014 16:25 CDT Performed On: 10/21/2014 16:25 CDT by JUAN ANTONIO BECKFORD RN Cardiac Monitoring Monitoring Lead : II, V1/MCL1 Monitoring Lead Vp Care Management : Other: conitnued monitoring Atrial Rate : 73 bpm Atrial Rhythm : Regular Ventricular Rate : 73 bpm Ventricular Rhythm : Regular [place] Interval : 0.18 P to QRS Ratio : 1:1 QRS Duration : 0.08 second(s) QT Interval : 0.35 second(s) [place] Consistency : Consistent QRS Consistency : Consistent ST Segment : Isoelectric Ectopy Frequency : Rare (1-3/min) Ectopy Description Vp Care Management : Unifocal Cardiac Rhythm Tech : Sinus rhythm, PVC JUAN ANTONIO BECKFORD RN - 10/21/2014 16:25 CDT Source: [employer] Document Id: [id number] CDT!18 Lisandra English - 10/21/2014 3:06 PM CDT Cardiac Monitoring Cardiac Monitoring Entered On: 10/21/2014 15:29 CDT Performed On: 10/21/2014 15:06 CDT by LISANDRA ENGLISH Cardiac Monitoring Monitoring Lead : II, V1/MCL1 Monitoring Lead Vp Care Management : Initiated Ventricular Rate : 78 bpm Ventricular Rhythm : Regular [place] Interval : 0.17 QRS Duration : 0.06 second(s) QT Interval : 0.33 second(s) [place] Consistency : Consistent QRS Consistency : Consistent ST Segment : Isoelectric Cardiac Rhythm Tech : Sinus rhythm LISANDRA ENGLISH - 10/21/2014 15:29 CDT Source: [employer] Document Id: [id number] CDT!13 Juan Antonio Beckford R.N. - 10/21/2014 12:00 PM CDT Cardiac Monitoring Cardiac Monitoring Entered On: 10/21/2014 15:12 CDT Performed On: 10/21/2014 12:00 CDT by JUAN ANTONIO BECKFORD RN Cardiac Monitoring Monitoring Lead : II, V1/MCL1 Monitoring Lead Vp Care Management : Other: continued monitoring Atrial Rate : 72 bpm Atrial Rhythm : Regular Ventricular Rate : 72 bpm Ventricular Rhythm : Regular [place] Interval : 0.17 P to QRS Ratio : 1:1 QRS Duration : 0.09 second(s) QT Interval : 0.35 second(s) [place] Consistency : Consistent QRS Consistency : Consistent ST Segment : Isoelectric Ectopy Frequency : Rare (1-3/min) Cardiac Rhythm Tech : Sinus rhythm, PVC JUAN ANTONIO BECKFORD RN - 10/21/2014 15:10 CDT Source: [employer] Document Id: [id number] CDT!17 Juan Antonio Beckford R.N. - 10/21/2014 8:00 AM CDT Cardiac Monitoring Cardiac Monitoring Entered On: 10/21/2014 15:13 CDT Performed On: 10/21/2014 8:00 CDT by JUAN ANTONIO BECKFORD RN Cardiac Monitoring Monitoring Lead : II, V1/MCL1 Monitoring Lead Vp Care Management : Other: continued Atrial Rate : 80 bpm Atrial Rhythm : Regular Ventricular Rate : 80 bpm Ventricular Rhythm : Regular [place] Interval : 0.16 P to QRS Ratio : 1:1 QRS Duration : 0.08 second(s) QT Interval : 0.34 second(s) [place] Consistency : Consistent QRS Consistency : Consistent ST Segment : Isoelectric Ectopy Frequency : None Cardiac Rhythm Tech : Sinus rhythm JUAN ANTONIO BECKFORD RN - 10/21/2014 15:12 CDT Source: [employer] Document Id: [id number] CDT!17 Lisandra English L - 10/21/2014 7:21 AM CDT Cardiac Monitoring Cardiac Monitoring Entered On: 10/21/2014 8:25 CDT Performed On: 10/21/2014 7:21 CDT by LISANDRA ENGLISH Cardiac Monitoring Monitoring Lead : II, V1/MCL1 Monitoring Lead Vp Care Management : Initiated Ventricular Rate : 71 bpm Ventricular Rhythm : Regular [place] Interval : 0.19 QRS Duration : 0.06 second(s) QT Interval : 0.35 second(s) [place] Consistency : Consistent QRS Consistency : Consistent ST Segment : Isoelectric Cardiac Rhythm Tech : Sinus rhythm AMADOR LISANDRA Johnston - 10/21/2014 8:25 CDT Source: [employer] Document Id: [id number] CDT!13 Juan Antonio Beckford RXeniaN. - 10/21/2014 7:05 AM CDT Cardiac Monitoring Cardiac Monitoring Entered On: 10/21/2014 15:14 CDT Performed On: 10/21/2014 7:05 CDT by JUAN ANTONIO BECKFORD RN Cardiac Monitoring Monitoring Lead : II, V1/MCL1 Monitoring Lead Vp Care Management : Other: Moved to [facility] from [facility] Atrial Rate : 77 bpm Atrial Rhythm : Regular Ventricular Rate : 77 bpm Ventricular Rhythm : Regular [place] Interval : 0.18 P to QRS Ratio : 1:1 QRS Duration : 0.09 second(s) QT Interval : 0.35 second(s) [place] Consistency : Consistent QRS Consistency : Consistent ST Segment : Isoelectric Ectopy Frequency : Rare (1-3/min) Ectopy Description Vp Care Management : Unifocal Cardiac Rhythm Tech : Sinus rhythm, PVC JUAN ANTONIO BECKFORD RN - 10/21/2014 15:13 CDT Source: [employer] Document Id: [id number] CDT!18 Conversion, Historical Provider Ser - 10/21/2014 [...] SALINAS RN - 10/21/2014 5:36 CDT Source: [employer] Document Id: [id number] CDT!6 Conversion, Historical Provider Ser - 10/21/2014 5:28 AM CDT Cardiac Monitoring Cardiac Monitoring Entered On: 10/21/2014 5:29 CDT Performed On: 10/21/2014 5:28 CDT by MIR SALINAS RN Cardiac Monitoring Monitoring Lead : II Atrial Rate : 77 bpm Atrial Rhythm : Regular Ventricular Rate : 77 bpm Ventricular Rhythm : Regular [place] Interval : .20 P to QRS Ratio : 1-1 QRS Duration : 0.09 second(s) QT Interval : 0.34 second(s) [place] Consistency : Consistent QRS Consistency : Consistent ST Segment : Isoelectric Cardiac Rhythm Tech : Sinus rhythm MIR SALINAS RN - 10/21/2014 5:28 CDT Source: [employer] Document Id: [id number] CDT!15 Vijaya Martin - 10/21/2014 3:10 AM CDT Cardiac Monitoring Cardiac Monitoring Entered On: 10/21/2014 3:40 CDT Performed On: 10/21/2014 3:10 CDT by VIJAYA MARTIN Cardiac Monitoring Monitoring Lead : II, V1/MCL1 Monitoring Lead Vp Care Management : Initiated Ventricular Rate : 71 bpm Ventricular Rhythm : Regular [place] Interval : 0.20 QRS Duration : 0.08 second(s) QT Interval : 0.34 second(s) (Comment: QTc 0.37 [VIJAYA MARTIN - 10/21/2014 3:38 CDT] ) [place] Consistency : Consistent (Comment: Long [place] [VIJAYA MARTIN - 10/21/2014 3:38 CDT] ) QRS Consistency : Consistent ST Segment : Isoelectric Ectopy Frequency : Rare (1-3/min) Ectopy Description Vp Care Management : Unifocal Cardiac Rhythm Tech : Sinus rhythm, PAC, PVC, First degree heart block MO VIJAYA - 10/21/2014 3:38 CDT Source: [employer] Document Id: [id number] CDT!15 Conversion, Historical Provider Ser - 10/21/2014 2:25 AM CDT Cardiac Monitoring Cardiac Monitoring Entered On: 10/21/2014 2:26 CDT Performed On: 10/21/2014 2:25 CDT by MIR SALINAS RN Cardiac Monitoring Monitoring Lead : II Atrial Rate : 70 bpm Atrial Rhythm : Regular Ventricular Rate : 70 bpm Ventricular Rhythm : Regular [place] Interval : .17 P to QRS Ratio : 1-1 QRS Duration : 0.08 second(s) QT Interval : 0.37 second(s) [place] Consistency : Consistent QRS Consistency : Consistent ST Segment : Isoelectric Cardiac Rhythm Tech : Sinus rhythm MIR SALINAS RN - 10/21/2014 2:25 CDT Source: [employer] Document Id: [id number] CDT!15 Conversion, Historical Provider Ser - 10/21/2014 12:48 AM CDT Cardiac Monitoring Cardiac Monitoring Entered On: 10/21/2014 0:50 CDT Performed On: 10/21/2014 0:48 CDT by MIR SALINAS RN Cardiac Monitoring Monitoring Lead : II Atrial Rate : 75 bpm Atrial Rhythm : Regular Ventricular Rate : 75 bpm Ventricular Rhythm : Regular [place] Interval : .15 P to QRS Ratio : 1-1 QRS Duration : 0.08 second(s) QT Interval : 0.37 second(s) [place] Consistency : Consistent QRS Consistency : Consistent ST Segment : Isoelectric Cardiac Rhythm Tech : Sinus rhythm MIR SALINAS RN - 10/21/2014 0:48 CDT Source: [employer] Document Id: [id number] CDT!15 Vijaya Martin - 10/20/2014 11:14 PM CDT Cardiac Monitoring Cardiac Monitoring Entered On: 10/20/2014 23:31 CDT Performed On: 10/20/2014 23:14 CDT by VIJAYA MARTIN Cardiac Monitoring Monitoring Lead : II, V1/MCL1 Monitoring Lead Vp Care Management : Initiated Ventricular Rate : 76 bpm Ventricular Rhythm : Regular [place] Interval : 0.18 QRS Duration : 0.08 second(s) QT Interval : 0.35 second(s) (Comment: QTc 0.39 [VIJAYA MARTIN - 10/20/2014 23:31 CDT] ) [place] Consistency : Consistent QRS Consistency : Consistent ST Segment : Isoelectric Ectopy Frequency : Rare (1-3/min) Ectopy Description Vp Care Management : Unifocal Cardiac Rhythm Tech : Sinus rhythm, PAC, PVC VIJAYA MARTIN - 10/20/2014 23:31 CDT Source: [employer] Document Id: [id number] CDT!15 Vijaya Martin - 10/20/2014 7:16 PM CDT Cardiac Monitoring Cardiac Monitoring Entered On: 10/20/2014 19:17 CDT Performed On: 10/20/2014 19:16 CDT by VIJAYA MARTIN Cardiac Monitoring Monitoring Lead : II, V1/MCL1 Monitoring Lead Vp Care Management : Initiated Ventricular Rate : 74 bpm Ventricular Rhythm : Regular [place] Interval : 0.18 P to QRS Ratio : 1:1 QRS Duration : 0.06 second(s) QT Interval : 0.34 second(s) (Comment: QTc 0.37 [VIJAYA MARTIN - 10/20/2014 19:16 CDT] ) [place] Consistency : Consistent QRS Consistency : Consistent ST Segment : Isoelectric Cardiac Rhythm Tech : Sinus rhythm VIJAYA MARTIN - 10/20/2014 19:16 CDT Source: [employer] Document Id: [id number] CDT!14 Alicia Sheikh R.N. - 10/20/2014 4:30 PM CDT Cardiac Monitoring Cardiac Monitoring Entered On: 10/20/2014 18:42 CDT Performed On: 10/20/2014 16:30 CDT by ALICIA SHEIKH hemmer automatic Monitoring Monitoring Lead : II Atrial Rate : 74 bpm Atrial Rhythm : Regular Ventricular Rate : 74 bpm Ventricular Rhythm : Regular [place] Interval : .19 P to QRS Ratio : 1:1 QRS Duration : 0.07 second(s) QT Interval : 0.35 second(s) [place] Consistency : Consistent QRS Consistency : Consistent ST Segment : Isoelectric Ectopy Frequency : None Cardiac Rhythm Tech : Sinus rhythm ALICIA SHEIKH RN - 10/20/2014 18:42 CDT Source: [employer] Document Id: [id number] CDT!16 Lisandra English - 10/20/2014 3:03 PM CDT Cardiac Monitoring Cardiac Monitoring Entered On: 10/20/2014 15:17 CDT Performed On: 10/20/2014 15:03 CDT by LISANDRA ENGLISH Cardiac Monitoring Monitoring Lead : II, V1/MCL1 Monitoring Lead Vp Care Management : Initiated Ventricular Rate : 82 bpm Ventricular Rhythm : Regular [place] Interval : 0.20 QRS Duration : 0.04 second(s) QT Interval : 0.34 second(s) [place] Consistency : Consistent QRS Consistency : Consistent ST Segment : Isoelectric Cardiac Rhythm Tech : Sinus rhythm LISANDRA ENGLISH - 10/20/2014 15:17 CDT Source: [employer] Document Id: [id number] CDT!13 Alicia Sheikh RAbimbola - 10/20/2014 1:25 PM CDT Cardiac Monitoring Document Has Been Updated Cardiac Monitoring Entered On: 10/20/2014 14:11 CDT Performed On: 10/20/2014 13:25 CDT by ALICIA SHEIKH RN Cardiac Monitoring Monitoring Lead : II Atrial Rate : 80 bpm Atrial Rhythm : Regular Ventricular Rate : 80 bpm Ventricular Rhythm : Regular [place] Interval : .18 P to QRS Ratio : 1:1 QRS Duration : 0.09 second(s) ALICIA SHEIKH RN - 10/20/2014 14:11 CDT QT Interval : 0.40 second(s) ALICIA SHEIKH RN - 10/20/2014 14:12 CDT [place] Consistency : Consistent ST Segment : Isoelectric Ectopy Frequency : None Cardiac Rhythm Tech : Sinus rhythm ALICIA SHEIKH RN - 10/20/2014 14:11 CDT Source: [employer] Document Id: [id number] CDT!3 Alicia Sheikh R.N. - 10/20/2014 8:12 AM CDT Cardiac Monitoring Cardiac Monitoring Entered On: 10/20/2014 8:13 CDT Performed On: 10/20/2014 8:12 CDT by ALICIA SHEIKH RN Cardiac Monitoring Monitoring Lead : II Atrial Rate : 81 bpm Atrial Rhythm : Regular Ventricular Rate : 81 bpm Ventricular Rhythm : Regular [place] Interval : .18 P to QRS Ratio : 1:1 QRS Duration : 0.08 second(s) QT Interval : 0.37 second(s) [place] Consistency : Consistent QRS Consistency : Consistent ST Segment : Isoelectric Ectopy Frequency : None Cardiac Rhythm Tech : Sinus rhythm ALICIA SHEIKH RN - 10/20/2014 8:12 CDT Source: [employer] Document Id: [id number] CDT!16 Lisandra English - 10/20/2014 7:14 AM CDT Cardiac Monitoring Cardiac Monitoring Entered On: 10/20/2014 7:36 CDT Performed On: 10/20/2014 7:14 CDT by LISANDRA ENGLISH Cardiac Monitoring Monitoring Lead : II, V1/MCL1 Monitoring Lead Vp Care Management : Initiated Ventricular Rate : 77 bpm Ventricular Rhythm : Regular [place] Interval : 0.21 QRS Duration : 0.05 second(s) QT Interval : 0.38 second(s) [place] Consistency : Consistent QRS Consistency : Consistent ST Segment : Isoelectric Cardiac Rhythm Tech : Sinus rhythm, First degree heart block LISANDRA ENGLISH - 10/20/2014 7:35 CDT Source: [employer] Document Id: [id number] CDT!13 Alisha Walton RAbimbola - 10/20/2014 6:40 AM CDT end of shift Slept fairly well. Denies any chilling or nausea and dizziness this am. [place] [facility]. Feels thirsty. Son at bedside this am. Electronically Signed By: ALISHA WALTON RN On: 10/20/2014 06:41 AM Source: [employer] Document Id: [id number] Tje Cox - 10/20/2014 5:52 AM CDT Cardiac Monitoring Cardiac Monitoring Entered On: 10/20/2014 5:52 CDT Performed On: 10/20/2014 5:52 CDT by TEJ COX Cardiac Monitoring Monitoring Lead : II, V1/MCL1 Ventricular Rate : 83 bpm Ventricular Rhythm : Regular [place] Interval : 0.19 QRS Duration : 0.10 second(s) QT Interval : 0.35 second(s) Cardiac Rhythm Tech : Sinus rhythm TEJ COX - 10/20/2014 5:52 CDT Source: [employer] Document Id: [id number] CDT!9 Alisha Walton R.N. - 10/20/2014 5:38 [...] WALTON RN On: 10/20/2014 05:42 AM Source: [employer] Document Id: [id number] Alisha Walton R.N. - 10/20/2014 3:56 AM CDT Cardiac Monitoring Cardiac Monitoring Entered On: 10/20/2014 5:30 CDT Performed On: 10/20/2014 3:56 CDT by ALISHA WALTON RN Cardiac Monitoring Monitoring Lead : II Atrial Rate : 78 bpm Atrial Rhythm : Regular Ventricular Rate : 78 bpm Ventricular Rhythm : Regular [place] Interval : 0.20 QRS Duration : 0.08 second(s) QT Interval : 0.39 second(s) [place] Consistency : Consistent QRS Consistency : Consistent ST Segment : Isoelectric Ectopy Frequency : Rare (1-3/min) Cardiac Rhythm Tech : Sinus rhythm ALISHA WALTON RN - 10/20/2014 5:29 CDT Source: [employer] Document Id: [id number] CDT!15 documented in this encounter Miscellaneous Notes Miscellaneous - Conversion, Historical Provider Ser - 10/24/2014 8:20 AM CDT Coding Summary-Paper Based CODING DATE: 11/01/2014 FINAL [facility] STATUS: Disch/Trans w/in Inst Medicare Swing Bed PAYOR: Medicare Grouper: 872 MS-DRG Septicemia or severe sepsis w/o MV 96+ hours w/o [facility] DX: 780.60 Fever, Unspecified REASON FOR [...] DICK Date Saved: 11/01/2014 08:24 am Source: [employer] Document Id: [id number] Miscellaneous - Dave Mercado RAbimbola - 10/24/2014 12:07 AM CDT Adult Ongoing [...] Yes/No : No Nail Bed Color : [place] Capillary Refill : Less than 2 seconds Edema Assessment : No Monitored Rhythm : Yes Pacer : No DAVE MERCADO RN - 10/24/2014 0:57 CDT Cardiac Rhythm Techs Monitoring Lead : II, V1/MCL1 Atrial Rate : 80 bpm Atrial Rhythm : Regular Ventricular Rate : 80 bpm Ventricular Rhythm : Regular [place] Interval : 0.17 P to QRS Ratio : 1:1 QRS Duration : 0.09 second(s) QT Interval : 0.38 second(s) [place] Consistency : Consistent QRS Consistency : Consistent [...] to Meet Safety Needs : Yes (Comment: [place], wears hearing aides [DAVE MERCADO 10/24/2014 1:56 [...] Elastic Skin Integrity : Intact DAVE MERCADO 10/24/2014 1:56 CDT Skin Abnormality/Location Grid Location : Abdomen Hand Lower arm Laterality : Left, Right Left, Right Right Abnormality : Bruising Bruising Bruising DAVE MERCADO Jaspreet 10/24/2014 1:56 CDT DAVE MERCADO Jaspreet 10/24/2014 1:56 CDT DAVE MERCADO 10/24/2014 1:56 CDT Foot Press Operator Integumentary - Grid Foot Press Operator : Electrode Assessment/Action : Not removed Skin [...] MERCADO RN - 10/24/2014 1:56 CDT Source: [facility] [employer] Document Id: [id number] CDT!7 Miscellaneous - Dave Mercado RAbimbola - [...] MERCADO RN - 10/23/2014 22:04 CDT Source: [employer] Document Id: [id number] CDT!10 Miscellaneous - Dave Mercado R.N. - [...] MERCADO RN - 10/23/2014 21:59 CDT Source: [employer] Document Id: [id number] CDT!39 Miscellaneous - Gume Cooley RAbimbola - [...] Yes/No : No Nail Bed Color : [place] Capillary Refill : Less than 2 seconds [...] distress GUME COOLEY - 10/23/2014 16:47 CDT Neurological Neuro Patient Stated Symptoms : None Orientation : Oriented x 3 Level of Consciousness : Alert Gait : Steady Swallowing Difficulty/Aspiration Risk : None Last Well Time Known : Not applicable GUME COOLEY DEONNA - 10/23/2014 16:47 CDT Clare Coma Eye Opening Response Clare : Spontaneously Best Verbal Response Clare : Oriented Best Motor Response Clare : Obeys simple commands Marine Coma Score : 15 GUME COOLEY - 10/23/2014 16:47 CDT Oral Exam - Swing Bed Teeth and supporting structure for : No abnormality Oral Cavity Tissue for : No abnormality Gums for : No abnormality Are there any swollen lymph nodes in neck : No GUME COOLEY DEONNA - 10/23/2014 16:47 CDT Oral Assessment Lips : Smooth, pink, moist, intact Gingiva : [place], smooth, moist, intact Tongue : Smooth, pink, [...] Small Passing Flatus : Yes ALFONZO ACHARYAEdilmaGUME DEONNA - 10/23/2014 16:47 CDT Nutrition Home [...] : Not intact Mucous Membrane Color : [place] Mucous Membrane Description : Moist GUME COOLEY DEONNA - 10/23/2014 16:47 CDT Skin Abnormality/Location Grid Location : Abdomen Hand Laterality : Left, Right Left, Right Abnormality : Bruising Bruising GUME COOLEY - 10/23/2014 16:47 CDT GUME COOLEY - 10/23/2014 16:47 CDT Foot Press Operator Integumentary - Grid Foot Press Operator : Electrode Assessment/Action : Removed and reapplied [...] problem Shawn Score : 22 GUME COOLEY - 10/23/2014 16:47 CDT Musculoskeletal Musculoskeletal Patient Stated Symptoms : None Activity Tolerance : Without distress GUME COOLEY DEONNA - 10/23/2014 16:47 CDT Peripheral IV Peripheral [...] CDTCHGUME ANDREW RN - 10/23/2014 16:47 CDT [facility] Risk Confusion/Disorientation Hendrich : No [...] COOLEY RN - 10/23/2014 16:47 CDT Source: [facility] [employer] Document Id: [id number] CDT!187 Miscellaneous - Nabeel Garces - 10/23/2014 [...] NABEEL GARCES - 10/23/2014 13:34 CDT Source: [facility] Document Id: [id number] CDT!6 Miscellaneous - Gume Cooley, R.N. - [...] COOLEY RN - 10/23/2014 18:23 CDT Source: [facility] [employer] Document Id: [id number] CDT!3 Krystyna Wanrer - 10/23/2014 10:14 AM CDT Team Meeting Notes Team Meeting Notes Entered On: 10/23/2014 10:14 CDT Performed On: 10/23/2014 10:14 CDT by KRYSTYNA GROSS Team Notes Team Meeting Grid Discipline : Executive Vp, Repertoire Manager, Family, Nurse, Patient, Physical Therapist, Health Information Assistant Topics : Medication, Plan of care Goal of the Day : Pt will likely switch to TCU today for ongoing IV antibiotics. KRYSTYNA GROSS - 10/23/2014 10:14 CDT Source: [employer] Document Id: [id number] CDT!7 Jarod - Gume Cooley RAbimbola - [...] Yes/No : No Nail Bed Color : [place] Capillary Refill : Less than 2 seconds Edema Assessment : No Pacer : No ALFONZO ELISEOREBAEidlmaGUME Tanya YING - 10/23/2014 12:44 CDT Radial [...] Pedis Pulse, Right : 2+ Normal ALFONZO ACHARYAEdilmaGUME Tanya YING - 10/23/2014 12:44 CDT Skin [...] Well Time Known : Not applicable ALFONZO ELISEOREBAEdilmaGUME Tanya YING - 10/23/2014 12:44 CDT Marine Coma Eye Opening Response Clare : Spontaneously Best Verbal Response Clare : Oriented Best Motor Response Clare : Obeys simple commands Clare Coma Score : 15 ALFONZO ACHARYAEdilmaGUME Tanya YING - 10/23/2014 12:44 CDT Oral Exam - Swing Bed Teeth and supporting structure for : No abnormality Oral Cavity Tissue for : No abnormality Gums for : No abnormality Are there any swollen lymph nodes in neck : No ALFONZO TENORIO GUME Tanya YING - 10/23/2014 12:44 CDT Oral Assessment Lips : Smooth, pink, moist, intact Gingiva : [place], smooth, moist, intact Tongue : Smooth, pink, moist, intact Saliva : Thin, watery, plentiful ALFONZO ELISEOREBAEdilma JHONATANBrigitte Martínez RN - 10/23/2014 [...] Adequate to Meet Safety Needs : Yes GUEM COOLEY RN - 10/23/2014 12:44 CDT Gastrointestinal [...] Integrity : Intact Mucous Membrane Color : [place] Mucous Membrane Description : Moist GUME COOLEY RN - 10/23/2014 12:44 CDT Skin Abnormality/Location Grid Location : Abdomen Hand Laterality : Left, Right Left, Right Abnormality : Bruising Bruising GUME COOLEY RN - 10/23/2014 12:44 CDT GUME COOLEY RN - 10/23/2014 12:44 CDT Foot Press Operator Integumentary - Grid Foot Press Operator : Electrode GUME COOLEY RN - 10/23/2014 [...] COOLEY RN - 10/23/2014 12:44 CDT Source: [facility] [employer] Document Id: [id number] CDT!179 Miscellaneous - Conversion, Historical Provider Ser [...] Yes/No : No Nail Bed Color : [place] Capillary Refill : Less than 2 seconds [...] - 10/22/2014 23:40 CDT Skin Color : [place] Skin Description : Normal Skin Temperature : Warm Activity Tolerance : Without distress MIR SALINAS RN - 10/22/2014 23:40 CDT Neurological Orientation : Oriented x 3 Level of Consciousness : Alert Gait : Steady Last Well Time Known : Not applicable MIR SALINAS RN - 10/22/2014 23:44 CDT Clare Coma Eye Opening Response Clare : Spontaneously Best Verbal Response Clare : Oriented Best Motor Response Clare : Obeys simple commands Clare Coma Score : 15 MIR SALINAS RN - 10/22/2014 23:44 CDT Oral Assessment Lips : Smooth, pink, moist, intact Gingiva : [place], smooth, moist, intact Tongue : Smooth, pink, [...] Integrity : Intact Mucous Membrane Color : [place] Mucous Membrane Description : Moist MIR SALINAS RN - 10/22/2014 23:44 CDT Foot Press Operator Integumentary - Grid Foot Press Operator : Electrode Assessment/Action : Not removed Skin Appearance : Normal MIR SALINAS RN - 10/22/2014 23:44 CDT Skin Color : [place] Skin Description : Normal Skin Temperature : Warm MIR SALINAS RN - 10/22/2014 23:44 CDT Shawn Sensory Perception Shawn : No impairment Moisture Shawn : Rarely moist Activity Shawn : Walks frequently Mobility Hsawn : No limitations Nutrition Shawn : Adequate [...] SALINAS RN - 10/22/2014 23:44 CDT Source: [email or web address] Document Id: [id number] CDT!118 Miscellaneous - Conversion, Historical Provider Ser [...] SALINAS RN - 10/22/2014 23:39 CDT Source: [employer] Document Id: [id number] CDT!12 Miscellaneous - Juan Antonio Beckford RXeniaNXenia [...] Yes/No : Yes Nail Bed Color : [place] Capillary Refill : Less than 2 seconds [...] ANTONIO BECKFORD RN - 10/22/2014 17:42 CDT Marine Coma Eye Opening Response Marine : Spontaneously Best Verbal Response Marine : Oriented Best Motor Response Clare : Obeys simple commands Clare Coma Score : 15 JUAN ANTONIO BECKFORD [...] Integrity : Intact Mucous Membrane Color : [place] Mucous Membrane Description : Moist JUAN ANTONIO BECKFORD RN - 10/22/2014 17:42 CDT Foot Press Operator Integumentary - Grid Foot Press Operator : Electrode JUAN ANTONIO BECKFORD RN - [...] BECKFORD RN - 10/22/2014 17:42 CDT Source: [facility] [employer] Document Id: [id number] CDT!107 Miscellaneous - Juan Antonio Beckford R.N. [...] Done Cough : None JUAN ANTONIO BECKFORD [facility] 10/22/2014 9:26 CDT Cardiovascular Heart Rhythm : Regular Heart Sounds ICU : S1S2 Antiembolism Device Yes/No : Yes Nail Bed Color : [place] Capillary Refill : Less than 2 seconds Edema Assessment : No JUAN ANTONIO BECKFORD [facility] 10/22/2014 9:26 CDT Radial Pulse, Left : 2+ Normal Radial Pulse, Right : 2+ Normal Dorsalis Pedis Pulse, Left : 2+ Normal Dorsalis Pedis Pulse, Right : 2+ Normal JUAN ANTONIO BECKFORD [facility] 10/22/2014 9:26 CDT Skin Color : Normal for ethnicity Skin Description : Normal Skin Temperature : Warm Activity Tolerance : Without distress JUAN ANTONIO BECKFORD [facility] 10/22/2014 9:26 CDT Antiembolism Device Antiembolism Device : Other: heparin JUAN ANTONIO BECKFORD [facility] 10/22/2014 9:26 CDT Neurological Neuro Patient Stated Symptoms : None Orientation : Oriented x 3 Level of Consciousness : Alert Gait : Steady Last Well Time Known : Not applicable JUAN ANTONIO BECKFORD [facility] 10/22/2014 9:26 CDT Marine Coma Eye Opening Response Marine : Spontaneously Best Verbal Response Clare : Oriented Best Motor Response Marine : Obeys simple commands Clare Coma Score : 15 JUAN ANTONIO BECKFORD [facility] 10/22/2014 9:26 CDT Psycho/Emotional Affect/Behavior : Calm, Cooperative, Appropriate Pain Symptoms : No JUAN ANTONIO BECKFORD [facility] 10/22/2014 9:26 CDT Coping Grid Identifies [...] Values/Beliefs incorporated appropriately : Yes LÓPEZJAQUELINCyndi Bolton - 10/22/2014 9:26 CDT Safety Grid Vision, Hearing, Mobility Adequate to Meet Safety Needs : Yes LÓPEZJUAN ANTONIO Wong [facility] 10/22/2014 9:26 CDT Gastrointestinal GI Patient Stated Symptoms : None Abdomen Description : Rounded, Symmetric Abdomen Palpation : Non-Tender, Soft Bowel Movement Last Date : 10/22/2014 CDT Bowel Sounds All Quadrants : Present Passing Flatus : Yes JUAN ANTONIO BECKFORD RN - 10/22/2014 9:26 CDT Nutrition Appetite : Good Eating Difficulties : None Feeding Ability : Complete independence LÓPEZ JUAN ANTONIO M RN - 10/22/2014 9:26 CDT Genitourinary Patient Stated Symptoms : None Urinary Elimination : Voiding, no difficulties Urine Color : Yellow Urine Description : Clear Bladder Distention : Absent JUAN ANTONIO BECKFORD RN - 10/22/2014 9:26 CDT Integumentary Skin Turgor : Elastic Skin Integrity : Intact Mucous Membrane Color : [place] Mucous Membrane Description : Moist JUAN ANTONIO BECKFORD RN - 10/22/2014 9:26 CDT Foot Press Operator Integumentary - Grid Foot Press Operator : Electrode JUAN ANTONIO BECKFORD RN - [...] BECKFORD RN - 10/22/2014 9:26 CDT Source: [employer] Document Id: [id number] CDT!109 Miscellaneous - Conversion, Historical Provider Ser [...] Yes/No : Yes Nail Bed Color : [place] Capillary Refill : Less than 2 seconds Edema Assessment : No Monitored Rhythm : Yes MIR SALINAS RN - 10/22/2014 1:11 CDT Radial Pulse, Left : 2+ Normal Radial Pulse, Right : 2+ Normal Dorsalis Pedis Pulse, Left : 2+ Normal Dorsalis Pedis Pulse, Right : 2+ Normal MIR SALINAS RN - 10/22/2014 1:11 CDT Skin Color : [place] Skin Description : Normal Skin Temperature : [...] Response Marine : Oriented Best Motor Response Clare : Obeys simple commands Clare Coma Score : 15 MIR SALINAS RN - 10/22/2014 1:11 CDT Oral Assessment Lips : Smooth, pink, moist, intact Gingiva : [place], smooth, moist, intact Tongue : Smooth, pink, [...] Integrity : Intact Mucous Membrane Color : [place] Mucous Membrane Description : Moist MIR SALINAS RN - 10/22/2014 1:11 CDT Foot Press Operator Integumentary - Grid Foot Press Operator : Electrode Assessment/Action : Not removed Skin Appearance : Normal MIR SALINAS RN - 10/22/2014 1:11 CDT Skin Color : [place] Skin Description : Normal Skin Temperature : [...] SALINAS RN - 10/22/2014 1:11 CDT Source: [employer] Document Id: [id number] CDT!146 Miscellaneous - Juan Antonio Beckford R.N. [...] Yes/No : Yes Nail Bed Color : [place] Capillary Refill : Less than 2 seconds [...] ANTONIO BECKFORD RN - 10/21/2014 18:51 CDT Clare Coma Eye Opening Response Clare : Spontaneously Best Verbal Response Clare : Oriented Best Motor Response Clare : Obeys simple commands Marine Coma Score [...] Ability : Complete independence JUAN ANTONIO BECKFORD Hoang - 10/21/2014 18:51 CDT Genitourinary Patient Stated Symptoms : None Urinary Elimination : Voiding, no difficulties Urine Color : Yellow Urine Description : Clear Bladder Distention : Absent LÓPEZ JUAN ANTONIO M - 10/21/2014 18:51 CDT Integumentary Integumentary Patient Stated Symptoms : None Skin Turgor : Elastic Skin Integrity : Intact Mucous Membrane Color : [place] Mucous Membrane Description : Moist LÓPEZ JUAN ANTONIO M - 10/21/2014 18:51 CDT Foot Press Operator Integumentary - Grid Foot Press Operator : Electrode LÓPEZJUAN ANTONIO BRIGGS Hoang - 10/21/2014 18:51 CDT Skin Color : Normal for ethnicity Skin Description : Normal Skin Temperature : Warm LÓPEZJUAN ANTONIO MENDOZA - 10/21/2014 18:51 CDT Shawn Sensory Perception [...] Fall Risk Score Hendrich II : 4 LÓPEZJUAN ANTONIO BRIGGS - 10/21/2014 18:51 CDT Safe Patient Handling [...] BECKFORD RN - 10/21/2014 18:51 CDT Source: [employer] Document Id: [id number] CDT!114 Jarod - Andrés Infante R.N. - 10/21/2014 2:26 PM CDT Adult Activities of Daily Living Adult Activities of Daily Living Entered On: 10/21/2014 14:26 CDT Performed On: 10/21/2014 14:26 CDT by ANDRÉS INFANTE RN ADLs I Activity Status ADL : Bathroom privileges ANDRÉS INFANTE RN - 10/21/2014 14:26 CDT Source: [employer] Document Id: [id number] CDT!3 Jarod - Juan Antonio Beckford R.N. [...] Yes/No : Yes Nail Bed Color : [place] Capillary Refill : Less than 2 seconds Edema Assessment : No JUAN ANTONIO BECKFORD - 10/21/2014 10:13 CDT Radial Pulse, Left : 2+ Normal Radial Pulse, Right : 2+ Normal Dorsalis Pedis Pulse, Left : 2+ Normal Dorsalis Pedis Pulse, Right : 2+ Normal JUAN ANTONIO BECKFORD - 10/21/2014 10:13 CDT Skin Color : Normal for ethnicity Skin Description : Normal JUAN ANTONIO BECKFORD - 10/21/2014 10:13 CDT Antiembolism Device Antiembolism Device : Other: lovenox JUAN ANTONIO BECKFORD - 10/21/2014 10:13 CDT Neurological Neuro Patient Stated Symptoms : None Orientation : Oriented x 3 Level of Consciousness : Alert Gait : Steady Swallowing Difficulty/Aspiration Risk : None Last Well Time Known : Not applicable JUAN ANTONIO BECKFORD - 10/21/2014 10:13 CDT Clare Coma Eye Opening Response Marine : Spontaneously Best Verbal Response Marine : Oriented Best Motor Response Marine : Obeys simple commands Marine Coma Score : 15 JUAN ANTONIO BECKFORD - 10/21/2014 10:13 CDT Psycho/Emotional Affect/Behavior : Calm, Cooperative, Appropriate Pain Symptoms : No Feels Rested : Yes LÓPEZ, MEGAN Hoang - 10/21/2014 10:13 CDT Coping Grid Identifies [...] Values/Beliefs incorporated appropriately : Yes LÓPEZJAQUELINCyndi Bolton - 10/21/2014 10:13 CDT Safety Grid Vision, Hearing, Mobility Adequate to Meet Safety Needs : Yes LÓPEZJUAN ANTONIO Wong [facility] 10/21/2014 10:13 CDT Gastrointestinal GI Patient Stated Symptoms : None Abdomen Description : Rounded, Symmetric Abdomen Palpation : Non-Tender, Soft Bowel Movement Last Date : 10/21/2014 CDT Bowel Sounds All Quadrants : Present Stool Description : Loose Passing Flatus : Yes LÓPEZJAQUELINN Hoang - 10/21/2014 10:13 CDT Nutrition Appetite : Good Eating Difficulties : None Feeding Ability : Complete independence LÓPEZ, JUAN ANTONIO M - 10/21/2014 10:13 CDT Genitourinary Patient Stated Symptoms : None Urinary Elimination : Voiding, no difficulties Urine Color : Yellow Urine Description : Clear Bladder Distention : Absent JUAN ANTONIO BECKFORD - 10/21/2014 10:13 CDT Integumentary Integumentary Patient Stated Symptoms : None Skin Turgor : Elastic Skin Integrity : Intact Mucous Membrane Color : [place] Mucous Membrane Description : Moist LÓPEZJUAN ANTONIO Wong - 10/21/2014 10:13 CDT Foot Press Operator Integumentary - Grid Foot Press Operator : Electrode Assessment/Action : Not removed JUAN [...] II : 0 LÓPEZ JUAN ANTONIO M RN - 10/21/2014 10:13 CDT Safe Patient [...] BECKFORD RN - 10/21/2014 10:13 CDT Source: [employer] Document Id: [id number] CDT!134 Miscellaneous - Conversion, Historical Provider Ser [...] Yes/No : Yes Nail Bed Color : [place] Capillary Refill : Less than 2 seconds Edema Assessment : No Monitored Rhythm : Yes MIR SALINAS RN - 10/21/2014 1:05 CDT Radial Pulse, Left : 2+ Normal Radial Pulse, Right : 2+ Normal Dorsalis Pedis Pulse, Left : 2+ Normal Dorsalis Pedis Pulse, Right : 2+ Normal MIR SALINAS RN - 10/21/2014 1:05 CDT Skin Color : [place] Skin Description : Normal Skin Temperature : [...] Last Well Time Known : Not applicable SALINASMIR Xander YING - 10/21/2014 1:05 CDT Marine Coma Eye Opening Response Marine : To voice Best Verbal Response Clare : Oriented Best Motor Response Marine : Obeys simple commands Clare Coma Score : 14 MIR SALINAS RN - 10/21/2014 1:05 CDT Oral Assessment Lips : Smooth, pink, moist, intact Gingiva : [place], smooth, moist, intact Tongue : Smooth, pink, [...] to Meet Safety Needs : Yes (Comment: [place] aides here out for the night [MIR [...] Integrity : Intact Mucous Membrane Color : [place] Mucous Membrane Description : Moist MIR SALINAS RN - 10/21/2014 1:05 CDT Foot Press Operator Integumentary - Grid Foot Press Operator : Electrode Assessment/Action : Not removed Skin Appearance : Normal MIR SALINAS RN - 10/21/2014 1:05 CDT Skin Color : [place] Skin Description : Normal Skin Temperature : [...] SALINAS RN - 10/21/2014 1:05 CDT [facility] Document Id: [id number] CDT!135 Miscellaneous - Conversion, Historical Provider Ser [...] SALINAS RN - 10/21/2014 1:04 CDT Source: [employer] Document Id: [id number] CDT!11 Miscellaneous - Alicia Sheikh RXeniaNXenia - 10/20/2014 3:40 PM CDT Adult Ongoing [...] Yes/No : Yes Nail Bed Color : [place] Capillary Refill : Less than 2 seconds [...] SHEIKH 10/20/2014 17:40 CDT Skin Color : [place] Skin Description : Dry Skin Temperature : [...] Not applicable ALICIA SHEIKH 10/20/2014 17:40 CDT Clare Coma Eye Opening Response Marine : Spontaneously Best Verbal Response Clare : Oriented Best Motor Response Marine : Obeys simple commands Clare Coma Score : 15 ALICIA SHEIKH 10/20/2014 17:40 CDT Oral Assessment Lips : Smooth, pink, moist, intact Gingiva : [place], smooth, moist, intact Tongue : Smooth, pink, [...] Meet Safety Needs : Yes ALICIA SHEIKH Jaspreet 10/20/2014 17:40 CDT Gastrointestinal GI Patient Stated Symptoms : None Abdomen Description : Symmetric Abdomen Palpation : Soft Bowel Sounds All Quadrants : Present DAVID SHEIKHEdilma Vogel RN - 10/20/2014 17:40 CDT Genitourinary Patient Stated Symptoms : None Urinary Elimination : Voiding, no difficulties Urine Color : Yellow, Light Urine Description : Clear Urine Odor : Odorless ALICIA SHEIKH Jaspreet RN - 10/20/2014 17:40 CDT Integumentary Integumentary Patient Stated Symptoms : None ILEANACYNTHIAALICIA RN - 10/20/2014 17:40 CDT Shawn Sensory [...] the needle Site Condition : No complications ILEANAZEYNEPALICIA GALAN RN - 10/20/2014 17:40 CDT ALICIA SHEIKH [...] SHEIKH RN - 10/20/2014 17:40 CDT Source: [employer] Document Id: [id number] CDT!122 Miscellaneous - Krystyna rGoss - 10/20/2014 9:00 AM CDT Team Meeting Notes Team Meeting Notes Entered On: 10/20/2014 9:01 CDT Performed On: 10/20/2014 9:00 CDT by KRYSTYNA GROSS Team Notes Team Meeting Grid Discipline : Executive Vp, Family, Airplane Cover Maker, Nurse, Patient, Health Information Assistant Topics : Plan of care Goal of the Day : Pt was admitted with afib, low BP and urosepsis. She will be on some antibiotics. Comes from home alone and does well. KRYSTYNA GROSS - 10/20/2014 9:00 CDT Source: [employer] Document Id: [id number] CDT!7 Miscellaneous - Alicia Sheikh, RXeniaNXenia - 10/20/2014 8:47 AM CDT Adult Activities [...] SHEIKH RN - 10/20/2014 11:47 CDT Source: [employer] Document Id: [id number] CDT!17 Miscellaneous - Alicia Sheikh R.N. - [...] Yes/No : Yes Nail Bed Color : [place] Capillary Refill : Less than 2 seconds [...] - 10/20/2014 11:49 CDT Skin Color : [place] Skin Description : Dry Skin Temperature : [...] ALICIA SHEIKH RN - 10/20/2014 11:49 CDT Clare Coma Eye Opening Response Clare : Spontaneously Best Verbal Response Clare : Oriented Best Motor Response Clare : Obeys simple commands Marine Coma Score : 15 ALICIA SHEIKH RN - 10/20/2014 11:49 CDT Oral Assessment Lips : Smooth, pink, moist, intact Gingiva : [place], smooth, moist, intact Tongue : Smooth, pink, [...] Integrity : Intact Mucous Membrane Color : [place] Mucous Membrane Description : Moist Skin Color : [place] Skin Description : Dry Skin Temperature : [...] SHEIKH RN - 10/20/2014 11:49 CDT Source: [employer] Document Id: [id number] CDT!129 Miscellaneous - Alisha Walton R.N. - [...] WALTON RN - 10/20/2014 4:27 CDT Source: [employer] Document Id: [id number] CDT!3 Miscellaneous - Alisha Walton R.N. - [...] WALTON RN - 10/20/2014 4:29 CDT Source: [employer] Document Id: [id number] CDT!5 Lindycellaneous - Alisha Walton R.N. - [...] ICU : S1S2 Nail Bed Color : [place] Capillary Refill : Less than 2 seconds [...] Activity Tolerance : Without distress ALISHA WALTON RN - 10/19/2014 22:53 CDT Cardiac Rhythm Techs Monitoring Lead : II Atrial Rate : 78 bpm Atrial Rhythm : Regular Ventricular Rate : 78 bpm Ventricular Rhythm : Regular [place] Interval : 0.17 QRS Duration : 0.06 second(s) QT Interval : 0.36 second(s) [place] Consistency : Consistent QRS Consistency : Consistent [...] 22:53 CDT Marine Coma Eye Opening Response Clare : Spontaneously Best Verbal Response Marine : [...] Integrity : Intact Mucous Membrane Color : [place] Mucous Membrane Description : Moist Skin Color [...] WALTON RN - 10/19/2014 22:53 CDT Source: [facility] [employer] Document Id: [id number] CDT!17 Miscellaneous - Alisha Walton, R.N. - [...] Information Given By : Patient Languages : Slovenian Is Patient Female and 14-50 no hysterectomy [...] Screen/Safety Assmt : No Coping : Effective Cheondoism Preference : Unknown ALISHA WALTON RN - [...] WALTON RN - 10/19/2014 22:45 CDT [facility] Document Id: [id number] CDT!38 Miscellaneous - Alisha Walton RXeniaN. - 10/19/2014 10:38 PM CDT Basic Admission [...] Birch RN - 10/19/2014 22:43 CDT Source: [facility] [employer] Document Id: [id number] CDT!6 documented in this encounter Plan of [...] (ABNORMAL) Automated Differential (10/24/2014 6:09 AM CDT) [facility] [employer] Method Time Signature Absolute 1.65 (L) 1.70 [...] CBC with Differential (10/24/2014 6:09 AM CDT) [facility] [employer] Method Time Signature Leukocytes 4.4 3.5 - 10.5 POWERCHART X109L Erythrocytes 3.39 (L) 3.90 - POWERCHART 5.03 [id number] Hemoglobin 10.1 (L) 12.0 - POWERCHART 15.5 [...] (Comprehensive Metabolic Panel) (10/24/2014 6:09 AM CDT) [facility] [employer] Method Time Signature Alanine 15 7 - [...] MLMINSA eGFR Black/ 27.7 (L) >=60.0 POWERCHART Citizen [place] MLMINSA Bilirubin, Total, S 0.2 <=1.2 MGDL [...] CBC with Differential (10/23/2014 6:28 AM CDT) [facility] [employer] Method Time Signature Leukocytes 4.5 3.5 - 10.5 POWERCHART X109L Erythrocytes 3.42 (L) 3.90 - POWERCHART 5.03 [id number] Hemoglobin 10.3 (L) 12.0 - POWERCHART 15.5 [...] (Comprehensive Metabolic Panel) (10/23/2014 6:28 AM CDT) [facility] [employer] Method Time Signature Alanine 13 7 - [...] MLMINSA eGFR Black/ 26.2 (L) >=60.0 POWERCHART Citizen [place] MLMINSA Bilirubin, Total, S 0.2 <=1.2 MGDL [...] Negative Negative POWERCHART MGDL Specific <=1.005 POWERCHART [place], POCT, U HXBLOOD Negative Negative POWERCHART pH, [...] CBC with Differential (10/22/2014 6:12 AM CDT) [facility] Method Time Signature Leukocytes 5.7 3.5 - 10.5 POWERCHART X109L Erythrocytes 3.47 (L) 3.90 - POWERCHART 5.03 [id number] Hemoglobin 10.4 (L) 12.0 - POWERCHART 15.5 [...] M.D. LAB BLOOD ADD-ON Performing Organization Address City/[facility] Code Phon e Number POWERCHART (ABNORMAL) CMP (Comprehensive Metabolic Panel) (10/22/2014 6:12 AM CDT) [facility] Method Time Signature Alanine 12 7 - [...] MLMINSA eGFR Black/ 23.7 (L) >=60.0 POWERCHART Citizen [place] MLMINSA Bilirubin, Total, S 0.2 <=1.2 MGDL [...] Erythrocytes 3.34 (L) 3.90 - POWERCHART 5.03 [id number] Hemoglobin 10.0 (L) 12.0 - POWERCHART 15.5 [...] M.D. LAB BLOOD ADD-ON Performing Organization Address City/[facility]/ZIP Code Phon e Number POWERCHART Vitamin B12 [...] Total Iron-Binding Capacity (10/21/2014 6:28 AM CDT) athologist Signature Iron 30 (L) 37 - [...] MLMINSA eGFR Black/ 20.7 (L) >=60.0 POWERCHART Citizen [place] MLMINSA Bilirubin, Total, S 0.2 <=1.2 MGDL POWERCHAR T Total Protein, S 5.3 (L) 6.3 - 7.9 POWERCHART GDL Glucose 98 70 - 140 POWERCHART MGDL Specimen (Source) Anatomical Collection Method Collection Time Re ceived Time Location / / Volume Laterality Blood 10/21/2014 6:28 AM CDT Jose Daniel Baldwin M.D. LAB BLOOD ADD-ON Performing Organization Address City/[facility] Code Phon e Number POWERCHART (ABNORMAL) Automated Differential (10/20/2014 6:29 PM CDT) [facility] gist Method Time Signature Absolute 2.23 1.70 - [...] M.D. LAB BLOOD ADD-ON Performing Organization Address [facility] Phon e Number POWERCHART (ABNORMAL) CBC with Differential (10/20/2014 6:29 PM CDT) [facility] [employer] Method Time Signature Leukocytes 4.9 3.5 - 10.5 POWERCHART X109L Erythrocytes 3.40 (L) 3.90 - POWERCHART 5.03 [id number] Hemoglobin 10.3 (L) 12.0 - POWERCHART 15.5 [...] M.D. LAB BLOOD ADD-ON Performing Organization Address City/[facility] Phon e Number POWERCHART (ABNORMAL) CMP (Comprehensive Metabolic Panel) (10/20/2014 6:29 PM CDT) [facility] gist Method Time Signature Alanine 12 7 - [...] MLMINSA eGFR Black/ 20.7 (L) >=60.0 POWERCHART Citizen [place] MLMINSA Bilirubin, Total, S 0.2 <=1.2 MGDL [...]
--- NOTE | 2022-03-21 11:15 | CRLHL7_ITS ---
For Patients: As a result of the Century Cures Act, medical imaging exams and procedure reports are released immediately into your electronic medical record. You may view this report before your referring provider. If you have questions, please contact your health care provider. INDICATION: Memory loss. TECHNIQUE: Brain MRI without contrast. The following sequences were obtained: Sagittal T1 weighted sequence. DWI and ADC mapping sequences. Axial FLAIR and PILI T2 weighted sequences. Coronal T2 weighted sequence. COMPARISON: None. FINDINGS: No evidence of acute ischemia. No evidence of acute or chronic intracranial blood products. Patchy FLAIR hyperintensities within the supratentorial white matter and brainstem, typical for chronic microvascular ischemic change. Moderate generalized parenchymal volume loss with more advanced atrophy of the hippocampal formations. No mass effect or herniation. No hydrocephalus or extra-axial collections. The pituitary gland, parasellar structures and optic chiasm are normal. All the major intracranial vascular structures demonstrate normal flow-related signal. The orbital contents are normal. No calvarial or skull base marrow replacing process. No obstructive sinus disease. Bilateral partial mastoid effusions. No extracranial soft tissue findings. IMPRESSION: 1. No evidence of acute transcortical ischemia or other acute intracranial pathology. 2. Moderately extensive chronic microvascular ischemic changes within the supratentorial white matter and brainstem. 3. Moderate generalized parenchymal volume loss with more advanced atrophy of the hippocampal formations. Consider neurodegenerative process versus normal senescent change. Dictated by Hector Lovett MD @ 03/21/2022 12:45:00 PM (Electronically Signed)
== END 2022-03-21 10:19 | disposition home or self-care (01) ==
PROVIDERS: PCP Family Medicine; Visit Provider Family Medicine
DX: R41.0 Disorientation, unspecified (principal); I67.82 Cerebral ischemia; E78.5 Hyperlipidemia, unspecified; I10 Essential (primary) hypertension; G93.9 Disorder of brain, unspecified
CPT/HCPCS: 70551; 80053; 82607; 84443

== ENCOUNTER 2022-03-25 15:04 | Outpatient (CLI) | payer MEDICARE, BC, SELFPAY | END 2022-03-25 15:05 | disposition home or self-care (01) | LOC: LKVREF 04-01 12:12 | PROVIDERS: PCP Family Medicine; Visit Provider Emergency Medicine | DX: R39.15 Urgency of urination (principal); N39.0 Urinary tract infection, site not specified | CPT/HCPCS: 87086 ==

== ENCOUNTER 2022-09-15 20:37 | Observation (INO) | payer MEDICARE, BC, SELFPAY ==
[2022-09-15] VITALS (36 sets, daily range): BP systolic 141–171; BP diastolic 61–87; PULSE 68–85; RESP 18; TEMP 36.7; O2SAT 83–100; BMI 21.5
--- NOTE | 2022-09-15 20:39 | CRLHL7_ITS ---
For Patients: As a result of the Century Cures Act, medical imaging exams and procedure reports are released immediately into your electronic medical record. You may view this report before your referring provider. If you have questions, please contact your health care provider. INDICATION: Acute stroke. TECHNIQUE: CTA neck with contrast bolus tracking, 3D angiographic rendering using maximum intensity projection (MIP) and images permanently archived. FINDINGS: There is minor carotid atherosclerosis. There is no significant carotid artery stenosis or dissection. There is no significant vertebral artery stenosis or dissection. There is a 17 mm indeterminate nodule at the posterior inferior aspect of the right thyroid. The cervical spine is in normal alignment. Degenerative changes are noted in the cervical spine. IMPRESSION: 1. No significant carotid or vertebral artery stenosis or dissection. 2. Incidental large right thyroid nodule; sonography+/-FNA may be helpful for further evaluation if clinically indicated. Discussed with Antonia Hamilton RN at 1 p.m. on 09/16/22. Please note that all CT scans at this facility use dose modulation, iterative reconstruction, and/or weight-based dosing when appropriate to reduce radiation dose to as low as reasonably achievable. Dictated by Esteban Smith MD @ 09/16/2022 12:53:12 PM (Electronically Signed)
--- NOTE | 2022-09-15 20:39 | CRLHL7_ITS ---
For Patients: As a result of the Century Cures Act, medical imaging exams and procedure reports are released immediately into your electronic medical record. You may view this report before your referring provider. If you have questions, please contact your health care provider. INDICATION: Confusion, right-sided facial droop. TECHNIQUE: Head CT without contrast. COMPARISON: None. FINDINGS: CSF spaces: Disproportionate prominence of the ventricles compared to sulci. Brain parenchyma: Mild diffuse volume loss. Patchy white matter low attenuation changes, nonspecific but likely reflecting chronic small vessel ischemic disease. No sign of mass, hemorrhage, or midline shift. Atherosclerotic calcifications of the cavernous carotids and carotid siphons. Skull base and calvarium: The visualized paranasal sinuses and mastoid air cells demonstrate no acute or significant findings. Bilateral lens extraction. No skull fractures. Edentulous maxilla. IMPRESSION: 1. No evidence of acute intracranial hemorrhage, large transcortical infarct, or mass effect. 2. Disproportionate prominence the ventricles compared to sulci. Findings are nonspecific but may be seen in the setting of central atrophy or communicating hydrocephalus. Please note that all CT scans at this facility use dose modulation, iterative reconstruction, and/or weight-based dosing when appropriate to reduce radiation dose to as low as reasonably achievable. Dictated by Rosas Alexander MD @ 09/15/2022 9:15:20 PM (Electronically Signed)
--- NOTE | 2022-09-15 20:44 | CRLHL7_ITS ---
For Patients: As a result of the Century Cures Act, medical imaging exams and procedure reports are released immediately into your electronic medical record. You may view this report before your referring provider. If you have questions, please contact your health care provider. INDICATION: Acute stroke. TECHNIQUE: CTA head with contrast bolus tracking, 3D angiographic rendering using maximum intensity projection (MIP) and images permanently archived. FINDINGS: There is scattered intracranial atherosclerotic disease. There is normal opacification of the intracranial vasculature. There is no large vessel occlusion. No aneurysm is identified. IMPRESSION: No large vessel occlusion. Please note that all CT scans at this facility use dose modulation, iterative reconstruction, and/or weight-based dosing when appropriate to reduce radiation dose to as low as reasonably achievable. Dictated by Esteban Smith MD @ 09/16/2022 12:48:53 PM (Electronically Signed)
[2022-09-15 21:04] LABS: Basophils Absolute Auto 0.04 K/uL (0.00-0.30); Basophils Percent Auto 0.8 % (0.0-3.0); Eosinophils Absolute Auto 0.11 K/uL (0.00-0.50); Eosinophils Percent Auto 2.2 % (0.0-7.0); Hematocrit 40.9 % (33.0-51.0); Hemoglobin* 13.7 gm/dL (12.0-16.0); Immature Granulocytes Abs Auto 0.01 K/uL (0.00-0.30); Immature Granulocytes Pct Auto 0.2 %; Lymphocytes Absolute Auto 2.07 K/uL (0.90-2.90); Lymphocytes Percent Auto 41.1 % (20-44); Mean Corpuscular HGB Conc 34 gm/dL (32-36); Mean Corpuscular Hemoglobin 29 pg (26-34); Mean Corpuscular Volume 87 fL (80-100); Monocytes Percent Auto 12.1 % (0.0-11.0); Neutrophils Percent Auto 43.6 % (42.0-72.0); Platelet Count* 235 K/uL (140-440); RDW Coefficient of Variation % 14.8 % (11.5-15.5); White Blood Count* 5.04 K/uL (4.50-11.00)
--- NOTE | 2022-09-15 21:06 | ED_ITS ---
HPI - General Adult General Chief complaint: Altered Mental Status Stated complaint: Possible Stroke Time Seen by Provider: 09/15/22 20:42 History of Present Illness HPI narrative: 86-year-old woman resident of Memory Care Unit brought by EMS elevated to red stroke code. Initially reported as last known well at 7:10 a.m. son indicating that she was just behaving quite atypically and apparently having weak manager library strength as related by EMS. Conversation further with son he sounds as though last known well was actually 6:00 p.m. where was eating supper and slumped over the table. It is not clear that there was ever loss of consciousness. Was returned to her room. Continued to be atypically less responsive status. On multiple assessments initially I meet her in the back [place] on the way to [place]. Eyes are closed tight. She is able to follow commands though. I do not appreciate any motor deficits on cursory examination. She is not answering any questions though particularly coherently. He was articulating some words clearly. On reassessment appears to be complaining of pain though location this pain seems to vary between abdomen, neck, arms. Related Data Home Medications Medication Instructions Recorded Confirmed cholecalciferol (vitamin D3) 50 50 mcg PO QDAY 12/27/21 06/20/22 mcg (2,000 unit) capsule artifi.tears(hypromellose)(PF) 0.3 1 drp ophthalmic (eye) Q4-6H PRN 01/21/22 09/15/22 % eye drops [id number] 3.5 4 drp otic (ear) Q8H 01/21/22 06/20/22 mg-10,000 unit/mL-1 % ear drops,susp acetaminophen 500 mg capsule 1,000 mg PO BID PRN 09/15/22 09/15/22 amlodipine 2.5 mg tablet 2.5 mg PO QDAY 09/15/22 09/15/22 aspirin 81 mg tablet,delayed 81 mg PO DAILY 09/15/22 09/15/22 release (Adult Aspirin Regimen) carbamide peroxide 6.5 % ear drops 4 drp otic (ear) .weekly 09/15/22 09/15/22 (Debrox) multivitamin (Daily Multi-Vitamin 1 tab PO DAILY 09/15/22 09/15/22 tablet) quetiapine 25 mg tablet 12.5 mg PO QAM 09/15/22 09/15/22 sertraline 50 mg tablet 75 mg PO QDAY 09/15/22 09/15/22 Previous Rx's Medication Instructions Recorded simvastatin 10 mg tablet 10 mg PO QPM #90 tabs 12/02/21 cephalexin 500 mg capsule 500 mg PO TID #21 caps 02/03/22 estradiol 0.01% (0.1 mg/gram) 1 g vaginal 2XW #42.5 grams 02/19/22 vaginal cream furosemide 20 mg tablet 20 mg PO QAM #90 tabs 05/30/22 Allergies Allergy/AdvReac Type Severity Reaction Status Date / Time iron Allergy Unknown Verified 05/30/22 15:31 Sulfa (Sulfonamide Allergy Unknown Rash Verified 05/30/22 15:31 Antibiotics) adhesives Allergy Unknown Rash Uncoded 05/30/22 15:31 Review of Systems Status of ROS: Reports: unobtainable due to medical condition and unobtainable due to mental status PFSH PFS Surgical History History of nephrectomy, left ?Z90.5 - Acquired absence of kidney (ICD-10) Status post bilateral cataract extraction ?Z98.41 - Cataract extraction status, right eye (ICD-10) ?Z98.42 - Cataract extraction status, left eye (ICD-10) S/P breast biopsy ?Z98.890 - Other specified postprocedural states (ICD-10) S/P cataract extraction ?Z98.49 - Cataract extraction status, unspecified eye (ICD-10) S/P appendectomy ?Z90.49 - Acquired absence of other specified parts of digestive tract (ICD- 10) S/P cholecystectomy ?Z90.49 - Acquired absence of other specified parts of digestive tract (ICD- 10) Social History Smoking Status: Never smoker Do you use any of these nicotine containing products: None Second hand tobacco smoke exposure: No How often do you have a drink containing alcohol: never How often do you have six or more drinks on one occasion: Never AUDIT-C Alcohol total score: 0 Non-prescribed substance use: denies use service: No Exam Narrative: Exam Narrative: Either closed tightly. Vocalizing or tremulous lately. At times intelligible words. I do not appreciate that she is actually slurring words. Seems to understand commands as well. Cranial nerves 2 through 12 look to be intact. Face is symmetrical as noted. Head is atraumatic. Neck is supple. On that initial exam I do not appreciate neck pain. Head looks to be atraumatic. Lungs appear to be clear. Heart with regular rate and rhythm; occasional regular beat. Abdomen with normoactive bowel sounds is soft and appears to be tender in the right lower abdomen/quadrant. This is a little inconsistent but on questioning again compensating for hard of hearing, does appear to have pain in this low abdomen. Lower extremities are without edema. She while generally a little weak, is able to elevate her arms and legs from the bed holding them briefly before releasing. Cannot assess sensory deficits. GCS of 13-14. Moaning at times in apparent discomfort. Hard of hearing it appears. Labored and agitated breathing through somewhat clenched teeth. Const: Vital Signs, click to edit/add: Vital Signs - 24 hr 09/15/22 20:50 09/15/22 21:03 09/15/22 21:11 Temperature 98.0 F Pulse Rate Pulse Rate [Right Pulse Oximeter] 74 Respiratory Rate 18 Blood Pressure 161/79 H 169/70 H Blood Pressure [Le ft Upper Arm] 161/79 H Pulse Oximetry [facility] 09/15/22 21:14 09/15/22 21:20 09/15/22 21:22 Temperature Pulse Rate 78 78 73 Pulse Rate [Right Pulse Oximeter] Respiratory Rate Blood Pressure 171/79 H Blood Pressure [Le ft Upper Arm] Pulse Oximetry 100 100 [facility] 09[facility]15/22 21:30 09/15/22 21:32 09/15/22 21:40 Temperature Pulse Rate 72 85 68 Pulse Rate [Right Pulse Oximeter] Respiratory Rate Blood Pressure 170/77 H Blood Pressure [Le ft Upper Arm] Pulse Oximetry 100 100 [facility] 09/15/22 21:41 09/15/22 21:50 09/15/22 21:52 Temperature Pulse Rate 71 74 75 Pulse Rate [Right Pulse Oximeter] Respiratory Rate Blood Pressure 170/72 H 167/73 H Blood Pressure [Le ft Upper Arm] Pulse Oximetry 100 100 [facility] 09/15/22 21:53 09/15/22 21:59 09/15/22 22:00 Temperature Pulse Rate 76 77 Pulse Rate [Right Pulse Oximeter] Respiratory Rate Blood Pressure Blood Pressure [Le ft Upper Arm] Pulse Oximetry 100 100 100 Oxygen Delivery Me thod 09/15/22 22:02 09/15/22 22:10 09/15/22 22:12 Temperature Pulse Rate 73 71 71 Pulse Rate [Right Pulse Oximeter] Respiratory Rate Blood Pressure 165/69 H 161/70 H Blood Pressure [Le ft Upper Arm] Pulse Oximetry 100 100 98 Oxygen Delivery Ar thod 09/15/22 22:22 09/15/22 22:29 09/15/22 22:30 Temperature Pulse Rate 79 74 Pulse Rate [Right Pulse Oximeter] Respiratory Rate Blood Pressure 161/66 H Blood Pressure [Le ft Upper Arm] Pulse Oximetry 100 100 Oxygen Delivery Me thod 09/15/22 22:31 09/15/22 22:40 09/15/22 22:41 Temperature Pulse Rate 72 78 81 Pulse Rate [Right Pulse Oximeter] Respiratory Rate Blood Pressure 162/70 H 160/61 H Blood Pressure [Le ft Upper Arm] Pulse Oximetry 100 100 100 Oxygen Delivery Ar thod 09/15/22 22:42 09/15/22 22:50 09/15/22 22:52 Temperature Pulse Rate 77 74 72 Pulse Rate [Right Pulse Oximeter] Respiratory Rate Blood Pressure 154/62 H Blood Pressure [Le ft Upper Arm] Pulse Oximetry 100 100 100 Oxygen Delivery Ar thod 09/15/22 22:53 09/15/22 23:06 09/15/22 23:10 Temperature Pulse Rate 76 76 73 Pulse Rate [Right Pulse Oximeter] Respiratory Rate Blood Pressure Blood Pressure [Le ft Upper Arm] Pulse Oximetry 100 100 99 Oxygen Delivery Ar thod 09/15/22 23:12 09/15/22 23:20 09/15/22 23:30 Temperature Pulse Rate 75 75 72 Pulse Rate [Right Pulse Oximeter] Respiratory Rate Blood Pressure 141/87 H Blood Pressure [Le ft Upper Arm] Pulse Oximetry 99 97 99 Oxygen Delivery Ar thod 09/15/22 23:32 09/15/22 23:40 09/15/22 23:50 Temperature Pulse Rate 68 72 Pulse Rate [Right Pulse Oximeter] Respiratory Rate Blood Pressure 146/63 H Blood Pressure [Le ft Upper Arm] Pulse Oximetry 99 98 83 L Oxygen Delivery Me thod 09/16/22 00:00 09/16/22 00:02 Temperature Pulse Rate 64 Pulse Rate [Right Pulse Oximeter] Respiratory Rate Blood Pressure 137/61 Blood Pressure [Le ft Upper Arm] Pulse Oximetry 98 Oxygen Delivery Me thod Documenting provider has reviewed patient's vital signs: yes Course Vital Signs Vital signs: Initial Vital Signs Temperature 98.0 F 09/15/22 20:50 Temperature Source Temporal Artery Scan 09/15/22 20:50 Pulse Rate 74 09/15/22 20:50 Pulse Rhythm Regular 09/15/22 20:50 Pulse Strength 3+ Normal 09/15/22 20:50 Respiratory Rate 18 09/15/22 20:50 Blood Pressure 161/79 H 09/15/22 20:50 Blood Pressure Mean 106 H 09/15/22 20:50 Blood Pressure Position Sitting 09/15/22 20:50 Pulse Oximetry 98 09/15/22 20:50 Oxygen Delivery Method Room Air 09/15/22 20:50 Vital Signs Temperature 98.0 F 09/15/22 20:50 Pulse Rate 74 09/15/22 20:50 Respiratory Rate 18 09/15/22 20:50 Blood Pressure 161/79 H 09/15/22 20:50 Pulse Oximetry 98 09/15/22 20:50 Oxygen Delivery Method Room Air 09/15/22 20:50 Temperature 98.0 F 09/15/22 20:50 Pulse Rate 64 09/16/22 00:00 Respiratory Rate 18 09/15/22 20:50 Blood Pressure 137/61 09/16/22 00:02 Pulse Oximetry 98 09/16/22 00:00 Oxygen Delivery Method Room Air 09/15/22 20:50 Medical Decision Making MDM Narrative Medical decision making narrative: Sent directly to head CT as concern of stroke. Head CT assessed by colleague to be without acute bleed proceeded with angiogram study of head and neck. Fo llowing this imaging was my reassessment. I then spoke with son. Seems more of a global issue or perhaps a pain response. Would look for infectious etiology as well. Pending labs would return for imaging of abdomen pelvis. Through the could be cardiac, ischemic or arrhythmia. Pending EKG at this time. Will be monitored on cardiac specialist. Again does not appear to have been a syncopal event. . Preliminary diagnosis is altered mental status of unclear etiology. Differential to also include seizure. Initiated on normal saline. Labs are essentially unremarkable/reassuring. EKG reviewed by me shows an interventricular block. Sinus rhythm. First-degree AV block there is a sinus arrhythmia. Rate of 73. I do not appreciate ischemic changes though I would note does have a history on record of apparently a left bundle branch block. CT a head with CTA head and neck I did review without evidence of acute bleed. Radiology over-read as below IMPRESSION: 1. No evidence of acute intracranial hemorrhage, large transcortical infarct, or mass effect. 2. Disproportionate prominence the ventricles compared to sulci. Findings are nonspecific but may be seen in the setting of central atrophy or communicating hydrocephalus. Angiography does not show any large vessel occlusion or aneurysmal changes Discussed this case with Stroke Neuro. Are in agreement that this seems somewhat puzzling but recommending admission for observation. No other interventions would be recommended. I am wondering if perhaps this is more of a dementia related spell so to speak or again could still be a seizure-like event recently. Warrants MRI follow-up. Maybe EEG as well. Reassessing seems to have some lower abdominal as noted above. Still is altered mentally. Seems agitated anxious. Decided to trial lorazepam IV. This did seem to calm and eventually was mentating near baseline according to family and seemed markedly improved. Smiles at times. Seems to hear much better. Family's expressed some concern about placement of estradiol cream at current place of residence intravaginally that Karoline is describing; this cream is supposed to be placed externally. I am noting this further in record for further inquiry. I did discuss with our hospitalist for admission further monitoring. Pending call back now from overnight hospitalist coverage. Medical Records Medical records reviewed: Yes I reviewed the patient's medical records Lab Data Lab results reviewed: Yes I reviewed the patient's lab results Labs: Lab Results 09/15/22 09/15/22 09/15/22 Range/Units 20:39 20:50 21:40 WBC 5.04 (4.50-11.00) K/uL RBC 4.70 (4.00-5.20) m/uL Hgb 13.7 (12.0-16.0) gm/dL Hct 40.9 (33.0-51.0) % MCV 87 (80-100) fL MCH 29 (26-34) pg MCHC 34 (32-36) gm/dL RDW Coeff of Neli 14.8 (11.5-15.5) % Plt Count 235 (140-440) K/uL Neut % (Auto) 43.6 (42.0-72.0) % Lymph % (Auto) 41.1 (20-44) % [place] % (Auto) 12.1 H (0.0-11.0) % Eos % (Auto) 2.2 (0.0-7.0) % Baso % (Auto) 0.8 (0.0-3.0) % Neut # (Auto) 2.20 (1.7-7.0) K/uL Lymph # (Auto) 2.07 (0.90-2.90) K/uL [place] # (Auto) 0.60 (0.00-0.90) K/UL Eos # (Auto) 0.11 (0.00-0.50) K/uL Baso # (Auto) 0.04 (0.00-0.30) K/uL Sodium 134 L (135-149) mmol/L Potassium 3.5 L (3.6-5.1) mmol/L Chloride 102 (96-114) mmol/L Carbon Dioxide 26 (20-32) mmol/L BUN 26 (7-30) mg/dL Creatinine 1.2 (0.5-1.5) mg/dL Estimated Creat Clear 24.62 Estimated GFR 44 ml/min Glucose 91 (60-115) mg/dL Calcium 9.9 (8.4-10.6) mg/dL Total Bilirubin 0.6 (0.1-1.5) mg/dL AST 29 (12-35) U/L ALT 22 (4-35) U/L Alkaline Phosphatase 74 (40-150) U/L Troponin I 0.03 (0.01-0.04) ng/mL Total Protein 7.6 (6.0-8.3) g/dL Albumin 4.4 (3.3-5.0) g/dL Urine Color Yellow (Yellow) Urine Appearance Clear (Clear) Urine pH 7.0 (5.0-8.5) Ur Specific [place] 1.010 (1.000-1.030) Urine Protein Negative (Negative) Urine Glucose (UA) Negative (Negative) Urine Ketones Negative (Negative) Urine Blood Negative (Negative) Urine Nitrite Negative (Negative) Urine Bilirubin Negative (Negative) Urine Urobilinogen 0.2 (0.2-1.0) Ur Leukocyte Esterase Negative (Negative) Urine RBC 0-2 (0-2) Urine WBC 0-2 (0-5) Ur Squamous Epith Cells None (None-Few) Urine Bacteria None (None) POC Troponin I 0.00 L (0.01-0.04) ng/ml ECG Data Attestation: I personally reviewed and interpreted this ECG as follows: (See above) Critical Care Time Critical Care Time Total Critical Care Time in Minutes: 45 Discharge Plan Discharge Clinical Impression: AMS (altered mental status) Patient Disposition: Admitted As Inpatient Condition: Improved
[2022-09-15 21:09] LABS: Slide Review Reflex No
[2022-09-15 21:44] LABS: Albumin* 4.4 g/dL (3.3-5.0); Chloride* 102 mmol/L (96-114); Potassium* 3.5 mmol/L (3.6-5.1); Sodium* 134 mmol/L (135-149)
[2022-09-15 21:47] LABS: Alkaline Phosphatase* 74 U/L (40-150); Aspartate Amino Transferase* 29 U/L (12-35); Bilirubin Total* 0.6 mg/dL (0.1-1.5); Blood Urea Nitrogen* 26 mg/dL (7-30); Carbon Dioxide* 26 mmol/L (20-32); Creatinine* 1.2 mg/dL (0.5-1.5); Est. Creatinine Clearance* 24.62; Estimated Glomerular Filt Rate 44 ml/min; Glucose* 91 mg/dL (60-115); Total Protein* 7.6 g/dL (6.0-8.3)
[2022-09-15 21:48] LABS: Alanine Aminotransferase* 22 U/L (4-35); Calcium* 9.9 mg/dL (8.4-10.6)
[2022-09-15 21:51] LABS: Appearance Urine Clear (Clear); Bilirubin Urine Negative (Negative); Blood Urine Negative (Negative); Color Urine Yellow (Yellow); Glucose Urine Negative (Negative); Ketones Urine Negative (Negative); Leukocyte Esterase Urine Negative (Negative); Nitrite Urine Negative (Negative); Protein Urine Negative (Negative); Urobilinogen Urine 0.2 (0.2-1.0)
[2022-09-15 22:06] LABS: RBC Urine 0-2 (0-2); WBC Urine 0-2 (0-5)
--- NOTE | 2022-09-15 22:26 | CRLHL7_ITS ---
For Patients: As a result of the Century Cures Act, medical imaging exams and procedure reports are released immediately into your electronic medical record. You may view this report before your referring provider. If you have questions, please contact your health care provider. INDICATION: lower abd pain, ams TECHNIQUE: CT abdomen and pelvis acquired with 54 cc Isovue 370 IV contrast. COMPARISON: None. FINDINGS: Lower chest: The visualized lower lungs are aerated. No pleural or pericardial effusion. ABDOMEN: Liver: Calcified hepatic granulomas. Gallbladder and biliary: Cholecystectomy. Normal caliber bile ducts. Spleen: Calcified splenic granulomas. Pancreas: Normal enhancement without peripancreatic inflammatory changes or ductal dilatation. Adrenal glands: Normal adrenal glands. Kidneys and ureters: Atrophic left kidney. Normal enhancement of the kidneys. Subcentimeter hypodensities are too small to characterize however statistically represent cysts. Retained contrast in the renal collecting systems. GI tract: Large hiatal hernia. Normal caliber small and large bowel loops. Appendix is not definitively visualized. Vascular structures: Patent abdominal aorta with atherosclerotic vascular calcifications. Patent portosplenic confluence, portal veins, and hepatic veins. Lymph nodes: No lymphadenopathy in the abdomen or pelvis by size criteria. Peritoneum: No free air, free fluid, or focal drainable fluid collection. PELVIS: Genitourinary system: Normal urinary bladder. Age-appropriate uterus. An age-appropriate ovaries. SKELETAL STRUCTURES AND SOFT TISSUES: Multilevel lumbar spondylosis. IMPRESSION: 1. No definite acute abdominal or pelvic process. No obstruction. No hydroureteronephrosis. 2. Large hiatal hernia. Please note that all CT scans at this facility use dose modulation, iterative reconstruction, and/or weight-based dosing when appropriate to reduce radiation dose to as low as reasonably achievable. Dictated by Nick Ortega MD @ 09/15/2022 11:29:39 PM (Electronically Signed)
[2022-09-15] MEDS: 0.9 % SODIUM CHLORIDE 1000 ml 1,000 ML IV (22:50)
[2022-09-15] MEDS: LORazepam 2 MG/ML inj 0.5 MG IVP (22:50)
[2022-09-16] VITALS (9 sets, daily range): BP systolic 124–145; BP diastolic 45–69; PULSE 64–76; RESP 14–20; TEMP 36.7–36.9; O2SAT 96–98
--- NOTE | 2022-09-16 00:42 | ED.NURSE ---
Pt assisted to use bedpan as she was more alert. After using bedpan, pt assisted to change gown, brief, and chux underneath her. Pt able to assist RN and emergency vehicle technician with lifting to change.
--- NOTE | 2022-09-16 00:46 | ED.NURSE ---
Upon arrival to ER, pt not opening eyes to sound and speech was garbled in nature. At this time, pt is A&Ox3. Will continue to monitor.
[2022-09-16 00:49] LABS: Troponin I* 0.03 ng/mL (0.01-0.04)
--- NOTE | 2022-09-16 00:57 | ED.NURSE ---
Pt taken to med/surg CCU1. All belongings sent with pt. Daughters and son with pt up to the floor. Report called. All questions answered.
--- NOTE | 2022-09-16 05:54 | PC.NURSE ---
Admitted to observation at 0100, accompanied by 2 daughter and son. Alert and oriented to person, date of and place. Intermittent confusion noted and patient word searches to answer questions but per family report this is her baseline cognitive functioning. Per family report, patient lives in the memory care unit at [facility] and around supper time last evening she had increased weakness, and decreased verbal response, patient was leaning to the side when sitting up. Patient transported via EMS to ER to rule out stroke. Patient returned to baseline while in emergency room. Hand grasps equal and strong, foot strength strong and equal. Lung sounds clear bilaterally, denies any shortness of breath or cough. Bowel sounds active x 4 quadrants, abdomen soft and non tender, patient had bowel movement in ER prior to admitting to floor. Ambulates with SBA, patient does not use any adaptive devices for walking. Denies any pain. Continent of bladder and bowel. Admitted via O[facility] DENISE, new order for cardiac monitoring. Telemetry box applied at 0300 via order. Increased risk for fall, fall alarm applied.
[2022-09-16] MEDS: SERTRALINE 50 MG TABLET 75 MG PO (11:16)
[2022-09-16] MEDS: AMLODIPINE 5 MG TABLET 2.5 MG PO (11:17)
[2022-09-16] MEDS: SODIUM CHLORIDE 0.9 % (FLUSH) 10 ML SYRINGE 5 ML IVF (11:17)
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
[2022-09-16] MEDS: ACETAMINOPHEN 325 MG TABLET 650 MG PO (13:42)
--- NOTE | 2022-09-16 15:49 | PC.NURSE ---
patient is sitting up in a chair visiting with family. Daughter states she feels her mom is at her baseline. She is currently enjoying a cup of chocolate ice cream has no complaints.
[2022-09-16] MEDS: SIMVASTATIN 10 MG TABLET PO (17:24)
--- NOTE | 2022-09-16 17:49 | PC.NURSE ---
End of Shift Note: Patient has had a good day. She has been up with assistance to the bathroom, sat in the recliner for meals. No confusion noted does struggle with when you ask her her birthday has trouble recalling the year. Otherwise patient has answered questions appropriately today. Will continue to monitor until the next shift arrives.
[2022-09-17 03:00] VITALS: BP 139/62; PULSE 73; RESP 14; TEMP 36.7; O2SAT 95
--- NOTE | 2022-09-17 05:56 | PC.NURSE ---
Pleasant and and cooperative with cares. Alert and oriented to person, date of and place. Denies any pain, no signs of discomfort. Lung sounds clear, denies any shortness of breath or cough. Bowel sounds active x 4 quadrants. Patient slept well, up x 1 to use the bathroom. Ambulates with SBA and walker, requires reminders to use walker.
[2022-09-17 07:00] VITALS: BP 110/52; PULSE 78; RESP 14; TEMP 36.6; O2SAT 95
[2022-09-17] MEDS: QUETIAPINE 25 MG TABLET 12.5 MG PO (08:58)
[2022-09-17] MEDS: AMLODIPINE 5 MG TABLET 2.5 MG PO (08:58)
[2022-09-17] MEDS: ASPIRIN 81 MG TABLET EC PO (08:59)
[2022-09-17] MEDS: SERTRALINE 50 MG TABLET 75 MG PO (08:59)
[2022-09-17] MEDS: FUROSEMIDE 20 MG TABLET PO (08:59)
[2022-09-17 10:09] VITALS: BP 137/61; PULSE 68; RESP 14; TEMP 36.6
--- NOTE | 2022-09-17 12:03 | P.DS_ITS ---
DS: Providers Provider Date Seen: 09/17/22 Date of admission: 09/16/22 00:57 Primary care physician: Tito [facility] MD Admitting Clinician: Jerry Mccracken MD Consults: SW, PT, OT Attending Physician on discharge: Allison Shen MD Date of Discharge: 09/17/22 DS: Diagnosis Discharge Diagnosis (1) AMS (altered mental status): Status: Acute Problem details: - resolved during stay - no acute findings on imaging, no evidence of UTI or bacteremia (2) Thyroid nodule: Status: Acute Problem details: - incidentally noted on admission imaging - family aware, considering workup but likely not within patient's goals of care (3) Fall: Status: Acute Problem details: - no acute findings on imaging, followed by therapies during stay (4) Cerebrovascular disease: Status: Acute Problem details: - with vascular dementia problems (5) Gastroesophageal reflux disease with esophagitis: Status: Acute Problem details: - UGI, 2019. Lg hiatal hernia. (6) Neuropathy: Status: Acute (7) Osteoporosis: Status: Acute DS: Summary Hospital Course Hospital Course: Karoline Nuñez is a very pleasant 86 year old female with a known history of dementia, admitted to the hospital on 09/16 after a fall and mental status change. Imaging in ED was reassuring; Neurology consulted by phone from ED and did not recommend any further workup or interventions. Imaging in the ED reassuring and patient was back to baseline on hospital day 1, family comfortable taking her home as she was medically stable. They are moving her to a new Memory Care facility early next week. No changes made to home medications, comorbidities remained stable. Status at Discharge Functional status at discharge: uses cane/walker Overall status at discharge: patient is progressing back to baseline Time Spent with Patient Time attestation: Total time spent providing and/or coordinating discharge services: Time spent: Greater than 30 minutes Specific discharge activities: Family updates/education, medication reconciliation, discharge planning Exam Narrative: Exam Narrative: GEN: Patient is seen in the room ambulating with a walker, able to seat herself in bedside chair HEENT: EOMIs bilaterally, no scleral icterus CV: RRR, No concerning murmurs R: LCTA bilaterally without concerning wheezing, air movement adequate Ext: wwp, no concerning edema Skin: No concerning skin lesions or rashes on exposed skin 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, no facial droop, no resting tremor Psych: Mild cognitive impairment is evident, no agitation Const: Vital Signs, click to edit/add: Vital Signs - 24 hr 09/16/22 15:00 09/16/22 15:00 09/16/22 19:00 Temperature 98.5 F 98.2 F Pulse Rate Pulse Rate [Pulse Oximeter] 69 69 76 Respiratory Rate 20 20 16 Blood Pressure Blood Pressure [Le ft Arm] 124/69 129/45 L Pulse Oximetry 97 97 Oxygen Delivery Me thod Room Air Room Air 09/16/22 23:30 09/17/22 03:00 09/17/22 07:00 Temperature 98.0 F 97.9 F Pulse Rate Pulse Rate [Pulse Oximeter] 73 78 Respiratory Rate 14 14 14 Blood Pressure Blood Pressure [Le ft Arm] 139/62 110/52 L Pulse Oximetry 95 95 Oxygen Delivery Me thod Room Air Room Air 09/17/22 07:00 09/17/22 10:09 Temperature 97.9 F Pulse Rate 68 Pulse Rate [Pulse Oximeter] 78 Respiratory Rate 14 14 Blood Pressure 137/61 Blood Pressure [Le ft Arm] Pulse Oximetry Oxygen Delivery Me thod DS: Data Data Completed and Pending Labs on day of discharge: Preliminary micro results at discharge 09/15/22 21:25 Blood Culture - Preliminary Blood NO GROWTH AFTER 24 HOURS 09/15/22 21:18 Blood Culture - Preliminary Blood NO GROWTH AFTER 24 HOURS Discharge Plan Discharge Disposition: Home, Self-Care Date of Admission: 09/16/22 00:57 Attending Provider on Discharge: Allison Shen Primary Care Provider: Tito [facility] Condition: Improved Anticipated Discharge Date/Time: 09/17/22 10:06 Discharge Medications: New quetiapine 25 mg Tablet 12.5 mg PO QAM Qty: 30 0RF Rx Instructions: May give an extra dose at night for sleeping if needed simvastatin 10 mg Tablet 10 mg PO QPM Qty: 30 0RF amlodipine 5 mg Tablet 2.5 mg PO DAILY Qty: 30 0RF aspirin 81 mg Tablet,Delayed Release (Dr/Ec) 81 mg PO DAILY Qty: 30 0RF furosemide 20 mg Tablet 20 mg PO QAM Qty: 30 0RF sertraline 50 mg Tablet 75 mg PO DAILY Qty: 45 0RF Continued furosemide 20 mg tablet 20 mg PO QAM Qty: 90 3RF aspirin [Adult Aspirin Regimen] 81 mg tablet,delayed release (DR/EC) 81 mg PO DAILY multivitamin [Daily Multi-Vitamin] Tablet 1 tab PO DAILY quetiapine 25 mg tablet 12.5 mg PO QAM Patient Comments: PLUS 12.5 MG BID PRN AGITATION Debrox 6.5 % drops 4 drp otic (ear) YUEN Rx Instructions: EVERY THURSDAY EVENING acetaminophen 500 mg capsule 1,000 mg PO BID PRN amlodipine 2.5 mg tablet 2.5 mg PO QDAY sertraline 50 mg tablet 75 mg PO QDAY Artificial Tears (PF) 0.1-0.3 % dropperette 1 drp ophthalmic (eye) Q4H PRN estradiol 0.01 % (0.1 mg/gram) cream 1 g vaginal 2XW PRN Rx Instructions: apply to perineal area twice weekly simvastatin 10 mg tablet 10 mg PO QPM Qty: 90 3RF Discharge Orders: Discharge Order (Routine); Ordered 09/17/22 Ordered By: Allison Shen Patient Education: Furosemide (By mouth) (Lasix), Aspirin (By mouth) (Lindsay Extra Strength, Lindsay Aspirin Children's,..., Sertraline (By mouth) (Zoloft), Amlodipine (By mouth) (Hypertenipine-2.5, Norvasc, Norliqva), Simvastatin (By mouth) (Zocor), Quetiapine (By mouth) (Seroquel, Seroquel XR, Seroquel XR 14- Day..., Acute Delirium (DC) Additional Instructions: 1 month of prescriptions sent to [facility]. Activity Level: Use Walker Discharge Diet: Regular Follow Up Appointments: Tito [facility] MD [Primary Care Provider] - (f/u with new physician in [place] Family will be moving patient to a Alf.) Forms: [employer] Info Instructions
--- NOTE | 2022-09-17 12:16 | PC.NURSE ---
Discharge: Patient pleasant and cooperative. Patient oriented to self. Patient vitally stable, lungs clear, BS WNL, NO IV. Patient SBA/walker. Patient denies pain. Patient urinating, had 2 BM's and tolerating regular diet. Patient's daughter signed belongings sheet and discharge form. Family had no further questions regarding discharge. Patient left the floor by wheelchair to home at 1211.
--- NOTE | 2022-09-17 15:09 | PC.SOCIAL ---
Discharge planning: Late Entry: On 09/16/22, met with family members regarding discharge plan. Family are unhappy about some things that had happened at [facility] and are making arrangements for pt to move to [facility] living in [place]. Dtr, October, states pt will live with family members until she is admitted to [facility]. 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
--- NOTE | 2022-09-17 15:12 | PC.APCO ---
Discharge planning: Late Entry: On 09/16/22, met with family members regarding discharge plan. Family are unhappy about some things that had happened at [facility] and are making arrangements for pt to move to [facility] living in [place]. Dtr, October, states pt will live with family members until she is admitted to [facility]. 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
--- NOTE | 2022-10-22 13:18 | PC.SOCIAL ---
Received a phone call from pt's daughter (Renee) requesting information on where to call to make a facilities complaint on [facility]. Renee informs that she received bills for services that were not provided to her mother and has not gotten a response from the facility. Consulted with administration and was provided the following information. Health Facility complaints: [phone] or?[email or web address] call to pt's daughter and provided her with the information. Pt's daughter asks if Bharati Cuevas is in office to discuss the [facility] report that was completed by Bharati. Informed pt's daughter that Bharati is out of the office, but this worker can send Bharati an e-mail providing her with the contact information to follow up. Informed Daughter that Bharati may not return until Thursday of next week, daughter stated it was no espinoza and she will wait to hear back. Social Work will follow up as needed.
== END 2022-09-17 12:11 | disposition home or self-care (01) ==
LOC: ED 09-16 00:26 → MEDSURG 09-16 00:58
PROVIDERS: Family Medicine; Admitting Provider Hospitalist; Emergency Provider Family Medicine; PCP Family Medicine; Visit Provider Hospitalist
DX: R41.82 Altered mental status, unspecified (principal); I67.9 Cerebrovascular disease, unspecified; E04.1 Nontoxic single thyroid nodule; K44.9 Diaphragmatic hernia without obstruction or gangrene; I12.9 Hypertensive chronic kidney disease with stage 1 through stage 4 chronic kidney disease, or unspecified chronic kidney disease; N18.30 Chronic kidney disease, stage 3 unspecified; K21.00 Gastro-esophageal reflux disease with esophagitis, without bleeding; G62.9 Polyneuropathy, unspecified; M81.0 Age-related osteoporosis without current pathological fracture; R10.31 Right lower quadrant pain; E78.5 Hyperlipidemia, unspecified; R06.4 Hyperventilation; I49.8 Other specified cardiac arrhythmias; M54.9 Dorsalgia, unspecified; W19.XXXA Unspecified fall, initial encounter; Z79.82 Long term (current) use of aspirin; Z98.41 Cataract extraction status, right eye; Z90.5 Acquired absence of kidney; Z98.42 Cataract extraction status, left eye; Z98.890 Other specified postprocedural states; Z86.59 Personal history of other mental and behavioral disorders; Z90.49 Acquired absence of other specified parts of digestive tract; I45.4 Nonspecific intraventricular block; Z66 Do not resuscitate
CPT/HCPCS: 36415; 70450; 70496; 70498; 74177; 80053; 81001; 84484; 85025; 87040; 93005; 96361; 96374; 97116; 97162; 97165; 99285; 99291; G0378; A9270; J2060; J7030; Q9967